=== PATIENT | male | born 1975 | race Caucasian/White ===

== ENCOUNTER 2020-12-09 23:36 | Inpatient (IN) | payer OTHER, SELFPAY ==
[2020-12-10 01:13] VITALS: BMI 40.6
[2020-12-10] MEDS: QUEtiapine Fumarate 400 MG TABLET PO ×2 (01:56→21:22)
[2020-12-10] MEDS: Gabapentin 400 MG CAPSULE PO ×2 (01:56→08:57)
[2020-12-10] MEDS: Divalproex Sodium ER 500 MG TAB.ER.24H 1000 MG PO ×3 (01:56→21:22)
[2020-12-10] MEDS: traZODone HCL 100 MG TABLET 200 MG PO ×2 (01:57→21:22)
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
--- NOTE | 2020-12-10 03:52 | PC.NURSE ---
PT's med rec included insulin. This PT stated that he has never taken insulin and he doesn't plan to start now . wedger machine provider informed.
[2020-12-10 08:24] LABS: Glucose, Whole Blood 92 mg/dL (60-115)
[2020-12-10] MEDS: Omeprazole 20 MG CAPSULE.DR PO ×2 (08:55→16:15)
[2020-12-10] MEDS: Atorvastatin Calcium 80 MG TABLET PO (08:55)
[2020-12-10] MEDS: Clopidogrel Bisulfate 75 MG TABLET PO (08:55)
[2020-12-10 08:56] VITALS: BP 119/68; PULSE 82
[2020-12-10] MEDS: Sertraline HCL 50 MG TABLET PO (08:56)
[2020-12-10] MEDS: Levothyroxine Sodium 125 MCG TABLET PO (08:56)
[2020-12-10] MEDS: dilTIAZem HCL SR 90 MG CAP.ER.12H 180 MG PO (08:56)
[2020-12-10] MEDS: Doxazosin Mesylate 2 MG TABLET PO (08:57)
[2020-12-10] MEDS: Rivaroxaban 15 MG TABLET PO (08:57)
[2020-12-10] MEDS: LORazepam 0.5 MG TABLET PO (08:57)
[2020-12-10] MEDS: Metoprolol Succinate ER 50 MG TAB.ER.24H PO (08:57)
[2020-12-10] MEDS: QUEtiapine Fumarate 100 MG TABLET PO (08:58)
[2020-12-10 09:43] VITALS: RESP 16; TEMP 36.2; O2SAT 97
--- NOTE | 2020-12-10 12:28 | HO.PM.IMCN ---
History of Present Illness Data of Consult Service Date: 12/10/20 Requesting physician: Asad Kincaid Primary Care Provider: Unknown Physician HPI Reason for consult: medical H and P 45 year male with CAD by his report has had multiple WA, he has coronary stent in place since 2006, h/o of diabetes on insulin, and Metformin, hypothyrodisim, hyperlipedemia and is obese. He is on Xarelto--indication is not clear to me. He is presently admitted to inpatient Psych unit due to increasing mood and I try to kill myself. He seems fairly stable from medical stand point, denies, angina, sob . Review of Systems Review of Systems: Gen: no fever Resp: no sob, no cough CV: no chest, no ROSE, no leg edema GI: No n/v, no abd pain Neuro: No confusion Yes all other systems are reviewed and are negative [facility] Medical History (Updated 12/10/20 @ 13:51 by Kurtis Erwin MD) BPH (benign prostatic hyperplasia) CAD (coronary artery disease) Diabetes History of pulmonary embolism HLD (hyperlipidemia) Hypothyroid Obesity Pertinent family history: CAD in father, grandfather Surgical History (Updated 12/10/20 @ 12:34 by Kurtis Erwin MD) History of coronary artery stent placement Social History Household Members: Unknown / Unable to assess Patient Tobacco Use Status: Never used Tobacco Use of substances other than those prescribed or required for medical reasons: No Currently Displaying Signs/Symptoms of Drug Intoxication Withdrawal: No Have you been hit, kicked, punched, or otherwise hurt by someone within the past year? If so, by whom?: No Do you feel safe in your current relationship?: No Is there a partner from a previous relationship who is making you feel unsafe now?: No Are you made to feel afraid or neglected: No Religion Healthcare Practices: Faith Advance Directives: No Advance Directives Information Provided: No (declined) Advance Directives on File: No Do you have thoughts of harming others: None Do you have a plan to hurt others: No Plan Recently lost weight without trying: No How much weight loss: Not applicable Eating poorly because of decreased appetite: No Nutrition screen score: 0 Nutrition Risks: No Nutritional Risk Poor oral hygiene: No Meds Allergies Allergy/AdvReac Type Severity Reaction Status Date / Time acetaminophen [From TYLENOL] Allergy Severe ANAPHYLAXIS Unverified 12/25/19 19:43 aspirin [ASA] Allergy Severe ANAPHYLAXIS Unverified 12/25/19 19:43 nitroglycerin [NITROGLYCERIN] Allergy Severe ANAPHYLAXIS Unverified 12/25/19 19:43 amoxicillin [AMOXICILLIN] Allergy Mild RASH Unverified 12/25/19 19:43 ibuprofen [IBUPROFEN] Allergy Mild ANAPHYLAXIS Unverified 12/25/19 19:43 Active Medications: Current Medications Generic Name Dose Route Start Last Admin Trade Name Manuelq PRN Reason Stop Dose Admin Al Hydroxide/Mg Hydroxide 30 ml 12/10/20 01:20 Magnesium Hydrox/Alum Hydrox 30 Ml Oral.Susp PO Q6H PRN Heartburn/Nausea Atorvastatin Calcium 80 mg 12/10/20 09:00 12/10/20 08:55 Atorvastatin Calcium 80 Mg Tablet PO 80 mg DAILY ALYCIA Administration Clopidogrel Bisulfate 75 mg 12/10/20 09:00 12/10/20 08:55 Clopidogrel Bisulfate 75 Mg Tablet PO 75 mg DAILY ALYCIA Administration Dextrose 25 gm 12/10/20 01:39 Dextrose 50 % 25 Gm/50 Ml Vial IVPUSH Q15M PRN per Hypoglycemia Standing Ord. Protocol Diltiazem HCl 180 mg 12/10/20 09:00 12/10/20 08:56 Diltiazem Hcl Sr 90 Mg Cap.Er.12h PO 180 mg DAILY ALYCIA Administration Protocol Divalproex Sodium 1,000 mg 12/10/20 01:40 12/10/20 08:56 Divalproex Sodium Er 500 Mg Tab.Er.24h PO 1,000 mg BID ALYCIA Administration Doxazosin Mesylate 2 mg 12/10/20 09:00 12/10/20 08:57 Doxazosin Mesylate 2 Mg Tablet PO 2 mg DAILY ALYCIA Administration Protocol Gabapentin 400 mg 12/10/20 01:40 12/10/20 08:57 Gabapentin 400 Mg Capsule PO 400 mg BID ALYCIA Administration Glucose 15 gm 12/10/20 01:39 Glucose Gel 15 Gm Gel..Gram. PO Q15M PRN per Hypoglycemia Standing Ord. Protocol Hydroxyzine HCl 25 mg 12/10/20 01:20 Hydroxyzine Hcl 25 Mg Tablet PO BEDTIME PRN Anxiety Insulin Glargine 10 unit 12/10/20 21:00 Insulin Glargine,Hum.Rec.Anlog 100 Unit/Ml 10 Ml Vial SUBCUT BEDTIME ALYCIA Levothyroxine Sodium 125 mcg 12/10/20 06:00 12/10/20 08:56 Levothyroxine Sodium 125 Mcg Tablet PO 125 mcg DAILY@0600 ALYCIA Administration Lorazepam 0.5 mg 12/10/20 09:00 12/10/20 08:57 Lorazepam 0.5 Mg Tablet PO 0.5 mg DAILY ALYCIA Administration Magnesium Hydroxide 30 ml 12/10/20 01:20 Milk Of Magnesia 30 Ml Oral.Susp PO DAILY PRN Constipation Metoprolol Succinate 50 mg 12/10/20 09:00 12/10/20 08:57 Metoprolol Succinate Er 50 Mg Tab.Er.24h PO 50 mg DAILY ALYCIA Administration Protocol Omeprazole 20 mg 12/10/20 06:30 12/10/20 08:55 Omeprazole 20 Mg Capsule.Dr PO 20 mg BID@0630,1630 ALYCIA Administration Quetiapine Fumarate 400 mg 12/10/20 21:00 Quetiapine Fumarate 400 Mg Tablet PO BEDTIME ALYCIA Quetiapine Fumarate 100 mg 12/10/20 09:00 12/10/20 08:58 Quetiapine Fumarate 100 Mg Tablet PO 100 mg DAILY ALYCIA Administration Rivaroxaban 15 mg 12/10/20 09:00 12/10/20 08:57 Rivaroxaban 15 Mg Tablet PO 15 mg DAILY ALYCIA Administration Sertraline HCl 50 mg 12/10/20 09:00 12/10/20 08:56 Sertraline Hcl 50 Mg Tablet PO 50 mg DAILY ALYCIA Administration Tramadol HCl 50 mg 12/10/20 01:30 Tramadol Hcl 50 Mg Tablet PO Q6H PRN Pain Mild, moderate or severe Trazodone HCl 50 mg 12/10/20 01:20 Trazodone Hcl 50 Mg Tablet PO BEDTIME PRN Insomnia Trazodone HCl 200 mg 12/10/20 21:00 Trazodone Hcl 100 Mg Tablet PO BEDTIME [facility] Physical Exam Vital Signs and Narrative: Vital Signs: Last Vital Signs Temp 97.1 F 12/10/20 09:43 Pulse 82 12/10/20 08:56 Resp 16 12/10/20 09:43 BP 119/68 12/10/20 08:56 Pulse Ox 97 12/10/20 09:43 Body Mass Index 40.6 Constitutional Awake and Alert, No apparent distress HEENT--anicteria Neck Supple, No lymphadenopathy Cardiovascular RRR, No M/R/G, S1 S2, No S3 S4, No pedal edema Respiratory Lungs clear, No respiratory distress Gastrointestinal Non tender, Non-distended Skin No rash Neurological Alert & oriented x3, CN 2 to 12 intact Psychological Appropriate affect Results Labs CBC and Chem 7: 12/10/20 13:34 12/10/20 13:34 Labs: Laboratory Results - last 24 hr 12/10/20 08:20 POC Glucose 92 Assessment and Plan (1) Obesity: Status: Acute (2) Hypothyroid: Status: Acute (3) HLD (hyperlipidemia): Status: Acute (4) History of pulmonary embolism: Status: Acute (5) Diabetes: Status: Acute (6) CAD (coronary artery disease): Status: Acute (7) BPH (benign prostatic hyperplasia): Status: Acute 45 year male with CAD with WA in past, s/p coronary stent in past, diabetes, HLD, hypothyroidism, GERD here with depression with suicidality. 1/Diabetes--He has been on Metformin but has been taken off by PCP. We should hold Lantus, check A1c and, likey diet controlled. SSI for now 2/CAD/WA--stable, no angina, continue metoprolol, statin, d/t Xarelto and Plavix. Has Aspirin allergy 3/HLD--continue Lipitor 4/Hypothyrodism--continue levothyroxine at home dose of 25 mcg daily, not 125mcg, pharmacy record also 25 mgc daily 5/RENEE--Omeprazone 6/Depression--management per Psych 7/ history of PEon Xarelto since decemberJuly 2019, not sure why he's still on it beyond 6 months, there maybe a reason such hypergoag state--need to be clarify by primary but for now continue. Xarelto prescription was renewed on November 15, 2020. 8/BPH--Flomax 9/Obesity--weight loss advised Additionally patient is Suboxone, Sinemet--presently not ordered and he is looking for them, these to be reviewed by Psych for approprateness, discussed with nurse
[2020-12-10 13:46] LABS: Hematocrit 41.2 % (42-52); Mean Corpuscular Hemoglobin 31.8 pg (27.0-33.0); Mean Corpuscular Volume 93.6 fL (80-98); Mean Platelet Volume 10.1 fL (9.4-12.4); Platelet Count 258 X10*3/uL (160-400); Red Cell Distribution Width 13.1 % (11.0-16.0); White Blood Count 4.9 X10*3/uL (4.8-10.8)
[2020-12-10 14:03] LABS: Anion Gap 10 (12-20); Blood Urea Nitrogen 15 mg/dL (9-16); Calcium 8.8 mg/dL (8.4-10.2); Carbon Dioxide 24 mmol/L (22-29); Chloride 106 mmol/L (96-108); Estimated Glomerular Filt Rate > 60; Glucose Random 179 mg/dL (60-115); Potassium 4.1 mmol/L (3.3-5.1); Sodium 136 mmol/L (135-145)
[2020-12-10 14:19] LABS: Estimated Average Glucose 111 mg/dL; Hemoglobin A1c % 5.5 %
[2020-12-10 14:30] LABS: TSH reflex Free T4 1.85 uIU/mL (0.32-4.0)
[2020-12-10 16:39] LABS: Glucose, Whole Blood 118 mg/dL (60-115)
[2020-12-10 18:00] VITALS: BP 120/64; PULSE 79; RESP 20; TEMP 36.2; O2SAT 95
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
[2020-12-10] MEDS: Ibuprofen 400 MG TABLET PO (19:29)
[2020-12-10] MEDS: Famotidine 20 MG TABLET PO (20:48)
[2020-12-10] MEDS: Gabapentin 300 MG CAPSULE PO (21:22)
[2020-12-10] MEDS: Carbidopa/Levodopa 25/100 TABLET 1 TAB PO (21:22)
[2020-12-10] MEDS: Tamsulosin HCL 0.4 MG CAPSULE PO (21:22)
[2020-12-10] MEDS: Buprenorphine/Naloxone 8/2 mg FILM 1 FILM SUBLINGUAL (21:23)
[2020-12-10] MEDS: Melatonin 3 MG TABLET PO (21:23)
[2020-12-11 06:00] VITALS: BP 122/58; PULSE 64; RESP 22; TEMP 36.3; O2SAT 95
[2020-12-11] MEDS: Omeprazole 20 MG CAPSULE.DR PO ×2 (06:47→16:53)
[2020-12-11 06:56] LABS: Glucose, Whole Blood 158 mg/dL (60-115)
[2020-12-11] MEDS: Levothyroxine Sodium 25 MCG TABLET PO (06:56)
[2020-12-11] MEDS: Ferrous Sulfate 324 MG TABLET.DR PO (08:30)
[2020-12-11] MEDS: Sertraline HCL 50 MG TABLET 150 MG PO (08:30)
[2020-12-11] MEDS: Multivitamin TABLET 1 TAB PO (08:30)
[2020-12-11] MEDS: Divalproex Sodium ER 500 MG TAB.ER.24H 1000 MG PO ×2 (08:30→20:54)
[2020-12-11] MEDS: Clopidogrel Bisulfate 75 MG TABLET PO (08:30)
[2020-12-11] MEDS: Carbidopa/Levodopa 25/100 TABLET 1 TAB PO ×2 (08:30→20:53)
[2020-12-11] MEDS: QUEtiapine Fumarate 100 MG TABLET PO (08:30)
[2020-12-11 08:31] VITALS: BP 135/75; PULSE 81
[2020-12-11] MEDS: lisinopriL 5 MG TABLET PO (08:31)
[2020-12-11] MEDS: Metoprolol Succinate ER 100 MG TAB.ER.24H PO (08:31)
[2020-12-11] MEDS: Buprenorphine/Naloxone 8/2 mg FILM 0.5 FILM SUBLINGUAL (08:32)
[2020-12-11] MEDS: Rivaroxaban 20 MG TABLET PO (08:32)
[2020-12-11] MEDS: Buprenorphine/Naloxone 8/2 mg FILM 1 FILM SUBLINGUAL ×2 (08:32→20:54)
[2020-12-11] MEDS: OLANZapine 5 MG TABLET PO (08:32)
[2020-12-11] MEDS: metFORMIN HCl 500 MG TABLET PO ×2 (08:32→16:53)
[2020-12-11] MEDS: Famotidine 20 MG TABLET PO ×2 (08:32→20:54)
[2020-12-11] MEDS: Gabapentin 300 MG CAPSULE PO ×2 (08:32→20:54)
[2020-12-11 08:33] LABS: MANUAL DIFF FLAG NO
[2020-12-11 08:35] LABS: Basophils Percent Auto 0.4 % (0-2); Eosinophils Absolute Auto 0.1 X10*3/uL (0.0-0.4); Eosinophils Percent Auto 2.2 % (0-4); Hematocrit 39.8 % (42-52); Hemoglobin 13.7 g/dl (14.0-18.0); Imm Gran Abs Auto 0.05 X10*3/uL (0.00-0.03); Imm Gran Pct Auto 1.1 % (0.0-0.4); Lymphocytes Absolute Auto 2.2 X10*3/uL (1.2-4.9); Lymphocytes Percent Auto 47.6 % (20-40); Mean Corpuscular HGB Conc 34.4 g/dl (31.0-36.0); Mean Platelet Volume 10.4 fL (9.4-12.4); Monocytes Absolute Auto 0.6 X10*3/uL (0.1-1.2); Monocytes Percent Auto 12.6 % (2-11); Neutrophils Absolute Auto 1.7 X10*3/uL (2.0-8.3); Neutrophils Percent Auto 36.1 % (45-73); Platelet Count 265 X10*3/uL (160-400); Red Blood Count 4.28 X10*6/uL (4.60-5.80); White Blood Count 4.6 X10*3/uL (4.8-10.8)
[2020-12-11 09:14] LABS: Vitamin D 25-OH Total 38.5 ng/mL (>30)
--- NOTE | 2020-12-11 12:45 | P.PNPSI_ITS ---
Subjective Subjective Date of Service: 12/11/20 Reason For Visit: Unspecified Depressive Disorder Interim History: Has been largely adherent with care. Chart reviewed. requesting diet change and there is uncertainty around diabetes status and if this is diet controlled. Client does not adhere to a diabetic diet outside hospital. When asked to discuss admission circumstances, he reported preferring not to talk about these things. As per staff no clear hallucinations. Mood carla ears okay. Medication Compliance: Yes Attending Groups: Yes Review of Systems Medical Review of Systems: unchanged Review of Systems Review of Systems noncontributory Mental Status Exam Mental Status Exam Narrative: pleasant. Limited engagement. casually dressed. Obese. In day area. He concrete. Restricted affect. Denied depression. No evidence of SI or HI. No overt psychosis noted, but hallucinations as per staff. Insight and judgment okay Diagnostics Vital Signs (24Hr): Vital Signs - 24 hr 12/10/20 18:00 12/11/20 06:00 12/11/20 08:31 Temperature 97.1 F 97.3 F Pulse Rate 79 64 81 Respiratory Rate 20 22 H Blood Pressure 120/64 122/58 L 135/75 Pulse Oximetry 95 95 Body Mass Index 40.6 Labs Results: 12/11/20 08:00 12/10/20 13:34 Labs: Laboratory Results - last 48 hr 12/10/20 12/10/20 12/10/20 08:20 12:53 13:34 WBC RBC Hgb Hct MCV MCH MCHC RDW Plt Count MPV Immature Gran % (Auto) Neut % (Auto) Lymph % (Auto) [place] % (Auto) Eos % (Auto) Baso % (Auto) Lymph # (Auto) [place] # (Auto) Eos # (Auto) Baso # (Auto) Abs Immat Gran (auto) Absolute Neuts (auto) Absolute Nucleated RBC Nucleated RBC % (auto) Sodium 136 Potassium 4.1 Chloride 106 Carbon Dioxide 24 Anion Gap 10 L BUN 15 Creatinine 0.70 Estim Creat Clear Calc 176.0 Estimated GFR > 60 POC Glucose 92 Random Glucose 179 H Estimat Average Glucose 111 Hemoglobin A1c % 5.5 Calcium 8.8 25-OH Vitamin D Total TSH 12/10/20 12/10/20 12/10/20 13:34 13:34 16:35 WBC 4.9 RBC 4.40 L Hgb 14.0 Hct 41.2 L MCV 93.6 MCH 31.8 MCHC 34.0 RDW 13.1 Plt Count 258 MPV 10.1 Immature Gran % (Auto) Neut % (Auto) Lymph % (Auto) [place] % (Auto) Eos % (Auto) Baso % (Auto) Lymph # (Auto) [place] # (Auto) Eos # (Auto) Baso # (Auto) Abs Immat Gran (auto) Absolute Neuts (auto) Absolute Nucleated RBC 0.000 Nucleated RBC % (auto) 0.0 Sodium Potassium Chloride Carbon Dioxide Anion Gap BUN Creatinine Estim Creat Clear Calc Estimated GFR POC Glucose 118 H Random Glucose Estimat Average Glucose Hemoglobin A1c % Calcium 25-OH Vitamin D Total TSH 1.85 12/11/20 12/11/20 12/11/20 06:53 08:00 08:00 WBC 4.6 L RBC 4.28 L Hgb 13.7 L Hct 39.8 L MCV 93.0 MCH 32.0 MCHC 34.4 RDW 13.0 Plt Count 265 MPV 10.4 Immature Gran % (Auto) 1.1 H Neut % (Auto) 36.1 L Lymph % (Auto) 47.6 H Robertson % (Auto) 12.6 H Eos % (Auto) 2.2 Baso % (Auto) 0.4 Lymph # (Auto) 2.2 Robertson # (Auto) 0.6 Eos # (Auto) 0.1 Baso # (Auto) 0.0 Abs Immat Gran (auto) 0.05 H Absolute Neuts (auto) 1.7 L Absolute Nucleated RBC 0.000 Nucleated RBC % (auto) 0.0 Sodium Potassium Chloride Carbon Dioxide Anion Gap BUN Creatinine Estim Creat Clear Calc Estimated GFR POC Glucose 158 H Random Glucose Estimat Average Glucose Hemoglobin A1c % Calcium 25-OH Vitamin D Total 38.5 TSH Medications Medications Current Medications Generic Name Dose Route Start Last Admin Trade Name Freq PRN Reason Stop Dose Admin Al Hydroxide/Mg Hydroxide 30 ml 12/10/20 01:20 Magnesium Hydrox/Alum Hydrox 30 Ml Oral.Susp PO Q6H PRN Heartburn/Nausea Albuterol Sulfate 2 puff 12/10/20 17:04 Albuterol Sulfate 90 Mcg 8 Gm Inhaler INHALE RQ4H PRN asthma Atorvastatin Calcium 40 mg 12/11/20 21:00 Atorvastatin Calcium 40 Mg Tablet PO BEDTIME ALYCIA Buprenorphine/Naloxone 1 film 12/10/20 21:00 12/11/20 08:32 Buprenorphine/Naloxone 8/2 Mg Film SUBLINGUAL 1 film BID ALYCIA Administration Buprenorphine/Naloxone 0.5 film 12/11/20 09:00 12/11/20 08:32 Buprenorphine/Naloxone 8/2 Mg Film SUBLINGUAL 0.5 film DAILY ALYCIA Administration Carbidopa/Levodopa 1 tab 12/10/20 21:00 12/11/20 08:30 Carbidopa/Levodopa 25/100 Tablet PO 1 tab BID ALYCIA Administration Clopidogrel Bisulfate 75 mg 12/10/20 09:00 12/11/20 08:30 Clopidogrel Bisulfate 75 Mg Tablet PO 75 mg DAILY ALYCIA Administration Divalproex Sodium 1,000 mg 12/10/20 01:40 12/11/20 08:30 Divalproex Sodium Er 500 Mg Tab.Er.24h PO 1,000 mg BID ALYCIA Administration Famotidine 20 mg 12/10/20 21:00 12/11/20 08:32 Famotidine 20 Mg Tablet PO 20 mg BID ALYCIA Administration Ferrous Sulfate 324 mg 12/11/20 09:00 12/11/20 08:30 Ferrous Sulfate 324 Mg Tablet.Dr PO 324 mg DAILY ALYCIA Administration Gabapentin 300 mg 12/10/20 21:00 12/11/20 08:32 Gabapentin 300 Mg Capsule PO 300 mg BID ALYCIA Administration Hydroxyzine HCl 50 mg 12/10/20 17:03 Hydroxyzine Hcl 25 Mg Tablet PO TID PRN Anxiety Ibuprofen 400 mg 12/10/20 18:08 12/10/20 19:29 Ibuprofen 400 Mg Tablet PO 400 mg Q6H PRN Administration mild- moderate pain Levothyroxine Sodium 25 mcg 12/11/20 06:45 12/11/20 06:56 Levothyroxine Sodium 25 Mcg Tablet PO 25 mcg DAILY@0600 ALYCIA Administration Lisinopril 5 mg 12/11/20 09:00 12/11/20 08:31 Lisinopril 5 Mg Tablet PO 5 mg DAILY ALYCIA Administration Protocol Magnesium Hydroxide 30 ml 12/10/20 01:20 Milk Of Magnesia 30 Ml Oral.Susp PO DAILY PRN Constipation Melatonin 3 mg 12/10/20 21:00 12/10/20 21:23 Melatonin 3 Mg Tablet PO 3 mg BEDTIME ALYCIA Administration Metformin HCl 500 mg 12/11/20 08:00 12/11/20 08:32 Metformin Hcl 500 Mg Tablet PO 500 mg BIDWM ALYCIA Administration Metoprolol Succinate 100 mg 12/11/20 09:00 12/11/20 08:31 Metoprolol Succinate Er 100 Mg Tab.Er.24h PO 100 mg DAILY ALYCIA Administration Protocol Multivitamins/Vitamin C 1 tab 12/11/20 09:00 12/11/20 08:30 Multivitamin Tablet PO 1 tab DAILY ALYCIA Administration Olanzapine 5 mg 12/11/20 09:00 12/11/20 08:32 Olanzapine 5 Mg Tablet PO 5 mg DAILY ALYCIA Administration Omeprazole 20 mg 12/10/20 06:30 12/11/20 06:47 Omeprazole 20 Mg Capsule. PO 20 mg BID@2080,8600 ALYCIA Administration Quetiapine Fumarate 400 mg 12/10/20 21:00 12/10/20 21:22 Quetiapine Fumarate 400 Mg Tablet PO 400 mg BEDTIME ALYCIA Administration Quetiapine Fumarate 100 mg 12/10/20 09:00 12/11/20 08:30 Quetiapine Fumarate 100 Mg Tablet PO 100 mg DAILY ALYCIA Administration Rivaroxaban 20 mg 12/11/20 09:00 12/11/20 08:32 Rivaroxaban 20 Mg Tablet PO 20 mg DAILY ALYCIA Administration Sertraline HCl 150 mg 12/11/20 09:00 12/11/20 08:30 Sertraline Hcl 50 Mg Tablet PO 150 mg DAILY ALYCIA Administration Tamsulosin HCl 0.4 mg 12/10/20 21:00 12/10/20 21:22 Tamsulosin Hcl 0.4 Mg Capsule PO 0.4 mg BEDTIME ALYCIA Administration Trazodone HCl 200 mg 12/10/20 21:00 12/10/20 21:22 Trazodone Hcl 100 Mg Tablet PO 200 mg BEDTIME ALYCIA Administration Allergies Allergies Allergy/AdvReac Type Severity Reaction Status Date / Time acetaminophen [From TYLENOL] Allergy Severe ANAPHYLAXIS Verified 12/10/20 20:07 aspirin [ASA] Allergy Severe ANAPHYLAXIS Verified 12/10/20 20:07 nitroglycerin [NITROGLYCERIN] Allergy Severe ANAPHYLAXIS Verified 12/10/20 20:07 amoxicillin [AMOXICILLIN] Allergy Mild RASH Verified 12/10/20 20:07 Assessment & Plan Assessment & Plan (1) Autism: Status: Acute Code(s): F84.0 - Autistic disorder (2) Major depressive disorder with psychotic features: Status: Acute Code(s): F32.3 - Major depressive disorder, single episode, severe with psychotic features Assessment and Plan: Charlie is a 45 y.o. Who has a diagnosis of Autism, he self presented to [facility] ED in [place] with chief complaint of chest pain, then reported experiencing SI with plan to climb to top of the [id number] and jump off and AH. He currently presents with depressed mood, denying SI or hallucinations. Says his OP medication regimen is helpful but he has been unable to consistently access meds, recently homeless, has transportation issues. He has current DDS services but says his family independence case manager is unaware of his current housing situation, last talked to her a week ago. I encouraged him to re-connect and ask for increased services, help with housing/ financial stress/ appointments (PT-1?). Plan: 1. Continue OP medication regimen, recently started in ED on 12/03/20. Reviewed risks and benefits. 2. Monitor response to medications. Monitor for safety in the milieu. Discharge on stabilization. Patient seen. Chart reviewed. Discussed with team. Obtain collateral contact info?as needed 12/11/2020: No changes to primary treatment team's plan recommendations. Will change diet back to regular diet, as client does not adhere to a diabetic diet outside of the hospital and if needed Follow blood sugars and treatment plan accordingly. Greater than 50% of the session was spent on counseling and/or coordination of care Reason for contiued inpatient stay Substantial Risk for: inability to function and rapid decompensation
[2020-12-11] MEDS: Atorvastatin Calcium 40 MG TABLET PO (20:53)
[2020-12-11] MEDS: traZODone HCL 100 MG TABLET 200 MG PO (20:53)
[2020-12-11] MEDS: QUEtiapine Fumarate 400 MG TABLET PO (20:54)
[2020-12-11] MEDS: Tamsulosin HCL 0.4 MG CAPSULE PO (20:54)
[2020-12-11] MEDS: Melatonin 3 MG TABLET PO (20:54)
[2020-12-11 20:55] VITALS: BP 128/67; PULSE 85; TEMP 36.1
[2020-12-11 23:50] LABS: Glucose, Whole Blood 103 mg/dL (60-115)
--- NOTE | 2020-12-12 | ECG_ITS ---
Test Reason : chest pain Blood Pressure : / mmHG Vent. Rate : 071 BPM Atrial Rate : 071 BPM P-R Int : 194 ms QRS Dur : 098 ms QT Int : 394 ms P-R-T Axes : 038 040 061 degrees QTc Int : 428 ms Normal sinus rhythm Normal ECG When compared with ECG of 06-NOV-2018 19:14, Heart rate has decreased Referred By: Bety Lind Electronically Signed By:JOHANNE PLATT
[2020-12-12] MEDS: Levothyroxine Sodium 25 MCG TABLET PO (05:51)
[2020-12-12] MEDS: Omeprazole 20 MG CAPSULE.DR PO ×4 (05:51→16:29)
[2020-12-12 05:58] VITALS: BP 110/57; PULSE 80; RESP 22; TEMP 36.1; O2SAT 96
[2020-12-12 06:45] LABS: Glucose, Whole Blood 97 mg/dL (60-115)
[2020-12-12] MEDS: Buprenorphine/Naloxone 8/2 mg FILM 1 FILM SUBLINGUAL (07:58)
[2020-12-12] MEDS: Buprenorphine/Naloxone 8/2 mg FILM 0.5 FILM SUBLINGUAL (07:59)
[2020-12-12 08:00] VITALS: BP 148/68; PULSE 80
[2020-12-12] MEDS: OLANZapine 5 MG TABLET PO (08:00)
[2020-12-12] MEDS: Ferrous Sulfate 324 MG TABLET.DR PO (08:00)
[2020-12-12] MEDS: Carbidopa/Levodopa 25/100 TABLET 1 TAB PO (08:00)
[2020-12-12] MEDS: Metoprolol Succinate ER 100 MG TAB.ER.24H PO (08:00)
[2020-12-12] MEDS: Sertraline HCL 50 MG TABLET 150 MG PO (08:00)
[2020-12-12] MEDS: metFORMIN HCl 500 MG TABLET PO ×2 (08:00→16:27)
[2020-12-12] MEDS: Clopidogrel Bisulfate 75 MG TABLET PO (08:00)
[2020-12-12] MEDS: Divalproex Sodium ER 500 MG TAB.ER.24H 1000 MG PO (08:00)
[2020-12-12] MEDS: QUEtiapine Fumarate 100 MG TABLET PO (08:00)
[2020-12-12] MEDS: lisinopriL 5 MG TABLET PO (08:00)
[2020-12-12] MEDS: Gabapentin 300 MG CAPSULE PO (08:00)
[2020-12-12] MEDS: Famotidine 20 MG TABLET PO (08:01)
[2020-12-12] MEDS: Multivitamin TABLET 1 TAB PO (08:01)
[2020-12-12] MEDS: Rivaroxaban 20 MG TABLET PO (08:01)
--- NOTE | 2020-12-12 11:41 | P.PNPSI_ITS ---
Subjective Subjective Date of Service: 12/12/20 Reason For Visit: Unspecified Depressive Disorder Subjective Notes: Alan Warning Interim History: Has been largely adherent with care. Chart reviewed. 3 day notice entered, alan warning given. Feels he is doing better an ready for sipo planning. As per staff no clear hallucinations. Mood appears okay. Medication Compliance: Yes Side effects from medications: No Review of Systems Acute medical concerns: No Review of Systems Review of Systems left knee pain Yes all other systems are reviewed and are negative Mental Status Exam Mental Status Exam Narrative: pleasant. Better engagement. casually dressed. Obese. He concrete. Restricted affect. Denied depression. No evidence of SI or HI. No overt psychosis. Insight and judgment okay Diagnostics Vital Signs (24Hr): Vital Signs - 24 hr 12/11/20 20:55 12/12/20 05:58 12/12/20 08:00 Temperature 97.0 F 96.9 F Pulse Rate 85 80 80 Respiratory Rate 22 H Blood Pressure 128/67 110/57 L 148/68 H Pulse Oximetry 96 Body Mass Index 40.6 Labs Results: 12/11/20 08:00 12/10/20 13:34 Labs: Laboratory Results - last 48 hr 12/10/20 12/10/20 12/10/20 12:53 13:34 13:34 WBC 4.9 RBC 4.40 L Hgb 14.0 Hct 41.2 L MCV 93.6 MCH 31.8 MCHC 34.0 RDW 13.1 Plt Count 258 MPV 10.1 Immature Gran % (Auto) Neut % (Auto) Lymph % (Auto) [place] % (Auto) Eos % (Auto) Baso % (Auto) Lymph # (Auto) [place] # (Auto) Eos # (Auto) Baso # (Auto) Abs Immat Gran (auto) Absolute Neuts (auto) Absolute Nucleated RBC 0.000 Nucleated RBC % (auto) 0.0 Sodium 136 Potassium 4.1 Chloride 106 Carbon Dioxide 24 Anion Gap 10 L BUN 15 Creatinine 0.70 Estim Creat Clear Calc 176.0 Estimated GFR > 60 POC Glucose Random Glucose 179 H Estimat Average Glucose 111 Hemoglobin A1c % 5.5 Calcium 8.8 25-OH Vitamin D Total TSH 12/10/20 12/10/20 12/11/20 13:34 16:35 06:53 WBC RBC Hgb Hct MCV MCH MCHC RDW Plt Count MPV Immature Gran % (Auto) Neut % (Auto) Lymph % (Auto) [place] % (Auto) Eos % (Auto) Baso % (Auto) Lymph # (Auto) [place] # (Auto) Eos # (Auto) Baso # (Auto) Abs Immat Gran (auto) Absolute Neuts (auto) Absolute Nucleated RBC Nucleated RBC % (auto) Sodium Potassium Chloride Carbon Dioxide Anion Gap BUN Creatinine Estim Creat Clear Calc Estimated GFR POC Glucose 118 H 158 H Random Glucose Estimat Average Glucose Hemoglobin A1c % Calcium 25-OH Vitamin D Total TSH 1.85 12/11/20 12/11/20 12/11/20 08:00 08:00 22:34 WBC 4.6 L RBC 4.28 L Hgb 13.7 L Hct 39.8 L MCV 93.0 MCH 32.0 MCHC 34.4 RDW 13.0 Plt Count 265 MPV 10.4 Immature Gran % (Auto) 1.1 H Neut % (Auto) 36.1 L Lymph % (Auto) 47.6 H [place] % (Auto) 12.6 H Eos % (Auto) 2.2 Baso % (Auto) 0.4 Lymph # (Auto) 2.2 [place] # (Auto) 0.6 Eos # (Auto) 0.1 Baso # (Auto) 0.0 Abs Immat Gran (auto) 0.05 H Absolute Neuts (auto) 1.7 L Absolute Nucleated RBC 0.000 Nucleated RBC % (auto) 0.0 Sodium Potassium Chloride Carbon Dioxide Anion Gap BUN Creatinine Estim Creat Clear Calc Estimated GFR POC Glucose 103 Random Glucose Estimat Average Glucose Hemoglobin A1c % Calcium 25-OH Vitamin D Total 38.5 TSH 12/12/20 06:20 WBC RBC Hgb Hct MCV MCH MCHC RDW Plt Count MPV Immature Gran % (Auto) Neut % (Auto) Lymph % (Auto) [place] % (Auto) Eos % (Auto) Baso % (Auto) Lymph # (Auto) [place] # (Auto) Eos # (Auto) Baso # (Auto) Abs Immat Gran (auto) Absolute Neuts (auto) Absolute Nucleated RBC Nucleated RBC % (auto) Sodium Potassium Chloride Carbon Dioxide Anion Gap BUN Creatinine Estim Creat Clear Calc Estimated GFR POC Glucose 97 Random Glucose Estimat Average Glucose Hemoglobin A1c % Calcium 25-OH Vitamin D Total TSH Medications Medications Current Medications Generic Name Dose Route Start Last Admin Trade Name Freq PRN Reason Stop Dose Admin Al Hydroxide/Mg Hydroxide 30 ml 12/10/20 01:20 Magnesium Hydrox/Alum Hydrox 30 Ml Oral.Susp PO Q6H PRN Heartburn/Nausea Albuterol Sulfate 2 puff 12/10/20 17:04 Albuterol Sulfate 90 Mcg 8 Gm Inhaler INHALE RQ4H PRN asthma Atorvastatin Calcium 40 mg 12/11/20 21:00 12/11/20 20:53 Atorvastatin Calcium 40 Mg Tablet PO 40 mg BEDTIME ALYCIA Administration Buprenorphine/Naloxone 1 film 12/10/20 21:00 12/12/20 07:58 Buprenorphine/Naloxone 8/2 Mg Film SUBLINGUAL 1 film BID ALYCIA Administration Buprenorphine/Naloxone 0.5 film 12/11/20 09:00 12/12/20 07:59 Buprenorphine/Naloxone 8/2 Mg Film SUBLINGUAL 0.5 film DAILY ALYCIA Administration Carbidopa/Levodopa 1 tab 12/10/20 21:00 12/12/20 08:00 Carbidopa/Levodopa 25/100 Tablet PO 1 tab BID ALYCIA Administration Clopidogrel Bisulfate 75 mg 12/10/20 09:00 12/12/20 08:00 Clopidogrel Bisulfate 75 Mg Tablet PO 75 mg DAILY ALYCIA Administration Divalproex Sodium 1,000 mg 12/10/20 01:40 12/12/20 08:00 Divalproex Sodium Er 500 Mg Tab.Er.24h PO 1,000 mg BID ALYCIA Administration Famotidine 20 mg 12/10/20 21:00 12/12/20 08:01 Famotidine 20 Mg Tablet PO 20 mg BID ALYCIA Administration Ferrous Sulfate 324 mg 12/11/20 09:00 12/12/20 08:00 Ferrous Sulfate 324 Mg Tablet. PO 324 mg DAILY ALYCIA Administration Gabapentin 300 mg 12/10/20 21:00 12/12/20 08:00 Gabapentin 300 Mg Capsule PO 300 mg BID ALYCIA Administration Hydroxyzine HCl 50 mg 12/10/20 17:03 Hydroxyzine Hcl 25 Mg Tablet PO TID PRN Anxiety Ibuprofen 400 mg 12/10/20 18:08 12/10/20 19:29 Ibuprofen 400 Mg Tablet PO 400 mg Q6H PRN Administration mild- moderate pain Levothyroxine Sodium 25 mcg 12/11/20 06:45 12/12/20 05:51 Levothyroxine Sodium 25 Mcg Tablet PO 25 mcg DAILY@0600 ALYCIA Administration Lisinopril 5 mg 12/11/20 09:00 12/12/20 08:00 Lisinopril 5 Mg Tablet PO 5 mg DAILY ALYCIA Administration Protocol Magnesium Hydroxide 30 ml 12/10/20 01:20 Milk Of Magnesia 30 Ml Oral.Susp PO DAILY PRN Constipation Melatonin 3 mg 12/10/20 21:00 12/11/20 20:54 Melatonin 3 Mg Tablet PO 3 mg BEDTIME ALYCIA Administration Metformin HCl 500 mg 12/11/20 08:00 12/12/20 08:00 Metformin Hcl 500 Mg Tablet PO 500 mg BIDWM ALYCIA Administration Metoprolol Succinate 100 mg 12/11/20 09:00 12/12/20 08:00 Metoprolol Succinate Er 100 Mg Tab.Er.24h PO 100 mg DAILY ALYCIA Administration Protocol Multivitamins/Vitamin C 1 tab 12/11/20 09:00 12/12/20 08:01 Multivitamin Tablet PO 1 tab DAILY ALYCIA Administration Olanzapine 5 mg 12/11/20 09:00 12/12/20 08:00 Olanzapine 5 Mg Tablet PO 5 mg DAILY ALYCIA Administration Omeprazole 20 mg 12/10/20 06:30 12/12/20 05:53 Omeprazole 20 Mg Capsule.Dr PO 20 mg BID@8663,1360 ALYCIA Administration Quetiapine Fumarate 400 mg 12/10/20 21:00 12/11/20 20:54 Quetiapine Fumarate 400 Mg Tablet PO 400 mg BEDTIME ALYCIA Administration Quetiapine Fumarate 100 mg 12/10/20 09:00 12/12/20 08:00 Quetiapine Fumarate 100 Mg Tablet PO 100 mg DAILY ALYCIA Administration Rivaroxaban 20 mg 12/11/20 09:00 12/12/20 08:01 Rivaroxaban 20 Mg Tablet PO 20 mg DAILY ALYCIA Administration Sertraline HCl 150 mg 12/11/20 09:00 12/12/20 08:00 Sertraline Hcl 50 Mg Tablet PO 150 mg DAILY ALYCIA Administration Tamsulosin HCl 0.4 mg 12/10/20 21:00 12/11/20 20:54 Tamsulosin Hcl 0.4 Mg Capsule PO 0.4 mg BEDTIME ALYCIA Administration Trazodone HCl 200 mg 12/10/20 21:00 12/11/20 20:53 Trazodone Hcl 100 Mg Tablet PO 200 mg BEDTIME ALYCIA Administration Allergies Allergies Allergy/AdvReac Type Severity Reaction Status Date / Time acetaminophen [From TYLENOL] Allergy Severe ANAPHYLAXIS Verified 12/10/20 20:07 aspirin [ASA] Allergy Severe ANAPHYLAXIS Verified 12/10/20 20:07 nitroglycerin [NITROGLYCERIN] Allergy Severe ANAPHYLAXIS Verified 12/10/20 20:07 amoxicillin [AMOXICILLIN] Allergy Mild RASH Verified 12/10/20 20:07 Assessment & Plan Assessment & Plan (1) Autism: Status: Acute Code(s): F84.0 - Autistic disorder (2) Major depressive disorder with psychotic features: Status: Acute Code(s): F32.3 - Major depressive disorder, single episode, severe with psychotic features Assessment and Plan: Charlie is a 45 y.o. Who has a diagnosis of Autism, he self presented to [facility] ED in [place] with chief complaint of chest pain, then reported experiencing SI with plan to climb to [facility] of the [facility] and jump off and AH. He currently presents with depressed mood, denying SI or hallucinations. Says his OP medication regimen is helpful but he has been unable to consistently access meds, recently homeless, has transportation issues. He has current DDS services but says his skilled nursing case manager is unaware of his current housing situation, last talked to her a week ago. I encouraged him to re-connect and ask for increased services, help with housing/ financial stress/ appointments (PT-1?). Plan: 1. Continue OP medication regimen, recently started in ED on 12/03/20. Reviewed risks and benefits. 2. Monitor response to medications. Monitor for safety in the milieu. Discharge on stabilization. Patient seen. Chart reviewed. Discussed with team. Obtain collateral contact info?as needed 12/12/2020: 3 day notice expires 12/16/20. No changes to primary treatment team's plan recommendations. lidocaine patch for knee pain Greater than 50% of the session was spent on counseling and/or coordination of care Reason for contiued inpatient stay Substantial Risk for: other (3 day notice safety observation)
[2020-12-12] MEDS: Lidocaine 4 % Patch ADH..PATCH 1 PATCH TRANSDERMA (12:06)
[2020-12-12] MEDS: Ibuprofen 400 MG TABLET PO (16:27)
--- NOTE | 2020-12-12 17:33 | PC.NURSE ---
Pt will not need to be one a 1:1, No SI/HI reported by pt. Pt is not an elopement risk. Pt came to nurse expressing that he is having chest pain. Reported that he was having numbness going down left side of arm and jaw. Vitals were 122/64 HR: 68 O2: 95% at 1702. Pt stated I have had 4 heart attacks before and it feels like this . Reported that he felt nauseous and that it started 3 hours ago but I did not want to bother anyone, but it is hurting now . A rapid response was called 1708. O2 2 Liters was put on. Patient was transferred off to [place] [id number] for further monitoring.
[2020-12-12 18:00] LABS: Troponin-I High Sensitivity < 3.5 ng/L (<3.5-35.0)
[2020-12-13 08:08] LABS: Vitamin B12 219 pg/mL (200-900)
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
== END 2020-12-12 17:39 | disposition short-term general hospital (02) | DRG 885 ==
PROVIDERS: Internal Medicine; Psychiatry & Neurology Psychiatry; Registered Nurse; Admitting Provider Psychiatry & Neurology Psychiatry; Visit Provider Psychiatry & Neurology Psychiatry
DX: F32.3 Major depressive disorder, single episode, severe with psychotic features (principal); R45.851 Suicidal ideations; Z68.41 Body mass index [BMI] 40.0-44.9, adult; F11.20 Opioid dependence, uncomplicated; F84.0 Autistic disorder; I25.10 Atherosclerotic heart disease of native coronary artery without angina pectoris; E03.9 Hypothyroidism, unspecified; E66.9 Obesity, unspecified; Z95.1 Presence of aortocoronary bypass graft; Z86.711 Personal history of pulmonary embolism; K21.9 Gastro-esophageal reflux disease without esophagitis; Z88.0 Allergy status to penicillin; Z88.6 Allergy status to analgesic agent; I25.2 Old myocardial infarction; Z79.01 Long term (current) use of anticoagulants; Z79.02 Long term (current) use of antithrombotics/antiplatelets; Z79.890 Hormone replacement therapy; Z79.899 Other long term (current) drug therapy
CPT/HCPCS: 36415; 80048; 82306; 82607; 82947; 83036; 84443; 84484; 85025; 85027; 93005

== ENCOUNTER → 2020-12-09 23:36 | Outpatient (BNV) | payer OTHER, SELFPAY | PROVIDERS: Admitting Provider Psychiatry & Neurology Psychiatry; Visit Provider Psychiatry & Neurology Psychiatry | DX: F32.2 Major depressive disorder, single episode, severe without psychotic features (principal) | CPT/HCPCS: 99499 ==

== ENCOUNTER 2020-12-12 17:40 | Observation (INO) | payer OTHER, SELFPAY ==
--- NOTE | ~2020-12-12 | XR_ITS ---
EXAMINATION: XR CHEST CLINICAL INFORMATION: Chest pain COMPARISON: Previous chest x-ray most recent October 2018 TECHNIQUE: Frontal view of the chest was obtained. FINDINGS: The lung volumes are low. The cardiac and mediastinal contours are normal. There is bilateral subsegmental atelectasis in the right upper lung and left lower lung. There lungs are otherwise clear. There is no pleural effusion or pneumothorax. Bony structures are unremarkable. XR/XR chest 1V IMPRESSION: Low lung volumes. No evidence for acute disease in the chest.
--- NOTE | 2020-12-12 17:52 | PM.IMHP ---
History of Present Illness Date of Service: 12/12/20 Chief Complaint: chest pain 45M from inpatient psychiatry after admisison after initially presenting with chest pain and then stating he was having suicial ideation. on review of [facility] records he has had multiple similar presentations. he does have history of CAD with stents in RCA. rapid response was called this evening for chest pain. patient states chest pain was constant midsternal radiating to left arm and jaw, no relieveing or aggravating factors, no shob or diaphoresis, reports that it was similar to preivous unstable angina pain. EKG showed no ST elevations, patient transferred to telemetry for observation. Review of Systems Review of Systems: Constitutional: Denies fever, denies Chills Eyes: denies blurry vision ENT: denies sore throat CVS: see hpi Respiratory: Denies dyspnea GI: no abdominal pain : denies dysuria MSK: denies neck pain Skin: denies rash Neuro: denies specific motor weakness Psych: see hpi Endocrine: denies heat/cold intolerance Hematologic: denies easy bleeding Allergy: denies hives [facility] Medical History BPH (benign prostatic hyperplasia) CAD (coronary artery disease) Diabetes History of pulmonary embolism HLD (hyperlipidemia) Hypothyroid Obesity Family history: reviewed and not pertinent Surgical History History of coronary artery stent placement Social History Household Members: Unknown / Unable to assess Patient Tobacco Use Status: Never used Tobacco Advance Directives: No Advance Directives Information Provided: No service: No Sexual orientation: Straight/Heterosexual Meds Allergies Allergy/AdvReac Type Severity Reaction Status Date / Time acetaminophen [From TYLENOL] Allergy Severe ANAPHYLAXIS Verified 12/10/20 20:07 aspirin [ASA] Allergy Severe ANAPHYLAXIS Verified 12/10/20 20:07 nitroglycerin [NITROGLYCERIN] Allergy Severe ANAPHYLAXIS Verified 12/10/20 20:07 amoxicillin [AMOXICILLIN] Allergy Mild RASH Verified 12/10/20 20:07 Active Medications: Current Medications Generic Name Dose Route Start Last Admin Trade Name Freq PRN Reason Stop Dose Admin Dextrose 25 gm 12/12/20 17:48 Dextrose 50 % 25 Gm/50 Ml Vial IVPUSH Q15M PRN per Hypoglycemia Standing Ord. Protocol Glucose 15 gm 12/12/20 17:48 Glucose Gel 15 Gm Gel..Gram. PO Q15M PRN per Hypoglycemia Standing Ord. Protocol Insulin Human Lispro 0 unit 12/12/20 21:00 Insulin Lispro 100 Unit/Ml 3 Ml Vial SUBCUT QIDACHS [facility] Protocol Omeprazole 40 mg 12/12/20 17:50 Omeprazole 40 Mg Capsule. PO DAILY@0630 [facility] Ondansetron HCl 4 mg 12/12/20 17:48 Ondansetron Hcl 4 Mg/2 Ml Vial IVPUSH Q8H PRN Nausea and Vomiting Physical Exam Vital Signs and Narrative: General: in discomfort HEENT: atraumatic Neck: normal to visual inspection CVS: S1, S2, RRR Resp: CTA bilateral Chest: non tender GI: soft, non tender, non distended : no CVA tenderness Skin: no rashes Extremities: no edema Neuro: Oriented X3, grossly intact Psych: cooperative Assessment and Plan (1) CAD (coronary artery disease): Status: Acute 45M presented as rapid respons in inpatient psychiatry for chest pain chest pain given history of multiple presentations with chest pain without organic cause, mostly likely not ACS, but does have history of CAD, so will observe on telemetry, check troponins, cxr continue plavix, statin possible GI symptoms as he just had large meal, will start prilosec DM a1c 5.5, sliding scale insulin depression/SI per psychiatry no need for 1:1 continue meds history of PE xarelto hypothyroid synthroid bph flomax obesity weight loss Quality Stroke Does the patient have a stroke diagnosis?: No VTE Prior VTE?: Yes VTE Risk Level:: Medical - moderate - high VTE Device Contraindication: Treatment Not Indicated VTE Drug Contraindication: N/A - Med Ordered
[2020-12-12 18:21] VITALS: BP 129/68; PULSE 72; RESP 18; TEMP 36.6; O2SAT 95
[2020-12-12 19:06] VITALS: BP 117/52; PULSE 65; RESP 18; TEMP 36.6; O2SAT 95
[2020-12-12] MEDS: Atorvastatin Calcium 40 MG TABLET PO (20:13)
[2020-12-12] MEDS: Divalproex Sodium ER 500 MG TAB.ER.24H 1000 MG PO (20:13)
[2020-12-12] MEDS: Carbidopa/Levodopa 25/100 TABLET 1 TAB PO (20:13)
[2020-12-12] MEDS: Gabapentin 300 MG CAPSULE PO (20:13)
[2020-12-12 20:14] VITALS: RESP 16
[2020-12-12] MEDS: Famotidine 20 MG TABLET PO (20:14)
[2020-12-12] MEDS: HYDROmorphone HCl 0.5 MG/0.5 ML SYRINGE IVPUSH (20:14)
[2020-12-12 20:19] LABS: Glucose, Whole Blood 130 mg/dL (60-115)
[2020-12-12 20:47] LABS: Troponin-I High Sensitivity < 3.5 ng/L (<3.5-35.0)
[2020-12-12] MEDS: traZODone HCL 100 MG TABLET 200 MG PO (22:03)
[2020-12-12] MEDS: QUEtiapine Fumarate 400 MG TABLET PO (22:03)
[2020-12-12 23:25] VITALS: BP 121/59; PULSE 66; RESP 18; TEMP 36.6; O2SAT 94
[2020-12-13 00:14] VITALS: RESP 16
[2020-12-13] MEDS: HYDROmorphone HCl 0.5 MG/0.5 ML SYRINGE IVPUSH ×2 (00:14→05:49)
[2020-12-13 03:37] VITALS: BP 133/65; PULSE 60; RESP 18; TEMP 36.6; O2SAT 94
[2020-12-13] MEDS: Omeprazole 40 MG CAPSULE.DR PO (05:49)
[2020-12-13] MEDS: Levothyroxine Sodium 25 MCG TABLET PO (05:49)
[2020-12-13 05:57] LABS: Hematocrit 35.7 % (42-52); Hemoglobin 12.2 g/dl (14.0-18.0); Mean Corpuscular HGB Conc 34.2 g/dl (31.0-36.0); Mean Corpuscular Volume 93.7 fL (80-98); Mean Platelet Volume 10.3 fL (9.4-12.4); Platelet Count 212 X10*3/uL (160-400); Red Blood Count 3.81 X10*6/uL (4.60-5.80)
[2020-12-13 06:12] LABS: Anion Gap 10 (12-20); Blood Urea Nitrogen 15 mg/dL (9-16); Calcium 8.6 mg/dL (8.4-10.2); Carbon Dioxide 26 mmol/L (22-29); Chloride 107 mmol/L (96-108); Estimated Glomerular Filt Rate > 60; Glucose Fasting 87 mg/dL (60-99); Potassium 4.4 mmol/L (3.3-5.1); Sodium 139 mmol/L (135-145)
[2020-12-13 07:31] LABS: Glucose, Whole Blood 80 mg/dL (60-115)
[2020-12-13 07:39] VITALS: BP 121/64; PULSE 67; RESP 20; TEMP 37.1; O2SAT 94
[2020-12-13] MEDS: Divalproex Sodium ER 500 MG TAB.ER.24H 1000 MG PO (08:33)
[2020-12-13] MEDS: OLANZapine 5 MG TABLET PO (08:34)
[2020-12-13 08:35] VITALS: BP 121/64; PULSE 67
[2020-12-13] MEDS: QUEtiapine Fumarate 100 MG TABLET PO (08:35)
[2020-12-13] MEDS: Metoprolol Succinate ER 100 MG TAB.ER.24H PO (08:35)
[2020-12-13] MEDS: Rivaroxaban 20 MG TABLET PO (08:35)
[2020-12-13] MEDS: Famotidine 20 MG TABLET PO (08:35)
[2020-12-13 08:36] VITALS: BP 121/64; PULSE 67
[2020-12-13] MEDS: Clopidogrel Bisulfate 75 MG TABLET PO (08:36)
[2020-12-13] MEDS: Carbidopa/Levodopa 25/100 TABLET 1 TAB PO (08:36)
[2020-12-13] MEDS: lisinopriL 5 MG TABLET PO (08:36)
[2020-12-13] MEDS: Buprenorphine/Naloxone 8/2 mg FILM 1 FILM SUBLINGUAL (08:37)
[2020-12-13] MEDS: Buprenorphine/Naloxone 4/1 mg FILM 1 FILM SUBLINGUAL (08:37)
[2020-12-13] MEDS: Tamsulosin HCL 0.4 MG CAPSULE PO (08:37)
[2020-12-13] MEDS: Gabapentin 300 MG CAPSULE PO (08:37)
--- NOTE | 2020-12-13 10:04 | MHC.CARE ---
CARE Team spoke with patient in room 452 on [facility] to gather updated clinical information for his return to now that he is medically stabilized. Patient stated firmly that he does not want to stay in the hospital, does not feel that he needs psychiatric treatment at this time and said he will not sign a CV. In a discussion about his plan, patient reported he has money and wants to take a bus back to [facility] (has money and looked at the bus schedule on his phone). Said he will stay with a friend who has already told him it would be OK--patient said this friend is at work and would not provide the name and number at this time. Patient identified his girlfriend, brother and good friend as his supports, said he has providers in place, does not want medication changes and does not need anything else. Denied suicidal ideation, is not experiencing hallucinations. Spoke to RN about this development and possible change of plans. call or contact centre manager psychiatrist consulted, will meet with patient. [facility] updated
--- NOTE | 2020-12-13 10:58 | P.CNPS_ITS ---
History of Present Illness Date of Service: 12/13/2020 Chief Complaint: Chest Pain Reason for Consult: Disposition planning Discussed with referring provider: Yes Sources of Information: patient interviewed and chart reviewed HPI Narrative: 45-year-old male who was on inpatient psychiatry from 12/10/2020 through yesterday 12/12/2020 and was transferred to the medical floor for evaluation of chest pain. Admission circumstances to inpatient psychiatry were chest pain clearance, SI and outside transfer. Had medical clearance for chest pain and outside facility and then voiced suicidal ideation and command auditory hallucinations. Also noted that was homelessness and unclear medication issues. Since his initial evaluation and time on the unit he has denied suicidal thoughts and has been no overt psychosis. Has been back on medications and had been doing well on the inpatient unit, attending groups, medication adherent and ordering outside food for delivery. Also noted that he does have briefcase sewer in the community and established outpatient care. Given that he was admitted on a holiday weekend, he did not engage with primary treatment team on the inpatient psychiatry unit. He was transferred to the medical floor on 12/12/2020 in the context of chest pain and for observation. Workup was unremarkable. He did not want to return to the Psychiatry floor, requesting discharge. Bezel Cutter met with patient he has his own medication supply, is able to arrange transportation to the local bus station and he will then get a bus ticket back to the [facility]. Reports that he has arranged a room to stay and has a roommate and will not be homeless upon discharge. Reports that he will engage with his briefcase sewer tomorrow i.e. on a business day and that he will check in about his follow-up appointments at [facility]. He is adamant he is not depressed suicidal or psychotic. Reports that he misuses hospital facilities at times in a negative way rather than saying I am depressed I also say I have chest pain and then when I am admitted or cleared I will usually say I have suicidal ideation for attention . I feel fine now and dont need to be in the hospital. Past Psychiatric History: See above for more recent history. As per initial evaluation history of suicide attempt in 2009. Establish briefcase sewer services in [place]. outpatient care at [facility]. [facility] Medical History BPH (benign prostatic hyperplasia) CAD (coronary artery disease) Diabetes History of pulmonary embolism HLD (hyperlipidemia) Hypothyroid Obesity Surgical History History of coronary artery stent placement Social History: See initial psych admission for more details, overall was homeless for the last month in context of issues with roommates. Reports he now has another roommate that he will be staying with. Has a vault person through [place] services. Substance History: None Trauma History: as per initial evaluations significant trauma history from father Diagnostics Vital Signs (24Hr): Vital Signs - 24 hr 12/12/20 18:21 12/12/20 19:06 12/12/20 20:14 Temperature 97.9 F 97.9 F Pulse Rate 72 65 Respiratory Rate 18 18 16 Blood Pressure 129/68 117/52 L Pulse Oximetry 95 95 12/12/20 23:25 12/13/20 00:14 12/13/20 03:37 Temperature 97.8 F 97.8 F Pulse Rate 66 60 Respiratory Rate 18 16 18 Blood Pressure 121/59 L 133/65 Pulse Oximetry 94 94 12/13/20 07:39 12/13/20 08:35 12/13/20 08:36 Temperature 98.7 F Pulse Rate 67 67 67 Respiratory Rate 20 Blood Pressure 121/64 121/64 121/64 Pulse Oximetry 94 Labs Results: 12/13/20 05:40 12/13/20 05:40 Labs: Laboratory Results - last 48 hr 12/12/20 12/12/20 12/13/20 20:15 20:16 05:40 WBC 4.0 L RBC 3.81 L Hgb 12.2 L Hct 35.7 L MCV 93.7 MCH 32.0 MCHC 34.2 RDW 13.0 Plt Count 212 MPV 10.3 Absolute Nucleated RBC 0.000 Nucleated RBC % (auto) 0.0 Sodium Potassium Chloride Carbon Dioxide Anion Gap BUN Creatinine Estim Creat Clear Calc Estimated GFR POC Glucose 130 H Fasting Glucose Calcium Troponin I High Sens < 3.5 12/13/20 12/13/20 05:40 07:22 WBC RBC Hgb Hct MCV MCH MCHC RDW Plt Count MPV Absolute Nucleated RBC Nucleated RBC % (auto) Sodium 139 Potassium 4.4 Chloride 107 Carbon Dioxide 26 Anion Gap 10 L BUN 15 Creatinine 0.66 Estim Creat Clear Calc TNP Estimated GFR > 60 POC Glucose 80 Fasting Glucose 87 Calcium 8.6 Troponin I High Sens Imaging Radiology Impressions: ITS Impressions Chest X-Ray 12/12/20 18:08 IMPRESSION: Low lung volumes. No evidence for acute disease in the chest. Mental Status Exam Mental Status Exam Narrative: alert. Oriented. Coherent. Has an organized plan for discharge, albeit what they seem to be impulsive. Largely euthymic. No SI. No HI. Future oriented. No psychosis. Insight and judgment appears fair Medications Medications Current Medications Generic Name Dose Route Start Last Admin Trade Name Freq PRN Reason Stop Dose Admin Albuterol Sulfate 2 puff 12/12/20 18:25 Albuterol Sulfate 90 Mcg 8 Gm Inhaler INHALE RQ4H PRN sob Atorvastatin Calcium 40 mg 12/12/20 21:00 12/12/20 20:13 Atorvastatin Calcium 40 Mg Tablet PO 40 mg BEDTIME ALYCIA Administration Buprenorphine/Naloxone 1 film 12/13/20 09:00 12/13/20 08:37 Buprenorphine/Naloxone 4/1 Mg Film SUBLINGUAL 1 film DAILY ALYCIA Administration Buprenorphine/Naloxone 1 film 12/12/20 21:00 12/13/20 08:37 Buprenorphine/Naloxone 8/2 Mg Film SUBLINGUAL 1 film BID ALYCIA Administration Carbidopa/Levodopa 1 tab 12/12/20 21:00 12/13/20 08:36 Carbidopa/Levodopa 25/100 Tablet PO 1 tab BID ALYCIA Administration Clopidogrel Bisulfate 75 mg 12/13/20 09:00 12/13/20 08:36 Clopidogrel Bisulfate 75 Mg Tablet PO 75 mg DAILY ALYCIA Administration Dextrose 25 gm 12/12/20 17:48 Dextrose 50 % 25 Gm/50 Ml Vial IVPUSH Q15M PRN per Hypoglycemia Standing Ord. Protocol Divalproex Sodium 1,000 mg 12/12/20 21:00 12/13/20 08:33 Divalproex Sodium Er 500 Mg Tab.Er.24h PO 1,000 mg BID ALYCIA Administration Famotidine 20 mg 12/12/20 21:00 12/13/20 08:35 Famotidine 20 Mg Tablet PO 20 mg BID ALYCIA Administration Gabapentin 300 mg 12/12/20 21:00 12/13/20 08:37 Gabapentin 300 Mg Capsule PO 300 mg TID ALYCIA Administration Glucose 15 gm 12/12/20 17:48 Glucose Gel 15 Gm Gel..Gram. PO Q15M PRN per Hypoglycemia Standing Ord. Protocol Hydromorphone HCl 0.5 mg 12/12/20 19:35 12/13/20 05:49 Hydromorphone Hcl 0.5 Mg/0.5 Ml Syringe IVPUSH 0.5 mg Q4H PRN Administration [facility] Protocol Hydroxyzine HCl 50 mg 12/12/20 18:25 Hydroxyzine Hcl 50 Mg Tablet PO Q6H PRN anxiety Insulin Human Lispro 0 unit 12/12/20 21:00 12/13/20 07:38 Insulin Lispro 100 Unit/Ml 3 Ml Vial SUBCUT Not Given QIDACHS [facility] Protocol Levothyroxine Sodium 25 mcg 12/13/20 06:00 12/13/20 05:49 Levothyroxine Sodium 25 Mcg Tablet PO 25 mcg DAILY@0600 ALYCIA Administration Lisinopril 5 mg 12/13/20 09:00 12/13/20 08:36 Lisinopril 5 Mg Tablet PO 5 mg DAILY ALYCIA Administration Protocol Metoprolol Succinate 100 mg 12/13/20 09:00 12/13/20 08:35 Metoprolol Succinate Er 100 Mg Tab.Er.24h PO 100 mg DAILY ALYCIA Administration Protocol Olanzapine 5 mg 12/13/20 09:00 12/13/20 08:34 Olanzapine 5 Mg Tablet PO 5 mg DAILY ALYCIA Administration Omeprazole 40 mg 12/12/20 17:50 12/13/20 05:49 Omeprazole 40 Mg Capsule.Dr PO 40 mg DAILY@0630 ALYCIA Administration Ondansetron HCl 4 mg 12/12/20 17:48 Ondansetron Hcl 4 Mg/2 Ml Vial IVPUSH Q8H PRN Nausea and Vomiting Quetiapine Fumarate 400 mg 12/12/20 21:00 12/12/20 22:03 Quetiapine Fumarate 400 Mg Tablet PO 400 mg BEDTIME ALYCIA Administration Quetiapine Fumarate 100 mg 12/13/20 09:00 12/13/20 08:35 Quetiapine Fumarate 100 Mg Tablet PO 100 mg DAILY ALYCIA Administration Rivaroxaban 20 mg 12/13/20 09:00 12/13/20 08:35 Rivaroxaban 20 Mg Tablet PO 20 mg DAILY ALYCIA Administration Tamsulosin HCl 0.4 mg 12/13/20 09:00 12/13/20 08:37 Tamsulosin Hcl 0.4 Mg Capsule PO 0.4 mg DAILY ALYCIA Administration Trazodone HCl 200 mg 12/12/20 21:00 12/12/20 22:03 Trazodone Hcl 100 Mg Tablet PO 200 mg BEDTIME ALYCIA Administration Allergies Allergies Allergy/AdvReac Type Severity Reaction Status Date / Time acetaminophen [From TYLENOL] Allergy Severe ANAPHYLAXIS Verified 12/10/20 20:07 aspirin [ASA] Allergy Severe ANAPHYLAXIS Verified 12/10/20 20:07 nitroglycerin [NITROGLYCERIN] Allergy Severe ANAPHYLAXIS Verified 12/10/20 20:07 amoxicillin [AMOXICILLIN] Allergy Mild RASH Verified 12/10/20 20:07 Assessment & Plan Assessment & Plan (1) Major depressive disorder with psychotic features: Status: Acute Code(s): F32.3 - Major depressive disorder, single episode, severe with psychotic features Assessment and Plan: from a psychiatric perspective presents stable and at likely baseline. Does not meet inpatient level of care and also does not want to be readmitted to the psychiatry unit and therefore no grounds for Section 12 for involuntary commitment. Disposition galan: - has a medication supply and therefore does not need prescriptions. No change the medication regimen - has a briefcase sewer that he will connect with tomorrow i.e. next business day and can do this himself - is able to work with briefcase sewer around transportation and same discussed - is connected with outpatient services at [facility] and he can follow up with him tomorrow around scheduled appointments and follow-up - team to work with inpatient Psychiatry unit around patient's property prior to discharge Greater than 50% of the session was spent on counseling and/or coordination of care Patient educated on: diagnosis and therapeutic strategies
[2020-12-13 10:59] VITALS: BP 126/64; PULSE 72; RESP 22; TEMP 36.1; O2SAT 94
--- NOTE | 2020-12-13 11:11 | P.DS_ITS ---
DS: Providers Provider Date of Service: 12/12/20 Date of admission: 12/12/20 17:40 Primary care physician: Unknown Physician DS: Diagnosis Discharge Diagnosis (1) Major depressive disorder with psychotic features: Status: Acute Data Data Completed and Pending Completed studies during hospitalization [Text1]: 12/12/20 12/12/20 12/13/20 20:15 20:16 05:40 WBC 4.0 L RBC 3.81 L Hgb 12.2 L Hct 35.7 L MCV 93.7 MCH 32.0 MCHC 34.2 RDW 13.0 Plt Count 212 MPV 10.3 Absolute Nucleated RBC 0.000 Nucleated RBC % (auto) 0.0 Sodium Potassium Chloride Carbon Dioxide Anion Gap BUN Creatinine Estim Creat Clear Calc Estimated GFR POC Glucose 130 H Fasting Glucose Calcium Troponin I High Sens < 3.5 12/13/20 12/13/20 05:40 07:22 WBC RBC Hgb Hct MCV MCH MCHC RDW Plt Count MPV Absolute Nucleated RBC Nucleated RBC % (auto) Sodium 139 Potassium 4.4 Chloride 107 Carbon Dioxide 26 Anion Gap 10 L BUN 15 Creatinine 0.66 Estim Creat Clear Calc TNP Estimated GFR > 60 POC Glucose 80 Fasting Glucose 87 Calcium 8.6 Troponin I High Sens Imaging Diagnostic Imaging Impressions Chest X-Ray 12/12/20 18:08 IMPRESSION: Low lung volumes. No evidence for acute disease in the chest. DS: Summary Hospital Course Hospital Course: Patient was admitted from inpatient psychiatry for chest pain. He had been in inpatient psychiatry for depression and SI. He was transferred to telemetry. Troponins were negative, EKG was unremarkable, chest pain did not resolve and was more GI in nature. Patient was then released seen by Psychiatry who felt that he no longer required inpatient psychiatric treatment. Patient will be discharged home he will continue on his regular medications and follow up with bilingual patient support caseworker. Time Spent with Patient Time attestation: Total time spent providing and/or coordinating discharge services: Discharge Plan Discharge Patient Disposition: Home, Self-Care Discharge Diagnosis: chest pain Referrals: Physician,Unknown J [Primary Care Provider] - 1 Week Discharge Medications: New clopidogrel 75 mg Tablet 75 mg PO DAILY Qty: 0 RF: 0 tamsulosin 0.4 mg Capsule 0.4 mg PO DAILY Qty: 0 RF: 0 albuterol sulfate [Ventolin HFA] 90 mcg/actuation Hfa Aerosol Inhaler 2 puff inhalation RQ4H PRN (Reason: sob) Qty: 0 RF: 0 Xarelto 20 mg Tablet 20 mg PO DAILY Qty: 0 RF: 0 atorvastatin 40 mg Tablet 40 mg PO BEDTIME Qty: 0 RF: 0 metoprolol succinate 100 mg Tablet Extended Release 24 Hr 100 mg PO DAILY Qty: 0 RF: 0 olanzapine 5 mg Tablet 5 mg PO DAILY Qty: 0 RF: 0 omeprazole 40 mg Capsule,Delayed Release(Dr/Ec) 40 mg PO DAILY@0630 Qty: 0 RF: 0 quetiapine 100 mg Tablet 100 mg PO DAILY Qty: 0 RF: 0 levothyroxine 25 mcg Tablet 25 mcg PO DAILY@0600 Qty: 0 RF: 0 trazodone 100 mg Tablet 200 mg PO BEDTIME Qty: 0 RF: 0 divalproex 500 mg Tablet Extended Release 24 Hr 1,000 mg PO BID Qty: 0 RF: 0 gabapentin 300 mg Capsule 300 mg PO TID Qty: 0 RF: 0 lisinopril 5 mg Tablet 5 mg PO DAILY Qty: 0 RF: 0 carbidopa-levodopa 25-100 mg Tablet 1 tab PO BID Qty: 0 RF: 0 quetiapine 400 mg Tablet 400 mg PO BEDTIME Qty: 0 RF: 0 Discharge Orders: Discharge Order (Routine); Ordered 12/12/20 Ordered By: Asad Kincaid Diet: advance to usual diet Activity on Discharge: As tolerated Stand Alone Forms: Patient Portal Discharge page Care Plan Goals: recovery Health Concerns: depression, chest pain Plan of Treatment: continue your current home meds Assessment: see above Discharge Date/Time: 12/13/20 12:14
--- NOTE | 2020-12-13 11:26 | MHC.CM.PN ---
CM MET WITH PT WHO REPORTS HE LIVES WITH A ROOM MATE AND IS FULLY INDEPENDENT. PT DENIES USE OF DME OR HOME/COMMUNITY SERVICES. PT DOES NOT HAVE A PCP OR HCP. HE IS NOT INTERESTED IN COMPLETING A HCP AND SAYS HE KNOWS HOW TO GET A PCP IF HE WANTS ONE. PT WAS TRANSFERRED FROM HOWEVER REPORTS HE WOULD LIKE TO [place] HOME. PT DENIED ANY SI OR OTHER CONCERNS BUT IS AWARE HE WILL SPEAK WITH SOMEONE FROM THE BEHAVIORAL HEALTH TEAM. PT REPORTS HE CAN GO TO THE [employer] AND GET A TAXI BACK TO [place] WHERE HE LIVES. DC PLAN IS HOME PT REPORTS HE WILL ARRANGE HIS OWN TRANSPORT
--- NOTE | 2020-12-13 11:55 | PC.NURSE ---
Pt is waiting for discharge. He refused to have POC and has refused lunch.
--- NOTE | 2020-12-13 11:59 | P.DS_ITS ---
DS: Providers Provider Date of Service: 12/13/20 Date of admission: 12/12/20 17:40 Primary care physician: Unknown Physician DS: Diagnosis Discharge Diagnosis (1) Major depressive disorder with psychotic features: Status: Acute (2) CAD (coronary artery disease): Status: Acute (3) Chest pain: Status: Acute DS: Summary Hospital Course Hospital Course: Patient was admitted from inpatient psychiatry for chest pain. He had been in inpatient psychiatry for depression and SI. He was transferred to telemetry. Troponins were negative, EKG was unremarkable, chest pain did not resolve and was more GI in nature. Patient was then released seen by Psychiatry who felt that he no longer required inpatient psychiatric treatment. Patient will be discharged home he will continue on his regular medications and follow up with manager of case management. Time Spent with Patient Time attestation: Total time spent providing and/or coordinating discharge services: Discharge coordination time: Greater than 30 minutes Quality: Stroke Does the patient have a stroke diagnosis?: No Physical Exam Vital Signs: Vital Signs: Last Vital Signs Temp 97.0 F 12/13/20 10:59 Pulse 72 12/13/20 10:59 Resp 22 H 12/13/20 10:59 BP 126/64 12/13/20 10:59 Pulse Ox 94 12/13/20 10:59 General: AO X 3, no acute distress Resp: CTA bilateral CVS: S1,S2,RRR GI: soft, non tender, non distended Neuro: motor grossly intact Psych: appropriate affect DS: Data Data Completed and Pending Labs on day of discharge: Laboratory Results - last 24 hr 12/12/20 12/12/20 12/13/20 20:15 20:16 05:40 WBC 4.0 L RBC 3.81 L Hgb 12.2 L Hct 35.7 L MCV 93.7 MCH 32.0 MCHC 34.2 RDW 13.0 Plt Count 212 MPV 10.3 Absolute Nucleated RBC 0.000 Nucleated RBC % (auto) 0.0 Sodium Potassium Chloride Carbon Dioxide Anion Gap BUN Creatinine Estim Creat Clear Calc Estimated GFR POC Glucose 130 H Fasting Glucose Calcium Troponin I High Sens < 3.5 12/13/20 12/13/20 05:40 07:22 WBC RBC Hgb Hct MCV MCH MCHC RDW Plt Count MPV Absolute Nucleated RBC Nucleated RBC % (auto) Sodium 139 Potassium 4.4 Chloride 107 Carbon Dioxide 26 Anion Gap 10 L BUN 15 Creatinine 0.66 Estim Creat Clear Calc TNP Estimated GFR > 60 POC Glucose 80 Fasting Glucose 87 Calcium 8.6 Troponin I High Sens Discharge Plan Discharge Patient Disposition: Home, Self-Care Discharge Diagnosis: chest pain Referrals: Physician,Unknown [Primary Care Provider] - 1 Week Discharge Medications: New clopidogrel 75 mg Tablet 75 mg PO DAILY Qty: 0 RF: 0 tamsulosin 0.4 mg Capsule 0.4 mg PO DAILY Qty: 0 RF: 0 albuterol sulfate [Ventolin HFA] 90 mcg/actuation Hfa Aerosol Inhaler 2 puff inhalation RQ4H PRN (Reason: sob) Qty: 0 RF: 0 Xarelto 20 mg Tablet 20 mg PO DAILY Qty: 0 RF: 0 atorvastatin 40 mg Tablet 40 mg PO BEDTIME Qty: 0 RF: 0 metoprolol succinate 100 mg Tablet Extended Release 24 Hr 100 mg PO DAILY Qty: 0 RF: 0 olanzapine 5 mg Tablet 5 mg PO DAILY Qty: 0 RF: 0 omeprazole 40 mg Capsule,Delayed Release(Dr/Ec) 40 mg PO DAILY@0630 Qty: 0 RF: 0 quetiapine 100 mg Tablet 100 mg PO DAILY Qty: 0 RF: 0 levothyroxine 25 mcg Tablet 25 mcg PO DAILY@0600 Qty: 0 RF: 0 trazodone 100 mg Tablet 200 mg PO BEDTIME Qty: 0 RF: 0 divalproex 500 mg Tablet Extended Release 24 Hr 1,000 mg PO BID Qty: 0 RF: 0 gabapentin 300 mg Capsule 300 mg PO TID Qty: 0 RF: 0 lisinopril 5 mg Tablet 5 mg PO DAILY Qty: 0 RF: 0 carbidopa-levodopa 25-100 mg Tablet 1 tab PO BID Qty: 0 RF: 0 quetiapine 400 mg Tablet 400 mg PO BEDTIME Qty: 0 RF: 0 Discharge Orders: Discharge Order (Routine); Ordered 12/12/20 Ordered By: Asad Kincaid Diet: advance to usual diet Activity on Discharge: As tolerated Stand Alone Forms: Patient Portal Discharge page Care Plan Goals: recovery Health Concerns: depression, chest pain Plan of Treatment: continue your current home meds Assessment: see above
== END 2020-12-13 12:14 | disposition home or self-care (01) ==
PROVIDERS: Admitting Provider Internal Medicine; Visit Provider Internal Medicine
DX: I25.10 Atherosclerotic heart disease of native coronary artery without angina pectoris (principal); F32.3 Major depressive disorder, single episode, severe with psychotic features; R07.9 Chest pain, unspecified; N40.0 Benign prostatic hyperplasia without lower urinary tract symptoms; E11.9 Type 2 diabetes mellitus without complications; E78.5 Hyperlipidemia, unspecified; E03.9 Hypothyroidism, unspecified; Z59.0 Homelessness; Z95.5 Presence of coronary angioplasty implant and graft; Z88.8 Allergy status to other drugs, medicaments and biological substances; Z79.4 Long term (current) use of insulin; Z79.899 Other long term (current) drug therapy
CPT/HCPCS: 36415; 71045; 80048; 82947; 84484; 85027; 99218; J1170

== ENCOUNTER 2023-04-03 19:10 | Emergency (ER) | payer OTHER, SELFPAY ==
--- NOTE | ~2023-04-03 | XR_ITS ---
EXAMINATION: XR CHEST CLINICAL INFORMATION: Chest pain COMPARISON: Previous chest x-ray most recent December 2020 TECHNIQUE: Frontal view of the chest was obtained. FINDINGS: The cardiac and mediastinal contours are stable. Lung volumes are low. There is question of atelectasis or small infiltrate in the left lung base. The lungs are otherwise clear. No pleural effusion or pneumothorax. Bony structures are unremarkable. XR/XR chest 1V IMPRESSION: Low lung volumes. Question atelectasis or small infiltrate in the left lung base.
[2023-04-03 19:18] VITALS: BP 130/70; PULSE 76; O2SAT 95
[2023-04-03 19:20] VITALS: BP 118/66; PULSE 84; RESP 20; TEMP 36.9; O2SAT 100; BMI 33.7
[2023-04-03 19:30] VITALS: PULSE 83
--- NOTE | 2023-04-03 19:32 | ECG_ITS ---
Test Reason : CHEST PAIN Blood Pressure : / mmHG Vent. Rate : 087 BPM Atrial Rate : 087 BPM P-R Int : 176 ms QRS Dur : 096 ms QT Int : 368 ms P-R-T Axes : 039 025 057 degrees QTc Int : 442 ms Normal sinus rhythm Normal ECG When compared with ECG of 12-DEC-2020 17:21, No significant change was found Referred By: Generic ED Physician Electronically Signed By:NORM BOWERS
--- NOTE | 2023-04-03 19:52 | ED.CHESTPAIN ---
HPI - Chest Pain General Chief Complaint: Chest Pain Stated Complaint: chest pain,radiating to L arm, hx heart attack Time Seen by Provider: 04/03/23 19:42 Source: patient Mode of arrival: ambulatory Limitations: no limitations History of Present Illness HPI narrative: Patient comes to the emergency room via ambulance from a CHD /psychiatric facility. Patient comes in complaining of chest pain that started approximately around 19:00. Patient states the pain is 10/10. Patient states that he cannot take aspirin nitroglycerin because he has anaphylaxis to. Patient states he has history of 5 mm. Reviewing patient's notes, patient has similar episode in 2020, patient had chest pain for days, unresolved, cardiology was involved, chest pain secondary to GI in nature. Related Data Previous Rx's Medication Instructions Recorded albuterol sulfate 90 mcg/actuation 2 puff inhalation RQ4H PRN sob #0 12/13/20 aerosol inhaler (Ventolin HFA) grams atorvastatin 40 mg tablet 40 mg PO BEDTIME #0 tabs 12/13/20 carbidopa 25 mg-levodopa 100 mg 1 tab PO BID #0 tabs 12/13/20 tablet clopidogrel 75 mg tablet 75 mg PO DAILY #0 tabs 12/13/20 divalproex 500 mg tablet,extended 1,000 mg (2 x 500 mg) PO BID #0 12/13/20 release 24 hr tabs gabapentin 300 mg capsule 300 mg PO TID #0 caps 12/13/20 levothyroxine 25 mcg tablet 25 mcg PO DAILY@0600 #0 tabs 12/13/20 lisinopril 5 mg tablet 5 mg PO DAILY #0 tabs 12/13/20 metoprolol succinate 100 mg 100 mg PO DAILY #0 tabs 12/13/20 tablet,extended release 24 hr olanzapine 5 mg tablet 5 mg PO DAILY #0 tabs 12/13/20 omeprazole 40 mg capsule,delayed 40 mg PO DAILY@0630 #0 caps 12/13/20 release quetiapine 100 mg tablet 100 mg PO DAILY #0 tabs 12/13/20 quetiapine 400 mg tablet 400 mg PO BEDTIME #0 tabs 12/13/20 rivaroxaban 20 mg tablet (Xarelto) 20 mg PO DAILY #0 tabs 12/13/20 tamsulosin 0.4 mg capsule 0.4 mg PO DAILY #0 caps 12/13/20 trazodone 100 mg tablet 200 mg (2 x 100 mg) PO BEDTIME #0 12/13/20 tabs azithromycin 250 mg tablet 250 mg PO DAILY 4 days #4 tabs 04/03/23 cefuroxime axetil 250 mg tablet 250 mg PO BID 5 days #10 tabs 04/03/23 Allergies Allergy/AdvReac Type Severity Reaction Status Date / Time acetaminophen [From TYLENOL] Allergy Severe ANAPHYLAXIS Verified 12/10/20 20:07 aspirin [ASA] Allergy Severe ANAPHYLAXIS Verified 12/10/20 20:07 nitroglycerin [NITROGLYCERIN] Allergy Severe ANAPHYLAXIS Verified 12/10/20 20:07 amoxicillin [AMOXICILLIN] Allergy Mild RASH Verified 12/10/20 20:07 Review of Systems Review of Systems: Constitutional : No Weight loss, No Fever, No Chills, No Night Sweats, No Fatigue, No Malaise ENT/Mouth : No Hearing loss, No Ear Pain, No Nasal Congestion, No Sinus Pain, No Hoarseness, No sore throat, No Rhinorrhea, No Swallowing Difficulty Eyes: No Eye Pain, No Swelling, No Redness, No Foreign Body, No Discharge, No Vision Changes Cardiovascular : Complaining of chest pain,, No SOB, No Dyspnea on Exertion, No Orthopnea, No Edema, No Palpitations Respiratory : No Cough, No Sputum, No Wheezing, No Smoke Exposure, No Dyspnea Gastrointestinal : No Nausea, No Vomiting, No Diarrhea, No Constipation, No abdominal Pain, No Hematochezia, No Melena Genitourinary : no irregular bleeding, No Dysuria, No Urinary Frequency, No Hematuria, No Urinary Incontinence, No Urgency, No Flank Pain, No Urinary Flow Changes, No Hesitancy Musculoskeletal : No joint pain, No Myalgias, No Joint Swelling Skin : No Skin Lesions, No rash Neuro : No Weakness, No Numbness, No Paresthesias, No Loss of Consciousness, No Dizziness, No Headache Psych : No Anxiety/Panic, No Depression, No SI/HI/AH/VH, No Social Issues, Heme/Lymph: No Bruising, No Bleeding,No Lymphadenopathy Endocrine : No Polyuria, No Polydipsia, No Temperature Intolerance [facility] Past Medical History Medical History History of pulmonary embolism BPH (benign prostatic hyperplasia) Diabetes Obesity Hypothyroid HLD (hyperlipidemia) CAD (coronary artery disease) Surgical History History of coronary artery stent placement Social History Social History Household Members: Unknown / Unable to assess Patient Tobacco Use Status: Never used Tobacco Use of substances other than those prescribed or required for medical reasons: No Advance Directives: No Advance Directives Information Provided: No service: No Current occupational status: unemployed Sexual orientation: Straight/Heterosexual Physical Exam Vital Signs: Vital Signs: BMI result Body Mass Index 33.7 Const: Other: Appearance: Alert. Oriented X3. No acute distress. Well-appearing Eyes: Pupils equal, round and reactive to light. ENT: Pharynx normal. Neck: Normal inspection. Neck supple. No lymph nodes noted. No crepitus CVS: Normal heart rate and rhythm. Pulses normal. Normal S1 and S2 Respiratory: No respiratory distress. Breath sounds normal. No Wheezing. No rales Abdomen: Soft and nontender. No rigidity. No distention. Skin: Skin warm and dry. Normal skin color. Normal skin turgor. Extremities: No lower extremity edema. No Lacerations. No Rash Neuro: Oriented X 3. No motor deficit. No sensory deficit. Moving all extremities. No slurred speech. CN 2 through 12 grossly intact Psych: calm, cooperative, normal affect Medications Administered Discontinued Medications Generic Name Dose Route Start Last Admin Trade Name Freq PRN Reason Stop Dose Admin Al Hydroxide/Mg Hydroxide 30 ml 04/03/23 21:25 04/03/23 21:37 Magnesium Hydrox/Alum Hydrox 30 Ml Oral.Susp PO 04/03/23 21:26 30 ml ONCE ONE Administration Lidocaine HCl 15 ml 04/03/23 21:25 04/03/23 21:38 Lidocaine Hcl Viscous 2 % 15 Ml Solution MUCOUS MEM 04/03/23 21:26 15 ml ONCE ONE Administration Medical Decision Making Medical Decision Making MDM Narrative: -my interpretation of EKG: Normal sinus rhythm, heart rate 87, no ST segment depression or elevation, no T-wave inversion, QTC 442 -my interpretation of labs: Normal white blood cell count, Hematology at baseline. Slightly anemic, chronic chemistry at baseline, troponin 1. Negative, BNP negative. -repeat troponin due at 2300 -patient states that he has chest pain. Patient seems to be resting comfortably in bed, playing with his phone. Patient states that he is allergic to aspirin, nitroglycerin, acetaminophen and Tylenol. -I reviewed patient's records from previous admission, patient had chest pain for 3 days, the chest pain never resolved, it was determined by cardiology that the pain is likely gastrointestinal. Patient was given a dose of p.o. viscous lidocaine and Maalox. -my interpretation of chest x-ray: No obvious abnormality. Radiology reports a possible left lower lobe infiltrate. Patient's white blood cell count within normal limits. Patient reports no coughing, no URIs at all. Given patient's symptoms, will go ahead and treat. Differential Diagnosis Differential Diagnoses: The differential diagnosis associated with the presentation includes (ACS, GERD, medication seeking) Admission/Observation Consideration of admission/observation: Escalation of care including admission/observation considered (Patient is waiting for a 2nd troponin, on physician observation in the ED) Lab Data MDM Lab Attestation statement: I reviewed the patient's lab results. 04/03/23 19:56 04/03/23 19:56 Labs: Lab Results 04/03/23 Range/Units 19:56 WBC 7.2 (4.8-10.8) X10*3/uL RBC 4.07 L (4.60-5.80) X10*6/uL Hgb 10.5 L (14.0-18.0) g/dl Hct 33.5 L (42.0-52.0) % MCV 82.3 (80.0-98.0) fL MCH 25.8 L (27.0-33.0) pg MCHC 31.3 (31.0-36.0) g/dl RDW 16.4 H (11.0-16.0) % Plt Count 311 (160-400) X10*3/uL MPV 10.2 (9.4-12.4) fL Immature Gran % (Auto) 0.8 H (0.0-0.4) % Neut % (Auto) 54.7 (45-73) % Lymph % (Auto) 32.0 (20-40) % Crane % (Auto) 10.0 (2-11) % Eos % (Auto) 2.1 (0-4) % Baso % (Auto) 0.4 (0-2) % Lymph # (Auto) 2.3 (1.2-4.9) X10*3/uL Crane # (Auto) 0.7 (0.1-1.2) X10*3/uL Eos # (Auto) 0.2 (0.0-0.4) X10*3/uL Baso # (Auto) 0.0 (0.0-0.2) X10*3/uL Abs Immat Gran (auto) 0.06 H (0.00-0.03) X10*3/uL Absolute Neuts (auto) 3.9 (2.0-8.3) x10*3/uL Absolute Nucleated RBC 0.000 (0.0-0.012) X10*3/uL Nucleated RBC % (auto) 0.0 (0.0-0.2) /100WBC Sodium 139 (135-145) mmol/L Potassium 4.0 (3.3-5.1) mmol/L Chloride 109 H (96-108) mmol/L Carbon Dioxide 23 (22-29) mmol/L Anion Gap 11 L (12-20) BUN 18 H (9-16) mg/dL Creatinine 0.73 (0.5-1.4) mg/dL Estim Creat Clear Calc 154.5 Estimated GFR > 60 Random Glucose 93 (60-115) mg/dL Calcium 8.5 (8.4-10.2) mg/dL Troponin I High Sens < 2.7 (<3.5-35.0) ng/L B-Natriuretic Peptide 17 (<100) pg/mL Independent Interpretation I performed an independent interpretation of an: EKG and Plain X-Ray (My interpretation of chest x-ray: No obvious abnormalities. Radiology report a questionable small infiltrate versus atelectasis.) Critical Care Time Critical Care Time Critical Care Time: Yes Total Critical Care Time: 60 Attestation: I have personally provided critical care time. Time includes review of lab data, radiology results, discussion with consultants, and monitoring for potential decompensation. Intervention performed as documented. Discharge Plan Discharge Clinical Impression: Atypical chest pain, GERD (gastroesophageal reflux disease), Pneumonia Patient Disposition: Still a Patient Instructions: Chest Pain (ED) Additional Instructions: Please follow-up with your primary care physician tomorrow. If you have any worsening or new symptoms, please return to the emergency room or call 911 Prescriptions: New cefuroxime axetil 250 mg tablet 250 mg PO BID 5 Days Qty: 10 0RF azithromycin 250 mg tablet 250 mg PO DAILY 4 Days Qty: 4 0RF Rx Instructions: start on day 2 of therapy No Action clopidogrel 75 mg Tablet 75 mg PO DAILY Qty: 0 0RF tamsulosin 0.4 mg Capsule 0.4 mg PO DAILY Qty: 0 0RF albuterol sulfate [Ventolin HFA] 90 mcg/actuation Hfa Aerosol Inhaler 2 puff inhalation RQ4H PRN (Reason: sob) Qty: 0 0RF Xarelto 20 mg Tablet 20 mg PO DAILY Qty: 0 0RF atorvastatin 40 mg Tablet 40 mg PO BEDTIME Qty: 0 0RF metoprolol succinate 100 mg Tablet Extended Release 24 Hr 100 mg PO DAILY Qty: 0 0RF Protocol: Hold for SBP/HR < HOLD for SBP < : 90 HOLD for HR < : 60 olanzapine 5 mg Tablet 5 mg PO DAILY Qty: 0 0RF omeprazole 40 mg Capsule,Delayed Release(Dr/Ec) 40 mg PO DAILY@0630 Qty: 0 0RF quetiapine 100 mg Tablet 100 mg PO DAILY Qty: 0 0RF levothyroxine 25 mcg Tablet 25 mcg PO DAILY@0600 Qty: 0 0RF trazodone 100 mg Tablet 200 mg PO BEDTIME Qty: 0 0RF divalproex 500 mg Tablet Extended Release 24 Hr 1,000 mg PO BID Qty: 0 0RF gabapentin 300 mg Capsule 300 mg PO TID Qty: 0 0RF lisinopril 5 mg Tablet 5 mg PO DAILY Qty: 0 0RF Protocol: Hold for SBP< HOLD for SBP < : 90 carbidopa-levodopa 25-100 mg Tablet 1 tab PO BID Qty: 0 0RF quetiapine 400 mg Tablet 400 mg PO BEDTIME Qty: 0 0RF
[2023-04-03 20:02] LABS: MANUAL DIFF FLAG NO
[2023-04-03 20:10] LABS: Basophils Percent Auto 0.4 % (0-2); Eosinophils Absolute Auto 0.2 X10*3/uL (0.0-0.4); Eosinophils Percent Auto 2.1 % (0-4); Hematocrit 33.5 % (42.0-52.0); Hemoglobin 10.5 g/dl (14.0-18.0); Imm Gran Abs Auto 0.06 X10*3/uL (0.00-0.03); Imm Gran Pct Auto 0.8 % (0.0-0.4); Lymphocytes Absolute Auto 2.3 X10*3/uL (1.2-4.9); Mean Corpuscular HGB Conc 31.3 g/dl (31.0-36.0); Mean Corpuscular Hemoglobin 25.8 pg (27.0-33.0); Mean Corpuscular Volume 82.3 fL (80.0-98.0); Mean Platelet Volume 10.2 fL (9.4-12.4); Monocytes Absolute Auto 0.7 X10*3/uL (0.1-1.2); Neutrophils Absolute Auto 3.9 x10*3/uL (2.0-8.3); Neutrophils Percent Auto 54.7 % (45-73); Platelet Count 311 X10*3/uL (160-400); Red Blood Count 4.07 X10*6/uL (4.60-5.80); Red Cell Distribution Width 16.4 % (11.0-16.0); White Blood Count 7.2 X10*3/uL (4.8-10.8)
[2023-04-03 20:18] LABS: Anion Gap 11 (12-20); Blood Urea Nitrogen 18 mg/dL (9-16); Calcium 8.5 mg/dL (8.4-10.2); Carbon Dioxide 23 mmol/L (22-29); Chloride 109 mmol/L (96-108); Creatinine Clr Calc Pharmacy 154.5; Estimated Glomerular Filt Rate > 60; Glucose Random 93 mg/dL (60-115); Sodium 139 mmol/L (135-145)
[2023-04-03 20:25] LABS: B Type Natriuretic Peptide 17 pg/mL (<100)
[2023-04-03 20:28] LABS: Troponin-I High Sensitivity < 2.7 ng/L (<3.5-35.0)
[2023-04-03] MEDS: Magnesium Hydrox/Alum Hydrox 30 ML ORAL.SUSP PO (21:37)
[2023-04-03] MEDS: Lidocaine HCl Viscous 2 % 15 ML SOLUTION MUCOUS MEM (21:38)
[2023-04-03] MEDS: cefuroxime axetiL 500 MG TABLET PO (23:16)
[2023-04-03] MEDS: Azithromycin 500 MG TABLET PO (23:16)
[2023-04-03 23:19] VITALS: BP 127/79; PULSE 79; RESP 19; TEMP 36.9; O2SAT 99
[2023-04-03 23:59] LABS: Troponin-I High Sensitivity < 2.7 ng/L (<3.5-35.0)
--- NOTE | 2023-04-04 00:52 | MHC.EDTECH ---
call out to paul at 0045 to book transpot for pt, estimated eta given was 0145
[2023-04-04 01:30] VITALS: BP 115/50; PULSE 88; RESP 16; TEMP 36.7; O2SAT 97
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
== END 2023-04-04 02:50 | disposition home or self-care (01) ==
PROVIDERS: Emergency Medicine; Emergency Provider Emergency Medicine
DX: J18.9 Pneumonia, unspecified organism (principal); R07.89 Other chest pain; M79.602 Pain in left arm; K21.9 Gastro-esophageal reflux disease without esophagitis; R06.02 Shortness of breath; Z79.899 Other long term (current) drug therapy
CPT/HCPCS: 36415; 71045; 80048; 83880; 84484; 85025; 93005; 99283; 99285

== ENCOUNTER → 2023-04-03 19:32 | Outpatient (BNV) | payer OTHER, SELFPAY | PROVIDERS: Emergency Provider Emergency Medicine; Visit Provider Internal Medicine | DX: R07.9 Chest pain, unspecified (principal) | CPT/HCPCS: 93010 ==

== ENCOUNTER → 2023-04-03 20:00 | Outpatient (BNV) | payer OTHER, SELFPAY | PROVIDERS: Emergency Provider Emergency Medicine; Visit Provider Psychiatry & Neurology Psychiatry | DX: R07.89 Other chest pain (principal) | CPT/HCPCS: 99499 ==

== ENCOUNTER 2024-04-21 15:59 | Inpatient (IN) | payer OTHER, SELFPAY ==
--- NOTE | ~2024-04-21 | XR_ITS ---
CLINICAL HISTORY: pain 2 view chest x-ray Comparison: CR/SR - XR CHEST 1V - 04/03/23 20:14 EST Findings: No consolidation, pleural effusion or pneumothorax. Heart size is normal. No acute fracture. IMPRESSION: No acute cardiopulmonary process. This document has been electronically signed by: Sabine Mobley DO on 04/21/2024 17:15:38
--- NOTE | ~2024-04-21 | XR_ITS ---
EXAMINATION: XR HAND 3 OR MORE VIEWS LEFT HISTORY: On 04/24 pt punched a wall COMPARISON: There are no prior studies available for comparison. FINDINGS: Three views of the left hand are submitted. Osseous mineralization is normal. There is no fracture or dislocation. The joint spaces are preserved. The soft tissues are unremarkable. XR/XR hand LT min 3V IMPRESSION: No evidence of fracture of the left hand. Electronically signed by: Daljit Wong MD 04/25/2024 12:34 PM EST
[2024-04-21 16:23] VITALS: BP 110/68; BP 126/76; PULSE 102; PULSE 99; RESP 16; TEMP 36.9; O2SAT 99; BMI 37.3
--- NOTE | 2024-04-21 16:25 | ECG_ITS ---
Test Reason : pain Blood Pressure : */* mmHG Vent. Rate : 95 BPM Atrial Rate : 95 BPM P-R Int : 170 ms QRS Dur : 96 ms QT Int : 342 ms P-R-T Axes : 40 35 45 degrees QTcB Int : 429 ms Normal sinus rhythm Normal ECG No previous ECGs available Referred By: Ria Ma Electronically Signed By: Xander Pavon
--- NOTE | 2024-04-21 16:27 | ED.CHESTPAIN ---
HPI - Chest Pain General Chief Complaint: Chest Pain Stated Complaint: CP RADIATING TO LT SHOULD PER EMS Time Seen by Provider: 04/21/24 16:24 Source: patient Limitations: no limitations History of Present Illness ED Provider: Ria Ma PA-C HPI narrative: 48-year-old male with a history of autism, obesity, hypothyroidism, hyperlipidemia, HTN, diabetes, ?6 heart attacks per patient with a 1 cardiac stent ?,prior PE on Xarelto, BPH presents with chest pain since this afternoon. Pain over left anterior chest which radiates to his mid back and left upper extremity. Pain described as pressure that is constant. Denies recent cough or cold symptoms, no fever. Denies abdominal pain nausea or vomiting. Denies diaphoresis or shortness of breath. Related Data Previous Rx's ?Medication ?Instructions ?Recorded albuterol sulfate 90 mcg/actuation 2 puff inhalation RQ4H PRN sob #0 12/13/20 aerosol inhaler (Ventolin HFA) grams atorvastatin 40 mg tablet 40 mg PO BEDTIME #0 tabs 12/13/20 carbidopa 25 mg-levodopa 100 mg 1 tab PO BID #0 tabs 12/13/20 tablet clopidogrel 75 mg tablet 75 mg PO DAILY #0 tabs 12/13/20 divalproex 500 mg tablet,extended 1,000 mg (2 x 500 mg) PO BID #0 12/13/20 release 24 hr tabs gabapentin 300 mg capsule 300 mg PO TID #0 caps 12/13/20 levothyroxine 25 mcg tablet 25 mcg PO DAILY@0600 #0 tabs 12/13/20 lisinopril 5 mg tablet 5 mg PO DAILY #0 tabs 12/13/20 metoprolol succinate 100 mg 100 mg PO DAILY #0 tabs 12/13/20 tablet,extended release 24 hr olanzapine 5 mg tablet 5 mg PO DAILY #0 tabs 12/13/20 omeprazole 40 mg capsule,delayed 40 mg PO DAILY@0630 #0 caps 12/13/20 release quetiapine 100 mg tablet 100 mg PO DAILY #0 tabs 12/13/20 quetiapine 400 mg tablet 400 mg PO BEDTIME #0 tabs 12/13/20 rivaroxaban 20 mg tablet (Xarelto) 20 mg PO DAILY #0 tabs 12/13/20 tamsulosin 0.4 mg capsule 0.4 mg PO DAILY #0 caps 12/13/20 trazodone 100 mg tablet 200 mg (2 x 100 mg) PO BEDTIME #0 12/13/20 tabs azithromycin 250 mg tablet 250 mg PO DAILY 4 days #4 tabs 04/03/23 cefuroxime axetil 250 mg tablet 250 mg PO BID 5 days #10 tabs 04/03/23 Allergies Allergy/AdvReac Type Severity Reaction Status Date / Time acetaminophen [From TYLENOL] Allergy Severe ANAPHYLAXIS Verified 12/10/20 20:07 aspirin [ASA] Allergy Severe ANAPHYLAXIS Verified 12/10/20 20:07 nitroglycerin [NITROGLYCERIN] Allergy Severe ANAPHYLAXIS Verified 12/10/20 20:07 amoxicillin [AMOXICILLIN] Allergy Mild RASH Verified 12/10/20 20:07 ibuprofen Allergy Anaphylaxis Verified 04/21/24 16:34 Review of Systems Review of Systems: Yes all other systems are reviewed and are negative Constitutional: Constitutional: Denies fatigue and Denies fever(s) Cardiovascular: Cardiovascular: Reports chest pain and Denies dyspnea Respiratory: Respiratory: Denies cough and Denies dyspnea Gastrointestinal: Gastrointestinal: Denies abdominal pain, Denies nausea and Denies vomiting Endocrine: Endocrine: Denies fatigue [facility] Past Medical History Attestation statement: The following information was validated with the patient. Medical History History of pulmonary embolism BPH (benign prostatic hyperplasia) Diabetes Obesity Hypothyroid HLD (hyperlipidemia) CAD (coronary artery disease) Surgical History History of coronary artery stent placement Social History Social History Household Members: Unknown / Unable to assess Patient Tobacco Use Status: Never used Tobacco Smoked in Last 30 Days: No Use of substances other than those prescribed or required for medical reasons: No Advance Directives: No Advance Directives Information Provided: Yes Do you have a plan to hurt others: No Plan service: No Current occupational status: unemployed Sexual orientation: Straight/Heterosexual Physical Exam Vital Signs: Vital Signs: Last Vital Signs Temp 98.3 F 04/21/24 18:18 Pulse 87 04/21/24 18:18 Resp 16 04/21/24 18:18 BP 139/69 04/21/24 18:18 Pulse Ox 95 04/21/24 18:18 O2 Del Method Room Air 04/21/24 18:18 BMI result Body Mass Index 37.3 Const: Other: Alert, well-appearing, sitting up in his bed working at his computer Orientation/consciousness: patient oriented x3 Resp: Effort & Inspection: normal respiratory effort Cardio: Other: Normal peripheral perfusion GI: Other: Abdomen is soft nontender nondistended, obese abdomen no guarding Skin: Other: Warm dry no rash Neuro: General: patient oriented x3, no focal motor deficits and CN's II-XI intact bilaterally Psych: Other: Initially cooperative Course Reevaluation(s) Reevaluation #1: I discussed with the patient that his workup is unremarkable thus far, that his cardiac enzyme is negative and that there are no concerning changes on his EKG, he is verbalizing that he is suicidal that he ?just wants to jump off a bridge and ?. I am now initiating a crisis evaluation. Patient states he has many psychosocial stressors, he is worried about his health, as well as other things. Patient did not verbalize this to either myself or his nurse when he arrived. Adding on the serum ethanol, drug screen. Time: 18:57 Medications Administered Discontinued Medications Generic Name Dose Route Start Last Admin Trade Name Freq PRN Reason Stop Dose Admin Morphine Sulfate 2 mg 04/21/24 17:18 04/21/24 17:40 Morphine Sulfate 2 Mg/Ml Cartridge IVPUSH 04/21/24 17:19 2 mg ONCE ONE Administration Protocol Medical Decision Making Medical Decision Making MDM Narrative: 48-year-old male with a history of autism, obesity, hypothyroidism, hyperlipidemia, hypertension, diabetes, CAD, ?6 heart attacks per patient with a 1 cardiac stent ?, prior PE on Xarelto, BPH presents with chest pain since this afternoon. Pain over left anterior chest which radiates to his mid back and left upper extremity. Pain described as pressure that is constant. Denies recent cough or cold symptoms, no fever. Denies abdominal pain nausea or vomiting. Denies diaphoresis or shortness of breath. Problem: Known coronary artery disease, PE, obesity, History: Per patient I have considered the following differential diagnoses: ACS, new PE, chest wall strain, costochondritis, pneumonia, upper abdominal pathology Plan: ACS considered, the patient has known coronary artery disease, screening labs including a cardiac enzymes EKG and chest x-ray we will be obtained. The patient develops anaphylaxis from aspirin and nitroglycerin, we will be giving him low-dose morphine for his discomfort. Thought about PE, the patient was mildly tachycardic on arrival, it was transient, however with the his history I will add a dimer. Thought about costochondritis, however he has not had recent cough or cold symptoms, in the pain is not reproducible with palpation, breathing or movement. Likewise, likely not pneumonia, he is afebrile and has not had a cough. Thought about upper abdominal pathology, gastric versus biliary versus pancreatic etiology as cause for symptoms, however he has no report of abdominal pain his exam was benign he has no active GI symptoms. I have independently reviewed the following tests: Labs: No leukocytosis, not anemic, no electrolyte abnormality, troponin negative at less than 2.7, dimer normal at less than 150, serum ethanol EKG: Sinus rhythm rate of 95, no ischemic changes no ectopy QTC 4-9 Chest x-ray:IMPRESSION: No acute cardiopulmonary process. This document has been electronically signed by: Sabine Mobley DO on 04/21/2024 17:15:38 Lab Data 04/21/24 17:12 04/21/24 17:12 Labs: Lab Results 04/21/24 Range/Units 17:12 WBC 6.1 (4.8-10.8) X10*3/uL RBC 4.34 L (4.60-5.80) X10*6/uL Hgb 11.2 L (14.0-18.0) g/dl Hct 34.7 L (42.0-52.0) % MCV 80.0 (80.0-98.0) fL MCH 25.8 L (27.0-33.0) pg MCHC 32.3 (31.0-36.0) g/dl RDW 15.5 (11.0-16.0) % Plt Count 383 (160-400) X10*3/uL MPV 9.6 (9.4-12.4) fL Immature Gran % (Auto) 0.3 (0.0-0.4) % Neut % (Auto) 60.2 (45-73) % Lymph % (Auto) 28.4 (20-40) % [place] % (Auto) 9.3 (2-11) % Eos % (Auto) 1.5 (0-4) % Baso % (Auto) 0.3 (0-2) % Lymph # (Auto) 1.7 (1.2-4.9) X10*3/uL [place] # (Auto) 0.6 (0.1-1.2) X10*3/uL Eos # (Auto) 0.1 (0.0-0.4) X10*3/uL Baso # (Auto) 0.0 (0.0-0.2) X10*3/uL Abs Immat Gran (auto) 0.02 (0.00-0.03) X10*3/uL Absolute Neuts (auto) 3.7 (2.0-8.3) x10*3/uL Absolute Nucleated RBC 0.000 (0.0-0.012) X10*3/uL Nucleated RBC % (auto) 0.0 (0.0-0.2) /100WBC D-Dimer High Sensitivty < 150 NG/ML Sodium 139 (135-145) mmol/L Potassium 4.1 (3.3-5.1) mmol/L Chloride 112 H (96-108) mmol/L Carbon Dioxide 20 L (22-29) mmol/L Anion Gap 11 L (12-20) BUN 18 H (9-16) mg/dL Creatinine 0.78 (0.5-1.4) mg/dL Estim Creat Clear Calc 150.6 Estimated GFR > 60 Random Glucose 123 H (60-115) mg/dL Calcium 8.8 (8.4-10.2) mg/dL Magnesium 1.9 (1.6-2.6) mg/dL Total Bilirubin 0.2 (0.0-1.0) mg/dL AST 16 (5-37) U/L ALT 18 (0-40) U/L Alkaline Phosphatase 88 (39-117) U/L Troponin I High Sens < 2.7 (<3.5-35.0) ng/L Total Protein 7.1 (6.5-8.0) g/dL Albumin 4.0 (3.5-5.0) g/dL Lipase 30 (8-78) U/L Discharge Plan Discharge Clinical Impression: Chest pain, Suicidal ideation Patient Disposition: Still a Patient Prescriptions: No Action clopidogrel 75 mg Tablet 75 mg PO DAILY Qty: 0 0RF tamsulosin 0.4 mg Capsule 0.4 mg PO DAILY Qty: 0 0RF albuterol sulfate [Ventolin HFA] 90 mcg/actuation Hfa Aerosol Inhaler 2 puff inhalation RQ4H PRN (Reason: sob) Qty: 0 0RF Xarelto 20 mg Tablet 20 mg PO DAILY Qty: 0 0RF atorvastatin 40 mg Tablet 40 mg PO BEDTIME Qty: 0 0RF metoprolol succinate 100 mg Tablet Extended Release 24 Hr 100 mg PO DAILY Qty: 0 0RF Protocol: Hold for SBP/HR < HOLD for SBP < : 90 HOLD for HR < : 60 olanzapine 5 mg Tablet 5 mg PO DAILY Qty: 0 0RF omeprazole 40 mg Capsule,Delayed Release(Dr/Ec) 40 mg PO DAILY@0630 Qty: 0 0RF quetiapine 100 mg Tablet 100 mg PO DAILY Qty: 0 0RF levothyroxine 25 mcg Tablet 25 mcg PO DAILY@0600 Qty: 0 0RF trazodone 100 mg Tablet 200 mg PO BEDTIME Qty: 0 0RF divalproex 500 mg Tablet Extended Release 24 Hr 1,000 mg PO BID Qty: 0 0RF gabapentin 300 mg Capsule 300 mg PO TID Qty: 0 0RF lisinopril 5 mg Tablet 5 mg PO DAILY Qty: 0 0RF Protocol: Hold for SBP< HOLD for SBP < : 90 carbidopa-levodopa 25-100 mg Tablet 1 tab PO BID Qty: 0 0RF quetiapine 400 mg Tablet 400 mg PO BEDTIME Qty: 0 0RF cefuroxime axetil 250 mg tablet 250 mg PO BID 5 Days Qty: 10 0RF azithromycin 250 mg tablet 250 mg PO DAILY 4 Days Qty: 4 0RF Rx Instructions: start on day 2 of therapy Print Language: French
[2024-04-21 17:06] VITALS: RESP 16
[2024-04-21 17:16] LABS: MANUAL DIFF FLAG NO
[2024-04-21 17:23] LABS: Basophils Percent Auto 0.3 % (0-2); Eosinophils Absolute Auto 0.1 X10*3/uL (0.0-0.4); Eosinophils Percent Auto 1.5 % (0-4); Hematocrit 34.7 % (42.0-52.0); Hemoglobin 11.2 g/dl (14.0-18.0); Imm Gran Abs Auto 0.02 X10*3/uL (0.00-0.03); Imm Gran Pct Auto 0.3 % (0.0-0.4); Lymphocytes Absolute Auto 1.7 X10*3/uL (1.2-4.9); Lymphocytes Percent Auto 28.4 % (20-40); Mean Corpuscular HGB Conc 32.3 g/dl (31.0-36.0); Mean Corpuscular Hemoglobin 25.8 pg (27.0-33.0); Mean Platelet Volume 9.6 fL (9.4-12.4); Monocytes Absolute Auto 0.6 X10*3/uL (0.1-1.2); Monocytes Percent Auto 9.3 % (2-11); Neutrophils Absolute Auto 3.7 x10*3/uL (2.0-8.3); Neutrophils Percent Auto 60.2 % (45-73); Platelet Count 383 X10*3/uL (160-400); Red Blood Count 4.34 X10*6/uL (4.60-5.80); Red Cell Distribution Width 15.5 % (11.0-16.0); White Blood Count 6.1 X10*3/uL (4.8-10.8)
[2024-04-21] MEDS: Morphine Sulfate 2 MG/ML CARTRIDGE IVPUSH (17:40)
[2024-04-21 17:42] LABS: D Dimer High Sensitivity < 150 NG/ML
[2024-04-21 17:54] LABS: Troponin-I High Sensitivity < 2.7 ng/L (<3.5-35.0)
[2024-04-21 18:02] LABS: Alanine Aminotransferase 18 U/L (0-40); Alkaline Phosphatase 88 U/L (39-117); Anion Gap 11 (12-20); Aspartate Amino Transferase 16 U/L (5-37); Bilirubin Total 0.2 mg/dL (0.0-1.0); Blood Urea Nitrogen 18 mg/dL (9-16); Calcium 8.8 mg/dL (8.4-10.2); Carbon Dioxide 20 mmol/L (22-29); Chloride 112 mmol/L (96-108); Creatinine Clr Calc Pharmacy 150.6; Estimated Glomerular Filt Rate > 60; Lipase 30 U/L (8-78); Magnesium 1.9 mg/dL (1.6-2.6); Potassium 4.1 mmol/L (3.3-5.1); Sodium 139 mmol/L (135-145); Total Protein 7.1 g/dL (6.5-8.0)
[2024-04-21 18:18] VITALS: BP 139/69; PULSE 87; RESP 16; TEMP 36.8; O2SAT 95
[2024-04-21 18:19] LABS: Glucose Random 123 mg/dL (60-115)
--- NOTE | 2024-04-21 19:24 | PC.NURSE ---
patient states that he wants to end his life, patient states has a plan to jump off a bridge. provider aware and new orders obtained. IV to right upper arm removed, patient changed over into POD safe clothing, security checking belongings. pt assisted to the POD.
--- NOTE | 2024-04-21 19:25 | PC.NURSE ---
patient transitioned to pod, asks for food, multiple bags of belongings in closet.
[2024-04-21 19:40] LABS: Ethanol < 10 mg/dL
--- OUTSIDE RECORDS SUMMARY | 2024-04-21 19:52 | XMS_ITS | Continuity of Care Document ---
Author Organization [facility] Address [address] [place] [address] Phone Care Team Providers Care Slag Mixer Name Role Phone Tommie Thakkar MD Unavailable [...] Providers Copied on Encounter INITIAL HOSPITAL CARE [facility], [address] [facility], [place], [id number] , [place] tel:[phone] [facility] In Patient No Information 3 Bijan Reilly. [address] [facility], [address], [place], [address], [place]. tel:[phone] Referring Provider: Sohail Bustillo, [address] [facility], [place], [address] . tel:[phone] SUBSEQUENT [facility], [address], [place], [place], [id number] , [place] tel: [phone] [facility] In Patient Unstable anginaOld myocardial infarctionChronic obstructive pulmonary disease, unspecifiedAcute on chronic systolic (congestive) heart failurePersonal history of other mental and behavioral disordersSuicidal ideationsCOVID-19 3 [address]ust[address]ail. [address], [place], [place], [id number] , [place]. tel: SUBSEQUENT HOSPITAL [facility], [address], [place], [place], [id number] , [place] tel: [phone] [facility] In Patient Unstable anginaOld myocardial infarctionChronic obstructive pulmonary disease, unspecifiedAcute on chronic systolic (congestive) heart failurePersonal history of other mental and behavioral disordersSuicidal ideationsCOVID- 3 Bust[address]ail. [address], [place], [place], [id number] , [place]. tel:[phone] INITIAL HOSPITAL CARE [facility], [address], [place], [place], [id number] , [place] tel: [phone] [facility] In Patient Unstable anginaOld myocardial infarctionChronic obstructive pulmonary disease, unspecifiedPresence of cardiac and vascular implant and graft, unspecified [address]. [address], [place], [place], [id number] , [place]. tel:[phone] SUBSEQUENT [facility], [address], [place], [place], [id number] , [place] tel: [phone] [facility] In Patient Unstable anginaOld myocardial infarctionChronic obstructive pulmonary disease, unspecifiedAcute on chronic systolic (congestive) heart failurePersonal history of other mental and behavioral disordersSuicidal ideationsCOVID-19 [address], [place], [place], [id number] , [place]. tel:[phone] HOSPITAL DISCHARGE DAY [facility], [address], [place], [id number] , [place] tel: [phone] [facility] In Patient Chronic obstructive pulmonary disease with (acute) exacerbationAcute on chronic combined systolic (congestive) and diastolic (congestive) heart failurePersonal history of other mental and behavioral disordersSuicidal ideations 3 Bustillo Sohail. [address] [place], [id number] , [place]. tel: [phone] SUBSEQUENT [facility], [address] [place], [id number] , [place] tel: [phone] [facility] In Patient Unstable anginaOld myocardial infarctionChronic obstructive pulmonary disease, unspecifiedCoronary angioplasty statusAcute on chronic combined systolic (congestive) and diastolic (congestive) heart failurePersonal history of other mental and behavioral disordersCOVID-19Sui cidal ideations 3 Bustillo Sohail. [address] [place], [id number] , [place]. tel: SUBSEQUENT [facility], [address], [place], [id number] , [place] tel: [phone] [facility] In Patient Unstable anginaOld myocardial infarctionChronic obstructive pulmonary disease, unspecifiedAcute on chronic systolic (congestive) heart failurePersonal history of other mental and behavioral disordersSuicidal ideationsCOVID-19 3 Bustillo Sohail. [address] [place], [id number] , [place]. tel:[phone] SUBSEQUENT [facility], [address], [place], [id number] , [place] tel: [phone] [facility] In Patient Unstable anginaOld myocardial infarctionChronic obstructive pulmonary disease with (acute) exacerbationAcute on chronic combined systolic (congestive) and diastolic (congestive) heart failurePersonal history of other mental and behavioral disordersSuicidal ideations [address], [place], [place], [id number] , [place]. tel: [phone] SUBSEQUENT [facility], [address], [place], [place], [id number] , [place] tel: [phone] [facility] In Patient Unstable anginaOld myocardial infarctionChronic obstructive pulmonary disease, unspecifiedCoronary angioplasty statusAcute on chronic combined systolic (congestive) and diastolic (congestive) heart failure [address], [place], [place], [id number] , [place]. tel: [phone] SUBSEQUENT [facility], [address], [place], [place], [id number] , [place] tel: [phone] [facility] In Patient Unstable anginaOld myocardial infarctionChronic obstructive pulmonary disease with (acute) exacerbationAcute on chronic combined systolic (congestive) and diastolic (congestive) heart failurePersonal history of other mental and behavioral disordersSuicidal ideations [address], [place], [place], [id number] , [place]. tel: SUBSEQUENT [facility], [address], [place], [place], [id number] , [place] tel: [phone] [facility] In Patient Unstable anginaOld myocardial infarctionChronic obstructive pulmonary disease, unspecifiedAcute on chronic systolic (congestive) heart failurePersonal history of other mental and behavioral disordersSuicidal ideationsCOVID- 3 Bustillo Sohail. [address], [place], [id number] , [place]. tel: [phone] SUBSEQUENT [facility], [address], [place], [id number] , [place] tel: [phone] [facility] In Patient Unstable anginaOld myocardial infarctionChronic obstructive pulmonary disease, unspecifiedAcute on chronic systolic (congestive) heart failurePersonal history of other mental and behavioral disordersSuicidal ideationsCOVID- [address], [place], [place], [id number] , [place]. tel: [phone] SUBSEQUENT [facility], [address], [place], [place], [id number] , [place] tel: [phone] [facility] In Patient Unstable anginaOld myocardial infarctionChronic obstructive pulmonary disease, unspecifiedCoronary angioplasty statusAcute on chronic combined systolic (congestive) and diastolic (congestive) heart failurePersonal history of other mental and behavioral disordersCOVID- 3 Bustillo Sohail. [address] [place], [id number] , [place]. tel: [phone] SUBSEQUENT HOSPITAL CARE [facility], [address] [place], [id number] , [place] tel: [phone] [facility] In Patient Chronic obstructive pulmonary disease with (acute) exacerbationAcute on chronic combined systolic (congestive) and diastolic (congestive) heart failurePersonal history of other mental and behavioral disordersSuicidal ideations 3 Bustillo Sohail. [address] [place], [id number] , [place]. tel: [phone] SUBSEQUENT HOSPITAL CARE [facility], [address] [place], [id number] , [place] tel: [phone] [facility] In Patient Unstable anginaOld myocardial infarctionChronic obstructive pulmonary disease, unspecifiedAcute on chronic systolic (congestive) heart failurePersonal history of other mental and behavioral disordersSuicidal ideationsCOVID- 3 Bustillo Sohail. [address], [place], [id number] , [place]. tel: [phone] SUBSEQUENT HOSPITAL CARE [facility], [address] [place], [id number] , [place] tel: [phone] [facility] In Patient Unstable anginaOld myocardial infarctionChronic obstructive pulmonary disease, unspecifiedAcute on chronic systolic (congestive) heart failurePersonal history of other mental and behavioral disordersSuicidal ideationsCOVID- 3 Bustillo Sohail. [address], [place], [id number] , [place]. tel: [phone] Family History Family Member Type Diagnosis Age At Onset No Information Payers Payer name Insurance type Covered constitution party ID Gayathri pruitt(s) [facility] [id number] Formerly [facility] Med[employer] IPA [id number] Social History Type Description Quantity Date [...]
[2024-04-21 20:26] LABS: Amphetamine Screen Urine Not Detected (Not Detect); Barbiturates, Urine Not Detected (Not Detect); Benzodiazepines Screen Urine Not Detected (Not Detect); Buprenorphine Scr Not Detected (Not Detect); Cannabinoid Screen Urine Not Detected (Not Detect); Cocaine Screen Urine Not Detected (Not Detect); Fentanyl, urine Not Detected (Not Detect); Methadone Screen, Urine Not Detected (Not Detect); Opiate Screen Urine POSITIVE (Not Detect); Oxycodone Screen Urine Not Detected (Not Detect); Phencyclidine Screen Urine Not Detected (Not Detect)
--- NOTE | 2024-04-21 23:15 | PC.NURSE ---
late entry: assumed care of pt at 2300. Belongings list not completed prior to pt being moved into pod. Inventoried by CLASEMOVIL Margareth and security.
[2024-04-21 23:47] VITALS: BP 144/94; PULSE 85; RESP 18; TEMP 37; O2SAT 96
--- NOTE | 2024-04-22 | ECG_ITS ---
Test Reason : chest pain Blood Pressure : */* mmHG Vent. Rate : 83 BPM Atrial Rate : 83 BPM P-R Int : 180 ms QRS Dur : 100 ms QT Int : 368 ms P-R-T Axes : 46 32 43 degrees QTcB Int : 432 ms Normal sinus rhythm Normal ECG When compared with ECG of 21-Apr-2024 16:35, No significant change was found Referred By: Pedro Guardado Electronically Signed By: Xander Pavon
[2024-04-22] MEDS: Atorvastatin Calcium 40 MG TABLET PO ×2 (01:04→22:19)
[2024-04-22] MEDS: traZODone HCL 100 MG TABLET PO ×2 (01:04→22:17)
[2024-04-22] MEDS: QUEtiapine Fumarate 400 MG TABLET PO ×2 (01:04→22:19)
[2024-04-22] MEDS: Carbidopa/Levodopa 25/100 TABLET 1 TAB PO ×4 (01:05→22:18)
[2024-04-22 01:06] VITALS: BP 130/79; PULSE 80
[2024-04-22] MEDS: Metoprolol Tartrate 25 MG TABLET PO ×3 (01:06→22:17)
[2024-04-22 01:07] VITALS: BP 130/79; PULSE 80; RESP 18; TEMP 36.8; O2SAT 96
[2024-04-22 08:27] VITALS: BP 132/82; PULSE 92; RESP 16; TEMP 37.2; O2SAT 94
[2024-04-22] MEDS: Sertraline HCL 100 MG TABLET PO (08:33)
[2024-04-22] MEDS: metFORMIN HCl 500 MG TABLET PO ×2 (08:33→18:43)
[2024-04-22] MEDS: QUEtiapine Fumarate 100 MG TABLET PO (08:33)
[2024-04-22] MEDS: Clopidogrel Bisulfate 75 MG TABLET PO (08:45)
[2024-04-22] MEDS: Lacosamide 100 MG TABLET PO ×2 (08:45→22:18)
--- NOTE | 2024-04-22 09:59 | MHC.CARE ---
Pt seen by CARE team and will be inpatient level of care, bed search in process.
[2024-04-22 15:15] VITALS: BMI 37.8
[2024-04-22 15:17] VITALS: BP 127/73; PULSE 83; RESP 18; TEMP 36.1; O2SAT 97
[2024-04-22] MEDS: Tiotropium Bromide 2.5 mcg 1 PUFF/2.5 MCG MIST.INHAL 2 PUFF INHALE (15:18)
--- NOTE | 2024-04-22 17:57 | PC.ADMIT ---
Charlie Vargas) is a 48 year old man who was admitted to at 1512 from the pod on a CV for chest pain and SI. He is polite and cooperative throughout the admission process. He originally presented to the ED for 10/10 chest pain radiating down his left arm. His EKG, troponins, D-Dimer and chest x-ray were normal in our ED. He had previously been seen at [facility] but was released after it was shown that there was no KS. Upon admission to he continues to complain of severe chest pain. Vitals are stable. EKG and trops repeated. After being cleared for KS in the ED he stated that he plans to jump off a tall building. His medical history includes 6 heart attacks, all N-STEMI, one cardiac catheterization and one stent. He also states a history of neurofibromatosis, seizures, diabetes, and asthma. Skin check was unremarkable. Enoc denies all substance use. His tox screen was positive for opiates only, but he had received morphine in the ED prior to being drug tested. He denies having a primary care doctor, psychiatrist, or therapist, but does have DDS services for autism. 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 He has already had a flu shot this year. He is a non-smoker.
[2024-04-22] MEDS: Rivaroxaban 20 MG TABLET PO (18:43)
[2024-04-22 19:25] LABS: Troponin-I High Sensitivity < 2.7 ng/L (<3.5-35.0)
[2024-04-22 20:00] VITALS: BP 141/72; PULSE 102; RESP 16; TEMP 36.6; O2SAT 98
--- NOTE | 2024-04-23 | ECG_ITS ---
Test Reason : chest pain Blood Pressure : */* mmHG Vent. Rate : 80 BPM Atrial Rate : 80 BPM P-R Int : 178 ms QRS Dur : 100 ms QT Int : 368 ms P-R-T Axes : 49 33 42 degrees QTcB Int : 424 ms Normal sinus rhythm Normal ECG When compared with ECG of 22-Apr-2024 17:40, No significant change was found Referred By: Coretta Moreira Electronically Signed By: Xander Pavon
[2024-04-23 08:00] VITALS: BP 148/74; PULSE 91; RESP 16; TEMP 36.4; O2SAT 98
[2024-04-23 08:50] LABS: Estimated Average Glucose 134 mg/dL; Hemoglobin A1C 129.2515 umol/L; Hemoglobin A1c % 6.3 % (<6.0); Total Hemoglobin (HGBA1C) 2860.3045 umol/L
[2024-04-23] MEDS: Carbidopa/Levodopa 25/100 TABLET 1 TAB PO ×3 (08:51→21:35)
[2024-04-23 08:52] VITALS: BP 148/74; PULSE 91
[2024-04-23] MEDS: Sertraline HCL 100 MG TABLET PO (08:52)
[2024-04-23] MEDS: Clopidogrel Bisulfate 75 MG TABLET PO (08:52)
[2024-04-23] MEDS: metFORMIN HCl 500 MG TABLET PO (08:52)
[2024-04-23] MEDS: QUEtiapine Fumarate 100 MG TABLET PO ×2 (08:52→14:23)
[2024-04-23] MEDS: Lacosamide 100 MG TABLET PO ×2 (08:52→21:36)
[2024-04-23] MEDS: Metoprolol Tartrate 25 MG TABLET PO ×2 (08:52→21:36)
[2024-04-23] MEDS: Tiotropium Bromide 2.5 mcg 1 PUFF/2.5 MCG MIST.INHAL 2 PUFF INHALE (08:55)
[2024-04-23 08:56] LABS: Cholesterol 101 mg/dL (<200); HDL Cholesterol 32 mg/dL (>40); LDL Cholesterol Calculated 50 mg/dL (<100); Triglycerides 95 mg/dL (<150)
[2024-04-23 09:13] LABS: Free T4 (Free Thyroxine) 0.83 ng/dL (0.71-1.85); Thyroid Stimulating Hormone 2.03 uIU/mL (0.32-4.0)
[2024-04-23 09:26] LABS: Folate 13.3 ng/mL (> or = 4.0); Vitamin B12 430 pg/mL (200-900)
[2024-04-23] MEDS: Cyclobenzaprine HCl 5 MG TABLET PO ×2 (12:08→17:05)
[2024-04-23 14:20] VITALS: BP 132/67; PULSE 76; RESP 16; O2SAT 98
--- NOTE | 2024-04-23 15:25 | PC.NURSE ---
Addendum entered by Scarlet Gleason RN 04/23/24 19:45: 1650 late entry-Enoc is complaining of worsening pain again, Its so bad I am having trouble breathing , he is not having any visible respiratory distress or color change, his vital signs were wnl-142/82, O2 sat 97%. He continues to engage with peers and drink his diet coke, meanwhile saying 'I'm telling you, you need to call an HOG SLAUGHTERER! . Dr Alejandre (chronometer assembler and adjuster hospitalist) came to see patient as ordered. Original Note: 1420 this nurse was called to group room as Enoc was complaining of 10/10 bilateral arm and chest pain. His color was wnl, skin warm and dry, vitals 132/67 HR 76 O2 sat 98. Chato Moreira TAX SPECIALIST aware. Orders placed for ekg and labs. Vitals at 1430 129/74, HR 86 O2 97%. EKG and labs done. Enoc has been in the kitchen, no visible physical distress observed. Drinking diet coke.
[2024-04-23 15:45] LABS: Troponin-I High Sensitivity < 2.7 ng/L (<3.5-35.0)
[2024-04-23] MEDS: LORazepam 1 MG TABLET PO ×2 (17:05→21:37)
[2024-04-23] MEDS: Rivaroxaban 20 MG TABLET PO (17:05)
[2024-04-23 17:13] LABS: Glucose, Whole Blood 211 mg/dL (60-115)
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
[2024-04-23 20:00] VITALS: BP 155/82; PULSE 108; RESP 18; TEMP 36.1; O2SAT 97
[2024-04-23 21:13] LABS: Glucose, Whole Blood 118 mg/dL (60-115)
[2024-04-23] MEDS: Atorvastatin Calcium 40 MG TABLET PO (21:35)
[2024-04-23] MEDS: Melatonin 3 MG TABLET PO (21:36)
[2024-04-23] MEDS: QUEtiapine Fumarate 100 MG TABLET 500 MG PO (21:36)
[2024-04-23] MEDS: Tamsulosin HCL 0.4 MG CAPSULE PO (21:37)
[2024-04-23] MEDS: hydrOXYzine HCL 25 MG TABLET PO (21:40)
--- NOTE | 2024-04-23 22:56 | P.EN_ITS ---
Event Note Date of Service: 04/23/24 Event Note: Pt is a 48-year-old male w/a PMH significant for autism, hypothyroidism, hyperlipidemia, HTN, [id number] type 2 diabetes, prior PE on Xarelto, and a self-reported 6 prior heart attacks w/cardiac stenting who was [facility] for increasing depression w/ SI. Hospitalist consult for chest pain. Pt reports he has 10/10 chest pain radiating to left arm, back, and left jaw. Reports this is worse chest pain than he has ever experienced prior. Also reports nausea and vomiting blood w/ clots 2 hours prior, as well as lightheadedness, dizziness, shortness a breath, difficulty breathing, and diaphoresis. Reports also fainted twice in his room on his bed w/ each episode lasting approximately 10 seconds or so. Pt has had 3 negative troponins drawn on consecutive days, 04/21-04/23. EKG is on 04/21, 04/22, and again today all showing normal sinus rhythm without any significant ischemic changes. Review of records indicates pt has a long hx of presenting to various different EDs and multiple hospitalizations w/ similar complaints. Of note, [place] [facility] [place]18[place] stating sudden onset of acute chest pain. Pt reports that he has been traveling on [place] for the past week coming [facility] and stated not been taking any of his home medications. [place] [facility] [place] serial troponins and EKG without ischemic changes. Suspicion at that time was that pt was exhibiting drug-seeking behavior, as clinician indicated pt immediately asked for morphine after he entered the room. Pt off reported he is allergic to nitroglycerin, aspirin, as well as other typical ACS medications. Patient's PMH claims 6 prior MIs and a hx of prior cardiac catheterizations w/ stenting has not been verified from previous medical records. Pt reports has never had either elevated troponins or EKG changes w/ any of his previous MIs, which would argue against a diagnosis of MD. pt states had cardiac catheterization at [facility] in 1999 w/ stenting and another PCI without stenting 6 months later. Pt would be 24 years of age at that time, which makes CAD unlikely, especially if pt did not have elevated troponins or EKG changes. Would suggest contacting [facility] to see if any medical records can be faxed over concerning patient's possible myocardial infarctions and/or cardiac catheterization w/ possible stenting. Despite complaining of 10/1o pain worse than ever before, pt is observed to be ambulating and interacting on the unit without apparent discomfort, including eating his meal and playing cards w/ others. Given negative workup and reassuring clinical picture, ACS or acute cardiac event unlikely at this time. Symptoms possibly psychogenic. Would suggest conservative treatment as well as treatment for mood disorder. Thank you for allowing us to participate in the care of this pt. Will sign off for now. Please re-consult if any acute issue or need arises. Time Spent With Patient Time: Total time managing care of this patient today ____ minutes.
[2024-04-24] MEDS: Levothyroxine Sodium 25 MCG TABLET PO (06:32)
[2024-04-24 07:00] VITALS: BMI 38.4
[2024-04-24 08:40] LABS: Glucose, Whole Blood 185 mg/dL (60-115)
[2024-04-24 08:53] VITALS: BP 120/81; PULSE 118; RESP 16; TEMP 36.1; O2SAT 95
[2024-04-24] MEDS: QUEtiapine Fumarate 100 MG TABLET PO ×2 (08:56→12:43)
[2024-04-24] MEDS: metFORMIN HCl 500 MG TABLET PO ×2 (08:56→16:05)
[2024-04-24] MEDS: Furosemide 20 MG TABLET PO (08:56)
[2024-04-24] MEDS: Lacosamide 100 MG TABLET PO ×2 (08:56→20:22)
[2024-04-24] MEDS: Metoprolol Tartrate 25 MG TABLET PO ×2 (08:56→20:27)
[2024-04-24] MEDS: Carbidopa/Levodopa 25/100 TABLET 1 TAB PO ×3 (08:56→20:28)
[2024-04-24] MEDS: Sertraline HCL 100 MG TABLET PO (08:56)
[2024-04-24] MEDS: Clopidogrel Bisulfate 75 MG TABLET PO (08:56)
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
[2024-04-24 12:41] LABS: D Dimer High Sensitivity < 150 NG/ML
[2024-04-24] MEDS: LORazepam 1 MG TABLET PO (12:43)
[2024-04-24 12:47] VITALS: BP 145/77; PULSE 90; RESP 18; O2SAT 94
[2024-04-24 14:02] VITALS: BP 162/83; PULSE 120; RESP 18; O2SAT 95
--- NOTE | 2024-04-24 14:06 | PC.NURSE ---
Addendum entered by [place] Kay RN 04/24/24 14:39: Pt refused ECHO. Ship'S Officer and NUMERICAL CONTROL LATHE OPERATOR aware. Original Note: Pt continues to report on-going chest pain. Vital signs stable. No other symptoms reported. Ship'S Officer on unit to assess patient. CP noncardiac in origin per Ship'S Officer Dr. Pavon. D dimer obtained which was negative. Pt transported off unit for ECHO; results pending. Pt given an Ativan for anxiety. Md notified. Last EKG was completed on 04/22. No new orders. Will continue to monitor.
[2024-04-24] MEDS: Rivaroxaban 20 MG TABLET PO (16:05)
[2024-04-24 16:53] LABS: Glucose, Whole Blood 143 mg/dL (60-115)
--- NOTE | 2024-04-24 18:25 | HO.PSYCHPN ---
Subjective Subjective Date of Service: 04/24/24 Reason For Visit: Suicidal ideation, CP Subjective Notes: Conditional Voluntary Healthcare Proxy: No Guardianship: No Medical Problems Affecting Mental Status: No Interim History: Reports depressive/anxious sx 08/16. 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 Chronic chest pain 01/16. Seen by cardiology, echocardiogram ordered. Pt refused. Discussed with pt that this would be a good exam to complete as he would have an improved idea of issues if they are found. Pt agreed, We will schedule for 04/25. Tolerating medication changes made on admission. Pt is seen as social, conflicted with some peers with resulting distress and with poor boundaries. Medication Compliance: Yes Side effects from medications: No Attending Groups: Intermittent Review of Systems per consultations not at this time. Review of Systems Review of Systems reports persistant chest pain, 01/16. diagnostics are negative currently Mental Status Exam Mental Status Exam Patient Appearance: Appropriate Patient Orientation: Person, Place, Time and Situation Level of Consciousness: Alert Patient Behavior: Talkative, Self Manipulative, Restless, Anxious, Fearful, Resistive to Care, Distractible and Good Eye Contact Mood Description: Constricted, Anxious, Nervous and Apprehensive Affect Description: Anxious, Nervous and Apprehensive Patient Cognition Impaired: No Ability to Follow Directions: Good Speech Pattern: Spontaneous Speech Memory Description: Remote Impaired and Episodic Impaired Hallucinations: None Delusions: Present Thought Process: Illogical, Distracted, Rumination and Evasive Thought Content: positive for Perseveration Depressive Symptoms: Increased Anxiety and Increased Irritability Abnormal Motor Activity Signs and Symptoms: Restlessness Judgement: Fair Diagnostics Vital Signs (24Hr): Vital Signs - 24 hr 04/23/24 20:00 04/24/24 08:53 04/24/24 12:47 Temperature 97 F 97.0 F Pulse Rate 108 H 118 H 90 Respiratory Rate 18 16 18 Blood Pressure 155/82 H 120/81 145/77 H Pulse Oximetry 97 95 94 Oxygen Delivery Method Room Air Room Air Room Air 04/24/24 14:02 Temperature Pulse Rate 120 H Respiratory Rate 18 Blood Pressure 162/83 H Pulse Oximetry 95 Oxygen Delivery Method Room Air BMI result Body Mass Index 38.4 Labs 04/21/24 17:12 04/21/24 17:12 Labs: Laboratory Results - last 48 hr 04/22/24 04/23/24 04/23/24 18:04 07:40 15:14 D-Dimer High Sensitivty POC Glucose Estimat Average Glucose 134 Hemoglobin A1c % 6.3 H Magnesium 2.0 Troponin I High Sens < 2.7 < 2.7 Triglycerides 95 Cholesterol 101 LDL Cholesterol, Calc 50 HDL Cholesterol 32 L Vitamin B12 430 Folate 13.3 TSH 2.03 Free T4 0.83 04/23/24 04/23/24 04/24/24 17:10 21:10 08:30 D-Dimer High Sensitivty POC Glucose 211 H 118 H 185 H Estimat Average Glucose Hemoglobin A1c % Magnesium Troponin I High Sens Triglycerides Cholesterol LDL Cholesterol, Calc HDL Cholesterol Vitamin B12 Folate TSH Free T4 04/24/24 04/24/24 12:24 16:50 D-Dimer High Sensitivty < 150 POC Glucose 143 H Estimat Average Glucose Hemoglobin A1c % Magnesium Troponin I High Sens Triglycerides Cholesterol LDL Cholesterol, Calc HDL Cholesterol Vitamin B12 Folate TSH Free T4 Medications Medications Current Medications Al Hydroxide/Mg Hydroxide (Magnesium Hydrox/Alum Hydrox 30 Ml Oral.Susp) 30 ml PO Q6H PRN PRN Reason: Heartburn/Nausea Albuterol Sulfate (Albuterol Sulfate 90 Mcg 8 Gm Inhaler) 2 puff INHALE RQ4H PRN PRN Reason: sob Atorvastatin Calcium (Atorvastatin Calcium 40 Mg Tablet) 40 mg PO BEDTIME [facility] Last Admin: 04/23/24 21:35 Dose: 40 mg Capsaicin (Capsaicin 0.025% Cream 60 Gm Tube) 1 appl TOPICAL QID PRN; Protocol PRN Reason: back pain Carbidopa/Levodopa (Carbidopa/Levodopa 25/100 Tablet) 1 tab PO TID [facility] Last Admin: 04/24/24 14:49 Dose: 1 tab Clopidogrel Bisulfate (Clopidogrel Bisulfate 75 Mg Tablet) 75 mg PO DAILY [facility] Last Admin: 04/24/24 08:56 Dose: 75 mg Cyclobenzaprine HCl (Cyclobenzaprine Hcl 5 Mg Tablet) 5 mg PO TID PRN PRN Reason: spasm Last Admin: 04/23/24 17:05 Dose: 5 mg Furosemide (Furosemide 20 Mg Tablet) 20 mg PO DAILY [facility]; Protocol Last Admin: 04/24/24 08:56 Dose: 20 mg Hydroxyzine HCl (Hydroxyzine Hcl 25 Mg Tablet) 25 mg PO Q6H PRN PRN Reason: Anxiety Last Admin: 04/23/24 21:40 Dose: 25 mg Lacosamide (Lacosamide 100 Mg Tablet) 100 mg PO BID [facility] Last Admin: 04/24/24 08:56 Dose: 100 mg Levothyroxine Sodium (Levothyroxine Sodium 25 Mcg Tablet) 25 mcg PO DAILY@0600 [facility] Last Admin: 04/24/24 06:32 Dose: 25 mcg Lidocaine (Lidocaine 4 % Patch Adh..Patch) 1 patch TRANSDERMA DAILY [facility]; Protocol Last Admin: 04/24/24 08:59 Dose: Not Given Lorazepam (Lorazepam 1 Mg Tablet) 1 mg PO Q4H PRN PRN Reason: Anxiety Last Admin: 04/24/24 12:43 Dose: 1 mg Magnesium Hydroxide (Milk Of Magnesia 30 Ml Oral.Susp) 30 ml PO DAILY PRN PRN Reason: Constipation Melatonin (Melatonin 3 Mg Tablet) 3 mg PO BEDTIME [facility] Last Admin: 04/23/24 21:36 Dose: 3 mg Metformin HCl (Metformin Hcl 500 Mg Tablet) 500 mg PO BID@0800,1700 [facility] Last Admin: 04/24/24 16:05 Dose: 500 mg Metoprolol Tartrate (Metoprolol Tartrate 25 Mg Tablet) 25 mg PO BID [facility]; Protocol Last Admin: 04/24/24 08:56 Dose: 25 mg Quetiapine Fumarate (Quetiapine Fumarate 100 Mg Tablet) 500 mg PO BEDTIME [facility] Last Admin: 04/23/24 21:36 Dose: 500 mg Quetiapine Fumarate (Quetiapine Fumarate 100 Mg Tablet) 100 mg PO 0900,1400 [facility] Last Admin: 04/24/24 12:43 Dose: 100 mg Rivaroxaban (Rivaroxaban 20 Mg Tablet) 20 mg PO DAILY@1700 [facility] Last Admin: 04/24/24 16:05 Dose: 20 mg Sertraline HCl (Sertraline Hcl 100 Mg Tablet) 100 mg PO DAILY [facility] Last Admin: 04/24/24 08:56 Dose: 100 mg Tamsulosin HCl (Tamsulosin Hcl 0.4 Mg Capsule) 0.4 mg PO BEDTIME [facility] Last Admin: 04/23/24 21:37 Dose: 0.4 mg Tiotropium [place] (Tiotropium [place] 2.5 Mcg 1 Puff/2.5 Mcg Mist.Inhal) 2 puff INHALE DAILY [facility] Last Admin: 04/24/24 09:00 Dose: Not Given Allergies Allergies Allergy/AdvReac Type Severity Reaction Status Date / Time acetaminophen [From TYLENOL] Allergy Severe ANAPHYLAXIS Verified 12/10/20 20:07 aspirin [ASA] Allergy Severe ANAPHYLAXIS Verified 12/10/20 20:07 nitroglycerin [NITROGLYCERIN] Allergy Severe ANAPHYLAXIS Verified 12/10/20 20:07 amoxicillin [AMOXICILLIN] Allergy Mild RASH Verified 12/10/20 20:07 fish derived [fish] Allergy Anaphylaxis Verified 04/22/24 11:04 ibuprofen Allergy Anaphylaxis Verified 04/21/24 16:34 Poultry Allergy Anaphylaxis Verified 04/22/24 11:04 Assessment & Plan Assessment & Plan (1) PTSD (post-traumatic stress disorder): Status: Acute Code(s): F43.10 - Post-traumatic stress disorder, unspecified (2) Depression: Status: Acute Code(s): F32.A - Depression, unspecified (3) Autism: Status: Acute Code(s): F84.0 - Autistic disorder (4) Suicidal ideation: Status: Acute Code(s): R45.851 - Suicidal ideations Plan 48-year-old gentleman with background history of PTSD, autism and suicidal ideation who presented with suicide ideation and is currently in inpatient psychiatry. He is reporting cardiovascular history with no reports or objective data available currently. He is on medicines including Xarelto for PE which was diagnosed 5 years ago in another hospital. He reports previous stents 25 year ago in the right coronary artery. He is on Plavix. His chest pain history is noncardiac in origin. I have reassured him that chest pain is not due to coronary disease. The pain is not pleuritic in nature. He is saying he missed his Xarelto for few weeks and I think it would be worth checking a D-dimer level. Recommend echocardiogram to assess LV/RV function. Overall clinical story is quite atypical and I have explained this to Mr. Rios in detail. Please try getting records from [facility]. Thank you for allowing me to participate in the care of your patient. Please feel free to contact me if you have any questions. 04/24/24: Continue current plan. Patient educated on: therapeutic strategies Reason for continued inpatient stay Substantial Risk for: rapid decompensation and med/psych decompensation Time Spent With Patient Time: Total time managing care of this patient today ____ minutes.
[2024-04-24 20:00] VITALS: BP 148/75; PULSE 113; TEMP 36.2; O2SAT 97
[2024-04-24] MEDS: Atorvastatin Calcium 40 MG TABLET PO (20:22)
[2024-04-24 20:27] VITALS: BP 148/75; PULSE 113
[2024-04-24] MEDS: Tamsulosin HCL 0.4 MG CAPSULE PO (20:28)
[2024-04-24] MEDS: Melatonin 3 MG TABLET PO (20:29)
[2024-04-24] MEDS: QUEtiapine Fumarate 100 MG TABLET 500 MG PO (20:29)
[2024-04-24 22:00] VITALS: PULSE 69; RESP 16; O2SAT 94
[2024-04-24 23:32] LABS: Glucose, Whole Blood 110 mg/dL (60-115)
--- NOTE | 2024-04-25 07:00 | CA_ITS ---
Transthoracic Echocardiogram Patient (Last, First, Middle): Charlie Rios, Gender: Male Date of : 1975 Age: 48 Procedure Date: 04/25/2024 Procedure Type: Transthoracic Echocardiogram Location: [facility] Height: 177.8 cm Weight: 121.11 kg BSA: 2.36 m2 Heart Rate: 92 bpm BP: 145 / 77 mmHg [employer] Intern: SB Referring MD: Xander Pavon MD Symptoms: chest pain Study Quality: Fair ECG Rhythm: Sinus Conclusions: - Normal left ventricular size, thickness, systolic function, and wall motion. The visually estimated ejection fraction is between 60-65%. Diastolic function is indeterminate on the basis of available data. - Normal right ventricular cavity size. There is low normal right ventricular systolic function. - In some views pseudodyskinesis is noted which is seen usually with large hiatal hernia. Hiatal hernia can be potential reason for pressure like feeling in the patient's chest. Findings Procedure Information The patient declines contrast. Left Ventricle Normal left ventricular size, thickness, systolic function, and wall motion. The visually estimated ejection fraction is between 60-65%. Diastolic function is indeterminate on the basis of available data. Right Ventricle Normal right ventricular cavity size. There is low normal right ventricular systolic function. Atria The left atrium is normal in size. Aortic Valve The aortic valve structure and function is likely normal. There is mild calcification of the aortic valve. There is no aortic valve stenosis. There is no aortic valve regurgitation. Mitral Valve Normal mitral valve structure and function. There is no mitral valve regurgitation. There is no mitral valve stenosis. Pulmonic Valve The pulmonic valve is likely normal. Tricuspid Valve Likely normal tricuspid valve structure and function. Tricuspid regurgitation envelope is inadequate for calculation of right ventricular systolic pressure. Normal right atrial pressure. Great Vessels All visible segments of the aorta are normal in size. The visualized portions of the pulmonary artery and branches are normal. Venous The inferior vena cava is normal in size and collapses greater than 50% with inspiration. Pericardium/Pleural There is no evidence of pericardial effusion. Prior Study Comparison No prior study available for comparison. Measurements 2D Linear Measurements IVSd: 1.14 0.6-0.9/0.6-1.0 cm LVIDd: 4.15 3.9-5.3/4.2-5.9 cm LVIDd Index: 1.76 2.4-3.2/2.2-3.1 cm/m2 LVIDs: 2.83 2.0-3.6 cm LVPWd: 0.89 0.7-1.1 cm LA Diam: 3.60 2.7-3.8/3.0-4.0 cm LAIDs Index: 1.53 1.5-2.3 cm/m2 LV Mass: 171.14 67-162/88-224 g LV Mass Index: 72.52 43-95/49-115 g/m2 LVOT Diam: 2.30 3.0+(-)1.3 cm 2D Systolic Function EF 4C: 55.80 >55% EF 2C: 57.30 >55% EF BiP: 57.40 >55% Mitral Valve MV Pk E: 0.96 MV PK A: 1.23 MV Decel Time: 95.00 E/A: 0.80 E'Lateral: 5.98 E'Medial: 7.40 E/E' Med: 13.00 E/E' Lat: 16.10 PHT: 28.00 MVA PHT: 7.86 Decel Sherman: 10.05 Aortic Valve AoV Pk Chay: 1.31 AoV Pk Grad: 7.00 BENNY: 4.07 LVOT LVOT Pk Chay: 1.31 LVOT Mn Chay: 0.97 LVOT VTI: 0.26 LVOT Pk Grad: 7.00 LVOT Mn Grad: 4.00 LVOT Diam: 2.30 LVOT Area: 4.15 Diastolic Function MV Pk E: 0.96 MV Pk A: 1.23 E/A: 0.80 E'Medial: 7.40 E/E' Med: 13.00 E' Laterial: 5.98 E/E' Lat: 16.10 Right Ventricle TAPSE (mm): 12.20 TVS' Chay: 7.51 Tricuspid Valve RA Press: 3.00 Great Vessels Aorta Sinus of Valsalva: 3.00 2.0-3.5 cm Ao Asc: 3.10 2.1-3.4 cm Pulmonary Veins Pulm Vein S/D 1.70 Pulmonary Valve PV Pk Chay: 1.20 Peak PV Grad: 6.00 Updated in Other Vendor System with Status of Final Xander Pavon MD electronically signed on 04/25/2024 3:34:03 PM with status of Final
[2024-04-25] MEDS: Levothyroxine Sodium 25 MCG TABLET PO (07:39)
[2024-04-25 08:00] VITALS: BP 144/68; PULSE 85; RESP 18; TEMP 36.1; O2SAT 97
[2024-04-25 08:03] LABS: Glucose, Whole Blood 100 mg/dL (60-115)
[2024-04-25] MEDS: Sertraline HCL 100 MG TABLET PO (08:50)
[2024-04-25] MEDS: Carbidopa/Levodopa 25/100 TABLET 1 TAB PO ×3 (08:50→20:34)
[2024-04-25] MEDS: Metoprolol Tartrate 25 MG TABLET PO ×2 (08:50→20:39)
[2024-04-25] MEDS: Furosemide 20 MG TABLET PO (08:50)
[2024-04-25] MEDS: Lacosamide 100 MG TABLET PO ×2 (08:50→20:34)
[2024-04-25] MEDS: metFORMIN HCl 500 MG TABLET PO ×2 (08:50→17:30)
[2024-04-25] MEDS: QUEtiapine Fumarate 100 MG TABLET PO ×2 (08:50→14:26)
[2024-04-25] MEDS: Clopidogrel Bisulfate 75 MG TABLET PO (08:50)
[2024-04-25] MEDS: Cyclobenzaprine HCl 5 MG TABLET PO (08:52)
--- NOTE | 2024-04-25 10:04 | HO.PSYCHPN ---
Subjective Subjective Date of Service: 04/25/24 Reason For Visit: Suicidal ideation, CP Subjective Notes: Conditional Voluntary Healthcare Proxy: No Guardianship: No Medical Problems Affecting Mental Status: No Interim History: Cardiac Echocardiogram completed. Pt seen x 3. Demanding to be seen due to chest pain 01/16. Demanding immediate attention, however, refusing EKG, diagnostics. Demanding echo results, told these were read at the end of the day. States he is not being cared for properly and should be admitted to medicine, his preference to a psychiatric admission. Reviewed how the decision was made to admit to psychiatry-review of medical clearance, pt's reporting of SI and decision to admit psychiatrically with medical consultation as needed. Discussed history that has been provided by his insurance and care teams. They don't know, I have not talked with them in 4 months. Pt agreed that in all of his past hospitalizations no solution was found for his chest pain. He estimates that evals in [place] and [place] where showing occlusion that was increasing but was unsure. Explored other possible reasons for chest pain-pt will not drink water, only carbonated beverages as he does not like water. Discussed possibly effects of carbonation contributing to pain-denies. Impossible. Call to [facility] to discuss data from [place] and [place] showing occlusion. They will research. Pt will need to sign RODNEY if found. They suggested to call [facility] for Mar 2024 eval. Call to [facility] [phone]. They are not available to help until 04/28/24. Call to [facility] per pt request, Jaqueline Markos [phone]. Message left. Pt states he feels she knows him and can offer suggestions to help him. Med changes made on admission are tolerated. No further psych med changes at this time. Pt reports Depakote was most helpful, however, he did get pancreatitis x 3 on Depakote so it was stopped. Pt reports good sleep last evening with CPAP. He will need CPAP when discharged. Also discussed earlier today punching a wall due to anger. X rays were ordered and are negative. Medication Compliance: Yes Side effects from medications: No Attending Groups: Intermittent Review of Systems Diagnostics are negative at this time. Medical Review of Systems: unchanged Review of Systems Review of Systems chest pain wanting a medical admit Mental Status Exam Mental Status Exam Patient Appearance: Appropriate Patient Orientation: Person, Place, Time and Situation Level of Consciousness: Alert Patient Behavior: Talkative, Restless, Anxious, Fearful, Resistive to Care, Distractible and Good Eye Contact Mood Description: Constricted, Anxious, Nervous and Apprehensive Affect Description: Anxious, Nervous and Apprehensive Patient Cognition Impaired: No Ability to Follow Directions: Good Speech Pattern: Spontaneous Speech Memory Description: Remote Impaired and Episodic Impaired Hallucinations: None Delusions: Present Thought Process: Illogical, Distracted, Rumination and Evasive Thought Content: positive for Perseveration Depressive Symptoms: Increased Anxiety and Increased Irritability Abnormal Motor Activity Signs and Symptoms: Restlessness Judgement: Fair Diagnostics Vital Signs (24Hr): Vital Signs - 24 hr 04/24/24 12:47 04/24/24 14:02 04/24/24 20:00 Temperature 97.2 F Pulse Rate 90 120 H 113 H Respiratory Rate 18 18 Blood Pressure 145/77 H 162/83 H 148/75 H Pulse Oximetry 94 95 97 Oxygen Delivery Method Room Air Room Air Room Air 04/24/24 20:27 04/24/24 22:00 Temperature Pulse Rate 113 H Respiratory Rate 16 Blood Pressure 148/75 H Pulse Oximetry Oxygen Delivery Method BMI result Body Mass Index 38.4 Labs 04/21/24 17:12 04/21/24 17:12 Labs: Laboratory Results - last 48 hr 04/23/24 04/23/24 04/23/24 15:14 17:10 21:10 D-Dimer High Sensitivty POC Glucose 211 H 118 H Troponin I High Sens < 2.7 04/24/24 04/24/24 04/24/24 08:30 12:24 16:50 D-Dimer High Sensitivty < 150 POC Glucose 185 H 143 H Troponin I High Sens 04/24/24 04/25/24 23:28 07:54 D-Dimer High Sensitivty POC Glucose 110 100 Troponin I High Sens Medications Medications Current Medications Al Hydroxide/Mg Hydroxide (Magnesium Hydrox/Alum Hydrox 30 Ml Oral.Susp) 30 ml PO Q6H PRN PRN Reason: Heartburn/Nausea Albuterol Sulfate (Albuterol Sulfate 90 Mcg 8 Gm Inhaler) 2 puff INHALE RQ4H PRN PRN Reason: sob Atorvastatin Calcium (Atorvastatin Calcium 40 Mg Tablet) 40 mg PO BEDTIME [facility] Last Admin: 04/24/24 20:22 Dose: 40 mg Capsaicin (Capsaicin 0.025% Cream 60 Gm Tube) 1 appl TOPICAL QID PRN; Protocol PRN Reason: back pain Carbidopa/Levodopa (Carbidopa/Levodopa 25/100 Tablet) 1 tab PO TID [facility] Last Admin: 04/25/24 08:50 Dose: 1 tab Clopidogrel Bisulfate (Clopidogrel Bisulfate 75 Mg Tablet) 75 mg PO DAILY [facility] Last Admin: 04/25/24 08:50 Dose: 75 mg Cyclobenzaprine HCl (Cyclobenzaprine Hcl 5 Mg Tablet) 5 mg PO TID PRN PRN Reason: spasm Last Admin: 04/25/24 08:52 Dose: 5 mg Furosemide (Furosemide 20 Mg Tablet) 20 mg PO DAILY [facility]; Protocol Last Admin: 04/25/24 08:50 Dose: 20 mg Hydroxyzine HCl (Hydroxyzine Hcl 25 Mg Tablet) 25 mg PO Q6H PRN PRN Reason: Anxiety Last Admin: 04/23/24 21:40 Dose: 25 mg Lacosamide (Lacosamide 100 Mg Tablet) 100 mg PO BID [facility] Last Admin: 04/25/24 08:50 Dose: 100 mg Levothyroxine Sodium (Levothyroxine Sodium 25 Mcg Tablet) 25 mcg PO DAILY@0600 [facility] Last Admin: 04/25/24 07:39 Dose: 25 mcg Lidocaine (Lidocaine 4 % Patch Adh..Patch) 1 patch TRANSDERMA DAILY [facility]; Protocol Last Admin: 04/25/24 10:02 Dose: Not Given Lorazepam (Lorazepam 1 Mg Tablet) 1 mg PO Q4H PRN PRN Reason: Anxiety Last Admin: 04/24/24 12:43 Dose: 1 mg Magnesium Hydroxide (Milk Of Magnesia 30 Ml Oral.Susp) 30 ml PO DAILY PRN PRN Reason: Constipation Melatonin (Melatonin 3 Mg Tablet) 3 mg PO BEDTIME [facility] Last Admin: 04/24/24 20:29 Dose: 3 mg Metformin HCl (Metformin Hcl 500 Mg Tablet) 500 mg PO BID@0800,1700 [facility] Last Admin: 04/25/24 08:50 Dose: 500 mg Metoprolol Tartrate (Metoprolol Tartrate 25 Mg Tablet) 25 mg PO BID [facility]; Protocol Last Admin: 04/25/24 08:50 Dose: 25 mg Quetiapine Fumarate (Quetiapine Fumarate 100 Mg Tablet) 500 mg PO BEDTIME [facility] Last Admin: 04/24/24 20:29 Dose: 500 mg Quetiapine Fumarate (Quetiapine Fumarate 100 Mg Tablet) 100 mg PO 0900,1400 [facility] Last Admin: 04/25/24 08:50 Dose: 100 mg Rivaroxaban (Rivaroxaban 20 Mg Tablet) 20 mg PO DAILY@1700 [facility] Last Admin: 04/24/24 16:05 Dose: 20 mg Sertraline HCl (Sertraline Hcl 100 Mg Tablet) 100 mg PO DAILY [facility] Last Admin: 04/25/24 08:50 Dose: 100 mg Tamsulosin HCl (Tamsulosin Hcl 0.4 Mg Capsule) 0.4 mg PO BEDTIME [facility] Last Admin: 04/24/24 20:28 Dose: 0.4 mg Tiotropium [place] (Tiotropium [place] 2.5 Mcg 1 Puff/2.5 Mcg Mist.Inhal) 2 puff INHALE DAILY [facility] Last Admin: 04/24/24 09:00 Dose: Not Given Allergies Allergies Allergy/AdvReac Type Severity Reaction Status Date / Time acetaminophen [From TYLENOL] Allergy Severe ANAPHYLAXIS Verified 12/10/20 20:07 aspirin [ASA] Allergy Severe ANAPHYLAXIS Verified 12/10/20 20:07 nitroglycerin [NITROGLYCERIN] Allergy Severe ANAPHYLAXIS Verified 12/10/20 20:07 amoxicillin [AMOXICILLIN] Allergy Mild RASH Verified 12/10/20 20:07 fish derived [fish] Allergy Anaphylaxis Verified 04/22/24 11:04 ibuprofen Allergy Anaphylaxis Verified 04/21/24 16:34 Poultry Allergy Anaphylaxis Verified 04/22/24 11:04 Assessment & Plan Assessment & Plan (1) Chest pain: Status: Acute Code(s): R07.9 - Chest pain, unspecified (2) PTSD (post-traumatic stress disorder): Status: Acute Code(s): F43.10 - Post-traumatic stress disorder, unspecified (3) Depression: Status: Acute Code(s): F32.A - Depression, unspecified (4) Autism: Status: Acute Code(s): F84.0 - Autistic disorder (5) Suicidal ideation: Status: Acute Code(s): R45.851 - Suicidal ideations Plan 48-year-old gentleman with background history of PTSD, autism and suicidal ideation who presented with suicide ideation and is currently in inpatient psychiatry. He is reporting cardiovascular history with no reports or objective data available currently. He is on medicines including Xarelto for PE which was diagnosed 5 years ago in another hospital. He reports previous stents 25 year ago in the right coronary artery. He is on Plavix. His chest pain history is noncardiac in origin. I have reassured him that chest pain is not due to coronary disease. The pain is not pleuritic in nature. He is saying he missed his Xarelto for few weeks and I think it would be worth checking a D-dimer level. Recommend echocardiogram to assess LV/RV function. Overall clinical story is quite atypical and I have explained this to Mr. Rios in detail. Please try getting records from [facility]. Thank you for allowing me to participate in the care of your patient. Please feel free to contact me if you have any questions. 04/25: Continue current regime and plan. Reason for continued inpatient stay Substantial Risk for: rapid decompensation and med/psych decompensation Time Spent With Patient Time: Total time managing care of this patient today ____ minutes.
[2024-04-25] MEDS: Tiotropium Bromide 2.5 mcg 1 PUFF/2.5 MCG MIST.INHAL 2 PUFF INHALE (13:54)
[2024-04-25] MEDS: Capsaicin 0.025% Cream 60 GM TUBE 1 APPL TOPICAL (13:54)
[2024-04-25 14:00] VITALS: BP 141/76; PULSE 91; RESP 18; TEMP 36.1; O2SAT 96
[2024-04-25 15:13] VITALS: BP 145/88; PULSE 97; RESP 18; TEMP 36.2; O2SAT 95
[2024-04-25] MEDS: Rivaroxaban 20 MG TABLET PO (17:30)
[2024-04-25 20:00] VITALS: BP 156/77; PULSE 97; TEMP 37.1; O2SAT 97
[2024-04-25 20:31] LABS: Glucose, Whole Blood 102 mg/dL (60-115)
[2024-04-25] MEDS: QUEtiapine Fumarate 100 MG TABLET 500 MG PO (20:34)
[2024-04-25] MEDS: Tamsulosin HCL 0.4 MG CAPSULE PO (20:34)
[2024-04-25] MEDS: Melatonin 3 MG TABLET PO (20:34)
[2024-04-25] MEDS: Atorvastatin Calcium 40 MG TABLET PO (20:34)
[2024-04-25 20:39] VITALS: BP 156/77; PULSE 97
[2024-04-25 23:19] VITALS: PULSE 71; RESP 18; O2SAT 95
[2024-04-26] MEDS: Levothyroxine Sodium 25 MCG TABLET PO (06:11)
[2024-04-26 08:17] LABS: Glucose, Whole Blood 134 mg/dL (60-115)
[2024-04-26 08:40] VITALS: BP 142/74; PULSE 86; RESP 16; TEMP 36.8; O2SAT 97
[2024-04-26] MEDS: Clopidogrel Bisulfate 75 MG TABLET PO (09:03)
[2024-04-26] MEDS: QUEtiapine Fumarate 100 MG TABLET PO ×2 (09:03→15:26)
[2024-04-26] MEDS: Furosemide 20 MG TABLET PO (09:03)
[2024-04-26] MEDS: Carbidopa/Levodopa 25/100 TABLET 1 TAB PO ×3 (09:03→20:15)
[2024-04-26] MEDS: Metoprolol Tartrate 25 MG TABLET PO ×2 (09:03→20:15)
[2024-04-26] MEDS: Lacosamide 100 MG TABLET PO ×2 (09:03→20:15)
[2024-04-26] MEDS: Sertraline HCL 100 MG TABLET PO (09:03)
[2024-04-26] MEDS: metFORMIN HCl 500 MG TABLET PO ×2 (09:03→16:15)
[2024-04-26 10:07] LABS: Appearance Urine Clear; Color Urine Yellow; Glucose Urine UA 100 mg/dL (Negative); Leukocyte Esterase Urine Negative (Negative); Nitrite Urine Negative (Negative); PH 5.5 (5.0-9.0); Urine Blood Negative (Negative); Urine Ketones Negative (Negative); Urine Protein Negative (Neg-Trace)
[2024-04-26 10:11] LABS: Bacteria Urine None Seen (None Seen); Hyaline Casts Urine 0-2 /LPF (0-2); RBC Urine 0-2 /HPF (0-2); Squamous Epithelial Cell Urine 0-2 /HPF (0-2); WBC Urine 0-5 /HPF (0-5)
--- NOTE | 2024-04-26 11:29 | HO.PSYCHPN ---
Subjective Subjective Date of Service: 04/26/24 Reason For Visit: Suicidal ideation, CP Subjective Notes: Conditional Voluntary Interim History: Patient was seen and discussed in rounds today. Records and plans were reviewed. He has been stable and has been having a lot of chest and cardiac complaints but all the workup including a recent echocardiogram did not reveal any pathology. No complaints today. He is medication compliant. No side effects. No SI. He is in no discomfort Review of Systems Review of Systems No chest complaints today Yes all other systems are reviewed and are negative Mental Status Exam Mental Status Exam Narrative: In today's visit he is alert, oriented and pleasant. Normal speech. Good eye contact. Affect is appropriate and varied. No signs of psychosis. Cognitively is grossly intact but has had some memory deficits. No SI. Judgment is intact Diagnostics Vital Signs (24Hr): Vital Signs - 24 hr 04/25/24 14:00 04/25/24 15:13 04/25/24 20:00 Temperature 97.0 F 97.1 F 98.7 F Pulse Rate 91 97 97 Respiratory Rate 18 18 Blood Pressure 141/76 H 145/88 H 156/77 H Pulse Oximetry 96 95 97 Oxygen Delivery Method Room Air Room Air Room Air 04/25/24 20:39 04/25/24 23:19 04/26/24 08:40 Temperature 98.2 F Pulse Rate 97 86 Respiratory Rate 18 16 Blood Pressure 156/77 H 142/74 H Pulse Oximetry 97 Oxygen Delivery Method Room Air BMI result Body Mass Index 38.4 Labs 04/21/24 17:12 04/21/24 17:12 Labs: Laboratory Results - last 48 hr 04/24/24 04/24/24 04/24/24 12:24 16:50 23:28 D-Dimer High Sensitivty < 150 POC Glucose 143 H 110 Urine Color Urine Appearance Urine pH Ur Specific [place] Urine Protein Urine Glucose (UA) Urine Ketones Urine Blood Urine Nitrite Ur Leukocyte Esterase Urine RBC Urine WBC Ur Squamous Epith Cells Urine Bacteria Hyaline Casts 04/25/24 04/25/24 04/26/24 07:54 20:25 08:09 D-Dimer High Sensitivty POC Glucose 100 102 134 H Urine Color Urine Appearance Urine pH Ur Specific [place] Urine Protein Urine Glucose (UA) Urine Ketones Urine Blood Urine Nitrite Ur Leukocyte Esterase Urine RBC Urine WBC Ur Squamous Epith Cells Urine Bacteria Hyaline Casts 04/26/24 09:46 D-Dimer High Sensitivty POC Glucose Urine Color Yellow Urine Appearance Clear Urine pH 5.5 Ur Specific [place] 1.020 Urine Protein Negative Urine Glucose (UA) 100 H Urine Ketones Negative Urine Blood Negative Urine Nitrite Negative Ur Leukocyte Esterase Negative Urine RBC 0-2 Urine WBC 0-5 Ur Squamous Epith Cells 0-2 Urine Bacteria None Seen Hyaline Casts 0-2 Imaging Radiology Impressions: ITS Impressions Hand X-Ray 04/25/24 12:10 IMPRESSION: No evidence of fracture of the left hand. Electronically signed by: Daljit Wong MD 04/25/2024 12:34 PM EST Medications Medications Current Medications Al Hydroxide/Mg Hydroxide (Magnesium Hydrox/Alum Hydrox 30 Ml Oral.Susp) 30 ml PO Q6H PRN PRN Reason: Heartburn/Nausea Albuterol Sulfate (Albuterol Sulfate 90 Mcg 8 Gm Inhaler) 2 puff INHALE RQ4H PRN PRN Reason: sob Atorvastatin Calcium (Atorvastatin Calcium 40 Mg Tablet) 40 mg PO BEDTIME [facility] Last Admin: 04/25/24 20:34 Dose: 40 mg Capsaicin (Capsaicin 0.025% Cream 60 Gm Tube) 1 appl TOPICAL QID PRN; Protocol PRN Reason: back pain Last Admin: 04/25/24 13:54 Dose: 1 appl Carbidopa/Levodopa (Carbidopa/Levodopa 25/100 Tablet) 1 tab PO TID [facility] Last Admin: 04/26/24 09:03 Dose: 1 tab Clopidogrel Bisulfate (Clopidogrel Bisulfate 75 Mg Tablet) 75 mg PO DAILY [facility] Last Admin: 04/26/24 09:03 Dose: 75 mg Cyclobenzaprine HCl (Cyclobenzaprine Hcl 5 Mg Tablet) 5 mg PO TID PRN PRN Reason: spasm Last Admin: 04/25/24 08:52 Dose: 5 mg Furosemide (Furosemide 20 Mg Tablet) 20 mg PO DAILY [facility]; Protocol Last Admin: 04/26/24 09:03 Dose: 20 mg Haloperidol (Haloperidol 1 Mg Tablet) 2 mg PO Q6H PRN PRN Reason: agitation Hydroxyzine HCl (Hydroxyzine Hcl 25 Mg Tablet) 25 mg PO Q6H PRN PRN Reason: Anxiety Last Admin: 04/23/24 21:40 Dose: 25 mg Lacosamide (Lacosamide 100 Mg Tablet) 100 mg PO BID [facility] Last Admin: 04/26/24 09:03 Dose: 100 mg Levothyroxine Sodium (Levothyroxine Sodium 25 Mcg Tablet) 25 mcg PO DAILY@0600 [facility] Last Admin: 04/26/24 06:11 Dose: 25 mcg Lidocaine (Lidocaine 4 % Patch Adh..Patch) 1 patch TRANSDERMA DAILY [facility]; Protocol Last Admin: 04/26/24 10:39 Dose: Not Given Lorazepam (Lorazepam 1 Mg Tablet) 1 mg PO Q4H PRN PRN Reason: Anxiety Last Admin: 04/24/24 12:43 Dose: 1 mg Magnesium Hydroxide (Milk Of Magnesia 30 Ml Oral.Susp) 30 ml PO DAILY PRN PRN Reason: Constipation Melatonin (Melatonin 3 Mg Tablet) 3 mg PO BEDTIME [facility] Last Admin: 04/25/24 20:34 Dose: 3 mg Metformin HCl (Metformin Hcl 500 Mg Tablet) 500 mg PO BID@0800,1700 [facility] Last Admin: 04/26/24 09:03 Dose: 500 mg Metoprolol Tartrate (Metoprolol Tartrate 25 Mg Tablet) 25 mg PO BID [facility]; Protocol Last Admin: 04/26/24 09:03 Dose: 25 mg Quetiapine Fumarate (Quetiapine Fumarate 100 Mg Tablet) 500 mg PO BEDTIME [facility] Last Admin: 04/25/24 20:34 Dose: 500 mg Quetiapine Fumarate (Quetiapine Fumarate 100 Mg Tablet) 100 mg PO 0900,1400 [facility] Last Admin: 04/26/24 09:03 Dose: 100 mg Rivaroxaban (Rivaroxaban 20 Mg Tablet) 20 mg PO DAILY@1700 [facility] Last Admin: 04/25/24 17:30 Dose: 20 mg Sertraline HCl (Sertraline Hcl 100 Mg Tablet) 100 mg PO DAILY [facility] Last Admin: 04/26/24 09:03 Dose: 100 mg Tamsulosin HCl (Tamsulosin Hcl 0.4 Mg Capsule) 0.4 mg PO BEDTIME [facility] Last Admin: 04/25/24 20:34 Dose: 0.4 mg Tiotropium [place] (Tiotropium [place] 2.5 Mcg 1 Puff/2.5 Mcg Mist.Inhal) 2 puff INHALE DAILY [facility] Last Admin: 04/26/24 10:39 Dose: Not Given Allergies Allergies Allergy/AdvReac Type Severity Reaction Status Date / Time acetaminophen [From TYLENOL] Allergy Severe ANAPHYLAXIS Verified 12/10/20 20:07 aspirin [ASA] Allergy Severe ANAPHYLAXIS Verified 12/10/20 20:07 nitroglycerin [NITROGLYCERIN] Allergy Severe ANAPHYLAXIS Verified 12/10/20 20:07 amoxicillin [AMOXICILLIN] Allergy Mild RASH Verified 12/10/20 20:07 fish derived [fish] Allergy Anaphylaxis Verified 04/22/24 11:04 ibuprofen Allergy Anaphylaxis Verified 04/21/24 16:34 Poultry Allergy Anaphylaxis Verified 04/22/24 11:04 Assessment & Plan Assessment & Plan (1) Chest pain: Status: Acute Code(s): R07.9 - Chest pain, unspecified (2) PTSD (post-traumatic stress disorder): Status: Acute Code(s): F43.10 - Post-traumatic stress disorder, unspecified (3) Depression: Status: Acute Code(s): F32.A - Depression, unspecified (4) Autism: Status: Acute Code(s): F84.0 - Autistic disorder (5) Suicidal ideation: Status: Acute Code(s): R45.851 - Suicidal ideations Plan 48-year-old gentleman with background history of PTSD, autism and suicidal ideation who presented with suicide ideation and is currently in inpatient psychiatry. He is reporting cardiovascular history with no reports or objective data available currently. He is on medicines including Xarelto for PE which was diagnosed 5 years ago in another hospital. He reports previous stents 25 year ago in the right coronary artery. He is on Plavix. His chest pain history is noncardiac in origin. I have reassured him that chest pain is not due to coronary disease. The pain is not pleuritic in nature. He is saying he missed his Xarelto for few weeks and I think it would be worth checking a D-dimer level. Recommend echocardiogram to assess LV/RV function. Overall clinical story is quite atypical and I have explained this to Mr. Rios in detail. Please try getting records from [facility]. Thank you for allowing me to participate in the care of your patient. Please feel free to contact me if you have any questions. 04/25: Continue current regime and plan. 04/26/2024: Continue current regimen and plans Reason for continued inpatient stay Substantial Risk for: med/psych decompensation Time Spent With Patient Time: Total time managing care of this patient today ____ minutes.
[2024-04-26] MEDS: Capsaicin 0.025% Cream 60 GM TUBE 1 APPL TOPICAL (13:22)
[2024-04-26 13:37] VITALS: BP 144/78; PULSE 82; RESP 16; TEMP 36.9; O2SAT 95
--- NOTE | 2024-04-26 13:37 | PC.NURSE ---
Addendum entered by Josiane Garcia RN 04/26/24 14:02: no new orders given Original Note: pt reports 7/10 chest pain, vitals stable and wnl (documented on worklist). After vitals assessment, pt asked about results of echo obtained the day prior. Echo report was reviewed with pt which showed no abnormal findings. Pt then shrugged his shoulders and requested cream for my back pain rated 8/10. Affect is incongruent w/ pain scale as patient is laughing, ambulating and socializing pleasantly w/ staff and peers in presents as relaxed and calm. Pt has had numerous cardiac tests/labs with no findings. ECHO reports pain may be in response to a hiatal hernia. Provider AM notified of chest pain report via [facility]. Awaiting orders.
[2024-04-26] MEDS: Rivaroxaban 20 MG TABLET PO (16:15)
[2024-04-26 19:59] VITALS: BP 125/72; PULSE 109; TEMP 36.3; O2SAT 96
[2024-04-26 20:15] VITALS: BP 125/72; PULSE 109
[2024-04-26] MEDS: Melatonin 3 MG TABLET PO (20:15)
[2024-04-26] MEDS: Atorvastatin Calcium 40 MG TABLET PO (20:15)
[2024-04-26] MEDS: QUEtiapine Fumarate 100 MG TABLET 500 MG PO (20:15)
[2024-04-26] MEDS: Tamsulosin HCL 0.4 MG CAPSULE PO (20:15)
[2024-04-26 21:11] LABS: Glucose, Whole Blood 99 mg/dL (60-115)
--- NOTE | 2024-04-26 21:44 | PC.NURSE ---
Patient refused his CPAP this evening.
[2024-04-27] MEDS: Levothyroxine Sodium 25 MCG TABLET PO (06:03)
[2024-04-27 08:14] LABS: Glucose, Whole Blood 104 mg/dL (60-115)
[2024-04-27 08:26] VITALS: BP 127/77; PULSE 77; RESP 16; TEMP 36.2; O2SAT 96
[2024-04-27] MEDS: Carbidopa/Levodopa 25/100 TABLET 1 TAB PO ×3 (08:41→20:25)
[2024-04-27] MEDS: Metoprolol Tartrate 25 MG TABLET PO ×2 (08:41→20:25)
[2024-04-27 08:42] VITALS: BP 127/77
[2024-04-27] MEDS: Furosemide 20 MG TABLET PO (08:42)
[2024-04-27] MEDS: Sertraline HCL 100 MG TABLET PO (08:42)
[2024-04-27] MEDS: Lacosamide 100 MG TABLET PO ×2 (08:42→20:25)
[2024-04-27] MEDS: metFORMIN HCl 500 MG TABLET PO ×2 (08:42→18:16)
[2024-04-27] MEDS: QUEtiapine Fumarate 100 MG TABLET PO ×2 (08:42→15:39)
[2024-04-27] MEDS: Clopidogrel Bisulfate 75 MG TABLET PO (08:42)
[2024-04-27] MEDS: HaloperidoL 1 MG TABLET 2 MG PO (10:28)
[2024-04-27] MEDS: hydrOXYzine HCL 25 MG TABLET PO (10:28)
--- NOTE | 2024-04-27 10:56 | P.PNPSI_ITS ---
Subjective Subjective Date of Service: 04/27/24 Reason For Visit: Suicidal ideation, CP Subjective Notes: Conditional Voluntary Interim History: Patient was seen and discussed in rounds today. Records and plans were reviewed. He had 2 episodes of chest pain yesterday and was reassured and he is aware that we have done a lot of workup with no findings. 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 Passive SI with no plans or intent. Eating and sleeping adequately. No changes were made today Review of Systems Review of Systems Chest pain Yes all other systems are reviewed and are negative Mental Status Exam Mental Status Exam Narrative: In today's visit he is alert, oriented and pleasant. Normal speech. Good eye contact. Affect is appropriate and varied. No signs of psychosis. Cognitively is grossly intact but has had some memory deficits. No SI. Judgment is intact Diagnostics Vital Signs (24Hr): Vital Signs - 24 hr 04/26/24 13:37 04/26/24 19:59 04/26/24 20:15 Temperature 98.4 F 97.3 F Pulse Rate 82 109 H 109 H Respiratory Rate 16 Blood Pressure 144/78 H 125/72 125/72 Pulse Oximetry 95 96 Oxygen Delivery Method Room Air Room Air 04/27/24 08:26 04/27/24 08:42 Temperature 97.1 F Pulse Rate 77 Respiratory Rate 16 Blood Pressure 127/77 127/77 Pulse Oximetry 96 Oxygen Delivery Method Room Air BMI result Body Mass Index 38.4 Labs 04/21/24 17:12 04/21/24 17:12 Labs: Laboratory Results - last 48 hr 04/25/24 04/26/24 04/26/24 20:25 08:09 09:46 POC Glucose 102 134 H Urine Color Yellow Urine Appearance Clear Urine pH 5.5 Ur Specific [place] 1.020 Urine Protein Negative Urine Glucose (UA) 100 H Urine Ketones Negative Urine Blood Negative Urine Nitrite Negative Ur Leukocyte Esterase Negative Urine RBC 0-2 Urine WBC 0-5 Ur Squamous Epith Cells 0-2 Urine Bacteria None Seen Hyaline Casts 0-2 04/26/24 04/27/24 21:07 08:00 POC Glucose 99 104 Urine Color Urine Appearance Urine pH Ur Specific [place] Urine Protein Urine Glucose (UA) Urine Ketones Urine Blood Urine Nitrite Ur Leukocyte Esterase Urine RBC Urine WBC Ur Squamous Epith Cells Urine Bacteria Hyaline Casts Imaging Radiology Impressions: ITS Impressions Hand X-Ray 04/25/24 12:10 IMPRESSION: No evidence of fracture of the left hand. Electronically signed by: Daljit Wong MD 04/25/2024 12:34 PM [facility] Medications Medications Current Medications Al Hydroxide/Mg Hydroxide (Magnesium Hydrox/Alum Hydrox 30 Ml Oral.Susp) 30 ml PO Q6H PRN PRN Reason: Heartburn/Nausea Albuterol Sulfate (Albuterol Sulfate 90 Mcg 8 Gm Inhaler) 2 puff INHALE RQ4H PRN PRN Reason: sob Atorvastatin Calcium (Atorvastatin Calcium 40 Mg Tablet) 40 mg PO BEDTIME [facility] Last Admin: 04/26/24 20:15 Dose: 40 mg Capsaicin (Capsaicin 0.025% Cream 60 Gm Tube) 1 appl TOPICAL QID PRN; Protocol PRN Reason: back pain Last Admin: 04/26/24 13:22 Dose: 1 appl Carbidopa/Levodopa (Carbidopa/Levodopa 25/100 Tablet) 1 tab PO TID [facility] Last Admin: 04/27/24 08:41 Dose: 1 tab Clopidogrel Bisulfate (Clopidogrel Bisulfate 75 Mg Tablet) 75 mg PO DAILY [facility] Last Admin: 04/27/24 08:42 Dose: 75 mg Cyclobenzaprine HCl (Cyclobenzaprine Hcl 5 Mg Tablet) 5 mg PO TID PRN PRN Reason: spasm Last Admin: 04/25/24 08:52 Dose: 5 mg Furosemide (Furosemide 20 Mg Tablet) 20 mg PO DAILY [facility]; Protocol Last Admin: 04/27/24 08:42 Dose: 20 mg Haloperidol (Haloperidol 1 Mg Tablet) 2 mg PO Q6H PRN PRN Reason: agitation Last Admin: 04/27/24 10:28 Dose: 2 mg Hydroxyzine HCl (Hydroxyzine Hcl 25 Mg Tablet) 25 mg PO Q6H PRN PRN Reason: Anxiety Last Admin: 04/27/24 10:28 Dose: 25 mg Lacosamide (Lacosamide 100 Mg Tablet) 100 mg PO BID [facility] Last Admin: 04/27/24 08:42 Dose: 100 mg Levothyroxine Sodium (Levothyroxine Sodium 25 Mcg Tablet) 25 mcg PO DAILY@0600 [facility] Last Admin: 04/27/24 06:03 Dose: 25 mcg Lidocaine (Lidocaine 4 % Patch Adh..Patch) 1 patch TRANSDERMA DAILY [facility]; Protocol Last Admin: 04/27/24 08:42 Dose: Not Given Lorazepam (Lorazepam 1 Mg Tablet) 1 mg PO Q4H PRN PRN Reason: Anxiety Last Admin: 04/24/24 12:43 Dose: 1 mg Magnesium Hydroxide (Milk Of Magnesia 30 Ml Oral.Susp) 30 ml PO DAILY PRN PRN Reason: Constipation Melatonin (Melatonin 3 Mg Tablet) 3 mg PO BEDTIME [facility] Last Admin: 04/26/24 20:15 Dose: 3 mg Metformin HCl (Metformin Hcl 500 Mg Tablet) 500 mg PO BID@0800,1700 [facility] Last Admin: 04/27/24 08:42 Dose: 500 mg Metoprolol Tartrate (Metoprolol Tartrate 25 Mg Tablet) 25 mg PO BID [facility]; Protocol Last Admin: 04/27/24 08:41 Dose: 25 mg Quetiapine Fumarate (Quetiapine Fumarate 100 Mg Tablet) 500 mg PO BEDTIME [facility] Last Admin: 04/26/24 20:15 Dose: 500 mg Quetiapine Fumarate (Quetiapine Fumarate 100 Mg Tablet) 100 mg PO 0900,1400 [facility] Last Admin: 04/27/24 08:42 Dose: 100 mg Rivaroxaban (Rivaroxaban 20 Mg Tablet) 20 mg PO DAILY@1700 [facility] Last Admin: 04/26/24 16:15 Dose: 20 mg Sertraline HCl (Sertraline Hcl 100 Mg Tablet) 100 mg PO DAILY [facility] Last Admin: 04/27/24 08:42 Dose: 100 mg Tamsulosin HCl (Tamsulosin Hcl 0.4 Mg Capsule) 0.4 mg PO BEDTIME [facility] Last Admin: 04/26/24 20:15 Dose: 0.4 mg Tiotropium [place] (Tiotropium [place] 2.5 Mcg 1 Puff/2.5 Mcg Mist.Inhal) 2 puff INHALE DAILY [facility] Last Admin: 04/27/24 08:43 Dose: Not Given Allergies Allergies Allergy/AdvReac Type Severity Reaction Status Date / Time acetaminophen [From TYLENOL] Allergy Severe ANAPHYLAXIS Verified 12/10/20 20:07 aspirin [ASA] Allergy Severe ANAPHYLAXIS Verified 12/10/20 20:07 nitroglycerin [NITROGLYCERIN] Allergy Severe ANAPHYLAXIS Verified 12/10/20 20:07 amoxicillin [AMOXICILLIN] Allergy Mild RASH Verified 12/10/20 20:07 fish derived [fish] Allergy Anaphylaxis Verified 04/22/24 11:04 ibuprofen Allergy Anaphylaxis Verified 04/21/24 16:34 Poultry Allergy Anaphylaxis Verified 04/22/24 11:04 Assessment & Plan Assessment & Plan (1) Chest pain: Status: Acute Code(s): R07.9 - Chest pain, unspecified (2) PTSD (post-traumatic stress disorder): Status: Acute Code(s): F43.10 - Post-traumatic stress disorder, unspecified (3) Depression: Status: Acute Code(s): F32.A - Depression, unspecified (4) Autism: Status: Acute Code(s): F84.0 - Autistic disorder (5) Suicidal ideation: Status: Acute Code(s): R45.851 - Suicidal ideations Plan 48-year-old gentleman with background history of PTSD, autism and suicidal ideation who presented with suicide ideation and is currently in inpatient psychiatry. He is reporting cardiovascular history with no reports or objective data available currently. He is on medicines including Xarelto for PE which was diagnosed 5 years ago in another hospital. He reports previous stents 25 year ago in the right coronary artery. He is on Plavix. His chest pain history is noncardiac in origin. I have reassured him that chest pain is not due to coronary disease. The pain is not pleuritic in nature. He is saying he missed his Xarelto for few weeks and I think it would be worth checking a D-dimer level. Recommend echocardiogram to assess LV/RV function. Overall clinical story is quite atypical and I have explained this to Mr. Rios in detail. Please try getting records from [facility]. Thank you for allowing me to participate in the care of your patient. Please feel free to contact me if you have any questions. 04/25: Continue current regime and plan. 04/26/2024: Continue current regimen and plans 04/27/2024: Continue current regimen and plans Reason for continued inpatient stay Substantial Risk for: med/psych decompensation Time Spent With Patient Time: Total time managing care of this patient today ____ minutes.
[2024-04-27] MEDS: Rivaroxaban 20 MG TABLET PO (18:16)
[2024-04-27 20:00] VITALS: BP 146/76; PULSE 94; RESP 16; TEMP 36.4; O2SAT 95
[2024-04-27 20:25] VITALS: BP 146/78; PULSE 94
[2024-04-27] MEDS: Melatonin 3 MG TABLET PO (20:25)
[2024-04-27] MEDS: QUEtiapine Fumarate 100 MG TABLET 500 MG PO (20:25)
[2024-04-27] MEDS: Tamsulosin HCL 0.4 MG CAPSULE PO (20:25)
[2024-04-27] MEDS: Atorvastatin Calcium 40 MG TABLET PO (20:25)
[2024-04-27] MEDS: Cyclobenzaprine HCl 5 MG TABLET PO (20:26)
--- NOTE | 2024-04-27 22:16 | PC.RT ---
py has refused cpap .this is the second night in a row. If there is another night then the order will be dc'd per policy
[2024-04-28] MEDS: Levothyroxine Sodium 25 MCG TABLET PO (06:37)
[2024-04-28 08:20] VITALS: BP 131/75; PULSE 82; RESP 16; TEMP 37.1; O2SAT 96
[2024-04-28 08:21] LABS: Creatinine Clr Calc Pharmacy 177.9; Estimated Glomerular Filt Rate > 60
[2024-04-28 08:26] LABS: Glucose, Whole Blood 105 mg/dL (60-115)
[2024-04-28] MEDS: Carbidopa/Levodopa 25/100 TABLET 1 TAB PO ×3 (08:29→20:21)
[2024-04-28] MEDS: QUEtiapine Fumarate 100 MG TABLET PO (08:29)
[2024-04-28] MEDS: Sertraline HCL 100 MG TABLET PO (08:29)
[2024-04-28] MEDS: Lacosamide 100 MG TABLET PO ×2 (08:29→20:18)
[2024-04-28] MEDS: Clopidogrel Bisulfate 75 MG TABLET PO (08:29)
[2024-04-28] MEDS: Metoprolol Tartrate 25 MG TABLET PO ×2 (08:29→20:17)
[2024-04-28] MEDS: metFORMIN HCl 500 MG TABLET PO ×2 (08:30→18:46)
[2024-04-28] MEDS: Furosemide 20 MG TABLET PO (08:30)
[2024-04-28] MEDS: traMADoL HCL 50 MG TABLET PO (11:56)
[2024-04-28] MEDS: Cyclobenzaprine HCl 5 MG TABLET PO (11:56)
--- NOTE | 2024-04-28 13:17 | HO.PSYCHPN ---
Subjective Subjective Date of Service: 04/28/24 Reason For Visit: Suicidal ideation, CP Subjective Notes: Conditional Voluntary Healthcare Proxy: No Guardianship: No Medical Problems Affecting Mental Status: No Interim History: That Haldol you gave me is good, it helps. I would like to have some to take to respite. Team report a decrease in chest pain over the weekend. Pt does report back pain. He did trial Capsaicin and found that it irritated his skin so this has been stopped. We will trial low dose Tramadol for back pain today. Reports he may discharge to respite on 04/29. States symptoms have diminished, however were higher over the weekend (depressive sx, perceptual alterations). Discussed a small increase of daytime Seroquel which he agrees with. Asks that when he discharges he not be given hydroxyzine but give a small amt of Lorazepam, as it is more helpful Medication Compliance: Yes Side effects from medications: No (denies) Attending Groups: Intermittent Review of Systems Acute medical concerns: No Review of Systems Review of Systems back pain denies chest pain today Mental Status Exam Mental Status Exam Patient Appearance: Appropriate Patient Orientation: Person, Place, Time and Situation Level of Consciousness: Alert Patient Behavior: Appropriate, Talkative, Cooperative and Good Eye Contact Mood Description: Calm and Appropriate Affect Description: Calm and Appropriate Patient Cognition Impaired: No Ability to Follow Directions: Good Speech Pattern: Spontaneous Speech Memory Description: Intact Hallucinations: None (denies today) Delusions: Not Present Thought Process: Intact and Goal Oriented Thought Content: positive for Intact and positive for Goal Oriented Depressive Symptoms: Increased Anxiety and Thoughts of /Suicide (denies) Judgement: Good Diagnostics Vital Signs (24Hr): Vital Signs - 24 hr 04/27/24 20:00 04/27/24 20:25 04/28/24 08:20 Temperature 97.6 F 98.7 F Pulse Rate 94 94 82 Respiratory Rate 16 16 Blood Pressure 146/76 H 146/78 H 131/75 Pulse Oximetry 95 96 Oxygen Delivery Method Room Air Room Air BMI result Body Mass Index 38.4 Labs 04/21/24 17:12 04/28/24 07:50 Labs: Laboratory Results - last 48 hr 04/26/24 04/27/24 04/28/24 21:07 08:00 07:50 Creatinine 0.67 Estim Creat Clear Calc 177.9 Estimated GFR > 60 POC Glucose 99 104 04/28/24 08:11 Creatinine Estim Creat Clear Calc Estimated GFR POC Glucose 105 Imaging Radiology Impressions: ITS Impressions Hand X-Ray 04/25/24 12:10 IMPRESSION: No evidence of fracture of the left hand. Electronically signed by: Daljit Wong MD 04/25/2024 12:34 PM EST Medications Medications Current Medications Al Hydroxide/Mg Hydroxide (Magnesium Hydrox/Alum Hydrox 30 Ml Oral.Susp) 30 ml PO Q6H PRN PRN Reason: Heartburn/Nausea Albuterol Sulfate (Albuterol Sulfate 90 Mcg 8 Gm Inhaler) 2 puff INHALE RQ4H PRN PRN Reason: sob Atorvastatin Calcium (Atorvastatin Calcium 40 Mg Tablet) 40 mg PO BEDTIME [facility] Last Admin: 04/27/24 20:25 Dose: 40 mg Carbidopa/Levodopa (Carbidopa/Levodopa 25/100 Tablet) 1 tab PO TID [facility] Last Admin: 04/28/24 08:29 Dose: 1 tab Clopidogrel Bisulfate (Clopidogrel Bisulfate 75 Mg Tablet) 75 mg PO DAILY [facility] Last Admin: 04/28/24 08:29 Dose: 75 mg Cyclobenzaprine HCl (Cyclobenzaprine Hcl 5 Mg Tablet) 5 mg PO TID PRN PRN Reason: spasm Last Admin: 04/28/24 11:56 Dose: 5 mg Furosemide (Furosemide 20 Mg Tablet) 20 mg PO DAILY [facility]; Protocol Last Admin: 04/28/24 08:30 Dose: 20 mg Haloperidol (Haloperidol 1 Mg Tablet) 2 mg PO Q6H PRN PRN Reason: agitation Last Admin: 04/27/24 10:28 Dose: 2 mg Hydroxyzine HCl (Hydroxyzine Hcl 25 Mg Tablet) 25 mg PO Q6H PRN PRN Reason: Anxiety Last Admin: 04/27/24 10:28 Dose: 25 mg Lacosamide (Lacosamide 100 Mg Tablet) 100 mg PO BID [facility] Last Admin: 04/28/24 08:29 Dose: 100 mg Levothyroxine Sodium (Levothyroxine Sodium 25 Mcg Tablet) 25 mcg PO DAILY@0600 [facility] Last Admin: 04/28/24 06:37 Dose: 25 mcg Lidocaine (Lidocaine 4 % Patch Adh..Patch) 1 patch TRANSDERMA DAILY [facility]; Protocol Last Admin: 04/28/24 09:52 Dose: Not Given Lorazepam (Lorazepam 1 Mg Tablet) 1 mg PO Q4H PRN PRN Reason: Anxiety Last Admin: 04/24/24 12:43 Dose: 1 mg Magnesium Hydroxide (Milk Of Magnesia 30 Ml Oral.Susp) 30 ml PO DAILY PRN PRN Reason: Constipation Melatonin (Melatonin 3 Mg Tablet) 3 mg PO BEDTIME [facility] Last Admin: 04/27/24 20:25 Dose: 3 mg Metformin HCl (Metformin Hcl 500 Mg Tablet) 500 mg PO BID@0800,1700 [facility] Last Admin: 04/28/24 08:30 Dose: 500 mg Metoprolol Tartrate (Metoprolol Tartrate 25 Mg Tablet) 25 mg PO BID [facility]; Protocol Last Admin: 04/28/24 08:29 Dose: 25 mg Quetiapine Fumarate (Quetiapine Fumarate 100 Mg Tablet) 500 mg PO BEDTIME [facility] Last Admin: 04/27/24 20:25 Dose: 500 mg Quetiapine Fumarate (Quetiapine Fumarate 25 Mg Tablet) 125 mg PO 0900,1400 [facility] Rivaroxaban (Rivaroxaban 20 Mg Tablet) 20 mg PO DAILY@1700 [facility] Last Admin: 04/27/24 18:16 Dose: 20 mg Sertraline HCl (Sertraline Hcl 100 Mg Tablet) 100 mg PO DAILY [facility] Last Admin: 04/28/24 08:29 Dose: 100 mg Tamsulosin HCl (Tamsulosin Hcl 0.4 Mg Capsule) 0.4 mg PO BEDTIME [facility] Last Admin: 04/27/24 20:25 Dose: 0.4 mg Tiotropium [place] (Tiotropium [place] 2.5 Mcg 1 Puff/2.5 Mcg Mist.Inhal) 2 puff INHALE DAILY [facility] Last Admin: 04/28/24 08:30 Dose: Not Given Tramadol HCl (Tramadol Hcl 50 Mg Tablet) 50 mg PO Q6H PRN PRN Reason: back pain/spasm Last Admin: 04/28/24 11:56 Dose: 50 mg Allergies Allergies Allergy/AdvReac Type Severity Reaction Status Date / Time acetaminophen [From TYLENOL] Allergy Severe ANAPHYLAXIS Verified 12/10/20 20:07 aspirin [ASA] Allergy Severe ANAPHYLAXIS Verified 12/10/20 20:07 nitroglycerin [NITROGLYCERIN] Allergy Severe ANAPHYLAXIS Verified 12/10/20 20:07 amoxicillin [AMOXICILLIN] Allergy Mild RASH Verified 12/10/20 20:07 fish derived [fish] Allergy Anaphylaxis Verified 04/22/24 11:04 ibuprofen Allergy Anaphylaxis Verified 04/21/24 16:34 Poultry Allergy Anaphylaxis Verified 04/22/24 11:04 Assessment & Plan Assessment & Plan (1) Chest pain: Status: Acute Code(s): R07.9 - Chest pain, unspecified (2) PTSD (post-traumatic stress disorder): Status: Acute Code(s): F43.10 - Post-traumatic stress disorder, unspecified (3) Depression: Status: Acute Code(s): F32.A - Depression, unspecified (4) Autism: Status: Acute Code(s): F84.0 - Autistic disorder (5) Suicidal ideation: Status: Acute Code(s): R45.851 - Suicidal ideations Plan 48-year-old gentleman with background history of PTSD, autism and suicidal ideation who presented with suicide ideation and is currently in inpatient psychiatry. He is reporting cardiovascular history with no reports or objective data available currently. He is on medicines including Xarelto for PE which was diagnosed 5 years ago in another hospital. He reports previous stents 25 year ago in the right coronary artery. He is on Plavix. His chest pain history is noncardiac in origin. I have reassured him that chest pain is not due to coronary disease. The pain is not pleuritic in nature. He is saying he missed his Xarelto for few weeks and I think it would be worth checking a D-dimer level. Recommend echocardiogram to assess LV/RV function. Overall clinical story is quite atypical and I have explained this to Mr. Rios in detail. Please try getting records from [facility]. Thank you for allowing me to participate in the care of your patient. Please feel free to contact me if you have any questions. 04/25: Continue current regime and plan. 04/26/2024: Continue current regimen and plans 04/27/2024: Continue current regimen and plans 04/28/24: Pt believes he will discharge to respite on 04/29/24 which he is in agreement with Increase daytime Seroquel to 125 mg bid Reason for continued inpatient stay Substantial Risk for: rapid decompensation Time Spent With Patient Time: Total time managing care of this patient today ____ minutes.
[2024-04-28] MEDS: QUEtiapine Fumarate 25 MG TABLET 125 MG PO (14:12)
[2024-04-28] MEDS: HaloperidoL 1 MG TABLET 2 MG PO (14:29)
[2024-04-28] MEDS: hydrOXYzine HCL 25 MG TABLET PO (14:29)
[2024-04-28] MEDS: Rivaroxaban 20 MG TABLET PO (18:45)
[2024-04-28 19:48] VITALS: BP 158/80; PULSE 105; TEMP 35.9; O2SAT 98
[2024-04-28] MEDS: QUEtiapine Fumarate 100 MG TABLET 500 MG PO (20:16)
[2024-04-28] MEDS: Tamsulosin HCL 0.4 MG CAPSULE PO (20:17)
[2024-04-28] MEDS: Melatonin 3 MG TABLET PO (20:17)
[2024-04-28] MEDS: Atorvastatin Calcium 40 MG TABLET PO (20:17)
[2024-04-28 20:56] LABS: Glucose, Whole Blood 116 mg/dL (60-115)
--- NOTE | 2024-04-29 | ECG_ITS ---
Test Reason : chest pain Blood Pressure : */* mmHG Vent. Rate : 83 BPM Atrial Rate : 83 BPM P-R Int : 188 ms QRS Dur : 100 ms QT Int : 356 ms P-R-T Axes : 50 39 52 degrees QTcB Int : 418 ms Normal sinus rhythm Normal ECG When compared with ECG of 23-Apr-2024 14:57, No significant change was found Referred By: Pedro Guardado Electronically Signed By: NAMAN CASTELLANOS MD
--- NOTE | 2024-04-29 | ECG_ITS ---
Test Reason : tachycardia/palpitations Blood Pressure : */* mmHG Vent. Rate : 118 BPM Atrial Rate : 118 BPM P-R Int : 170 ms QRS Dur : 96 ms QT Int : 312 ms P-R-T Axes : 59 31 51 degrees QTcB Int : 437 ms Poor data quality, interpretation may be adversely affected Sinus tachycardia Otherwise normal ECG When compared with ECG of 29-Apr-2024 11:12, No significant change was found Referred By: Cami Avery Electronically Signed By:
--- NOTE | 2024-04-29 | ECG_ITS ---
Test Reason : Chest Pain (Repeated Exam) Blood Pressure : */* mmHG Vent. Rate : 86 BPM Atrial Rate : 86 BPM P-R Int : 192 ms QRS Dur : 98 ms QT Int : 356 ms P-R-T Axes : 50 43 56 degrees QTcB Int : 426 ms Normal sinus rhythm Normal ECG When compared with ECG of 29-Apr-2024 11:11, No significant change was found Referred By: Pedro Guardado Electronically Signed By: NAMAN CASTELLANOS MD
[2024-04-29] MEDS: Levothyroxine Sodium 25 MCG TABLET PO (06:20)
[2024-04-29 07:55] VITALS: BP 126/74; PULSE 87; RESP 18; TEMP 36; O2SAT 96
[2024-04-29 07:56] LABS: Glucose, Whole Blood 143 mg/dL (60-115)
[2024-04-29] MEDS: Carbidopa/Levodopa 25/100 TABLET 1 TAB PO ×3 (08:36→20:39)
[2024-04-29] MEDS: Lacosamide 100 MG TABLET PO ×2 (08:37→20:39)
[2024-04-29] MEDS: metFORMIN HCl 500 MG TABLET PO ×2 (08:37→16:09)
[2024-04-29] MEDS: Clopidogrel Bisulfate 75 MG TABLET PO (08:37)
[2024-04-29] MEDS: Furosemide 20 MG TABLET PO (08:37)
[2024-04-29] MEDS: Sertraline HCL 100 MG TABLET PO (08:39)
[2024-04-29] MEDS: QUEtiapine Fumarate 25 MG TABLET 125 MG PO ×2 (08:39→13:32)
[2024-04-29] MEDS: Metoprolol Tartrate 25 MG TABLET PO ×2 (08:39→20:38)
--- NOTE | 2024-04-29 10:49 | HO.PSYCHPN ---
Subjective Subjective Date of Service: 04/29/24 Reason For Visit: Suicidal ideation, CP Subjective Notes: Conditional Voluntary Interim History: Pt reports 01/16 chest pain, EKG, troponin unremarkable. Seen by hospitalist. continue to report severe chest pain, which has been chronic. He was seen by cardiology on 04/24- did not think chest pain is cardiac in nature. Given pepcid as in the past medical records report some GI component to chest pain, although he denies this is the cause. Insisting to see hospitalist and fundraising director and this specification writer again. Pt has multiple ED and medical admission- we have records from [facility] also determine not cardiac in nature. If needed in the future [facility] records can be obtain. [facility] wants to bring him to their [facility] as he has had more than 100 hospital[place] past [place]. He is not psychotic- although somatically preoccupied. Review of Systems Review of Systems back pain denies chest pain today Yes all other systems are reviewed and are negative Constitutional: Denies fatigue and Denies fever(s) Cardiovascular: Reports chest pain and Denies dyspnea Respiratory: Denies cough and Denies dyspnea Gastrointestinal: Denies abdominal pain, Denies nausea and Denies vomiting Endocrine: Denies fatigue Mental Status Exam Mental Status Exam Narrative: In today's visit he is alert, oriented and pleasant. Normal speech. Good eye contact. Affect is appropriate and varied. No signs of psychosis. Cognitively is grossly intact but has had some memory deficits. No SI. Judgment is intact Patient Appearance: Appropriate Patient Orientation: Person, Place, Time and Situation Level of Consciousness: Alert Patient Behavior: Appropriate, Talkative, Cooperative and Good Eye Contact Mood Description: Calm and Appropriate Affect Description: Calm and Appropriate Patient Cognition Impaired: No Ability to Follow Directions: Good Speech Pattern: Spontaneous Speech Memory Description: Intact Diagnostics Vital Signs (24Hr): Vital Signs - 24 hr 04/28/24 19:48 04/29/24 07:55 Temperature 96.7 F L 96.8 F Pulse Rate 105 H 87 Respiratory Rate 18 Blood Pressure 158/80 H 126/74 Pulse Oximetry 98 96 Oxygen Delivery Method Room Air Room Air BMI result Body Mass Index 38.4 Labs 04/29/24 14:40 04/29/24 14:40 Labs: Laboratory Results - last 48 hr 04/28/24 04/28/24 04/28/24 07:50 08:11 20:52 Creatinine 0.67 Estim Creat Clear Calc 177.9 Estimated GFR > 60 POC Glucose 105 116 H 04/29/24 07:45 Creatinine Estim Creat Clear Calc Estimated GFR POC Glucose 143 H Imaging Radiology Impressions: ITS Impressions Hand X-Ray 04/25/24 12:10 IMPRESSION: No evidence of fracture of the left hand. Electronically signed by: Daljit Wong MD 04/25/2024 12:34 PM [facility] Medications Medications Current Medications Al Hydroxide/Mg Hydroxide (Magnesium Hydrox/Alum Hydrox 30 Ml Oral.Susp) 30 ml PO Q6H PRN PRN Reason: Heartburn/Nausea Albuterol Sulfate (Albuterol Sulfate 90 Mcg 8 Gm Inhaler) 2 puff INHALE RQ4H PRN PRN Reason: sob Atorvastatin Calcium (Atorvastatin Calcium 40 Mg Tablet) 40 mg PO BEDTIME [facility] Last Admin: 04/28/24 20:17 Dose: 40 mg Carbidopa/Levodopa (Carbidopa/Levodopa 25/100 Tablet) 1 tab PO TID [facility] Last Admin: 04/29/24 08:36 Dose: 1 tab Clopidogrel Bisulfate (Clopidogrel Bisulfate 75 Mg Tablet) 75 mg PO DAILY [facility] Last Admin: 04/29/24 08:37 Dose: 75 mg Cyclobenzaprine HCl (Cyclobenzaprine Hcl 5 Mg Tablet) 5 mg PO TID PRN PRN Reason: spasm Last Admin: 04/28/24 11:56 Dose: 5 mg Furosemide (Furosemide 20 Mg Tablet) 20 mg PO DAILY [facility], [facility]; Protocol Last Admin: 04/29/24 08:37 Dose: 20 mg Haloperidol (Haloperidol 1 Mg Tablet) 2 mg PO Q6H PRN PRN Reason: agitation Last Admin: 04/28/24 14:29 Dose: 2 mg Lacosamide (Lacosamide 100 Mg Tablet) 100 mg PO BID [facility] Last Admin: 04/29/24 08:37 Dose: 100 mg Levothyroxine Sodium (Levothyroxine Sodium 25 Mcg Tablet) 25 mcg PO DAILY@0600 [facility] Last Admin: 04/29/24 06:20 Dose: 25 mcg Lidocaine (Lidocaine 4 % Patch Adh..Patch) 1 patch TRANSDERMA DAILY [facility]; Protocol Last Admin: 04/29/24 08:40 Dose: Not Given Lorazepam (Lorazepam 1 Mg Tablet) 1 mg PO Q4H PRN PRN Reason: Anxiety Last Admin: 04/24/24 12:43 Dose: 1 mg Magnesium Hydroxide (Milk Of Magnesia 30 Ml Oral.Susp) 30 ml PO DAILY PRN PRN Reason: Constipation Melatonin (Melatonin 3 Mg Tablet) 3 mg PO BEDTIME [facility] Last Admin: 04/28/24 20:17 Dose: 3 mg Metformin HCl (Metformin Hcl 500 Mg Tablet) 500 mg PO BID@0800,1700 [facility] Last Admin: 04/29/24 08:37 Dose: 500 mg Metoprolol Tartrate (Metoprolol Tartrate 25 Mg Tablet) 25 mg PO BID [facility]; Protocol Last Admin: 04/29/24 08:39 Dose: 25 mg Quetiapine Fumarate (Quetiapine Fumarate 100 Mg Tablet) 500 mg PO BEDTIME [facility] Last Admin: 04/28/24 20:16 Dose: 500 mg Quetiapine Fumarate (Quetiapine Fumarate 25 Mg Tablet) 125 mg PO 0900,1400 [facility] Last Admin: 04/29/24 08:39 Dose: 125 mg Rivaroxaban (Rivaroxaban 20 Mg Tablet) 20 mg PO DAILY@1700 [facility] Last Admin: 04/28/24 18:45 Dose: 20 mg Sertraline HCl (Sertraline Hcl 100 Mg Tablet) 100 mg PO DAILY [facility] Last Admin: 04/29/24 08:39 Dose: 100 mg Tamsulosin HCl (Tamsulosin Hcl 0.4 Mg Capsule) 0.4 mg PO BEDTIME [facility] Last Admin: 04/28/24 20:17 Dose: 0.4 mg Tiotropium [place] (Tiotropium [place] 2.5 Mcg 1 Puff/2.5 Mcg Mist.Inhal) 2 puff INHALE DAILY [facility] Last Admin: 04/29/24 10:42 Dose: Not Given Tramadol HCl (Tramadol Hcl 50 Mg Tablet) 50 mg PO Q6H PRN PRN Reason: back pain/spasm Last Admin: 04/28/24 11:56 Dose: 50 mg Allergies Allergies Allergy/AdvReac Type Severity Reaction Status Date / Time acetaminophen [From TYLENOL] Allergy Severe ANAPHYLAXIS Verified 12/10/20 20:07 aspirin [ASA] Allergy Severe ANAPHYLAXIS Verified 12/10/20 20:07 nitroglycerin [NITROGLYCERIN] Allergy Severe ANAPHYLAXIS Verified 12/10/20 20:07 amoxicillin [AMOXICILLIN] Allergy Mild RASH Verified 12/10/20 20:07 fish derived [fish] Allergy Anaphylaxis Verified 04/22/24 11:04 ibuprofen Allergy Anaphylaxis Verified 04/21/24 16:34 Poultry Allergy Anaphylaxis Verified 04/22/24 11:04 Assessment & Plan Assessment & Plan (1) PTSD (post-traumatic stress disorder): Status: Acute Code(s): F43.10 - Post-traumatic stress disorder, unspecified (2) Chest pain: Status: Acute Code(s): R07.9 - Chest pain, unspecified (3) Depression: Status: Acute Code(s): F32.A - Depression, unspecified (4) Autism: Status: Acute Code(s): F84.0 - Autistic disorder (5) Suicidal ideation: Status: Acute Code(s): R45.851 - Suicidal ideations Plan 48-year-old gentleman with background history of PTSD, autism and suicidal ideation who presented with suicide ideation and is currently in inpatient psychiatry. He is reporting cardiovascular history with no reports or objective data available currently. He is on medicines including Xarelto for PE which was diagnosed 5 years ago in another hospital. He reports previous stents 25 year ago in the right coronary artery. He is on Plavix. His chest pain history is noncardiac in origin. I have reassured him that chest pain is not due to coronary disease. The pain is not pleuritic in nature. He is saying he missed his Xarelto for few weeks and I think it would be worth checking a D-dimer level. Recommend echocardiogram to assess LV/RV function. Overall clinical story is quite atypical and I have explained this to Mr. Rios in detail. Please try getting records from [facility]. Thank you for allowing me to participate in the care of your patient. Please feel free to contact me if you have any questions. 04/25: Continue current regime and plan. 04/26/2024: Continue current regimen and plans 04/27/2024: Continue current regimen and plans 04/28/24: Pt believes he will discharge to respite on 04/29/24 which he is in agreement with Increase daytime Seroquel to 125 mg bid 04/29 continue tx. chest pain reported again, negative troponins, EKG, repeat troponins also neg. Reason for continued inpatient stay Substantial Risk for: inability to function Time Spent With Patient Time: Total time managing care of this patient today ____ minutes.
[2024-04-29 11:00] VITALS: BP 130/72; PULSE 87; RESP 20; O2SAT 98
[2024-04-29] MEDS: LORazepam 1 MG TABLET PO ×2 (11:00→20:39)
[2024-04-29 11:56] LABS: Troponin-I High Sensitivity < 2.7 ng/L (<3.5-35.0)
--- NOTE | 2024-04-29 12:24 | PC.NURSE ---
Addendum entered by Paula Chung RN 04/29/24 15:20: Pt seen by hospitalist for evaluation of CP and additional reported symptoms. Repeat troponin redrawn at 2 pm normal <2.7. CBC and CMP also drawn and repeat EKG done as well for indication of tachycardia. Provider Gena informed of results. Enoc was given pepcid 20 mg po and will start on it daily. He has reported that the pain is unbearable. He's currently laying down in bed and looks slightly pale, latest bp 136/77, HR 120, sat 95% on RA. Discussed with Gena and will continue to monitor. Pt declined all available pain meds reporting they do not help. Offered emotional support and active listening and pt appreciative of this and feels heard with TW. Original Note: At approximately 11 am, Pt complained of CP 1/10 worse than ever , pain radiating down left arm, left sided jaw pain, nausea, and pain between shoulders. Dr Esparza informed and VS taken and WNL. Stat troponins and ECG ordered. Cami Avery covering provider informed of above. Pt states I feel like crap.... ?Despite complaining of 10/10 pain worse than ever before, pt is observed to be ambulating and interacting on the unit without apparent discomfort, making phone calls, then proceeding to sit in the kitchen while watching TV. He was given Ativan 1 mg po in case symptoms are related to anxiety around questionable DC today. Pt asked to see a scowman and this was told to ALEC Avery. Troponin back and <2.7 and provider informed.?
--- NOTE | 2024-04-29 13:52 | PM.EVENT ---
Event Note Date of Service: 04/29/24 Event Note: Consult The patient was complaining of chest pain for 2 hours at time of interview. reported central pain, heaviness, radiated to both shoulder with associated shortness of breath. He is in the [facility] for suicidal ideation and depression. beding treated and ready to discharge home. He was seen earlier during this admission for chest pain of similar description by cardiology team who did not feel his pain is cardiac in origin. EKG done showing normal sinus rhythm with no ST\T wave changes First Trop Negative, to repeat Echo was done normal LV and wall motion with EF of 65%. Noted to have hiatus hernia which might be contributin to his complaint. Follow 2nd Trop Give PPI for now. Time Spent With Patient Time: Total time managing care of this patient today ____ minutes.
[2024-04-29] MEDS: Famotidine 20 MG TABLET PO (13:55)
[2024-04-29 14:15] VITALS: BP 138/64; PULSE 136; RESP 21; O2SAT 95
[2024-04-29 14:44] LABS: MANUAL DIFF FLAG NO
[2024-04-29 14:46] LABS: Basophils Percent Auto 0.4 % (0-2); Eosinophils Absolute Auto 0.1 X10*3/uL (0.0-0.4); Eosinophils Percent Auto 2.3 % (0-4); Hematocrit 31.9 % (42.0-52.0); Hemoglobin 10.3 g/dl (14.0-18.0); Imm Gran Abs Auto 0.02 X10*3/uL (0.00-0.03); Imm Gran Pct Auto 0.4 % (0.0-0.4); Lymphocytes Absolute Auto 1.2 X10*3/uL (1.2-4.9); Lymphocytes Percent Auto 25.2 % (20-40); Mean Corpuscular HGB Conc 32.3 g/dl (31.0-36.0); Mean Corpuscular Hemoglobin 25.8 pg (27.0-33.0); Mean Corpuscular Volume 79.8 fL (80.0-98.0); Mean Platelet Volume 9.5 fL (9.4-12.4); Monocytes Absolute Auto 0.5 X10*3/uL (0.1-1.2); Monocytes Percent Auto 10.5 % (2-11); Neutrophils Percent Auto 61.2 % (45-73); Platelet Count 346 X10*3/uL (160-400); Red Cell Distribution Width 15.4 % (11.0-16.0); White Blood Count 4.8 X10*3/uL (4.8-10.8)
[2024-04-29 15:06] LABS: Alanine Aminotransferase 16 U/L (0-40); Albumin Level 3.7 g/dL (3.5-5.0); Alkaline Phosphatase 83 U/L (39-117); Anion Gap 10 (12-20); Aspartate Amino Transferase 17 U/L (5-37); Bilirubin Total 0.2 mg/dL (0.0-1.0); Blood Urea Nitrogen 18 mg/dL (9-16); Calcium 7.9 mg/dL (8.4-10.2); Carbon Dioxide 20 mmol/L (22-29); Chloride 110 mmol/L (96-108); Creatinine Clr Calc Pharmacy 167.9; Estimated Glomerular Filt Rate > 60; Glucose Random 203 mg/dL (60-115); Potassium 3.7 mmol/L (3.3-5.1); Sodium 136 mmol/L (135-145); Total Protein 6.9 g/dL (6.5-8.0)
[2024-04-29 15:13] LABS: Troponin-I High Sensitivity < 2.7 ng/L (<3.5-35.0)
[2024-04-29 15:46] LABS: Magnesium 1.8 mg/dL (1.6-2.6)
[2024-04-29] MEDS: Rivaroxaban 20 MG TABLET PO (16:09)
[2024-04-29 16:58] LABS: D Dimer High Sensitivity < 150 NG/ML
[2024-04-29 20:00] VITALS: BP 133/78; PULSE 116; RESP 16; TEMP 35.9; O2SAT 97
[2024-04-29] MEDS: HaloperidoL 1 MG TABLET 2 MG PO (20:37)
[2024-04-29] MEDS: Cyclobenzaprine HCl 5 MG TABLET PO (20:37)
[2024-04-29 20:38] VITALS: BP 143/78; PULSE 103
[2024-04-29] MEDS: Tamsulosin HCL 0.4 MG CAPSULE PO (20:38)
[2024-04-29] MEDS: Atorvastatin Calcium 40 MG TABLET PO (20:39)
[2024-04-29] MEDS: QUEtiapine Fumarate 100 MG TABLET 500 MG PO (20:39)
[2024-04-29] MEDS: traMADoL HCL 50 MG TABLET PO (20:39)
[2024-04-29] MEDS: Melatonin 3 MG TABLET PO (20:39)
[2024-04-29 21:30] LABS: Glucose, Whole Blood 252 mg/dL (60-115)
--- NOTE | 2024-04-30 02:55 | PC.NURSE ---
When this junior copywriter asked patient why he does not want to use a cpap he said I toss around in bed a lot and the mask gets moved all over my face .
[2024-04-30] MEDS: Levothyroxine Sodium 25 MCG TABLET PO (06:46)
[2024-04-30 08:14] LABS: Glucose, Whole Blood 122 mg/dL (60-115)
[2024-04-30] MEDS: Clopidogrel Bisulfate 75 MG TABLET PO (08:55)
[2024-04-30] MEDS: Famotidine 20 MG TABLET PO (08:57)
[2024-04-30] MEDS: Lacosamide 100 MG TABLET PO (08:57)
[2024-04-30] MEDS: Carbidopa/Levodopa 25/100 TABLET 1 TAB PO ×2 (08:57→15:11)
[2024-04-30] MEDS: metFORMIN HCl 500 MG TABLET PO (08:57)
[2024-04-30] MEDS: Sertraline HCL 100 MG TABLET PO (08:57)
[2024-04-30] MEDS: QUEtiapine Fumarate 25 MG TABLET 125 MG PO ×2 (08:57→15:09)
[2024-04-30] MEDS: Furosemide 20 MG TABLET PO (08:57)
[2024-04-30] MEDS: Tiotropium Bromide 2.5 mcg 1 PUFF/2.5 MCG MIST.INHAL 2 PUFF INHALE (08:58)
[2024-04-30] MEDS: Metoprolol Tartrate 25 MG TABLET PO (08:58)
--- NOTE | 2024-04-30 15:16 | PM.PSYDC ---
DS: Providers Provider Date of admission: 04/22/24 13:40 Primary care physician: None Physician Consults: 04/23/24 14:52 Consult to Cardiology Routine Consulting Provider: [facility] Reason for consultation: persistent chest pain, reports LA ~6 months ago Has provider been notified: No 04/23/24 16:23 Consult to Hospitalist Routine Comment: EKG wnl. Hx of LA's Consulting Provider: [facility] Reason For Exam: Severe chest pain, reports vomiting 04/29/24 12:53 Consult to Hospitalist Stat Comment: Consulting Provider: [facility] Reason For Exam: severe chest pain/first EKG and trop neg. DS: Diagnosis Discharge Diagnosis (1) PTSD (post-traumatic stress disorder): Status: Acute (2) Chest pain: Status: Acute (3) Depression: Status: Acute (4) Autism: Status: Acute (5) Suicidal ideation: Status: Acute DS: Medications Discharge Medications Home Medications: Previous Rx's ?Medication ?Instructions ?Recorded albuterol sulfate 90 mcg/actuation 2 puff inhalation RQ4H PRN sob #1 04/30/24 aerosol inhaler (Ventolin HFA) inhaler atorvastatin 40 mg tablet 40 mg PO BEDTIME #14 tabs 04/30/24 carbidopa 25 mg-levodopa 100 mg 1 tab PO TID #42 tabs 04/30/24 tablet clopidogrel 75 mg tablet 75 mg PO DAILY #14 tabs 04/30/24 cyclobenzaprine 5 mg tablet 5 mg PO TID PRN spasm #21 tabs 04/30/24 famotidine 20 mg tablet 20 mg PO DAILY #14 tabs 04/30/24 furosemide 20 mg tablet 20 mg PO DAILY #14 tabs 04/30/24 haloperidol 2 mg tablet 2 mg PO BEDTIME #28 tabs 04/30/24 lacosamide 100 mg tablet (Vimpat) 100 mg PO BID #14 tabs 04/30/24 levothyroxine 25 mcg tablet 25 mcg PO DAILY@0600 #14 tabs 04/30/24 lidocaine 4 % topical patch 1 patch transdermal DAILY #14 ea 04/30/24 (Lidocaine Pain Relief) lorazepam 1 mg tablet 1 mg PO Q4H PRN Anxiety #7 tabs 04/30/24 melatonin 3 mg tablet 3 mg PO BEDTIME #14 tabs 01/22/25 metformin 500 mg tablet 500 mg PO BID@0800,1700 #28 tabs 04/30/24 metoprolol tartrate 25 mg tablet 25 mg PO BID #28 tabs 04/30/24 quetiapine 100 mg tablet (Seroquel) 100 mg PO BID #14 tabs 04/30/24 quetiapine 400 mg tablet (Seroquel) 400 mg PO BEDTIME #7 tabs 04/30/24 rivaroxaban 20 mg tablet (Xarelto) 20 mg PO DAILY@1700 #14 tabs 04/30/24 sertraline 100 mg tablet 100 mg PO DAILY #14 tabs 04/30/24 tamsulosin 0.4 mg capsule 0.4 mg PO BEDTIME #14 caps 04/30/24 tiotropium bromide 2.5 2 puff inhalation DAILY #1 inhaler 04/30/24 mcg/actuation mist for inhalation (Spiriva Respimat) Data Data Completed and Pending Completed studies during hospitalization [Text1]: 04/23/24 04/23/24 04/23/24 15:14 17:10 21:10 WBC RBC Hgb Hct MCV MCH MCHC RDW Plt Count MPV Immature Gran % (Auto) Neut % (Auto) Lymph % (Auto) George % (Auto) Eos % (Auto) Baso % (Auto) Lymph # (Auto) George # (Auto) Eos # (Auto) Baso # (Auto) Abs Immat Gran (auto) Absolute Neuts (auto) Absolute Nucleated RBC Nucleated RBC % (auto) D-Dimer High Sensitivty Sodium Potassium Chloride Carbon Dioxide Anion Gap BUN Creatinine Estim Creat Clear Calc Estimated GFR POC Glucose 211 H 118 H Random Glucose Calcium Magnesium Total Bilirubin AST ALT Alkaline Phosphatase Troponin I High Sens < 2.7 Total Protein Albumin Urine Color Urine Appearance Urine pH Ur Specific [place] Urine Protein Urine Glucose (UA) Urine Ketones Urine Blood Urine Nitrite Ur Leukocyte Esterase Urine RBC Urine WBC Ur Squamous Epith Cells Urine Bacteria Hyaline Casts 04/24/24 04/24/24 04/24/24 08:30 12:24 16:50 WBC RBC Hgb Hct MCV MCH MCHC RDW Plt Count MPV Immature Gran % (Auto) Neut % (Auto) Lymph % (Auto) George % (Auto) Eos % (Auto) Baso % (Auto) Lymph # (Auto) George # (Auto) Eos # (Auto) Baso # (Auto) Abs Immat Gran (auto) Absolute Neuts (auto) Absolute Nucleated RBC Nucleated RBC % (auto) D-Dimer High Sensitivty < 150 Sodium Potassium Chloride Carbon Dioxide Anion Gap BUN Creatinine Estim Creat Clear Calc Estimated GFR POC Glucose 185 H 143 H Random Glucose Calcium Magnesium Total Bilirubin AST ALT Alkaline Phosphatase Troponin I High Sens Total Protein Albumin Urine Color Urine Appearance Urine pH Ur Specific [place] Urine Protein Urine Glucose (UA) Urine Ketones Urine Blood Urine Nitrite Ur Leukocyte Esterase Urine RBC Urine WBC Ur Squamous Epith Cells Urine Bacteria Hyaline Casts 04/24/24 04/25/24 04/25/24 23:28 07:54 20:25 WBC RBC Hgb Hct MCV MCH MCHC RDW Plt Count MPV Immature Gran % (Auto) Neut % (Auto) Lymph % (Auto) George % (Auto) Eos % (Auto) Baso % (Auto) Lymph # (Auto) George # (Auto) Eos # (Auto) Baso # (Auto) Abs Immat Gran (auto) Absolute Neuts (auto) Absolute Nucleated RBC Nucleated RBC % (auto) D-Dimer High Sensitivty Sodium Potassium Chloride Carbon Dioxide Anion Gap BUN Creatinine Estim Creat Clear Calc Estimated GFR POC Glucose 110 100 102 Random Glucose Calcium Magnesium Total Bilirubin AST ALT Alkaline Phosphatase Troponin I High Sens Total Protein Albumin Urine Color Urine Appearance Urine pH Ur Specific [place] Urine Protein Urine Glucose (UA) Urine Ketones Urine Blood Urine Nitrite Ur Leukocyte Esterase Urine RBC Urine WBC Ur Squamous Epith Cells Urine Bacteria Hyaline Casts 04/26/24 04/26/24 04/26/24 08:09 09:46 21:07 WBC RBC Hgb Hct MCV MCH MCHC RDW Plt Count MPV Immature Gran % (Auto) Neut % (Auto) Lymph % (Auto) George % (Auto) Eos % (Auto) Baso % (Auto) Lymph # (Auto) George # (Auto) Eos # (Auto) Baso # (Auto) Abs Immat Gran (auto) Absolute Neuts (auto) Absolute Nucleated RBC Nucleated RBC % (auto) D-Dimer High Sensitivty Sodium Potassium Chloride Carbon Dioxide Anion Gap BUN Creatinine Estim Creat Clear Calc Estimated GFR POC Glucose 134 H 99 Random Glucose Calcium Magnesium Total Bilirubin AST ALT Alkaline Phosphatase Troponin I High Sens Total Protein Albumin Urine Color Yellow Urine Appearance Clear Urine pH 5.5 Ur Specific [place] 1.020 Urine Protein Negative Urine Glucose (UA) 100 H Urine Ketones Negative Urine Blood Negative Urine Nitrite Negative Ur Leukocyte Esterase Negative Urine RBC 0-2 Urine WBC 0-5 Ur Squamous Epith Cells 0-2 Urine Bacteria None Seen Hyaline Casts 0-2 04/27/24 04/28/24 04/28/24 08:00 07:50 08:11 WBC RBC Hgb Hct MCV MCH MCHC RDW Plt Count MPV Immature Gran % (Auto) Neut % (Auto) Lymph % (Auto) George % (Auto) Eos % (Auto) Baso % (Auto) Lymph # (Auto) George # (Auto) Eos # (Auto) Baso # (Auto) Abs Immat Gran (auto) Absolute Neuts (auto) Absolute Nucleated RBC Nucleated RBC % (auto) D-Dimer High Sensitivty Sodium Potassium Chloride Carbon Dioxide Anion Gap BUN Creatinine 0.67 Estim Creat Clear Calc 177.9 Estimated GFR > 60 POC Glucose 104 105 Random Glucose Calcium Magnesium Total Bilirubin AST ALT Alkaline Phosphatase Troponin I High Sens Total Protein Albumin Urine Color Urine Appearance Urine pH Ur Specific [place] Urine Protein Urine Glucose (UA) Urine Ketones Urine Blood Urine Nitrite Ur Leukocyte Esterase Urine RBC Urine WBC Ur Squamous Epith Cells Urine Bacteria Hyaline Casts 04/28/24 04/29/24 04/29/24 20:52 07:45 11:08 WBC RBC Hgb Hct MCV MCH MCHC RDW Plt Count MPV Immature Gran % (Auto) Neut % (Auto) Lymph % (Auto) George % (Auto) Eos % (Auto) Baso % (Auto) Lymph # (Auto) George # (Auto) Eos # (Auto) Baso # (Auto) Abs Immat Gran (auto) Absolute Neuts (auto) Absolute Nucleated RBC Nucleated RBC % (auto) D-Dimer High Sensitivty Sodium Potassium Chloride Carbon Dioxide Anion Gap BUN Creatinine Estim Creat Clear Calc Estimated GFR POC Glucose 116 H 143 H Random Glucose Calcium Magnesium Total Bilirubin AST ALT Alkaline Phosphatase Troponin I High Sens < 2.7 Total Protein Albumin Urine Color Urine Appearance Urine pH Ur Specific [place] Urine Protein Urine Glucose (UA) Urine Ketones Urine Blood Urine Nitrite Ur Leukocyte Esterase Urine RBC Urine WBC Ur Squamous Epith Cells Urine Bacteria Hyaline Casts 04/29/24 04/29/24 04/29/24 14:40 16:19 21:13 WBC 4.8 RBC 4.00 L Hgb 10.3 L Hct 31.9 L MCV 79.8 L MCH 25.8 L MCHC 32.3 RDW 15.4 Plt Count 346 MPV 9.5 Immature Gran % (Auto) 0.4 Neut % (Auto) 61.2 Lymph % (Auto) 25.2 George % (Auto) 10.5 Eos % (Auto) 2.3 Baso % (Auto) 0.4 Lymph # (Auto) 1.2 George # (Auto) 0.5 Eos # (Auto) 0.1 Baso # (Auto) 0.0 Abs Immat Gran (auto) 0.02 Absolute Neuts (auto) 3.0 Absolute Nucleated RBC 0.000 Nucleated RBC % (auto) 0.0 D-Dimer High Sensitivty < 150 Sodium 136 Potassium 3.7 Chloride 110 H Carbon Dioxide 20 L Anion Gap 10 L BUN 18 H Creatinine 0.71 Estim Creat Clear Calc 167.9 Estimated GFR > 60 POC Glucose 252 H Random Glucose 203 H Calcium 7.9 L D Magnesium 1.8 Total Bilirubin 0.2 AST 17 ALT 16 Alkaline Phosphatase 83 Troponin I High Sens < 2.7 Total Protein 6.9 Albumin 3.7 Urine Color Urine Appearance Urine pH Ur Specific [place] Urine Protein Urine Glucose (UA) Urine Ketones Urine Blood Urine Nitrite Ur Leukocyte Esterase Urine RBC Urine WBC Ur Squamous Epith Cells Urine Bacteria Hyaline Casts 04/30/24 08:08 WBC RBC Hgb Hct MCV MCH MCHC RDW Plt Count MPV Immature Gran % (Auto) Neut % (Auto) Lymph % (Auto) George % (Auto) Eos % (Auto) Baso % (Auto) Lymph # (Auto) George # (Auto) Eos # (Auto) Baso # (Auto) Abs Immat Gran (auto) Absolute Neuts (auto) Absolute Nucleated RBC Nucleated RBC % (auto) D-Dimer High Sensitivty Sodium Potassium Chloride Carbon Dioxide Anion Gap BUN Creatinine Estim Creat Clear Calc Estimated GFR POC Glucose 122 H Random Glucose Calcium Magnesium Total Bilirubin AST ALT Alkaline Phosphatase Troponin I High Sens Total Protein Albumin Urine Color Urine Appearance Urine pH Ur Specific [place] Urine Protein Urine Glucose (UA) Urine Ketones Urine Blood Urine Nitrite Ur Leukocyte Esterase Urine RBC Urine WBC Ur Squamous Epith Cells Urine Bacteria Hyaline Casts Imaging Diagnostic Imaging Impressions Hand X-Ray 04/25/24 12:10 IMPRESSION: No evidence of fracture of the left hand. Electronically signed by: Daljit Wong MD 04/25/2024 12:34 PM [facility] DS: Summary Time Spent with Patient Time attestation: Total time managing care of this patient today ____ minutes. Discharge Plan Discharge Anticipated Discharge Date/Time: 04/29/24 12:00 Patient Disposition: Group Home Discharge Diagnosis: PTSD Recurrent Major Depression Autism Hypothyroidism Hyperlipidemia Diabetes History of Pulmonary Embolism BPH Referrals: [facility] [Other] - 1 Week (If you need urgent therapy appointments or require crisis please call the provided number ) [facility] [Other] - 1 Week Physician,None [Primary Care Provider] - 1 Week Discharge Medications: New tamsulosin 0.4 mg Capsule 0.4 mg PO BEDTIME Qty: 14 0RF cyclobenzaprine 5 mg Tablet 5 mg PO TID PRN (Reason: spasm) Qty: 21 0RF Spiriva Respimat 2.5 mcg/actuation Mist 2 puff inhalation DAILY Qty: 1 0RF Xarelto 20 mg Tablet 20 mg PO DAILY@1700 Qty: 14 0RF atorvastatin 40 mg Tablet 40 mg PO BEDTIME Qty: 14 0RF lorazepam 1 mg Tablet 1 mg PO Q4H PRN (Reason: Anxiety) Qty: 7 1RF carbidopa-levodopa 25-100 mg Tablet 1 tab PO TID Qty: 42 0RF metoprolol tartrate 25 mg Tablet 25 mg PO BID Qty: 28 0RF Protocol: Hold for SBP/HR < HOLD for SBP < : 90 HOLD for HR < : 60 metformin 500 mg Tablet 500 mg PO BID@0800,1700 Qty: 28 0RF lidocaine [Lidocaine Pain Relief] 4 % Adhesive Patch,Medicated 1 patch transdermal DAILY Qty: 14 0RF Protocol: Apply to: Apply to: back melatonin 3 mg Tablet 3 mg PO BEDTIME Qty: 14 0RF levothyroxine 25 mcg Tablet 25 mcg PO DAILY@0600 Qty: 14 0RF famotidine 20 mg Tablet 20 mg PO DAILY Qty: 14 0RF furosemide 20 mg Tablet 20 mg PO DAILY Qty: 14 0RF Protocol: Hold for SBP< HOLD for SBP < : 90 haloperidol 2 mg tablet 2 mg PO BEDTIME Qty: 28 0RF Rx Instructions: Take one tablet at bedtime and one tablet daily as needed for agitation quetiapine [Seroquel] 100 mg tablet 100 mg PO BID Qty: 14 1RF quetiapine [Seroquel] 400 mg tablet 400 mg PO BEDTIME Qty: 7 1RF lacosamide [Vimpat] 100 mg tablet 100 mg PO BID Qty: 14 1RF Continued sertraline 100 mg tablet 100 mg PO DAILY Qty: 14 0RF clopidogrel 75 mg Tablet 75 mg PO DAILY Qty: 14 0RF albuterol sulfate [Ventolin HFA] 90 mcg/actuation Hfa Aerosol Inhaler 2 puff inhalation RQ4H PRN (Reason: sob) Qty: 1 0RF Discontinued Xarelto 20 mg Tablet 20 mg PO DAILY Qty: 0 0RF atorvastatin 40 mg Tablet 40 mg PO BEDTIME Qty: 0 0RF quetiapine 100 mg Tablet 100 mg PO DAILY Qty: 0 0RF quetiapine 400 mg Tablet 400 mg PO BEDTIME Qty: 0 0RF trazodone 100 mg tablet 100 mg PO BEDTIME carbidopa-levodopa 25-100 mg tablet 1 tab PO TID lacosamide 50 mg tablet 100 mg PO BID metoprolol tartrate 25 mg tablet 25 mg PO BID Spiriva Respimat 1.25 mcg/actuation mist 2 puff inhalation DAILY metformin 500 mg tablet 500 mg PO BID Discharge Orders: Discharge Order (Routine); Ordered 04/30/24 Ordered By: Coretta Moreira Diet: Advance to usual diet Activity on Discharge: As tolerated Stand Alone Forms: Patient Portal Discharge page, Community Support Print Language: Venezuelan Care Plan Goals: Mood and Behavioral Stabilization Health Concerns: Mood and Behavioral Stabilization Plan of Treatment: Take medications as directed Pt declines referrals upon discharge Assessment: Denies SI,HI,AH, VH No symptoms of acute psychosis or ayan
== END 2024-04-30 15:45 | disposition home or self-care (01) | DRG 881 ==
LOC: HO.ED 22:26 → HO.PM5 04-22 13:50
PROVIDERS: Emergency Medicine; Physician Assistant Medical; Psychiatry & Neurology Psychiatry; Social Worker; Admitting Provider Clinical Nurse Specialist Psychiatric/Mental Health, Adult; Emergency Provider Emergency Medicine; Visit Provider Clinical Nurse Specialist Psychiatric/Mental Health, Adult
DX: F32.9 Major depressive disorder, single episode, unspecified (principal); R45.851 Suicidal ideations; I25.10 Atherosclerotic heart disease of native coronary artery without angina pectoris; F84.0 Autistic disorder; E03.9 Hypothyroidism, unspecified; Z95.5 Presence of coronary angioplasty implant and graft; E11.9 Type 2 diabetes mellitus without complications; R07.9 Chest pain, unspecified; E78.5 Hyperlipidemia, unspecified; F43.10 Post-traumatic stress disorder, unspecified; Z86.711 Personal history of pulmonary embolism; Z79.02 Long term (current) use of antithrombotics/antiplatelets; Z79.84 Long term (current) use of oral hypoglycemic drugs; Z79.890 Hormone replacement therapy; Z79.899 Other long term (current) drug therapy
CPT/HCPCS: 36415; 71046; 73130; 80053; 80061; 80307; 81001; 82565; 82607; 82746; 82947; 83036; 83690; 83735; 84439; 84443; 84484; 85025; 85379; 93005; 93306; 94660; 99285; J2270; S9485

== ENCOUNTER → 2024-04-21 16:25 | Outpatient (BNV) | payer OTHER, SELFPAY | PROVIDERS: Admitting Provider Clinical Nurse Specialist Psychiatric/Mental Health, Adult; Emergency Provider Emergency Medicine; Visit Provider Internal Medicine Cardiovascular Disease | DX: R07.9 Chest pain, unspecified (principal) | CPT/HCPCS: 93010 ==

== ENCOUNTER → 2024-04-21 16:25 | Outpatient (BNV) | payer OTHER, SELFPAY | PROVIDERS: Emergency Provider Emergency Medicine; Visit Provider Radiology Diagnostic Radiology | DX: R07.9 Chest pain, unspecified (principal) | CPT/HCPCS: 71046 ==

== ENCOUNTER 2024-04-22 13:40 | Outpatient (BNV) | payer OTHER, SELFPAY | END 2024-04-25 12:10 | PROVIDERS: Admitting Provider Clinical Nurse Specialist Psychiatric/Mental Health, Adult; Emergency Provider Emergency Medicine; Visit Provider Radiology Diagnostic Radiology | DX: M79.642 Pain in left hand (principal); W22.8XXA Striking against or struck by other objects, initial encounter | CPT/HCPCS: 73130 ==

== ENCOUNTER 2024-04-22 13:40 | Outpatient (BNV) | payer OTHER, SELFPAY | END 2024-04-25 07:00 | PROVIDERS: Admitting Provider Clinical Nurse Specialist Psychiatric/Mental Health, Adult; Emergency Provider Emergency Medicine; Visit Provider Internal Medicine Cardiovascular Disease | DX: R07.9 Chest pain, unspecified (principal); K44.9 Diaphragmatic hernia without obstruction or gangrene | CPT/HCPCS: 93306 ==

== ENCOUNTER 2024-04-22 13:40 | Outpatient (BNV) | payer OTHER, SELFPAY | END 2024-04-23 14:57 | PROVIDERS: Admitting Provider Clinical Nurse Specialist Psychiatric/Mental Health, Adult; Emergency Provider Emergency Medicine; Visit Provider Internal Medicine Cardiovascular Disease | DX: R07.9 Chest pain, unspecified (principal) | CPT/HCPCS: 93010 ==

== ENCOUNTER 2024-04-22 13:40 | Outpatient (BNV) | payer OTHER, SELFPAY | END 2024-04-29 11:11 | PROVIDERS: Admitting Provider Clinical Nurse Specialist Psychiatric/Mental Health, Adult; Emergency Provider Emergency Medicine; Visit Provider Internal Medicine Cardiovascular Disease | DX: R07.9 Chest pain, unspecified (principal) | CPT/HCPCS: 93010 ==

== ENCOUNTER → 2024-04-22 13:40 | Outpatient (BNV) | payer OTHER, SELFPAY | PROVIDERS: Admitting Provider Clinical Nurse Specialist Psychiatric/Mental Health, Adult; Emergency Provider Emergency Medicine; Visit Provider Clinical Nurse Specialist Psychiatric/Mental Health, Adult | DX: F32.2 Major depressive disorder, single episode, severe without psychotic features (principal); F43.11 Post-traumatic stress disorder, acute; F84.0 Autistic disorder; R07.9 Chest pain, unspecified; R45.851 Suicidal ideations | CPT/HCPCS: 90792; 99231; 99232 ==

== ENCOUNTER → 2024-04-22 13:40 | Outpatient (BNV) | payer OTHER, SELFPAY | PROVIDERS: Admitting Provider Clinical Nurse Specialist Psychiatric/Mental Health, Adult; Emergency Provider Emergency Medicine; Visit Provider Internal Medicine Cardiovascular Disease | DX: R07.9 Chest pain, unspecified (principal) | CPT/HCPCS: 99222 ==

== ENCOUNTER 2024-05-28 13:26 | Inpatient (IN) | payer OTHER, SELFPAY ==
--- OUTSIDE RECORDS SUMMARY | 2024-05-28 13:51 | XMS_ITS | Encounter Summary ---
Author Organization [facility] Address [address] [place] [address] Care Team Providers Care Organ Fixer Name Role Phone South Khanna MD Primary Care Provider [phone] Encounter Details Date Type Department Care Team (Late st Contact Info) Description 04/21/2019 Abstract [facility] [place] [address] South Khanna MD [facility] [address] [place] [id number] Social History Tobacco Use Types Packs/Day Years Used Date Smoking Tobacco: Every Day Cigarettes Smokeless Tobacco: Never Sex and Gender Information Value Date Recorded Sex Assigned at Not on file Legal Sex Male 1:01 AM EDT Gender Identity Not on file Sexual Orientation Not on file documented as of this encounter Plan of Treatment Not on file documented as of this encounter Goals Goal Patient Goal Type Associated Problems Recent Progress Patient-Stated? Author Blood Pressure < 140/90 Blood Pressure 126/64(04/14 8:50 AM EST) No Rossi Alcantara Note: Above is your goal for blood pressure control. You may be able to prevent, reduce or eliminate the medication required for your blood pressure by regular measurement of your blood pressure at home, since home readings are often more reliable than measurements at the doctor? s office. You can also improve your blood pressure by getting regular exercise, keeping a normal weight, reducing your sodium/salt intake to 2000 mg/day, reducing caffeine and by limiting your alcohol intake. Men should limit consumption to no more than 2 drinks per day (beer, wine, or mixed drinks) and women should limit to one drink per day. Follow the DASH diet, a diet low in fat, cholesterol, red meat, and sweets. It emphasizes fruits, vegetables, and low-fat dairy foods. The DASH diet also includes whole-grain products, fish, poultry, and nuts. Quit smoking / using tobacco Lifestyle No Mirtha Kapoor Note: Smoking can cause cancer, heart attacks, hardening of the arteries, bronchitis, emphysema, cough, shortness of breath, wrinkles, and premature aging and premature births. Some benefits of quitting smoking begin right away. Your risk of heart disease begins to decrease as soon as you quit. Your general health may also start to improve immediately because you are not irritating your lungs and more oxygen gets to your body organs. Your blood circulation is likely to get better. Other benefits may include fewer colds and lung infections as well as reduced risk of high blood pressure, stroke, and cancer. Interested in quitting smoking? Discuss medication options with your provider or contact the Quit To Win program at . Any insurance accepted. Quit smoking resources-http://WebAction.org HEMOGLOBIN A1C % < 7 Result Component 5.8(02/05/20 20 9:30 AM EDT) No Rossi Alcantara Note: Above is your goal for sugar control. Your risk for future diabetic complications such as blindness and amputation can be reduced by following your diabetic diet plan, and paying careful attention to self-monitoring your blood sugar and blood pressure at home. Please plan to check your blood sugar and blood pressure at the frequency suggested, and bring these numbers with you to your next scheduled visit. If you have difficulty reaching the goals which you have set for your diabetes your PCP can refer to one of our diabetes self-management support programs. A fasting blood sugar below 120 is ideal. documented as of this encounter Procedures * Due to [place] state law, this organization might not be sharing negative HIV tests. Procedure Name Priority Date/Time Associated Diagnosis Comments HEMOGLOBIN A1C Routine 03/26/2019 LIPID PANEL WITH REFLEX TO DIRECT LDL Routine 03/26/2019 documented in this encounter Results * Due to [place] state law, this organization might not be sharing negative HIV tests. * HEMOGLOBIN A1C (03/26/2019) Hemoglobin A1C 6.1 GLUCOSE MEAN VALUE 03/26/2019 us Unknown Provider LABORATORY Edited Result - Final * LIPID PANEL WITH REFLEX TO DIRECT LDL (03/26/2019) Cholesterol 137 HDL Cholesterol 30 Triglyceride 298 LDL Cholesterol 47 CHOL/HDL Ratio 03/26/2019 us Unknown Provider LABORATORY Final Result documented in this encounter Visit Diagnoses Not on filedocumented in this encounter Additional Health Concerns Infection Onset Date Last Indicated Resolved Time COVID-19 Rule-Out 02/05/2020 02/05/2020 02/06/2020 1:15 PM EDT documented as of this encounter Care Teams Organ Fixer Relationship Specialty Start Date End Date South Khanna MD PCP - General Internal Medicine 12/18/18 10/02/19 documented as of this encounter
--- OUTSIDE RECORDS SUMMARY | 2024-05-28 13:51 | XMS_ITS | Clinical Summary ---
Author Organization [facility] Address [address] [place] [address] Care Team Providers Care Parking Officer Name Role Phone None, Pcp [place] MD Primary Care Provider [phone] Allergies Active Allergy Reactions Criticality Noted Date Comments Amoxicillin Hives,Shortness of Breath High 03/16/2016 Aspirin Anaphylaxis,Hives,Sh o rtness of Breath High 01/09/2015 Aspirin, Buffered Anaphylaxis High 04/05/2016 Bee Venom Protein (Honey Bee) Swelling Medium 04/24/2014 Fish Containing Products Anaphylaxis High 09/03/2014 Per patient Per patient Latex Rash,Unknown Medium 11/07/2014 Ibuprofen Hives,Shortness of Breath High 03/16/2016 Nitroglycerin Anaphylaxis,Hives,Sh o rtness of Breath High 01/09/2015 Nsaids (Non-Steroidal Anti-Inflammatory Drug) Anaphylaxis,Hives High 04/14/2016 Other reaction(s): Hives; Resp Distress Other reaction(s): Hives; Resp Distress Poultry Anaphylaxis,Hives High 04/05/2016 Medications * This document contains information received from the source organization and may not represent a complete record from that organization. clopidogrel (PLAVIX) 75 mg tablet Take 75 mg by mouth every morning. Active traZODone (DESYREL) 100 MG tablet Take 100 mg by mouth at bedtime. Active atorvaSTATin (LIPITOR) 80 MG tablet Take 0.5 tablets (40 mg total) by mouth at bedtime. 30 tablet 5 6 Active QUEtiapine (SEROquel) 300 MG tablet Take 400 mg by mouth at bedtime. Active pantoprazole (PROTONIX) 40 MG EC tablet Take 40 mg by mouth every morning. (on an empty stomach) 0 6 Active tamsulosin (FLOMAX) 0.4 mg Cp24 24 hr capsule Take 0.4 mg by mouth at bedtime. 0 6 Active FREESTYLE LITE STRIPS Strp Use as directed 0 6 Active FREESTYLE 28 gauge lancets Use as directed 0 6 Active divalproex ER (DEPAKOTE ER) 500 MG 24 hr tablet Take 3 tablets (1,500 mg total) by mouth at bedtime. 15 tablet 0 6 Active metoprolol ER (TOPROL-XL) 100 MG 24 hr tablet Take 100 mg by mouth daily. Active carbidopa-levod opa SR (SINEMET CR) 25-100 mg 12 hr tablet Take 1 tablet by mouth every morning & every evening. 1/2 tab Active metFORMIN (GLUCOPHAGE) 1000 MG tablet Take 1,000 mg by mouth 2 times a day with breakfast & dinner. Active QUEtiapine (SEROquel) 50 MG tablet Take 50 mg by mouth daily. Active sertraline (ZOLOFT) 25 MG tablet Take 75 mg by mouth daily. Active albuterol 2.5 mg /3 mL (0.083 %) nebulizer solution Take 2.5 mg by nebulization 3 times a day. Active levothyroxine (SYNTHROID, LEVOXYL) 25 MCG tablet Take 25 mcg by mouth every morning. 0 Active insulin glargine (LANTUS) 100 unit/mL injection Inject 10 Units under the skin at bedtime. 5 Active insulin detemir (LEVEMIR) 100 unit/mL injection Inject 5 Units under the skin at bedtime. Active fluticasone propionate (FLONASE) 50 mcg/actuation nasal spray 1 spray into each nostril daily. 7 Active multivitamin with minerals tablet Take 1 tablet by mouth daily. 0 Active rivaroxaban (XARELTO) 20 mg Tab tablet Take 20 mg by mouth daily. Active carbamide peroxide (DEBROX) 6.5 % otic solution Administer 5 drops into the left ear every morning & every evening. 30 mL 1 Active Active Problems Problem Noted Date Diagnosed Date Hypoxia 10/15/2023 Chest pain 10/15/2020 Suicidal ideation 10/15/2020 History of venous thromboembolism 10/15/2020 Chest pain 03/17/2016 Diabetic neuropathy associat ed with type 2 diabetes mellitus 03/17/2016 Pulmonary nodule 03/17/2016 Smoker 03/17/2016 History of gastric ulcer 03/17/2016 Bradycardia 03/17/2016 Chest pain 03/14/2016 Iron (Fe) deficiency anemia 01/12/2015 Chest pain radiating to arm 01/09/2015 Presence of stent in coronar y artery in patient with coronary artery disease 01/09/2015 Type 2 diabetes mellitus 01/09/2015 Morbid obesity due to excess calories 01/09/2015 Malingering 01/09/2015 Bipolar 1 disorder 01/09/2015 Hypertension 01/09/2015 Chest pain of uncertain etiology 01/09/2015 Family History Medical History Relation Comments Coronary artery disease Father Heart attack Father Coronary artery disease Maternal Grandfather Coronary artery disease Maternal Grandmother Coronary artery disease Mother Coronary artery disease Paternal Grandfather Coronary artery disease Paternal Grandmother Relation Status Comments Father Maternal Grandfather Maternal Grandmother Mother Paternal Grandfather Paternal Grandmother Social History Tobacco Use Types Packs/Day Years Used Date Smoking Tobacco: Former Cigarettes 2 4 Smokeless Tobacco: Never Alcohol Use Standard Drinks/Week Comments No 0 (1 standard drink = 0.6 oz pur e alcohol) Sex and Gender Information Value Date Recorded Sex Assigned at Male 01/14/2019 2:03 PM EDT Legal Sex Male 3:08 PM EDT Gender Identity Male 01/14/2019 2:03 PM EDT Sexual Orientation Not on file Occupation Industry Job Start Date Job End Date disabled secondary MR Not on file Not on file Not on file Last Filed Vital Signs Vital Sign Reading Time Taken Comments Blood Pressure 129/72 02/24/2024 2:12 PM EST Pulse 90 02/24/2024 2:12 PM EST Temperature 36.6 ??C (97.8 ??F) 02/24/2024 5:50 AM ES T Respiratory Rate 18 02/24/2024 2:12 PM EST Oxygen Saturation 94% 02/24/2024 2:12 PM EST Inhaled Oxygen Concentration - - Weight 119 kg (262 lb 5.6 oz) 10/28/2023 10:51 P M EDT Height 177.8 cm (5' 10 ) 10/28/2023 10:51 PM EDT Body Mass Index 37.64 10/28/2023 10:51 PM EDT Plan of Treatment Health Maintenance Due Date Last Done Comments Urine Microalbumin 1976 Depression Screening 1980 Diabetic Eye Exam 1994 DTaP,Tdap,and Td Vaccines (1 - Tdap) 08/01/1995 CT Colonography 2021 Colonoscopy 2021 Colorectal Cancer Screening 2021 FIT 2021 FOBT 2021 Multitarget Stool DNA (Cologuard) 2021 Sigmoidoscopy 2021 Hemoglobin A1c 04/18/2022 10/16/2021, 06/0 10/2021, 03/12/2021, Additional history exists COVID-19 Vaccine ( - season) 2023 Influenza Vaccine (#1) 2023 , 01/02/2020, 12/12/2018, Additional history exists Lipid Panel 01/30/2025 01/31/2024, 06/0 10/2021, 03/12/2021, Additional history exists Blood Pressure 02/23/2025 02/24/2024 Pneumococcal Vaccine: Pediatrics (0 to 5 Years) and At-Risk Patients (6 to 64 Years) Aged Out 02/19/2016, 09/01/2013, 02/15/2011 No longer eligible based on patient's age to complete this topic Hepatitis C Screening Completed 01/17/2017 PSA Discontinued 06/27/2017 Prostate Cancer Screening Discontinued Meningococcal Vaccines Aged Out No lo nger eligible based on patient's age to complete this topic SDM Discontinued Procedures Procedure Name Priority Date/Time Associated Diagnosis Comments LIPID PANEL Routine 10/15/2020 6:17 AM EDT HEMOGLOBIN A1C Routine 02/20/2020 6:30 AM EST from Last 3 Months or Most Recently Relevant to Health Maintenance Results * (ABNORMAL) Lipid Panel (10/15/2020 6:17 AM EDT) Cholesterol 120(L) 125 - 200 mg/dL 10/15/2020 8:10 AM EDT [facility] Triglycerides 170(H) 55 - 150 mg/dL 10/15/2020 8:10 AM EDT [facility] Comment:Use non-HDL choleste rol or Apolipoprotein B to monitor cardiovascular risk and cholesterol-lowering therapy. HDL Cholesterol 29(L) 40 - 65 mg/dL 10/15/2020 8:10 AM EDT [facility] LDL Cholesterol 57 <130 mg/dL 10/15/2020 8:10 AM EDT [facility] Non-HDL Cholesterol 91 <190 mg/dL 10/15/2020 8:10 AM EDT [facility] Comment: Normal primary prevention ?<190 mg/dL High risk primary prevention ?? <160 mg/dL Secondary prevention ? <130 mg/dL High risk secondary prevention <100 mg/dL VLDL Cholesterol 34 8 - 71 mg/dL 10/15/2020 8:10 AM EDT [facility] Ratio Chol/HDL 4.1 2.0 - 5.0 10/15/2020 8:10 AM EDT [facility] Patient Fasting 8:10 AM EDT [facility] Blood Venipuncture / Unknown 10/15/2020 6:17 AM EDT 10/15/2020 7:04 AM EDT us Khurram Nunez MD LAB BLOOD ORDERABLES Final Res ult Performing Organization Address City/[facility]/ZIP Co de Phone Number [facility] [address] [place] [address] * Hemoglobin A1C (02/20/2020 6:30 AM EST) Hemoglobin A1C 5.8 4.0 - 6.0 % CONVERSION FROM [facility] Estimated Average Glucose 120 mg/dL CONVERSION F ROM [facility] 02/20/2020 6:30 AM EST 02/20/2020 7:06 AM EST us Larry Houston MD LAB BLOOD ORDERABLES Erica l Result CONVERSION FROM [employer] from Last 3 Months or Most Recently Relevant to Health Maintenance Insurance [facility] [address] [address] SENIOR Advance Directives * Full Code (Latest Code Status on File) Date Activated Date Inactivated Comments 10/15/2020 1:18 AM 02/23/2024 11:00 PM * Full Code Date Activated Date Inactivated Comments 02/16/2020 11:02 PM 10/15/2020 1:18 AM * Full Code Date Activated Date Inactivated Comments 02/16/2020 9:12 PM 02/16/2020 11:02 PM * Full Code Date Activated Date Inactivated Comments 03/17/2016 3:01 AM 03/18/2016 3:40 PM * Full Code Date Activated Date Inactivated Comments 03/15/2016 11:41 PM 03/16/2016 6:25 PM Care Teams Parking Officer Relationship Specialty Start Date End Date South Khanna MD [address] [place] [address] PCP - General 01/14/19 None, MD Baldemar 07/28/14
--- OUTSIDE RECORDS SUMMARY | 2024-05-28 13:51 | XMS_ITS | Patient Health Record ---
Author Organization [facility] Address [address] [place] [address] Care Team Providers Care Flatlock Sewing Machine Operator Name Role Phone Jus Avery Unavailable [phone] Reason For Referral No Information Encounters Encounter Location Date Provider Diagnosis [facility] [id number] [place] [address] 07/18/2023 Jus Avery [facility] [address] [place] [address] 10/04/2023 Jus Avery Plan Of Treatment No Information Insurance Providers Payer Name Payer Address Payer Phone Subscriber Number Group Number Insured Name Patient Relationship to Insured Coverage Start Date Coverage End Date [facility] [address] [place] [address] [id number] Charlie Rios Self - patient is the insured
--- OUTSIDE RECORDS SUMMARY | 2024-05-28 13:52 | XMS_ITS | Encounter Summary ---
Author Organization [facility] Address [address] [place] [address] Care Team Providers Care Entry Rep Name Role Phone None, Pcp Primary Care Provider Unavailabl e None, Pcp Unavailable Unavailable South Khanna MD Primary Care Provider [phone] Encounter Details Date Type Department Care Team (Late st Contact Info) Description 07/26/2014 Clinical Conversion Encounter Department of Cardiology [address] [place] [id number] Dylan Coe MD [address] [place] [id number] Social History Tobacco Use Types Packs/Day Years Used Date Smoking Tobacco: Never Assessed Sex and Gender Information Value Date Recorded Sex Assigned at Male 01/14/2019 2:03 PM EDT Legal Sex Male 3:08 PM EDT Gender Identity Male 01/14/2019 2:03 PM EDT Sexual Orientation Not on file documented as of this encounter Discharge Summaries * Dylan Coe MD - 10/26/2014 6:33 AM EDT [facility] Name: [facility] R # [id number] [facility] : [birth year] Age: 38 Sex: M DIS Shahla DISCHARGE SUMMARY Location: Room: [facility] Admit Date: 07/25/14 Disch Date: 07/26/14 cc: Dylan Coe MD NO _ DATE OF DISCHARGE: 07/26/2014 DISCHARGE DIAGNOSES: 1. Chest pain, ruled out for acute coronary syndrome. 2. The patient complained of having bright red blood per rectum. H&H stable. 3. Also complained of having sustained a fall and hitting his head. CAT scan negative for any acute intracranial pathology, seems to have magna cisterna or arachnoid cyst. 4. Also complained of having suicidal thoughts, seen by psychiatry and cleared for discharge. 5. History of coronary artery disease. 6. History of diabetes mellitus. 7. History of borderline personality disorder. 8. History of obstructive sleep apnea. 9. History of coronary artery disease. The patient says that he had an LA in 2008 and had a stent placed at that point. MEDICATIONS ON DISCHARGE: All the medications will stay the same, which include Lopressor 50 mg po bid, lisinopril 20 mg daily, Lipitor 40 mg daily, Flomax 0.4 mg po at bedtime, trazodone 300 mg po at bedtime, venlafaxine 150 mg daily, Neurontin 900 mg po tid, Ativan 0.5 mg tid prn anxiety or agitation, Plavix 75 mg po daily, Advair 250/50 one puff inhaled bid, melatonin 10 mg po at bedtime prn sleep, Abilify 20 mg daily, Seroquel 300 mg po at bedtime, Depakote 2 g po bid. Apparently, the patient is also on insulin, I am not sure about the doses and hence I would request the patient to continue with the same medications for his diabetes as he was taking prior to admission. CONSULTANTS INVOLVED: Psychiatrist. DIET: Heart healthy. FOLLOWUP APPOINTMENTS: PCP in 5 days. HOSPITAL COURSE: The patient is a 38-year-old male with above said medical history who came to the hospital after he called for EMS after he came out of the train going to [place] at a station and complained of severe left-sided pain with left arm numbness and radiation of the pain from the chest to the left arm. Apparently, the patient has had similar episode in the past as well when he called from the train station for his chest pain. His EKG was normal and his cardiac enzymes are negative. He was admitted and ruled out for acute coronary syndrome on a tele monitor bed. There, he also complained of having suicidal ideation and psychiatry was consulted. It was felt that the patient has a history of malingering and does not warrant inpatient psychiatric evaluation or treatment. Then, the patient complained of having bright red blood per rectum. He refused a rectal exam and hence H&H was done every 6 hours. The patient says that he had a colonoscopy 6 years ago which was [facility] Name: [facility] MR # [id number] [facility] D/C Date: 07/26/14 DISCHARGE SUMMARY continued clean. Then later in the day, he called the nursing staff saying that he had sustained a fall and hit his head. A CAT scan was done to rule out acute intracranial pathology with mentioned diagnosis or possibility of arachnoid cyst. After all this, at this point, the patient feels himself and has been told that all the tests have been negative and hence he will be discharged. He was requesting for another day, but negative to be discharged. PHYSICAL EXAMINATION: The patient's blood pressure was 108/68 with a pulse rate of 55-60, temperature 97.8, saturating 94% on room air. Central nervous system: Alert, responds to all questions appropriately, ambulating in the corridor without discomfort. Cardiovascular: S1, S2 appeared normal to me. No murmurs. Chest: Clear to auscultation bilaterally. Abdomen was soft, nontender, no palpable organomegaly. Extremities: Nonedematous joints. Skin: No erythema. Active. The patient says likely and seeking more hospital days in the past as well. The last time Dr. Tejeda had got in touch with his panel machine operator and apparently he has had cardiac catheterization on 9 occasions, last one being as late as November of last year and at that time, it was nonobstructive coronary artery disease. Dictated by: Dylan Coe MD ELECTRONICALLY SIGNED 07/30/14 1507 T: [id number] [id number] //ivnm// //add1// //add3// //add2// [id number] documented in this encounter Progress Notes * Dylan Coe MD - 11/24/2014 7:51 AM EDT [facility] Name: [facility] MR # [id number] : [birth year] Age: 38 Sex: M PROGRESS NOTE ADM IN Location: Room: [facility] cc: Dylan Coe MD -- Subjective Date/Time Note Initiated NOTE DATE: 07/25/14 TIME: 1505 Review of Systems Events since last encounter patient says he is having bright blood per rectum; denies any abdominal pain and says this has happened first time in life General Denies: Chills, Night sweats. Pulmonary Denies: Dyspnea, Cough. Cardiovascular Denies: Chest Pain, Palpitations, Orthnopnea. Gastrointestinal Denies: Nausea, Vomiting, Abdominal Pain. Objective Exam Vital Signs and I& O Vital Signs Result Date Time Temp 97.3 07/25 1223 Pulse Ox 98 07/25 0911 B/P 117/76 04/18 0911 O2 Flow Rate 2 07/25 09 Pulse 77 07/25 0911 Resp 18 07/25 0911 07/25 0700 Intake Total Output Total Balance General Appearance Alert, Oriented X3, Cooperative, No Acute Distress Lungs Clear to Auscultation Neck No JVD Cardiovascular Regular Rate, Normal S1, Normal S2 Abdomen Normal Bowel Sounds, Soft, No Tenderness, No Hepatospenomegaly, refused rectal exam Extremities No Edema Neurological Normal Speech Results LAB/[facility] & RAD Laboratory Tests 07/24 07/25 175 1312 Hematology WBC (3.8 - 10.5 K/ul) 6.1 Hgb (12.7 - 16.7 g/dl) 10.9 10.7 Hct (38.1 - 50.1 %) 33.8 34.4 Plt Count (150 - 450 K/ul) 297 Laboratory Tests 07/24 1753 Coagulation PT (12.2 - 14.2 SECONDS) 13.9 PTT (22.5 - 35.5 SECONDS) 27.6 Laboratory Tests 07/24 07/24 07/25 07/25 07/25 175 1754 0237 0708 1000 Chemistry Sodium (134 - 145 mmol/L) 136 Potassium (3.5 - 5.1 mmol/L) 4.3 Chloride (96 - 108 mmol/L) 100 Carbon Dioxide (22 - 32 mmol/L) 23 Anion Gap (6 - 16) 13 BUN (6 - 23 mg/dL) 15 Creatinine (0.5 - 1.2 mg/dL) 0.7 Kidney Disease Stage (>60 ml/min) > 60 BUN/Creatinine Ratio (6 - 25 RATIO) 21 Glucose Sample Type RANDOM Glucose (74 - 118 mg/dL) 78 POC Glucose (74 - 118) 83 Est Mean Plasma Glucose (mg/dl) 126 Hemoglobin A1c (4.4 - 6.3 %) 6.0 Calcium (8.5 - 10.5 mg/dL) 8.5 Troponin T (<0.03 ng/ml) < 0.01 < 0.01 < 0.01 Specimen Hemolysis Normal Coagulation PT (12.2 - 14.2 SECONDS) 13.9 INR (0.90 - 1.10) 1.09 PTT (22.5 - 35.5 SECONDS) 27.6 Hematology WBC (3.8 - 10.5 K/ul) 6.1 RBC (4.1 - 5.6 M/ul) 4.38 Hgb (12.7 - 16.7 g/dl) 10.9 Hct (38.1 - 50.1 %) 33.8 MCV (82 - 98 fl) 77.2 MCH (25 - 35 pg) 24.9 MCHC (33 - 36 g/dl) 32.2 RDW (11.5 - 14.5 %) 18.0 Plt Count (150 - 450 K/ul) 297 MPV (6 - 14 fl) 9.9 Neut Rel Value (50 - 70 %) 49 Lymph Rel Value (25 - 40 %) 38 Walworth Rel Value (4 - 12 %) 10 Eos Rel Value (0 - 3 %) 2 Baso Rel Value (0 - 2 %) 1 Absolute Lymphs (auto) (1.5 - 4.0 K/ul) 2.3 Absolute Neutrophils (2.2 - 8.6 K/ul) 3.0 Absolute Monocytes (0.16 - 1.26 K/ul) 0.6 Absolute Eosinophils (0.15 - 0.30 K/ul) 0.1 Absolute Basophils (0.0 - 0.21 K/ul) 0.0 07/25 07/25 1048 1312 Chemistry POC Glucose (74 - 118) 139 Hematology Hgb (12.7 - 16.7 g/dl) 10.7 Hct (38.1 - 50.1 %) 34.4 Assessment/Plan Problem List Medical Problems Chest pain A&P: A 38-year-old male with a past medical history of coronary artery disease, borderline personality disorder and diabetes now with chest pain c/o being suicidal and now BRBPR 1. Chest pain-ruled out for ACS; dc tele 2. BRBPR: pt refused rectal exam; had a colonoscopy 6 years ago which was clear. will do serial h/h; pt flushed the stool away before anybody could see it. 2. 3. For his bipolar disorder. he had voiced suicidal thoughts. seen by psych- cleared-dc 1:1 4. He is a full code. 5. DVT prophylaxis-ambulate Report Electronically Signed By: Dylan Coe MD Electronic Signature Date/Time: 07/25/14 1513 * Dylan Coe MD - 11/16/2014 9:49 AM EDT [facility] Name: [facility] MR # [id number] [facility] : [birth year] Age: 38 Sex: M ADM Shahla PATIENT CARE REFERRAL PAGE 1 Location: Room: [facility] Admit Date: 07/25/14 - cc: Dylan Coe MD _ PAGE 1 PATIENT CARE REFERRAL DISCHARGE INFORMATION Disposition Date: 07/26/14 Discharge Diagnosis: Medical Problems Chest pain *VTE Diagnosis? Pt Diagnosed with VTE? No *Stroke Diagnosis? Pt Diagnosed with Stroke? No DIET & ACTIVITY Diet Cardiac, Diabetic Diet Activity As Tolerated FOLLOW UP/ORDERS Follow Up With: Primary Care in 5 Days OXYGEN/DME/SUPPLIES *Home O2: Does patient need Home O2? No CERTIFICATION When Applicable - OR documented in this encounter Plan of Treatment Not on file documented as of this encounter Visit Diagnoses Not on filedocumented in this encounter Care Teams Entry Rep Relationship Specialty Start Date End Date None, MD Baldemar PCP - General 07/28/14 01/13/19 South Khanna MD [address] [place] [id number] PCP - General 01/14/19 Baldemar Scott MD 07/28/14 documented as of this encounter
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
--- OUTSIDE RECORDS SUMMARY | 2024-05-28 13:52 | XMS_ITS | Encounter Summary ---
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 Phone None, Pcp Primary Care Provider Unavailabl e None, Pcp Unavailable Unavailable South Khanna MD Primary Care Provider Encounter Details Date Type Department Care Team (Late st Contact Info) Description 07/26/2014 Clinical Conversion Encounter [facility], [address] [address] Lilia Reynolds MD [address] [place] [address] Social History Tobacco Use Types Packs/Day Years Used Date Smoking Tobacco: Never Assessed Sex and Gender Information Value Date Recorded Sex Assigned at Male 01/14/2019 2:03 PM EDT Legal Sex Male 3:08 PM EDT Gender Identity Male 01/14/2019 2:03 PM EDT Sexual Orientation Not on file documented as of this encounter Consult Notes * Lilia Reynolds MD - 10/26/2014 6:33 AM EDT [facility] Name: HAYWOOD,LILIA [facility] R # [id number] [facility] : [birth year] Age: 38 Sex: M DIS Shahla CONSULTATION REPORT Location: [facility] Room: [facility] Admit Date: 07/26/14 - 07/29/14 cc: Skye Daley MD _ DATE OF CONSULTATION: 07/26/2014 CARDIOLOGY CONSULTATION HISTORY OF PRESENT ILLNESS: A 38-year-old man admitted on 07/26/2014. He is admitted because of chest pain. He was discharged from [facility] earlier on July 26. He had been there for chest pain. He did not have evidence for myocardial infarction. He was evidently at the train station to go home and re-developed chest discomfort. He describes pain in his anterior chest going to his left arm associated with shortness of breath. The discomfort became severe and was a 10 on a scale of 1-10. It also radiated up into his jaw. He was transported to the Emergency Room where he was seen at 11:55 a.m., at which time, he was afebrile, heart rate 70, blood pressure 150/67, respiratory rate 18, oxygen saturation 96%. The discomfort, I gather, lasted for several hours. He is a little bit vague about that. When I saw him, he had discomfort, but said it had dissipated and recommenced. He says if he climbed a flight of stairs, he gets discomfort in his chest but that is completely different from what he has now. He had been hospitalized on July 25, and apparently had unremarkable electrocardiograms. He had 4 troponins all less than 0.01. He has a history of ischemic heart disease. He tells me he has had 4 MIs. He says he had stenting of the right coronary artery in 2004. He does not think he has had a cardiac catheterization since then. He has type 2 diabetes. He is overweight. He had morbid obesity, but went through a gastric bypass and has lost a fair amount of weight. He does have hypertension and hyperlipidemia. He quit smoking a year ago. He has a strong family history of vascular disease. He does not have a history of heart failure or valvular heart disease. He has not had DVT or pulmonary emboli. He does not have claudication or peripheral arterial disease. He has had sleep apnea and does use a CPAP mask. He does not have COPD. He has not had renal insufficiency. MEDICATIONS: Prior to hospitalization, he is on the following medications (according to the list): Metoprolol 50 mg twice a day, tamsulosin 0.4 mg once a day, gabapentin 900 mg 3 times a day, Advair one inhalation twice a day, Depakote 500 mg twice a day, Plavix 75 mg a day, Seroquel 300 mg a day, melatonin, Ativan, lisinopril 20 mg a day, atorvastatin 40 mg a day, Abilify 20 mg a day, isosorbide mononitrate 20 mg once a day. As usual, there is some uncertainty. ALLERGIES: ASPIRIN AND NITROGLYCERIN. FAMILY HISTORY: Significant for the fact that both the parents had ischemic [facility] Name: LILIA HAYWOOD [facility] MR # [id number] CONSULTATION continued Admit Date: 07/26/14 heart disease as has his brother who is 2 years older than him. SOCIAL HISTORY: Lives alone. He is disabled. Quit smoking recently. No alcohol. REVIEW OF SYSTEMS: No fever. Appetite okay. Energy level is depressed. Not able to do as much as he could a year ago. No headache. Mild joint symptoms. Does get up at night to urinate. Coughs frequently. No wheezing. No adenopathy. PHYSICAL EXAMINATION: He is a young man in no immediate distress, afebrile, heart rate 66, blood pressure 125/74, respiratory rate 20, weight is 128.8 kg. The skin is unremarkable. HEENT exam is unremarkable. The neck veins are not distended. The carotid pulses are normal, no bruits. No thyromegaly. The lungs are resonant to percussion, clear on auscultation. Chest nontender. Nondisplaced PMI. Auscultation of the heart shows a regular rhythm with normal first and second heart sound, no murmur. Abdomen nontender without masses or organomegaly. Extremities show no cyanosis or edema. The pedal pulses are palpable. Electrocardiogram shows sinus rhythm and is within normal limits. An AP chest x-ray is unremarkable. LABORATORY DATA: Significant for another troponin less than 0.01, sodium 138, potassium 4.5, bicarbonate 22, anion gap 13, calcium 8.6, glucose 81, BUN 15, creatinine 0.6. Cholesterol 150, HDL 29, triglycerides 351, LDL not calculated. Protime 13, INR 1, PTT 26.2. White count 6.8 with an H&H of 10.7 and 33.7, and a platelet count of 306,000. The red cell indices are microcytic. IMPRESSIONS: 1. Chest pain of unclear etiology. 2. Apparent history of coronary artery disease. a. Reported 4 previous myocardial infarctions. b. Percutaneous coronary intervention of the right coronary artery in 2004 (? 2008). 3. Morbid obesity; status post gastric bypass. 4. Diabetes. 5. Hyperlipidemia. 6. Hypertension. 7. Very recent ex-smoker. 8. Sleep apnea. 9. Microcytic anemia. 10. History of depression. This is a 38-year-old man with chest symptoms. He does not appear to have an acute coronary syndrome, but he does have ischemic heart disease. Initial cardiac tests are negative as they were at [facility]. Given the fact that he is immediately back in the hospital, we can do a stress test. If his troponin rises, would recommend he go for a cardiac catheterization. He is on reasonable medication. He has anemia which is not enough to give him the [facility] Name: LILIA HAYWOOD [facility] MR # [id number] CONSULTATION continued Admit Date: 07/26/14 symptoms, but might warrant looking into. I would not change his prehospital medications at this time. I will follow. Dictated by: Lilia Reynolds M.D. ELECTRONICALLY SIGNED 08/20/14 1447 T: [id number] //ivnm// //add1// //add3// //add2// [id number] documented in this encounter Plan of Treatment Not on file documented as of this encounter Procedures Procedure Name Priority Date/Time Associated Diagnosis Comments POCI GLUCOSE Routine 07/26/2014 8:47 PM EDT TROPONIN T Routine 07/26/2014 7:46 PM EDT POCI GLUCOSE Routine 07/26/2014 4:35 PM EDT DRUG SCREEN/COMPREHENSIVE, URINE ([facility]) Routine 07/26/2014 4:30 PM EDT ECG 12-LEAD Routine 07/26/2014 4:21 PM EDT ECG 12-LEAD Routine 07/26/2014 1:00 PM EDT XR PORTABLE CHEST 1 VW Routine 07/26/2014 12:49 PM EDT ECG 12-LEAD Routine 07/26/2014 12:02 PM EDT LIPID PANEL Routine 07/26/2014 11:55 AM EDT APTT Routine 07/26/2014 11:55 AM EDT PROTIME-INR Routine 07/26/2014 11:55 AM EDT CBC AND DIFFERENTIAL Routine 07/26/2014 11:55 AM EDT TROPONIN T Routine 07/26/2014 11:55 AM EDT LDL CHOLESTEROL, DIRECT Routine 07/26/2014 11:55 AM EDT BASIC METABOLIC PANEL Routine 07/26/2014 11:55 AM EDT HEMOGLOBIN A1C Routine 07/26/2014 11:00 AM EDT POCI GLUCOSE Routine 07/26/2014 7:49 AM EDT CBC AND DIFFERENTIAL Routine 07/26/2014 6:00 AM EDT BASIC METABOLIC PANEL Routine 07/26/2014 6:00 AM EDT documented in this encounter Results * (ABNORMAL) POCT Glucose (07/26/2014 8:47 PM EDT) Glucose, POC 145(H) 74 - 118 CONVERS ION FROM [employer] Comment:Resulted using [employer] POC Software 07/26/2014 8:47 PM EDT 07/26/2014 8:56 PM EDT Ayaan Torres MD POCT ORDERABLES - DEVICE Final Result Performing Organization Address [facility] de Phone Number CONVERSION FROM [employer] * Troponin T (07/26/2014 7:46 PM EDT) Troponin T < 0.01 <0.03 ng/ml CONVERSION FROM [employer] Comment: Troponin-T: <0.03 ng/ml - Negative 0.03 to 0.09 ng/ml - Indeterminate >0.09 ng/ml - Positive for acute myocardial damage Blood specimen (specimen) 07/26/2014 7:46 PM EDT 07/26/2014 7:46 PM EDT Ayaan Torres MD LAB BLOOD ORDERABLES Fin al Result CONVERSION FROM [employer] * (ABNORMAL) POCT Glucose (07/26/2014 4:35 PM EDT) Glucose, POC 175(H) 74 - 118 CONVERS ION FROM [employer] Comment:Resulted using [employer] POC Software 07/26/2014 4:35 PM EDT 07/26/2014 4:43 PM EDT Ayaan Torres MD POCT ORDERABLES - DEVICE Final Result Performing Organization Address [facility]/State/ZIP Co de Phone Number CONVERSION FROM [employer] * (ABNORMAL) Drug Screen/Comprehensive, Urine (07/26/2014 4:30 PM EDT) Pathologist [facility] Ethanol, Urine NEGATIVE NEGATIVE CONVE RSION FROM [employer] Amphetamines, Urine NEGATIVE NEGATIVE CONVERSION FROM [employer] Barbiturates Screen, Urine POSITIVE(H) NEGATIVE CONVERSION FROM [employer] Benzodiazepine Screen, Urine NEGATIVE NEGATIVE CONVERSION FROM [employer] Cocaine Metabolism, Urine NEGATIVE NEGATIVE CONVERSION FROM [employer] Methadone Qual, Urine NEGATIVE NEGATIVE CONVERSION FROM [employer] Opiates Screen,Urine Random POSITIVE(H) NEGATIVE CONVERSION FROM [employer] Oxycontin Screen, Urine NEGATIVE NEGATIVE CONVERSION FROM [employer] PROPOXYPHENE-UR (Conversion) NEGATIVE NEGATIVE CONVERSION FROM [employer] Cannabinoids Screen, Urine NEGATIVE NEGATIVE CONVERSION FROM [employer] Buprenorphine,Uri ne NEGATIVE NEGATIVE CONVERSION FROM [employer] Creatinine, Random Urine 197.2 mg/dL CONVERSION FROM [employer] Urine specimen (specimen) 07/26/2014 4:30 PM EDT 07/26/2014 4:30 PM EDT Ayaan Torres MD URINE ORDERABLES Final R esult Performing Organization Address [facility] Co de Phone Number CONVERSION FROM [employer] * ECG 12 lead (07/26/2014 4:21 PM EDT) 07/26/2014 4:21 PM EDT Narrative CONVERSION FROM [employer] - 07/28/2014 9:45 AM EDT [facility]. ?Name: ??LILIA HAYWOOD ?MR # ?? [id number] EKG REPORT ? PCP: ??NO MD ?Ord MD: ??Jc Inman M.D. ?: ??[birth year] ??Age: 38 ?? Sex: M ? ADM Shahla ?Location: ??*ST1 ?S148-A ?Exam Date: ??07/26/14 cc: ??Lilia Reynolds M.D. ? Jc Inman M.D. ? Jc Inman M.D. Test Reason : CHEST PAIN Blood Pressure : / mmHG Vent. Rate : 058 BPM ? Atrial Rate : 058 BPM ?? P-R Int : 158 ms ?QRS Dur : 096 ms ?QT Int : 392 ms ? P-R-T Axes : 020 021 045 degrees ?? QTc Int : 384 ms Sinus bradycardia Otherwise normal ECG When compared with ECG of 26-JUL-2014 13:00, (Unconfirmed) No significant change was found Confirmed by Skye Reynolds Michael ([id number]) on 07/28/2014 9:45:35 AM Referred By: ? Confirmed By:Lilia Reynolds M.D. Procedure Note Lilia Reynolds MD - 11/08/2014 [facility]. Name: LILIA HAYWOOD MR # [id number] EKG REPORT PCP: SWAPNA Baldwin MD: Jc Inman M.D. : [birth year] Age: 38 Sex:M ADMINo Location: [address] Exam Date: 07/26/14 cc: Skye Daley William, M.D. William Wilson, M.D. Test Reason : CHEST PAIN Blood Pressure : / mmHG Vent. Rate : 058 BPM Atrial Rate : 058 BPM P-R Int : 158 ms QRS Dur : 096 ms QT Int : 392 ms P-R-T Axes : 020 021 045 degrees QTc Int : 384 ms Sinus bradycardia Otherwise normal ECG When compared with ECG of 26-JUL-2014 13:00, (Unconfirmed) No significant change was found Confirmed by Skye Reynolds Michael ([id number]) on 07/28/2014 9:45:35 AM Referred By: Confirmed By:Lilia Reynolds M.D. us Jc Inman MD ECG ORDERABLES Final Result CONVERSION FROM [employer] * ECG 12 lead (07/26/2014 1:00 PM EDT) 07/26/2014 1:00 PM EDT Narrative CONVERSION FROM [employer] - 07/28/2014 9:42 AM EDT [facility] ?Name: ??LILIA HAYWOOD ?MR # ?? [id number] EKG REPORT ? PCP: ??NO MD ?Ord : ??Rian Sinclair M.D. ?: ??[birth year] ??Age: 38 ?? Sex: M ? ADM Shahla ?Location: ??*ST1 ?S148-A ?Exam Date: ??07/26/14 cc: ??Lilia Reynolds M.D. ? Rian Sinclair M.D. ? Rian Sinclair M.D. Test Reason : CHEST PAIN Blood Pressure : / mmHG Vent. Rate : 058 BPM ? Atrial Rate : 058 BPM ?? P-R Int : 158 ms ?QRS Dur : 092 ms ?QT Int : 386 ms ? P-R-T Axes : 018 017 044 degrees ?? QTc Int : 378 ms Sinus bradycardia Otherwise normal ECG When compared with ECG of 26-JUL-2014 12:02, (Unconfirmed) No significant change was found Confirmed by Skye Reynolds Michael ([id number]) on 07/28/2014 9:42:46 AM Referred By: ? Confirmed By:Lilia Reynolds M.D. Procedure Note Lilia Reynolds MD - 11/08/2014 [facility] Name: LILIA HAYWOOD MR # [id number] EKG REPORT PCP: NO MD Baldwin MD: Rian Sinclair M.D. : [birth year] Age: 38 Sex:M ADMINo Location: [place] [id number]-[id number] Exam Date: 07/26/14 cc: Skye Daley Jeffrey, M.D. Jeffrey Soderman, M.D. Test Reason : CHEST PAIN Blood Pressure : / mmHG Vent. Rate : 058 BPM Atrial Rate : 058 BPM P-R Int : 158 ms QRS Dur : 092 ms QT Int : 386 ms P-R-T Axes : 018 017 044 degrees QTc Int : 378 ms Sinus bradycardia Otherwise normal ECG When compared with ECG of 26-JUL-2014 12:02, (Unconfirmed) No significant change was found Confirmed by Skye Reynolds, Lilia ([id number]) on 07/28/2014 9:42:46 AM Referred By: Confirmed By:Lilia Reynolds M.D. us Rian Sinclair MD ECG ORDERABLES Final Resu lt CONVERSION FROM [employer] * XR Portable Chest 1 Vw (07/26/2014 12:49 PM EDT) Anatomical Region Laterality Modality Chest Radiographic Janna ging 07/26/2014 12:4 9 PM EDT Narrative 07/26/2014 12:49 PM EDT ?EXAM DESCRIPTION: ??CHEST PORTABLE FRONTAL VIEW ? CLINICAL HISTORY: ??Chest pain ?COMPARISON: ??07/24/2014 and 02/26/2014 ?TECHNIQUE: ??AP upright portable image at 12:15 p.m. ?FINDINGS: ??Mediastinal, don and cardiac contours are normal in size ? for portable technique. ?Lung volumes are moderate. ??There is an indistinct left heart border ?raising the question of infiltrate or atelectasis involving the ?lingular segment of left upper lobe. ??Otherwise, lungs are clear. ?Both costophrenic angles are sharp. ?IMPRESSION: ??Moderate degree of inspiration. ?Indistinct left heart border likely related to atelectasis or acute ?infiltrate within lingular segment of left upper lobe. Procedure Note Anug Merida MD - 11/17/2014 EXAM DESCRIPTION: CHEST PORTABLE FRONTAL VIEW CLINICAL HISTORY: Chest pain COMPARISON: 07/24/2014 and 02/26/2014 TECHNIQUE: AP upright portable image at 12:15 p.m. FINDINGS: Mediastinal, don and cardiac contours are normal in size for portable technique. Lung volumes are moderate. There is an indistinct left heart border raising the question of infiltrate or atelectasis involving the lingular segment of left upper lobe. Otherwise, lungs are clear. Both costophrenic angles are sharp. IMPRESSION: Moderate degree of inspiration. Indistinct left heart border likely related to atelectasis or acute infiltrate within lingular segment of left upper lobe. us Rian Sinclair MD IMG DIAGNOSTIC IMAGING ORD ERABLES Final Result * ECG 12 lead (07/26/2014 12:02 PM EDT) 07/26/2014 12:0 2 PM EDT Narrative CONVERSION FROM [employer] - 07/28/2014 9:42 AM EDT [facility]. ?Name: ??LILIA HAYWOOD ?MR # ?? [id number] EKG REPORT ? PCP: ??NO MD ?Ord MD: ??Rian Sinclair M.D. ?: ??[birth year] ??Age: 38 ?? Sex: M ? ADM Shahla ?Location: ??*ST1 ?S148-A ?Exam Date: ??07/26/14 cc: ??Lilia Reynolds M.D. ? Rian Sinclair M.D. ? Rian Sinclair M.D. Test Reason : CHEST PAIN Blood Pressure : / mmHG Vent. Rate : 060 BPM ? Atrial Rate : 060 BPM ?? P-R Int : 156 ms ?QRS Dur : 094 ms ?QT Int : 386 ms ? P-R-T Axes : -04 014 044 degrees ?? QTc Int : 386 ms Normal sinus rhythm Normal ECG When compared with ECG of 25-JUL-2014 20:39, No significant change was found Confirmed by Skye Reynolds Michael ([id number]) on 07/28/2014 9:42:39 AM Referred By: ??RONNIE ? Confirmed By:Lilia Reynolds M.D. Procedure Note Lilia Reynolds MD - 11/08/2014 [facility]. Name: LILIA HAYWOOD MR # [id number] EKG REPORT PCP: NO MD Ord MD: Rian Sinclair M.D. : [birth year] Age: 38 Sex:M ADMINo Location: *[place] [address]-A Exam Date: 07/26/14 cc: Skye Daley Jeffrey, M.D. Jeffrey Soderman, M.D. Test Reason : CHEST PAIN Blood Pressure : / mmHG Vent. Rate : 060 BPM Atrial Rate : 060 BPM P-R Int : 156 ms QRS Dur : 094 ms QT Int : 386 ms P-R-T Axes : -04 014 044 degrees QTc Int : 386 ms Normal sinus rhythm Normal ECG When compared with ECG of 25-JUL-2014 20:39, No significant change was found Confirmed by Skye Reynolds, Lilia ([id number]) on 07/28/2014 9:42:39 AM Referred By: RONNIE Confirmed By:Lilia Reynolds M.D. Rian Sinclair MD ECG ORDERABLES Final Resu lt CONVERSION FROM [facility] * (ABNORMAL) CBC and Differential (07/26/2014 11:55 AM EDT) WBC 6.8 3.8 - 10.5 K/ul CONVERSION FROM [facility] RBC 4.25 4.1 - 5.6 M/ul CONVERSION FROM [facility] Hemoglobin 10.7(L) 12.7 - 16.7 g/dl CONVERSION FROM [facility] Hematocrit 33.7(L) 38.1 - 50.1 % CONVERSION FROM [facility] MCV 79.3(L) 82 - 98 fl CONVERSIO N FROM [facility] [facility] MCH 25.2 25 - 35 pg CONVERSIO N FROM [facility] MCHC 31.8(L) 33 - 36 g/dl CONVERSION FROM [facility] [facility] RDW 18.7(H) 11.5 - 14.5 % CONVERSION FROM [facility] Platelet Count 306 150 - 450 K/ul CONVERSION FROM [facility] MPV 10.5 6 - 14 fl CONVERSION FROM [facility] Neutrophil 45(L) 50 - 70 % CONVERSIO N FROM [employer] [facility] Absolute Gran Ct 3.0 2.2 - 8.6 K/ul CONVERSION FROM [employer] [facility] Lymphocyte 38 25 - 40 % CONVERSIO N FROM [facility] Absolute Lymph Ct 2.6 1.5 - 4.0 K/ul CONVERSION FROM [facility] Monocyte 15(H) 4 - 12 % CONVERSION FROM [facility] Absolute Baker Ct 1.0 0.16 - 1.26 K/ul CONVERSION FROM [facility] Eosinophil 2 0 - 3 % CONVERSIO N FROM [facility] Absolute Eos Ct (Conversion) 0.1(L) 0.15 - 0.30 K/ul CONVERSION FROM [facility] Basophil 0 0 - 2 % CONVERSION FROM [facility] Absolute Baso Ct (Conversion) 0.0 0.0 - 0.21 K/ul CONVERSION FROM [employer] Blood specimen (specimen) 07/26/2014 11:55 AM EDT 07/26/2014 12:09 PM EDT Ayaan Torres MD LAB BLOOD ORDERABLES Fin al Result Performing Organization Address City/[facility] Co de Phone Number CONVERSION FROM [employer] * APTT (07/26/2014 11:55 AM EDT) PTT 26.2 22.5 - 35.5 SECONDS CONVERSION FROM [employer] [facility] Blood specimen (specimen) 07/26/2014 11:55 AM EDT 07/26/2014 12:09 PM EDT Ayaan Torres MD LAB BLOOD ORDERABLES Fin al Result Performing Organization Address City/[facility] de Phone Number CONVERSION FROM [employer] * ProTime-INR (07/26/2014 11:55 AM EDT) Prothrombin Time 13.0 12.2 - 14.2 SECONDS CONVERSION FROM [facility] INR 1.00 0.90 - 1.10 CONVERSI ON FROM [facility] [facility] Blood specimen (specimen) 07/26/2014 11:55 AM EDT 07/26/2014 12:09 PM EDT Ayaan Torres MD LAB BLOOD ORDERABLES Fin al Result CONVERSION FROM [employer] * LDL Cholesterol, Direct (07/26/2014 11:55 AM EDT) Direct LDL Cholesterol 85 <130 mg/dL CONVERSION FROM [employer] [facility] Blood specimen (specimen) 07/26/2014 11:55 AM EDT 07/26/2014 12:09 PM EDT Ayaan Torres MD LAB BLOOD ORDERABLES Fin al Result CONVERSION FROM [facility] [facility] * (ABNORMAL) Lipid Panel (07/26/2014 11:55 AM EDT) Cholesterol 150 130 - 200 mg/dL CONVERSION FROM [facility] Triglycerides 351(H) <200 mg/dL CONVERSION FROM [facility] [facility] Comment: Use non-HDL cholesterol or Apolipoprotein B to monitor cardiovascular risk and cholesterol lowering therapy. HDL Cholesterol 29(L) 40 - 65 mg/dL CONVERSION FROM [facility] LDL Cholesterol TNP <130 mg/dl CONVERSION FROM [facility] [facility] Comment: NO CALCULATED LDL CAN BE PERFORMED WHEN TRIG >250. A DIRECT LDL HAS BEEN ORDERED. Non-HDL Cholesterol 121 <190 mg/dL CONVERSION FROM [facility] Comment: Normal primary Prevention ?<190 mg/dl High risk primary prevention ? <160 mg/dl Secondary prevention ? <130 mg/dl High risk secondary prevention ?? <100 mg/dl VLDL Cholesterol TNP mg/dl CON VERSION FROM [employer] Comment:NO CALCULATED VLDL C AN BE PERFORMED WHEN TRIG >250. Coronary Risk Interpretation 5.2(H) 2.0 - 5.0 CONVERSION FROM [employer] Blood specimen (specimen) 07/26/2014 11:55 AM EDT 07/26/2014 12:09 PM EDT Ayaan Torres MD LAB BLOOD ORDERABLES Fin al Result CONVERSION FROM [employer] * Troponin T (07/26/2014 11:55 AM EDT) Troponin T < 0.01 <0.03 ng/ml CONVERSION FROM [facility] Comment: Troponin-T: <0.03 ng/ml - Negative 0.03 to 0.09 ng/ml - Indeterminate >0.09 ng/ml - Positive for acute myocardial damage Blood specimen (specimen) 07/26/2014 11:55 AM EDT 07/26/2014 12:09 PM EDT Ayaan Torres MD LAB BLOOD ORDERABLES Fin al Result Performing Organization Address [facility] de Phone Number CONVERSION FROM [employer] * Basic Metabolic Panel (07/26/2014 11:55 AM EDT) Sodium 138 134 - 145 mmol/L CONVERSION FROM [facility] [facility] Potassium, Plasma 4.5 3.5 - 5.1 mmol/L CONVERSION FROM [facility] Chloride 103 96 - 108 mmol/L CONVERSION FROM [facility] [facility] Total CO2 22 22 - 32 mmol/L CONVERSION FROM [facility] [facility] Anion Gap 13 6 - 16 CONVERSION FROM [facility] Calcium 8.6 8.5 - 10.5 mg/dL CONVERSION FROM [facility] Glucose, Blood RANDOM CONVE RSION FROM [facility] [facility] Glucose, Blood 81 74 - 118 mg/dL CONVERSION FROM [facility] BUN 15 6 - 23 mg/dL CONVERSION FROM [facility] Creatinine 0.6 0.5 - 1.2 mg/dL CONVERSION FROM [facility] Glomerular Filtration Rate > 60 >60 ml/min CONVERSION FROM [facility] Result 25 6 - 25 RATIO CONVERSION FROM [facility] Hemolysis Normal CONVERSION FROM [facility] Blood specimen (specimen) 07/26/2014 11:55 AM EDT 07/26/2014 12:09 PM EDT Ayaan Torres MD LAB BLOOD ORDERABLES Fin al Result Performing Organization Address [facility] de Phone Number CONVERSION FROM [employer] * Hemoglobin A1C (07/26/2014 11:00 AM EDT) Hemoglobin A1C 6.2 4.4 - 6.3 % CONVERSION FROM [facility] Estimated Average Glucose 131 mg/dl CONVERSION FROM [facility] Comment: The estimated average Glucose (eAG) is calculated as follows based on the recommendations of the [place] [employer]: eAG = (A1C x 28.7) - 46.7 Blood specimen (specimen) 07/26/2014 11:00 AM EDT 07/26/2014 2:57 PM EDT us Ayaan Torres MD LAB BLOOD ORDERABLES Fin al Result CONVERSION FROM [employer] * POCT Glucose (07/26/2014 7:49 AM EDT) Pathologist [facility] Glucose, POC 81 74 - 118 CONVERS ION FROM [employer] Comment:Resulted using [employer] P[employer] Software 07/26/2014 7:49 AM EDT 07/26/2014 8:01 AM EDT Dylan Coe MD POCT ORDERABLES - DEVICE Final Result CONVERSION FROM [employer] * (ABNORMAL) CBC and Differential (07/26/2014 6:00 AM EDT) [facility] WBC 5.5 3.8 - 10.5 K/ul CONVERSION FROM [employer] RBC 4.09(L) 4.1 - 5.6 M/ul CONVERSION FROM [employer] Hemoglobin 10.1(L) 12.7 - 16.7 g/dl CONVERSION FROM [facility] [facility] Hematocrit 31.9(L) 38.1 - 50.1 % CONVERSION FROM [employer] [facility] MCV 78.0(L) 82 - 98 fl CONVERSIO N FROM [employer] MCH 24.7(L) 25 - 35 pg CONVERSIO N FROM [employer] MCHC 31.7(L) 33 - 36 g/dl CONVERSION FROM [employer] RDW 18.0(H) 11.5 - 14.5 % CONVERSION FROM [employer] [facility] Platelet Count 293 150 - 450 K/ul CONVERSION FROM [employer] MPV 10.5 6 - 14 fl CONVERSION FROM [facility] Neutrophil 42(L) 50 - 70 % CONVERSIO N FROM [facility] Absolute Gran Ct 2.3 2.2 - 8.6 K/ul CONVERSION FROM [employer] Lymphocyte 42(H) 25 - 40 % CONVERSIO N FROM [employer] Absolute Lymph Ct 2.3 1.5 - 4.0 K/ul CONVERSION FROM [employer] Monocyte 12 4 - 12 % CONVERSION FROM [employer] Absolute [address] 0.7 0.16 - 1.26 K/ul CONVERSION FROM [employer] Eosinophil 3 0 - 3 % CONVERSIO N FROM [employer] Absolute Eos Ct (Conversion) 0.2 0.15 - 0.30 K/ul CONVERSION FROM [employer] Basophil 0 0 - 2 % CONVERSION FROM [employer] Absolute Baso Ct (Conversion) 0.0 0.0 - 0.21 K/ul CONVERSION FROM [employer] RELATIVE GRANULOYTES (CONVERSION) 0 % CONVERSION FROM [employer] Granulocytes(Aph eresis) 0 K/ul CONVERSION FROM [employer] Blood specimen (specimen) 07/26/2014 6:00 AM EDT 07/26/2014 7:15 AM EDT Dylan Coe MD LAB BLOOD ORDERABLES Final Resu lt CONVERSION FROM [employer] * Basic Metabolic Panel (07/26/2014 6:00 AM EDT) Pathologist [facility] Sodium 139 134 - 145 mmol/L CONVERSION FROM [employer] Potassium, Plasma 4.3 3.5 - 5.1 mmol/L CONVERSION FROM [employer] [facility] Chloride 104 96 - 108 mmol/L CONVERSION FROM [employer] Total CO2 24 22 - 32 mmol/L CONVERSION FROM [employer] Anion Gap 11 6 - 16 CONVERSION FROM [employer] Calcium 8.7 8.5 - 10.5 mg/dL CONVERSION FROM [employer] Glucose, Blood 86 74 - 118 mg/dL CONVERSION FROM [facility] BUN 14 6 - 23 mg/dL CONVERSION FROM [employer] Creatinine 0.7 0.5 - 1.2 mg/dL CONVERSION FROM [facility] Glomerular Filtration Rate > 60 >60 ml/min CONVERSION FROM [employer] Result 20 6 - 25 RATIO CONVERSION FROM [facility] Hemolysis Normal CONVERSION FROM [employer] Blood specimen (specimen) 07/26/2014 6:00 AM EDT 07/26/2014 7:15 AM EDT Dylan Coe MD LAB BLOOD ORDERABLES Final Resu lt CONVERSION FROM [employer] documented in this encounter Visit Diagnoses Not on filedocumented in this encounter 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
--- OUTSIDE RECORDS SUMMARY | 2024-05-28 13:52 | XMS_ITS | Encounter Summary ---
Author Organization [facility] Address [address] [place] [id number] Care Team Providers Care Merchandiser Retail Representative Name Role Phone None, Pcp Primary Care Provider Unavailabl e None, Pcp Unavailable Unavailable South Khanna MD Primary Care Provider [phone] Encounter Details Date Type Department Care Team (Late st Contact Info) Description 02/26/2014 Clinical Conversion Encounter GENERAL CONVERSION George Pritchett MD [address] [place] [id number] Social History Tobacco Use Types Packs/Day Years Used Date Smoking Tobacco: Never Assessed Sex and Gender Information Value Date Recorded Sex Assigned at Male 01/14/2019 2:03 PM EDT Legal Sex Male 3:08 PM EDT Gender Identity Male 01/14/2019 2:03 PM EDT Sexual Orientation Not on file documented as of this encounter H&P Notes * George Pritchett MD - 10/10/2014 3:59 PM EDT [facility] Name: CHARLIE HAYWOOD [facility] MR # [id number] [facility] : [birth year] Age: 38 Sex: M ADM Shahla HISTORY & PHYSICAL EXAM Location: Room: [facility] Admit Date: 02/26/14 - cc: MD SWAPNA Patten MD _ DATE OF ADMISSION: 02/26/2014 CHIEF COMPLAINT: Chest pain. HISTORY OF PRESENT ILLNESS: The patient is a 38-year-old male with an extensive psych history that includes ____ borderline personality disorder, depression, anxiety, multiple suicide attempts in the past, also history of type 2 diabetes, reports history of myocardial infarction x4 with stents to the RCA in 2008, although I do not have any records at this time regarding all the information. The patient comes in today saying that he was on a train and he developed chest pain, midsternal with radiation to the left arm and jaw associated with dyspnea, nausea, vomiting, diaphoresis. He came to the Emergency Department. Vital signs were stable and within normal limits. Pain is still present, 4 hours later, he was given nitroglycerin sublingual, apparently did not relieve much, then he obtained some relief after Dilaudid and morphine. Because of this extensive history, he was also given a dose of Lovenox 130 mg. EKG is normal. He does not even show evidence of old WI. Blood work is essentially unremarkable except for microcytic anemia, but cardiac enzymes negative. The patient being admitted for chest pain rule out an acute coronary syndrome. PAST MEDICAL HISTORY: As reported by the patient coronary artery disease, status post WI x4 and stent to the RCA in 2008 done at [facility], history of type 2 diabetes on insulin, hypertension, asthma, depression, anxiety, obstructive sleep apnea on CPAP with a pressure of 12 mmHg, gastric bypass surgery. According to psych notes, which is the only note that we have available in our records on the previous admission 3 years ago, the patient had multiple suicide attempts in the past by cutting his wrist, although there is no scar. ____ the patient was admitted in 2010 to [facility], had extensive workup with stress test Myoview, cardiac enzymes and it evidently was negative for coronary artery disease at that time. These I obtained from a psych notes in 2010. FAMILY HISTORY: His mother of a stroke. SOCIAL HISTORY: He denies drugs or alcohol, but he smokes half a pack of cigarettes a day. ALLERGIES: AMOXICILLIN, TYLENOL, IBUPROFEN. MEDICATIONS: Metoprolol 50 mg bid, lisinopril 20 mg daily, atorvastatin 40 mg daily, aspirin 81 mg daily, Plavix 75 mg daily, isosorbide mononitrate 10 mg bid, Advair 250/50 bid, Flomax 0.4 mg at bedtime, trazodone 300 mg at bedtime, Effexor 150 mg at bedtime, Seroquel 100 mg at bedtime, Abilify 10 mg in the morning, Depakote 500 mg bid, Neurontin 900 mg tid, Ativan 1 mg qid prn. These were obtained from a list that he had with him. I also asked about [facility] Name: CHARLIE HAYWOOD [facility] MR # [id number] HISTORY & PHYSICAL continued Admit Date: 02/26/14 diabetes medications and he told me he takes metformin 1000 mg bid, Lantus 100 units bid, and Humalog 100 units tid with meals, all the diabetes medications were not in his list. He also told me he did not take insulin today. PHYSICAL EXAMINATION: Blood pressure 121/58, heart rate 60, respiratory rate 18, temperature 98.9, O2 saturation 99% on 2 L of oxygen per nasal cannula. The patient is a morbidly obese male who is resting comfortably, does not seem to be in any type of distress at this time. HEENT, normocephalic, atraumatic. Mucous membranes are moist, no pharyngeal exudates. Neck, supple, no lymphadenopathy or jugular venous distention. Lungs, clear to auscultation bilaterally. Cardiac, regular rate and rhythm, no murmurs or gallops. Chest, no reproducible tenderness on palpation. Abdomen, soft, nontender, nondistended. Bowel sounds normal. Extremities without cyanosis, edema, or calf tenderness. LABORATORY DATA: CBC with normal white blood cell count of 6.4, hematocrit 32.3, MCV 76.7, platelets 416. Acute care profile with normal troponin and it is entirely within normal limits. Chest x-ray normal. ASSESSMENT AND PLAN: A 38-year-old male with reported history of diabetes on fairly large doses of insulin, also history of myocardial infarction x4, status post stent, hypertension, asthma, obstructive sleep apnea, depression with suicide attempts in the past who comes in with complaints of chest pain. The patient has a previous admission for malingering, apparently has been in the past going to several different hospitals with complaints of chest pain, also admissions to the psych unit and at this time, I do not have any documentation to prove all this conditions he claims to have. He told me he did not take any insulin today and his blood glucose is only 107 and he is telling me that he takes a total of 500 units of insulin a day. His EKG is normal. Troponin is negative. He was given a dose of Lovenox for full anticoagulation in the Emergency Department. He will be covered at least until tomorrow morning. I will continue all the medications that were in his list except for the insulin and metformin. We need to verify all this information with his primary care physician tomorrow morning. For diabetes, I will keep him on sliding scale insulin. He will be monitored on telemetry. We will cycle troponin. For deep venous thrombosis prophylaxis, he is already anticoagulated at least for the next 24 hours. CODE STATUS: FULL CODE. Dictated by: George Pritchett MD ELECTRONICALLY SIGNED 02/27/14 0014 T: [id number] //ivnm// //add1// //add3// //add2// [id number] documented in this encounter Plan of Treatment Not on file documented as of this encounter Procedures Procedure Name Priority Date/Time Associated Diagnosis Comments POCI GLUCOSE Routine 02/26/2014 10:01 PM EST ECG 12-LEAD Routine 02/26/2014 8:21 PM EST XR PORTABLE CHEST 1 VW Routine 02/26/2014 6:23 PM EST ECG 12-LEAD Routine 02/26/2014 5:48 PM EST APTT Routine 02/26/2014 5:14 PM EST PROTIME-INR Routine 02/26/2014 5:14 PM EST CBC AND DIFFERENTIAL Routine 02/26/2014 5:14 PM EST TROPONIN T Routine 02/26/2014 5:14 PM EST BASIC METABOLIC PANEL Routine 02/26/2014 5:14 PM EST ECG 12-LEAD Routine 02/26/2014 4:50 PM EST documented in this encounter Results * (ABNORMAL) POCT Glucose (02/26/2014 10:01 PM EST) [facility] Glucose, POC 175(H) 74 - 118 CONVERS ION FROM [employer] Comment:Resulted using [employer] POC Software 02/26/2014 10:0 1 PM EST 02/26/2014 10:15 PM EST us Jai Tejeda MD POCT ORDERABLES - DEVICE Erica arroyo Result CONVERSION FROM [facility] * ECG 12 lead (02/26/2014 8:21 PM EST) 02/26/2014 8:21 PM EST Narrative CONVERSION FROM [facility] - 02/27/2014 12:51 PM EST [facility] [employer]. ?Name: ??CHARLIE HAYWOOD ?MR # ?? [id number] EKG REPORT ? PCP: ??NO MD ?Ord : ??George Pritchett MD ?: ??[birth year] ??Age: 38 ?? Sex: M ? ADM Shahla ?Location: ??J4 ?425-1 ?Exam Date: ??02/26/14 cc: ??Daljit Guerra M.D. ? Geogre Pritchett MD ? George Pritchett MD Test Reason : DONE Blood Pressure : / mmHG Vent. Rate : 064 BPM ? Atrial Rate : 064 BPM ?? P-R Int : 152 ms ?QRS Dur : 096 ms ?QT Int : 386 ms ? P-R-T Axes : 009 031 047 degrees ?? QTc Int : 398 ms Normal sinus rhythm Normal ECG No previous ECGs available Confirmed by Saravanan Guerra Robert ([id number]) on 02/27/2014 12:50:54 PM Referred By: ? Confirmed By:Daljit Guerra M.D Procedure Note Daljit Guerra J - 11/16/2014 [employer]. Name: CHARLIE AHYWOOD MR # [id number] EKG REPORT PCP: NO MD Baldwin MD: George Pritchett MD : [birth year] Age: 38 Sex:M ADMINo Location: [facility]1 Exam Date: 02/26/14 cc: Skye Friend Rafael, MD Rafael Meller, MD Test Reason : DONE Blood Pressure : / mmHG Vent. Rate : 064 BPM Atrial Rate : 064 BPM P-R Int : 152 ms QRS Dur : 096 ms QT Int : 386 ms P-R-T Axes : 009 031 047 degrees QTc Int : 398 ms Normal sinus rhythm Normal ECG No previous ECGs available Confirmed by Saravanan Guerra Robert ([id number]) on 02/27/2014 12:50:54 PM Referred By: Confirmed By:Daljit Guerra M.D us Clinic Info ECG ORDERABLES Final Result Performing Organization Address City/State/[facility] Co de Phone Number CONVERSION FROM [facility] * XR Portable Chest 1 Vw (02/26/2014 6:23 PM EST) Anatomical Region Laterality Modality Chest Radiographic Janna ging 02/26/2014 6:23 PM EST Narrative 02/26/2014 6:23 PM EST ?EXAM DESCRIPTION: ??CHEST PORTABLE FRONTAL VIEW ? 02/26/2014 7:18 PM ?CLINICAL HISTORY: ??Shortness of breath and chest pain ?COMPARISON: ??No prior studies for comparison. ?TECHNIQUE: ??Single AP portable view of the chest. ?FINDINGS: ??No lines and tubes are identified. ?The heart size and mediastinal contours are within normal limits. ? No pleural effusions. ? No pneumothorax is identified. ? The lungs are clear. ?The bones and soft tissues appear normal for age. ?IMPRESSION: ??Normal single view of the chest. Procedure Note Charline Hernández MD - 11/17/2014 EXAM DESCRIPTION: CHEST PORTABLE FRONTAL VIEW 02/26/2014 7:18 PM CLINICAL HISTORY: Shortness of breath and chest pain COMPARISON: No prior studies for comparison. TECHNIQUE: Single AP portable view of the chest. FINDINGS: No lines and tubes are identified. The heart size and mediastinal contours are within normal limits. No pleural effusions. No pneumothorax is identified. The lungs are clear. The bones and soft tissues appear normal for age. IMPRESSION: Normal single view of the chest. us Lio Cueto MD IM DIAGNOSTIC IMAGING ORDERA BLES Final Result * ECG 12 lead (02/26/2014 5:48 PM EST) 02/26/2014 5:48 PM EST Narrative CONVERSION FROM [facility] - 02/27/2014 12:52 PM EST [employer]. ?Name: ??CHARLIE HAYWOOD ?MR # ?? [id number] EKG REPORT ? PCP: ??NO MD ?Ord MD: ??George Pritchett MD ?: ??[birth year] ??Age: 38 ?? Sex: M ? ADM Shahla ?Location: ?425-1 ?Exam Date: ??02/26/14 cc: ??Daljit Guerra M.D. ? George Pritchett MD ? George Pritchett MD Test Reason : CHEST PAIN Blood Pressure : / mmHG Vent. Rate : 061 BPM ? Atrial Rate : 061 BPM ?? P-R Int : 148 ms ?QRS Dur : 094 ms ?QT Int : 396 ms ? P-R-T Axes : -04 035 042 degrees ?? QTc Int : 398 ms Normal sinus rhythm Normal ECG Confirmed by Saravanan Guerra Robert ([id number]) on 02/27/2014 12:51:51 PM Referred By: ? Confirmed By:Daljit Guerra M.D Procedure Note Daljit Guerra J - 11/16/2014 [employer]. Name: CHARLIE HAYWOOD MR # [id number] EKG REPORT PCP: NO MD Ord MD: George Pritchett MD : [birth year] Age: 38 Sex:M ADMINo Location: 425-1 Exam Date: 02/26/14 cc: Skye Friend Rafael, MD Rafael Meller, MD Test Reason : CHEST PAIN Blood Pressure : / mmHG Vent. Rate : 061 BPM Atrial Rate : 061 BPM P-R Int : 148 ms QRS Dur : 094 ms QT Int : 396 ms P-R-T Axes : -04 035 042 degrees QTc Int : 398 ms Normal sinus rhythm Normal ECG Confirmed by Saravanan Guerra Robert ([id number]) on 02/27/2014 12:51:51 PM Referred By: Confirmed By:Daljit Guerra M.D Clinic Info ECG ORDERABLES Final Result CONVERSION FROM [facility] * (ABNORMAL) CBC and Differential (02/26/2014 5:14 PM EST) WBC 6.4 3.8 - 10.5 K/ul CONVERSION FROM [facility] RBC 4.21 4.1 - 5.6 M/ul CONVERSION FROM [facility] Hemoglobin 9.8(L) 12.7 - 16.7 g/dl CONVERSION FROM [facility] Hematocrit 32.3(L) 38.1 - 50.1 % CONVERSION FROM [facility] MCV 76.7(L) 82 - 98 fl CONVERSIO N FROM [facility] MCH 23.3(L) 25 - 35 pg CONVERSIO N FROM [facility] MCHC 30.3(L) 33 - 36 g/dl CONVERSION FROM [facility] RDW 17.1(H) 11.5 - 14.5 % CONVERSION FROM [facility] Platelet Count 416 150 - 450 K/ul CONVERSION FROM [facility] MPV 9.4 6 - 14 fl CONVERSION FROM [facility] Neutrophil 49(L) 50 - 70 % CONVERSIO N FROM [facility] Absolute Gran Ct 3.1 2.2 - 8.6 K/ul CONVERSION FROM [facility] Lymphocyte 37 25 - 40 % CONVERSIO N FROM [facility] Absolute Lymph Ct 2.4 1.5 - 4.0 K/ul CONVERSION FROM [facility] Monocyte 12 4 - 12 % CONVERSION FROM [facility] Absolute [address] 0.8 0.16 - 1.26 K/ul CONVERSION FROM [facility] Eosinophil 2 0 - 3 % CONVERSIO N FROM [facility] Absolute Eos Ct (Conversion) 0.1(L) 0.15 - 0.30 K/ul CONVERSION FROM [facility] Basophil 0 0 - 2 % CONVERSION FROM [facility] Absolute Baso Ct (Conversion) 0.0 0.0 - 0.21 K/ul CONVERSION FROM [facility] RELATIVE GRANULOYTES (CONVERSION) 0 % CONVERSION FROM [facility] Granulocytes(Aph eresis) 0 K/ul CONVERSION FROM [facility] Blood specimen (specimen) 02/26/2014 5:14 PM EST 02/26/2014 5:22 PM EST Jai Tejeda MD LAB BLOOD ORDERABLES Final Re sult CONVERSION FROM [facility] * APTT (02/26/2014 5:14 PM EST) PTT 29.5 22.5 - 35.5 SECONDS CONVERSION FROM [facility] Blood specimen (specimen) 02/26/2014 5:14 PM EST 02/26/2014 5:22 PM EST Jai Tejeda MD LAB BLOOD ORDERABLES Final Re sult CONVERSION FROM [facility] * ProTime-INR (02/26/2014 5:14 PM EST) Prothrombin Time 13.4 12.2 - 14.2 SECONDS CONVERSION FROM [facility] INR 1.04 0.90 - 1.10 CONVERSI ON FROM [facility] Blood specimen (specimen) 02/26/2014 5:14 PM EST 02/26/2014 5:22 PM EST Jai Tejeda MD LAB BLOOD ORDERABLES Final Re sult Performing Organization Address [facility] Co de Phone Number CONVERSION FROM [facility] * Troponin T (02/26/2014 5:14 PM EST) Troponin T < 0.01 <0.03 ng/ml CONVERSION FROM [facility] Comment: Troponin-T: <0.03 ng/ml - Negative 0.03 to 0.09 ng/ml - Indeterminate >0.09 ng/ml - Positive for acute myocardial damage Blood specimen (specimen) 02/26/2014 5:14 PM EST 02/26/2014 5:22 PM EST Jai Tejeda MD LAB BLOOD ORDERABLES Final Re sult CONVERSION FROM [facility] * Basic Metabolic Panel (02/26/2014 5:14 PM EST) Sodium 134 134 - 145 mmol/L CONVERSION FROM [facility] Potassium, Plasma 4.3 3.5 - 5.1 mmol/L CONVERSION FROM [facility] Chloride 100 96 - 108 mmol/L CONVERSION FROM [facility] Total CO2 24 22 - 32 mmol/L CONVERSION FROM [facility] Anion Gap 10 6 - 16 CONVERSION FROM [facility] Calcium 9.1 8.5 - 10.5 mg/dL CONVERSION FROM [facility] Glucose, Blood RANDOM CONVE RSION FROM [facility] Glucose, Blood 107 74 - 118 mg/dL CONVERSION FROM [facility] BUN 14 6 - 23 mg/dL CONVERSION FROM [facility] Creatinine 0.7 0.5 - 1.2 mg/dL CONVERSION FROM [facility] Glomerular Filtration Rate > 60 >60 ml/min CONVERSION FROM [facility] Result 20 6 - 25 RATIO CONVERSION FROM [facility] Hemolysis Normal CONVERSION FROM [facility] Blood specimen (specimen) 02/26/2014 5:14 PM EST 02/26/2014 5:22 PM EST us Jai Tejeda MD LAB BLOOD ORDERABLES Final Re sult CONVERSION FROM [facility] * ECG 12 lead (02/26/2014 4:50 PM EST) 02/26/2014 4:50 PM EST Narrative CONVERSION FROM [facility] - 02/27/2014 12:51 PM EST [facility]. ?Name: ??CHARLIE HAYWOOD ?MR # ?? [id number] EKG REPORT ? PCP: ??NO MD ?Ord MD: ??Lio Cueto M.D. ?: ??[birth year] ??Age: 38 ?? Sex: M ? ADM Shahla ?Location: ??J4 ?425-1 ?Exam Date: ??02/26/14 cc: ??Daljit Guerra M.D. ? Lio Cueto M.D. ? Lio Cueto M.D. Test Reason : CP Blood Pressure : / mmHG Vent. Rate : 065 BPM ? Atrial Rate : 065 BPM ?? P-R Int : 150 ms ?QRS Dur : 094 ms ?QT Int : 376 ms ? P-R-T Axes : 001 025 038 degrees ?? QTc Int : 391 ms Normal sinus rhythm Normal ECG Confirmed by Saravanan Guerra Robert ([id number]) on 02/27/2014 12:50:56 PM Referred By: ??MD ? Confirmed By:Daljit Guerra M.D Procedure Note Daljit Guerra J - 11/16/2014 [employer]. Name: CHARLIE HAYWOOD MR # [id number] EKG REPORT PCP: NO MD Ord MD: Lio Cueto M.D. : [birth year] Age: 38 Sex:M ADMINo Location: [facility]1 Exam Date: 02/26/14 cc: Skye Friend Joshua, M.D. Joshua Lerner, M.D. Test Reason : CP Blood Pressure : / mmHG Vent. Rate : 065 BPM Atrial Rate : 065 BPM P-R Int : 150 ms QRS Dur : 094 ms QT Int : 376 ms P-R-T Axes : 001 025 038 degrees QTc Int : 391 ms Normal sinus rhythm Normal ECG Confirmed by Saravanan Guerra Robert ([id number]) on 02/27/2014 12:50:56 PM Referred By: Confirmed By:Daljit Guerra M.D us Clinic Info ECG ORDERABLES Final Result CONVERSION FROM [facility] documented in this encounter Visit Diagnoses Not on filedocumented in this encounter Care Teams Merchandiser Retail Representative Relationship Specialty Start Date End Date None, MD Baldemar PCP - General 07/28/14 01/13/19 South Khanna MD [address] [place] [address] PCP - General 01/14/19 Baldemar Scott MD 07/28/14 documented as of this encounter
--- OUTSIDE RECORDS SUMMARY | 2024-05-28 13:52 | XMS_ITS | Encounter Summary ---
Author Organization Lizzeth Maier [facility] Address [address] [place] [id number] Care Team Providers Care Hand Meat Salter Name Role Phone None, Pcp Primary Care Provider Unavailabl e None, Pcp Unavailable Unavailable South Khanna MD Primary Care Provider [phone] Encounter Details Date Type Department Care Team (Late st Contact Info) Description 07/25/2014 Clinical Conversion Encounter GENERAL CONVERSION Mahendra Sánchez MD [address] [place] [id number] Social History Tobacco Use Types Packs/Day Years Used Date Smoking Tobacco: Never Assessed Sex and Gender Information Value Date Recorded Sex Assigned at Male 01/14/2019 2:03 PM EDT Legal Sex Male 3:08 PM EDT Gender Identity Male 01/14/2019 2:03 PM EDT Sexual Orientation Not on file documented as of this encounter H&P Notes * Mahendra Sánchez MD - 10/26/2014 6:33 AM EDT [facility] Name: CHARLIE HAYWOOD [facility] MR # [id number] [facility] : [birth year] Age: 38 Sex: M ADM Shahla HISTORY & PHYSICAL EXAM Location: Room: [facility] Admit Date: 07/25/14 - cc: Skye Marte MD _ DATE OF ADMISSION: 07/25/2014 PRIMARY CARE PHYSICIAN: Michelle Cheung CHIEF COMPLAINT: Chest pain. HISTORY OF PRESENT ILLNESS: The patient is a 38-year-old male. He claims that he has a past medical history of coronary artery disease. He apparently had an SC back in 2008, for which he had 1 stent. He also has had a history of diabetes mellitus, history of borderline personality disorder, depression, and anxiety. He was on his way to his friend here in [place], he was in a train when he started to have chest pain. He got off at [id number] as the chest pain got worse. He locates the chest pain on the left side and he described it as sharp, it radiates to his left jaw and arm. He was also very short of breath. The pain is nonpleuritic, somewhat related to exertion. He called the ambulance from the train station. He was sent to the Emergency Room for evaluation. The patient was recently admitted at [facility] in [place] for a similar pain. At that time, they only did an echocardiogram, which was essentially unremarkable, and he was sent home. He told me that apparently he stayed 10 days there. Last February, the patient was also admitted here at [facility], also similar story, he was in the train and developed chest pain. At that time, he was just evaluated with enzymes. They were able to get in touch with patient's transfer iron operator at that time from [facility] and according to documentation, the patient has had a cardiac catheterization multiple times last year. The last one reported in December was done at [facility], and it showed apparently nonobstructive coronary artery disease. The patient denies this. He said that this is not true, and the last time that he really had cardiac cath was back in 2008. He then told me that he has problems with his memory sometimes, and he could not remember. There was also a concern from the notes from last time that he might be malingering. He did not get any medications in the Emergency Room. He reports that he is ALLERGIC TO ASPIRIN AND NITROGLYCERIN; however, from his discharge notes from [facility], they actually put him on aspirin as well as Imdur, but he reports that that has been stopped because he developed an allergic reaction to it. His initial troponins were negative. EKG did not show any evidence of an ischemia, but the ED admitted for further evaluation and management. PAST MEDICAL HISTORY: 1. He reports that he has a history of coronary artery disease and had SC back in 2008, for which he had 1 stent. 2. Depression. 3. Borderline personality disorder. 4. Diabetes type 2, on insulin. 5. History of obstructive sleep apnea. PAST SURGICAL HISTORY: He had gastric bypass surgery and he had 1 cardiac [facility] Name: CHARLIE HAYWOOD [facility] MR # [id number] HISTORY & PHYSICAL continued Admit Date: 07/25/14 stent. SOCIAL HISTORY: He is a . He does not drink. He smokes a pack of cigarettes a day. FAMILY HISTORY: He reports that he has a strong family history of coronary artery disease. ALLERGIES: HE IS ALLERGIC TO AMOXICILLIN, TYLENOL, AND IBUPROFEN. HE ALSO REPORTS HE IS ALLERGIC TO ASPIRIN AND WELL NITRATES. CURRENT MEDICATIONS: He just could not tell me the medications that he takes, but from the medication reconciliation sheet from [facility], he was prescribed with aspirin 81 mg daily, divalproex, sodium 2000 mg twice a day, insulin Levemir 10 units at bedtime, Imdur 30 mg daily, metoprolol tartrate 12.5 mg bid, Seroquel 300 mg at bedtime, and trazodone 200 mg. REVIEW OF SYSTEMS: As per history of present illness. A total of 14 systems were reviewed and were negative. PHYSICAL EXAMINATION: Blood pressure is 120/59, pulse of 62, respiratory rate of 18, temperature afebrile, satting 95% on room air. Alert, oriented x3, in no acute distress. HEENT: Frederic palpebral conjunctivae, anicteric sclerae, moist buccal mucosa. No cervical lymphadenopathy was appreciated. Neck was supple. Lungs are clear to auscultation bilaterally. No crackles, no wheezes. Cardiovascular, S1, S2, normal rate, regular rhythm, no murmurs. Chest wall examination did not have any chest wall tenderness to palpation. Abdominal examination, he has bowel sounds, it was soft, it was nontender. Extremities, no cyanosis, no edema. LABORATORY DATA: Chemistry, sodium is 136, potassium 4.3, BUN 15, creatinine 0.7. Troponins were negative. CBC, WBC 6.1, hemoglobin 10.9, hematocrit 33.8 and a platelet count of 297. Chest x-ray was read as negative. EKG showed normal sinus rhythm with a rate of 67 beats per minute, normal axis. GA, QRS, and QTC are all normal. No ST elevations or ST depressions were noted. No evidence of Q-waves. IMPRESSION: This is a 38-year-old male. He apparently has a past medical history of coronary artery disease. He has a history of borderline personality disorder and diabetes. He presented with chest pain. He is being admitted to rule out acute coronary syndrome. PROBLEM LIST AND PLAN: 1. Chest pain. He will be admitted to telemetry under observation. The patient already was admitted from [facility] with similar symptoms about 2 weeks ago with an echocardiogram, which was negative. From old notes, it seems that patient has a history of malingering, and he already had cardiac catheterization that was done last year; however, the patient denies this, although it is in the notes that he had multiple cardiac catheterizations. Most likely patient's chest pain is not cardiac in nature. He also has a history of records of narcotic-seeking behavior. I would stay away from any narcotics at this point. He was asking for pain medications. He is allergic apparently to TYLENOL AND EVEN TO NSAIDS, AND EVEN NITRATES. Probably, we can give to him is tramadol at this point. If his next enzymes are negative, most likely he can be discharged. I do not think we need to do any further workup. [facility] Name: CHARLIE HAYWOOD [facility] MR # [id number] HISTORY & PHYSICAL continued Admit Date: 07/25/14 2. For the Diabetes Mellitus Type 2 on Insulin. We will put him on Novolog sliding scale. 3. For his bipolar disorder. He mentioned that he has suicidal thoughts. Ayesha jaquez mentioned this [facility]. He is asking psychiatry to see him which i will order. 4. He is a full code. 5. DVT prophylaxis with heparin subcutaneously. Dictated by: Mahendra Sánchez M.D. ELECTRONICALLY SIGNED 07/25/14 1904 T: SVETLANA 0125 3 //ivnm// //add1// //add3// //add2// [id number] documented in this encounter Plan of Treatment Not on file documented as of this encounter Procedures Procedure Name Priority Date/Time Associated Diagnosis Comments POCI GLUCOSE Routine 07/25/2014 10:28 PM EDT ECG 12-LEAD Routine 07/25/2014 8:[address] HEAD WO CONTRAST Routine 07/25/2014 7 :47 PM EDT HEMOGLOBIN AND HEMATOCRIT, BLOOD Routine 07/25/2014 6:50 PM EDT TROPONIN T Routine 07/25/2014 6:50 PM EDT POCI GLUCOSE Routine 07/25/2014 4:08 PM EDT HEMOGLOBIN AND HEMATOCRIT, BLOOD Routine 07/25/2014 1:12 PM EDT POCI GLUCOSE Routine 07/25/2014 10:48 AM EDT TROPONIN T Routine 07/25/2014 10:00 AM EDT POCI GLUCOSE Routine 07/25/2014 7:08 AM EDT TROPONIN T Routine 07/25/2014 2:37 AM EDT ECG 12-LEAD Routine 07/25/2014 2:25 AM EDT documented in this encounter Results * POCT Glucose (07/25/2014 10:28 PM EDT) [facility] Glucose, POC 77 74 - 118 CONVERS ION FROM [employer] Comment:Resulted using [email or web address] POC Software 07/25/2014 10:2 8 PM EDT 07/25/2014 10:37 PM EDT us Dylan Coe MD POCT ORDERABLES - DEVICE Final Result CONVERSION FROM [employer] * ECG 12 lead (07/25/2014 8:39 PM EDT) 07/25/2014 8:39 PM EDT Narrative CONVERSION FROM [employer] - 07/26/2014 10:30 AM EDT [facility]. ?Name: ??CHARLIE HAYWOOD ?MR # ?? [id number] EKG REPORT ? PCP: ??NO MD ?Ord MD: ??Dylan Coe MD ?: ??76 ??Age: 38 ?? Sex: M ? ADM Shahla ?Location: ?618-2 ?Exam Date: ??07/25/14 cc: ??Serafin Alvarez M.D. ? Dylan Coe MD ? Dylan Coe MD Test Reason : CHEST PAIN Blood Pressure : / mmHG Vent. Rate : 064 BPM ? Atrial Rate : 064 BPM ?? P-R Int : 190 ms ?QRS Dur : 098 ms ?QT Int : 378 ms ? P-R-T Axes : -04 007 032 degrees ?? QTc Int : 389 ms Normal sinus rhythm Normal ECG When compared with ECG of 25-JUL-2014 02:25, No significant change was found Confirmed by Skye Alvarez Mobeen ([id number]) on 07/26/2014 10:29:57 AM Referred By: ? Confirmed By:Serafin Alvarez M.D. Procedure Note Serafin Alvarez MD - 11/08/2014 [facility]. Name: CHARLIE HAYWOOD MR # [id number] EKG REPORT PCP: NO MD Baldwin MD: Dylan Coe MD : 76 Age: 38 Sex:M ADMINo Location: 61-2 Exam Date: 07/25/14 cc: Skye Paul Ajay, MD Ajay Sharma, MD Test Reason : CHEST PAIN Blood Pressure : / mmHG Vent. Rate : 064 BPM Atrial Rate : 064 BPM P-R Int : 190 ms QRS Dur : 098 ms QT Int : 378 ms P-R-T Axes : -04 007 032 degrees QTc Int : 389 ms Normal sinus rhythm Normal ECG When compared with ECG of 25-JUL-2014 02:25, No significant change was found Confirmed by Skye Alvarez Mobeen ([id number]) on 07/26/2014 10:29:57 AM Referred By: Confirmed By:Serafin Alvarez M.D. us Dylan Coe MD ECG ORDERABLES Final Result CONVERSION FROM [employer] * CT Head WO Contrast (07/25/2014 7:47 PM EDT) Anatomical Region Laterality Modality Head Computed Tomogra phy 07/25/2014 7:47 PM EDT Narrative 07/25/2014 7:47 PM EDT ? EXAM DESCRIPTION: ??CT HEAD W/C ?CLINICAL HISTORY: ??Unwitnessed fall. Struck back of head. Head pain. ?COMPARISON: ??There are no similar prior studies available for ? comparison. ?CONTRAST: ??IV contrast was not utilized. ?TECHNIQUE: ??Thin section axial images through the head were ?performed. ??Coronal reconstructions were also obtained. ?FINDINGS: ??The ventricles, sulci and cisterns are slightly prominent ?for the patient's age. There is a prominent CSF space along the ?posterior cerebellum which probably represents a elba cisterna magna ?variant or arachnoid cyst. There is no mass, mass effect or ?hemorrhage. No evidence of an acute territorial infarct. No ? extra-axial fluid collection. ?The visualized paranasal sinuses and mastoid air cells are ?well-aerated. No air-fluid levels to suggest acute sinusitis. The ?visualized globes appear intact. ?No evidence of an acute displaced skull fracture. ?IMPRESSION: ??No intracranial mass, hemorrhage or evidence of an acute ? territorial infarct. ?Prominent CSF space along the posterior cerebellum which could ?represent a elba cisterna magna variant or arachnoid cyst. ?Prominent ventricles, sulci and cisterns for the patient's age, ?suggesting mild generalized tissue loss. Procedure Note Corin Lindsay MD - 11/17/2014 EXAM DESCRIPTION: CT HEAD W/C CLINICAL HISTORY: Unwitnessed fall. Struck back of head. Head pain. COMPARISON: There are no similar prior studies available for comparison. CONTRAST: IV contrast was not utilized. TECHNIQUE: Thin section axial images through the head were performed. Coronal reconstructions were also obtained. FINDINGS: The ventricles, sulci and cisterns are slightly prominent for the patient's age. There is a prominent CSF space along the posterior cerebellum which probably represents a elba cisterna magna variant or arachnoid cyst. There is no mass, mass effect or hemorrhage. No evidence of an acute territorial infarct. No extra-axial fluid collection. The visualized paranasal sinuses and mastoid air cells are well-aerated. No air-fluid levels to suggest acute sinusitis. The visualized globes appear intact. No evidence of an acute displaced skull fracture. IMPRESSION: No intracranial mass, hemorrhage or evidence of anacute territorial infarct. Prominent CSF space along the posterior cerebellum which could represent a elba cisterna magna variant or arachnoid cyst. Prominent ventricles, sulci and cisterns for the patient's age, suggesting mild generalized tissue loss. Dylan Coe MD [facility] CT ORDERABLES Final Result * (ABNORMAL) Hemoglobin and Hematocrit, Blood (07/25/2014 6:50 PM EDT) Hemoglobin 10.8(L) 12.7 - 16.7 g/dl CONVERSION FROM [employer] Hematocrit 34.0(L) 38.1 - 50.1 % CONVERSION FROM [employer] Blood specimen (specimen) 07/25/2014 6:50 PM EDT 07/25/2014 6:53 PM EDT us Dylan Coe MD LAB BLOOD ORDERABLES Final Resu lt Performing Organization Address [facility] de Phone Number CONVERSION FROM [employer] * Troponin T (07/25/2014 6:50 PM EDT) Troponin T < 0.01 <0.03 ng/ml CONVERSION FROM [employer] Comment: Troponin-T: <0.03 ng/ml - Negative 0.03 to 0.09 ng/ml - Indeterminate >0.09 ng/ml - Positive for acute myocardial damage Blood specimen (specimen) 07/25/2014 6:50 PM EDT 07/25/2014 6:53 PM EDT us Dylan Coe MD LAB BLOOD ORDERABLES Final Resu lt Performing Organization Address [facility] de Phone Number CONVERSION FROM [employer] * POCT Glucose (07/25/2014 4:08 PM EDT) Glucose, POC 84 74 - 118 CONVERS ION FROM [employer] Comment:Resulted using [email or web address] POC Software 07/25/2014 4:08 PM EDT 07/25/2014 4:26 PM EDT us Dylan Coe MD POCT ORDERABLES - DEVICE Final Result Performing Organization Address [facility] de Phone Number CONVERSION FROM [employer] * (ABNORMAL) Hemoglobin and Hematocrit, Blood (07/25/2014 1:12 PM EDT) Hemoglobin 10.7(L) 12.7 - 16.7 g/dl CONVERSION FROM [email or web address] Hematocrit 34.4(L) 38.1 - 50.1 % CONVERSION FROM [employer] Blood specimen (specimen) 07/25/2014 1:12 PM EDT 07/25/2014 1:59 PM EDT us Dylan Coe MD LAB BLOOD ORDERABLES Final Resu lt Performing Organization Address [facility] Co de Phone Number CONVERSION FROM [employer] * (ABNORMAL) POCT Glucose (07/25/2014 10:48 AM EDT) Glucose, POC 139(H) 74 - 118 CONVERS ION FROM [email or web address] Comment:Resulted using [employer]ALS POC Software 07/25/2014 10:4 8 AM EDT 07/25/2014 10:57 AM EDT us Dylan Coe MD POCT ORDERABLES - DEVICE Final Result Performing Organization Address [facility] de Phone Number CONVERSION FROM [employer] * Troponin T (07/25/2014 10:00 AM EDT) Troponin T < 0.01 <0.03 ng/ml CONVERSION FROM [employer] Comment: Troponin-T: <0.03 ng/ml - Negative 0.03 to 0.09 ng/ml - Indeterminate >0.09 ng/ml - Positive for acute myocardial damage Blood specimen (specimen) 07/25/2014 10:00 AM EDT 07/25/2014 10:53 AM EDT us Dylan Coe MD LAB BLOOD ORDERABLES Final Resu lt Performing Organization Address [facility] de Phone Number CONVERSION FROM [employer] * POCT Glucose (07/25/2014 7:08 AM EDT) Glucose, POC 83 74 - 118 CONVERS ION FROM [employer] Comment:Resulted using [employer] POC Software 07/25/2014 7:08 AM EDT 07/25/2014 7:15 AM EDT us Dylan Coe MD POCT ORDERABLES - DEVICE Final Result Performing Organization Address City/[facility] de Phone Number CONVERSION FROM [employer] * Troponin T (07/25/2014 2:37 AM EDT) Troponin T < 0.01 <0.03 ng/ml CONVERSION FROM [employer] Comment: Troponin-T: <0.03 ng/ml - Negative 0.03 to 0.09 ng/ml - Indeterminate >0.09 ng/ml - Positive for acute myocardial damage Blood specimen (specimen) 07/25/2014 2:37 AM EDT 07/25/2014 2:37 AM EDT us Dylan Coe MD LAB BLOOD ORDERABLES Final Resu lt CONVERSION FROM [employer] * ECG 12 lead (07/25/2014 2:25 AM EDT) 07/25/2014 2:25 AM EDT Narrative CONVERSION FROM [employer] - 07/25/2014 1:15 PM EDT [facility]. ?Name: ??CHARLIE HAYWOOD ?MR # ?? [id number] EKG REPORT ? PCP: ??NO MD ?Ord MD: ??Mahendra Sánchez M.D. ?: ??[birth year] ??Age: 38 ?? Sex: M ? ADM Shahla ?Location: ??J ?416-2 ?Exam Date: ??07/25/14 cc: ??Serafin Alvarez M.D. ? Mahendra Sánchez M.D. ? Mahendra Sánchez M.D. Test Reason : CHEST PAIN Blood Pressure : / mmHG Vent. Rate : 062 BPM ? Atrial Rate : 062 BPM ?? P-R Int : 166 ms ?QRS Dur : 096 ms ?QT Int : 400 ms ? P-R-T Axes : 011 015 037 degrees ?? QTc Int : 406 ms Normal sinus rhythm Normal ECG When compared with ECG of 26-FEB-2014 20:21, No significant change was found Confirmed by Skye Alvarez Mobeen ([id number]) on 07/25/2014 1:15:30 PM Referred By: ? Confirmed By:Serafin Alvarez M.D. Procedure Note Serafin Alvarez MD - 11/08/2014 [facility] [employer] [facility]. Name: CHARLIE HAYWOOD MR # [id number] EKG REPORT PCP: NO Ord MD:Mahendra Sánchez M.D. : [birth year] Age: 38 Sex:M ADMINo Location: 416-2 Exam Date: 07/25/14 cc: Skye Paul Kristofferson, M.D. Kristofferson Lee, M.D. Test Reason : CHEST PAIN Blood Pressure : / mmHG Vent. Rate : 062 BPM Atrial Rate : 062 BPM P-R Int : 166 ms QRS Dur : 096 ms QT Int : 400 ms P-R-T Axes : 011 015 037 degrees QTc Int : 406 ms Normal sinus rhythm Normal ECG When compared with ECG of 26-FEB-2014 20:21, No significant change was found Confirmed by Skye Alvarez Mobeen ([id number]) on 07/25/2014 1:15:30 PM Referred By: Confirmed By:Serafin Alvarez M.D. us Mahendra Sánchez MD ECG ORDERABLES Final Resul t CONVERSION FROM [employer] documented in this encounter Visit Diagnoses Not on filedocumented in this encounter Care Teams Hand Meat Salter Relationship Specialty Start Date End Date None, MD Baldemar PCP - General 07/28/14 01/13/19 South Khanna MD [address] [place] [id number] PCP - General 01/14/19 None, MD Baldemar 07/28/14 documented as of this encounter
--- OUTSIDE RECORDS SUMMARY | 2024-05-28 13:52 | XMS_ITS | Encounter Summary ---
Author Organization [facility] Address [address] [place] [address] Care Team Providers Care Shell Fisherman Name Role Phone South Khanna MD Primary Care Provider [phone] Reason for Visit * Reason Comments Hospital F/U Encounter Details Date Type Department Care Team ([facility] st Contact Info) Description 12/26/2018 Telephone [facility] Primary Care Internal Medicine [address] [place] [phone] South Khanna MD [facility] Care [address] [place] [id number] Hospital F/U Social History Tobacco Use Types Packs/Day Years Used Date Smoking Tobacco: Never Assessed Sex and Gender Information Value Date Recorded Sex Assigned at Not on file Legal Sex Male 1:01 AM EDT Gender Identity Not on file Sexual Orientation Not on file documented as of this encounter Miscellaneous Notes * Telephone Encounter - Kailey Alonso - 12/26/2018 11:55 AM EDT FYI to PCP Informed Marva Toscano of previous message. They stated patient is aware and he has been told to go to [facility]. It is the patient that does not follow instructions and chooses to go to [facility]. Future Appointments Date Time Provider Department Phone 01/03/19 11:00 AM JUNIOR Germain [facility] Primary Care Internal Medicine [address] 06/26/19 1:00 PM South Khanna MD [facility] Primary Care Internal Medicine [address] * Telephone Encounter - Kailey Alonso - 12/26/2018 10:53 AM EDT Left Voicemail He may see Mirtha next week. Please advise them that in the future the patient should be referred to the emergency room at [facility] as this is the hospital that I utilize and he is on [employer] care which mandates that they use this facility * Telephone Encounter - South Khanna MD - 12/26/2018 10:14 AM EDT Patient with known coronary disease had recent cardiac catheterization which showed patent stent and no other obstructive coronary disease. He presented with 1 week of persistent chest discomfort. Laboratory studies chest x-ray exam unremarkable. Patient discharged home. He evidently has had numerous ER visits for this. Please call the nurse at [facility]. He may see Mirtha next week. Please advise them that in the future the patient should be referred to the emergency room at [facility] as this is the hospital that I utilize and he is on [facility] one care which mandates that they use this facility. This has been an ongoing problem with their referral pattern. * Telephone Encounter - Kailey Alonso - 12/26/2018 9:52 AM EDT Marva Toscano [facility] home looking for a hospital f/u. Patient was seen yesterday at the ER. PCP please advise. documented in this encounter Plan of Treatment Not on file documented as of this encounter Visit Diagnoses Not on filedocumented in this encounter Additional Health Concerns Infection Onset Date Last Indicated Resolved Time COVID-19 Rule-Out 02/05/2020 02/05/2020 02/06/2020 1:15 PM EDT documented as of this encounter Care Teams Shell Fisherman Relationship Specialty Start Date End Date South Khanna MD PCP - General Internal Medicine 12/18/18 10/02/19 documented as of this encounter
--- OUTSIDE RECORDS SUMMARY | 2024-05-28 13:52 | XMS_ITS | Encounter Summary ---
Author Organization Lizzeth Maier [facility] Address [address] [place] [address] Care Team Providers Care Disbursing Officer Name Role Phone None, Pcp Primary Care Provider Unavailabl e None, Pcp Unavailable Unavailable South Khanna MD Primary Care Provider [phone] Encounter Details Date Type Department Care Team (Late st Contact Info) Description 08/05/2014 Clinical Conversion Encounter GENERAL CONVERSION Roc Mcintosh MD [address] [place] [address] Social History Tobacco Use Types Packs/Day Years Used Date Smoking Tobacco: Never Assessed Sex and Gender Information Value Date Recorded Sex Assigned at Male 01/14/2019 2:03 PM EDT Legal Sex Male 3:08 PM EDT Gender Identity Male 01/14/2019 2:03 PM EDT Sexual Orientation Not on file documented as of this encounter Consult Notes * Roc Mcintosh MD - 10/26/2014 6:33 AM EDT [facility] Name: [facility] M R # [id number] [facility] : [birth year] Age: 38 Sex: M DIS Shahla CONSULTATION REPORT Location: [facility] Room: [facility] Admit Date: 07/26/14 - 07/29/14 cc: Skye Palomino MD _ DATE OF CONSULTATION: 07/26/2014 PSYCHIATRIC CONSULTATION PROBLEM FOR CONSULTATION: Suicidal ideation. HISTORY OF THE PROBLEM: The patient is an unfortunate 39-year-old gentleman with a reported history of mood disorder, but truly a history of repeated episodes of malingering, who for the last several years has presented to most of the major hospitals in the [facility] area reporting variously chest pain, falls, bleeding, and a number of other elements in an attempt to cope and be taking care of. At times, he has outright acknowledged that this is what he does, other times he ____. PAST PSYCHIATRIC HISTORY: The patient has a [facility] casework manager, named Toney Astudillo, who we have spoken to in the past, cell phone number ____. He also has a brother named Ronaldo, , who gave me permission to speak with Ronaldo, but not with Toney. His last psychiatric hospitalization was in 2010, at [facility]. At that time, he was diagnosed with malingering with antisocial personality disorder. He relates that he is currently homeless. Furthermore, he has consistently related to this hospitalization that his father a month ago and that he does not have many relationships ____ family. He reports he is suicidal as a result of the of his father, cannot really explain much more in the way of details. He does not tell me this, but according to his brother, he presented to [facility] the day prior to his presentation here, he had been discharged from the Emergency Department and then seems to immediately proceeded to our Emergency Department. According to his brother, this is absolutely consistent pattern and that he has been repeatedly found to have no illness consistent with his reported symptoms. On my conversation with the patient, he initially reports that he is suicidal when it becomes clear that I am going to give him something of a hard time around this and I am questioning whether he is in fact suicidal. He asks me to state my intention whether I intend to admit him and when I say that I do not believe he needs psychiatric admissions, he says fine then just let me go, just let me go. He said he will be able to leave when he is medically cleared. With regard to suicidal plan, the patient denies that he has any suicidal plan. With regard to suicidality, once it has become clear that he will not obtain admission on this hospitalization, his complaints of suicidality seemed to have dissipated. When I reiterated that it is difficult to allow him to leave now that he said he is suicidal, he says now I just like to leave this hospital. When asked his plans for the future, he is certainly able to express that he will proceed to other hospitals in the future. FORMULATION AND RECOMMENDATIONS: This 39-year-old gentleman with a long history of clearly malingering at this present time given his responses to my questions and to my somewhat provocative stance with regard to his reports of [facility] Name: [facility] MR # [id number] CONSULTATION continued Admit Date: 07/26/14 symptoms. At the present time, there is certainly no need for one-to-one observation, there is no need for any change in psychiatric care, and there are no psychiatric contraindications to discharge. Dictated by: Roc Mcintosh M.D. ELECTRONICALLY SIGNED 09/05/14 1152 T: SVETLANA [id number] //ivnm// //add1// //add3// //add2// [id number] documented in this encounter Plan of Treatment Not on file documented as of this encounter Visit Diagnoses Not on filedocumented in this encounter Care Teams Disbursing Officer Relationship Specialty Start Date End Date None, MD Baldemar PCP - General 07/28/14 01/13/19 South Khanna MD [address] [place] [id number] PCP - General 01/14/19 None, Pcp, 07/28/14 documented as of this encounter
--- OUTSIDE RECORDS SUMMARY | 2024-05-28 13:52 | XMS_ITS | Clinical Summary ---
Author Organization [facility] Address [address] [place] [address] [address] Care Team Providers Care Business Integration Manager Name Role Phone Poc, Non Atrius Pcp Or Primary Care Provider Sharon vailable Social History Tobacco Use Types Packs/Day Years Used Date Smoking Tobacco: Never Assessed Sex and Gender Information Value Date Recorded Sex Assigned at Not on file Legal Sex Male 1:09 AM EDT Gender Identity Not on file Sexual Orientation Not on file Plan of Treatment Health Maintenance Due Date Last Done Comments HEP B INITIAL SCREENING 1994 HIV SCREENING 1994 HEPATITIS B VACCINE (1 of 3 - 19+ 3-dose series) 08/01/1995 LIPID SCREENING 1996 DTAP/TDAP/TD VACCINE (1 - Tdap) 1997 HEP C SCREENING 2012 PERIODIC HEALTH REVIEW 2016 COLORECTAL SCREENING: UPDATE W EDIT MODIFIERS 2021 COVID-19 Vaccine (2023- season) 2023 FLU SEASONAL (#1) 12/09/2023 12/08/2016 * GLUCOSE OR A1C SCREENING - Q3YR 09/16/2024 09/16/2021, 09/15/2021, 09/15/2021, Additional history exists HAEMOPHILUS INFLUENZA VACCINE Aged Out No longer eligible based on patient's age to complete this topic HEPATITIS A VACCINE Aged Out No longe r eligible based on patient's age to complete this topic PNEUMOCOCCAL VACCINE(S) Aged Out No l onger eligible based on patient's age to complete this topic POLIO VACCINE Aged Out No longer elig ible based on patient's age to complete this topic RSV Vaccine //toddler Aged Out No longer eligible based on patient's age to complete this topic Insurance [employer] Care Teams Business Integration Manager Relationship Specialty Start Date End Date Poc, Non Atrius Pcp Or PCP - General 09/03/14
--- OUTSIDE RECORDS SUMMARY | 2024-05-28 13:52 | XMS_ITS | Encounter Summary ---
Author Organization Lizzeth Maier [facility] Address [address] [place] [id number] Care Team Providers Care Barrel Raiser Helper Name Role Phone None, Pcp Primary Care Provider Unavailabl e None, Pcp Unavailable Unavailable Souht Khanna MD Primary Care Provider [phone] Encounter Details Date Type Department Care Team (Late st Contact Info) Description 07/26/2014 Clinical Conversion Encounter GENERAL CONVERSION Jc Inman MD [address] [place], [place] [address] [address] Social History Tobacco Use Types Packs/Day Years Used Date Smoking Tobacco: Never Assessed Sex and Gender Information Value Date Recorded Sex Assigned at Male 01/14/2019 2:03 PM EDT Legal Sex Male 3:08 PM EDT Gender Identity Male 01/14/2019 2:03 PM EDT Sexual Orientation Not on file documented as of this encounter H&P Notes * Jc Inman MD - 10/26/2014 6:33 AM EDT [facility] Name: [facility] MR # [id number] [facility] : [birth year] Age: 38 Sex: M DIS Shahla HISTORY & PHYSICAL EXAM Location: [facility] Room: [facility] Admit Date: 07/26/14 - 07/29/14 cc: Skye Guillen MD _ DATE OF ADMISSION: 07/26/2014 PRIMARY CARE PHYSICIAN: [place] locally. CHIEF COMPLAINT: Chest pain. HISTORY OF PRESENT ILLNESS: This 38-year-old male with somewhat murky cardiac history was just discharged from [facility] early this morning after being worked up for chest pain. He ruled out for an acute coronary syndrome and was discharged to home. His workup consisted of cycle cardiac markers and EKGs. He did not have a stress test and did not see pharmacovigilance safety expert. He has had multiple workups in the past for chest pain. Apparently, he did have angioplasty with a stent in 2004, but there is not documentation of this in his medical records. He states that he has had multiple previous MIs, but again this has not been well documented. He states that since discharge he continues to have intermittent substernal chest pain that seems to be more in the left side. It seems fairly sharp, sometimes radiates to his left jaw, left arm. It is associated with some degree of dyspnea. He states that he has had multiple cardiac catheterizations, but again we do not have the records for this. He does have multiple cardiovascular risk factors. When he arrived in the Emergency Room, his blood pressure was 150/67, his pulse was 70, his respirations were 18, his temperature was 99 and his oxygen saturation was 96% on room air. His initial laboratory studies revealed mild anemia. His acute care profile was unremarkable. His troponin T was less than 0.01. His portable chest x-ray revealed no obvious infiltrates. His EKG revealed normal sinus rhythm with no obvious ischemia. He was treated with IV morphine and admitted to the hospitalist service for further evaluation and treatment. PAST MEDICAL HISTORY: 1. Type 2 diabetes mellitus. He takes insulin, but he is uncertain of the dose. 2. Obstructive sleep apnea. 3. Coronary artery disease as discussed above. 4. Hypertension. 5. Benign prostatic hypertrophy. 6. Borderline personality. 7. Depression. 8. Morbid obesity. PAST SURGICAL HISTORY: 1. Angioplasty with stent. 2. Gastric bypass surgery. ALLERGIES: AMOXICILLIN, ASPIRIN, MOTRIN, NITRATES, TYLENOL. MEDICATIONS: Lopressor 50 mg bid, lisinopril 20 mg daily, Lipitor 40 mg daily, Flomax 0.4 mg daily, Depakote 2000 mg bid, Plavix 75 mg daily, [facility] Name: [facility] MR # [id number] HISTORY & PHYSICAL continued Admit Date: 07/26/14 trazodone 300 mg at bedtime, Effexor XR 150 mg daily, Neurontin 900 mg tid, Ativan 0.5 mg tid prn anxiety, Advair Diskus 250/50 mcg 1 puff bid, Seroquel 300 mg daily, Abilify 20 mg daily. FAMILY HISTORY: Apparently, there is a lot of coronary artery disease in his family. SOCIAL HISTORY: He lives alone and is disabled. He quit smoking cigarettes 2 weeks ago. He does not drink alcohol. CODE STATUS: Full code. REVIEW OF SYSTEMS: General: No fevers, chills or recent weight change. HEENT: No headache or sore throat. Endocrine: No heat or cold intolerance. Respiratory: No cough, sputum production or wheezing. Cardiovascular: See the history of present illness. He continues to have intermittent left-sided chest pain that seems somewhat pleuritic in nature and sometimes radiates to his left jaw and left arm. No palpitations, orthopnea, PND, or claudication. Gastrointestinal: Regular bowel movements. He apparently had some bright red bleeding during his recent hospitalization, but this has not been well documented. Genitourinary: No dysuria, frequency, or urgency. Musculoskeletal: Negative. Skin: No rashes. Neurologic: No focal weakness, paresthesias or seizures. PHYSICAL EXAMINATION: Vital signs: Blood pressure 110/48, pulse 56, respirations 18, temperature 99, oxygen saturation 96% on room air. General: The patient is an alert, obese, adult male, in no acute distress. HEENT: Normocephalic, equal and reactive pupils, normal TMs, normal oropharynx. Neck: No adenopathy. Chest: Clear lungs. Cardiac: Regular rhythm, no murmurs or gallops. Abdomen: There is massive obesity with a healed midline scar. No tenderness, organomegaly or masses. Pelvic: Not examined. Rectal: Not examined. Extremities: No peripheral edema. Pulses are palpable in the feet. Skin: Normal turgor. Neurologic: No obvious motor or sensory deficits. Mental status: His affect is quite flat. ADMISSION LABORATORY DATA: Hemoglobin 10.7, hematocrit 33.7, white blood count 6.8, platelets 306. Sodium 138, potassium 4.5, chloride 103, CO2 22, calcium 8.6, glucose 81, BUN 15, creatinine 0.6, GFR greater than 60. Troponin T less than 0.01. ProTime 13, INR 1, PTT 26.2. Portable chest x-ray, there are no obvious infiltrates. EKG is normal sinus rhythm with no obvious ischemia. ASSESSMENT AND PLAN: 1. Intermittent chest pain with somewhat murky history of coronary artery disease that has not been very well documented. He will be admitted to the hospitalist service on telemetry for cycle cardiac markers and EKGs. It may be worthwhile to do some type of stress test to clarify the issues of his chest pain. Cardiology consult will be obtained. He will be treated with Plavix. 2. Obstructive sleep apnea. 3. Hypertension. He will continue his usual antihypertensive medications. 4. Benign prostatic hypertrophy. Treatment will continue with Flomax. 5. Borderline personality disorder. [facility] Name: [facility] MR # [id number] HISTORY & PHYSICAL continued Admit Date: 07/26/14 6. Depression. He will continue his usual psychotropic medications. 7. Morbid obesity. Weight loss will be encouraged. Dictated by: Jc Inman M.D. ELECTRONICALLY SIGNED 08/21/14 1511 T: SVETLANA [id number] //ivnm// //add1// //add3// //add2// [id number] documented in this encounter Plan of Treatment Not on file documented as of this encounter Visit Diagnoses Not on filedocumented in this encounter Care Teams Barrel Raiser Helper Relationship Specialty Start Date End Date None, MD Baldemar PCP - General 07/28/14 01/13/19 South Khanna MD [address] [place] [address] PCP - General 01/14/19 None, MD Baldemar 07/28/14 documented as of this encounter
--- OUTSIDE RECORDS SUMMARY | 2024-05-28 13:52 | XMS_ITS | Encounter Summary ---
Author Organization Lizzeth Maier [facility] Address [address] [place] [address] Care Team Providers Care Reinforcing Steel Worker Name Role Phone None, Pcp Primary Care Provider Unavailabl e None, Pcp Unavailable Unavailable South Khanna MD Primary Care Provider Encounter Details Date Type Department Care Team (Late st Contact Info) Description 07/28/2014 Clinical Conversion Encounter GENERAL CONVERSION Ayaan Torres MD Social History Tobacco Use Types Packs/Day Years Used Date Smoking Tobacco: Never Assessed Sex and Gender Information Value Date Recorded Sex Assigned at Male 01/14/2019 2:03 PM EDT Legal Sex Male 3:08 PM EDT Gender Identity Male 01/14/2019 2:03 PM EDT Sexual Orientation Not on file documented as of this encounter Progress Notes * Ayaan Torres MD - 11/24/2014 7:51 AM EDT [facility] [employer] Name: CHARLIE HAYWOOD MR # [id number] : [birth year] Age: 38 Sex: M PROGRESS NOTE ADM IN Location: *[facility] Room: [facility] cc: Ayaan Torres M.D. Subjective Date/Time Note Initiated NOTE DATE: 07/28/14 TIME: 1240 Review of Systems Events since last encounter CONTINUES TO C/O OF 01/16 CHEST PAIN NEG NUCLEAR STRESS TEST ACCORDING TO CARDIOLOGY CARDIAC CATH ARRANGED @ [facility]AN/RIGOBERTO FOR TOMORROW General Appetite. Denies: Chills, Night sweats, Fatigue, Malaise. HEENT Denies: Head Aches, Dysphasia, Sinus Congestion, Post Nasal Drip, Sore Throat. Pulmonary Dyspnea. Cardiovascular Chest Pain. Denies: Palpitations, Orthnopnea, Paroxysmal Noc. Dyspnea, Edema, Lt Headedness. Gastrointestinal Denies: Nausea, Vomiting, Abdominal Pain, Diarrhea, Constipation, Melena, Hematochezia. Genitourinary Other (DOESN'T URINATE VERY FREQUENTL). Denies: Dysuria, Frequency, Incontinence, Hematuria, Retention. Objective Exam Vital Signs and I& O Vital Signs Result Date Time Pulse Ox 96 07/28 1203 B/P 132/71 07/28 1203 O2 Flow Rate 2 07/28 1203 Temp 99.1 07/28 1203 Pulse 75 07/28 1203 Resp 20 07/28 1203 07/28 0700 Intake Total 100 Output Total 600 Balance -500 General Appearance Alert, Oriented X3, Cooperative, No Acute Distress HEENT Atraumatic, PERRLA, EOMI Lungs Clear to Auscultation Neck Supple, No JVD, No LAD Cardiovascular Regular Rate, No Murmurs Abdomen Normal Bowel Sounds, Soft, No Tenderness, No Hepatospenomegaly, No Masses Extremities No Clubbing, No Cyanosis, No Edema Skin No Rashes Neurological Normal Speech Psych/Mental Status Mood NL Results LAB/KEVIN & RAD Laboratory Tests 07/28 0841 Hematology Plt Count (150 - 450 K/ul) 311 Laboratory Tests 07/27 07/27 07/27 07/28 07/28 1432 1622 [id number] 0717 0841 Chemistry POC Glucose (74 - 118) 84 115 80 Troponin T (<0.03 ng/ml) < 0.01 Hematology Plt Count (150 - 450 K/ul) 311 07/28 1205 Chemistry POC Glucose (74 - 118) 95 Assessment/Plan Problem List Medical Problems Chest pain Depression DM II (diabetes mellitus, type II), controlled Hypertension Morbid obesity A&P: TROPONINS NEGATIVE EKG HAS BEEN NORMAL WITH SB BECAUSE OF ON-GOING CHEST PAIN CARDIOLOGY HAS ELECTED TO DO A CARDIAC CATH AND THIS IS TO BE ARRANGED FOR TOMORROW Report Electronically Signed By: Ayaan Torres M.D. Electronic Signature Date/Time: 07/28/14 1245 documented in this encounter Plan of Treatment Not on file documented as of this encounter Visit Diagnoses Not on filedocumented in this encounter Care Teams Reinforcing Steel Worker Relationship Specialty Start Date End Date None, MD Baldemar PCP - General 07/28/14 01/13/19 South Khanna MD [address] [place] [id number] PCP - General 01/14/19 NoneBaldemar MD 07/28/14 documented as of this encounter
--- OUTSIDE RECORDS SUMMARY | 2024-05-28 13:52 | XMS_ITS | Clinical Summary ---
Author Organization [facility] Address [address] [place] [address] Care Team Providers Care Tooling Manager Name Role Phone Unavailable Primary Care Provider Unavailabl e Allergies Active Allergy Reactions Criticality Noted Date Comments Acetaminophen 03/17/2019 PER OUTSIDE RECORD Amoxicillin Medium 01/21/2019 Hives and SOB Aspirin High 01/21/2019 Anaphylaxis, Hive, SOB Ibuprofen Medium 01/21/2019 Hives, SOB Nitroglycerin Medium 01/21/2019 SOB Penicillins 03/17/2019 PER OUTSIDE RECORD Medications Albuterol Sulfate (2.5 MG/3ML) 0.083% Nebu Soln 3 ML 4 TIMES DAILY Active Atorvastatin Calcium 80 MG Tab 1 TABLET DAILY Activ e Clopidogrel Bisulfate 75 MG Tab 1 TABLET DAILY Activ e Glucose Blood (FREESTYLE LITE) Strip None Entered Active Metoprolol Succinate (TOPROL XL) 100 MG TABLET SR 24 HR 1 TABLET DAILY Activ e Pantoprazole Sodium 40 MG Tablet Delayed Response 1 TABLET DAILY Activ e Ranolazine 500 MG TABLET SR 12 HR 2 TABLETS TWICE DAILY Active Tamsulosin HCl 0.4 MG Cap 1 CAPSULE DAILY Act isreal traZODone HCl 100 MG Tab 1 TABLET 3 TIMES DAILY Active Carbidopa-Levodo pa CR 50-200 MG Tab CR 1/2 TABLET TWICE DAILY 60 Tab 9 Active DIVALPROEX SODIUM, MIGRAINE, (DEPAKOTE ER) 500 MG TABLET SR 24 HR 2 TABLETS TWICE DAILY 180 Tab 3 9 Active QUEtiapine Fumarate 200 MG Tab 1 TABLET AT BEDTIME 90 Tab 3 9 Active Additional Information Patient taking differently: 400 mgOralNightly, Reported on 04/14/2019 Ferrous Sulfate 325 (65 Fe) MG Tab 1 TABLET DAILY TWICE DAILY 180 Tab 3 9 Active Levothyroxine Sodium (SYNTHROID, LEVOTHROID) 25 MCG tablet Take 25 mcg by mouth 1 (one) time each day Active Lisinopril (PRINIVIL,ZESTRI L) 2.5 MG tablet Take 2.5 mg by mouth 1 (one) time each day Active QUEtiapine Fumarate (SEROQUEL) 50 MG tablet Take 50 mg by mouth 1 (one) time each day Active Tiotropium [place] Monohydrate (SPIRIVA HANDIHALER) 18 MCG per inhalation capsule Place 1 capsule into inhaler and inhale 1 (one) time each day Active metFORMIN HCl (GLUCOPHAGE) 1000 MG tablet Take 1,000 mg by mouth 2 (two) times a day with meals Active Gabapentin (NEURONTIN) 100 MG capsule Take 100 mg by mouth 3 (three) times a day Active OLANZapine (ZYPREXA) 5 MG tablet Take 5 mg by mouth every night Active Active Problems Problem Noted Date Diagnosed Date Coronary artery disease invo lving [place] coronary artery of [place] heart with angina pectoris 05/15/2019 Overview (05/15/2019): Coronary artery disease with prior MD, PCI/stenting of RCA in 2008, in-stent restenosis and PCI/stenting in 2017. Heart [facility] at [facility] 11/30/2018: LM: No stenosis LAD: Large vessel with diminuitive diagonal. Ramus intermedius: Bifurcating vessel. LCX: Moderate OM2 with moderate lPLB RCA: Dominant vessel . ??Eccentric 40% stenosis at the distal edge of prior RCA stents in the mid vessel. ??No thrombus. ??VAISHNAVI 3 flow. Moderate PDA. ?? LVEDP: 19mmHG without AV gradient ?? Impression: No flow limiting CAD with patent RCA stents and 40% ISR. Recurrent chest pain syndrom e with 6 ED visits in April,. 05/15/2019 Chronic bilateral low back pain without sciatica -PT 04/17/2019 Vitamin D insufficiency 02/14/2019 Overview (02/14/2019): - Glucose intolerance 02/14/2019 Overview (02/14/2019): Hemoglobin A1c 5.8 01/29/2018 Obstructive sleep apnea 02/14/2019 Overview (02/14/2019): Sleep study 02/10/2018- mild obstructive sleep apnea with AHI of 6 RDI of 6 REM AHI of 30.3 shamika O2 desaturation 88%. Normal sleep efficiency. Reduced REM sleep. Reduced slow-wave sleep. Positive PLM with increased arousals. Patient had unsuccessful CPAP titration due to significant mask leak. He has had Type 2 diabetes mellitus wit hout complication, without long-term current use of insulin 01/21/2019 Parkinson disease 01/21/2019 Bipolar 1 disorder 01/21/2019 Hyperlipidemia 01/21/2019 History of MD (myocardial infarction) 01/21/2019 Overview (02/14/2019): Prior stents x2 in the RCA, one bare-metal, 1 SAMANTA; denies nasal congestion or sore throat heart catheterization June 2018 Schizoaffective disorder, bipolar type 9 Tobacco dependence 01/21/2019 Resolved Problems Problem Noted Date Diagnosed Date Resolved Date Hypertension 01/21/2019 05/15/2019 Immunizations Name Administration Dates Next Due COVID-19, mRNA (Moderna Pre Fall 2022) Monovalent, 100 mcg/0.5 ml or 50 mcg/0.25 ml dose 06/07/2020 Influenza (SEASONAL) - 01/11/2018,12/08/2016 Influenza,injectable,quad,Prsrv Fr 03/05/2021,,12/12/2018 Influenza,injectable,quad,preservative 0 Influenza,seasonal,trivalent ,preservative (FLUZONE MDV) 01/07/2014,01/11/2012 PPV23 (Pneumovax) 09/01/2013 influenza,seasonal,trivalent ,PF (Fluzone, Fluarix, Flulaval) 02/18/2015 Family History Medical History Relation Name Comments Hypertension Father Lipid/Cholesterol Abnormality Father HYPERLIPIDEMIA Hypertension Mother Lipid/Cholesterol Abnormality Mother HYPERLIPIDEMIA Relation Name Status Comments Father Mother Social History Tobacco Use Types Packs/Day Years Used Date Smoking Tobacco: Every Day Cigarettes Smokeless Tobacco: Never Tobacco Cessation:Ready to Q uit: No; Counseling Given: No Intimate Partner Violence Answer Date R ecorded Fear of Current or Ex-Partner Not on file Emotionally Abused Not on file 11/28/2022 Physically Abused Not on file 11/28/2022 Sexually Abused Not on file 11/28/2022 Feel Safe at Home Not on file 11/28/2022 Sex and Gender Information Value Date Recorded Sex Assigned at Not on file Legal Sex Male 1:01 AM EDT Gender Identity Not on file Sexual Orientation Not on file Last Filed Vital Signs Vital Sign Reading Time Taken Comments Blood Pressure 126/64 04/14/2019 8:50 AM EST Pulse 96 04/14/2019 8:50 AM EST right Temperature 36.6 ??C (97.8 ??F) 03/03/2019 2:34 PM ES T Respiratory Rate - - Oxygen Saturation 95% 04/14/2019 8:50 AM EST right Inhaled Oxygen Concentration - - Weight 135 kg (298 lb) 03/03/2019 2:34 PM EST Height - - Body Mass Index - - Plan of Treatment Health Maintenance Due Date Last Done Comments DTaP/Tdap/Td (1 - Tdap) 1994 Eye/Retina Exam 1994 Microalbumin 1994 Hep B (1 of 3 - 19+ 3-dose series) 08/01/1995 Pneumococcal (2 of 2 - PCV) 09/01/2014 09/01/2013 HA1C 02/12/2021 08/12/2020, 01/08, 03/26/2019, Additional history exists Colon Cancer Screening 2021 LDL Cholesterol 08/12/2021 08/12/2020, 05/0 09/2020, 02/05/2020, Additional history exists GFR 05/29/2022 05/29/2021, 05/10, 05/25/2021, Additional history exists Bariatric Labs (gastric bypass) 05/26/2023 COVID-19 Vaccine ( season) 2023 08/11/2020, 06/07/2020 Influenza (#1) 2023 03/05/2021, 12/09, 12/12/2018, Additional history exists Zoster (Shingrix) (1 of 2) 2026 Hepatitis C Screening Completed 01/20/2021, 020 Chest Imaging Discontinued 05/28/2021, 0204/2021, 05/09/2021, Additional history exists EKG Discontinued 02/16/2024, 10/07, 05/28/2021, Additional history exists HPV Vaccine Aged Out No longer eligi ble based on patient's age to complete this topic Hep A Aged Out No longer eligi ble based on patient's age to complete this topic Hib Aged Out No longer eligi ble based on patient's age to complete this topic Meningococcal ACWY Aged Out No longer eligible based on patient's age to complete this topic Goals Goal Patient Goal Type Associated Problems Recent Progress Patient-Stated? Author Blood Pressure < 140/90 Blood Pressure 126/64(04/14 8:50 AM EST) Rossi Barrera Note: Above is your goal for blood [...] at . Any insurance accepted. Quit smoking resources-http://[employer].org HEMOGLOBIN A1C % < 7 Result Component 5.8(02/05/20 9:30 AM EDT) No Rossi Alcantara Note: [...] fasting blood sugar below 120 is ideal. Procedures * Due to [place] [employer] law, this organization might not be sharing negative HIV tests. Procedure Name Priority Date/Time Associated Diagnosis Comments ELECTROCARDIOGRAM, TRACING Routine 02/16/2024 8:18 PM EST BASIC METABOLIC PANEL Routine 05/25/2021 4:37 PM EST CXR 2 VIEW AP/PA AND LAT Routine 05/10/2021 5:54 AM EST HEMOGLOBIN A1C Routine 02/05/2020 9:30 AM EDT CARDIAC RISK/LIPID PROFILE I Routine 02/05/2020 9:30 AM EDT from Last 3 Months or Most Recently Relevant to Health Maintenance Results * Due to [place] law, this organization might not be sharing negative HIV tests. * ELECTROCARDIOGRAM, TRACING (02/16/2024 8:18 PM EST) I-40 HORIZONTAL AXIS [address] [facility] QT INTERVAL [address] [facility] P DURATION [address] [facility] T [facility] T WAVE AXIS [address] [facility] QRS AXIS -41 degree [facility] QRSD INTERVAL 115 msec [facility] RAD OK INTERVAL 176 msec [facility] RAD T HORIZONTAL AXIS 57 degree [facility] QRS HORIZONTAL AXIS 19 degree [facility] Q ONSET 499 msec [facility] ATRIAL RATE 74 msec [facility] T-40 FRONT AXIS 202 degree [facility] ELECTROCARDIOGRAM 12 LEAD - ABNORMAL ECG - Sinus rhythm Nonspecific IVCD with LAD Abnormal R-wave progression, early transition [facility] Comment:Missing Attachment B [id number] Can be viewed in source system P FRONT AXIS 31 degree [facility] RR INTERVAL 811 msec [facility] QTCF 420 msec [facility] T-40 HORIZONTAL AXIS -89 degree [facility] S-T FRONT AXIS 241 degree [facility] P HORIZONTAL AXIS 31 degree [facility] HEART RATE 74 bpm [facility] RAD I-40 FRONT AXIS -44 degree [facility] QTCB 435 msec [facility] S-T HORIZONTAL AXIS 72 degree [facility] 02/16/2024 8:18 PM EST us Amy Abreu NP CARDIOVASCULAR-NO INERVIN Villanueva TG Final Result [facility] [address] [place] [address] * (ABNORMAL) BASIC METABOLIC PANEL (05/25/2021 4:37 PM EST) Glucose 187(H) 65 - 99 mg/dL [facility] BUN 12 5 - 26 mg/dL [facility] CREATININE 0.66 0.5 - 1.5 mg/dL [facility] BUN/Creatinine Ratio 18 8 - 27 [facility] GLOM FILT RATE, EST 117.6 >59 mL/min [facility] IF -RADHA N 136.3 >59 mL/min [facility] SODIUM 139 134 - 144 mEq/L [facility] POTASSIUM 4.2 3.6 - 5.6 mEq/L [facility] CHLORIDE 105 96 - 109 mEq/L [facility] CARBON DIOXIDE 21 20 - 32 mEq/L [facility] ANION GAP 13.0 8 - 15 [facility] CALCIUM 8.9 8.3 - 10.0 mg/dL [facility] COMMENT [facility] Comment: Specimen is slightly hemolyzed. The following tests may be affected: K+, AST, LDH, DBili, and UIBC. 05/25/2021 4:37 PM EST 05/25/2021 4:37 PM EST us Emergency Rm Provider [facility] LABORATORY Final Result [facility] [address] [place] [id number] * CXR 2 VIEW AP/PA AND LAT (05/10/2021 5:54 AM EST) RADIOLOGY REPORT [facility] Department of Radiology [address] [place] [address], [address] Name: CHARLIE HAYWOOD : 77 Date of Service: 05/10/21627 Acct Number: [id number] Order Number: ??[id number] ?Location: [facility] Report Number: [id number] ?Service: DEP ER/ Requesting Physician: Emergency,Room MD Category: RADIOLOGY ??[facility] Exam: CHEST 2 VIEWS (DEPARTMENT) ?? Signs/Symptoms: Chest Pain Report Status: Signed CHEST RADIOGRAPH, 2 VIEWS INDICATION: Chest pain. COMPARISON STUDY: 06/12/2020 chest radiograph. FINDINGS: TUBES, LINES AND DEVICES: None. LUNGS: Bilateral lung parenchyma is clear. PLEURA: No pleural effusion is seen. No pneumothorax is seen. HEART AND MEDIASTINUM: The heart is normal in size. ??The cardiomediastinal silhouette is unremarkable. OSSEOUS STRUCTURES AND SOFT TISSUE: There are mild degenerative changes involving the visualized thoracic spine. No displaced rib fractures are seen. ADDITIONAL FINDINGS:Right upper quadrant surgical clips are noted.. IMPRESSION: No acute cardiopulmonary process. ??Attending review by Dr. Velasquez, 05/10/2021 8:56 AM. THIS FINAL REPORT DIFFERS FROM THE PRELIMINARY RESIDENT REPORT ABOVE IN REGARD TO THE FOLLOWING: Incidental note is made of tenting adjacent to the left heart border suggestive of lingular scar. Findings are stable. I have reviewed the case and otherwise agree with the reported findings. #R1# Date/Time of Dictation: 05/10/21 0656 Psychological Science Professor (if applicable): Lokesh Frausto MD Approved By Attending Radiologist: Trish Velasquez MD 05/10/21 0859 [facility] Department of Radiology [address] [place] [address], [address] ? [phone] ? [facility] Anatomical Region Laterality Modality Other 05/10/2021 5:54 AM EST Narrative 05/10/2021 8:59 AM EST Reason for Study/History: Department of Radiology TEST(S) PROCESSED BY [facility] XRAY us Unknown Provider [facility] IMAGING-[facility] Final Resul t * HEMOGLOBIN A1C (02/05/2020 9:30 AM EDT) Hemoglobin A1C 5.8 % [facility] Comment: Diabetic Adult: ?? <7.0% Healthy ??Adult: ??4.8-5.9% GLUCOSE MEAN VALUE 120 mg/dL [facility] 02/05/2020 9:30 AM EDT 02/05/2020 9:30 AM EDT us Sushil Mcdaniel LABORATORY Final Result [facility] [address] [place] [address] * (ABNORMAL) CARDIAC RISK/LIPID PROFILE I (02/05/2020 9:30 AM EDT) CHOLESTEROL, TOTAL 112 100 - 199 mg/dL [facility] TRIGLYCERIDES 167(H) 0 - 149 mg/dL [facility] HDL-CHOLESTEROL 34(L) 40 - 59 mg/dL [facility] LDL-CHOLESTEROL 45 0 - 99 mg/dL [facility] CHOL/HDL RATIO 3.29 0.0 - 5.0 [facility] CHD RELATIVE RISK RATIO 0.5 Avg Risk = 1.0 x Avg [facility] LDL/HDL RATIO 1.3 0.0 - 3.6 [facility] Comment: RISK ?MEN RATIO ??WOMEN RATIO ==== ?==== ? ==== 1/2 AVERAGE ??1.00 ?1.50 ?AVERAGE ??3.60 ?3.20 2X ??AVERAGE ??6.30 ?5.00 3X ??AVERAGE ??8.00 ?6.10 CHD RELATIVE RISK RATIO 0.6 Avg Risk = 1.0 x Avg [facility] 02/05/2020 9:30 AM EDT 02/05/2020 9:30 AM EDT Sushil Mcdaniel LABORATORY Final Result Performing Organization Address City/State/[facility] Co de Phone Number [facility] [address] [place] [address] from Last 3 Months or Most Recently Relevant to Health Maintenance Insurance [facility] [employer]
--- OUTSIDE RECORDS SUMMARY | 2024-05-28 13:52 | XMS_ITS ---
Author Organization [facility] Address [address] [place], [place] [id number] Care Team Providers Care Judo Instructor Name Role Phone ARNOLD KUMAR Primary Care Provider [phone] Encounters Encounter Location Date Provider Diagnosis [facility] [address] [place], [place] [id number] 09/20/2023 ARNOLD KUMAR Plan Of Treatment No Information Progress Notes * Charlie HAYWOODDOB: [birth year] (48 yo M)Acc No.[id number]:09/20/2023 Progress Notes Patient:?Charlie HAYWOOD Provider:?ARNOLD KUMAR MD :1975???Age:48 Y???Sex:Male David e:09/20/2023 Address:[address] [place], [place] [id number] Subjective: * Chief Complaints: * ??? * Medical History:? Objective: * Vitals:? Assessment: Plan: * Treatment: * Images: * Electronic signature of DANNY KUMAR M.D. on 05/28/2024 at 01:52 PM EST Sign off status: Pending * Provider:?ARNOLD KUMAR MD Date: ?09/20/2023 Generated for Lopez mixon/Shaun/eTpriscillasmitting on:?05/28/2024 01:52 PM EST
--- OUTSIDE RECORDS SUMMARY | 2024-05-28 13:52 | XMS_ITS | Encounter Summary ---
Author Organization [facility] Address [address] [place] [address] Care Team Providers Care Well Logging Mud Analysis Captain Name Role Phone South Khanna MD Primary Care Provider [phone] Reason for Visit * Reason Comments Hospital F/U Encounter Details Date Type Department Care Team ([facility] st Contact Info) Description 01/31/2019 Telephone [facility] Primary Care Internal Medicine [address] [place] [address] [address] [place] [address] South Khanna MD [facility] [address] [place] [address] Hospital F/U Social History Tobacco Use Types Packs/Day Years Used Date Smoking Tobacco: Every Day Cigarettes Smokeless Tobacco: Never Sex and Gender Information Value Date Recorded Sex Assigned at Not on file Legal Sex Male 1:01 AM EDT Gender Identity Not on file Sexual Orientation Not on file documented as of this encounter Miscellaneous Notes * Telephone Encounter - Kailey Alonso - 01/31/2019 2:07 PM EDT Request Faxed. To [place] please look out for notes and ask PCP to advise on Hospital F/U Thank you * Telephone Encounter - Kailey Alonso - 01/31/2019 11:04 AM EDT Please get ER Notes from [facility] for PCP to advise on hospital f/u documented in this encounter Plan of Treatment [...] at . Any insurance accepted. Quit smoking resources-http://[employer].org HEMOGLOBIN A1C % < 7 Result Component [...] is ideal. documented as of this encounter Visit Diagnoses Not on filedocumented in this encounter Additional Health Concerns Infection Onset Date Last Indicated Resolved Time COVID-19 Rule-Out 02/05/2020 02/05/2020 02/06/2020 1:15 PM EDT documented as of this encounter Care Teams Well Logging Mud Analysis Captain Relationship Specialty Start Date End Date South Khanna MD PCP - General Internal Medicine 12/18/18 10/02/19 documented as of this encounter
--- OUTSIDE RECORDS SUMMARY | 2024-05-28 13:52 | XMS_ITS | Encounter Summary ---
Author Organization Lizzeth Esdras [facility] Address [address] [place] [address] Care Team Providers Care Italian Lecturer Name Role Phone None, Pcp Primary Care Provider Unavailabl e None, Pcp Unavailable Unavailable South Khanna MD Primary Care Provider Encounter Details Date Type Department Care Team (Late st Contact Info) Description 02/27/2014 Clinical Conversion Encounter GENERAL CONVERSION Jai Tejeda MD [address] [place] [address] Social History Tobacco Use Types Packs/Day Years Used Date Smoking Tobacco: Never Assessed Sex and Gender Information Value Date Recorded Sex Assigned at Male 01/14/2019 2:03 PM EDT Legal Sex Male 3:08 PM EDT Gender Identity Male 01/14/2019 2:03 PM EDT Sexual Orientation Not on file documented as of this encounter Discharge Summaries * Jai Tejeda MD - 10/10/2014 3:59 PM EDT [facility] Name: CHARLIE HAYWOOD [facility] R # [id number] [facility] : [birth year] Age: 38 Sex: M DIS Shahla DISCHARGE SUMMARY Location: Room: [facility] Admit Date: 02/26/14 Disch Date: 02/27/14 cc: Skye Brian MD _ DATE OF DISCHARGE: 02/27/2014 DISCHARGE DESTINATION: Home. DISCHARGE DIAGNOSES: 1. Repeated history of malingering. 2. Reported chest pain, ruled out for the same. 3. Narcotic drug seeking behavior. 4. History of right coronary artery stenting done in 2007 at an outside facility. The patient visiting multiple hospitals unfortunately, trying to seek care. 5. History of last known catheterization as per patient's rock drill operator, Dr. Reilly at phone number [phone]. Nonobstructive coronary artery disease as per [facility]; last catheterization this year: 6. History of a total of 9 lifetime cardiac catheterization reported as per the rock drill operator so far. 7. History of type 2 diabetes on oral medications only. No insulin as per the PCP reports. Contrary to what the patient says, he takes insulin. SECONDARY DIAGNOSES: Hypertension; asthma; depression; anxiety; obstructive sleep apnea, on CPAP with a pressure of 12 mmHg. History of bypass surgery. Reported history of suicidal attempts, treated at [facility] in 2010. DISCHARGE MEDICATIONS: Same as prior home medication list. No changes made while inpatient. As per the discharge medicine reconciliation. CHIEF COMPLAINT: Reported chest pain. HISTORY OF PRESENT ILLNESS: Please refer to the full history and physical from Dr. Pritchett from 02/26/2014 for full details. In brief, the patient is an unfortunate 38-year-old gentleman with extensive psychiatric history including borderline personality disorder, depression, anxiety, reported? multiple suicidal attempts in the past, tries to gain psychiatric admissions reportedly to the hospitals. The patient presented to the hospital saying he was on a train and developed chest pain. HOSPITAL COURSE: He was admitted to be ruled out for chest pain. His initial cardiac workup including troponins was negative. He was empirically given Lovenox anticoagulation till he is ruled out. I spoke in detail about the patient's case with both the patient's PCP, Dr. Jaja De La Rosa, at phone number [phone], and also spoke with the patient's rock drill operator, Dr. Reilly from [facility] Policy Officer at office number [phone] and cell phone number [phone]. The patient was seen by the staff, complaining of chest pain, but he was completely at ease. He was reporting 10/10 pain contrary to his behavior. The patient when seen by me was chest pain-free. [facility] Name: CHARLIE HAYWOOD [facility] MR # [id number] [facility] D/C Date: 02/27/14 DISCHARGE SUMMARY continued Reportedly, this patient has had 3 catheterization in the last 2 months, the last one being at [facility] in December, reportedly as per the rock drill operator's information. It showed nonobstructive coronary artery disease. The patient was recently seen by Dr. Reilly just 2 days ago at his office. There was no new procedural intervention recommended. He has been on maximal medical therapy as per the rock drill operator. Unfortunately, the patient has had a history of malingering. The patient was hemodynamically stable for discharge home. The patient's records were requested also from the PCP office to the [facility] [facility] fax number. PHYSICAL EXAMINATION: Temp 98.0, pulse 83, respirations 20, BP 112/63 mmHg, pulse ox 93% on room air. General: The patient is not in acute distress. Resting comfortably. HEENT: Normocephalic, nontraumatic. Pulmonary: Clear bilaterally. Cardiovascular: S1, S2 present, regular rhythm. Musculoskeletal: Bilateral lower extremities are warm and well perfused. Abdomen is soft, nontender, nondistended, no guarding or rigidity. Neurologically, he is alert and oriented x3. He is stable for discharge home. The patient's discharge plan was also discussed with case management for the help for train ticket he needs going home. LABS AND IMAGING: A1c 6.4. Troponin T less than 0.01. CBC: WBC 6.4, hemoglobin 9.8, hematocrit 32.3, platelets 416. INR 1.04. Acute chemistry profile is within normal limits. EKG shows normal sinus rhythm. Discharge process and care coordination took greater than 30 minutes. FOLLOWUP APPOINTMENTS: With PCP in 2 days. I also called and discussed the patient's care plan with PCP over the phone as above. Dictated by: Jai Tejeda M.D. ELECTRONICALLY SIGNED 03/01/14 1728 T: [id number] //ivnm// //add1// //add3// //add2// [id number] documented in this encounter Plan of Treatment Not on file documented as of this encounter Procedures Procedure Name Priority Date/Time Associated Diagnosis Comments POCI GLUCOSE Routine 02/27/2014 10:58 AM EST POCI GLUCOSE Routine 02/27/2014 7:57 AM EST HEMOGLOBIN A1C Routine 02/27/2014 6:00 AM EST TROPONIN T Routine 02/27/2014 1:04 AM EST documented in this encounter Results * (ABNORMAL) POCT Glucose (02/27/2014 10:58 AM EST) Glucose, POC 128(H) 74 - 118 CONVERS ION FROM [employer] Comment:Resulted using [employer] POC Software 02/27/2014 10:5 8 AM EST 02/27/2014 11:08 AM EST us Jai Tejeda MD POCT ORDERABLES - DEVICE Erica l Result CONVERSION FROM [employer] * POCT Glucose (02/27/2014 7:57 AM EST) Glucose, POC 110 74 - 118 CONVERS ION FROM [employer] Comment:Resulted using [employer] POC Software 02/27/2014 7:57 AM EST 02/27/2014 8:05 AM EST Jai Tejeda MD POCT ORDERABLES - DEVICE Erica l Result Performing Organization Address [facility] Co de Phone Number CONVERSION FROM [employer] * (ABNORMAL) Hemoglobin A1C (02/27/2014 6:00 AM EST) Hemoglobin A1C 6.4(H) 4.4 - 6.3 % CONVERSION FROM [employer] Estimated Average Glucose 137 mg/dl CONVERSION FROM [employer] Comment: The estimated average Glucose (eAG) is calculated as follows based on the recommendations of the [place] [employer]: eAG = (A1C x 28.7) - 46.7 Blood specimen (specimen) 02/27/2014 6:00 AM EST 02/27/2014 6:45 AM EST us Jai Tejeda MD LAB BLOOD ORDERABLES Final Re sult Performing Organization Address [facility] de Phone Number CONVERSION FROM [employer] * Troponin T (02/27/2014 1:04 AM EST) Troponin T < 0.01 <0.03 ng/ml CONVERSION FROM [employer] Comment: Troponin-T: <0.03 ng/ml - Negative 0.03 to 0.09 ng/ml - Indeterminate >0.09 ng/ml - Positive for acute myocardial damage Blood specimen (specimen) 02/27/2014 1:04 AM EST 02/27/2014 1:04 AM EST Jai Tejeda MD LAB BLOOD ORDERABLES Final Re sult Performing Organization Address [facility] Co de Phone Number CONVERSION FROM [employer] documented in this encounter Visit Diagnoses Not on filedocumented in this encounter Care Teams Italian Lecturer Relationship Specialty Start Date End Date None, MD Baldemar PCP - General 07/28/14 01/13/19 South Khanna MD [address] [place] [address] PCP - General 01/14/19 None, MD Baldemar 07/28/14 documented as of this encounter
--- OUTSIDE RECORDS SUMMARY | 2024-05-28 13:52 | XMS_ITS | Referral Summary ---
Author Organization [facility] Address [address] [place] [address] Care Team Providers Care Waxing Machine Operator Helper Name Role Phone Provider, Generic External Data Primary Care Pro vider Unavailable Allergies Active Allergy Reactions Criticality Noted Date Comments Acetaminophen Anaphylaxis,Hives,Other High 2 UNKNOWN Amoxicillin Hives,Swelling 11/02/2011 Aspirin Hives,Other 09/03/2014 Fish Allergy Anaphylaxis High 09/03/2014 Per patient Ibuprofen Hives,Other 11/02/2011 UNKNOWN Nitroglycerin Anaphylaxis,Hives,Other High 4 just the nitro pills Hives Poultry Meal Anaphylaxis High 09/03/2014 Per patient Social History Tobacco Use Types Packs/Day Years Used Date Smoking Tobacco: Never Smokeless Tobacco: Never Alcohol Use Standard Drinks/Week Comments Never 0 (1 standard drink = 0.6 oz pur e alcohol) AUDIT-C Answer Date Recorded Q1: How often do you have a drink containing alc ohol? Never 03/22/2020 Average Number of Drinks Not on file 020 Frequency of Binge Drinking Not on file 03/09 Sex and Gender Information Value Date Recorded Sex Assigned at Not on file Legal Sex Male 9:46 PM EDT Gender Identity Not on file Sexual Orientation Not on file Last Filed Vital Signs Vital Sign Reading Time Taken Comments Blood Pressure 167/92 03/23/2020 12:00 AM EST Pulse 83 03/23/2020 12:00 AM EST Temperature 36.5 ??C (97.7 ??F) 03/22/2020 9:24 PM ES T Respiratory Rate 19 03/23/2020 12:00 AM EST Oxygen Saturation 95% 03/23/2020 12:00 AM EST Inhaled Oxygen Concentration - - Weight 137 kg (303 lb) 03/22/2020 9:24 PM EST Height 177.8 cm (5' 10 ) 03/22/2020 9:24 PM EST Body Mass Index 43.48 03/22/2020 9:24 PM EST Plan of Treatment Not on file Insurance [facility] STAND[facility] Care Teams Waxing Machine Operator Helper Relationship Specialty Start Date End Date Provider, Generic External Data 0 PCP - General 03/22/20
--- OUTSIDE RECORDS SUMMARY | 2024-05-28 13:52 | XMS_ITS | Encounter Summary ---
Author Organization Lizzeth Maier [facility] Address [address] [place] [address] Care Team Providers Care Car Pre Cooler Name Role Phone None, Pcp Primary Care Provider Unavailabl e None, Pcp Unavailable Unavailable South Khanna MD Primary Care Provider [phone] Encounter Details Date Type Department Care Team (Late st Contact Info) Description 07/29/2014 Clinical Conversion Encounter GENERAL CONVERSION Ayaan Torres MD Social History Tobacco Use Types Packs/Day Years Used Date Smoking Tobacco: Never Assessed Sex and Gender Information Value Date Recorded Sex Assigned at Male 01/14/2019 2:03 PM EDT Legal Sex Male 3:08 PM EDT Gender Identity Male 01/14/2019 2:03 PM EDT Sexual Orientation Not on file documented as of this encounter Discharge Summaries * Ayaan Torres MD - 10/26/2014 6:33 AM EDT [facility] Name: CHARLIE HAYWOOD [facility] MR # [id number] [facility] : [birth year] Age: 38 Sex: M ADM Shahla TRANSFER SUMMARY Location: *[facility] Room: [facility] Admit Date: 07/26/14 Disch Date: cc: Skye Medina MD DATE OF TRANSFER: 07/29/2014 To be transferred to [facility] for cardiac catheterization on 07/29/14. PRIMARY CARE PHYSICIAN: Unknown. CONSULTS: Dr. Charlie Reynolds, cardiology and Dr. Jem Ramirez, psychiatry. The patient's own bdr is a Dr. Reilly at phone number [phone]. FINAL DISCHARGE DIAGNOSES: Chest pain of unclear etiology apparent history of nonobstructive coronary artery disease, history of 4 previous MIs according to the patient, history of right coronary artery stenting in 2004 or 2008 according to the patient, history of morbid obesity, status post gastric bypass, history of diabetes type 2, history of hyperlipidemia, history of hypertension, history of tobacco abuse, history of obstructive sleep apnea, history of depression and history of microcytic anemia. MEDICATIONS AT DISCHARGE: Include metoprolol tartrate 50 mg po bid, lisinopril 20 mg daily, atorvastatin 40 mg po daily, Flomax 0.4 mg nightly, trazodone 300 mg po at bedtime, Effexor XR 150 mg daily, gabapentin 900 mg po tid, lorazepam 0.5 mg po tid prn, Plavix 75 mg daily, Advair Diskus 250/50 one puff twice daily, melatonin 10 mg po at bedtime, Abilify 20 mg po daily, Seroquel XR 300 mg po nightly, Depakote delayed release 2000 mg po bid, Isordil 10 mg po tid, Colace 100 mg po bid, omeprazole 20 mg po bid, Zoloft 50 mg daily, vitamin D 1000 International Units daily, vitamin B12 1000 mcg po daily, ferrous sulfate 325 mg po daily. The patient is discharged on a cardiac diabetic diet. He should follow up with his PCP in 1-2 weeks. He is being transferred to [place] for cardiac catheterization arranged by Dr. Reynolds. PERTINENT FINDINGS AT DISCHARGE: Temperature is 98, pulse 52 and regular, respiratory rate 18, blood pressure 103/63, pulse ox 94%. The patient is awake, alert, oriented, intermittently complains of 10/10 chest pain, although looks comfortable and appears to be in no distress. He complains of shortness of breath as well. Again, not appearing to be in any distress. His lungs are clear. Examination of his heart reveals regular rhythm with no murmur. Abdomen is soft and nontender, no masses, no organomegaly. He has normal bowel sounds. Extremities with no cyanosis or clubbing. The patient's EKG has been unremarkable other than showing sinus bradycardia. He did undergo myocardium imaging stress test 2-day protocol that showed a small size, mild severity fixed apical defect, no significant fixed or reversible defect is seen otherwise, EF was 61%. There was no focal wall motion abnormalities. There is a small fixed apical defect which could reflect infarct or attenuation artifact. The patient's troponins were less than 0.01. Hemoglobin 10.3, hematocrit 33.1, WBC count 5900, platelet count 307,000. [facility] Name: CHARLIE HAYWOOD [facility] MR # [id number] [facility] Admit Date: 07/26/14 TRANSFER SUMMARY continued Sodium 141, potassium 4.6, chloride 106, CO2 24, glucose 75, BUN 15, creatinine 0.7. HISTORY OF PRESENT ILLNESS: The patient is a 38-year-old male who had been admitted to [facility] on the with chest pain and then subsequently discharged. He had gone to the train station to go home, but redeveloped chest discomfort and shortness of breath and was brought to the [facility] Emergency Room. The patient has had multiple hospitalizations for chest pain and gives a history of previous MIs and previous cardiac catheterizations. He apparently had been admitted to the hospital back in February and at that time, the hospitalist checked with his primary bdr and the patient apparently has had a relatively recent cardiac catheterization which showed nonobstructive cardiac disease. In any event, the patient has ongoing chest pain and did undergo nuclear stress testing noted above. The patient continues to complain of intermittent chest discomfort. There is an indication that the patient may be a narcotic seeking and has not been given any additional medications other than in the usual medications that the patient takes on a regular basis. HE STATES HE IS ALLERGIC TO ASPIRIN AND NITROGLYCERIN, NSAID'S and says that tramadol has been ineffective for him. He has stated that he has had suicide thoughts on several occasions and has been evaluated twice at [facility] and once at [place] by psychiatry and has been cleared for home discharge with follow up with his usual mental health services back in his home area. Because of his ongoing chest pain, it was felt that he should have cardiac catheterization and Dr. Reynolds arranged this to be performed at [facility]. Dictated by: Ayaan Torres M.D. ELECTRONICALLY SIGNED 07/29/14914 T: SVETLANA 4 7 //ivnm// //add1// //add3// //add2// [id number] documented in this encounter Progress Notes * Ayaan Torres MD - 11/16/2014 9:49 AM EDT [facility] Name: CHARLIE HAYWOOD [facility] MR # [id number] [facility] : [birth year] Age: 38 Sex: M ADM Shahla PATIENT CARE REFERRAL PAGE 1 Location: [facility] Room: [facility] Admit Date: 07/26/14 - cc: Ayaan Torres M.D. _ PAGE 1 PATIENT CARE REFERRAL DISCHARGE INFORMATION Disposition Date: 07/29/14 Discharge Diagnosis: Medical Problems Chest pain Coronary artery disease Depression DM II (diabetes mellitus, type II), controlled Hypertension Morbid obesity *VTE Diagnosis? Pt Diagnosed with VTE? No *Stroke Diagnosis? Pt Diagnosed with Stroke? No DIET & ACTIVITY Diet Cardiac Activity As Tolerated FOLLOW UP/ORDERS Follow Up With: Primary Care in 1 Week OXYGEN/DME/SUPPLIES *Home O2: Does patient need Home O2? No PT/OT/ST Weight Bearing Full weight bearing Rehab Potential Fair CERTIFICATION When Applicable Service(s) needed: No - I certify that CHARLIE HAYWOOD is under my care (or has been referred to another physician having professional knowledge of the patient's condition) and is home bound except when recieving outpatient services and requires: - OR documented in this encounter Plan of Treatment Not on file documented as of this encounter Procedures Procedure Name Priority Date/Time Associated Diagnosis Comments POCI GLUCOSE Routine 07/29/2014 11:00 AM EDT POCI GLUCOSE Routine 07/29/2014 7:17 AM EDT ECG 12-LEAD Routine 07/29/2014 6:24 AM EDT documented in this encounter Results * (ABNORMAL) POCT Glucose (07/29/2014 11:00 AM EDT) Glucose, POC 139(H) 74 - 118 CONVERS ION FROM [employer] Comment:Resulted using [employer] POC Software 07/29/2014 11:0 0 AM EDT 07/29/2014 11:31 AM EDT us Toney Cat MD POCT ORDERABLES - DEVICE Final Result Performing Organization Address [facility] de Phone Number CONVERSION FROM [employer] * POCT Glucose (07/29/2014 7:17 AM EDT) Glucose, POC 97 74 - 118 CONVERS ION FROM [employer] Comment:Resulted using [employer] POC Software 07/29/2014 7:17 AM EDT 07/29/2014 7:26 AM EDT us Ayaan Torres MD POCT ORDERABLES - DEVICE Final Result Performing Organization Address [facility] Co de Phone Number CONVERSION FROM [employer] * ECG 12 lead (07/29/2014 6:24 AM EDT) 07/29/2014 6:24 AM EDT Narrative CONVERSION FROM [facility] - 07/29/2014 6:59 PM EDT [facility] ?Name: ??CHARLIE HAYWOOD ?MR # ?? [id number] EKG REPORT ? PCP: ??NO MD ?Ord MD: ??Jc Inman M.D. ?: ??[birth year] ??Age: 38 ?? Sex: M ? DIS Shahla ?Location: ??*ST1 ?S148-A ?Exam Date: ??07/29/14 cc: ??Charlie Reynolds M.D. ? Jc Inman M.D. ? Jc Inman M.D. Test Reason : Chest pain Blood Pressure : / mmHG Vent. Rate : 061 BPM ? Atrial Rate : 061 BPM ?? P-R Int : 164 ms ?QRS Dur : 098 ms ?QT Int : 408 ms ? P-R-T Axes : 000 011 041 degrees ?? QTc Int : 410 ms Normal sinus rhythm Normal ECG When compared with ECG of 28-JUL-2014 12:28, (Unconfirmed) No significant change was found Confirmed by Skye Reynolds Michael ([id number]) on 07/29/2014 6:59:30 PM Referred By: ? Confirmed By:Charlie Reynolds M.D. Procedure Note Charlie Reynolds MD - 11/08/2014 [employer] Name: CHARLIE HAYWOOD MR # [id number] EKG REPORT PCP: SWAPNA CHATMAN Ord MD: Jc Inman M.D. : [birth year] Age: 38 Sex:M DISINo Location: *[address] Exam Date: 07/29/14 cc: Skye Daley William, M.D. William Wilson, M.D. Test Reason : Chest pain Blood Pressure : / mmHG Vent. Rate : 061 BPM Atrial Rate : 061 BPM P-R Int : 164 ms QRS Dur : 098 ms QT Int : 408 ms P-R-T Axes : 000 011 041 degrees QTc Int : 410 ms Normal sinus rhythm Normal ECG When compared with ECG of 28-JUL-2014 12:28, (Unconfirmed) No significant change was found Confirmed by Skye Reynolds Michael ([id number]) on 07/29/2014 6:59:30 PM Referred By: Confirmed By:Charlie Reynolds M.D. us Jc Inman MD ECG ORDERABLES Final Result CONVERSION FROM [employer] documented in this encounter Visit Diagnoses Not on filedocumented in this encounter Care Teams Car Pre Cooler Relationship Specialty Start Date End Date None, Pcp, PCP - General 07/28/14 01/13/19 South Khanna MD [address] [place] [address] PCP - General 01/14/19 None, MD Baldemar 07/28/14 documented as of this encounter
--- OUTSIDE RECORDS SUMMARY | 2024-05-28 13:52 | XMS_ITS | Clinical Summary ---
Author Organization [facility] Address [address] [place] [address] Care Team Providers Care Welding Machine Operator Name Role Phone Pcp, No Primary Care Provider Unavailabl e Allergies Active Allergy Reactions Criticality Noted Date Comments Amoxicillin Unknown 08/12/2020 Aspirin Difficulty breathing High 08/12/2020 stop breathing Ibuprofen Unknown 08/12/2020 Nitroglycerin Anaphylaxis High 08/12/2020 Acetaminophen Unknown 08/12/2020 Medications Xarelto 20 mg tablet Take 20 mg by mouth 1 (one) time each day. 06/28/2020 Active Immunizations Immunization Administration Dates Next Due Moderna SARS-CoV-2 Vaccination 08/11/2020 Social History Tobacco Use Types Packs/Day Years Used Date Smoking Tobacco: Never Assessed Sex and Gender Information Value Date Recorded Sex Assigned at Not on file Legal Sex Male 12:32 AM EDT Gender Identity Not on file Sexual Orientation Not on file Last Filed Vital Signs Vital Sign Reading Time Taken Comments Blood Pressure 130/70 08/12/2020 4:30 AM EDT Pulse 78 08/12/2020 4:30 AM EDT Temperature 36.9 ??C (98.4 ??F) 08/12/2020 12:50 AM E DT Respiratory Rate 16 08/12/2020 4:30 AM EDT Oxygen Saturation 96% 08/12/2020 4:30 AM EDT Inhaled Oxygen Concentration - - Weight 140.2 kg (309 lb) 08/12/2020 12:50 AM EDT Height 177.8 cm (5' 10 ) 08/12/2020 12:50 AM EDT Body Mass Index 44.34 08/12/2020 12:50 AM EDT Plan of Treatment Health Maintenance Due Date Last Done Comments CT Colonography 1975 Colonoscopy 1975 Colorectal Cancer Screening 1975 FIT-DNA 1975 FIT 1976 FOBT 1975 Sigmoidoscopy 1975 Medicare Annual Wellness Visit 1994 Tdap and Td Vaccines Adult 08/01/1995 COVID-19 Vaccine (2 - 2023-2 5 season) 2023 08/11/2020 Influenza Vaccine (#1) 2023 HIB Vaccines Aged Out No longer eligi ble based on patient's age to complete this topic HPV Vaccines Aged Out No longer eligi ble based on patient's age to complete this topic Hepatitis A Vaccines Aged Out No long er eligible based on patient's age to complete this topic IPV Vaccines Aged Out No longer eligi ble based on patient's age to complete this topic Meningococcal Vaccine Aged Out No jossy radu eligible based on patient's age to complete this topic Pneumococcal Vaccine: Peds ( 0 to 5 Yrs) and At-Risk Pts (6 to 49 Yrs) Aged Out No lo nger eligible based on patient's age to complete this topic RSV <20 Months Aged Out No longer carolin gible based on patient's age to complete this topic Insurance MANAGED MEDICARE GENERIC Care Teams Welding Machine Operator Relationship Specialty Start Date End Date Pcp, [place] [address] PCP - General 08/12/20
--- OUTSIDE RECORDS SUMMARY | 2024-05-28 13:52 | XMS_ITS | Clinical Summary ---
Author Organization [facility] Address [address] [place] [phone] Phone Care Team Providers Care Patternmaker Apprentice Metal Name Role Phone Pcp, None MD Primary Care Provider Unavailabl e Allergies Active Allergy Reactions Criticality Noted Date Comments Acetaminophen Anaphylaxis,Hives High 04/03/2016 Amoxicillin 04/14/2016 Other reaction(s): Hives; Resp Distress Aspirin Hives 02/14/2016 Pt sts he gets hives and stops breathing. Fish-Derived Products Anaphylaxis High 06/26/2017 Latex Rash Low 06/26/2017 Ibuprofen Anaphylaxis,Hives High 02/14/2016 Nitroglycerin Hives,Anaphylaxis High 02/14/2016 Poultry Meal Anaphylaxis High 04/05/2016 Shellfish-Derived Products Anaphylaxis High 06/26/2017 Medications Medication Sig Dispensed Refills Start Date End Date Status ferrous sulfate 325 (65 FE) MG tablet Take 325 mg by mouth daily with breakfast. Active QUEtiapine (SEROquel) 400 MG tablet Take 400 mg by mouth nightly. Active traZODone (DESYREL) 150 MG tablet Take 200 mg by mouth nightly Active famotidine (PEPCID) 20 MG tablet Take 20 mg by mouth 2 (two) times a day Active levothyroxine (SYNTHROID, LEVOTHROID) 25 MCG tablet Take 25 mcg by mouth every morning before breakfast Active TraZODone & Diet Manage Prod (TRAZAMINE PO) Take by mouth Active carbidopa-levodopa (SINEMET) 25-100 MG per tablet Take 1 tablet by mouth 3 (three) times a day Active Multiple Vitamins-Minerals (multivitamins with minerals) Take by mouth daily Activ e rivaroxaban (XARELTO) 20 MG tablet Take 20 mg by mouth daily with dinner Active buPROPion XL (WELLBUTRIN XL) 150 MG 24 hr tablet Take 150 mg by mouth Every morning Active ipratropium-albuterol (DUO-NEB) 0.5-2.5 mg/mL nebulizer Inhale 3 mL 4 (four) times a day Active tiotropium (SPIRIVA) [address] 1 capsule into inhaler and inhale 2 (two) times a day as needed 04/04/2017 Active vitamin B-12 (CYANOCOBALAMIN) 1000 MCG tablet Take 1,000 mcg by mouth daily 10/06/2021 Active Active Problems Problem Noted Date Diagnosed Date MDD (major depressive disorder) 10/15/2021 Psychiatric problem 10/15/2021 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 06/27/2017 Elevated liver enzymes 06/27/2017 Coronary artery disease of n ative artery of [place] heart with stable angina pectoris 06/27/2017 H/O right coronary artery stent placement 2017 Tobacco abuse 06/27/2017 Episode of recurrent major depressive disorder 0 06/27/2017 History of suicidal ideation 06/27/2017 Noncompliance with diet and medication regimen 0 06/27/2017 Vitamin D deficiency 06/27/2017 Hypothyroidism due to acquired atrophy of thyroi d 06/27/2017 COPD (chronic obstructive pulmonary disease) Diabetes mellitus 06/26/2017 VA, old 06/26/2017 PTSD (post-traumatic stress disorder) 06/26/2017 Chest pain with high risk of acute coronary synd nova 09/07/2016 Mixed personality disorder 02/18/2016 Bipolar 1 disorder, mixed, partial remission 12/2015 Resolved Problems Problem Noted Date Diagnosed Date Resolved Date ACS (acute coronary syndrome) 02/15/2016 02/16/2016 Immunizations Name Administration Dates Next Due Influenza (IM) Preservative Free 02/19/2016 Pneumococcal Polysaccharide-23(Pneumovax) 2015 Family History Medical History Relation Name Comments Asthma Brother Depression Brother Early Brother dies of bone de sease Heart disease Brother Hyperlipidemia Brother Hypertension Brother Learning disabilities Brother Mental illness Brother defects Daughter Asthma Father COPD Father Cancer Father Depression Father Heart disease Father Hyperlipidemia Father Hypertension Father Asthma Mother COPD Mother Cancer Mother Depression Mother Diabetes Mother Heart disease Mother Hyperlipidemia Mother Hypertension Mother Stroke Mother Vision loss Mother Relation Name Status Comments Brother Daughter Father Mother Social History Tobacco Use Types Packs/Day Years Used Date Smoking Tobacco: Former Cigarettes 2 1 1 04/15/2012 - 02/13/2014 Smokeless Tobacco: Never Tobacco Cessation:Counseling Given: Yes Alcohol Use Standard Drinks/Week Comments No 0 (1 standard drink = 0.6 oz pur e alcohol) Humiliation, Afraid, Rape, and Kick questionnair e Answer Date Recorded Within the last year, have y ou been afraid of your partner or ex-partner? No 10/15/2021 Within the last year, have y ou been humiliated or emotionally abused in other ways by your partner or ex-partner? No Within the last year, have y ou been kicked, hit, slapped, or otherwise physically hurt by your partner or ex-partner? No 10/15/2021 Within the last year, have y ou been raped or forced to have any kind of sexual activity by your partner or ex-partner? No 10/15/2021 Social Connection and Isolation Panel [NHANES] A nswer Date Recorded In a typical week, how many times do you talk on the phone with family, friends, or neighbors? Twice a week 10/15/2021 How often do you get together with friends or re latives? Twice a week 10/15/2021 How often do you attend yazidi or jainism serv ices? Never 10/15/2021 Do you belong to any clubs o r organizations such as yazidi groups, unions, fraternal or athletic groups, or school groups? No 10/15/2021 How often do you attend meet ings of the clubs or organizations you belong to? Never 10/15/2021 Are you , , di vorced, , never , or living with a partner? Never 10/15/2021 AUDIT-C Answer Date Recorded Q1: How often do you have a drink containing alc ohol? Never 10/15/2021 Average Number of Drinks Not on file 022 Q3: How often do you have si x or more drinks on one occasion? Never 10/15/2021 Overall Financial Resource Strain (CARDIA) Answe r Date Recorded How hard is it for you to pa y for the very basics like food, housing, medical care, and heating? Not very hard 10/15/2021 [facility] - Occupational Stress Questionnaire Answer Date Recorded Do you feel stress - tense, restless, nervous, or anxious, or unable to sleep at night because your mind is troubled all the time - these days? To some extent 10/15/2021 Exercise Vital Sign Answer Date Recorde d On average, how many days pe r week do you engage in moderate to strenuous exercise (like a brisk walk)? 0 days 10/15/2021 On average, how many minutes do you engage in exercise at this level? 0 min 10/15/2021 Hunger Vital Sign Answer Date Recorded Within the past 12 months, y ou worried that your food would run out before you got the money to buy more. Never true 10/16/19 22 Within the past 12 months, t he food you bought just didn't last and you didn't have money to get more. Never true 10/15/2021 PRAPARE - Transportation Answer Date Re corded In the past 12 months, has l ack of transportation kept you from medical appointments or from getting medications? No 12/2021 In the past 12 months, has l ack of transportation kept you from meetings, work, or from getting things needed for daily living? No 10/15/2021 Housing Stability Vital Sign Answer David e Recorded In the last 12 months, was t here a time when you were not able to pay the mortgage or rent on time? No 10/15/2021 In the last 12 months, how many places have you lived? 1 10/15/2021 In the last 12 months, was t here a time when you did not have a steady place to sleep or slept in a chcf (including now)? No 10/15/2021 Sex and Gender Information Value Date Recorded Sex Assigned at Not on file Gender Identity Not on file Sexual Orientation Not on file Last Filed Vital Signs Vital Sign Reading Time Taken Comments Blood Pressure 123/79 10/21/2022 6:24 AM EDT Pulse 79 10/21/2022 6:24 AM EDT Temperature 36.3 ??C (97.4 ??F) 04/21/2022 6:31 AM PS T Respiratory Rate 16 10/21/2022 6:24 AM EDT Oxygen Saturation 93% 10/21/2022 6:24 AM EDT Inhaled Oxygen Concentration - - Weight 118 kg (260 lb) 10/21/2022 4:17 AM EDT Height 177.8 cm (5' 10 ) 04/21/2022 6:31 AM PST Body Mass Index 37.31 04/21/2022 6:31 AM PST Plan of Treatment Health Maintenance Due Date Last Done Comments Diabetes: Dental Exam 1986 Diabetes: Foot Exam 1986 Diabetes: Retinopathy Screening 1986 Diabetes: Urine Protein Screening 08/01/1995 Hepatitis B Vaccines (1 of 3 - 19+ 3-dose series) 08/01/1995 Pneumococcal Vaccine: Pediatrics (0 to 5 Years) and At-Risk Patients (6 to 64 Years) (2 of 2 - PCV) 02/18/2017 02/19/2016, 09/01/2013, 02/15/[address] Colonography 2021 Cologuard [FIT-DNA] 2021 Colorectal Cancer Screening 2021 FIT 2021 FOBT 2021 SIGMOIDOSCOPY 2021 Diabetes: Hemoglobin A1C 01/16/2022 10/16/2021, 06/08 COVID 19 VACCINE ( season) 2023 08/11/2020, 06/07/2020 Influenza Vaccine (#1) 2023 , 01/02/2020, 12/12/2018, Additional history exists HIB VACCINES Aged Out No longer eligi ble based on patient's age to complete this topic HPV VACCINES Aged Out No longer eligi ble based on patient's age to complete this topic Hepatitis A Vaccines Aged Out No long er eligible based on patient's age to complete this topic MENINGOCOCCAL B VACCINE Aged Out No l onger eligible based on patient's age to complete this topic Procedures Procedure Name Priority Date/Time Associated Diagnosis Comments HEMOGLOBIN A1C Routine 10/16/2021 9:48 AM EDT from Last 3 Months or Most Recently Relevant to Health Maintenance Results * (ABNORMAL) Hemoglobin A1c (10/16/2021 9:48 AM EDT) Hgb A1c 5.7(H) 4.0 - 5.6 % 10/16/2021 11:05 AM EDT [facility] EST AVG GLUCOSE 116.89 mg/dL 10/16/2021 11:05 AM EDT [facility] Blood Venipuncture / Unknown 10/16/2021 9:48 AM EDT 10/16/2021 9:54 AM EDT Maggie Brenner MD LAB BLOOD ORDERABLES [facility] [address] [place] [address] from Last 3 Months or Most Recently Relevant to Health Maintenance Advance Directives * Full Code (Latest Code Status on File) Date Activated Date Inactivated Comments 10/15/2021 3:46 PM 04/21/2022 6:30 AM * Full Code Date Activated Date Inactivated Comments 10/15/2021 10:41 AM 10/15/2021 3:46 PM * Full Code Date Activated Date Inactivated Comments 06/25/2017 10:18 PM 09/06/2018 3:08 PM * Full Code Date Activated Date Inactivated Comments 03/03/2017 1:59 PM 06/25/2017 6:07 PM * Full Code Date Activated Date Inactivated Comments 09/07/2016 9:34 PM 09/11/2016 2:26 PM Care Teams Patternmaker Apprentice Metal Relationship Specialty Start Date End Date Pcp, Tyler, PCP - General 03/03/17
--- OUTSIDE RECORDS SUMMARY | 2024-05-28 13:52 | XMS_ITS | Continuity of Care Document ---
Author Organization [facility] Address [address] [place] [address] Phone Care Team Providers Care Doctor Naturopathic Name Role Phone Tommie Thakkar MD Unavailable Unavailable Procedures Procedure Date INITIAL HOSPITAL CARE L HRT ARTERY/VENTRICLE ANGIO SUBSEQUENT HOSPITAL CARE TTE W/DOPPLER COMPLETE SUBSEQUENT HOSPITAL CARE SUBSEQUENT HOSPITAL CARE SUBSEQUENT HOSPITAL CARE SUBSEQUENT HOSPITAL CARE SUBSEQUENT HOSPITAL CARE SUBSEQUENT HOSPITAL CARE SUBSEQUENT HOSPITAL CARE SUBSEQUENT HOSPITAL CARE SUBSEQUENT HOSPITAL CARE SUBSEQUENT HOSPITAL CARE HOSPITAL DISCHARGE DAY SUBSEQUENT HOSPITAL CARE INITIAL HOSPITAL CARE Jul- SUBSEQUENT HOSPITAL CARE SUBSEQUENT HOSPITAL CARE SUBSEQUENT HOSPITAL CARE SUBSEQUENT HOSPITAL CARE Advance Directives Directive Yes / No Effective Date File Name No Information Encounters Encounter Description Practice Location Reason(s) For Visit Diagnoses Date Provider Providers Copied on Encounter INITIAL HOSPITAL CARE [facility], [address], [place], [id number] , [place] tel:[phone] [facility] In Patient No Information 3 Bijan Reilly. [address], [address], [place], [address], [place]. tel:[phone] Referring Provider: Sohail Bustillo, [address], [place], [address] . tel:[phone] SUBSEQUENT [facility], [address], [place], [place], [id number] , [place] tel: [phone] [facility] In Patient Unstable anginaOld myocardial infarctionChronic obstructive pulmonary disease, unspecifiedAcute on chronic systolic (congestive) heart failurePersonal history of other mental and behavioral disordersSuicidal ideationsCOVID-19 [address]ust[address]ail. [address], [place], [place], [id number] , [place]. tel: SUBSEQUENT HOSPITAL [facility], [address], [place], [place], [id number] , [place] tel: [phone] [facility] In Patient Unstable anginaOld myocardial infarctionChronic obstructive pulmonary disease, unspecifiedAcute on chronic systolic (congestive) heart failurePersonal history of other mental and behavioral disordersSuicidal ideationsCOVID- 3 Bustillo Sohail. [address], [place], [place], [id number] , [place]. tel:[phone] INITIAL HOSPITAL CARE [facility], [address], [place], [id number] , [place] tel: [phone] [facility] In Patient Unstable anginaOld myocardial infarctionChronic obstructive pulmonary disease, unspecifiedPresence of cardiac and vascular implant and graft, unspecified [address] Ignacio Baez. [address], [place], [place], [id number] , [place]. tel:[phone] SUBSEQUENT [facility], [address], [place], [place], [id number] , [place] tel: [phone] [facility] In Patient Unstable anginaOld myocardial infarctionChronic obstructive pulmonary disease, unspecifiedAcute on chronic systolic (congestive) heart failurePersonal history of other mental and behavioral disordersSuicidal ideationsCOVID-19 [address], [place], [place], [id number] , [place]. tel:[phone] HOSPITAL DISCHARGE DAY [facility], [address], [place], [place], [id number] , [place] tel: [phone] [facility] In Patient Chronic obstructive pulmonary disease with (acute) exacerbationAcute on chronic combined systolic (congestive) and diastolic (congestive) heart failurePersonal history of other mental and behavioral disordersSuicidal ideations 3 Bustillo Sohail. [address] [place], [id number] , [place]. tel: [phone] SUBSEQUENT [facility], [address] [place], [id number] , [place] tel: [phone] [facility] In Patient Unstable anginaOld myocardial infarctionChronic obstructive pulmonary disease, unspecifiedCoronary angioplasty statusAcute on chronic combined systolic (congestive) and diastolic (congestive) heart failurePersonal history of other mental and behavioral disordersCOVID-19Sui cidal ideations 3 Bustillo Sohail. [address] [place], [id number] , [place]. tel: SUBSEQUENT [facility], [address], [id number] , [place] tel: [phone] [facility] In Patient Unstable anginaOld myocardial infarctionChronic obstructive pulmonary disease, unspecifiedAcute on chronic systolic (congestive) heart failurePersonal history of other mental and behavioral disordersSuicidal ideationsCOVID-19 3 Bustillo Sohail. [address] [place], [id number] , [place]. tel:[phone] SUBSEQUENT [facility], [address], [place], [id number] , [place] tel: [phone] [facility] In Patient Unstable anginaOld myocardial infarctionChronic obstructive pulmonary disease with (acute) exacerbationAcute on chronic combined systolic (congestive) and diastolic (congestive) heart failurePersonal history of other mental and behavioral disordersSuicidal ideations [address]ust[address]ail[address], [place], [place], [id number] , [place]. tel: [phone] SUBSEQUENT [facility], [address], [place], [place], [id number] , [place] tel: [phone] [facility] In Patient Unstable anginaOld myocardial infarctionChronic obstructive pulmonary disease, unspecifiedCoronary angioplasty statusAcute on chronic combined systolic (congestive) and diastolic (congestive) heart failure [address], [place], [place], [id number] , [place]. tel: [phone] SUBSEQUENT [facility], [address], [place], [place], [id number] , [place] tel: [phone] [facility] In Patient Unstable anginaOld myocardial infarctionChronic obstructive pulmonary disease with (acute) exacerbationAcute on chronic combined systolic (congestive) and diastolic (congestive) heart failurePersonal history of other mental and behavioral disordersSuicidal ideations [address], [place], [place], [id number] , [place]. tel: SUBSEQUENT [facility], [address], [place], [place], [id number] , [place] tel: [phone] [facility] In Patient Unstable anginaOld myocardial infarctionChronic obstructive pulmonary disease, unspecifiedAcute on chronic systolic (congestive) heart failurePersonal history of other mental and behavioral disordersSuicidal ideationsCOVID- 3 Bustillo Sohail. [address], [id number] , [place]. tel: [phone] SUBSEQUENT [facility], [address], [place], [place], [id number] , [place] tel: [phone] [facility] In Patient Unstable anginaOld myocardial infarctionChronic obstructive pulmonary disease, unspecifiedAcute on chronic systolic (congestive) heart failurePersonal history of other mental and behavioral disordersSuicidal ideationsCOVID- [address], [place], [place], [id number] , [place]. tel: [phone] SUBSEQUENT [facility], [address], [place], [place], [id number] , [place] tel: [phone] [facility] In Patient Unstable anginaOld myocardial infarctionChronic obstructive pulmonary disease, unspecifiedCoronary angioplasty statusAcute on chronic combined systolic (congestive) and diastolic (congestive) heart failurePersonal history of other mental and behavioral disordersCOVID- 3 Bustillo Sohail. [address] [place], [id number] , [place]. tel: [phone] SUBSEQUENT HOSPITAL CARE [facility], [address] [place], [id number] , [place] tel: [phone] [facility] In Patient Chronic obstructive pulmonary disease with (acute) exacerbationAcute on chronic combined systolic (congestive) and diastolic (congestive) heart failurePersonal history of other mental and behavioral disordersSuicidal ideations 3 Bustillo Sohail. [address] [place], [id number] , [place]. tel: [phone] SUBSEQUENT HOSPITAL CARE [facility], [address] [place], [id number] , [place] tel: [phone] [facility] In Patient Unstable anginaOld myocardial infarctionChronic obstructive pulmonary disease, unspecifiedAcute on chronic systolic (congestive) heart failurePersonal history of other mental and behavioral disordersSuicidal ideationsCOVID- 3 Bustillo Sohail. [address] [place], [id number] , [place]. tel: [phone] SUBSEQUENT HOSPITAL CARE [facility], [address] [place], [id number] , [place] tel: [phone] [facility] In Patient Unstable anginaOld myocardial infarctionChronic obstructive pulmonary disease, unspecifiedAcute on chronic systolic (congestive) heart failurePersonal history of other mental and behavioral disordersSuicidal ideationsCOVID- 3 Bustillo Sohail. [address], [id number] , [place]. tel: [phone] Family History Family Member Type Diagnosis Age At Onset No Information Payers Payer name Insurance type Covered libertarian ID Gayathri pruitt(s) [facility] [id number] [facility] [employer] IPA [id number] Social History Type Description Quantity Date [...]
--- OUTSIDE RECORDS SUMMARY | 2024-05-28 13:52 | XMS_ITS | Encounter Summary ---
Author Organization Lizzeth Maier [facility] Address [address] [place] [address] Care Team Providers Care Electrotyper Apprentice Name Role Phone None, Pcp Primary Care Provider Unavailabl e None, Pcp Unavailable Unavailable South Khanna MD Primary Care Provider Encounter Details Date Type Department Care Team (Late st Contact Info) Description 07/27/2014 Clinical Conversion Encounter GENERAL CONVERSION Ayaan Torres [...] Torres MD - 11/24/2014 7:51 AM EDT [facility] Name: CHARLIE HAYWOOD [facility] MR # [id number] : [birth year] Age: 38 Sex: M PROGRESS NOTE ADM IN Location: *[facility] Room: [facility] cc: Ayaan Torres M.D. -- Subjective Date/Time Note Initiated NOTE DATE: 07/27/14 TIME: 1212 Review of Systems Events since last encounter C/O INTERMITTENT C/P COMES AND GOES General Appetite. Denies: Chills, Night sweats, Fatigue, Malaise, Other. HEENT Denies: Head Aches, Dysphasia, Sinus Congestion, Post Nasal Drip, Sore Throat. Pulmonary Denies: Dyspnea, Cough, Pleuritic Chest Pain. Cardiovascular Chest Pain. Denies: Palpitations, Orthnopnea, Paroxysmal Noc. Dyspnea, Edema, Lt Headedness. Gastrointestinal Denies: Nausea, Vomiting, Abdominal Pain, Diarrhea, Constipation, Melena, Hematochezia. Genitourinary Denies: Dysuria. Musculoskeletal Arm Pain (LT ASSOC WITH HIS C/P). Neurological Denies: Weakness, Confusion, Seizures. Objective Exam Vital Signs and I& O Vital Signs Result Date Time Pulse Ox 99 07/27 1052 B/P 105/65 07/27 1052 Temp 98.2 07/27 1052 Pulse 88 07/27 1052 Resp 16 07/27 1052 O2 Flow Rate 2.5 07/27 0306 07/27 0700 Intake Total Output Total 300 Balance -300 General Appearance Alert, Oriented X3, Cooperative, No Acute Distress HEENT Atraumatic, PERRLA, EOMI Lungs Clear to Auscultation Neck Supple, No JVD, No LAD Cardiovascular Regular Rate, No Murmurs Abdomen Normal Bowel Sounds, Soft, No Tenderness, No Hepatospenomegaly, No Masses Extremities No Clubbing, No Edema Skin No Rashes Neurological Normal Speech Psych/Mental Status Mood NL Results LAB/KEVIN & RAD Laboratory Tests 07/27 0700 Hematology WBC (3.8 - 10.5 K/ul) 5.9 Hgb (12.7 - 16.7 g/dl) 10.3 Hct (38.1 - 50.1 %) 33.1 Plt Count (150 - 450 K/ul) 307 Laboratory Tests 07/27 0700 Coagulation PT (12.2 - 14.2 SECONDS) 28.2 PTT (22.5 - 35.5 SECONDS) 30.9 Laboratory Tests 07/26 07/26 07/26 07/26 07/27 1630 1635 1946 2047 0700 Chemistry Sodium (134 - 145 mmol/L) 141 Potassium (3.5 - 5.1 mmol/L) 4.6 Chloride (96 - 108 mmol/L) 106 Carbon Dioxide (22 - 32 mmol/L) 24 Anion Gap (6 - 16) 11 BUN (6 - 23 mg/dL) 15 Creatinine (0.5 - 1.2 mg/dL) 0.7 Kidney Disease Stage (>60 ml/min) > 60 BUN/Creatinine Ratio (6 - 25 RATIO) 21 Glucose Sample Type RANDOM Glucose (74 - 118 mg/dL) 75 POC Glucose (74 - 118) 175 145 Calcium (8.5 - 10.5 mg/dL) 8.4 Troponin T (<0.03 ng/ml) < 0.01 < 0.01 Specimen Hemolysis Normal Coagulation PT (12.2 - 14.2 SECONDS) 28.2 INR (0.90 - 1.10) 2.67 PTT (22.5 - 35.5 SECONDS) 30.9 Hematology WBC (3.8 - 10.5 K/ul) 5.9 RBC (4.1 - 5.6 M/ul) 4.17 Hgb (12.7 - 16.7 g/dl) 10.3 Hct (38.1 - 50.1 %) 33.1 MCV (82 - 98 fl) 79.4 MCH (25 - 35 pg) 24.7 MCHC (33 - 36 g/dl) 31.1 RDW (11.5 - 14.5 %) 18.6 Plt Count (150 - 450 K/ul) 307 MPV (6 - 14 fl) 10.8 Neut Rel Value (50 - 70 %) 42 Lymph Rel Value (25 - 40 %) 45 [place] Rel Value (4 - 12 %) 11 Eos Rel Value (0 - 3 %) 3 Baso Rel Value (0 - 2 %) 1 Absolute Lymphs (auto) (1.5 - 4.0 2.6 K/ul) Absolute Neutrophils (2.2 - 8.6 K/ul) 2.5 Absolute Monocytes (0.16 - 1.26 K/ul) 0.6 Absolute Eosinophils (0.15 - 0.30 0.2 K/ul) Absolute Basophils (0.0 - 0.21 K/ul) 0.0 Toxicology Urine Opiates Screen (NEGATIVE) POSITIVE Ur Buprenorphine (NEGATIVE) NEGATIVE Ur Oxycodone Screen (NEGATIVE) NEGATIVE Urine Methadone Screen (NEGATIVE) NEGATIVE Ur Propoxyphene Screen (NEGATIVE) NEGATIVE Ur Barbiturates Screen (NEGATIVE) POSITIVE Ur Amphetamines Screen (NEGATIVE) NEGATIVE U Benzodiazepines Scrn (NEGATIVE) NEGATIVE Urine Cocaine Screen (NEGATIVE) NEGATIVE U Cannabinoids Screen (NEGATIVE) NEGATIVE Urine Alcohol (NEGATIVE) NEGATIVE Urines Ur Creatinine mg/dL (mg/dL) 197.2 07/27 07/27 0705 1126 Chemistry POC Glucose (74 - 118) 88 90 Assessment/Plan Problem List Medical Problems Chest pain Depression DM II (diabetes mellitus, type II), controlled Hypertension Morbid obesity A&P: TROPONINS NEGATIVE SEEN BY CARDIOLOGY AND 2-DAY STRESS TEST PROTOCOL ORDERED SEEN BY PSYCHIATRY AND 1:1 DC'D AND CLEARED FOR DC FROM [facility]AL [facility]ERSPECTIVE Report Electronically Signed By: Ayaan Torres M.D. Electronic Signature Date/Time: 07/27/14 1224 documented in this encounter Plan of Treatment Not on file documented as of this encounter Visit Diagnoses Not on filedocumented in this encounter Care Teams Electrotyper Apprentice Relationship Specialty Start Date End Date None, MD Baldemar PCP - General 07/28/14 01/13/19 South Khanna MD [address] [place] [id number] PCP - General 01/14/19 None, MD Baldemar 07/28/14 documented as of this encounter
--- OUTSIDE RECORDS SUMMARY | 2024-05-28 13:52 | XMS_ITS | Encounter Summary ---
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 Subjective Date/Time Note Initiated NOTE DATE: 07/29/14 TIME: 1208 Review of Systems Events since last encounter PT OK FOR DC FROM HOSPITAL SEE CARDIOLOGY NOTE OF 07/29/14 Pulmonary Dyspnea. Denies: Cough, Pleuritic Chest Pain. Cardiovascular Denies: Chest Pain, Palpitations, Orthnopnea, Paroxysmal Noc. Dyspnea, Edema, Lt Headedness. Gastrointestinal Denies: Nausea, Vomiting, Abdominal Pain, Diarrhea, Constipation, Melena, Hematochezia. Objective Exam Vital Signs and I& O Vital Signs Result Date Time Pulse Ox 95 07/29 1047 B/P 100/64 07/29 1047 Temp 98.3 07/29 1047 Pulse 73 07/29 1047 Resp 18 07/29 1047 O2 Flow Rate 2 07/28 1203 07/29 0700 Intake Total Output Total 750 Balance -750 General Appearance Alert, Oriented X3, Cooperative, No Acute Distress HEENT Atraumatic, PERRLA, EOMI Lungs Clear to Auscultation Neck Supple, No JVD, No LAD Cardiovascular Regular Rate, No Murmurs Abdomen Normal Bowel Sounds, Soft, No Tenderness, No Hepatospenomegaly, No Masses Extremities No Clubbing, No Cyanosis, No Edema Results LAB/KEVIN & RAD Laboratory Tests 07/28 07/28 07/29 1555 2119 0717 Chemistry POC Glucose (74 - 118) 82 149 97 Assessment/Plan Problem List Medical Problems Chest pain Coronary artery disease Depression DM II (diabetes mellitus, type II), controlled Hypertension Morbid obesity A&P: TROPONINS NEGATIVE EKG HAS BEEN NORMAL WITH SB SEE INTERVENTIONAL CARDIOLOGY CONSULTATION OK FOR DC SOCIAL SERVICE NEEDED TO FACILITATE Report Electronically Signed By: Ayaan Torres M.D. Electronic Signature Date/Time: 07/29/14 1211 documented in this encounter Plan of Treatment Not on file documented as of this encounter Visit Diagnoses Not on filedocumented in this encounter Care Teams Solid Glass Rod Dowel Machine Operator Relationship Specialty Start Date End Date None, MD Baldemar PCP - General 07/28/14 01/13/19 South Khanna MD [address] [place] [id number] PCP - General 01/14/19 None, Pcp, 07/28/14 documented as of this encounter
[2024-05-28 13:53] VITALS: BP 135/73; PULSE 77; RESP 18; TEMP 37.2; O2SAT 97; BMI 38.1
--- OUTSIDE RECORDS SUMMARY | 2024-05-28 13:53 | XMS_ITS ---
Author Organization [facility] Address [address] [place] [address] Care Team Providers Care Lime Boiler Name Role Phone Jus Avery Unavailable [phone] REASON FOR VISIT NEED UPDATED ADDRESS Encounters Encounter Location Date Provider Diagnosis [facility] [address] [place] [address] 07/18/2023 Jus Avery Plan Of Treatment No Information Progress Notes * Charlie HAYWOODDOB: [birth year] (47 yo M)Acc No.[id number]:07/18/2023 Patient:?HAYWOODCharlie Jameson :1975???Age:47 Y???Sex:Male Address:[address] [place] [id number] * true * Date:? Generated for Lopez mixon/Shaun/eTransmitting on:?05/28/2024 11:53 AM MST
--- OUTSIDE RECORDS SUMMARY | 2024-05-28 13:53 | XMS_ITS | Clinical Summary ---
Author Organization [facility] Address [address] [place] [address] Phone Care Team Providers Care Guest Services Representative Name Role Phone Physician, No Pcp Primary Care Provider Unavaila ble Allergies Active Allergy Reactions Criticality Noted Date Comments Amoxicillin High 01/01/2022 Aspirin Anaphylaxis High 12/31/2021 Ibuprofen High 01/01/2022 Nitroglycerin Anaphylaxis High 12/31/2021 Acetaminophen High 01/01/2022 Medications lisinopriL (PRINIVIL,ZESTRIL) 5 mg tablet Take 1 tablet (5 mg total) by mouth 1 (one) time each day. Active pantoprazole (PROTONIX) 40 mg EC tablet Take 40 mg by mouth 1 (one) time each day before breakfast. Do not crush, chew, or split. Active traZODone (DESYREL) 100 mg tablet Take 200 mg by mouth at bedtime. Last filled per [facility] 09/29 Active buPROPion XL (WELLBUTRIN XL) 300 mg 24 hr tablet Take 300 mg by mouth 1 (one) time each day. Do not crush, chew, or split. Active metoprolol succinate (TOPROL-XL) 25 mg 24 hr tablet Take 0.5 tablets (12.5 mg total) by mouth 1 (one) time each day. Do not crush or chew. 15 each 01/02/2022 1:58 PM EDT 01/04/20 22 Active levothyroxine sodium (TIROSINT) 25 mcg capsule Take 25 mcg by mouth 1 (one) time each day. Active metFORMIN (GLUCOPHAGE) 500 mg tablet Take 500 mg by mouth 2 (two) times a day with meals. Active atorvastatin (LIPITOR) 80 mg tablet Take 80 mg by mouth at bedtime. Active albuterol HFA (PROAIR HFA ; PROVENTIL HFA ; VENTOLIN HFA) 90 mcg/actuation inhaler Inhale 2 puffs by mouth Every 4 hours as needed for shortness of breath. 11/19/19 Active amLODIPine (NORVASC) 5 mg tablet Take 1 tablet (5 mg total) by mouth 1 (one) time each day. 01/22/20 Active ARIPiprazole (ABILIFY) 5 mg tablet Take 1 tablet (5 mg total) by mouth 1 (one) time each day. 06/20/19 Active benztropine (COGENTIN) 1 mg tablet Take 1 tablet (1 mg total) by mouth 1 (one) time each day. Active carbidopa-levodopa (SINEMET) 25-250 mg per tablet Take 1 tablet by mouth 3 times daily. 05/20/19 Active cyanocobalamin (VITAMIN B-12) 1,000 mcg tablet Take 1 tablet (1,000 mcg total) by mouth daily. 02/15/20 Active divalproex (DEPAKOTE ER) 500 mg 24 hr tablet Take 1 tablet (500 mg total) by mouth 1 (one) time each day. Active famotidine (PEPCID) 20 mg tablet Take 1 tablet (20 mg total) by mouth 1 (one) time each day. 03/05/20 025 Active ferrous gluconate (FERGON) 324 mg (37.5 mg iron) tablet Take 1 tablet (324 mg total) by mouth 1 (one) time each day. 03/11/20 Active furosemide (LASIX) 40 mg tablet Take 0.5 tablets (20 mg total) by mouth daily. 01/22/20 025 Active metoprolol tartrate (LOPRESSOR) 25 mg tablet Take 1 tablet (25 mg total) by mouth 2 times daily. 06/19/19 Active potassium chloride (KLOR-CON M20) 20 mEq CR tablet Take 1 tablet (20 mEq total) by mouth 1 (one) time each day. 01/22/20 Active primidone (MYSOLINE) 50 mg tablet Take 1 tablet (50 mg total) by mouth daily. 01/17/20 025 Active QUEtiapine (SEROquel) 300 mg tablet Take 1 tablet (300 mg total) by mouth at bedtime. 05/20/19 Active QUEtiapine (SEROquel) 25 mg tablet Take 1 tablet (25 mg total) by mouth 2 times daily. 01/21/20 Active sertraline (ZOLOFT) 100 mg tablet Take 1 tablet (100 mg total) by mouth daily. 01/10/20 Active sucralfate (CARAFATE) 1 gram tablet Take 1 tablet (1 g total) by mouth 2 times daily. 05/20/19 Active tamsulosin (FLOMAX) 0.4 mg 24 hr capsule Take 1 capsule (0.4 mg total) by mouth daily. 01/22/20 Active tiotropium (Spiriva Respimat) 1.25 mcg/actuation inhalation spray Inhale 2 puffs by mouth daily. 02/25/20 Active atorvastatin (LIPITOR) 40 mg tablet Take 1 tablet (40 mg total) by mouth daily. 01/10/20 Active buPROPion (WELLBUTRIN) 75 mg tablet Take 4 tablets (300 mg total) by mouth 2 times daily. Active clopidogreL (PLAVIX) 75 mg tablet Take 1 tablet (75 mg total) by mouth daily. 05/20/19 Active levothyroxine (SYNTHROID, LEVOTHROID) 25 mcg tablet Take 1 tablet (25 mcg total) by mouth daily. 04/26/19 Active lisinopriL (PRINIVIL,ZESTRIL) 5 mg tablet Take 1 tablet (5 mg total) by mouth daily. 02/04/20 Active metFORMIN XR (GLUCOPHAGE-XR) 500 mg 24 hr tablet Take 1 tablet (500 mg total) by mouth daily. 01/22/20 Active metoprolol succinate (TOPROL-XL) 25 mg 24 hr tablet Take 1 tablet (25 mg total) by mouth 2 times daily. 05/20/19 Active rivaroxaban (Xarelto) 20 mg tablet Take 1 tablet (20 mg total) by mouth 1 (one) time each day with dinner. 03/07/20 Active melatonin 3 mg disintegrating tablet Take 1 tablet (3 mg total) by mouth at bedtime. Active LORazepam (ATIVAN) 1 mg tablet Take 1 tablet (1 mg total) by mouth 1 (one) time each day if needed for anxiety. 05/20/19 Active lidocaine 4 % patch Apply 1 patch topically daily. 01/23/20 Active lacosamide (VIMPAT) 100 mg tablet Take 1 tablet (100 mg total) by mouth 2 times daily. Max Daily Amount: 200 mg 05/20/19 Active insulin detemir (LEVEMIR) 100 unit/mL injection 5 Units at bedtime. Active gabapentin (NEURONTIN) 100 mg capsule Take 1 capsule (100 mg total) by mouth 3 times daily. Active QUEtiapine (SEROquel) 400 mg tablet Take 1 tablet (400 mg total) by mouth at bedtime. 04/26/19 Active QUEtiapine (SEROquel) 100 mg tablet Take 1 tablet (100 mg total) by mouth 2 times daily. 03/12/20 Active haloperidoL (HALDOL) 0.5 mg tablet Take 2 tablets (1 mg total) by mouth 2 (two) times a day. 05/20/19 Active ferrous sulfate 325 mg (65 mg elemental iron) tablet Take 1 tablet (325 mg total) by mouth 1 (one) time each day. Active Breo Ellipta 100-25 mcg/dose inhaler Inhale 1 puff by mouth 1 (one) time each day. 02/25/20 Active cyclobenzaprine (FLEXERIL) 10 mg tablet Take 1 tablet (10 mg total) by mouth 3 times daily as needed. 03/19/20 Active ranolazine (RANEXA) 500 mg 12 hr tablet Take 1 tablet (500 mg total) by mouth 2 (two) times a day. Active clopidogreL (PLAVIX) 75 mg tablet Take 1 tablet (75 mg total) by mouth 1 (one) time each day. Discontin ued(Enter ed in Error) gabapentin (NEURONTIN) 300 mg capsule Take 300 mg by mouth 2 (two) times a day. Last filled per [facility] 09/29 025 Discontin ued(Alter vito therapy) rivaroxaban (XARELTO) 20 mg tablet Take 1 tablet (20 mg total) by mouth 1 (one) time each day with dinner. Take with food. Last filled per [facility] 09/29 025 Discontin ued(Enter ed in Error) haloperidoL (HALDOL) 2 mg tablet Take 1 tablet (2 mg total) by mouth daily. 05/20/19 025 Discontin ued(Alter vito therapy) haloperidoL (HALDOL) 5 mg tablet Take 1 tablet (5 mg total) by mouth 2 times daily. 025 Discontin ued(Alter vito therapy) gabapentin (NEURONTIN) 300 mg capsule Take 1 capsule (300 mg total) by mouth 3 times daily. 025 Discontin ued(Alter vito therapy) Active Problems Problem Noted Date Diagnosed Date Chest pain, unspecified type 01/02/2022 Chest pain 01/01/2022 Schizophrenia 01/01/2022 Bipolar 1 disorder 01/01/2022 CAD (coronary artery disease) 01/01/2022 Encounters Date Type Department Care Team Description 05/26/2024 6:06 PM EST - 05/28/2024 1:[address] [facility] [address] [place] [address] Jus Klein, Jus Newby MD Durkin, Louis J, MD Cheng, Ting Ho Danny, DO Millay, Scot A, MD Precordial pain (Primary Dx); Depression with suicidal ideation; Severe recurrent major depression with psychotic features ([facility]) Discharge Disposition: Another Health Care Institution Not Defined 05/09/2024 7:29 PM EST - 05/09/2024 9:[address] [facility] [address] [place] [id number] Ray Hernandez DO Other chest pain (Primary Dx) Discharge Disposition: Home or Self Care 04/30/2024 8:18 PM EST - 05/01/2024 3:[address] [facility] [address] [place] [id number] Chest pain, unspecified type (Primary Dx) Discharge Disposition: Home or Self Care from Last 3 Months Surgical History Surgery Date Site/Laterality Comments CORONARY ANGIOPLASTY WITH ST ENT PLACEMENT 04/09/1999 - 04/08/2000 GASTRIC BYPASS Medical History Medical History Date Comments Hypertension Diabetes mellitus ([facility]) HLD (hyperlipidemia) DIMITRIS (obstructive sleep apnea) Myocardial infarction ([facility]) x4 Bipolar disorder ([facility]) Schizophrenia ([facility]) PTSD (post-traumatic stress disorder) Morbid obesity (CMS/HCC) A-fib ([facility]) Pulmonary embolism ([facility]) 2020 Family History Medical History Relation Name Comments Coronary artery disease Mother Relation Name Status Comments Mother Social History Tobacco Use Types Packs/Day Years Used Date Smoking Tobacco: Never Smokeless Tobacco: Never Sex and Gender Information Value Date Recorded Sex Assigned at Male 04/30/2024 8:52 PM EST Legal Sex Male 7:41 PM EDT Gender Identity Male 04/30/2024 8:52 PM EST Sexual Orientation Choose not to disclose 2024 3:54 PM EST Sexual Orientation Straight 05/05/2024 3: 54 PM EST Obstetrics History Last Filed Vital Signs Vital Sign Reading Time Taken Comments Blood Pressure 138/75 05/28/2024 12:56 PM EST Pulse 96 05/28/2024 12:56 PM EST Temperature 36.7 ??C (98.1 ??F) 05/28/2024 12:[address] Respiratory Rate 18 05/28/2024 12:56 PM EST Oxygen Saturation 97% 05/28/2024 12:56 PM EST Inhaled Oxygen Concentration - - Weight 136 kg (300 lb) 05/26/2024 5:59 PM EST Height 177.8 cm (5' 10 ) 05/26/2024 5:59 PM EST Body Mass Index 43.05 05/26/2024 5:59 PM EST Plan of Treatment Health Maintenance Due Date Last Done Comments Diabetes: Annual Foot Exam 1986 Diabetes: Annual Retina Eye Exam 1986 DTaP,Tdap,and Td Vaccines (1 - Tdap) 08/01/1995 Hepatitis A Vaccines (1 of 2 - Risk 2-dose series) 08/01/1995 Hepatitis B Vaccines (1 of 3 - 19+ 3-dose series) 08/01/1995 Pneumococcal Vaccine: Pediatrics (0 to 5 Years) and At-Risk Patients (6 to 64 Years) (2 of 2 - PCV) 01/12/2018 01/12/2017, 02/19/2016, 09/01/2013, Additional history exists Colorectal Cancer Screening: Colonoscopy 12/31/2021 Depression Screening 12/31/2021 Medicare Annual Wellness Visit 12/31/2021 Social Influencers of Health Screening 12/31/2021 Diabetes: Annual Urine Albumin-Creatinine Ratio (uACR) 03/29/2022 COVID-19 Vaccine ( season) 2023 03/30/2021, 08/20/2020, 06/07/2020 Influenza Vaccine (#1) 2023 , 01/02/2020, 12/12/2018, Additional history exists Diabetes: Blood Sugar Control Test (HGBA1C) 10/02/2024 04/03/2024, 03/23/2024, 03/23/2024, Additional history exists Diabetes: Annual GFR (Glomerular Filtration Rate) 05/26/2025 05/26/2024, 05/18/2024, 05/17/2024, Additional history exists Hypertension/CHF/CAD Annual BMP Blood Test 05/26/2025 05/26/2024, 05/18/2024, 05/17/2024, Additional history exists Cholesterol Screening (Lipid Panel) 03/23/2029 03/23/2024, 03/23/2024, 03/09/2024, Additional history exists HIV Screening Completed 03/16/2023 Hepatitis C Screening Completed 04/01/2024 , 01/12/2023, 01/10/2023, Additional history exists HIB Vaccines Aged Out No longer eligi ble based on patient's age to complete this topic HPV Vaccines Aged Out No longer eligi ble based on patient's age to complete this topic IPV Vaccines Aged Out No longer eligi ble based on patient's age to complete this topic MMR Vaccines Aged Out No longer eligi ble based on patient's age to complete this topic Meningococcal ACWY Vaccine Aged Out N o longer eligible based on patient's age to complete this topic Meningococcal B Vacine Aged Out No lo nger eligible based on patient's age to complete this topic RSV Immunization Patients Under 20 months Aged Out No longer eligible based on patient's age to complete this topic Varicella Vaccines Aged Out No longer eligible based on patient's age to complete this topic Procedures Procedure Name Priority Date/Time Associated Diagnosis Comments CT ANGIO CHEST WO AND/OR W CONTRAST STAT 05/26/2024 11:06 PM EST Precordial pain XR CHEST 2 VIEWS STAT 05/26/2024 8:59 PM EST CBC WITH AUTO DIFFERENTIAL STAT 05/26/2024 8:51 PM EST PROTHROMBIN TIME WITH INR STAT 05/26/2024 8:51 PM EST ACTIVATED PARTIAL THROMBOPLASTIN TIME STAT 05/26/2024 8:51 PM EST CBC AND DIFFERENTIAL STAT 05/26/2024 8:51 PM EST COMPREHENSIVE METABOLIC PANEL STAT 05/26/2024 8:51 PM EST ECG 12-LEAD STAT 05/26/2024 7:48 PM EST TROPONIN I HIGH SENSITIVITY STAT 05/26/2024 7:34 PM EST SALICYLATE LEVEL STAT 05/26/2024 6:24 PM EST ACETAMINOPHEN LEVEL STAT 05/26/2024 6 :24 PM EST ETHANOL STAT 05/26/2024 6:24 PM EST B-TYPE NATRIURETIC PEPTIDE STAT 05/26/2024 6:24 PM EST MAGNESIUM STAT 05/26/2024 6:24 PM EST LIPASE STAT 05/26/2024 6:24 PM EST TROPONIN I HIGH SENSITIVITY STAT 05/26/2024 6:24 PM EST METHADONE SCREEN, URINE STAT 05/26/19 25 6:23 PM EST PHENCYCLIDINE, URINE STAT 05/26/2024 6:23 PM EST BUPRENORPHINE SCREEN, URINE STAT 05/26/2024 6:23 PM EST DRUG ABUSE SCREEN 8A PANEL, URINE STAT 05/26/2024 6:23 PM EST ECG 12-LEAD STAT 05/26/2024 5:52 PM EST TROPONIN I HIGH SENSITIVITY STAT 05/09/2024 8:44 PM EST ECG 12-LEAD STAT 05/09/2024 7:56 PM EST CBC WITH AUTO DIFFERENTIAL STAT 05/09/2024 7:47 PM EST B-TYPE NATRIURETIC PEPTIDE STAT 05/09/2024 7:47 PM EST MAGNESIUM STAT 05/09/2024 7:47 PM EST LIPASE STAT 05/09/2024 7:47 PM EST COMPREHENSIVE METABOLIC PANEL STAT 05/09/2024 7:47 PM EST CBC AND DIFFERENTIAL STAT 05/09/2024 7:47 PM EST TROPONIN I HIGH SENSITIVITY STAT 05/09/2024 7:47 PM EST ECG OUTSIDE 05/09/2024 TROPONIN I HIGH SENSITIVITY STAT 05/01/2024 12:48 AM EST XR CHEST 2 VIEWS STAT 04/30/2024 11:4 2 PM EST CBC WITH AUTO DIFFERENTIAL STAT 04/30/2024 8:50 PM EST TROPONIN I HIGH SENSITIVITY STAT 04/30/2024 8:50 PM EST B-TYPE NATRIURETIC PEPTIDE STAT 04/30/2024 8:50 PM EST LIPASE STAT 04/30/2024 8:50 PM EST PROTHROMBIN TIME WITH INR STAT 04/30/2024 8:50 PM EST MAGNESIUM STAT 04/30/2024 8:50 PM EST COMPREHENSIVE METABOLIC PANEL STAT 04/30/2024 8:50 PM EST CBC AND DIFFERENTIAL STAT 04/30/2024 8:50 PM EST ECG 12-LEAD STAT 04/30/2024 8:44 PM EST ECG OUTSIDE 04/30/2024 ECG ANNOTATED 04/30/2024 from Last 3 Months Results * CT Angio Chest wo and/or w Contrast (05/26/2024 11:06 PM EST) Anatomical Region Laterality Modality Body Computed Tomogra phy 05/26/2024 11:4 4 PM EST Impressions 05/26/2024 11:44 PM EST Impression: No evidence of pulmonary embolus This document has been electronically signed by: Daniel John MD on 05/26/2024 23:44:34 Narrative 05/26/2024 11:44 PM EST INDICATION: PE suspected, high prob CT angiogram chest/pulmonary arteries with contrast Multiplanar reconstructions and MIPS Comparison: None Findings: No filling defects are noted to suggest pulmonary embolus. Main pulmonary artery normal in caliber. Thoracic aorta normal caliber without dissection. Heart size normal. Great vessel origins patent. No coronary calcifications. No significant focal parenchymal abnormalities. Right hemidiaphragm elevation, possibly chronic. No prior studies available for comparison. Question prior trauma versus paralysis. No significant mediastinal or hilar adenopathy. No acute bony abnormality noted. Gastric sleeve and/or bypass surgery. Procedure Note Daniel John MD - 05/26/2024 INDICATION: PE suspected, high prob CT angiogram chest/pulmonary arteries with contrast Multiplanar reconstructions and MIPS Comparison: None Findings: No filling defects are noted to suggest pulmonary embolus. Main pulmonary artery normal in caliber. Thoracic aorta normal caliber without dissection. Heart size normal. Great vessel origins patent. No coronary calcifications. No significant focal parenchymal abnormalities. Right hemidiaphragm elevation, possibly chronic. No prior studies available for comparison. Question prior trauma versus paralysis. No significant mediastinal or hilar adenopathy. No acute bony abnormality noted. Gastric sleeve and/or bypass surgery. IMPRESSION: Impression: No evidence of pulmonary embolus This document has been electronically signed by: Daniel John MD on 05/26/2024 23:44:34 Jus Klein DO IMG CT PROCEDURES Final Result * XR Chest 2 Views (05/26/2024 8:59 PM EST) Only the most recent of2 resultswithin the time period is included. Anatomical Region Laterality Modality Body Radiographic Janna ging 05/27/2024 8:42 AM EST Impressions 05/27/2024 8:44 AM EST Limited depth of inspiration as also seen on 04/30/2024. Left base discoid atelectasis versus linear scarring is unchanged. The lungs are otherwise clear. Code 71627 -------- FINAL REPORT -------- Dictated By: Toney Leger Dictated Date: 05/27/2024 08:42 ET Assigned Physician: Toney Leger Reviewed and Electronically Signed By: Toney Leger Signed Date: 05/27/2024 08:44 ET Workstation ID: [id number] Transcribed By: Self Edit Transcribed Date: 05/27/2024 08:42 ET Narrative 05/27/2024 8:44 AM EST HISTORY: The patient is a 48-year-old male with chest pain. FINDINGS: PA and lateral radiographs of the chest demonstrate limited depth of inspiration as also seen on the prior study performed 04/30/2014. Again seen are degenerative changes of the thoracic spine. The cardiac and mediastinal contours are within normal limits. Discoid atelectasis versus linear scarring is again seen at the left lung base. The lungs are otherwise clear and the costophrenic angles are sharp. Procedure Note Toney Leger MD - 02/18/2025 HISTORY: The patient is a 48-year-old male with chest pain. FINDINGS: PA and lateral radiographs of the chest demonstrate limiteddepth of inspiration as also seen on the prior study performed 04/30/2014.Again seen are degenerative changes of the thoracic spine. The cardiac andmediastinal contours are within normal limits. Discoid atelectasis versuslinear scarring is again seen at the left lung base. The lungs areotherwise clear and the costophrenic angles are sharp. IMPRESSION: Limited depth of inspiration as also seen on 04/30/2024. Left base discoidatelectasis versus linear scarring is unchanged. The lungs are otherwiseclear. Code 79504 -------- FINAL REPORT -------- Dictated By: Toney Leger Dictated Date: 05/27/2024 08:42 ET Assigned Physician: Toney Leger Reviewed and Electronically Signed By: Toney Leger Signed Date: 05/27/2024 08:44 ET Workstation ID: [id number] Transcribed By: Self Edit Transcribed Date: 05/27/2024 08:42 ET us Jus Klein DO IMG XR PROCEDURES Final Result * (ABNORMAL) CBC auto differential (05/26/2024 8:51 PM EST) Only the most recent of3 resultswithin the time period is included. WBC 5.2 4.8 - 10.8 K/mcL LAB HEMETOLOGY METHOD 05/26/2024 9:08 PM [facility] RBC 4.60 4.50 - 5.50 M/mcL LAB HEMETOLOGY METHOD 05/26/2024 9:08 PM [facility] Hemoglobin 10.9(L) 13.5 - 17.5 g/dL LAB HEMETOLOGY METHOD 05/26/2024 9:08 PM [facility] Hematocrit 35.5(L) 42.0 - 54.0 % LAB HEMETOLOGY METHOD 05/26/2024 9:08 PM [facility] MCV 77.3(L) 79.0 - 98.0 FL LAB HEMETOLOGY METHOD 05/26/2024 9:08 PM [facility] MCH 23.7(L) 27.0 - 32.0 pcg LAB HEMETOLOGY METHOD 05/26/2024 9:08 PM [facility] MCHC 30.7(L) 32.0 - 37.0 g/dL LAB HEMETOLOGY METHOD 05/26/2024 9:08 PM [facility] RDW 15.9(H) 11.0 - 15.0 % LAB HEMETOLOGY METHOD 05/26/2024 9:08 PM [facility] Platelets 377 130 - 400 K/mcL LAB HEMETOLOGY METHOD 05/26/2024 9:08 PM [facility] MPV 10.1 7.0 - 11.0 FL LAB HEMETOLOGY METHOD 05/26/2024 9:08 PM [facility] NRBC 0.0 <1.0 % LAB HEMETOLOGY METHOD 05/26/2024 9:08 PM [facility] NRBC Absolute 0.00 <0.10 K/mcL LAB HEMETOLOGY METHOD 05/26/2024 9:08 PM [facility] Neutrophils Relative 59.1 % LAB HEMETOLOGY METHOD 05/26/2024 9:08 PM [facility] Lymphocytes Relative 26.5 % LAB HEMETOLOGY METHOD 05/26/2024 9:08 PM [facility] Monocytes Relative 11.3 % LAB HEMETOLOGY METHOD 05/26/2024 9:08 PM [facility] Eosinophils Relative 1.9 % LAB HEMETOLOGY METHOD 05/26/2024 9:08 PM [facility] Basophils Relative 0.4 % LAB HEMETOLOGY METHOD 05/26/2024 9:08 PM [facility] Immature Granulocytes Relative 0.8 % LAB HEMETOLOGY METHOD 05/26/2024 9:08 PM EST [facility] Neutrophils Absolute 3.07 1.50 - 7.00 K/[facility] LAB HEMETOLOGY METHOD 05/26/2024 9:08 PM EST [facility] Lymphocytes Absolute 1.38 1.00 - 5.00 K/[facility] LAB HEMETOLOGY METHOD 05/26/2024 9:08 PM EST [facility] Monocytes Absolute 0.59 0.20 - 1.00 K/[facility] LAB HEMETOLOGY METHOD 05/26/2024 9:08 PM EST [facility] Eosinophils Absolute 0.10 0.00 - 0.50 K/[facility] LAB HEMETOLOGY METHOD 05/26/2024 9:08 PM EST [facility] Basophils Absolute 0.02 0.00 - 0.20 K/mcL LAB HEMETOLOGY METHOD 05/26/2024 9:08 PM EST [facility] Immature Granulocytes Absolute 0.04(H) 0.00 - 0.03 K/[facility] LAB HEMETOLOGY METHOD 05/26/2024 9:08 PM EST [facility] Blood Venous blood specimen / Unknown Venipuncture / Unknown 05/26/2024 8:51 PM EST 05/26/2024 8:58 PM EST us Jus Klein DO LAB BLOOD ORDERABLES Final Res ult [facility] [address] [place] [address], * Activated partial thromboplastin time (05/26/2024 8:51 PM EST) aPTT 35.5 24.1 - 39.3 sec LAB COAGULATION METHOD 05/26/2024 9:16 PM EST [facility] Blood Venous blood specimen / Unknown Venipuncture / Unknown 05/26/2024 8:51 PM EST 05/26/2024 8:58 PM EST us Jus Klein DO LAB BLOOD ORDERABLES Final Res ult Performing Organization Address [facility]/ZIP Co de Phone Number [facility] [address] [place] [address], [place] [phone] * Prothrombin time with INR (05/26/2024 8:51 PM EST) Only the most recent of2 resultswithin the time period is included. [facility] Protime 13.7 10.6 - 13.9 sec LAB COAGULATION METHOD 05/26/2024 9:16 PM EST [facility] INR 1.1 LAB COAGULATION METHOD 05/26/2024 9:16 PM EST [facility] Blood Venous blood specimen / Unknown Venipuncture / Unknown 05/26/2024 8:51 PM EST 05/26/2024 8:58 PM EST us Jus Klein DO LAB BLOOD ORDERABLES Final Res ult Performing Organization Address [facility]/ZIP Co de Phone Number [facility] [address] [place] [address], [place] [phone] * Comprehensive metabolic panel (05/26/2024 8:51 PM EST) Only the most recent of3 resultswithin the time period is included. [facility] Sodium 136 133 - 145 mmol/L LAB CHEMISTRY METHOD 05/26/2024 9:35 PM EST [facility] Potassium 4.0 3.5 - 5.5 mmol/L LAB CHEMISTRY METHOD 05/26/2024 9:35 PM [facility] Chloride 105 96 - 110 mmol/L LAB CHEMISTRY METHOD 05/26/2024 9:35 PM [facility] CO2 23 21 - 32 mmol/L LAB CHEMISTRY METHOD 05/26/2024 9:35 PM EST [facility] Anion Gap 8 3 - 11 LAB CHEMISTRY METHOD 05/26/2024 9:35 PM [facility] Glucose 86 70 - 100 mg/dL LAB CHEMISTRY METHOD 05/26/2024 9:35 PM [facility] BUN 14 5 - 25 mg/dL LAB CHEMISTRY METHOD 05/26/2024 9:35 PM [facility] Creatinine 0.73 0.70 - 1.30 mg/dL LAB CHEMISTRY METHOD 05/26/2024 9:35 PM [facility] eGFR 113 >=60 mL/min/1. 73m2 LAB CHEMISTRY METHOD 05/26/2024 9:35 PM [facility] Comment:Calculation based on the??Chronic Kidney Disease Epidemiology Collaboration (CKD-EPI) equation refit??without adjustment for race. BUN/Creatinine Ratio 19.2 LAB CHEMISTRY METHOD 05/26/2024 9:35 PM [facility] Calcium 8.9 8.5 - 10.5 mg/dL LAB CHEMISTRY METHOD 05/26/2024 9:35 PM [facility] AST (SGOT) 17 10 - 42 unit/L LAB CHEMISTRY METHOD 05/26/2024 9:35 PM [facility] ALT (SGPT) 21 10 - 60 unit/L LAB CHEMISTRY METHOD 05/26/2024 9:35 PM [facility] Alkaline Phosphatase 106 42 - 121 unit/L LAB CHEMISTRY METHOD 05/26/2024 9:35 PM [facility] Total Protein 6.7 6.0 - 8.0 g/dL LAB CHEMISTRY METHOD 05/26/2024 9:35 PM [facility] [facility] Albumin 3.5 3.2 - 5.0 g/dL LAB CHEMISTRY METHOD 05/26/2024 9:35 PM [facility] Total Bilirubin 0.2 0.0 - 1.4 mg/dL LAB CHEMISTRY METHOD 05/26/2024 9:35 PM [facility] Blood Venous blood specimen / Unknown Venipuncture / Unknown 05/26/2024 8:51 PM EST 05/26/2024 8:58 PM EST Jus Klein DO LAB BLOOD ORDERABLES Final Res ult Performing Organization Address City/[facility]/ZIP Co de Phone Number [facility]) [facility] [address] [place] [address], [place] [phone] * ECG 12 lead (05/26/2024 7:48 PM EST) Only the most recent of4 resultswithin the time period is included. Ventricular Rate ECG 70 BPM GEMUSE Atrial Rate 70 BPM GEMUSE P-R Interval 192 ms GEMUSE QRS Duration 100 ms GEMUSE Q-T Interval 390 ms GEMUSE QTc 421 ms GEMUSE P Wave [place] 12 degrees GEMUSE R [place] 29 degrees GEMUSE T [place] 53 degrees GEMUSE ECG Interpretation Sinus rhythm with occasional Premature ventricular complexes Otherwise normal ECG When compared with ECG of 26-MAY-2024 17:52, (unconfirmed) No significant change was found Confirmed by Skye LALA JOHN ([id number]) on 05/27/2024 7:49:26 AM GEMUSE 05/26/2024 7:48 PM EST 05/27/2024 7:49 AM EST us Jus Klein DO ECG ORDERABLES Final Result Performing Organization Address [facility] Co de Phone Number GEMUSE * Troponin I high sensitivity (05/26/2024 7:34 PM EST) Only the most recent of6 resultswithin the time period is included. High Sensitivity Troponin I <3 <=79 ng/L LAB CHEMISTRY METHOD 05/26/2024 8:15 PM EST [facility] Blood Venous blood specimen / Unknown Venipuncture / Unknown 05/26/2024 7:34 PM EST 05/26/2024 7:41 PM EST Narrative [facility] - 05/26/2024 8:15 PM EST High levels of biotin in samples may falsely decrease hsTroponin values. ??Use caution when interpreting hsTroponin results in patients taking biotin who exhibit renal impairment (eGFR <60) or in patients taking more than 20 mg/day of biotin. us Jus Klein DO LAB BLOOD ORDERABLES Final Res ult Performing Organization Address [facility] de Phone Number [facility] [address] [place] [address], [place] [phone] * B-type natriuretic peptide (05/26/2024 6:24 PM EST) Only the most recent of3 resultswithin the time period is included. BNP 18 <=100 pcg/mL LAB CHEMISTRY METHOD 05/26/2024 7:47 PM EST [facility] Blood Venous blood specimen / Unknown Venipuncture / Unknown 05/26/2024 6:24 PM EST 05/26/2024 7:06 PM EST us Jus Klein DO LAB BLOOD ORDERABLES Final Res ult Performing Organization Address [facility] de Phone Number [facility] [address] [place] [address], [place] [phone] * Magnesium (05/26/2024 6:24 PM EST) Only the most recent of3 resultswithin the time period is included. Magnesium 2.0 1.9 - 2.6 mg/dL LAB CHEMISTRY METHOD 05/26/2024 7:53 PM EST [facility] Blood Venous blood specimen / Unknown Venipuncture / Unknown 05/26/2024 6:24 PM EST 05/26/2024 7:06 PM EST us Jus Klein DO LAB BLOOD ORDERABLES Final Res ult Performing Organization Address [facility]/State/ZIP Co de Phone Number [facility] [address] [place] [address], [place] [phone] * Lipase (05/26/2024 6:24 PM EST) Only the most recent of3 resultswithin the time period is included. Lipase 26 13 - 75 unit/L LAB CHEMISTRY METHOD 05/26/2024 7:53 PM EST [facility] Blood Venous blood specimen / Unknown Venipuncture / Unknown 05/26/2024 6:24 PM EST 05/26/2024 7:06 PM EST us Jus Klein DO LAB BLOOD ORDERABLES Final Res ult Performing Organization Address [facility] Co de Phone Number [facility] [address] [place] [address], * Ethanol (05/26/2024 6:24 PM EST) Ethanol Level <3 0 - 10 mg/dL LAB CHEMISTRY METHOD 05/26/2024 7:53 PM EST [facility] Blood Venous blood specimen / Unknown Venipuncture / Unknown 05/26/2024 6:24 PM EST 05/26/2024 7:06 PM EST us Jus Klein DO LAB BLOOD ORDERABLES Final Res ult Performing Organization Address City/[facility]/ZIP Co de Phone Number [facility] [address] [place] [address], [place] [phone] * (ABNORMAL) Acetaminophen level (05/26/2024 6:24 PM EST) Acetaminophen Level <2.0(L) 10.0 - 30.0 mcg/mL LAB CHEMISTRY METHOD 05/26/2024 7:53 PM EST [facility] Blood Venous blood specimen / Unknown Venipuncture / Unknown 05/26/2024 6:24 PM EST 05/26/2024 7:06 PM EST us Jus Klein DO LAB BLOOD ORDERABLES Final Res ult Performing Organization Address [facility]/ZIP Co de Phone Number [facility] [address] [place] [address], [place] [phone] * (ABNORMAL) Salicylate level (05/26/2024 6:24 PM EST) Salicylate Level <1.7(L) 2.0 - 29.0 mg/dL LAB CHEMISTRY METHOD 05/26/2024 7:53 PM [facility] Blood Venous blood specimen / Unknown Venipuncture / Unknown 05/26/2024 6:24 PM EST 05/26/2024 7:06 PM EST us Jus Klein DO LAB BLOOD ORDERABLES Final Res ult Performing Organization Address [facility] de Phone Number [facility] [address] [place] [address], [place] [phone] * (ABNORMAL) Drug abuse screen 8a panel, urine (05/26/2024 6:23 PM EST) Amphetamine Screen, Ur Negative Negative LAB CHEMISTRY METHOD 5 7:52 PM [facility] Comment:Certain OTC medicati ons containing ephedrine, phenylephrine, pseudoephedrine and phenylpropanolamine can cause false positive results. Barbiturate Screen, Ur Negative Negative LAB CHEMISTRY METHOD 5 7:52 PM EST [facility] Benzodiazepine Screen, Ur Negative Negative LAB CHEMISTRY METHOD 5 7:52 PM [facility] Cocaine Screen, Ur Negative Negative LAB CHEMISTRY METHOD 5 7:52 PM [facility] Opiate Screen, Ur Positive(A ) Negative LAB CHEMISTRY METHOD 5 7:52 PM EST [facility] Cannabinoid (THC) Screen, Ur Negative Negative LAB CHEMISTRY METHOD 7:52 PM EST [facility] Comment:Specimens from patie nts taking pantoprazole sodium (Protonix) have been shown to produce false positive results. Oxycodone Screen, Ur Positive(A ) Negative LAB CHEMISTRY METHOD 5 7:52 PM EST [facility] Fentanyl, Ur Negative Negative LAB CHEMISTRY METHOD 5 7:52 PM EST [facility] Urine Urine specimen obtained by clean catch procedure / Unknown Non-blood Collection / Unknown 05/26/2024 6:23 PM EST 05/26/2024 7:09 PM EST [facility] - 05/26/2024 7:52 PM EST Assay cutoffs: Amphetamines ? 1000 ng/mL Barbiturates ?200 ng/mL Benzodiazepines ?? 200 ng/mL Cocaine ? 300 ng/mL Fentanyl ?1 ng/mL Opiates ? 300 ng/mL Oxycodone ? 100 ng/mL THC ?50 ng/mL Semi-quantitative assay for screening purposes only. Unconfirmed screening result should not be used for non-medical purposes. *ALTERNATE METHOD CONFIRMATION DONE UPON REQUEST ONLY* us Jus Klein DO LAB URINE ORDERABLES Final Res ult [facility] [address] [place] [address], * Buprenorphine screen, urine (05/26/2024 6:23 PM EST) Buprenorphine Screen Urine Negative Negative LAB CHEMISTRY METHOD 05/26/2024 7:48 PM EST [facility] Urine Urine specimen obtained by clean catch procedure / Unknown Non-blood Collection / Unknown 05/26/2024 6:23 PM EST 05/26/2024 7:09 PM EST Narrative [facility] - 05/26/2024 7:48 PM EST Assay cutoff 5 ng/mL Semi-quantitative assay for screening purposes only. Unconfirmed screening result should not be used for non-medical purposes. *ALTERNATE METHOD CONFIRMATION DONE UPON REQUEST ONLY* Jus Klein DO LAB URINE ORDERABLES Final Res ult Performing Organization Address [facility] Co de Phone Number [facility] [address] [place] [address], [place] [phone] * Methadone, urine (05/26/2024 6:23 PM EST) Methadone Screen, Urine Negative Negative LAB CHEMISTRY METHOD 05/26/2024 7:51 PM EST [facility] Comment: Assay cutoff 300 ng/mL Semi-quantitative assay for screening purposes only. Unconfirmed screening result should not be used for non-medical purposes. *ALTERNATE METHOD CONFIRMATION DONE UPON REQUEST ONLY* Urine Urine specimen obtained by clean catch procedure / Unknown Non-blood Collection / Unknown 05/26/2024 6:23 PM EST 05/26/2024 7:09 PM EST Jus Klein DO LAB URINE ORDERABLES Final Res ult Performing Organization Address [facility]/ZIP Co de Phone Number [facility] [address] [place] [address], [place] [phone] * Phencyclidine, urine (05/26/2024 6:23 PM EST) PCP Scrn, Ur Negative Negative LAB CHEMISTRY METHOD 05/26/2024 7:51 PM EST [facility] Comment: Assay cutoff 25 ng/mL Semi-quantitative assay for screening purposes only. Unconfirmed screening result should not be used for non-medical purposes. *ALTERNATE METHOD CONFIRMATION DONE UPON REQUEST ONLY* Urine Urine specimen obtained by clean catch procedure / Unknown Non-blood Collection / Unknown 05/26/2024 6:23 PM EST 05/26/2024 7:09 PM EST Jus Kleni DO LAB URINE ORDERABLES Final Res ult [facility] [address] [place] [address], * ECG-Outside (05/09/2024) Only the most recent of2 resultswithin the time period is included. us Provider Onbase MD ECG ORDERABLES Final Result * ECG-Annotated (04/30/2024) us Provider Onbase MD ECG ORDERABLES Final Result from Last 3 Months Insurance [facility] MEDIC[facility] Member Subscriber Plan / Payer (Ef fective 2014-Present) Name:Charlie Rios Relation to Subscriber:Self Name:RiosCharlie Payer ID:[id number] Group ID:[id number] Type:Not on file Address: [address] [facility] [place] [phone] Advance Directives * Full Code - Default (Latest Code Status on File) Date Activated Date Inactivated Comments 01/01/2022 12:42 AM 01/02/2022 4:55 PM This is ord er is used when code status has not been discussed with the patient, or code status is otherwise unknown/unconfirmed To update the patient's code status, place a code status order. Do not modify or discontinue any currently active code status orders. Care Teams Guest Services Representative Relationship Specialty Start Date End Date Physician, No Pcp PCP - General 01/25/24
--- OUTSIDE RECORDS SUMMARY | 2024-05-28 13:54 | XMS_ITS | Encounter Summary ---
Author Organization [facility] Address [address] [place] [address] Care Team Providers Care Screw Machine Tool Setter Name Role Phone Trish Beckett Primary Care Provider Encounter Details Date Type Department Care Team (Late st Contact Info) Description 03/07/2020 Procedure [facility] [address] [place] [phone] Social History Tobacco Use Types Packs/Day Years Used Date Smoking Tobacco: Never Smokeless Tobacco: Never Alcohol Use Standard Drinks/Week Comments No 0 (1 standard drink = 0.6 oz pur e alcohol) Sex and Gender Information Value Date Recorded Sex Assigned at Not on file Legal Sex Male 2:33 PM EST Gender Identity Not on file Sexual Orientation Not on file COVID-19 Exposure Response Date Recorded In the last month, have you been in contact with someone who was confirmed or suspected to have Coronavirus / COVID-19? No / Unsure 03/10/2020 9:22 AM EST documented as of this encounter Plan of Treatment Not on file documented as of this encounter Visit Diagnoses Not on filedocumented in this encounter Care Teams Screw Machine Tool Setter Relationship Specialty Start Date End Date Trish Beckett [id number] [address] PCP - General 03/06/20 documented as of this encounter
--- OUTSIDE RECORDS SUMMARY | 2024-05-28 13:54 | XMS_ITS | Clinical Summary ---
Author Organization [facility] Address [address] [place] [address] Care Team Providers Care Breakdown Person Name Role Phone Beckett Trish Primary Care Provider [phone] Allergies Active Allergy Reactions Criticality Noted Date Comments Acetaminophen Other reaction(s): Unknown Amoxicillin Anaphylaxis High Aspirin Anaphylaxis High Fish Containing Products Anaphylaxis High 09/03/2014 Per patient Per patient Ibuprofen Anaphylaxis High Latex Rash Medium 11/07/2014 Nitroglycerin Other reaction(s): Unknown Nsaids (Non-Steroidal Anti-Inflammatory Drug) Anaphylaxis,Hives High 04/14/2016 Other reaction(s): Hives; Resp Distress Tolerated Ketorolac 10/16/18 Other reaction(s): Hives; Resp Distress Other reaction(s): Hives; Resp Distress Poultry Anaphylaxis,Hives High 04/05/2016 Venom-Honey Bee Swelling Medium 04/24/2014 Medications fluticasone-salme terol (ADVAIR DISKUS) 500-50 mcg/dose diskus inhaler ADVAIR 500-50 DISKUS(FLUTICA SONE FUROATE) 1 EACH Dose: 1 PUFF Active divalproex (DEPAKOTE ER) 500 mg 24 hr tablet Take 1,000 mg by mouth 2 (two) times a day. Active tamsulosin (FLOMAX) 0.4 mg capsule,extended release 24hr Take 0.4 mg by mouth daily. Active atorvastatin (LIPITOR) 80 mg tablet Take 80 mg by mouth nightly. Active MULTIVIT WITH MINERALS/LUTEIN (MULTIVITAMIN 50 PLUS ORAL) MULTIVITAMIN(M ULTIVIT, IRON, MIN #5, FA) 1 EACH TABLET Dose: 1 TAB Active gabapentin (NEURONTIN) 300 mg capsule 400 mg 2 (two) times a day. Active albuterol HFA (PROAIR HFA) 90 mcg/actuation inhaler PROAIR HFA INHALER(ALBUTE ROL SULFATE) 8.5 GM HFA.AER.AD Dose: 1-2 PUFF Active pantoprazole (PROTONIX) 40 mg EC tablet 40 mg. Active tiotropium (SPIRIVA WITH HANDIHALER) 18 mcg per inhalation capsule SPIRIVA(TIOTRO PIUM BR/OLODATEROL HCL) 18 MCG CAP.W.DEV Dose: 0 MG Active traZODone (DESYREL) 100 mg tablet 200 mg. Active ascorbate Hi-jnzsxkeb-gzh (VITAMIN C) 1,000 mg powder effervescent in packet 500 mg. Active Ca b no.2-[id number]-B1 2-aloe (VITAMIN D-3 WITH ALOE) 120-1,000-10 mg-unit-mg tablet VITAMIN D3(CHOLECALCIF CLARA (VITAMIN D3)) 1000 UNIT TABLET Active lisinopril (ZESTRIL) 5 mg tablet 2.5 mg. Active bisacodyl (FLEET LAXATIVE) 5 mg EC tablet BISACODYL(BISA CODYL/MAGNESIU M CITRATE) 5 MG TABLET.DR Active ferrous gluconate 324 mg (36 mg iron) tablet Take 324 mg by mouth. Active clopidogrel (PLAVIX) 75 mg tablet Take 75 mg by mouth. Active clonazePAM (KlonoPIN) 1 mg tablet Take 1 mg by mouth 2 (two) times a day as needed. Active QUEtiapine (SEROquel) 300 mg tablet Take 400 mg by mouth nightly. Active QUEtiapine (SEROquel) 25 mg tablet Take 25 mg by mouth daily. Active melatonin tablet Take 3 mg by mouth nightly. Active rivaroxaban (XARELTO) tablet Take 20 mg by mouth daily. Active OLANZapine (ZYPREXA) 5 mg tablet Take 5 mg by mouth daily. Active multivitamin with minerals tablet Take 1 tablet by mouth daily. 0 Active metoprolol succinate XL (TOPROL-XL) 100 mg 24 hr tablet Take 100 mg by mouth daily. 0 Active metFORMIN (GLUCOPHAGE) 500 mg tablet Take 500 mg by mouth 2 (two) times a day. Active levothyroxine (SYNTHROID, LEVOTHROID) 25 mcg tablet Take 25 mcg by mouth. 0 Active hydrOXYzine (ATARAX) 25 mg tablet Take 25 mg by mouth 4 times daily as needed. Active fluticasone propionate (FLONASE) 50 mcg/actuation nasal spray Administer 1 spray into affected nostril(s) daily. Active carbidopa-levodop a (SINEMET CR) 25-100 mg per CR tablet Take 1 tablet by mouth 2 (two) times a day. Active amLODIPine (NORVASC) 5 mg tablet Take 7.5 mg by mouth daily. 0 Active sertraline (Zoloft) 100 mg tablet Take 100 mg by mouth daily. Active Active Problems Problem Noted Date Diagnosed Date Pulmonary embolism 03/06/2020 Arachnoid cyst 03/06/2020 Cigarette nicotine dependenc e with nicotine-induced disorder 10/21/2018 Seizure disorder 08/11/2017 Overview (03/06/2020): Last Assessment & Plan: Patient with a history of seizure disorder, on home depakote 1000mg BID. -c/w home depakote 1000mg BID Parkinson's disease 08/11/2017 Overview (03/06/2020): Last Assessment & Plan: Pt with Parkinson's, on home sinemet 25-100mg 1 tab BID. -c/w home sinemet 1 tab BID Hypothyroidism due to acquired atrophy of thyroi d 06/27/2017 H/O right coronary artery stent placement 2017 PTSD (post-traumatic stress disorder) 06/26/2017 BPH (benign prostatic hyperplasia) 11/04/2016 Smoker 03/17/2016 Pulmonary nodule 03/17/2016 History of gastric ulcer 03/17/2016 Diabetic neuropathy associat ed with type 2 diabetes mellitus 03/17/2016 Iron (Fe) deficiency anemia 01/12/2015 Bipolar 1 disorder 01/09/2015 Hyperlipidemia 11/12/2014 Chronic obstructive pulmonary disease 11/12/2014 Overview (03/06/2020): Last Assessment & Plan: Pt w COPD on home spiriva, current smoker with 1ppd every other day or so. Currently no SOB or increased WOB on exam. Satting well on RA. -c/w home spiriva CAD (coronary artery disease) 11/12/2014 Overview (03/06/2020): Last Assessment & Plan: Patient with CAD with a history of 4 MIs s/p BMS to distal RCA in 2008 c/b stent occlusion, on plavix, lipitor 20 QHS, and lopressor 50mg BID at home, also current smoker. -see chest pain above -c/w home plavix -c/w home lopressor 50mg BID -increase lipitor from 20mg QHS to 80mg QHS -encourage tobacco cessation GERD (gastroesophageal reflux disease) 5 Drug-seeking behavior 07/12/2014 Overview (03/06/2020): Patient with reported nitroglycerin allergy. Requests narcotics for chest pain. Patient with reported nitroglycerin allergy. Requests narcotics for chest pain. Schizoaffective disorder 11/04/2013 Overview (03/06/2020): Last Assessment & Plan: - Pt with significant psych hx including schophrenia, Bipolar disorder, Anxiety, PTSD, and sucidal ideation w/ plan. - Pt w/ recent ED Obs course with similar presentation of cp and had SI w/ plan. [facility] was consulted at that point and was cleared for discharge. - Although pt endorses SI w/ plan to jumping in front of traffic, during interview pt is smiling and pleasant. It is unclear if pt is truly SI or is this attention seeking. In the past, he states, he has been SI and attempted to jump into the traffic but stopped himself by thinking of his daughter. He states he has been SI for the past 2-3 months and was at [facility] from where he was transferred to [facility]. He signed out AMA this morning to come to the ED for his chest pain. At this point, it seems unlikely pt will do harm to himself or others while in the hospital. - Will consult Psych for input Last Assessment & Plan: Pt with schizoaffective disorder on home abilify 10mg qAM and 5mg qPM, seroquel 300mg QHS, and zoloft 25mg daily. Mood currently stable. -continue home abilify 10mg qAM and 5mg qPM, seroquel 300mg QHS, and zoloft 25mg daily Morbid obesity with BMI of 40.0-44.9, adult 10/08 Chest pain 02/22/2012 Overview (03/06/2020): Pt with clean cardiac cath at [facility] on 06/26/2014 He reports 4 past MIs, reports RCA stent, however no EKG features suggestive of past SC Last Assessment & Plan: Pt with hx of SC s/p stent in RCA, p/w left sided chest pain radiating to the Left arm. Associated with N/V in the AM. In the ED, no episodes of N/V. Received ASA 325mg, Morphine 2mg x1, and Zofran. Appeared comfortable with benign exam but complained of active chest pain. Trop neg. ECG without evidence of ischemic changes. - pt w/ hx of bipolar, schophrenia, and factitious disorder. Had a recent ED obs course in 11/2013, where he had similar presentation. Pharm Stress Test done during that admission, and was neg. Unlikely this is cardiac in origin, will continue to monitor. - Trop at 4PM - monitor on tele Last Assessment & Plan: Patient describes a hx of angina at rest in the setting of multiple CAD risk factors including hx stent, HLD, HTN. Additionally, his MIBI from [place] several weeks ago showed areas of ischemia inconsistent with area of stenosis seen on prior cath in 2013. However serial EKGs are unchanged from baseline and trops <0.01 x2 so less likely acute ACS. VAISHNAVI score 4 (one point each for: >3 CAD risk factors; prior stenosis > 50% in any vessel?, >2 reported anginal events in past 24 hours? and use of ASA in prior 7 days?). Ddx includes unstable angina vs stable angina with continued chest pain vs malingering. Chest pain improving with morphine. Of note, patient has been documented to have high frequency visits to local EDs with similar presentations, often leaving AMA. Patient specifically requesting morphine and reports anaphylaxis to ASA and nitro however has been taking ASA 81 and Imdur at home as seen by pill cards/blister packs. Dx: - trend troponins - telemetry; serial EKGs Tx: - optimize medical therapy: - Continue home ASA 81, lisinopril 20mg QD, plavix 75mg QD and Imdur 30mg QD - Factionate metoprolol and titrate up as appropriate for bp - Increase home atorvastatin 40mg to 80mg - Morphine 2-4mg IV as needed for pain - supplemental O2 via nasal cannula as needed - will hold off on nitro at this time as patient received long acting home Imdur this morning; consider starting and titrating as bp tolerates - will hold of on heparin at this time as no EKG changes and serial trops negative - will not repeat stress at this time as patient had recent MIBI several weeks ago - Consider cardiac cath - A1c, fasting lipid panel for risk stratification - risk factor modification counseling prior to d/c: HTN, HLD, tobacco use, DM, exercise, diet - connect patient with outpatient operation research analyst and PCP ? Pt with clean cardiac cath at [facility] on 06/26/2014 He reports 4 past MIs, reports RCA stent, however no EKG features suggestive of past SC Type 2 diabetes mellitus 11/17/2011 Overview (03/06/2020): Last Assessment & Plan: Pt with T2DM on insulin, last A1c 5/8 in 12/2016, on home lantus 10 units QHS and humalog 5 units TIDAC. -continue home lantus 10 units QHS and humalog 5 units TIDAC -low-dose SOSA -FSBS ACHS Diabetes mellitus Last Assessment & Plan: -- The patient has a history of diabetes and takes insulin. -- will continue his home Lantus and with meals Humalog. -- sliding scale insuline added Essential hypertension 10/21/2010 Overview (03/06/2020): Last Assessment & Plan: Pt with a h/o HTN on home lopressor 50mg BID, doxazosin 2mg QHS, and lasix 20mg daily. BP currently normotensive. -c/w home lopressor 50mg BID, and lasix 20mg daily -hold home doxazosin 2mg QHS while inpatient as pt also on tamsulosin 0.4mg QHS - will monitor BP Last Assessment & Plan: Per [facility] in [place], pt taking Lisinopril 20mg daily, Metoprolol 75mg BID, Isosorbide Dinitrite 10mg TID, Amlodipine 5mg daily, and HCTZ 12.5mg daily. - Pt normotensive on the floor, and has not taken his morning meds - given stable bp, will hold all of his meds at this time, will start with BB or Acei if becomes hypertensive Hypertension Last Assessment & Plan: Currently controlled; BPs today 110s-120s - continue antihypertensives as detailed above Sleep apnea 11/27/2007 Overview (03/06/2020): sleep apnea Asthma 11/27/2007 Overview (03/06/2020): asthma Last Assessment & Plan: Currently controlled - continue albuterol inhaler and advair Immunizations Name Administration Dates Next Due Influenza Vaccine - STANDARD - MDV (FLUZONE/AFLURIA) 01/07/2014,01/11/2012,01/09/2010 Influenza Vaccine - STANDARD - PF (FLUZONE/FLUARIX/FLULAVAL/AFLURIA) 02/18/2015 Influenza Vaccine - STANDARD - SDV (FLUZONE/FLUARIX/FLULAVAL/AFLURIA) 01/02/2020,12/12/2018,01/11/2018,02/18,01/05/2016 influenza, unspecified formulation 12/08/2016 pneumococcal polysaccharide vaccine, 23 valent (PPV23) (Pneumovax-23) 02/19/2016,09/01/2013,02/15/2011 Social History Tobacco Use Types Packs/Day Years Used Date Smoking Tobacco: Never Smokeless Tobacco: Never Tobacco Cessation:Counseling Given: No Alcohol Use Standard Drinks/Week Comments No 0 (1 standard drink = 0.6 oz pur e alcohol) Sex and Gender Information Value Date Recorded Sex Assigned at Not on file Legal Sex Male 2:33 PM EST Gender Identity Not on file Sexual Orientation Not on file Last Filed Vital Signs Vital Sign Reading Time Taken Comments Blood Pressure 119/82 09/16/2021 4:01 PM EDT Pulse 93 09/16/2021 4:01 PM EDT Temperature 35.4 ??C (95.8 ??F) 09/16/2021 4:01 PM ED T Respiratory Rate 16 09/16/2021 4:01 PM EDT Oxygen Saturation 97% 09/16/2021 4:01 PM EDT Inhaled Oxygen Concentration - - Weight 140 kg (308 lb 10.3 oz) 03/10/2020 7:49 A M EST Height 177.8 cm (5' 10 ) 03/10/2020 7:49 AM EST Body Mass Index 44.29 03/10/2020 7:49 AM EST Plan of Treatment Health Maintenance Due Date Last Done Comments Pneumococcal Vaccine: Pediatrics (0 to 5 Years) and At-Risk Patients (6 to 64 Years) (1 of 2 - PCV) 1982 Urine Microalbumin 1986 Ophthalmology Exam 1994 Periodic Health Exam 1994 Tetanus Diphtheria and Pertussis Vaccines (TD and TDaP) (1 - Tdap) 08/01/1995 Colon Cancer Screening 2021 Hemoglobin A1C 03/15/2022 09/13/2021, 1207/2020, 11/13/2020, Additional history exists Influenza (Seasonal) 11/08/2023 01/02/2020, 12/12/2018, 01/11/2018, Additional history exists CoVid-19 Vaccine ( season) 2023 08/11/2020, 06/07/2020 Hepatitis C Screening Completed 03/17/2021, 021 HIB Vaccines Aged Out No longer eligi ble based on patient's age to complete this topic HPV Vaccines Aged Out No longer eligi ble based on patient's age to complete this topic Meningococcal Vaccine Aged Out No jossy radu eligible based on patient's age to complete this topic Procedures Procedure Name Priority Date/Time Associated Diagnosis Comments HEMOGLOBIN A1C Add-On 03/06/2020 8:35 PM EST from Last 3 Months or Most Recently Relevant to Health Maintenance Results * (ABNORMAL) Hemoglobin A1c (03/06/2020 8:35 PM EST) HBA1C 6.6(H) 4.1 - 5.7 % 03/08/2020 5:30 PM EST [facility] Comment: Hemoglobin variant present. Recommend hemoglobin electrophoresis. Prediabetic range: 5.7 - 6.4% Diabetic range: > or = 6.5% Blood Venous blood / Unknown Venipuncture / Unknown 03/06/2020 8:35 PM EST 03/06/2020 8:51 PM EST Roc Edwards MD LAB BLOOD ORDERABLES Final Result [facility] [address] [place] [address], [place] [phone] from Last 3 Months or Most Recently Relevant to Health Maintenance [facility] [address] STANDARD Advance Directives * Full Code (Latest Code Status on File) Date Activated Date Inactivated Comments 03/07/2020 12:03 AM 03/10/2020 6:49 PM Care Teams Breakdown Person Relationship Specialty Start Date End Date Trish Beckett [id number],[place] [address] PCP - General 03/06/20
--- OUTSIDE RECORDS SUMMARY | 2024-05-28 13:54 | XMS_ITS | Clinical Summary ---
Author Organization [facility] Address [address] [place] [address] Care Team Providers Care Drop Shipment Clerk Name Role Phone Unknown, Pcp MD Primary Care Provider Unavailabl e Unknown, Pcp MD Unavailable Unavailable Unknown, Pcp MD Unavailable Unavailable Allergies Active Allergy Reactions Criticality Noted Date Comments Amoxicillin Anaphylaxis,Hives High 04/03/2016 Aspirin Anaphylaxis,Hives High 04/03/2016 Bee Anaphylaxis,Hives High 09/19/2021 Fish Derived Anaphylaxis,Hives High 09/19/2021 Latex Anaphylaxis,Hives High 09/19/2021 Ibuprofen Anaphylaxis,Hives High 07/06/2014 Nitroglycerin Anaphylaxis High 07/06/2014 just the nitro pills Hives Nsaids (Non-Steroidal Anti-Inflammatory Drug) Anaphylaxis,Hives High 09/19/2021 Penicillin Anaphylaxis,Hives High 09/19/2021 Poultry 10/30/2023 Ranolazine Anaphylaxis,Hives High 09/19/2021 Acetaminophen Anaphylaxis,Hives High 04/03/2016 Yellow Dye 09/19/2021 Unknown reaction Medications tiotropium (SPIRIVA) 18 mcg inhalation capsule 1 capsule by Continuous Nebulization route. 7 Active ferrous sulfate 324 mg (65 mg iron) enteric coated tablet Take 324 mg by mouth daily with breakfast. Active fluticasone-ume clidinium-vilan terol (TRELEGY ELLIPTA) 100-62.5-25 mcg inhaler Inhale 1 puff by mouth once daily. Active multivitamin with iron tablet Take 1 tablet by mouth once daily. Active Active Problems Problem Noted Date Diagnosed Date Adjustment disorder with anxious mood 10/31/2023 Depression 10/30/2023 PTSD (post-traumatic stress disorder) 10/30/2023 Obesity 03/28/2017 Chest pain 03/20/2017 Bipolar 1 disorder 03/20/2017 CAD (coronary artery disease) 03/20/2017 MDD (major depressive disord er), recurrent episode, moderate Suicidal ideation Immunizations Name Administration Dates Next Due Influenza Unspecified 12/08/2016 Family History Medical History Relation Name Comments Heart attack Father Heart attack Mother Relation Name Status Comments Father Mother Social History Tobacco Use Types Packs/Day Years Used Date Smoking Tobacco: Former Cigarettes Q uit: 2011 Smokeless Tobacco: Never Alcohol Use Standard Drinks/Week Comments No 0 (1 standard drink = 0.6 oz pur e alcohol) Sex and Gender Information Value Date Recorded Sex Assigned at Not on file Legal Sex Male 4:29 AM EST Gender Identity Not on file Sexual Orientation Not on file Last Filed Vital Signs Vital Sign Reading Time Taken Comments Blood Pressure 143/70 10/31/2023 6:02 AM EDT Pulse 70 10/31/2023 6:02 AM EDT Temperature 36.4 ??C (97.5 ??F) 10/31/2023 6:02 AM ED T Respiratory Rate 18 10/31/2023 6:02 AM EDT Oxygen Saturation 96% 10/31/2023 6:02 AM EDT Inhaled Oxygen Concentration - - Weight 116.4 kg (256 lb 9.6 oz) 09/22/2021 4:27 PM EDT Height 175.3 cm (5' 9 ) 09/22/2021 4:27 PM EDT Body Mass Index 37.89 09/22/2021 4:27 PM EDT Plan of Treatment Health Maintenance Due Date Last Done Comments HEPATITIS C SCREENING 1993 DTAP/TDAP/TD VACCINES (1 - Tdap) 2005 COLONOSCOPY (CRC) 2021 COLORECTAL CANCER SCREENING (CRC) 2021 CT COLONOGRAPHY (CRC) 2021 FIT-DNA (CRC) 2021 FIT/iFOBT (CRC) 2021 SIGMOIDOSCOPY (CRC) 2021 INFLUENZA VACCINE (#1) 2023 , 01/02/2020, 12/12/2018, Additional history exists COVID-19 IMMUNIZATION ( season) 2023 03/30/2021, 08/20/2020, 06/07/2020 ZOSTER VACCINE (1 of 2) 2026 RSV IMMUNIZATION (1 - 1-dose 75+ series) 08/01/2051 IPV VACCINES Aged Out No longer eligi ble based on patient's age to complete this topic MENINGOCOCCAL B VACCINE Aged Out No l onger eligible based on patient's age to complete this topic Insurance [employer] [facility] DUAL (HMO DSNP) [employer] DUAL (HMO DSNP) [place] [id number] Advance Directives For more information, please contact: [phone] * Full Code (Latest Code Status on File) Date Activated Date Inactivated Comments 09/22/2021 4:34 PM 10/29/2023 2:33 PM * Full Code Date Activated Date Inactivated Comments 09/07/2018 11:49 PM 02/12/2020 6:50 PM * Full Code Date Activated Date Inactivated Comments 06/14/2017 11:01 PM 09/07/2018 9:13 AM * Full Code Date Activated Date Inactivated Comments 03/28/2017 9:10 AM 06/14/2017 6:49 PM * Full Code Date Activated Date Inactivated Comments 03/28/2017 2:30 AM 03/28/2017 9:10 AM Care Teams Drop Shipment Clerk Relationship Specialty Start Date End Date Unknown, MD Baldemar Unknown Address Unknown City, PCP - General Internal Medicine 02/08/24 Unknown, PcpMD Unknown Address Unknown City, 02/08/24 Unknown, PcpMD Unknown Address Unknown City, 10/17/23
--- OUTSIDE RECORDS SUMMARY | 2024-05-28 13:54 | XMS_ITS | Clinical Summary ---
Author Organization [facility] Address [address] [place] [id number] Care Team Providers Care Package Sealer Machine Name Role Phone Provider, Generic External Data [...] Plan of Treatment Not on file Insurance [facility] Address[address] [place] [phone] [facility] [address] STANDARD Care Teams Package Sealer Machine Relationship Specialty Start Date End Date Provider, Generic External Data 0 PCP - General 03/22/20
--- OUTSIDE RECORDS SUMMARY | 2024-05-28 13:54 | XMS_ITS | Encounter Summary ---
Author Organization [facility] Address [id number] [place] [id number] Care Team Providers Care Hospitality Ambassador Name Role Phone Physician, No Pcp Primary Care Provider Unavaila ble Reason for Visit * Reason Comments Chest Pain Suicidal Encounter Details Date Type Department Care Team (Late st Contact Info) Description 05/26/2024 6:06 PM EST - 05/28/2024 1:13 PM EST Emergency [facility] Emergency [address] [place] [id number] Jus Klein, DO [address] [place] [address] Jus Jackson MD [address] [place] [id number] Harshad Clifford MD [address] [place] [id number] Aysha Summers, DO [address] [place] [address] Juan Manuel Raman MD [address] [place] [address] Precordial pain (Primary Dx); Depression with suicidal ideation; Severe recurrent major depression with psychotic features (CMS/HCC) Discharge Disposition: Another Health Care Institution Not Defined Social History Tobacco Use Types Packs/Day Years Used Date Smoking Tobacco: Never Smokeless Tobacco: Never Sex and Gender Information Value Date Recorded Sex Assigned at Male 04/30/2024 8:52 PM EST Legal Sex Male 7:41 PM EDT Gender Identity Male 04/30/2024 8:52 PM EST Sexual Orientation Choose not to disclose 2024 3:54 PM EST Sexual Orientation Straight 05/05/2024 3: 54 PM EST documented as of this encounter Last Filed Vital Signs Vital Sign Reading [...] Mass Index 43.05 05/26/2024 5:59 PM EST documented in this encounter Functional Status * Are you deaf or do you have serious difficulty hearing? Answer Date of Assessment Author No 05/26/2024 7:50 PM Navjot Brewer RN * Are you blind or do you have serious difficulty seeing, even when wearing glasses? Answer Date of Assessment Author No 05/26/2024 7:50 PM Navjot Brewer RN * Do you have serious difficulty walking or climbing stairs? Answer Date of Assessment Author No 05/26/2024 7:50 PM Navjot Brewer RN * Do you have serious difficulty dressing or bathing? Answer Date of Assessment Author No 05/26/2024 7:50 PM Navjot Brewer RN * Because of a physical, mental, or emotional condition, do you have serious difficulty doing errandsalone such as visiting the doctor? Answer Date of Assessment Author No 05/26/2024 7:50 PM Navjot Brewer RN documented as of this encounter Mental Status * Because of a physical, mental, or emotional condition, do you have serious difficulty concentrating, remembering, or making decisions? (5 years old or older) Answer Entry Date Author No 05/26/2024 7:50 PM Navjot Brewer RN documented in this encounter Medications at Time of Discharge ARIPiprazole (ABILIFY) 5 mg tablet Take 1 tablet (5 mg total) by mouth 1 (one) time each day. 06/19/2017 atorvastatin (LIPITOR) 40 mg tablet Take 1 tablet (40 mg total) by mouth daily. 01/09/2023 Breo Ellipta 100-25 mcg/dose inhaler Inhale 1 puff by mouth 1 (one) time each day. 02/25/2024 haloperidoL (HALDOL) 0.5 mg tablet Take 2 tablets (1 mg total) by mouth 2 (two) times a day. 05/20/2024 lacosamide (VIMPAT) 100 mg tablet Take 1 tablet (100 mg total) by mouth 2 times daily. Max Daily Amount: 200 mg 05/20/2024 levothyroxine (SYNTHROID, LEVOTHROID) 25 mcg tablet Take 1 tablet (25 mcg total) by mouth daily. 04/26/2022 lidocaine 4 % patch Apply 1 patch topically daily. 01/23/2024 LORazepam (ATIVAN) 1 mg tablet Take 1 tablet (1 mg total) by mouth 1 (one) time each day if needed for anxiety. 05/20/2024 metoprolol succinate (TOPROL-XL) 25 mg 24 hr tablet Take 1 tablet (25 mg total) by mouth 2 times daily. 05/20/2024 primidone (MYSOLINE) 50 mg tablet Take 1 tablet (50 mg total) by mouth daily. 01/16/2023 QUEtiapine (SEROquel) 100 mg tablet Take 1 tablet (100 mg total) by mouth 2 times daily. 03/12/2023 QUEtiapine (SEROquel) 300 mg tablet Take 1 tablet (300 mg total) by mouth at bedtime. 05/20/2024 QUEtiapine (SEROquel) 400 mg tablet Take 1 tablet (400 mg total) by mouth at bedtime. 04/26/2022 tamsulosin (FLOMAX) 0.4 mg 24 hr capsule Take 1 capsule (0.4 mg total) by mouth daily. 01/21/2021 5 albuterol HFA (PROAIR HFA ; PROVENTIL HFA ; VENTOLIN HFA) 90 mcg/actuation inhaler Inhale 2 puffs by mouth Every 4 hours as needed for shortness of breath. 11/18/2014 5 amLODIPine (NORVASC) 5 mg tablet Take 1 tablet (5 mg total) by mouth 1 (one) time each day. 01/21/2021 5 atorvastatin (LIPITOR) 80 mg tablet Take 80 mg by mouth at bedtime. benztropine (COGENTIN) 1 mg tablet Take 1 tablet (1 mg total) by mouth 1 (one) time each day. buPROPion (WELLBUTRIN) 75 mg tablet Take 4 tablets (300 mg total) by mouth 2 times daily. buPROPion XL (WELLBUTRIN XL) 300 mg 24 hr tablet Take 300 mg by mouth 1 (one) time each day. Do not crush, chew, or split. carbidopa-levodopa (SINEMET) 25-250 mg per tablet Take 1 tablet by mouth 3 times daily. 05/20/2024 5 clopidogreL (PLAVIX) 75 mg tablet Take 1 tablet (75 mg total) by mouth daily. 05/20/2024 5 cyanocobalamin (VITAMIN B-12) 1,000 mcg tablet Take 1 tablet (1,000 mcg total) by mouth daily. 02/14/2022 5 cyclobenzaprine (FLEXERIL) 10 mg tablet Take 1 tablet (10 mg total) by mouth 3 times daily as needed. 03/19/2024 divalproex (DEPAKOTE ER) 500 mg 24 hr tablet Take 1 tablet (500 mg total) by mouth 1 (one) time each day. famotidine (PEPCID) 20 mg tablet Take 1 tablet (20 mg total) by mouth 1 (one) time each day. 03/05/2024 5 ferrous gluconate (FERGON) 324 mg (37.5 mg iron) tablet Take 1 tablet (324 mg total) by mouth 1 (one) time each day. 03/11/2024 ferrous sulfate 325 mg (65 mg elemental iron) tablet Take 1 tablet (325 mg total) by mouth 1 (one) time each day. furosemide (LASIX) 40 mg tablet Take 0.5 tablets (20 mg total) by mouth daily. 01/22/2024 gabapentin (NEURONTIN) 100 mg capsule Take 1 capsule (100 mg total) by mouth 3 times daily. insulin detemir (LEVEMIR) 100 unit/mL injection 5 Units at bedtime. levothyroxine sodium (TIROSINT) 25 mcg capsule Take 25 mcg by mouth 1 (one) time each day. lisinopriL (PRINIVIL,ZESTRIL) 5 mg tablet Take 1 tablet (5 mg total) by mouth 1 (one) time each day. lisinopriL (PRINIVIL,ZESTRIL) 5 mg tablet Take 1 tablet (5 mg total) by mouth daily. 02/04/2024 5 melatonin 3 mg disintegrating tablet Take 1 tablet (3 mg total) by mouth at bedtime. metFORMIN (GLUCOPHAGE) 500 mg tablet Take 500 mg by mouth 2 (two) times a day with meals. metFORMIN XR (GLUCOPHAGE-XR) 500 mg 24 hr tablet Take 1 tablet (500 mg total) by mouth daily. 01/22/2024 metoprolol succinate (TOPROL-XL) 25 mg 24 hr tablet Take 0.5 tablets (12.5 mg total) by mouth 1 (one) time each day. Do not crush or chew. 15 each 01/02/2022 1:58 PM EDT 01/03/2022 metoprolol tartrate (LOPRESSOR) 25 mg tablet Take 1 tablet (25 mg total) by mouth 2 times daily. 06/18/2017 pantoprazole (PROTONIX) 40 mg EC tablet Take 40 mg by mouth 1 (one) time each day before breakfast. Do not crush, chew, or split. potassium chloride (KLOR-CON M20) 20 mEq CR tablet Take 1 tablet (20 mEq total) by mouth 1 (one) time each day. 01/22/2024 QUEtiapine (SEROquel) 25 mg tablet Take 1 tablet (25 mg total) by mouth 2 times daily. 01/20/2021 5 ranolazine (RANEXA) 500 mg 12 hr tablet Take 1 tablet (500 mg total) by mouth 2 (two) times a day. rivaroxaban (Xarelto) 20 mg tablet Take 1 tablet (20 mg total) by mouth 1 (one) time each day with dinner. 03/07/2023 sertraline (ZOLOFT) 100 mg tablet Take 1 tablet (100 mg total) by mouth daily. 01/09/2023 sucralfate (CARAFATE) 1 gram tablet Take 1 tablet (1 g total) by mouth 2 times daily. 05/20/2024 tiotropium (Spiriva Respimat) 1.25 mcg/actuation inhalation spray Inhale 2 puffs by mouth daily. 02/25/2024 traZODone (DESYREL) 100 mg tablet Take 200 mg by mouth at bedtime. Last filled per [facility] 09/29 documented as of this encounter Discharge Disposition Disposition Code Departure Means Destination Comment s Another Health Care Institution Not Defined documented in this encounter Progress Notes * Jaida Tellez RN - 05/28/2024 1:02 PM EST Pt's home medication lorazepam and belongings locked in safe given to EMS ([facility]). Report was given to Justine MARTINO at [facility]. * Jaida Tellez RN - 05/28/2024 12:36 PM EST Pt's medications obtained from pharmacy by this RN. * Jaida Tellez RN - 05/28/2024 12:24 PM EST Assumed care of this patient. Plan to tx to [facility] at 1300, pt does have meds in pharmacy and belongings in safe - will give to EMS. Pt requesting something for his anxiety, provider notified Ativan given. Pt c/o chest pain 10/16 that has been ongoing since he arrived to ED, providernotified. * Lupis Marroquin - 05/28/2024 9:57 AM EST Patient accepted to [facility], unit M5, by Dr Santana for today 05/28/24. ETA will bedetermined during nurse to nurse. * Lew Owusu RN - 05/28/2024 4:39 AM EST Pt has belongings that went to the safe and pts belongings sealed with pt label. Belonging list notcompleted so this RN went through and opened sealed bags in order to complete belongings list. Pt backpack front pouch zippers is masterlocked shut together unable to look through front pouch of backpack at this time * Lew Owusu RN - 05/27/2024 11:30 PM EST Assumed care of pt. Pt in no acute distress sleeping in position of comfort with even and non labored respirations. Security and PO at watch. * Presley Morris RN - 05/27/2024 9:45 PM EST Pt refuses temperature vital sign at this time, pt was educated that temp will need to be taken in a bit, this RN will try after pt has had snack. Presley Morris RN 05/27/[id number] * Mirella Reddy RN - 05/27/2024 12:59 PM EST [facility], report given to Presley MARTINO. * Reena Lu RN - 05/27/2024 1:03 AM EST When reviewing pt's MAR, this RN noted a one time dose of lasix due tonight. This RN discussed withDr Manuel who states meant to order as daily AM med. This RN discontinued one time dose and ordereddaily dose per v/o. 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 PT NOW C/O OF SI. PT YELLING STATING STAFF IS GIVING HIMATTITUDE. PT YELLED AT OPERATIONS DEVELOPER DURING RAPID RESPONSE IN THE POC. URINE SAMPLE COLLECTED AT THIS TIME. * La Contreras RN - 05/26/2024 5:56 PM EST Pt to Ed for 10/10 chest pain [place] [employer] [place]. Pt was at rest when the pain started and describes the pain as an elephant sitting on my chest. Pain radiates down the L arm and to the R chest as well. States that he has had 6 MA's and 1 stent placed but this feels worse. At the end of triage pt states he does not want to live anymore and has a plan to end his life by ju mping off a building. Reports he has been feeling suicidal for 7 hours now. * Jus Klein, - 05/26/2024 5:34 PM EST Emergency Medicine Note Patient Name: Charlie Rios Initial Evaluation: 05/26/2024 : 1975 Patient's PCP: No Pcp Physician Emergency Physician: Jus Klein DO History of Present Illness Chief Complaint: Chief Complaint Patient presents with Chest Pain Suicidal HPI: This 48-year-old male with significant past medical history, including CAD with cardiac stenting, CHF, A-fib diabetes, hypertension, reported MIs, bipolar disorder, to the emergency department complaining of sternal area chest pressure that occasionally radiates to his left arm that reportedlybegan around 3 PM today. He reportedly was [place] [employer] [place] today when symptoms began. No shortness of breath. No back pain. No fever, chills or sweats. No abdominal plain or vomiting or diarrhea. Patient, patient reports that he also feels suicidal stating he has a plan to jump off a bridge but has made no attempt to hurt himself including no history of toxic ingestions. No trauma or injury. He denies any alcohol or illicit drug use. No other acute complaints. ROS: I have performed a ROS with the pertinent positives and negatives documented in the history ofpresent illness. Previous History Past Medical History: Diagnosis Date A-fib ([facility]) Bipolar disorder ([facility]) Diabetes mellitus ([facility]) HLD (hyperlipidemia) Hypertension Morbid obesity ([facility]) Myocardial infarction ([facility]) x4 DIMITRIS (obstructive sleep apnea) PTSD (post-traumatic stress disorder) Pulmonary embolism ([facility]) 2020 Schizophrenia ([facility]) Past Surgical History: Procedure Laterality Date CORONARY ANGIOPLASTY WITH STENT PLACEMENT 1999 [facility] [address] Social History Tobacco Use Smoking status: Never Smokeless tobacco: Never Family History Problem Relation Name Age of Onset Coronary artery disease Mother is allergic to amoxicillin, aspirin, ibuprofen, nitroglycerin, and tylenol [acetaminophen]. No current facility-administered medications on file prior to encounter. Current Outpatient Medications on File Prior to Encounter Medication Sig Dispense Refill ARIPiprazole (ABILIFY) 5 mg tablet Take 1 tablet (5 mg total) by mouth 1 (one) time each day. atorvastatin (LIPITOR) 40 mg tablet Take 1 tablet (40 mg total) by mouth daily. Breo Ellipta 100-25 mcg/dose inhaler Inhale 1 puff by mouth 1 (one) time each day. haloperidoL (HALDOL) 0.5 mg tablet Take 2 tablets (1 mg total) by mouth 2 (two) times a day. lacosamide (VIMPAT) 100 mg tablet Take 1 tablet (100 mg total) by mouth 2 times daily. Max Daily Amount: 200 mg levothyroxine (SYNTHROID, LEVOTHROID) 25 mcg tablet Take 1 tablet (25 mcg total) by mouth daily. lidocaine 4 % patch Apply 1 patch topically daily. LORazepam (ATIVAN) 1 mg tablet Take 1 tablet (1 mg total) by mouth 1 (one) time each day if needed for anxiety. metoprolol succinate (TOPROL-XL) 25 mg 24 hr tablet Take 1 tablet (25 mg total) by mouth 2 times daily. primidone (MYSOLINE) 50 mg tablet Take 1 tablet (50 mg total) by mouth daily. QUEtiapine (SEROquel) 100 mg tablet Take 1 tablet (100 mg total) by mouth 2 times daily. QUEtiapine (SEROquel) 300 mg tablet Take 1 tablet (300 mg total) by mouth at bedtime. QUEtiapine (SEROquel) 400 mg tablet Take 1 tablet (400 mg total) by mouth at bedtime. tamsulosin (FLOMAX) 0.4 mg 24 hr capsule Take 1 capsule (0.4 mg total) by mouth daily. albuterol HFA (PROAIR HFA ; PROVENTIL HFA ; VENTOLIN HFA) 90 mcg/actuation inhaler Inhale 2 puffs by mouth Every 4 hours as needed for shortness of breath. amLODIPine (NORVASC) 5 mg tablet Take 1 tablet (5 mg total) by mouth 1 (one) time each day. atorvastatin (LIPITOR) 80 mg tablet Take 80 mg by mouth at bedtime. (Patient not taking: Reported on 05/27/2024) benztropine (COGENTIN) 1 mg tablet Take 1 tablet (1 mg total) by mouth 1 (one) time each day. (Patient not taking: Reported on 05/27/2024) buPROPion (WELLBUTRIN) 75 mg tablet Take 4 tablets (300 mg total) by mouth 2 times daily. (Patient not taking: Reported on 05/27/2024) buPROPion XL (WELLBUTRIN XL) 300 mg 24 hr tablet Take 300 mg by mouth 1 (one) time each day. Do notcrush, chew, or split. carbidopa-levodopa (SINEMET) 25-250 mg per tablet Take 1 tablet by mouth 3 times daily. clopidogreL (PLAVIX) 75 mg tablet Take 1 tablet (75 mg total) by mouth daily. cyanocobalamin (VITAMIN B-12) 1,000 mcg tablet Take 1 tablet (1,000 mcg total) by mouth daily. cyclobenzaprine (FLEXERIL) 10 mg tablet Take 1 tablet (10 mg total) by mouth 3 times daily as needed. divalproex (DEPAKOTE ER) 500 mg 24 hr tablet Take 1 tablet (500 mg total) by mouth 1 (one) time each day. (Patient not taking: Reported on 05/27/2024) famotidine (PEPCID) 20 mg tablet Take 1 tablet (20 mg total) by mouth 1 (one) time each day. ferrous gluconate (FERGON) 324 mg (37.5 mg iron) tablet Take 1 tablet (324 mg total) by mouth 1 (one) time each day. (Patient not taking: Reported on 05/27/2024) ferrous sulfate 325 mg (65 mg elemental iron) tablet Take 1 tablet (325 mg total) by mouth 1 (one) time each day. furosemide (LASIX) 40 mg tablet Take 0.5 tablets (20 mg total) by mouth daily. gabapentin (NEURONTIN) 100 mg capsule Take 1 capsule (100 mg total) by mouth 3 times daily. insulin detemir (LEVEMIR) 100 unit/mL injection 5 Units at bedtime. levothyroxine sodium (TIROSINT) 25 mcg capsule Take 25 mcg by mouth 1 (one) time each day. (Patientnot taking: Reported on 05/27/2024) lisinopriL (PRINIVIL,ZESTRIL) 5 mg tablet Take 1 tablet (5 mg total) by mouth 1 (one) time each day. lisinopriL (PRINIVIL,ZESTRIL) 5 mg tablet Take 1 tablet (5 mg total) by mouth daily. melatonin 3 mg disintegrating tablet Take 1 tablet (3 mg total) by mouth at bedtime. metFORMIN (GLUCOPHAGE) 500 mg tablet Take 500 mg by mouth 2 (two) times a day with meals. metFORMIN XR (GLUCOPHAGE-XR) 500 mg 24 hr tablet Take 1 tablet (500 mg total) by mouth daily. (Patient not taking: Reported on 05/27/2024) metoprolol succinate (TOPROL-XL) 25 mg 24 hr tablet Take 0.5 tablets (12.5 mg total) by mouth 1 (one) time each day. Do not crush or chew. 15 each 0 metoprolol tartrate (LOPRESSOR) 25 mg tablet Take 1 tablet (25 mg total) by mouth 2 times daily. (Patient not taking: Reported on 05/27/2024) pantoprazole (PROTONIX) 40 mg EC tablet Take 40 mg by mouth 1 (one) time each day before breakfast.Do not crush, chew, or split. (Patient not taking: Reported on 05/27/2024) potassium chloride (KLOR-CON M20) 20 mEq CR tablet Take 1 tablet (20 mEq total) by mouth 1 (one) time each day. (Patient not taking: Reported on 05/27/2024) QUEtiapine (SEROquel) 25 mg tablet Take 1 tablet (25 mg total) by mouth 2 times daily. ranolazine (RANEXA) 500 mg 12 hr tablet Take 1 tablet (500 mg total) by mouth 2 (two) times a day. rivaroxaban (Xarelto) 20 mg tablet Take 1 tablet (20 mg total) by mouth 1 (one) time each day with dinner. sertraline (ZOLOFT) 100 mg tablet Take 1 tablet (100 mg total) by mouth daily. sucralfate (CARAFATE) 1 gram tablet Take 1 tablet (1 g total) by mouth 2 times daily. tiotropium (Spiriva Respimat) 1.25 mcg/actuation inhalation spray Inhale 2 puffs by mouth daily. traZODone (DESYREL) 100 mg tablet Take 200 mg by mouth at bedtime. Last filled per [facility] 09/29 (Patient not taking: Reported on 05/27/2024) [DISCONTINUED] clopidogreL (PLAVIX) 75 mg tablet Take 1 tablet (75 mg total) by mouth 1 (one) time each day. [DISCONTINUED] gabapentin (NEURONTIN) 300 mg capsule Take 300 mg by mouth 2 (two) times a day. [facility] per [facility] 09/29 (Patient not taking: Reported on 05/27/2024) [DISCONTINUED] gabapentin (NEURONTIN) 300 mg capsule Take 1 capsule (300 mg total) by mouth 3 timesdaily. (Patient not taking: Reported on 05/27/2024) [DISCONTINUED] haloperidoL (HALDOL) 2 mg tablet Take 1 tablet (2 mg total) by mouth daily. (Patientnot taking: Reported on 05/27/2024) [DISCONTINUED] haloperidoL (HALDOL) 5 mg tablet Take 1 tablet (5 mg total) by mouth 2 times daily. (Patient not taking: Reported on 05/27/2024) [DISCONTINUED] rivaroxaban (XARELTO) 20 mg tablet Take 1 tablet (20 mg total) by mouth 1 (one) timeeach day with dinner. Take with food. Last filled per [facility] 09/29 Physical Exam ED Triage Vitals [05/26/24 5929] Temp Heart Rate Resp BP 36.7 ??C (98.1 ??F) 76 18 102/62 SpO2 Temp Source Heart Rate Source Patient Position 100 % Oral Radial Sitting BP Location FiO2 (%) Left arm -- General: Alert and oriented x 3, nontoxic, in no acute distress. Conversing and following commands appropriately with clear sensorium. HEENT: [place] and moist neck: Soft and supple Chest: Good air entry bilaterally, no evidence of respiratory distress Circulatory: RRR, extremities well perfused Abdomen: Soft, non-distended, Non-Tender, good bowel sounds x 4 quadrants, no rebound or guarding Extremities: Warm and well-perfused skin: Warm and dry Neuro: Alert and oriented x 3, no obvious gross acute focal deficits Psychiatric: Reports SI no HI or visual auditory hallucinations reported Results Labs Reviewed ACETAMINOPHEN LEVEL - Abnormal Result Value Acetaminophen Level <2.0 (*) SALICYLATE LEVEL - Abnormal Salicylate Level <1.7 (*) DRUG ABUSE SCREEN 8A PANEL, URINE - Abnormal Amphetamine Screen, Ur Negative Barbiturate Screen, Ur Negative Benzodiazepine Screen, Ur Negative Cocaine Screen, Ur Negative Opiate Screen, Ur Positive (*) Cannabinoid (THC) Screen, Ur Negative Oxycodone Screen, Ur Positive (*) Fentanyl, Ur Negative Narrative: Assay cutoffs: Amphetamines 1000 ng/mL Barbiturates 200 ng/mL Benzodiazepines 200 ng/mL Cocaine 300 ng/mL Fentanyl 1 ng/mL Opiates 300 ng/mL Oxycodone 100 ng/mL THC 50 ng/mL Semi-quantitative assay for screening purposes only. Unconfirmed screening result should not be used for non-medical purposes. *ALTERNATE METHOD CONFIRMATION DONE UPON REQUEST ONLY* CBC WITH AUTO DIFFERENTIAL - Abnormal WBC 5.2 RBC 4.60 Hemoglobin 10.9 (*) Hematocrit 35.5 (*) MCV 77.3 (*) MCH 23.7 (*) MCHC 30.7 (*) RDW 15.9 (*) Platelets 377 MPV 10.1 NRBC 0.0 NRBC Absolute 0.00 Neutrophils Relative 59.1 Lymphocytes Relative 26.5 Monocytes Relative 11.3 Eosinophils Relative 1.9 Basophils Relative 0.4 Immature Granulocytes Relative 0.8 Neutrophils Absolute 3.07 Lymphocytes Absolute 1.38 Monocytes Absolute 0.59 Eosinophils Absolute 0.10 Basophils Absolute 0.02 Immature Granulocytes Absolute 0.04 (*) TROPONIN I HIGH SENSITIVITY - Normal High Sensitivity Troponin I <3 Narrative: High levels of biotin in samples may falsely decrease hsTroponin values. Use caution when interpreting hsTroponin results in patients taking biotin who exhibit renal impairment (eGFR <60) or in patients taking more than 20 mg/day of biotin. TROPONIN I HIGH SENSITIVITY - Normal High Sensitivity Troponin I <3 Narrative: High levels of biotin in samples may falsely decrease hsTroponin values. Use caution when interpreting hsTroponin results in patients taking biotin who exhibit renal impairment (eGFR <60) or in patients taking more than 20 mg/day of biotin. LIPASE - Normal Lipase 26 MAGNESIUM - Normal Magnesium 2.0 B-TYPE NATRIURETIC PEPTIDE - Normal BNP 18 ETHANOL - Normal Ethanol Level <3 BUPRENORPHINE SCREEN, URINE - Normal Buprenorphine Screen Urine Negative Narrative: Assay cutoff 5 ng/mL Semi-quantitative assay for screening purposes only. Unconfirmed screening result should not be used for non-medical purposes. *ALTERNATE METHOD CONFIRMATION DONE UPON REQUEST ONLY* PHENCYCLIDINE, URINE - Normal PCP Scrn, Ur Negative METHADONE SCREEN, URINE - Normal Methadone Screen, Urine Negative COMPREHENSIVE METABOLIC PANEL - Normal Sodium 136 Potassium 4.0 Chloride 105 CO2 23 Anion Gap 8 Glucose 86 BUN 14 Creatinine 0.73 eGFR 113 BUN/Creatinine Ratio 19.2 Calcium 8.9 AST (SGOT) 17 ALT (SGPT) 21 Alkaline Phosphatase 106 Total Protein 6.7 Albumin 3.5 Total Bilirubin 0.2 ACTIVATED PARTIAL THROMBOPLASTIN TIME - Normal aPTT 35.5 PROTHROMBIN TIME WITH INR - Normal Protime 13.7 INR 1.1 CBC AND DIFFERENTIAL Narrative: The following orders were created for panel order CBC and differential. Procedure Abnormality Status --------- ------ CBC auto differential[[id number]] Abnormal Final result Please view results for these tests on the individual orders. Abnormal Labs Reviewed ACETAMINOPHEN LEVEL - Abnormal; Notable for the following components: Result Value Acetaminophen Level <2.0 (*) All other components within normal limits SALICYLATE LEVEL - Abnormal; Notable for the following components: Salicylate Level <1.7 (*) All other components within normal limits DRUG ABUSE SCREEN 8A PANEL, URINE - Abnormal; Notable for the following components: Opiate Screen, Ur Positive (*) Oxycodone Screen, Ur Positive (*) All other components within normal limits Narrative: Assay cutoffs: Amphetamines 1000 ng/mL Barbiturates 200 ng/mL Benzodiazepines 200 ng/mL Cocaine 300 ng/mL Fentanyl 1 ng/mL Opiates 300 ng/mL Oxycodone 100 ng/mL THC 50 ng/mL Semi-quantitative assay for screening purposes only. Unconfirmed screening result should not be used for non-medical purposes. *ALTERNATE METHOD CONFIRMATION DONE UPON REQUEST ONLY* CBC WITH AUTO DIFFERENTIAL - Abnormal; Notable for the following components: Hemoglobin 10.9 (*) Hematocrit 35.5 (*) MCV 77.3 (*) MCH 23.7 (*) MCHC 30.7 (*) RDW 15.9 (*) Immature Granulocytes Absolute 0.04 (*) All other components within normal limits CT Angio Chest wo and/or w Contrast Final Result Impression: No evidence of pulmonary embolus This document has been electronically signed by: Daniel John MD on 05/26/2024 23:44:34 XR Chest 2 Views Final Result Limited depth of inspiration as also seen on 04/30/2024. Left base discoid atelectasis versus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 ORDERABLES Final Res ult Performing Organization Address [facility]/ZIP Co de Phone Number [facility] [address] [place] [address], [place] [phone] * B-type natriuretic peptide (05/26/2024 6:24 PM EST) BNP 18 <=100 pcg/mL LAB CHEMISTRY METHOD 05/26/2024 7:47 PM EST [facility] Blood Venous blood specimen / Unknown Venipuncture / Unknown 05/26/2024 6:24 PM EST 05/26/2024 7:06 PM EST us Jus Klein DO LAB BLOOD ORDERABLES Final Res ult Performing Organization Address [facility]/ZIP Co de Phone Number [facility] [address] [place] [address], [place] [phone] * Magnesium (05/26/2024 6:24 PM EST) Pathologist [facility] Magnesium 2.0 1.9 - 2.6 mg/dL LAB CHEMISTRY METHOD 05/26/2024 7:53 PM EST [facility] Blood Venous blood specimen / Unknown Venipuncture / Unknown 05/26/2024 6:24 PM EST 05/26/2024 7:06 PM EST us Jus Klein DO LAB BLOOD ORDERABLES Final Res ult Performing Organization Address [facility]/ZIP Co de Phone Number [facility] [address] [place] [address], [place] [phone] * Lipase (05/26/2024 6:24 PM EST) Lipase 26 13 - 75 unit/L LAB CHEMISTRY METHOD 05/26/2024 7:53 PM EST [facility] Blood Venous blood specimen / Unknown Venipuncture / Unknown 05/26/2024 6:24 PM EST 05/26/2024 7:06 PM EST Jus Klein DO LAB BLOOD ORDERABLES Final Res ult Performing Organization Address [facility] de Phone Number [facility] [address] [place] [address], [place] [phone] * Troponin I high sensitivity (05/26/2024 6:24 PM EST) [facility] [address] High Sensitivity Troponin I <3 <=79 ng/L LAB CHEMISTRY METHOD 05/26/2024 7:41 PM EST [facility] Blood Venous blood specimen / Unknown Venipuncture / Unknown 05/26/2024 6:24 PM EST 05/26/2024 7:07 PM EST Narrative [facility] - 05/26/2024 7:41 PM EST High levels of biotin in samples may falsely decrease hsTroponin values. ??Use caution when interpreting hsTroponin results in patients taking biotin who exhibit renal impairment (eGFR <60) or in patients taking more than 20 mg/day of biotin. us Jus Klein DO LAB BLOOD ORDERABLES Final Res ult Performing Organization Address [facility] de Phone Number [facility] [address] [place] [address], [place] [phone] * Methadone, urine (05/26/2024 6:23 PM EST) [facility] [address] Methadone Screen, Urine Negative Negative LAB CHEMISTRY [...] ORDERABLES Final Res ult Performing Organization Address City/[facility]/ZIP Co de Phone Number [facility] [address] [place] [address], [place] [phone] * Phencyclidine, urine (05/26/2024 6:23 PM EST) [...] ORDERABLES Final Res ult Performing Organization Address [facility]/ZIP Co de Phone Number [facility] [address] [place] [address], [place] [phone] * Buprenorphine screen, urine (05/26/2024 6:23 PM [...] DO LAB URINE ORDERABLES Final Res ult [facility] [address] [place] [address], [place] [phone] * (ABNORMAL) Drug abuse screen 8a panel, urine (05/26/2024 6:23 PM EST) [facility] [address] Amphetamine Screen, Ur Negative Negative LAB CHEMISTRY METHOD 5 7:52 PM EST [facility] Comment:Certain OTC medicati ons containing ephedrine, phenylephrine, pseudoephedrine and phenylpropanolamine can cause false positive results. Barbiturate Screen, Ur Negative Negative LAB CHEMISTRY METHOD 5 7:52 PM EST [facility] Benzodiazepine Screen, Ur Negative Negative LAB CHEMISTRY METHOD 5 7:52 PM EST [facility] Cocaine Screen, Ur Negative Negative LAB CHEMISTRY METHOD 5 7:52 PM EST [facility] Opiate Screen, Ur Positive(A ) Negative LAB CHEMISTRY METHOD 5 7:52 PM [facility] Cannabinoid (THC) Screen, Ur Negative Negative LAB CHEMISTRY METHOD 5 7:52 PM EST [facility] Comment:Specimens from patie nts taking pantoprazole sodium (Protonix) have been shown to produce false positive results. Oxycodone Screen, Ur Positive(A ) Negative LAB CHEMISTRY METHOD 5 7:52 PM EST [facility] Fentanyl, Ur Negative Negative LAB CHEMISTRY METHOD 5 7:52 PM [facility] Urine Urine specimen obtained by clean catch procedure / Unknown Non-blood Collection / Unknown 05/26/2024 6:23 PM EST 05/26/2024 7:09 PM EST [facility] - 05/26/2024 7:52 PM EST Assay [...] ORDERABLES Final Res ult Performing Organization Address City/[facility] Co de Phone Number [facility] ([facility]) [facility] [address] [place] [address], [place] [phone] * ECG 12 lead (05/26/2024 5:52 PM EST) Ventricular Rate ECG 76 BPM GEMUSE Atrial Rate 76 BPM GEMUSE P-R Interval 190 ms GEMUSE QRS Duration 102 ms GEMUSE Q-T Interval 368 ms GEMUSE QTc 414 ms GEMUSE P Wave [place] 12 degrees GEMUSE R [place] 22 degrees GEMUSE T [place] 45 degrees GEMUSE ECG Interpretation Sinus rhythm with occasional Premature ventricular complexes Otherwise normal ECG When compared with ECG of 09-MAY-2024 19:56, Premature ventricular complexes are now Present Confirmed by Skye LALA JOHN ([id number]) on 05/27/2024 7:46:26 AM GEMUSE 05/26/2024 5:52 PM EST 05/27/2024 7:46 AM EST Jus Klein DO ECG ORDERABLES Final Result Performing Organization Address [facility] Co de Phone Number GEMUSE documented in this encounter Visit Diagnoses Diagnosis Precordial pain- Primary Depression with suicidal ideation 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 Given 05/28/2024 8:33 AM EST 300 mg Given 05/27/2024 7:31 PM EST 300 mg carbidopa-levodopa (SINEMET) 25-250 mg per tablet 1 tablet 1 tablet, oral, 3 times daily, First dose on Sun05/27/24 at 2100, Tube feeds or high calorie meals may interact with carbidopa/levodopa. Monitor patient for Parkinson's disease symptom control and notify provider to make adjustments to medication dosage and/or nutritional intake (consider bolus tube feeds, holding tube feeds two hours before and after administration, decreasing protein intake) if loss of symptom control is noted. Given 05/28/2024 10:23 AM EST 1 tabl et Given 05/27/2024 9:26 PM EST 1 tablet gabapentin (NEURONTIN) capsule 300 mg 300 mg, oral, Every 12 hours scheduled, First dose on Sun05/27/24 at 2100 Given 05/28/2024 8:34 AM EST 300 mg Given 05/27/2024 9:26 PM EST 300 mg melatonin tablet 3 mg 3 mg, oral, Nightly, First dose on Sun05/27/24 at 2100 Given 05/27/2024 9:26 PM EST 3 mg metFORMIN (GLUCOPHAGE) tablet 500 mg 500 mg, oral, 2 times daily with meals, First dose on Sun05/27/24 at 1829 Given 05/28/2024 8:40 AM EST 500 mg Given 05/27/2024 7:31 PM EST 500 mg QUEtiapine (SEROquel) tablet 400 mg 400 mg, oral, Nightly, First dose on Sun05/27/24 at 2238 Given 05/27/2024 10:51 PM EST 400 mg rivaroxaban (XARELTO) tablet 20 mg 20 mg, oral, Daily with dinner, First dose on Sun05/27/24 at 1851, Best administered with food or immediately before tube feedings. If ordered via NG or G-tube route, crush and mix with 50 mL water; give within 4 hours of mixing., Indication: Atrial Fibrillation Given 05/27/2024 7:31 PM EST 20 mg sertraline (ZOLOFT) tablet 100 mg 100 mg, oral, Daily, First dose on Sun05/27/24 at 1829 Given 05/28/2024 8:33 AM EST 100 mg Given 05/27/2024 7:32 PM EST 100 mg Inactive Administered Medications - up to 3 most recent administrations Medication Order MAR Action Action Date Dose Rate Site iopamidoL (ISOVUE-370) 370 mg iodine /mL (76 %) injection 100 mL 100 mL, intravenous, Once in imaging, Starting on Sun05/26/24 at 2302, For 1 dose Given 05/26/2024 11:03 PM EST 90 mL LORazepam (ATIVAN) tablet 1 mg 1 mg, oral, Once, On Sun05/27/24 at 1132, For 1 dose Given 05/27/2024 11:36 AM EST 1 mg LORazepam (ATIVAN) tablet 1 mg 1 mg, oral, Once, On Sun05/28/24 at 1158, For 1 dose Given 05/28/2024 12:07 PM EST 1 mg melatonin tablet 3 mg 3 mg, oral, Nightly, First dose on Sun05/27/24 at 0114 Given 05/27/2024 1:32 AM EST 3 mg QUEtiapine (SEROquel) tablet 400 mg 400 mg, oral, Once, On Sun05/27/24 at 0114, For 1 dose Given 05/27/2024 1:32 AM EST 400 mg sodium chloride 0.9 % flush 10 mL 10 mL, intravenous, Once, On Sun05/26/24 at 2304, For 1 dose Given 05/26/2024 11:03 PM EST 10 mL documented in this encounter Discontinued Medications Medication Sig Discontinue Reason Start Date End Da te clopidogreL (PLAVIX) 75 mg tablet Take 1 tablet (75 mg total) by mouth 1 (one) time each day. Entered in Error 05/27/2024 rivaroxaban (XARELTO) 20 mg tablet Take 1 tablet (20 mg total) by mouth 1 (one) time each day with dinner. Take with food. Last filled per [facility] 09/29 Entered in Error 05/27/2024 gabapentin (NEURONTIN) 300 mg capsule Take 300 mg by mouth 2 (two) times a day. Last filled per [facility] 09/29 Alternate therapy 05/27/2024 gabapentin (NEURONTIN) 300 mg capsule Take 1 capsule (300 mg total) by mouth 3 times daily. Alternate therapy 05/27/2024 haloperidoL (HALDOL) 2 mg tablet Take 1 tablet (2 mg total) by mouth daily. Alternate therapy 05/20/2024 05/27/2024 haloperidoL (HALDOL) 5 mg tablet Take 1 tablet (5 mg total) by mouth 2 times daily. Alternate therapy 05/27/2024 documented as of this encounter Historical Medications * This list may reflect changes made after this encounter. ranolazine (RANEXA) 500 mg 12 hr tablet Take 1 tablet (500 mg total) by mouth 2 (two) times a day. cyclobenzaprine (FLEXERIL) 10 mg tablet Take 1 tablet (10 mg total) by mouth 3 times daily as needed. 03/19/2024 Breo Ellipta 100-25 mcg/dose inhaler Inhale 1 puff by mouth 1 (one) time each day. 02/25/2024 ferrous sulfate 325 mg (65 mg elemental iron) tablet Take 1 tablet (325 mg total) by mouth 1 (one) time each day. haloperidoL (HALDOL) 0.5 mg tablet Take 2 tablets (1 mg total) by mouth 2 (two) times a day. 05/20/2024 QUEtiapine (SEROquel) 100 mg tablet Take 1 tablet (100 mg total) by mouth 2 times daily. 03/12/2023 QUEtiapine (SEROquel) 400 mg tablet Take 1 tablet (400 mg total) by mouth at bedtime. 04/26/2022 gabapentin (NEURONTIN) 100 mg capsule Take 1 capsule (100 mg total) by mouth 3 times daily. insulin detemir (LEVEMIR) 100 unit/mL injection 5 Units at bedtime. lacosamide (VIMPAT) 100 mg tablet Take 1 tablet (100 mg total) by mouth 2 times daily. Max Daily Amount: 200 mg 05/20/2024 lidocaine 4 % patch Apply 1 patch topically daily. 01/23/2024 LORazepam (ATIVAN) 1 mg tablet Take 1 tablet (1 mg total) by mouth 1 (one) time each day if needed for anxiety. 05/20/2024 melatonin 3 mg disintegrating tablet Take 1 tablet (3 mg total) by mouth at bedtime. rivaroxaban (Xarelto) 20 mg tablet Take 1 tablet (20 mg total) by mouth 1 (one) time each day with dinner. 03/07/2023 metoprolol succinate (TOPROL-XL) 25 mg 24 hr tablet Take 1 tablet (25 mg total) by mouth 2 times daily. 05/20/2024 metFORMIN XR (GLUCOPHAGE-XR) 500 mg 24 hr tablet Take 1 tablet (500 mg total) by mouth daily. 01/22/2024 lisinopriL (PRINIVIL,ZESTRIL) 5 mg tablet Take 1 tablet (5 mg total) by mouth daily. 02/04/2024 levothyroxine (SYNTHROID, LEVOTHROID) 25 mcg tablet Take 1 tablet (25 mcg total) by mouth daily. 04/26/2022 clopidogreL (PLAVIX) 75 mg tablet Take 1 tablet (75 mg total) by mouth daily. 05/20/2024 buPROPion (WELLBUTRIN) 75 mg tablet Take 4 tablets (300 mg total) by mouth 2 times daily. atorvastatin (LIPITOR) 40 mg tablet Take 1 tablet (40 mg total) by mouth daily. 01/09/2023 tiotropium (Spiriva Respimat) 1.25 mcg/actuation inhalation spray Inhale 2 puffs by mouth daily. 02/25/2024 tamsulosin (FLOMAX) 0.4 mg 24 hr capsule Take 1 capsule (0.4 mg total) by mouth daily. 01/21/2021 sucralfate (CARAFATE) 1 gram tablet Take 1 tablet (1 g total) by mouth 2 times daily. 05/20/2024 5 sertraline (ZOLOFT) 100 mg tablet Take 1 tablet (100 mg total) by mouth daily. 01/09/2023 QUEtiapine (SEROquel) 25 mg tablet Take 1 tablet (25 mg total) by mouth 2 times daily. 01/20/2021 QUEtiapine (SEROquel) 300 mg tablet Take 1 tablet (300 mg total) by mouth at bedtime. 05/20/2024 primidone (MYSOLINE) 50 mg tablet Take 1 tablet (50 mg total) by mouth daily. 01/16/2023 potassium chloride (KLOR-CON M20) 20 mEq CR tablet Take 1 tablet (20 mEq total) by mouth 1 (one) time each day. 01/22/2024 metoprolol tartrate (LOPRESSOR) 25 mg tablet Take 1 tablet (25 mg total) by mouth 2 times daily. 06/18/2017 furosemide (LASIX) 40 mg tablet Take 0.5 tablets (20 mg total) by mouth daily. 01/22/2024 ferrous gluconate (FERGON) 324 mg (37.5 mg iron) tablet Take 1 tablet (324 mg total) by mouth 1 (one) time each day. 03/11/2024 famotidine (PEPCID) 20 mg tablet Take 1 tablet (20 mg total) by mouth 1 (one) time each day. 03/05/2024 5 divalproex (DEPAKOTE ER) 500 mg 24 hr tablet Take 1 tablet (500 mg total) by mouth 1 (one) time each day. cyanocobalamin (VITAMIN B-12) 1,000 mcg tablet Take 1 tablet (1,000 mcg total) by mouth daily. 02/14/2022 5 carbidopa-levodopa (SINEMET) 25-250 mg per tablet Take 1 tablet by mouth 3 times daily. 05/20/2024 benztropine (COGENTIN) 1 mg tablet Take 1 tablet (1 mg total) by mouth 1 (one) time each day. ARIPiprazole (ABILIFY) 5 mg tablet Take 1 tablet (5 mg total) by mouth 1 (one) time each day. 06/19/2017 amLODIPine (NORVASC) 5 mg tablet Take 1 tablet (5 mg total) by mouth 1 (one) time each day. 01/21/2021 5 albuterol HFA (PROAIR HFA ; PROVENTIL HFA ; VENTOLIN HFA) 90 mcg/actuation inhaler Inhale 2 puffs by mouth Every 4 hours as needed for shortness of breath. 11/18/2014 5 gabapentin (NEURONTIN) 300 mg capsule Take 1 capsule (300 mg total) by mouth 3 times daily. 5 haloperidoL (HALDOL) 5 mg tablet Take 1 tablet (5 mg total) by mouth 2 times daily. 5 haloperidoL (HALDOL) 2 mg tablet Take 1 tablet (2 mg total) by mouth daily. 05/20/2024 5 added in this encounter Active and Recently Administered Medications Times are shown in EST. Scheduled Medication Order 05/26/2024 05/27/2024 05/28/2024 atorvastatin (LIPITOR) tablet 40 mg 40 mg, oral, Nightly, First dose on Sun05/27/24 at 2100 212 (Given - Provider: Presley Morris RN) 2100 (Due) buPROPion XL (WELLBUTRIN XL) 24 hr tablet 300 mg 300 mg, oral, Daily, First dose on Sun05/27/24 at 1829, Do not crush, chew, or split. 1931 (Given - Provider: Presley Morris RN) 0833 (Given - Provider: Luisana Cohen RN) carbidopa-levodopa (SINEMET) 25-250 mg per tablet 1 tablet 1 tablet, oral, 3 times daily, First dose on Sun05/27/24 at 2100, Tube feeds or high calorie meals may interact with carbidopa/levodopa. Monitor patient for Parkinson's disease symptom control and notify provider to make adjustments to medication dosage and/or nutritional intake (consider bolus tube feeds, holding tube feeds two hours before and after administration, decreasing protein intake) if loss of symptom control is noted. 2125 (Given - Provider: Presley Morris RN) 1023 (Given - Provider: Luisana Cohen RN)1400 (Due)2100 (Due) gabapentin (NEURONTIN) capsule 300 mg 300 mg, oral, Every 12 hours scheduled, First dose on Sun05/27/24 at 2099 2125 (Given - Provider: Presley Morris RN) 0834 (Given - Provider: Luisana Cohen RN)2099 (Due) iopamidoL (ISOVUE-370) 370 mg iodine /mL (76 %) injection 100 mL (COMPLETED) 100 mL, intravenous, Once in imaging, Starting on Sun05/26/24 at 2302, For 1 dose 2303 (Given - Provider: Ginger Murcia) LORazepam (ATIVAN) tablet 1 mg (COMPLETED) 1 mg, oral, Once, On Sun05/27/24 at 1132, For 1 dose 1136 (Given - Provider: Mirella Reddy RN) LORazepam (ATIVAN) tablet 1 mg (COMPLETED) 1 mg, oral, Once, On Sun05/28/24 at 1158, For 1 dose 1207 (Given - Provider: Jaida Tellez RN) melatonin tablet 3 mg (CANCELED) 3 mg, oral, Nightly, First dose on Sun05/27/24 at 0114 0132 (Given - Provider: Reena Lu RN) melatonin tablet 3 mg 3 mg, oral, Nightly, First dose on Sun05/27/24 at 2099 2125 (Given - Provider: Presley Morris RN) 2099 (Due) metFORMIN (GLUCOPHAGE) tablet 500 mg 500 mg, oral, 2 times daily with meals, First dose on Sun05/27/24 at 1829 1931 (Given - Provider: Presley Morris RN) 0840 (Given - Provider: Luisana Cohen, [place])1700 (Due) QUEtiapine (SEROquel) tablet 400 mg (COMPLETED) 400 mg, oral, Once, On Sun05/27/24 at 0114, For 1 dose 0132 (Given - Provider: Reena Lu RN) QUEtiapine (SEROquel) tablet 400 mg 400 mg, oral, Nightly, First dose on Sun05/27/24 at 2238 2251 (Given - Provider: Presley Morris RN) 2099 (Due) rivaroxaban (XARELTO) tablet 20 mg 20 mg, oral, Daily with dinner, First dose on Sun05/27/24 at 1851, Best administered with food or immediately before tube feedings. If ordered via NG or G-tube route, crush and mix with 50 mL water; give within 4 hours of mixing., Indication: Atrial Fibrillation 1930 (Given - Provider: Presley Morris RN) 1700 (Due) sertraline (ZOLOFT) tablet 100 mg 100 mg, oral, Daily, First dose on Sun05/27/24 at 1829 1932 (Given - Provider: Presley Morris RN) 0833 (Given - Provider: Luisana Cohen RN) sodium chloride 0.9 % flush 10 mL (COMPLETED) 10 mL, intravenous, Once, On Sun05/26/24 at 2304, For 1 dose 2303 (Given - Provider: Ginger Murcia) documented in this encounter Orders Medications Ordered That Yuan ht Not Have Been Administered Count Last Ordered Date First Ordered Date amLODIPine (NORVASC) tablet 5 mg 05/27/19 25 ARIPiprazole (ABILIFY) tablet 5 mg 2024 atorvastatin (LIPITOR) tablet 80 mg 05/27 benztropine (COGENTIN) tablet 1 mg 2024 buPROPion (WELLBUTRIN) tablet 150 mg 05/10 carbidopa-levodopa (SINEMET) 25-250 mg per tablet 1 tablet 05/27/2024 clopidogreL (PLAVIX) tablet 75 mg 025 divalproex (DEPAKOTE ER) 24 hr tablet 500 mg 05/27/2024 famotidine (PEPCID) tablet 20 mg 05/27/19 25 furosemide (LASIX) tablet 20 mg gabapentin (NEURONTIN) capsule 300 mg levothyroxine (SYNTHROID, LE VOTHROID) tablet 25 mcg 05/27/2024 lisinopriL (PRINIVIL,ZESTRIL) tablet 5 mg 05/27/2024 melatonin tablet 3 mg 05/27/2024 metFORMIN (GLUCOPHAGE) tablet 500 mg 05/10 metoprolol succinate (TOPROL -XL) 24 Hour tablet 12.5 mg 05/27/2024 QUEtiapine (SEROquel) tablet 700 mg 1 05/27 rivaroxaban (XARELTO) tablet 20 mg 1 2024 sertraline (ZOLOFT) tablet 100 mg 1 traZODone (DESYREL) tablet 200 mg 1 025 EKG Orders Without Results Count Last Ordered D ate First Ordered Date ECG 12-LEAD 1 05/26/2024 Diet Count Last Ordered Date First Orde red Date ADULT DIET 1 05/28/2024 Consult Count Last Ordered Date First Orde red Date IP CONSULT TO FUR DRESSER 1 05/27/2024 Precaution Count Last Ordered Date First Orde red Date SUICIDE PRECAUTIONS 1 05/26/2024 documented in this encounter Care Teams Hospitality Ambassador Relationship Specialty Start Date End Date Physician, No Pcp PCP - General 01/25/24 documented as of this encounter
--- OUTSIDE RECORDS SUMMARY | 2024-05-28 13:54 | XMS_ITS ---
Author Organization [facility] Address [id number] [place], [place] [id number] Care Team Providers Care Studio Couch Frame Builder Name Role Phone ARNOLD KUMAR Primary Care Provider Allergies Allergen (clinical drug ingredient) Drug/Non Drug Allergy documented on EMR Reaction Allergy Type Onset Date Status Latex latex (uncoded) Unknown Allergy Acti ve acetaminophen acetaminophen Unknown Drug Allergy Active aspirin aspirin Unknown Drug Allergy Active bee pollen bee pollen Unknown Drug Allergy Activ e ibuprofen ibuprofen Unknown Drug Allergy Active penicillin Unknown Drug Allergy Active REASON FOR VISIT Chronic medical conditions. Medications Medication SIG (Take, Route, Frequency, Duration) Notes Start Date End Date Status Benztropine Mesylate 1 MG 1 tablet Orall y Once a day for 30 days Active Clopidogrel Bisulfate 75 MG 1 tablet Ora lly Once a day for 30 days Active [place] Carbonate 600 MG 1 capsule Orall y twice a day for 30 days Active Atorvastatin Calcium 80 MG 1 tablet Oral ly Once a day for 30 days Active Carbidopa-Levodopa 25-100 MG 1 tablet Or ally three times a day for 30 days Active Metoprolol Succinate ER 50 MG 1 tablet Orally Once a day for 30 days Active Sertraline HCl 100 MG 2 tablet Orally On ce a day for 30 days Active Primidone 50 MG 1 tablet Orally Once a day for 30 days Active Levothyroxine Sodium 25 MCG 1 tablet in the morning on an empty stomach Orally Once a day for 30 days Active Divalproex Sodium ER 500 MG 3 tablet Ora lly Once a day for 30 days Active Lisinopril 5 MG 1 tablet Orally Once a day Active Albuterol Sulfate HFA 108 (90 Base) MCG/ACT 1 puff as needed Inhalation every 4 hrs Active QUEtiapine Fumarate 400 MG 1 tablet at b edtime Orally Once a day Active Tamsulosin HCl 0.4 MG 1 capsule Orally O nce a day Active Rivaroxaban 20 MG 1 tablet with food Orally Once a day Active Ferrous Sulfate 325 (65 Fe) MG 1 tablet Orally daily Active metFORMIN HCl 500 MG 1 tablet with a bari l Orally twice a day 06/22/2023 Active Cyanocobalamin 1000 MCG 1 tablet Orally Once a day Active SEROquel 50 MG 1 tablet at bedtime Orally twice a day 06/22/2023 Active traZODone HCl 100 MG 2 tablet at bedtime Orally Once a day 06/22/2023 Active Lidocaine 5 % 1 patch remove after 12 hours Externally Once a day Active Isosorbide Mononitrate ER 30 MG 1 tablet in the morning Orally Once a day Active Pantoprazole Sodium 40 MG 1 tablet Orall y Once a day Active Sucralfate 1 GM 1 tablet on an empty stomach Orally Twice a day Active Famotidine 20 MG 1 tablet at bedtime Orally Once a day 06/22/2023 Active Problems Problem Type SNOMED Code ICD Code Onset Dates Problem Status W/U Status Risk Notes Problem Solitary nodule of lung (419414998) Lung nodule (R91.1) Active confirmed Vital Signs Blood pressure systolic 124 mm Hg 10/03/19 24 Blood pressure diastolic 80 mm Hg 024 Heart Rate 72 /min 10/03/2023 Respiratory Rate 18 /min 10/03/2023 Encounters Encounter Location Date Provider Diagnosis [facility] [address] [place] [address] 10/03/2023 ARNOLD KUMAR Controlled type 2 diabetes mellitus without complication, unspecified whether shelter insulin use E11.9 ; Hypothyroidism (acquired) E03.9 ; Hyperlipidemia, unspecified E78.5 and Lung nodule R91.1 Assessments Encounter Date Diagnosis (ICD Code) Assessment Notes Treatment Notes Treatment Clinical Notes Section Notes 10/03/2023 Controlled type 2 diabetes mellitus without complication, unspecified whether terminal manager insulin use (ICD-10 - E11.9) Continue on current medications. 10/03/2023 Hypothyroidism (acquired) (ICD-10 - E03.9) Continue on Levothyroxine , monitor TSH. 10/03/2023 Hyperlipidemia, unspecified (ICD-10 - E78.5) Continue on statin. 10/03/2023 Lung nodule (ICD-10 - R91.1) Pulmonary consult. Plan Of Treatment Treatment Notes Assessment Notes Hypothyroidism (acquired) Continue on Le vothyroxine, monitor TSH. Lung nodule Pulmonary consult. Next Appt Details Follow Up: 4 Weeks, Reason: Progress Notes * Charlie HAYWOODDOB: [birth year] (48 yo M)Acc No.[id number]:10/03/2023 Progress Notes Patient:?Charlie HAYWOOD Provider:?ARNOLD KUMAR MD :1975???Age:48 Y???Sex:Male David e:10/03/2023 Address:[address] [place], [place] [id number] Pcp:JOSÉ SILVA Subjective: * Chief Complaints: * ???Chronic medical condition s. * HPI: ???Constitutional:?The patient 48-year-old male was seen for chronic medical conditions. The patient resides at rest home. The patient was found to have apulmonary nodule on chest CT, he has an appointment with pulmonlogy. * ROS:?General/Constitutional:?Change in appetite?denies.?Chills?denies.?Fever?denies.?Admits?Headache.?ENT:?Decreased hearing?denies.?Sore throat?denies.?Swollen glands?denies.?Ophthalmologic:?Blurred vision?denies.?Discharge?denies.?Eye Pain?denies.?Cardiovascular:?Chest pain at rest?denies.?Chest pain with exertion?denies.?Irregular heartbeat?denies.?Shortness of breath?denies.?Respiratory:?Cough?denies.?Admits?Shortness of breath.?Admits?Shortness of breath with exertion.?Wheezing?denies.?Gastrointestinal:?Abdominal pain?denies.?Diarrhea?denies.?Nausea?denies.?Vomiting?denies.?Skin:?Denies?Itching.?Denies?Rash.?Genitourinary:?Denies?Abdominal pain/swelling.?Denies?Blood in urine.?Denies?Difficulty urinating.?Denies?Frequent urination.?Denies?Painful urination.?Neurologic:?Dizziness?denies.?Fainting?denies.?Admits?Headache.?Endocrine:?Cold intolerance?denies.?Excessive thirst?denies.?Heat intolerance?denies.?Weight loss?denies.? * Medical History:? * Surgical History:?cardiac ca theterization 06/19/23 * Hospitalization/Major Diagno stic Procedure:?[facility] for chest pain, CAD, the patient undergone cardiac catheterization. 06/17/23 * Medications:?TakingIsosorbid e Mononitrate ER 30 MG Tablet Extended Release 24 Hour 1 tablet in the morning Orally Once a day Lidocaine 5 % Patch 1 patch remove after 12 hours Externally Once a day Famotidine 20 MG Tablet 1 tablet at bedtime Orally Once a day Sucralfate 1 GM Tablet 1 tablet on an empty stomach Orally Twice a day Pantoprazole Sodium 40 MG Tablet Delayed Release 1 tablet Orally Once a day SEROquel 50 MG Tablet 1 tablet at bedtime Orally twice a day traZODone HCl 100 MG Tablet 2 tablet at bedtime Orally Once a day metFORMIN HCl 500 MG Tablet 1 tablet with a meal Orally twice a day Ferrous Sulfate 325 (65 Fe) MG Tablet 1 tablet Orally daily Cyanocobalamin 1000 MCG Tablet 1 tablet Orally Once a day QUEtiapine Fumarate 400 MG Tablet 1 tablet at bedtime Orally Once a day Albuterol Sulfate HFA 108 (90 Base) MCG/ACT Aerosol Solution 1 puff as needed Inhalation every 4 hrs Lisinopril 5 MG Tablet 1 tablet Orally Once a day Rivaroxaban 20 MG Tablet 1 tablet with food Orally Once a day Tamsulosin HCl 0.4 MG Capsule 1 capsule Orally Once a day Divalproex Sodium ER 500 MG Tablet Extended Release 24 Hour 3 tablet Orally Once a day Levothyroxine Sodium 25 MCG Tablet 1 tablet in the morning on an empty stomach Orally Once a day Primidone 50 MG Tablet 1 tablet Orally Once a day Sertraline HCl 100 MG Tablet 2 tablet Orally Once a day Metoprolol Succinate ER 50 MG Tablet Extended Release 24 Hour 1 tablet Orally Once a day Atorvastatin Calcium 80 MG Tablet 1 tablet Orally Once a day [place] Carbonate 600 MG Capsule 1 capsule Orally twice a day Clopidogrel Bisulfate 75 MG Tablet 1 tablet Orally Once a day Benztropine Mesylate 1 MG Tablet 1 tablet Orally Once a day Carbidopa-Levodopa 25-100 MG Tablet 1 tablet Orally three times a day Taking Isosorbide Mononitrate ER 30 MG Tablet Extended Release 24 Hour 1 tablet in the morning Orally Once a day Taking Lidocaine 5 % Patch 1 patch remove after 12 hours Externally Once a day Taking Famotidine 20 MG Tablet 1 tablet at bedtime Orally Once a day Taking Sucralfate 1 GM Tablet 1 tablet on an empty stomach Orally Twice a day Taking Pantoprazole Sodium 40 MG Tablet Delayed Release 1 tablet Orally Once a day Taking SEROquel 50 MG Tablet 1 tablet at bedtime Orally twice a day Taking traZODone HCl 100 MG Tablet 2 tablet at bedtime Orally Once a day Taking metFORMIN HCl 500 MG Tablet 1 tablet with a meal Orally twice a day Taking Ferrous Sulfate 325 (65 Fe) MG Tablet 1 tablet Orally daily Taking Cyanocobalamin 1000 MCG Tablet 1 tablet Orally Once a day Taking QUEtiapine Fumarate 400 MG Tablet 1 tablet at bedtime Orally Once a day Taking Albuterol Sulfate HFA 108 (90 Base) MCG/ACT Aerosol Solution 1 puff as needed Inhalation every 4 hrs Taking Lisinopril 5 MG Tablet 1 tablet Orally Once a day Taking Rivaroxaban 20 MG Tablet 1 tablet with food Orally Once a day Taking Tamsulosin HCl 0.4 MG Capsule 1 capsule Orally Once a day Taking Divalproex Sodium ER 500 MG Tablet Extended Release 24 Hour 3 tablet Orally Once a day Taking Levothyroxine Sodium 25 MCG Tablet 1 tablet in the morning on an empty stomach Orally Once a day Taking Primidone 50 MG Tablet 1 tablet Orally Once a day Taking Sertraline HCl 100 MG Tablet 2 tablet Orally Once a day Taking Metoprolol Succinate ER 50 MG Tablet Extended Release 24 Hour 1 tablet Orally Once a day Taking Atorvastatin Calcium 80 MG Tablet 1 tablet Orally Once a day Taking [place] Carbonate 600 MG Capsule 1 capsule Orally twice a day Taking Clopidogrel Bisulfate 75 MG Tablet 1 tablet Orally Once a day Taking Benztropine Mesylate 1 MG Tablet 1 tablet Orally Once a day Taking Carbidopa-Levodopa 25-100 MG Tablet 1 tablet Orally three times a day * Allergies:?penicillinacetami nophenaspirinibuprofenbee pollenlatexno[Allergies Verified] Objective: * Vitals:?BP:124/80mm Hg, HR:7 2/min, RR:18/min. * Examination: ???General Examination: ?GENERAL APPEARANCE:?in no acute distress, alert and awake.?HEAD:?normocephalic, atraumatic.?EYES:?pupils equal, round, , sclera non-icteric.?EARS:?normal.?ORAL CAVITY:?mucosa moist.?SKIN:?no suspicious lesions, warm and dry.?HEART:?no murmurs, regular rate and rhythm, S1, S2 normal.?LUNGS:?clear to auscultation bilaterally.?ABDOMEN:?normal, bowel sounds present, soft, nontender, nondistended.?MUSCULOSKELETAL:?cervical spine normal, no swelling or deformity.?EXTREMITIES:?no clubbing, cyanosis, bilateral lower extremity trace edema.?NEUROLOGIC:?nonfocal, motor strength normal upper and lower extremities, sensory exam intact.? Assessment: * Assessment: 1.?Controlled type 2 diabete s mellitus without complication, unspecified whether terminal manager insulin use - E11.9 (Primary)???2.?Hypothyroidism (acquired) - E03.9???3.?Hyperlipidemia, unspecified - E78.5???4.?Lung nodule - R91.1??? Plan: * Treatment: 2.?Hypothyroidism (acquired) ? Notes: Continue on Levothyroxine, monitor TSH. ?? 3.?Hyperlipidemia, unspecifi ed? Clinical Notes: Continue on statin. ?? 4.?Lung nodule? Notes: Pulmonary consult. ?? * Procedure Codes:? * Follow Up:?4 Weeks * Images: * Sign off status: Completed true * Provider:?ARNOLD KUMAR MD Date: ?10/03/2023 Generated for Lopez mixon/Shaun/Soniaitting on:?05/28/2024 01:54 PM EST History and Physical Notes * HPI (History of Present Illness) Category Sub-Category Detail Notes Category Not es Constitutional The patient [age]-year-old male was seen for chronic medical conditions. The patient resides at rest home. The patient was found to have apulmonary nodule on chest CT, he has an appointment with pulmonlogy. Examination Category Sub-Category Detail Notes Category Not es General Examination GENERAL APPEARANCE: in no ac ey[place] distress, alert and awake HEAD: normocephalic, atrau matic EYES: pupils equal, round, , sclera non-icteric EARS: normal HEART: no murmurs, regular rate and rhythm, S1, S2 normal LUNGS: clear to auscultatio n bilaterally ABDOMEN: normal, bowel sounds present, soft, nontender, nondistended NEUROLOGIC: nonfocal, motor stre ngth normal upper and lower extremities, sensory exam intact SKIN: no suspicious lesion s, warm and dry EXTREMITIES: no clubbing, cyanosi s, bilateral lower extremity trace edema MUSCULOSKELETAL: cervical spine constantine l, no swelling or deformity ORAL CAVITY: mucosa moist
--- OUTSIDE RECORDS SUMMARY | 2024-05-28 13:54 | XMS_ITS ---
Author Organization [facility] Address [address] [place], [place] [id number] Care Team Providers Care Panel Lay Up Worker Name Role Phone ARNOLD KUMAR Primary Care Provider [phone] Allergies Allergen (clinical drug ingredient) Drug/Non Drug [...] Duration) Notes Start Date End Date Status Cyanocobalamin 1000 MCG 1 tablet Orally Once a day Active QUEtiapine Fumarate 400 MG 1 tablet at bedtime Orally Once a day 450 mg total dose Active Albuterol Sulfate HFA 108 (90 Base) MCG/ACT 1 puff as needed Inhalation every 4 hrs Active Lisinopril 5 MG 1 tablet Orally Once a day Active Rivaroxaban 20 MG 1 tablet with food Orally Once a day Active Ferrous Sulfate 325 (65 Fe) MG 1 tablet Orally daily Active Pantoprazole Sodium 40 MG 1 tablet Orall y twice a day Active SEROquel 50 MG 1 tablet in am and at bedtime Orally twice a day 06/22/2023 Active traZODone HCl 50 MG 1 tablet at bedtime as needed Orally Once a day 06/22/2023 Active metFORMIN HCl 500 MG 1 tablet with a meal Orally twice a day 06/22/2023 Active Vistaril 25 MG 1 capsule at bedtime as needed Orally Once a day q 6 hrs prn Active diphenhydrAMINE HCl 25 MG 1 capsule at bedtime as needed Orally Once a day Active Lidocaine 5 % 1 patch remove after 12 hours Externally Once a day Active Famotidine 20 MG 1 tablet at bedtime Orally Once a day 06/22/2023 Active Sucralfate 1 GM 1 tablet on an empty stomach Orally Twice a day Active Lacosamide 100 MG 1 tablet Orally Twice a day Active [place] Carbonate 600 MG 1 capsule Orall y twice a day for 30 days Active Clopidogrel Bisulfate 75 MG 1 tablet Orally Once a day for 30 days Active Benztropine Mesylate 1 MG 1 tablet Orall y Once a day for 30 days Active Carbidopa-Levodopa 25-100 MG 1 tablet Orally three times a day for 30 days Active Atorvastatin Calcium 80 MG 1 tablet Orally Once a day for 30 days Active Levothyroxine Sodium 25 MCG 1 tablet in the morning on an empty stomach Orally Once a day for 30 days Active Primidone 50 MG 1 tablet Orally Once a day for 30 days Active Sertraline HCl 100 MG 2 tablet Orally Once a day for 30 days Active Metoprolol Succinate ER 50 MG 1 tablet Orally Once a day for 30 days Active Tamsulosin HCl 0.4 MG 1 capsule Orally Once a day Active Vital Signs Blood pressure systolic 120 mm Hg 11/08/19 24 Blood pressure diastolic 70 mm Hg 024 Heart Rate 80 /min 11/08/2023 Respiratory Rate 18 /min 11/08/2023 Encounters Encounter Location Date Provider Diagnosis [facility] [id number] [facility] [place] [id number] 11/08/2023 ARNOLD KUMAR Controlled type 2 diabetes mellitus without complication, unspecified whether senior living insulin use E11.9 ; Hypothyroidism (acquired) E03.9 ; Hyperlipidemia, unspecified E78.5 and Lung nodule R91.1 Assessments Encounter Date Diagnosis (ICD Code) Assessment Notes Treatment Notes Treatment Clinical Notes Section Notes 11/08/2023 Controlled type 2 diabetes mellitus without complication, unspecified whether termite exterminator insulin use (ICD-10 - E11.9) Continue on Metformin, diabetic diet. 11/08/2023 Hypothyroidism (acquired) (ICD-10 - E03.9) Continue on Levothyroxine, monitor TSH. 11/08/2023 Hyperlipidemia, unspecified (ICD-10 - E78.5) Continue on Atorvastatin, low cholesterol diet. 11/08/2023 Lung nodule (ICD-10 - R91.1) Pulmonary consult. 11/08/2023 Other Ordered labs, cardiology consult. Plan Of Treatment Treatment Notes Assessment Notes Controlled type 2 diabetes m ellitus without complication, unspecified whether senior living insulin use Continue on Metformin, diabetic diet. Hypothyroidism (acquired) Continue on Le vothyroxine, monitor TSH. Hyperlipidemia, unspecified Continue on Atorvastatin, low cholesterol diet. Lung nodule Pulmonary consult. Other Ordered labs, cardio logy consult. Next Appt Details Follow Up: 3 Months, Reason: Progress Notes * Charlie HAYWOODDOB: [birth year] (48 yo M)Acc No.[id number]:11/08/2023 Progress Notes Patient:?Charlie HAYWOOD Provider:?ARNOLD KUMAR MD :1975???Age:48 Y???Sex:Male David e:11/08/2023 Address:[address] [place], [place] [id number] Pcp:JOSÉ SILVA Subjective: * Chief Complaints: * ???Chronic medical condition s. * HPI: ???Constitutional:?The patient 48-year-old male was seen for chronic medical conditions. The patient resides independently. The patient was discharged from [facility] on 11/01/23 for chest pain, he was at the community program after hospitalization and will be discharged home this week. The patient is being followed by psychiatrist, manual lathe machinist, neurologist. * ROS:?General/Constitutional:?Change in appetite?denies.?Chills?denies.?Fever?denies.?Admits?Headache.?ENT:?Decreased hearing?denies.?Sore throat?denies.?Swollen glands?denies.?Ophthalmologic:?Blurred vision?denies.?Discharge?denies.?Eye Pain?denies.?Cardiovascular:?Chest pain at rest?denies.?Chest pain with exertion?denies.?Irregular heartbeat?denies.?Shortness of breath?denies.?Respiratory:?Cough?denies.?Admits?Shortness of breath.?Admits?Shortness of breath with exertion.?Wheezing?denies.?Gastrointestinal:?Abdominal pain?denies.?Diarrhea?denies.?Nausea?denies.?Vomiting?denies.?Skin:?Denies?Itching.?Denies?Rash.?Genitourinary:?Denies?Abdominal pain/swelling.?Denies?Blood in urine.?Denies?Difficulty urinating.?Denies?Frequent urination.?Denies?Painful urination.?Neurologic:?Dizziness?denies.?Fainting?denies.?Admits?Headache.?Endocrine:?Cold intolerance?denies.?Excessive thirst?denies.?Heat intolerance?denies.?Weight loss?denies.? * Medical History:? * Surgical History:?cardiac ca theterization 06/19/23Cholecystectomy in 2008, blood pressure has been gastric bypass 06/15/20082008 * Hospitalization/Major Diagno stic Procedure:?[facility] for chest pain, CAD, the patient undergone cardiac catheterization. 06/17/23 * Medications:?TakingLacosamid e 100 MG Tablet 1 tablet Orally Twice a day Vistaril 25 MG Capsule 1 capsule at bedtime as needed Orally Once a day , Notes to Pharmacist: q 6 hrs prndiphenhydrAMINE HCl 25 MG Capsule 1 capsule at bedtime as needed Orally Once a day Lidocaine 5 % Patch 1 patch remove after 12 hours Externally Once a day Famotidine 20 MG Tablet 1 tablet at bedtime Orally Once a day Sucralfate 1 GM Tablet 1 tablet on an empty stomach Orally Twice a day Pantoprazole Sodium 40 MG Tablet Delayed Release 1 tablet Orally twice a day SEROquel 50 MG Tablet 1 tablet in am and at bedtime Orally twice a day traZODone HCl 50 MG Tablet 1 tablet at bedtime as needed Orally Once a day metFORMIN HCl 500 MG Tablet 1 tablet with a meal Orally twice a day Ferrous Sulfate 325 (65 Fe) MG Tablet 1 tablet Orally daily Cyanocobalamin 1000 MCG Tablet 1 tablet Orally Once a day QUEtiapine Fumarate 400 MG Tablet 1 tablet at bedtime Orally Once a day , Notes to Pharmacist: 450 mg total doseAlbuterol Sulfate HFA 108 (90 Base) MCG/ACT Aerosol Solution 1 puff as needed Inhalation every 4 hrs Lisinopril 5 MG Tablet 1 tablet Orally Once a day Rivaroxaban 20 MG Tablet 1 tablet with food Orally Once a day Tamsulosin HCl 0.4 MG Capsule 1 capsule Orally Once a day Levothyroxine Sodium 25 [...] Tablet 1 tablet Orally Once a day [place] [place] Carbonate 600 MG Capsule 1 capsule Orally twice a day Clopidogrel Bisulfate 75 MG Tablet 1 tablet Orally Once a day Benztropine Mesylate 1 MG Tablet 1 tablet Orally Once a day Carbidopa-Levodopa 25-100 MG Tablet 1 tablet Orally three times a day Taking Lacosamide 100 MG Tablet 1 tablet Orally Twice a day Taking Vistaril 25 MG Capsule 1 capsule at bedtime as needed Orally Once a day , Notes to Pharmacist: q 6 hrs prnTaking diphenhydrAMINE HCl 25 MG Capsule 1 capsule at bedtime as needed Orally Once a day Taking Lidocaine 5 % Patch 1 patch remove after 12 hours Externally Once a day Taking Famotidine 20 MG Tablet 1 tablet at bedtime Orally Once a day Taking Sucralfate 1 GM Tablet 1 tablet on an empty stomach Orally Twice a day Taking Pantoprazole Sodium 40 MG Tablet Delayed Release 1 tablet Orally twice a day Taking SEROquel 50 MG Tablet 1 tablet in am and at bedtime Orally twice a day Taking traZODone HCl 50 MG Tablet 1 tablet at bedtime as needed Orally Once a day Taking metFORMIN HCl 500 MG Tablet 1 tablet with a meal Orally twice a day Taking Ferrous Sulfate 325 (65 Fe) MG Tablet 1 tablet Orally daily Taking Cyanocobalamin 1000 MCG Tablet 1 tablet Orally Once a day Taking QUEtiapine Fumarate 400 MG Tablet 1 tablet at bedtime Orally Once a day , Notes to Pharmacist: 450 mg total doseTaking Albuterol Sulfate HFA 108 (90 Base) MCG/ACT Aerosol Solution 1 puff as needed Inhalation every 4 hrs Taking Lisinopril 5 MG Tablet 1 tablet Orally Once a day Taking Rivaroxaban 20 MG Tablet 1 tablet with food Orally Once a day Taking Tamsulosin HCl 0.4 MG Capsule 1 capsule Orally Once a day Taking Levothyroxine Sodium [...] 1 tablet Orally Once a day Taking [employer] Carbonate 600 MG Capsule 1 capsule Orally twice a day Taking Clopidogrel Bisulfate 75 MG Tablet 1 tablet Orally Once a day Taking Benztropine Mesylate 1 MG Tablet 1 tablet Orally Once a day Taking Carbidopa-Levodopa 25-100 MG Tablet 1 tablet Orally three times a day * Allergies:?penicillinacetami nophenaspirinibuprofenbee pollenlatexno[Allergies Verified] Objective: * Vitals:?BP:120/70mm Hg, HR:8 0/min, RR:18/min. * Examination: ???General Examination: ?GENERAL APPEARANCE:?in no acute distress, alert and awake.?HEAD:?normocephalic, atraumatic.?EYES:?pupils equal, round, , sclera non-icteric.?EARS:?normal hearing to voice tone.?ORAL CAVITY:?mucosa moist.?SKIN:?no suspicious lesions, warm and dry.?HEART:?no murmurs, regular rate and rhythm, S1, S2 normal.?LUNGS:?clear to auscultation bilaterally.?ABDOMEN:?normal, bowel sounds present, soft, nontender, nondistended.?EXTREMITIES:?no clubbing, cyanosis, bilateral lower extremity trace edema.?NEUROLOGIC:?nonfocal, motor strength normal upper and lower extremities, sensory exam intact.?PSYCH:?alert, oriented, cooperative with exam, good eye contact, speech clear.? Assessment: * Assessment: 1.?Controlled type 2 diabete s mellitus without complication, unspecified whether termite exterminator insulin use - E11.9 (Primary)???2.?Hypothyroidism (acquired) - E03.9???3.?Hyperlipidemia, unspecified - E78.5???4.?Lung nodule - R91.1??? Plan: * Treatment: 2.?Hypothyroidism (acquired) ? Notes: Continue on Levothyroxine, monitor TSH. ?? 3.?Hyperlipidemia, unspecifi ed? Notes: Continue on Atorvastatin, low cholesterol diet. ?? 4.?Lung nodule? Notes: Pulmonary consult. ?? 5.?Others? Notes: Ordered labs, cardiology consult. ?? * Procedure Codes:? * Follow Up:?3 Months * Images: * Sign off status: Completed true * Provider:?ARNOLD KUMAR MD Date: ?11/08/2023 Generated for Lopez mixon/Shaun/eTransmitting on:?05/28/2024 01:53 PM EST History and Physical Notes * HPI (History of Present Illness) Category Sub-Category Detail Notes Category Not es Constitutional The patient [age]-year-old male was seen for chronic medical conditions. The patient resides independently. The patient was discharged from [facility] on 11/01/23 for chest pain, he was at the community program after hospitalization and will be discharged home this week. The patient is being followed by psychiatrist, manual lathe machinist, neurologist. Examination Category Sub-Category Detail Notes Category Not es General Examination GENERAL APPEARANCE: in no ac [place] distress, alert and awake HEAD: normocephalic, atrau matic EYES: pupils equal, round, , sclera non-icteric EARS: normal hearing to vo ice tone HEART: no murmurs, regular rate and rhythm, S1, S2 normal LUNGS: clear to auscultatio n bilaterally ABDOMEN: normal, bowel sounds present, soft, nontender, nondistended NEUROLOGIC: nonfocal, motor stre ngth normal upper and lower extremities, sensory exam intact SKIN: no suspicious lesion s, warm and dry EXTREMITIES: no clubbing, cyanosi s, bilateral lower extremity trace edema PSYCH: alert, oriented, contract coordinator perative with exam, good eye contact, speech clear ORAL CAVITY: mucosa moist
--- OUTSIDE RECORDS SUMMARY | 2024-05-28 13:54 | XMS_ITS ---
Author Organization [facility] Address [address] [place] [address] Care Team Providers Care Cloth Carrier Name Role Phone Jus Avery Unavailable [phone] REASON FOR VISIT bad address on file Encounters Encounter Location Date Provider Diagnosis [facility] [address] [place] [address] 10/04/2023 Jus Avery Plan Of Treatment No Information Progress Notes * YOBANYCharlieDOB: [birth year] (48 yo M)Acc No.[id number]:10/04/2023 Patient:?HAYWOODCharlie BAKER :1975???Age:48 Y???Sex:Male Address:[address] [place] [id number] * true * Date:? Generated for Lopez mixon/Shaun/eTransmitting on:?05/28/2024 11:53 AM MST
--- OUTSIDE RECORDS SUMMARY | 2024-05-28 13:54 | XMS_ITS | Patient Health Record ---
Author Organization [facility] Address [address] [facility] [place] [id number] Care Team Providers Care Jewelry Mechanic Name Role Phone [facility] Primary Care Provider [phone] Allergies Allergen (clinical drug ingredient) Drug/Non Drug Allergy documented on EMR Reaction Allergy Type Onset Date Status Latex latex (uncoded) Unknown Allergy Acti ve acetaminophen acetaminophen Unknown Drug Allergy Active aspirin aspirin Unknown Drug Allergy Active bee pollen bee pollen Unknown Drug Allergy Activ e ibuprofen ibuprofen Unknown Drug Allergy Active penicillin Unknown Drug Allergy Active Reason For Referral No Information Medications Medication SIG (Take, Route, Frequency, Duration) Notes Start Date End Date Status Ferrous Sulfate 325 (65 Fe) MG 1 tablet Orally daily Active Cyanocobalamin 1000 MCG 1 tablet Orally Once a day Active QUEtiapine Fumarate 400 MG 1 tablet at bedtime Orally Once a day 450 mg total dose Active Albuterol Sulfate HFA 108 (90 Base) MCG/ACT 1 puff as needed Inhalation every 4 hrs Active Pantoprazole Sodium 40 MG 1 tablet Orall y twice a day Active SEROquel 50 MG 1 tablet in am and at bedtime Orally twice a day 06/22/2023 Active traZODone HCl 50 MG 1 tablet at bedtime as needed Orally Once a day 06/22/2023 Active metFORMIN HCl 500 MG 1 tablet with a meal Orally twice a day 06/22/2023 Active Lisinopril 5 MG 1 tablet Orally Once a day Active Rivaroxaban 20 MG 1 tablet with food Orally Once a day Active Tamsulosin HCl 0.4 MG 1 capsule Orally Once a day Active Atorvastatin Calcium 80 MG 1 tablet Orally Once a day for 30 days Active Lacosamide 100 MG 1 tablet Orally Twice a day Active Yelm Carbonate 600 MG 1 capsule Orall y twice a day for 30 days Active Vistaril 25 MG 1 capsule at bedtime as needed Orally Once a day q 6 hrs prn Active Clopidogrel Bisulfate 75 MG 1 tablet Orally Once a day for 30 days Active diphenhydrAMINE HCl 25 MG 1 capsule at bedtime as needed Orally Once a day Active Benztropine Mesylate 1 MG 1 tablet [...] Once a day for 30 days Active Lidocaine 5 % 1 patch remove after 12 hours Externally Once a day Active Carbidopa-Levodopa 25-100 MG 1 tablet Orally three times a day for 30 days Active Famotidine 20 MG 1 tablet at bedtime Orally Once a day 06/22/2023 Active Sucralfate 1 GM 1 tablet on an empty stomach Orally Twice a day Active Problems Problem Type SNOMED Code ICD Code Onset Dates Problem Status W/U Status Risk Notes Problem Hypothyroidism (98554858) Hypothyroidism, unspecified (E03.9) Active confirmed Problem Hyperlipidemia (45143952) Hyperlipidemia, unspecified (E78.5) Active confirmed Problem Hypothyroidism (02849517) Hypothyroidism (acquired) (E03.9) Active confirmed Problem Atherosclerotic heart disease of [place] coronary artery without angina pectoris (873145761383216) CVD (cardiovascular disease) (I25.10) Active confirmed Problem Solitary nodule of lung (732323755) Lung nodule (R91.1) Active confirmed Problem Type II diabetes mellitus without complication (745502611) Controlled type 2 diabetes mellitus without complication, unspecified whether snf insulin use (E11.9) Active confirmed Vital Signs Heart Rate 80 /min 11/08/2023 Temperature 98.2 degrees Fahrenheit 06/21/2023 Respiratory Rate 18 /min 11/08/2023 Oximetry 96 % 06/21/2023 Blood pressure diastolic 70 mm Hg 11/08/2023 Blood pressure systolic 120 mm Hg 11/08/2023 Encounters Encounter Location Date Provider Diagnosis [facility] [place] [address] [place] [address] 06/21/2023 ARNOLD KUMAR CVD (cardiovascular disease) I25.10 ; Controlled type 2 diabetes mellitus without complication, unspecified whether snf insulin use E11.9 ; Hypothyroidism (acquired) E03.9 ; Hyperlipidemia, unspecified E78.5 ; Depression, unspecified F32.A and Parkinson's disease without dyskinesia, without mention of fluctuations G20.A1 [address] [address] 07/12/2023 ARNOLD KUMAR Controlled type 2 diabetes mellitus without complication, unspecified whether snf insulin use E11.9 ; Headache, unspecified R51.9 ; Hypothyroidism (acquired) E03.9 and Hyperlipidemia, unspecified E78.[address] [address] 08/29/2023 ARNOLD KUMAR Controlled type 2 diabetes mellitus without complication, unspecified whether snf insulin use E11.9 ; Hypothyroidism (acquired) E03.9 and Hyperlipidemia, unspecified E78.[address] [address] 10/03/2023 ARNOLD KUMAR Controlled type 2 diabetes mellitus without complication, unspecified whether buttermaker continuous churn insulin use E11.9 ; Hypothyroidism (acquired) E03.9 ; Hyperlipidemia, unspecified E78.5 and Lung nodule R91.1 [facility] [address] [place], [place] [id number] 11/08/2023 ARNOLD KUMAR Controlled type 2 diabetes mellitus without complication, unspecified whether snf insulin use E11.9 ; Hypothyroidism (acquired) E03.9 ; Hyperlipidemia, unspecified E78.5 and Lung nodule R91.1 Assessments Encounter Date Diagnosis (ICD Code) Assessment Notes Treatment Notes Treatment Clinical Notes Section Notes 06/21/2023 CVD (cardiovascular disease) (ICD-10 - I25.10) Continue on current medications, follow up with cardiology as scheduled. 06/21/2023 Controlled type 2 diabetes mellitus without complication, unspecified whether buttermaker continuous churn insulin use (ICD-10 - E11.9) Continue on Metformin, diabetic diet, will order glucometer. 07/12/2023 Headache, unspecified (ICD-10 - R51.9) Ordered Naproxen as needed. 07/12/2023 Controlled type 2 diabetes mellitus without complication, unspecified whether buttermaker continuous churn insulin use (ICD-10 - E11.9) BP 118/77 per patient report. Continue on current medications. 08/29/2023 Hypothyroidism (acquired) (ICD-10 - E03.9) Continue on Levothyroxine, monitor TSH. 08/29/2023 Controlled type 2 diabetes mellitus without complication, unspecified whether snf insulin use (ICD-10 - E11.9) Continue on Metformin, diabetic diet. 10/03/2023 Hypothyroidism (acquired) (ICD-10 - E03.9) Continue on Levothyroxine, monitor TSH. 10/03/2023 Controlled type 2 diabetes mellitus without complication, unspecified whether snf insulin use (ICD-10 - E11.9) Continue on current medications. 11/08/2023 Controlled type 2 diabetes mellitus without complication, unspecified whether buttermaker continuous churn insulin use (ICD-10 - E11.9) Continue on Metformin, diabetic diet. 07/12/2023 Hypothyroidism (acquired) (ICD-10 - E03.9) Continue on Levothyroxine, monitor TSH. 11/08/2023 Hypothyroidism (acquired) (ICD-10 - E03.9) Continue on Levothyroxine, monitor TSH. 10/03/2023 Hyperlipidemia, unspecified (ICD-10 - E78.5) Continue on statin. 08/29/2023 Hyperlipidemia, unspecified (ICD-10 - E78.5) Continue on statin, low cholesterol diet, monitor lipids. 06/21/2023 Hypothyroidism (acquired) (ICD-10 - E03.9) Continue on Levothyroxine, monitor TSH. 06/21/2023 Hyperlipidemia, unspecified (ICD-10 - E78.5) Continue on Atorvastatin, monitor lipids. 07/12/2023 Hyperlipidemia, unspecified (ICD-10 - E78.5) Continue on statin. 10/03/2023 Lung nodule (ICD-10 - R91.1) Pulmonary consult. 11/08/2023 Hyperlipidemia, unspecified (ICD-10 - E78.5) Continue on Atorvastatin, low cholesterol diet. 11/08/2023 Lung nodule (ICD-10 - R91.1) Pulmonary consult. 06/21/2023 Depression, unspecified (ICD-10 - F32.A) Continue on current medications, f/u with psychiatrist. 06/21/2023 Parkinson's disease without dyskinesia, without mention of fluctuations (ICD-10 - G20.A1) Continue on Carbidopa-Levod opa. 11/08/2023 Other Ordered labs, cardiology consult. Plan Of Treatment No Information Insurance Providers Payer Name Payer Address Payer Phone Subscriber Number Group Number Insured Name Patient Relationship to Insured Coverage Start Date Coverage End Date [facility] [address] [place] [address] [id number] Charlie Rios Self - patient is the insured [employer] [address] [place] [address] [phone] [id number] Charlie Rios Self - patient is the insured Medical (General) History Medical History History ICD Code Hypothyroidism, depression, hyperlipidem ia, Parkinson's Unstable angina, stented cor onary artery, CAD, tremors of nervous system, neuroleptic induced parkinsonism, diabetes type 2, chest pain, type 2 diabetes with neurologic complication, hypertension, hyperlipidemia Surgical History Surgery Date(Month/Year) cardiac catheterization 06/19/23 Cholecystectomy in 2008, blo od pressure has been gastric bypass 06/15/20082008 Hospitalization History Reason Date(Month/Year) [facility] for chest pain, CAD, the patient undergone cardiac catheterization. 06/17/23
--- OUTSIDE RECORDS SUMMARY | 2024-05-28 13:56 | XMS_ITS | Encounter Summary ---
Author Organization [facility] Address [address] [place] [address] Care Team Providers Care Fireproof Door Assembler Name Role Phone Physician, No Pcp Primary Care Provider Unavaila ble Reason for Visit * Reason Comments Chest Pain Shortness of Breath Encounter Details Date Type Department Care Team (Late st Contact Info) Description 05/09/2024 7:29 PM EST - 05/09/2024 9:24 PM EST Emergency [facility] Emergency [address] [place] [id number] Ray Hernandez, DO [address] [place] [address] Other chest pain (Primary Dx) Discharge Disposition: Home or Self Care Social History Tobacco Use Types Packs/Day Years [...] Sign Reading Time Taken Comments Blood Pressure 121/78 05/09/2024 7:38 PM EST Pulse 105 05/09/2024 7:38 PM EST Temperature 37 ??C (98.6 ??F) 05/09/2024 7:38 PM EST Respiratory Rate 18 05/09/2024 7:38 PM EST Oxygen Saturation 98% 05/09/2024 7:38 PM EST Inhaled Oxygen Concentration - - Weight 118 kg (260 lb) 05/09/2024 7:38 PM EST Height 177.8 cm (5' 10 ) 05/09/2024 7:38 PM EST Body Mass Index 37.31 05/09/2024 7:38 PM EST documented in this encounter Functional Status * Are you deaf or do you have serious difficulty hearing? Answer Date of Assessment Author No 05/09/2024 7:49 PM EST Ewa Lu RN * Are you blind or do you have serious difficulty seeing, even when wearing glasses? Answer Date of Assessment Author No 05/09/2024 7:49 PM EST Ewa Lu RN * Do you have serious difficulty walking or climbing stairs? Answer Date of Assessment Author No 05/09/2024 7:49 PM Ewa Alvarez RN * Do you have serious difficulty dressing or bathing? Answer Date of Assessment Author No 05/09/2024 7:49 PM Ewa Alvarez RN * Because of a physical, mental, or emotional condition, do you have serious difficulty doing errandsalone such as visiting the doctor? Answer Date of Assessment Author No 05/09/2024 7:49 PM Ewa Alvarez RN documented as of this encounter Mental Status * Because of a physical, mental, or emotional condition, do you have serious difficulty concentrating, remembering, or making decisions? (5 years old or older) Answer Entry Date Author No 05/09/2024 7:49 PM Ewa Alvarez RN documented in this encounter Discharge Instructions * Discharge Instructions* Ray Hernandez DO - 05/09/2024 8:45 PM EST You were seen and evaluated for chest pain today. Your electrocardiogram and blood work are normal and reassuring. You have had multiple visits to multiple hospitals across the country for this chestpain with no cardiac findings. Please follow-up with your PCP or paper core machine operator as needed. * Attachments The following attachments cannot be sent through Care Everywhere. * Chest Pain (Pashto) documented in this encounter Medications at Time of Discharge albuterol HFA (PROAIR HFA ; PROVENTIL HFA ; VENTOLIN HFA) 90 mcg/actuation inhaler Inhale 2 puffs by mouth Every 4 hours as needed for shortness of breath. 11/18/2014 5 amLODIPine (NORVASC) 5 mg tablet Take 1 tablet (5 mg total) by mouth 1 (one) time each day. 01/21/2021 5 ARIPiprazole (ABILIFY) 5 mg tablet Take 1 tablet (5 mg total) by mouth 1 (one) time each day. 06/19/2017 atorvastatin (LIPITOR) 40 mg tablet Take 1 tablet (40 mg total) by mouth daily. 01/09/2023 atorvastatin (LIPITOR) 80 mg tablet Take 80 mg by mouth at bedtime. Breo Ellipta 100-25 mcg/dose inhaler Inhale 1 puff by mouth 1 (one) time each day. 02/25/2024 buPROPion XL (WELLBUTRIN XL) 300 mg 24 hr tablet Take 300 mg by mouth 1 (one) time each day. Do not crush, chew, or split. cyanocobalamin (VITAMIN B-12) 1,000 mcg tablet Take 1 tablet (1,000 mcg total) by mouth daily. 02/14/2022 cyclobenzaprine (FLEXERIL) 10 mg tablet Take 1 tablet (10 mg total) by mouth 3 times daily as needed. 03/19/2024 famotidine (PEPCID) 20 mg tablet Take 1 tablet (20 mg total) by mouth 1 (one) time each day. 03/05/2024 5 ferrous gluconate (FERGON) 324 mg (37.5 mg iron) tablet Take 1 tablet (324 mg total) by mouth 1 (one) time each day. 03/11/2024 furosemide (LASIX) 40 mg tablet Take 0.5 tablets (20 mg total) by mouth daily. 01/22/2024 levothyroxine (SYNTHROID, LEVOTHROID) 25 mcg tablet Take 1 tablet (25 mcg total) by mouth daily. 04/26/2022 levothyroxine sodium (TIROSINT) 25 mcg capsule Take 25 mcg by mouth 1 (one) time each day. lidocaine 4 % patch Apply 1 patch topically daily. 01/23/2024 lisinopriL (PRINIVIL,ZESTRI L) 5 mg tablet Take 1 tablet (5 mg total) by mouth 1 (one) time each day. lisinopriL (PRINIVIL,ZESTRI L) 5 mg tablet Take 1 tablet (5 mg total) by mouth daily. 02/04/2024 metFORMIN (GLUCOPHAGE) 500 mg tablet Take 500 mg by mouth 2 (two) times a day with meals. metFORMIN XR (GLUCOPHAGE-XR) 500 mg 24 hr tablet Take 1 tablet (500 mg total) by mouth daily. 01/22/2024 metoprolol tartrate (LOPRESSOR) 25 mg tablet [...] mouth 1 (one) time each day. 01/22/2024 primidone (MYSOLINE) 50 mg tablet Take 1 tablet (50 mg total) by mouth daily. 01/16/2023 QUEtiapine (SEROquel) 100 mg tablet Take 1 tablet (100 mg total) by mouth 2 times daily. 03/12/2023 QUEtiapine (SEROquel) 25 mg tablet Take 1 tablet (25 mg total) by mouth 2 times daily. 01/20/2021 QUEtiapine (SEROquel) 400 mg tablet Take 1 tablet (400 mg total) by mouth at bedtime. 04/26/2022 rivaroxaban (Xarelto) 20 mg tablet Take 1 tablet (20 mg total) by mouth 1 (one) time each day with dinner. 03/07/2023 sertraline (ZOLOFT) 100 mg tablet Take 1 tablet (100 mg total) by mouth daily. 01/09/2023 tamsulosin (FLOMAX) 0.4 mg 24 hr capsule Take 1 capsule (0.4 mg total) by mouth daily. 01/21/2021 tiotropium (Spiriva Respimat) 1.25 mcg/actuation inhalation spray Inhale 2 puffs by mouth daily. 02/25/2024 traZODone (DESYREL) 100 mg tablet Take 200 mg by mouth at bedtime. Last filled per [facility] 09/29 clopidogreL (PLAVIX) 75 mg tablet Take 1 tablet (75 mg total) by mouth 1 (one) time each day. gabapentin (NEURONTIN) 300 mg capsule Take 300 mg by mouth 2 (two) times a day. Last filled per [facility] 09/29 5 rivaroxaban (XARELTO) 20 mg tablet Take 1 tablet (20 mg total) by mouth 1 (one) time each day with dinner. Take with food. Last filled per [facility] 09/29 5 documented as of this encounter Discharge Disposition Disposition Code Departure Means Destination Comment s Home or Self Care Pt aaox4, respirations are even and unlabored on room air, VSS. Pt speaking in complete, clear full sentences. Pt skin warm dry and normal in appearance for age and ethnicity. Pt provided DC instructions and reasons to return to ED. Pt verbalized understanding, offers no questions/concerns. Pt ambulates with steady, independent gait. Report given to [facility] and [facility]. Md willis documented in this encounter Progress Notes * Shoshana Martinez RN - 05/09/2024 9:24 PM EST Attempted to call report to [facility]. Phone rang x2mins. * Ewa Lu RN - 05/09/2024 7:29 PM EST BIBA FROM [facility]. PT HAS BEEN C/O CHEST PAIN/SOB X 4 HOURS. PER EMS LEFT SIDED CHEST PAIN RADIATING DOWN THIS LEFT ARM. PT IS ON A SECTION 21 TO RETURN TO [facility] AFTER D/C. PT REPORTS TO THIS RN 10/10 CHEST PAIN RADIATING DOWN HIS LEFT AND RIGHT ARMS, JAW PAIN AND NECK PAIN. PT REPORTS A HX OF STENTS. DENIES SI/HI TO THIS RN. * Ray Hernandez, DO - 05/09/2024 7:25 PM EST Emergency Medicine Note Patient Name: Charlie Rios Initial Evaluation: 05/09/2024 : 1975 Patient's PCP: No Pcp Physician Emergency Physician: Ray Hernandez DO History of Present Illness Chief Complaint: Chief Complaint Patient presents with ??? Chest Pain ??? Shortness of Breath HPI: This patient brought from local psychiatric facility for complaints of chest pain. Patient has extensive history of multiple visits across multiple states in the past several years for chest pain without significant findings. Had left heart catheterization mid March with mild stenosis with recommendation by cardiology for medical treatment. Patient recently seen at other hospital about 2 days ago with no significant findings. Also notable throughout multiple presentations toemergency department that the patient states he has an extensive allergy list and the only thing that treats his chest pain is morphine. ROS: I have performed a ROS with the pertinent positives and negatives documented in the history ofpresent illness. Previous History Past Medical History: Diagnosis Date ??? A-fib (CMS/HCC) ??? Bipolar disorder (CMS/HCC) ??? Diabetes mellitus (CMS/HCC) ??? HLD (hyperlipidemia) ??? Hypertension ??? Morbid obesity (CMS/HCC) ??? Myocardial infarction (CMS/HCC) x4 ??? DIMITRIS (obstructive sleep apnea) ??? PTSD (post-traumatic stress disorder) ??? Pulmonary embolism (CMS/HCC) 2019 ??? Schizophrenia (CMS/HCC) Past Surgical History: Procedure Laterality Date ??? CORONARY ANGIOPLASTY WITH STENT PLACEMENT 1999 ??? GASTRIC BYPASS Social History Tobacco Use ??? Smoking status: Never ??? Smokeless tobacco: Never Family History Problem Relation Name Age of Onset ??? Coronary artery disease Mother is allergic to amoxicillin, aspirin, ibuprofen, nitroglycerin, and tylenol [acetaminophen]. No current facility-administered medications on file prior to encounter. Current Outpatient Medications on File Prior to Encounter Medication Sig Dispense Refill ??? atorvastatin (LIPITOR) 80 mg tablet Take 80 mg by mouth at bedtime. ??? buPROPion XL (WELLBUTRIN XL) 300 mg 24 hr tablet Take 300 mg by mouth 1 (one) time each day. Donot crush, chew, or split. ??? clopidogreL (PLAVIX) 75 mg tablet Take 75 mg by mouth 1 (one) time each day. ??? gabapentin (NEURONTIN) 300 mg capsule Take 300 mg by mouth 2 (two) times a day. [facility] ??? levothyroxine sodium (TIROSINT) 25 mcg capsule Take 25 mcg by mouth 1 (one) time each day. ??? lisinopriL (PRINIVIL,ZESTRIL) 5 mg tablet Take 5 mg by mouth 1 (one) time each day. ??? metFORMIN (GLUCOPHAGE) 500 mg tablet Take 500 mg by mouth 2 (two) times a day with meals. ??? metoprolol succinate (TOPROL-XL) 25 mg 24 hr tablet Take 0.5 tablets (12.5 mg total) by mouth 1(one) time each day. Do not crush or chew. 15 each 0 ??? pantoprazole (PROTONIX) 40 mg EC tablet Take 40 mg by mouth 1 (one) time each day before breakfast. Do not crush, chew, or split. ??? rivaroxaban (XARELTO) 20 mg tablet Take 20 mg by mouth 1 (one) time each day with dinner. Take with food. [facility] ??? traZODone (DESYREL) 100 mg tablet Take 200 mg by mouth at bedtime. [facility] 09[facility] Physical Exam ED Triage Vitals [05/09/24 1938] Temp Heart Rate Resp BP 37 ??C (98.6 ??F) 105 18 121/78 SpO2 Temp Source Heart Rate Source Patient Position 98 % Oral Monitor Sitting BP Location FiO2 (%) Left arm -- Focused physical exam shows the patient send, position in [facility] in no apparent distress. Lung sounds are clear, twelve-lead EKG which ordered personally reviewed shows sinus rhythm without ST segment elevation or depression, the rest of exam is unremarkable. Results Labs Reviewed CBC WITH AUTO DIFFERENTIAL - Abnormal Result Value WBC 8.0 RBC 4.30 (*) Hemoglobin 10.3 (*) Hematocrit 33.6 (*) MCV 78.7 (*) MCH 24.1 (*) MCHC 30.7 (*) RDW 15.9 (*) Platelets 365 MPV 9.6 NRBC 0.0 NRBC Absolute 0.00 Neutrophils Relative 64.1 Lymphocytes Relative 21.2 Monocytes Relative 12.2 Eosinophils Relative 1.3 Basophils Relative 0.4 Immature Granulocytes Relative 0.8 Neutrophils Absolute 5.12 Lymphocytes Absolute 1.69 Monocytes Absolute 0.97 Eosinophils Absolute 0.10 Basophils Absolute 0.03 Immature Granulocytes Absolute 0.06 (*) CBC AND DIFFERENTIAL Narrative: The following orders were created for panel order CBC and differential. Procedure Abnormality Status --------- ------ CBC auto differential[[id number]] Abnormal Final result Please view results for these tests on the individual orders. TROPONIN I HIGH SENSITIVITY TROPONIN I HIGH SENSITIVITY COMPREHENSIVE METABOLIC PANEL LIPASE MAGNESIUM B-TYPE NATRIURETIC PEPTIDE Abnormal Labs Reviewed CBC WITH AUTO DIFFERENTIAL - Abnormal; Notable for the following components: Result Value RBC 4.30 (*) Hemoglobin 10.3 (*) Hematocrit 33.6 (*) MCV 78.7 (*) MCH 24.1 (*) MCHC 30.7 (*) RDW 15.9 (*) Immature Granulocytes Absolute 0.06 (*) All other components within normal limits XR Chest 2 Views (Results Pending) I have discussed the incidental/abnormal imaging and/or lab abnormalities with the patient and haveinstructed them the need for further evaluation and workup with their primary care doctor. I have provided the patient with a paper copy of the abnormality. The laboratory results, imaging results and other diagnostic exam results were reviewed in the EMR. EKG Interpretation Critical Care Time None Medical Decision Making Medications - No data to display ED Course as of 05/09/242134May 09, 20242041 Informed by nursing that the patient is agitated, is not cooperative with second blood draw orrepeat EKG, demanding morphine for his pain. Start the patient back to facility as soon as first troponin is normal, EKG is unchanged, given the patient's multiple visits in the last several days with unremarkable workup okay the patient will be discharged back to his facility. [TK] ED Course User Index [TK] Ray Hernandez, DO Clinical Impressions as of 05/09/242134 Other chest pain Differential includes anxiety, psychosis, noncardiac chest pain, ACS, NSTEMI, malingering, drug-seeking behavior, secondary gain This patient has had multiple visits for chest pain multiple hospitals across multiple states in the past 3 years. Reassuring left heart catheterization mid March, will draw screening labs including troponins, if they are negative, I feel reassured that the patient is not having a cardiac event and will discharge back to psychiatric facility. Procedures Procedures Diagnosis No diagnosis found. Disposition Data Unavailable ED Prescriptions None Physician Attestation Ray Hernandez DO 05/09/242023 Ray Hernandez DO 05/09/242134 documented in this encounter Plan of Treatment Not on file documented as of this encounter Procedures Procedure Name Priority Date/Time Associated Diagnosis Comments TROPONIN I HIGH SENSITIVITY STAT 05/09/2024 8:44 PM EST ECG 12-LEAD STAT 05/09/2024 7:56 PM EST TROPONIN I HIGH SENSITIVITY STAT 05/09/2024 7:47 PM EST CBC WITH AUTO DIFFERENTIAL STAT 05/09/2024 7:47 PM EST CBC AND DIFFERENTIAL STAT 05/09/2024 7:47 PM EST B-TYPE NATRIURETIC PEPTIDE STAT 05/09/2024 7:47 PM EST MAGNESIUM STAT 05/09/2024 7:47 PM EST LIPASE STAT 05/09/2024 7:47 PM EST COMPREHENSIVE METABOLIC PANEL STAT 05/09/2024 7:47 PM EST ECG OUTSIDE 05/09/2024 documented in this encounter Results * Troponin I high sensitivity (05/09/2024 8:44 PM EST) [facility] High Sensitivity Troponin I 3 <=79 ng/L LAB CHEMISTRY METHOD 05/09/2024 9:[address] [facility] Blood Venous blood specimen / Unknown Venipuncture / Unknown 05/09/2024 8:44 PM EST 05/09/2024 8:[address] [facility] - 05/09/2024 9:20 PM EST High levels of biotin in samples may falsely decrease hsTroponin values. ??Use caution when interpreting hsTroponin results in patients taking biotin who exhibit renal impairment (eGFR <60) or in patients taking more than 20 mg/day of biotin. Eduardodiya Diatawnya Hernandez DO LAB BLOOD ORDERABLES Final Resu lt Performing Organization Address City/[facility]/ZIP Co de Phone Number [facility] [address] [place] [address], [place] [phone] * ECG 12 lead (05/09/2024 7:56 PM EST) Ventricular Rate ECG 108 BPM GEMUSE Atrial Rate 108 BPM GEMUSE P-R Interval 168 ms GEMUSE QRS Duration 92 ms GEMUSE Q-T Interval 336 ms GEMUSE QTc 450 ms GEMUSE P Wave Alpine 37 degrees GEMUSE R Alpine 19 degrees GEMUSE T Alpine 36 degrees GEMUSE ECG Interpretation Sinus tachycardia Nonspecific ST abnormality Abnormal ECG When compared with ECG of 30-APR-2024 20:44, No significant change was found Confirmed by JENAE RIOS ([id number]) on 05/11/2024 2:21:37 PM GEMUSE 05/09/2024 7:56 PM EST 05/11/2024 2:21 PM EST Ray Carnivaltawnya Mary DO ECG ORDERABLES Final Result Performing Organization Address City/[facility]/ZIP Co de Phone Number GEMUSE * (ABNORMAL) CBC auto differential (05/09/2024 7:47 PM EST) WBC 8.0 4.8 - 10.8 K/[facility] LAB HEMETOLOGY METHOD 05/09/2024 7:[address] [facility] RBC 4.30(L) 4.50 - 5.50 M/mcL LAB HEMETOLOGY METHOD 05/09/2024 7:57 PM [facility] Hemoglobin 10.3(L) 13.5 - 17.5 g/dL LAB HEMETOLOGY METHOD 05/09/2024 7:57 PM [facility] Hematocrit 33.6(L) 42.0 - 54.0 % LAB HEMETOLOGY METHOD 05/09/2024 7:57 PM [facility] MCV 78.7(L) 79.0 - 98.0 FL LAB HEMETOLOGY METHOD 05/09/2024 7:57 PM [facility] MCH 24.1(L) 27.0 - 32.0 pcg LAB HEMETOLOGY METHOD 05/09/2024 7:57 PM [facility] MCHC 30.7(L) 32.0 - 37.0 g/dL LAB HEMETOLOGY METHOD 05/09/2024 7:57 PM [facility] RDW 15.9(H) 11.0 - 15.0 % LAB HEMETOLOGY METHOD 05/09/2024 7:57 PM [facility] Platelets 365 130 - 400 K/mcL LAB HEMETOLOGY METHOD 05/09/2024 7:57 PM [facility] MPV 9.6 7.0 - 11.0 FL LAB HEMETOLOGY METHOD 05/09/2024 7:57 PM [facility] NRBC 0.0 <1.0 % LAB HEMETOLOGY METHOD 05/09/2024 7:57 PM [facility] NRBC Absolute 0.00 <0.10 K/mcL LAB HEMETOLOGY METHOD 05/09/2024 7:57 PM [facility] Neutrophils Relative 64.1 % LAB HEMETOLOGY METHOD 05/09/2024 7:57 PM [facility] Lymphocytes Relative 21.2 % LAB HEMETOLOGY METHOD 05/09/2024 7:57 PM [facility] Monocytes Relative 12.2 % LAB HEMETOLOGY METHOD 05/09/2024 7:57 PM [facility] Eosinophils Relative 1.3 % LAB HEMETOLOGY METHOD 05/09/2024 7:57 PM [facility] Basophils Relative 0.4 % LAB HEMETOLOGY METHOD 05/09/2024 7:57 PM [facility] Immature Granulocytes Relative 0.8 % LAB HEMETOLOGY METHOD 05/09/2024 7:57 PM [facility] Neutrophils Absolute 5.12 1.50 - 7.00 K/mcL LAB HEMETOLOGY METHOD 05/09/2024 7:57 PM [facility] Lymphocytes Absolute 1.69 1.00 - 5.00 K/mcL LAB HEMETOLOGY METHOD 05/09/2024 7:57 PM [facility] Monocytes Absolute 0.97 0.20 - 1.00 K/mcL LAB HEMETOLOGY METHOD 05/09/2024 7:57 PM [facility] Eosinophils Absolute 0.10 0.00 - 0.50 K/mcL LAB HEMETOLOGY METHOD 05/09/2024 7:57 PM [facility] Basophils Absolute 0.03 0.00 - 0.20 K/mcL LAB HEMETOLOGY METHOD 05/09/2024 7:57 PM [facility] Immature Granulocytes Absolute 0.06(H) 0.00 - 0.03 K/mcL LAB HEMETOLOGY METHOD 05/09/2024 7:57 PM [facility] Blood Venous blood specimen / Unknown Venipuncture / Unknown 05/09/2024 7:47 PM EST 05/09/2024 7:51 PM EST us Ray Hernandez DO LAB BLOOD ORDERABLES Final Resu lt Performing Organization Address [facility]/ZIP Co de Phone Number [facility] [address] [place] [address], * B-type natriuretic peptide (05/09/2024 7:47 PM EST) BNP 21 <=100 pcg/mL LAB CHEMISTRY METHOD 05/09/2024 8:[address] [facility] Blood Venous blood specimen / Unknown Venipuncture / Unknown 05/09/2024 7:47 PM EST 05/09/2024 7:51 PM EST Ray Hernandez DO LAB BLOOD ORDERABLES Final Resu lt Performing Organization Address [facility] Co de Phone Number [facility] [address] [place] [address], * Magnesium (05/09/2024 7:47 PM EST) Pathologist [facility] Magnesium 1.9 1.9 - 2.6 mg/dL LAB CHEMISTRY METHOD 05/09/2024 8:[address] [facility] Blood Venous blood specimen / Unknown Venipuncture / Unknown 05/09/2024 7:47 PM EST 05/09/2024 7:51 PM EST Eduardodiya [place] PACK LAB BLOOD ORDERABLES Final Resu lt Performing Organization Address City/[facility]/ZIP Co de Phone Number [facility] [address] [place] [address], [place] [phone] * Lipase (05/09/2024 7:47 PM EST) Lipase 35 13 - 75 unit/L LAB CHEMISTRY METHOD 05/09/2024 8:[address] [facility] Blood Venous blood specimen / Unknown Venipuncture / Unknown 05/09/2024 7:47 PM EST 05/09/2024 7:51 PM EST us Ray Hernandez DO LAB BLOOD ORDERABLES Final Resu lt [facility] [address] [place] [address], [place] [phone] * (ABNORMAL) Comprehensive metabolic panel (05/09/2024 7:47 PM EST) Sodium 138 133 - 145 mmol/L LAB CHEMISTRY METHOD 05/09/2024 8:30 PM [facility] Potassium 4.1 3.5 - 5.5 mmol/L LAB CHEMISTRY METHOD 05/09/2024 8:30 PM [facility] Chloride 111(H) 96 - 110 mmol/L LAB CHEMISTRY METHOD 05/09/2024 8:30 PM [facility] CO2 21 21 - 32 mmol/L LAB CHEMISTRY METHOD 05/09/2024 8:30 PM [facility] Anion Gap 6 3 - 11 LAB CHEMISTRY METHOD 05/09/2024 8:30 PM [facility] Glucose 95 70 - 100 mg/dL LAB CHEMISTRY METHOD 05/09/2024 8:30 PM [facility] BUN 22 5 - 25 mg/dL LAB CHEMISTRY METHOD 05/09/2024 8:30 PM [facility] Creatinine 0.76 0.70 - 1.30 mg/dL LAB CHEMISTRY METHOD 05/09/2024 8:30 PM [facility] eGFR 112 >=60 mL/min/1. 73m2 LAB CHEMISTRY METHOD 05/09/2024 8:30 PM [facility] Comment:Calculation based on the??Chronic Kidney Disease Epidemiology Collaboration (CKD-EPI) equation refit??without adjustment for race. BUN/Creatinine Ratio 28.9 LAB CHEMISTRY METHOD 05/09/2024 8:30 PM [facility] Calcium 8.9 8.5 - 10.5 mg/dL LAB CHEMISTRY METHOD 05/09/2024 8:30 PM [facility] AST (SGOT) 9(L) 10 - 42 unit/L LAB CHEMISTRY METHOD 05/09/2024 8:30 PM [facility] ALT (SGPT) 9(L) 10 - 60 unit/L LAB CHEMISTRY METHOD 05/09/2024 8:30 PM [facility] Alkaline Phosphatase 92 42 - 121 unit/L LAB CHEMISTRY METHOD 05/09/2024 8:30 PM [facility] Total Protein 7.0 6.0 - 8.0 g/dL LAB CHEMISTRY METHOD 05/09/2024 8:30 PM [facility] Albumin 3.6 3.2 - 5.0 g/dL LAB CHEMISTRY METHOD 05/09/2024 8:30 PM [facility] Total Bilirubin 0.2 0.0 - 1.4 mg/dL LAB CHEMISTRY METHOD 05/09/2024 8:[address] [facility] Blood Venous blood specimen / Unknown Venipuncture / Unknown 05/09/2024 7:47 PM EST 05/09/2024 7:51 PM EST us Ray Hernandez DO LAB BLOOD ORDERABLES Final Resu lt [facility] [address] [place] [address], * Troponin I high sensitivity (05/09/2024 7:47 PM EST) High Sensitivity Troponin I 3 <=79 ng/L LAB CHEMISTRY METHOD 05/09/2024 8:[address] [facility] Blood Venous blood specimen / Unknown Venipuncture / Unknown 05/09/2024 7:47 PM EST 05/09/2024 7:[address] [facility] - 05/09/2024 8:23 PM EST High levels of biotin in samples may falsely decrease hsTroponin values. ??Use caution when interpreting hsTroponin results in patients taking biotin who exhibit renal impairment (eGFR <60) or in patients taking more than 20 mg/day of biotin. us Ray Hernandez DO LAB BLOOD ORDERABLES Final Resu lt [facility] [address] [place] [address], * ECG-Outside (05/09/2024) us Provider Onbase MD ECG ORDERABLES Final Result documented in this encounter Visit Diagnoses Diagnosis Other chest pain- Primary documented in this encounter Orders EKG Orders Without Results Count Last Ordered D ate First Ordered Date ECG 12-LEAD 1 05/09/2024 Discharge Count Last Ordered Date First Orde red Date DISCHARGE PATIENT 1 05/09/2024 documented in this encounter Care Teams Fireproof Door Assembler Relationship Specialty Start Date End Date Physician, No Pcp PCP - General 01/25/24 documented as of this encounter
--- OUTSIDE RECORDS SUMMARY | 2024-05-28 13:56 | XMS_ITS | Encounter Summary ---
Author Organization [facility] Address [address] [place] [address] Care Team Providers Care Lusterer Name Role Phone Physician, No Pcp Primary Care Provider Unavaila ble Reason for Visit * Reason Comments Chest Pain Pt at bus terminal o [facility] coming via EMS. Pt was seated on the bus when he had sudden onset of chest pain pt described it as heavy and as if someone was sitting on his chest. Pt has hx of [place] and states this feels similar. Encounter Details Date Type Department Care Team (Late st Contact Info) Description 04/30/2024 8:18 PM EST - 05/01/2024 3:15 AM EST Emergency [facility] [address] [place] [phone] Chest pain, unspecified type (Primary Dx) Discharge [...] Sign Reading Time Taken Comments Blood Pressure 148/91 05/01/2024 12:57 AM EST Pulse 98 05/01/2024 12:57 AM EST Temperature 36.8 ??C (98.2 ??F) 05/01/2024 12:[address] Respiratory Rate 18 05/01/2024 12:57 AM EST Oxygen Saturation 100% 05/01/2024 12:57 AM EST Inhaled Oxygen Concentration - - Weight 118 kg (260 lb) 04/30/2024 9:23 PM EST Height 177.8 cm (5' 10 ) 04/30/2024 9:23 PM EST Body Mass Index 37.31 04/30/2024 9:23 PM EST documented in this encounter Discharge Instructions * Discharge Instructions* JUNIOR Ro - 05/01/2024 2:43 AM EST Your lab work, including heart enzymes, EKG and chest x-ray today did not show any concerning findings Follow up with your print buyer as discussed Follow up with your primary provider. Call tomorrow for appointment. Return to Emergency Department if symptoms worsen, don't improve, or any other concern. Get well soon! Thank you for coming to the [facility] Emergency Department today. Our entire team works together to provide you with the best care possible. Examination and treatment you received in the emergency department has been rendered on an EMERGENCY basis only. It is not intended to be a substitute for or an effort to provide complete medical care. You should follow-up with your primary care provider. Please report to your physician any new or remaining problems, because it is impossible to recognize and treat all elements of injury or illness in a single emergency department visit. In the event that you're unable to obtain a followup appointment in a timely fashion, OR you are not getting any better, OR you are getting worse, OR you develop any symptoms of concern, please return here immediately for further evaluation. The emergency department is open 24 hours a day, 7 days aweek. Your discharge report is based on information that was available when you were in the emergency department. * Attachments The following attachments cannot be sent through Care Everywhere. * Chest Pain (Citizen Of [place]) documented in this encounter Medications at Time [...] (20 mg total) by mouth daily. 01/22/2024 5 levothyroxine (SYNTHROID, LEVOTHROID) 25 mcg tablet Take 1 tablet (25 mcg total) by mouth daily. 04/26/2022 5 levothyroxine sodium (TIROSINT) 25 mcg capsule Take 25 mcg by mouth 1 (one) time each day. lidocaine 4 % patch Apply 1 patch topically daily. 01/23/2024 lisinopriL (PRINIVIL,ZESTRI L) 5 mg tablet Take 1 tablet (5 mg total) by mouth 1 (one) time each day. lisinopriL (PRINIVIL,ZESTRI L) 5 mg tablet Take 1 tablet (5 mg total) by mouth daily. 02/04/2024 5 metFORMIN (GLUCOPHAGE) 500 mg tablet Take 500 [...] at bedtime. Last filled per [facility] 09/29 clopidogreL (PLAVIX) 75 mg tablet Take 1 tablet (75 mg total) by mouth 1 (one) time each day. 5 gabapentin (NEURONTIN) 300 mg capsule Take 300 mg by mouth 2 (two) times a day. Last filled per [facility] 09/29 5 rivaroxaban (XARELTO) 20 mg tablet Take 1 tablet (20 mg total) by mouth 1 (one) time each day with dinner. Take with food. Last filled per [facility] 09/29 5 documented as of this encounter Discharge Disposition Disposition Code Departure Means Destination Comment s Home or Self Care documented in this encounter Progress Notes * JUNIOR Ro - 04/30/2024 8:11 PM EST Emergency Medicine Note Patient Name: Charlie Rios Initial Evaluation: 04/30/2024 : 1975 Patient's PCP: No Pcp Physician Emergency Physician: JUNIOR Ro History of Present Illness Chief Complaint: Chief Complaint Patient presents with Chest Pain Pt at bus [facility] via EMS. Pt was seated on the bus when he had sudden onset of chest pain pt described it as heavy and as if someone was sitting on his chest. Pt has hx of [place] and states this feels similar. HPI: This is a 48-year-old male with a past medical history of CAD, previous [place] with stent placement x 2, multiple NSTEMI, HTN, HLD, DM, previous history of PE, A-fib on Xarelto and Plavix, bipolar disorder, schizophrenia presenting for evaluation of approximately 1 hour midsternal chest pressure which she describes as an elephant sitting on his chest. He states it radiates to his left shoulder, down his left arm, left side of his neck and his jaw. States it feels worse than all of the mild infarctions he has had in the past. He denies any associated palpitations or shortness of breath. Patient reports he has anaphylactic allergies to both aspirin and nitroglycerin, states he is also unable to take Tylenol for similar reasons. States that morphine is the only thing that works for his pain. ROS: I have performed a ROS with the pertinent positives and negatives documented in the history ofpresent illness. Previous History Past Medical History: Diagnosis Date A-fib ([facility]) Bipolar disorder ([facility]) Diabetes mellitus ([facility]) HLD (hyperlipidemia) Hypertension Morbid obesity ([facility]) Myocardial infarction ([facility]) x4 DIMITRIS (obstructive sleep apnea) PTSD (post-traumatic stress disorder) Pulmonary embolism ([facility]) 2020 Schizophrenia ([facility]) Past Surgical History: Procedure Laterality Date CORONARY [...] Prior to Encounter Medication Sig Dispense Refill atorvastatin (LIPITOR) 80 mg tablet Take 80 mg by mouth at bedtime. buPROPion XL (WELLBUTRIN XL) 300 mg 24 hr tablet Take 300 mg by mouth 1 (one) time each day. Do notcrush, chew, or split. clopidogreL (PLAVIX) 75 mg tablet Take 75 mg by mouth 1 (one) time each day. gabapentin (NEURONTIN) 300 mg capsule Take 300 mg by mouth 2 (two) times a day. Last filled per [facility]/29 levothyroxine sodium (TIROSINT) 25 mcg capsule Take 25 mcg by mouth 1 (one) time each day. lisinopriL (PRINIVIL,ZESTRIL) 5 mg tablet Take 5 mg by mouth 1 (one) time each day. metFORMIN (GLUCOPHAGE) 500 mg tablet Take 500 mg by mouth 2 (two) times a day with meals. metoprolol succinate (TOPROL-XL) 25 mg 24 hr tablet Take 0.5 tablets (12.5 mg total) by mouth 1 (one) time each day. Do not crush or chew. 15 each 0 pantoprazole (PROTONIX) 40 mg EC tablet Take 40 mg by mouth 1 (one) time each day before breakfast.Do not crush, chew, or split. rivaroxaban (XARELTO) 20 mg tablet Take 20 mg by mouth 1 (one) time each day with dinner. Take withfood. Last filled per [facility] 09/29 traZODone (DESYREL) 100 mg tablet Take 200 mg by mouth at bedtime. Last filled per [facility] 09/29 Physical Exam ED Triage Vitals [04/30/242042] Temp Heart Rate Resp BP -- 90 18 (!) 153/80 SpO2 Temp src Heart Rate Source Patient Position 98 % -- Monitor Lying BP Location FiO2 (%) Right arm -- General: Well-appearing, well nourished, in no acute distress HEENT: PERRL, EOMI, external ears and nose appear unremarkable, airway is patent Neck: Supple, full range of motion Chest: Clear to auscultation; no evidence of respiratory distress Circulatory: RRR, extremities well perfused Abdomen: Non-distended, Non-Tender Extremities: Normal ROM, No edema Skin: Warm and dry Neuro: Alert and oriented, no focal deficits Results Labs Reviewed COMPREHENSIVE METABOLIC PANEL - Abnormal Result Value Sodium 136 Potassium 3.9 Chloride 108 CO2 23 Anion Gap 5 Glucose 150 (*) BUN 16 Creatinine 0.68 (*) eGFR 115 BUN/Creatinine Ratio 23.5 Calcium 8.2 (*) AST (SGOT) 11 ALT (SGPT) 10 Alkaline Phosphatase 82 Total Protein 7.0 Albumin 3.5 Total Bilirubin 0.2 LIPASE - Abnormal Lipase 95 (*) CBC WITH AUTO DIFFERENTIAL - Abnormal WBC 5.8 RBC 4.20 (*) Hemoglobin 10.2 (*) Hematocrit 33.1 (*) MCV 79.6 MCH 24.5 (*) MCHC 30.8 (*) RDW 15.4 (*) Platelets 391 MPV 9.8 NRBC 0.0 NRBC Absolute 0.00 Neutrophils Relative 55.7 Lymphocytes Relative 32.4 Monocytes Relative 9.1 Eosinophils Relative 1.6 Basophils Relative 0.5 Immature Granulocytes Relative 0.7 Neutrophils Absolute 3.23 Lymphocytes Absolute 1.88 Monocytes Absolute 0.53 Eosinophils Absolute 0.09 Basophils Absolute 0.03 Immature Granulocytes Absolute 0.04 (*) MAGNESIUM - Normal Magnesium 2.0 PROTHROMBIN TIME WITH INR - Normal Protime 12.0 INR 1.0 B-TYPE NATRIURETIC PEPTIDE - Normal BNP 15 TROPONIN I HIGH SENSITIVITY - Normal High Sensitivity Troponin I 3 Narrative: High levels of biotin in samples may falsely decrease hsTroponin values. Use caution when interpreting hsTroponin results in patients taking biotin who exhibit renal impairment (eGFR <60) or in patients taking more than 20 mg/day of biotin. TROPONIN I HIGH SENSITIVITY - Normal High Sensitivity Troponin I 4 Narrative: High levels of biotin in samples may falsely decrease hsTroponin values. Use caution when interpreting hsTroponin results in patients taking biotin who exhibit renal impairment (eGFR <60) or in patients taking more than 20 mg/day of biotin. CBC AND DIFFERENTIAL Narrative: The following orders were created for panel order CBC and differential. Procedure Abnormality Status --------- ------ CBC auto differential[[id number]] Abnormal Final result Please view results for these tests on the individual orders. Abnormal Labs Reviewed COMPREHENSIVE METABOLIC PANEL - Abnormal; Notable for the following components: Result Value Glucose 150 (*) Creatinine 0.68 (*) Calcium 8.2 (*) All other components within normal limits LIPASE - Abnormal; Notable for the following components: Lipase 95 (*) All other components within normal limits CBC WITH AUTO DIFFERENTIAL - Abnormal; Notable for the following components: RBC 4.20 (*) Hemoglobin 10.2 (*) Hematocrit 33.1 (*) MCH 24.5 (*) MCHC 30.8 (*) RDW 15.4 (*) Immature Granulocytes Absolute 0.04 (*) All other components within normal limits XR Chest 2 Views ED Interpretation No infiltrate or effusion I have discussed the incidental/abnormal imaging and/or lab abnormalities with the patient and haveinstructed them the need for further evaluation and workup with their primary care doctor. I have provided the patient with a paper copy of the abnormality. The laboratory results, imaging results and other diagnostic exam results were reviewed in the EMR. EKG Interpretation Critical Care Time None ? Medical Decision Making Medications sodium chloride 0.9 % flush 10 mL (has no administration in time range) morphine injection 4 mg (4 mg intravenous Given 04/30/242126) morphine injection 4 mg (4 mg intravenous Given 05/01/24 0049) ondansetron (PF) (ZOFRAN) injection 4 mg (4 mg intravenous Given 05/01/24 0051) ED Course as of 05/01/24 0244 Wed Apr 30, 2024 2153 Initial labs reviewed and reassuring, no leukocytosis, H&H 10.2/33.1. Initial high-sensitivity troponin is 3. BNP of 15. Lipase minimally elevated to 95. CMP is unremarkable. [LQ] [facility] May 01, 2024 0236 Second troponin of 4, there is no delta. Patient continues to report chest pain despite 2 doses of morphine. He has a documented history of malingering and has been frequently visiting hospitalsaround the entire [place]. After extensive review of patients chart with ED attending, Dr. Bennett, in conjunction with his workup in the emergency department today, it is felt that an acute coronary cause of his chest pain has been ruled out and that he can be discharged to follow-up with his outpatient print buyer. [LQ] ED Course User Index [LQ] JUNIOR Ro Clinical Impressions as of 05/01/24243 Chest pain, unspecified type Differential to include ACS, unstable angina, low clinical suspicion for PE, atypical chest pain, malingering 04/30/2024 8:57 PM patient seen and evaluated, vitals reviewed, he is afebrile, not tachycardic, blood pressure 153/80, EKG on arrival to emergency department shows normal sinus rhythm at 91 bpm without any significant ST or T wave changes suggestive of ischemia. Per review of epic chart he has frequent emergency department visits with a similar presentation at multiple different locations. He didhave an nuclear medicine myocardial perfusion scan on 02/24/2024 at [facility] with an impression normal myocardial perfusion. Left ventricular ejection fraction of 59%. He then subsequently had a cardiac catheterization performed on 03/25/2024 -which in summary reveals mild to mode rate CAD with mid RCA in-stent 30% and more distal 50% stenosis His primary print buyer is at [facility] in [place]. Last saw her 2 months ago. Procedures Procedures Diagnosis 1. Chest pain, unspecified type Disposition Discharge ED Prescriptions None Physician Attestation JUNIOR Ro 04/30/242102 JUNIOR Ro 05/01/24243 Cosigned by Ray Hernandez DO at 05/05/2024 4:40 PM EST documented in this encounter Plan of Treatment Not on file documented as of this encounter Procedures Procedure Name Priority Date/Time Associated Diagnosis Comments TROPONIN I HIGH SENSITIVITY STAT 05/01/2024 12:48 AM EST XR CHEST 2 VIEWS STAT 04/30/2024 11:4 2 PM EST TROPONIN I HIGH SENSITIVITY STAT 04/30/2024 8:50 PM EST CBC WITH AUTO DIFFERENTIAL STAT 04/30/2024 8:50 PM EST PROTHROMBIN TIME WITH INR STAT 04/30/2024 8:50 PM EST CBC AND DIFFERENTIAL STAT 04/30/2024 8:50 PM EST B-TYPE NATRIURETIC PEPTIDE STAT 04/30/2024 8:50 PM EST MAGNESIUM STAT 04/30/2024 8:50 PM EST LIPASE STAT 04/30/2024 8:50 PM EST COMPREHENSIVE METABOLIC PANEL STAT 04/30/2024 8:50 PM EST ECG 12-LEAD STAT 04/30/2024 8:44 PM EST ECG OUTSIDE 04/30/2024 ECG ANNOTATED 04/30/2024 documented in this encounter Results * Troponin I high sensitivity (05/01/2024 12:48 AM EST) High Sensitivity Troponin I 4 <=79 ng/L LAB CHEMISTRY METHOD 05/01/2024 2:16 AM EST [facility] Blood Venous blood specimen / Unknown Venipuncture / Unknown 05/01/2024 12:48 AM EST 05/01/2024 1:50 AM EST Narrative [facility] - 05/01/2024 2:16 AM EST High levels of biotin in samples may falsely decrease hsTroponin values. ??Use caution when interpreting hsTroponin results in patients taking biotin who exhibit renal impairment (eGFR <60) or in patients taking more than 20 mg/day of biotin. us H[facility] LAB BLOOD ORDERABLES Final Resu lt [facility] [address] [place] [address], * XR Chest 2 Views (04/30/2024 11:42 PM EST) Anatomical Region Laterality Modality Body Radiographic Janna ging 05/01/2024 8:05 AM EST Impressions 05/01/2024 8:06 AM EST Hypoventilatory exam with no acute findings. -------- FINAL REPORT -------- Dictated By: Khurram Garcia Dictated Date: 05/01/2024 08:05 ET Assigned Physician: Khurram Garcia Reviewed and Electronically Signed By: Khurram Garcia Signed Date: 05/01/2024 08:06 ET Workstation ID: [id number] Transcribed By: Self Edit Transcribed Date: 05/01/2024 08:05 ET Narrative 05/01/2024 8:06 AM EST PROCEDURE: PA and lateral radiographs of the chest. HISTORY: CHEST PAIN. COMPARISON: 04/30/2024. FINDINGS: Hypoventilatory inspiratory effort with mild atelectasis at the bases. ??Pleural spaces are clear. ??Cardiomediastinal contours are within normal limits. ??No significant bony findings. Procedure Note Khurram Garcia MD - 05/01/2024 PROCEDURE: PA and lateral radiographs of the chest. HISTORY: CHEST PAIN. COMPARISON: 04/30/2024. FINDINGS: Hypoventilatory inspiratory effort with mild atelectasis at thebases. Pleural spaces are clear. Cardiomediastinal contours are withinnormal limits. No significant bony findings. IMPRESSION: Hypoventilatory exam with no acute findings. -------- FINAL REPORT -------- Dictated By: Khurram Garcia Dictated Date: 05/01/2024 08:05 ET Assigned Physician: Khurram Garcia Reviewed and Electronically Signed By: Khurram Garcia Signed Date: 05/01/2024 08:06 ET Workstation ID: [id number] Transcribed By: Self Edit Transcribed Date: 05/01/2024 08:05 ET us [facility] IMG XR PROCEDURES Final Result * (ABNORMAL) CBC auto differential (04/30/2024 8:50 PM EST) WBC 5.8 4.8 - 10.8 K/mcL LAB HEMETOLOGY METHOD 04/30/2024 9:16 PM [facility] RBC 4.20(L) 4.50 - 5.50 M/mcL LAB HEMETOLOGY METHOD 04/30/2024 9:16 PM [facility] Hemoglobin 10.2(L) 13.5 - 17.5 g/dL LAB HEMETOLOGY METHOD 04/30/2024 9:16 PM [facility] Hematocrit 33.1(L) 42.0 - 54.0 % LAB HEMETOLOGY METHOD 04/30/2024 9:16 PM [facility] MCV 79.6 79.0 - 98.0 FL LAB HEMETOLOGY METHOD 04/30/2024 9:16 PM [facility] MCH 24.5(L) 27.0 - 32.0 pcg LAB HEMETOLOGY METHOD 04/30/2024 9:16 PM [facility] MCHC 30.8(L) 32.0 - 37.0 g/dL LAB HEMETOLOGY METHOD 04/30/2024 9:16 PM [facility] RDW 15.4(H) 11.0 - 15.0 % LAB HEMETOLOGY METHOD 04/30/2024 9:16 PM [facility] Platelets 391 130 - 400 K/mcL LAB HEMETOLOGY METHOD 04/30/2024 9:16 PM [facility] MPV 9.8 7.0 - 11.0 FL LAB HEMETOLOGY METHOD 04/30/2024 9:16 PM [facility] NRBC 0.0 <1.0 % LAB HEMETOLOGY METHOD 04/30/2024 9:16 PM [facility] NRBC Absolute 0.00 <0.10 K/mcL LAB HEMETOLOGY METHOD 04/30/2024 9:16 PM [facility] Neutrophils Relative 55.7 % LAB HEMETOLOGY METHOD 04/30/2024 9:16 PM [facility] Lymphocytes Relative 32.4 % LAB HEMETOLOGY METHOD 04/30/2024 9:16 PM [facility] Monocytes Relative 9.1 % LAB HEMETOLOGY METHOD 04/30/2024 9:16 PM [facility] Eosinophils Relative 1.6 % LAB HEMETOLOGY METHOD 04/30/2024 9:16 PM [facility] Basophils Relative 0.5 % LAB HEMETOLOGY METHOD 04/30/2024 9:16 PM [facility] Immature Granulocytes Relative 0.7 % LAB HEMETOLOGY METHOD 04/30/2024 9:16 PM [facility] Neutrophils Absolute 3.23 1.50 - 7.00 K/mcL LAB HEMETOLOGY METHOD 04/30/2024 9:16 PM [facility] Lymphocytes Absolute 1.88 1.00 - 5.00 K/mcL LAB HEMETOLOGY METHOD 04/30/2024 9:16 PM [facility] Monocytes Absolute 0.53 0.20 - 1.00 K/mcL LAB HEMETOLOGY METHOD 04/30/2024 9:16 PM [facility] Eosinophils Absolute 0.09 0.00 - 0.50 K/mcL LAB HEMETOLOGY METHOD 04/30/2024 9:16 PM [facility] Basophils Absolute 0.03 0.00 - 0.20 K/mcL LAB HEMETOLOGY METHOD 04/30/2024 9:16 PM [facility] Immature Granulocytes Absolute 0.04(H) 0.00 - 0.03 K/mcL LAB HEMETOLOGY METHOD 04/30/2024 9:16 PM EST [facility] Blood Venous blood specimen / Unknown Venipuncture / Unknown 04/30/2024 8:50 PM EST 04/30/2024 9:08 PM EST [facility] LAB BLOOD ORDERABLES Final Resu lt Performing Organization Address [facility] Co de Phone Number [facility] [address] [place] [address], [place] [phone] * Troponin I high sensitivity (04/30/2024 8:50 PM EST) [facility] High Sensitivity Troponin I 3 <=79 ng/L LAB CHEMISTRY METHOD 04/30/2024 9:40 PM EST [facility] Blood Venous blood specimen / Unknown Venipuncture / Unknown 04/30/2024 8:50 PM EST 04/30/2024 9:08 PM EST Narrative [facility] - 04/30/2024 9:40 PM EST High levels of biotin in samples may falsely decrease hsTroponin values. ??Use caution when interpreting hsTroponin results in patients taking biotin who exhibit renal impairment (eGFR <60) or in patients taking more than 20 mg/day of biotin. us H[facility] LAB BLOOD ORDERABLES Final Resu lt Performing Organization Address City/[facility] de Phone Number [facility] [address] [place] [address], [place] [phone] * B-type natriuretic peptide (04/30/2024 8:50 PM EST) [facility] BNP 15 <=100 pcg/mL LAB CHEMISTRY METHOD 04/30/2024 9:48 PM EST [facility] Blood Venous blood specimen / Unknown Venipuncture / Unknown 04/30/2024 8:50 PM EST 04/30/2024 9:09 PM EST us [facility] LAB BLOOD ORDERABLES Final Resu lt Performing Organization Address City/[facility]/ZIP Co de Phone Number [facility] [address] [place] [address], [place] [phone] * (ABNORMAL) Lipase (04/30/2024 8:50 PM EST) [facility] Lipase 95(H) 13 - 75 unit/L LAB CHEMISTRY METHOD 04/30/2024 9:40 PM EST [facility] Blood Venous blood specimen / Unknown Venipuncture / Unknown 04/30/2024 8:50 PM EST 04/30/2024 9:08 PM EST us [facility] LAB BLOOD ORDERABLES Final Resu lt Performing Organization Address [facility]/ZIP Co de Phone Number [facility] [address] [place] [address], [place] [phone] * Prothrombin time with INR (04/30/2024 8:50 PM EST) [facility] Protime 12.0 10.6 - 13.9 sec LAB COAGULATION METHOD 04/30/2024 9:21 PM EST [facility] INR 1.0 LAB COAGULATION METHOD 04/30/2024 9:21 PM EST [facility] Blood Venous blood specimen / Unknown 04/30/2024 8:50 PM EST 04/30/2024 9:08 PM EST us [facility] LAB BLOOD ORDERABLES Final Resu lt Performing Organization Address City/[facility]/ZIP Co de Phone Number [facility] [address] [place] [address], [place] [phone] * Magnesium (04/30/2024 8:50 PM EST) [facility] Magnesium 2.0 1.9 - 2.6 mg/dL LAB CHEMISTRY METHOD 04/30/2024 9:40 PM [facility] Blood Venous blood specimen / Unknown Venipuncture / Unknown 04/30/2024 8:50 PM EST 04/30/2024 9:08 PM EST us H[facility] LAB BLOOD ORDERABLES Final Resu lt [facility] [address] [place] [address], [place] [phone] * (ABNORMAL) Comprehensive metabolic panel (04/30/2024 8:50 PM EST) [facility] Sodium 136 133 - 145 mmol/L LAB CHEMISTRY METHOD 04/30/2024 9:40 PM [facility] Potassium 3.9 3.5 - 5.5 mmol/L LAB CHEMISTRY METHOD 04/30/2024 9:40 PM [facility] Chloride 108 96 - 110 mmol/L LAB CHEMISTRY METHOD 04/30/2024 9:40 PM [facility] CO2 23 21 - 32 mmol/L LAB CHEMISTRY METHOD 04/30/2024 9:40 PM [facility] Anion Gap 5 3 - 11 LAB CHEMISTRY METHOD 04/30/2024 9:40 PM [facility] Glucose 150(H) 70 - 100 mg/dL LAB CHEMISTRY METHOD 04/30/2024 9:40 PM [facility] BUN 16 5 - 25 mg/dL LAB CHEMISTRY METHOD 04/30/2024 9:40 PM [facility] Creatinine 0.68(L) 0.70 - 1.30 mg/dL LAB CHEMISTRY METHOD 04/30/2024 9:40 PM [facility] eGFR 115 >=60 mL/min/1. 73m2 LAB CHEMISTRY METHOD 04/30/2024 9:40 PM EST [facility] Comment:Calculation based on the??Chronic Kidney Disease Epidemiology Collaboration (CKD-EPI) equation refit??without adjustment for race. BUN/Creatinine Ratio 23.5 LAB CHEMISTRY METHOD 04/30/2024 9:40 PM [facility] Calcium 8.2(L) 8.5 - 10.5 mg/dL LAB CHEMISTRY METHOD 04/30/2024 9:40 PM [facility] AST (SGOT) 11 10 - 42 unit/L LAB CHEMISTRY METHOD 04/30/2024 9:40 PM [facility] ALT (SGPT) 10 10 - 60 unit/L LAB CHEMISTRY METHOD 04/30/2024 9:40 PM [facility] Alkaline Phosphatase 82 42 - 121 unit/L LAB CHEMISTRY METHOD 04/30/2024 9:40 PM [facility] Total Protein 7.0 6.0 - 8.0 g/dL LAB CHEMISTRY METHOD 04/30/2024 9:40 PM [facility] Albumin 3.5 3.2 - 5.0 g/dL LAB CHEMISTRY METHOD 04/30/2024 9:40 PM [facility] Total Bilirubin 0.2 0.0 - 1.4 mg/dL LAB CHEMISTRY METHOD 04/30/2024 9:40 PM [facility] Blood Venous blood specimen / Unknown Venipuncture / Unknown 04/30/2024 8:50 PM EST 04/30/2024 9:08 PM EST us Hina PACHECO LAB BLOOD ORDERABLES Final Resu lt [facility] [address] [place] [address], * ECG 12 lead (04/30/2024 8:44 PM EST) Ventricular Rate ECG 91 BPM GEMUSE Atrial Rate 91 BPM GEMUSE P-R Interval 184 ms GEMUSE QRS Duration 96 ms GEMUSE Q-T Interval 362 ms GEMUSE QTc 445 ms GEMUSE P Wave [place] 43 degrees GEMUSE R [place] 16 degrees GEMUSE T [place] 35 degrees GEMUSE ECG Interpretation Normal sinus rhythm Normal ECG When compared with ECG of 10-JAN-2022 21:49, No significant change was found Confirmed by Skye LALA JOHN ([id number]) on 05/01/2024 10:56:26 AM GEMUSE 04/30/2024 8:44 PM EST 05/01/2024 10:56 AM EST us Hina PACHECO ECG ORDERABLES Final Result GEMUSE * ECG-Outside (04/30/2024) Provider Onbase MD ECG ORDERABLES Final Result * ECG-Annotated (04/30/2024) Provider Onbase MD ECG ORDERABLES Final Result documented in this encounter Visit Diagnoses Diagnosis Chest pain, unspecified type- Primary documented in this encounter Administered Medications Inactive Administered Medications - up to 3 most recent administrations Medication Order MAR Action Action Date Dose Rate Site morphine injection 4 mg 4 mg, intravenous, Once, On Sun04/30/24 at 2057, For 1 dose Given 04/30/2024 9:27 PM EST 4 mg morphine injection 4 mg 4 mg, intravenous, Once, On Liliana 05/01/24 at 0025, For 1 dose Given 05/01/2024 12:49 AM EST 4 mg ondansetron (PF) (ZOFRAN) injection 4 mg 4 mg, intravenous, Once, On Liliana 05/01/24 at 0025, For 1 dose Given 05/01/2024 12:51 AM EST 4 mg sodium chloride 0.9 % flush 10 mL 10 mL, intravenous, As needed, line care, Starting on Sun04/30/24 at 2020 documented in this encounter Active and Recently Administered Medications Times are shown in EST. Scheduled Medication Order 04/29/2024 04/30/2024 05/01/2024 morphine injection 4 mg (COMPLETED) 4 mg, intravenous, Once, On Sun04/30/24 at 2057, For 1 dose 2126 (Given - Provider: Sherry Boateng, [place]) morphine injection 4 mg (COMPLETED) 4 mg, intravenous, Once, On Liliana 05/01/24 at 0025, For 1 dose 0049 (Given - Provid er: Jaida Syed RN) ondansetron (PF) (ZOFRAN) injection 4 mg (COMPLETED) 4 mg, intravenous, Once, On Liliana 05/01/24 at 0025, For 1 dose 0051 (Given - Provid er: Jaida Syed RN) PRN Medication Order 04/29/2024 04/30/2024 05/01/2024 sodium chloride 0.9 % flush 10 mL(Linked Group 1) 10 mL, intravenous, As needed, line care, Starting on Sun04/30/24 at 2019 Linked Groups Order Group 1: Insert peripheral IV (COMPLETED) STAT, Once, On Sun04/30/24 at 2020, For 1 occurrence And Saline lock IV (COMPLETED) Routine, Once, On Sun04/30/24 at 2020, For 1 occurrence And sodium chloride 0.9 % flush 10 mLJump to med 10 mL, intravenous, As needed, line care, Starting on Sun04/30/24 at 2019 documented in this encounter Orders Medications Ordered That Yuan ht Not Have Been Administered Count Last Ordered Date First Ordered Date sodium chloride 0.9 % flush 10 mL 1 025 IV Count Last Ordered Date First Orde red Date INSERT PERIPHERAL IV 04/30/2024 SALINE LOCK IV 04/30/2024 documented in this encounter Care Teams Lusterer Relationship Specialty Start Date End Date Physician, No Pcp PCP - General 01/25/24 documented as of this encounter
[2024-05-28] MEDS: Rivaroxaban 20 MG TABLET PO (17:15)
[2024-05-28] MEDS: metFORMIN HCl 500 MG TABLET PO (17:16)
--- NOTE | 2024-05-28 18:07 | PC.ADMIT ---
Enoc is a 48 year old man who was admitted to at 1340 from [facility] on a CV for chest pain and SI. He provides an address for [facility] in [place] but when staff at [facility] contacted them, they reported that he has not lived there for a long time. It appears that he may be unhoused and moving between hospitals. He states that he was on vacation in [place] (which is supported by many prescriptions in external RX history from a physician in [place]) and experienced chest pain when returning. He was seen and discharged from [facility] and then was seen at [facility], where he disclosed SI with thoughts to jump from a bridge. He has a significant cardiac history and was medically cleared. He has DM II and DIMITRIS with orders for BID POC and CPAP. He does not smoke cigarettes or use any drugs and the tox screen was positive only for opiates. He denies SI/HI/AVH stating that he never experiences HI/AVH and feels safe here. When asked if he is in pain he states that he declines to respond due to the consequences of disclosing his pain. He agrees to alert staff if he begins to feel suicidal or has concerns of a cardiac event. He appears anxious and is able to advocate for his needs. Skin check unremarkable. He is placed on 15 minute safety checks.
[2024-05-28 20:00] VITALS: BP 130/74; PULSE 91; TEMP 36.4; O2SAT 97
[2024-05-28] MEDS: Gabapentin 300 MG CAPSULE PO (21:30)
[2024-05-28] MEDS: Melatonin 3 MG TABLET PO (21:30)
[2024-05-28] MEDS: QUEtiapine Fumarate 400 MG TABLET PO (21:31)
[2024-05-28] MEDS: Atorvastatin Calcium 80 MG TABLET PO (21:31)
[2024-05-28 21:49] LABS: Glucose, Whole Blood 172 mg/dL (60-115)
[2024-05-29] MEDS: Levothyroxine Sodium 25 MCG TABLET PO (06:53)
[2024-05-29] MEDS: Pantoprazole Sodium 20 MG TABLET.DR 40 MG PO (06:53)
[2024-05-29 08:00] VITALS: BP 121/59; PULSE 76; TEMP 36.8; O2SAT 97
[2024-05-29 08:07] LABS: Glucose, Whole Blood 116 mg/dL (60-115)
[2024-05-29] MEDS: buPROPion HCl XL 300 MG TAB.ER.24H PO (09:42)
[2024-05-29] MEDS: Sertraline HCL 100 MG TABLET PO (09:42)
[2024-05-29] MEDS: metFORMIN HCl 500 MG TABLET PO ×2 (09:42→17:03)
[2024-05-29 09:43] VITALS: BP 121/59
[2024-05-29] MEDS: lisinopriL 5 MG TABLET PO (09:43)
[2024-05-29] MEDS: Metoprolol Tartrate 12.5 MG HALFTAB PO (09:43)
[2024-05-29] MEDS: Clopidogrel Bisulfate 75 MG TABLET PO (09:43)
[2024-05-29] MEDS: ARIPiprazole 5 MG TABLET PO (09:44)
[2024-05-29] MEDS: Gabapentin 300 MG CAPSULE PO ×2 (09:44→21:06)
[2024-05-29] MEDS: Lidocaine 4 % Patch ADH..PATCH 1 PATCH TRANSDERMA (09:44)
[2024-05-29 11:04] LABS: Estimated Average Glucose 140 mg/dL; Hemoglobin A1C 136.2892 umol/L; Hemoglobin A1c % 6.5 % (<6.0); Total Hemoglobin (HGBA1C) 2837.7047 umol/L
[2024-05-29 11:09] LABS: Creatinine Clr Calc Pharmacy 177.2; Estimated Glomerular Filt Rate > 60
[2024-05-29 11:16] LABS: Cholesterol 114 mg/dL (<200); HDL Cholesterol 31 mg/dL (>40); LDL Cholesterol Calculated 38 mg/dL (<100); Magnesium 1.9 mg/dL (1.6-2.6); Triglycerides 225 mg/dL (<150)
--- NOTE | 2024-05-29 11:24 | MHC.CLN ---
NUTRITION PROVIDER REQUESTING CRYSTAL LIGHT FOR PATIENT AT MEALS AND IN BETWEEN MEALS. DISCUSSED WITH PATIENT OVEN TENDER. KITCHEN WILL MIX CRYSTAL LIGHT WITH WATER AND PROVIDE ON EACH MEAL TRAY IN APPROPRIATE CUP/MUG. ONLY PRE MIXED PRODUCT WILL BE PROVIDED TO PATIENT.
[2024-05-29 11:33] LABS: Free T4 (Free Thyroxine) 0.87 ng/dL (0.71-1.85); Thyroid Stimulating Hormone 0.99 uIU/mL (0.32-4.0)
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
[2024-05-29 11:47] LABS: Folate 11.8 ng/mL (> or = 4.0); Vitamin B12 738 pg/mL (200-900)
[2024-05-29 12:26] LABS: Glucose, Whole Blood 88 mg/dL (60-115)
[2024-05-29] MEDS: Rivaroxaban 20 MG TABLET PO (17:03)
[2024-05-29 20:00] VITALS: BP 138/78; PULSE 81; TEMP 36.1; O2SAT 98
[2024-05-29] MEDS: Atorvastatin Calcium 80 MG TABLET PO (21:05)
[2024-05-29] MEDS: lamoTRIgine 25 MG TABLET PO (21:06)
[2024-05-29] MEDS: QUEtiapine Fumarate 100 MG TABLET 500 MG PO (21:06)
[2024-05-29] MEDS: Melatonin 3 MG TABLET PO (21:06)
[2024-05-29 21:25] LABS: Glucose, Whole Blood 74 mg/dL (60-115)
[2024-05-29 23:16] VITALS: PULSE 82; RESP 16; O2SAT 95
--- NOTE | 2024-05-30 | ECG_ITS ---
Test Reason : 01/16 CHEST PAIN Blood Pressure : */* mmHG Vent. Rate : 81 BPM Atrial Rate : 81 BPM P-R Int : 184 ms QRS Dur : 100 ms QT Int : 366 ms P-R-T Axes : 46 37 50 degrees QTcB Int : 425 ms Normal sinus rhythm Normal ECG When compared with ECG of 29-Apr-2024 14:38, No significant change was found Referred By: Coretta Moreira Electronically Signed By: NORM BOWERS
[2024-05-30] MEDS: Levothyroxine Sodium 25 MCG TABLET PO (06:34)
[2024-05-30] MEDS: Pantoprazole Sodium 20 MG TABLET.DR 40 MG PO (06:34)
--- NOTE | 2024-05-30 07:25 | P.CONIM_ITS ---
History of Present Illness Data of Consult Service Date: 05/30/24 Primary Care Provider: Unknown Physician HPI Reason for consult: Medical consult A 45 years old male with PMH of CAD, HLD, Hx PE, DMII, PTSD, Depression, Bipolar among others. On Xarelto for hx of PEs? He is presently admitted to inpatient Psych unit due to depression and suicidal thoughts. He denies No chest pain, palpitations, SOB, nausea, vomiting, diarrhea or urinary symptoms. Takes his medications regularly. He reports chest pain earlier today on the left side radiating to his arm with sob and sweating lasted less than 10 minutes and resolved while sitting. Hospitalist team asked to evaluate for medical problems. Review of Systems 2 Review of Systems: No fever, chills or weakness No chest pain, palpitation No shortness of breath or coughing No abdominal pain, nausea or vomiting No urinary symptoms No any rash or wounds PMFSH Medical History Bipolar disorder Mood disorder PTSD (post-traumatic stress disorder) Depression History of pulmonary embolism BPH (benign prostatic hyperplasia) Diabetes Obesity Hypothyroid HLD (hyperlipidemia) CAD (coronary artery disease) Surgical History History of coronary artery stent placement Social History Household Members: None Housing: Homeless Do you presently have visiting nurse or other home services: No Patient Tobacco Use Status: Never used Tobacco Smoked in Last 30 Days: No e-Cigarette/Vaping Use: Never Used Patient Interested in Nicotine Replacement: No Second Hand Smoke Exposure: No Use of substances other than those prescribed or required for medical reasons: No Currently Displaying Signs/Symptoms of Drug Intoxication Withdrawal: No Any prior treatment program specific to substance use: No Have you been hit, kicked, punched, or otherwise hurt by someone within the past year? If so, by whom?: No Do you feel safe in your current relationship?: Yes Is there a partner from a previous relationship who is making you feel unsafe now?: No Are you made to feel afraid or neglected: No Advance Directives: No Advance Directives Information Provided: No Do you have thoughts of harming others: Constant Do you have a plan to hurt others: No Plan Recently lost weight without trying: No How much weight loss: Not applicable Eating poorly because of decreased appetite: No Nutrition screen score: 0 Nutrition Risks: No Nutritional Risk Poor oral hygiene: No service: No Current occupational status: unemployed Sexual orientation: Straight/Heterosexual Meds Allergies Allergy/AdvReac Type Severity Reaction Status Date / Time acetaminophen [From TYLENOL] Allergy Severe ANAPHYLAXIS Verified 12/10/20 20:07 aspirin [ASA] Allergy Severe ANAPHYLAXIS Verified 12/10/20 20:07 nitroglycerin [NITROGLYCERIN] Allergy Severe ANAPHYLAXIS Verified 12/10/20 20:07 amoxicillin [AMOXICILLIN] Allergy Mild RASH Verified 12/10/20 20:07 fish derived [fish] Allergy Anaphylaxis Verified 04/22/24 11:04 ibuprofen Allergy Anaphylaxis Verified 04/21/24 16:34 Poultry Allergy Anaphylaxis Verified 04/22/24 11:04 Active Medications: Current Medications Al Hydroxide/Mg Hydroxide (Magnesium Hydrox/Alum Hydrox 30 Ml Oral.Susp) 30 ml PO Q6H PRN PRN Reason: Heartburn/Nausea Aripiprazole (Aripiprazole 10 Mg Tablet) 10 mg PO DAILY [facility] Atorvastatin Calcium (Atorvastatin Calcium 80 Mg Tablet) 80 mg PO BEDTIME [facility] Last Admin: 05/29/24 21:05 Dose: 80 mg Bupropion HCl (Bupropion Hcl Xl 300 Mg Tab.Er.24h) 300 mg PO DAILY [facility] Last Admin: 05/29/24 09:42 Dose: 300 mg Clopidogrel Bisulfate (Clopidogrel Bisulfate 75 Mg Tablet) 75 mg PO DAILY [facility] Last Admin: 05/29/24 09:43 Dose: 75 mg Gabapentin (Gabapentin 300 Mg Capsule) 300 mg PO BID [facility] Last Admin: 05/29/24 21:06 Dose: 300 mg Hydroxyzine HCl (Hydroxyzine Hcl 25 Mg Tablet) 25 mg PO Q6H PRN PRN Reason: mild anxiety Lamotrigine (Lamotrigine 25 Mg Tablet) 25 mg PO BEDTIME [facility] Last Admin: 05/29/24 21:06 Dose: 25 mg Levothyroxine Sodium (Levothyroxine Sodium 25 Mcg Tablet) 25 mcg PO DAILY@0600 [facility] Last Admin: 05/30/24 06:34 Dose: 25 mcg Lidocaine (Lidocaine 4 % Patch Adh..Patch) 1 patch TRANSDERMA DAILY [facility]; Protocol Last Admin: 05/29/24 09:44 Dose: 1 patch Lisinopril (Lisinopril 5 Mg Tablet) 5 mg PO DAILY [facility]; Protocol Last Admin: 05/29/24 09:43 Dose: 5 mg Magnesium Hydroxide (Milk Of Magnesia 30 Ml Oral.Susp) 30 ml PO DAILY PRN PRN Reason: Constipation Melatonin (Melatonin 3 Mg Tablet) 3 mg PO BEDTIME [facility] Last Admin: 05/29/24 21:06 Dose: 3 mg Metformin HCl (Metformin Hcl 500 Mg Tablet) 500 mg PO 0800,1700 [facility] Last Admin: 05/29/24 17:03 Dose: 500 mg Metoprolol Tartrate (Metoprolol Tartrate 12.5 Mg Halftab) 12.5 mg PO DAILY [facility]; Protocol Last Admin: 05/29/24 09:43 Dose: 12.5 mg Nicotine (Nicotine 21 Mg Patch.Td24) 21 mg TRANSDERMA DAILY PRN PRN Reason: nicotine cravings Nicotine Polacrilex (Nicotine Polacrilex 2 Mg Gum) 4 mg BUCCAL Q2H PRN PRN Reason: Nicotine Cravings Pantoprazole Sodium (Pantoprazole Sodium 20 Mg Tablet.Dr) 40 mg PO DAILY@0630 [facility] Last Admin: 05/30/24 06:34 Dose: 40 mg Quetiapine Fumarate (Quetiapine Fumarate 100 Mg Tablet) 500 mg PO BEDTIME [facility] Last Admin: 05/29/24 21:06 Dose: 500 mg Rivaroxaban (Rivaroxaban 20 Mg Tablet) 20 mg PO DAILY@1700 [facility] Last Admin: 05/29/24 17:03 Dose: 20 mg Sertraline HCl (Sertraline Hcl 100 Mg Tablet) 100 mg PO DAILY [facility] Last Admin: 05/29/24 09:42 Dose: 100 mg Trazodone HCl (Trazodone Hcl 100 Mg Tablet) 200 mg PO BEDTIME [facility] Last Admin: 05/29/24 21:07 Dose: Not Given Home Medications ?Medication ?Instructions ?Recorded ?Confirmed ?Last Taken ?Type atorvastatin 40 mg tablet 80 mg PO BEDTIME 05/28/24 05/28/24 Unknown History bupropion HCl 300 mg 24 hr tablet, 300 mg PO DAILY 05/28/24 05/28/24 Unknown History extended release gabapentin 300 mg capsule 300 mg PO BID 05/28/24 05/28/24 Unknown History lisinopril 5 mg tablet 5 mg PO DAILY 05/28/24 05/28/24 Unknown History metoprolol tartrate 25 mg tablet 12.5 mg PO DAILY 05/28/24 05/28/24 Unknown History pantoprazole 40 mg tablet,delayed 40 mg PO DAILY 05/28/24 05/28/24 Unknown History release trazodone 100 mg tablet 200 mg BEDTIME 05/28/24 05/28/24 Unknown History Physical Exam 2 Vital Signs and Narrative: Vital Signs: Last Vital Signs Temp 97 F 05/29/24 20:00 Pulse 81 05/29/24 20:00 Resp 16 05/29/24 23:16 BP 138/78 05/29/24 20:00 Pulse Ox 98 05/29/24 20:00 O2 Del Method Room Air 05/29/24 20:00 BMI result Body Mass Index 38.1 Const: Other: Constitutional : interactive, not in distress Cardiovascular : no JVP, no lower extremity edema Respiratory : bilateral chest movement, not in resp distress Gastrointestinal: soft, lax, Non tender Skin : Warm, Dry Neurological : Alert & oriented , No focal deficit Results Labs 05/29/24 10:37 Labs: Laboratory Results - last 24 hr 05/29/24 05/29/24 05/29/24 08:01 10:37 12:16 Estim Creat Clear Calc 177.2 Estimated GFR > 60 POC Glucose 116 H 88 Estimat Average Glucose 140 Hemoglobin A1c % 6.5 H Magnesium 1.9 Triglycerides 225 H Cholesterol 114 LDL Cholesterol, Calc 38 HDL Cholesterol 31 L Vitamin B12 738 Folate 11.8 TSH 0.99 Free T4 0.87 05/29/24 21:20 Estim Creat Clear Calc Estimated GFR POC Glucose 74 Estimat Average Glucose Hemoglobin A1c % Magnesium Triglycerides Cholesterol LDL Cholesterol, Calc HDL Cholesterol Vitamin B12 Folate TSH Free T4 Assessment and Plan (1) History of pulmonary embolism: Status: Acute (2) Diabetes: Status: Acute Plan A 45 years old male with PMH of CAD, HLD, Hx PE, DMII, PTSD, Depression, Bipolar among others. On Xarelto for hx of PEs? He is presently admitted to inpatient Psych unit due to depression and suicidal thoughts. Chest pain check EKG, trend Trop I continue Plavix and MEtoprolol Hx PEs on Xarelto, to continue GERD Pantoprazole HTN Lisinopril DMII Metformin Thank you for the consult will continue to monitor with you
[2024-05-30 08:00] VITALS: BP 129/70; PULSE 77; TEMP 36.5; O2SAT 97
[2024-05-30 08:28] LABS: Glucose, Whole Blood 113 mg/dL (60-115)
[2024-05-30 09:38] VITALS: BP 129/70
[2024-05-30] MEDS: buPROPion HCl XL 300 MG TAB.ER.24H PO (09:38)
[2024-05-30] MEDS: lisinopriL 5 MG TABLET PO (09:38)
[2024-05-30] MEDS: Metoprolol Tartrate 12.5 MG HALFTAB PO (09:38)
[2024-05-30] MEDS: Gabapentin 300 MG CAPSULE PO ×2 (09:39→21:35)
[2024-05-30] MEDS: ARIPiprazole 10 MG TABLET PO (09:39)
[2024-05-30] MEDS: Clopidogrel Bisulfate 75 MG TABLET PO (09:39)
[2024-05-30] MEDS: Sertraline HCL 100 MG TABLET PO (09:39)
[2024-05-30] MEDS: Lidocaine 4 % Patch ADH..PATCH 1 PATCH TRANSDERMA (09:39)
[2024-05-30] MEDS: metFORMIN HCl 500 MG TABLET PO ×2 (09:39→17:24)
[2024-05-30 12:08] LABS: Glucose, Whole Blood 87 mg/dL (60-115)
--- NOTE | 2024-05-30 14:01 | HO.PSYCHPN ---
Subjective Subjective Date of Service: 05/30/24 Reason For Visit: Major depression, recurrent, sever w/ psychosis Subjective Notes: Conditional Voluntary Healthcare Proxy: No Guardianship: No Medical Problems Affecting Mental Status: No Interim History: Episode of 10/10 chest pain this afternoon with EKG wnl. Review of meds with pt Review of vitamins which are ordered. Discussion of tx plan. Plan to dc next week- pt agrees, he is hoping for Discussed sleep issues. Reports he slept 9pm - 4 am. Discussed trying to retire later in the evening to prevent RADHA Medication Compliance: Yes Side effects from medications: No Attending Groups: Intermittent Review of Systems Acute medical concerns: No Medical Review of Systems: unchanged Review of Systems Review of Systems chest pain resolved Mental Status Exam Mental Status Exam Patient Appearance: Fatigued Patient Orientation: Person, Place, Time and Situation Level of Consciousness: Alert Patient Behavior: Talkative and Good Eye Contact Mood Description: Depressed Affect Description: Anxious and Flat Patient Cognition Impaired: No Speech Pattern: Spontaneous Speech Memory Description: Episodic Impaired Hallucinations: Auditory Delusions: Present Thought Process: Rumination Thought Content: positive for Perseveration and positive for Suicidal Ideation Depressive Symptoms: Increased Anxiety and Increased Irritability Judgement: Fair Diagnostics Vital Signs (24Hr): Vital Signs - 24 hr 05/29/24 20:00 05/29/24 23:16 05/30/24 08:00 Temperature 97 F 97.7 F Pulse Rate 81 77 Respiratory Rate 16 Blood Pressure 138/78 129/70 Pulse Oximetry 98 97 Oxygen Delivery Method Room Air Room Air 05/30/24 09:38 Temperature Pulse Rate Respiratory Rate Blood Pressure 129/70 Pulse Oximetry Oxygen Delivery Method BMI result Body Mass Index 38.1 Labs 05/29/24 10:37 Labs: Laboratory Results - last 48 hr 05/28/24 05/29/24 05/29/24 21:45 08:01 10:37 Creatinine 0.67 Estim Creat Clear Calc 177.2 Estimated GFR > 60 POC Glucose 172 H 116 H Estimat Average Glucose 140 Hemoglobin A1c % 6.5 H Magnesium 1.9 Triglycerides 225 H Cholesterol 114 LDL Cholesterol, Calc 38 HDL Cholesterol 31 L Vitamin B12 738 Folate 11.8 TSH 0.99 Free T4 0.87 05/29/24 05/29/24 05/30/24 12:16 21:20 08:13 Creatinine Estim Creat Clear Calc Estimated GFR POC Glucose 88 74 113 Estimat Average Glucose Hemoglobin A1c % Magnesium Triglycerides Cholesterol LDL Cholesterol, Calc HDL Cholesterol Vitamin B12 Folate TSH Free T4 05/30/24 12:02 Creatinine Estim Creat Clear Calc Estimated GFR POC Glucose 87 Estimat Average Glucose Hemoglobin A1c % Magnesium Triglycerides Cholesterol LDL Cholesterol, Calc HDL Cholesterol Vitamin B12 Folate TSH Free T4 Medications Medications Current Medications Al Hydroxide/Mg Hydroxide (Magnesium Hydrox/Alum Hydrox 30 Ml Oral.Susp) 30 ml PO Q6H PRN PRN Reason: Heartburn/Nausea Aripiprazole (Aripiprazole 10 Mg Tablet) 10 mg PO DAILY [facility] Last Admin: 05/30/24 09:39 Dose: 10 mg Atorvastatin Calcium (Atorvastatin Calcium 80 Mg Tablet) 80 mg PO BEDTIME [facility] Last Admin: 05/29/24 21:05 Dose: 80 mg Bupropion HCl (Bupropion Hcl Xl 300 Mg Tab.Er.24h) 300 mg PO DAILY [facility] Last Admin: 05/30/24 09:38 Dose: 300 mg Clopidogrel Bisulfate (Clopidogrel Bisulfate 75 Mg Tablet) 75 mg PO DAILY [facility] Last Admin: 05/30/24 09:39 Dose: 75 mg Gabapentin (Gabapentin 300 Mg Capsule) 300 mg PO BID [facility] Last Admin: 05/30/24 09:39 Dose: 300 mg Hydroxyzine HCl (Hydroxyzine Hcl 25 Mg Tablet) 25 mg PO Q6H PRN PRN Reason: mild anxiety Lamotrigine (Lamotrigine 25 Mg Tablet) 25 mg PO BEDTIME [facility] Last Admin: 05/29/24 21:06 Dose: 25 mg Levothyroxine Sodium (Levothyroxine Sodium 25 Mcg Tablet) 25 mcg PO DAILY@0600 [facility] Last Admin: 05/30/24 06:34 Dose: 25 mcg Lidocaine (Lidocaine 4 % Patch Adh..Patch) 1 patch TRANSDERMA DAILY [facility]; Protocol Last Admin: 05/30/24 09:39 Dose: 1 patch Lisinopril (Lisinopril 5 Mg Tablet) 5 mg PO DAILY [facility]; Protocol Last Admin: 05/30/24 09:38 Dose: 5 mg Magnesium Hydroxide (Milk Of Magnesia 30 Ml Oral.Susp) 30 ml PO DAILY PRN PRN Reason: Constipation Melatonin (Melatonin 3 Mg Tablet) 3 mg PO BEDTIME [facility] Last Admin: 05/29/24 21:06 Dose: 3 mg Metformin HCl (Metformin Hcl 500 Mg Tablet) 500 mg PO 0800,1700 [facility] Last Admin: 05/30/24 09:39 Dose: 500 mg Metoprolol Tartrate (Metoprolol Tartrate 12.5 Mg Halftab) 12.5 mg PO DAILY [facility]; Protocol Last Admin: 05/30/24 09:38 Dose: 12.5 mg Nicotine (Nicotine 21 Mg Patch.Td24) 21 mg TRANSDERMA DAILY PRN PRN Reason: nicotine cravings Nicotine Polacrilex (Nicotine Polacrilex 2 Mg Gum) 4 mg BUCCAL Q2H PRN PRN Reason: Nicotine Cravings Pantoprazole Sodium (Pantoprazole Sodium 20 Mg Tablet.Dr) 40 mg PO DAILY@0630 [facility] Last Admin: 05/30/24 06:34 Dose: 40 mg Quetiapine Fumarate (Quetiapine Fumarate 100 Mg Tablet) 500 mg PO BEDTIME [facility] Last Admin: 05/29/24 21:06 Dose: 500 mg Rivaroxaban (Rivaroxaban 20 Mg Tablet) 20 mg PO DAILY@1700 [facility] Last Admin: 05/29/24 17:03 Dose: 20 mg Sertraline HCl (Sertraline Hcl 100 Mg Tablet) 100 mg PO DAILY [facility] Last Admin: 05/30/24 09:39 Dose: 100 mg Trazodone HCl (Trazodone Hcl 100 Mg Tablet) 200 mg PO BEDTIME [facility] Last Admin: 05/29/24 21:07 Dose: Not Given Allergies Allergies Allergy/AdvReac Type Severity Reaction Status Date / Time acetaminophen [From TYLENOL] Allergy Severe ANAPHYLAXIS Verified 12/10/20 20:07 aspirin [ASA] Allergy Severe ANAPHYLAXIS Verified 12/10/20 20:07 nitroglycerin [NITROGLYCERIN] Allergy Severe ANAPHYLAXIS Verified 12/10/20 20:07 amoxicillin [AMOXICILLIN] Allergy Mild RASH Verified 12/10/20 20:07 fish derived [fish] Allergy Anaphylaxis Verified 04/22/24 11:04 ibuprofen Allergy Anaphylaxis Verified 04/21/24 16:34 Poultry Allergy Anaphylaxis Verified 04/22/24 11:04 Assessment & Plan Assessment & Plan (1) PTSD (post-traumatic stress disorder): Status: Acute Code(s): F43.10 - Post-traumatic stress disorder, unspecified (2) Autism: Status: Acute Code(s): F84.0 - Autistic disorder (3) Bipolar disorder: Status: Acute Code(s): F31.9 - Bipolar disorder, unspecified Plan Admit, CV, 15 minute checks Diaganostics as needed Encourage milieu Collateral Contact Re-start regime Increase Abilify to 10 mg daily Increase Seroquel to 500 mg HS (hx of 600 mg last admit) Lamictal 25 mg daily (hx pancreatitis x 3 with Depakote, intolerant to [place]) Discharge planning 05/30: Continue tx Tolerating Lamictal Reason for continued inpatient stay Substantial Risk for: rapid decompensation Time Spent With Patient Time: Total time managing care of this patient today ____ minutes.
--- NOTE | 2024-05-30 14:29 | PC.NURSE ---
Patient reported 10/10 left sided chest pain radiating into his back, proceeded to sit in the kitchen and socialize with peers. Provider notified-EKG ordered
[2024-05-30 16:36] LABS: Troponin-I High Sensitivity 4.5 ng/L (<3.5-35.0)
[2024-05-30 17:21] LABS: Glucose, Whole Blood 98 mg/dL (60-115)
[2024-05-30] MEDS: Rivaroxaban 20 MG TABLET PO (17:24)
[2024-05-30 19:49] VITALS: BP 129/60; PULSE 69; RESP 18; TEMP 37.4; O2SAT 99
[2024-05-30 20:07] LABS: Troponin-I High Sensitivity < 2.7 ng/L (<3.5-35.0)
--- NOTE | 2024-05-30 20:39 | PM.EVENT ---
Event Note Date of Service: 05/30/24 Event Note: Follow up for a 48-year-old male admitted to [facility] complaining of left-sided chest pain radiating to arm associated with SOB and sweating that lasted for 10 minutes that resolved with rest. Initial troponin WNL at 4.5 with repeat troponin negative; EKG showing normal sinus rhythm without evidence of significant ischemic changes. Workup at this time indicates chest pain and diaphoresis likely not cardiogenic in nature; more likely secondary to anxiety. Will sign off at this time. Please re-consult any acute issue or need arises. Time Spent With Patient Time: Total time managing care of this patient today ____ minutes.
[2024-05-30] MEDS: QUEtiapine Fumarate 100 MG TABLET 500 MG PO (21:35)
[2024-05-30] MEDS: lamoTRIgine 25 MG TABLET PO (21:35)
[2024-05-30] MEDS: hydrOXYzine HCL 25 MG TABLET PO (21:35)
[2024-05-30] MEDS: Melatonin 3 MG TABLET PO (21:35)
[2024-05-30] MEDS: Atorvastatin Calcium 80 MG TABLET PO (21:35)
[2024-05-30 21:53] LABS: Glucose, Whole Blood 163 mg/dL (60-115)
--- NOTE | 2024-05-31 | ECG_ITS ---
Test Reason : chest pain Blood Pressure : */* mmHG Vent. Rate : 86 BPM Atrial Rate : 86 BPM P-R Int : 176 ms QRS Dur : 96 ms QT Int : 348 ms P-R-T Axes : 37 33 40 degrees QTcB Int : 416 ms Normal sinus rhythm Normal ECG When compared with ECG of 30-May-2024 14:33, No significant change was found Referred By: Pedro Guardado Electronically Signed By: NORM BOWERS
[2024-05-31] MEDS: Pantoprazole Sodium 20 MG TABLET.DR 40 MG PO (07:30)
[2024-05-31] MEDS: Levothyroxine Sodium 25 MCG TABLET PO (07:33)
[2024-05-31 08:29] VITALS: BP 129/75; PULSE 70; RESP 16; TEMP 36.6; O2SAT 97
[2024-05-31] MEDS: Clopidogrel Bisulfate 75 MG TABLET PO (08:36)
[2024-05-31] MEDS: metFORMIN HCl 500 MG TABLET PO ×2 (08:36→17:24)
[2024-05-31] MEDS: buPROPion HCl XL 300 MG TAB.ER.24H PO (08:36)
[2024-05-31] MEDS: ARIPiprazole 10 MG TABLET PO (08:36)
[2024-05-31] MEDS: lisinopriL 5 MG TABLET PO (08:36)
[2024-05-31] MEDS: Metoprolol Tartrate 12.5 MG HALFTAB PO (08:36)
[2024-05-31] MEDS: Sertraline HCL 100 MG TABLET PO (08:36)
[2024-05-31] MEDS: Gabapentin 300 MG CAPSULE PO ×2 (08:36→21:42)
[2024-05-31] MEDS: Ferrous Sulfate 324 MG TABLET.DR PO (08:36)
[2024-05-31] MEDS: Thiamine HCL 100 MG TABLET PO (08:36)
[2024-05-31] MEDS: Multivitamin TABLET 1 TAB PO (08:36)
[2024-05-31] MEDS: Cholecalciferol (Vitamin D3) 10 MCG TABLET PO (08:36)
[2024-05-31 08:49] LABS: Glucose, Whole Blood 123 mg/dL (60-115)
[2024-05-31 12:07] LABS: Glucose, Whole Blood 103 mg/dL (60-115)
[2024-05-31 14:10] VITALS: BP 136/74; PULSE 103; RESP 14; O2SAT 95
[2024-05-31 15:28] LABS: Troponin-I High Sensitivity < 2.7 ng/L (<3.5-35.0)
[2024-05-31 15:57] VITALS: BP 130/73; PULSE 73; RESP 16; O2SAT 96
--- NOTE | 2024-05-31 16:24 | P.PNPSI_ITS ---
Subjective Subjective Date of Service: 05/31/24 Reason For Visit: Major depression, recurrent, sever w/ psychosis Interim History: Met patient; discussed with team Patient reports that he is doing good and of note is with bright affect. Patient walking the halls, casually talking and socializing with peers. He denies any psychiatric symptoms including SI, AVH. Mental Status Exam Mental Status Exam Narrative: Pt is alert and oriented; behavior is cooperative, friendly and calm; patient is not in distress; dressed in casual attire with adequate hygiene; mood is described as good and affect congruent; eye contact appropriate; Speech is normal rate, volume and prosody and not pressured; no psychomotor agitation/retardation present; thought process is organized and goal directed; Thought content is on tx; otherwise pertinent to relevant topics and without any delusional content, paranoid ideations or grandiosity; denies any SI/HI. There is no evidence of perceptual disturbance. Patients insight and judgment appear intact. Diagnostics Vital Signs (24Hr): Vital Signs - 24 hr 05/30/24 19:49 05/31/24 08:29 05/31/24 14:10 Temperature 99.3 F 97.9 F Pulse Rate 69 70 103 H Respiratory Rate 18 16 14 Blood Pressure 129/60 129/75 136/74 Pulse Oximetry 99 97 95 Oxygen Delivery Method Room Air Room Air Room Air 05/31/24 15:57 Temperature Pulse Rate 73 Respiratory Rate 16 Blood Pressure 130/73 Pulse Oximetry 96 Oxygen Delivery Method Room Air BMI result Body Mass Index 38.1 Labs 05/29/24 10:37 Labs: Laboratory Results - last 48 hr 05/29/24 05/30/24 05/30/24 21:20 08:13 12:02 POC Glucose 74 113 87 Troponin I High Sens 05/30/24 05/30/24 05/30/24 16:00 17:17 19:40 POC Glucose 98 Troponin I High Sens 4.5 D < 2.7 05/30/24 05/31/24 05/31/24 20:47 08:41 12:03 POC Glucose 163 H 123 H 103 Troponin I High Sens 05/31/24 14:45 POC Glucose Troponin I High Sens < 2.7 Medications Medications Current Medications Al Hydroxide/Mg Hydroxide (Magnesium Hydrox/Alum Hydrox 30 Ml Oral.Susp) 30 ml PO Q6H PRN PRN Reason: Heartburn/Nausea Aripiprazole (Aripiprazole 10 Mg Tablet) 10 mg PO DAILY [facility] Last Admin: 05/31/24 08:36 Dose: 10 mg Atorvastatin Calcium (Atorvastatin Calcium 80 Mg Tablet) 80 mg PO BEDTIME [facility] Last Admin: 05/30/24 21:35 Dose: 80 mg Bupropion HCl (Bupropion Hcl Xl 300 Mg Tab.Er.24h) 300 mg PO DAILY [facility] Last Admin: 05/31/24 08:36 Dose: 300 mg Clopidogrel Bisulfate (Clopidogrel Bisulfate 75 Mg Tablet) 75 mg PO DAILY [facility] Last Admin: 05/31/24 08:36 Dose: 75 mg Ferrous Sulfate (Ferrous Sulfate 324 Mg Tablet.Dr) 324 mg PO DAILY [facility] Last Admin: 05/31/24 08:36 Dose: 324 mg Gabapentin (Gabapentin 300 Mg Capsule) 300 mg PO BID [facility] Last Admin: 05/31/24 08:36 Dose: 300 mg Hydroxyzine HCl (Hydroxyzine Hcl 25 Mg Tablet) 25 mg PO Q6H PRN PRN Reason: mild anxiety Last Admin: 05/30/24 21:35 Dose: 25 mg Lamotrigine (Lamotrigine 25 Mg Tablet) 25 mg PO BEDTIME [facility] Last Admin: 05/30/24 21:35 Dose: 25 mg Levothyroxine Sodium (Levothyroxine Sodium 25 Mcg Tablet) 25 mcg PO DAILY@0600 [facility] Last Admin: 05/31/24 07:33 Dose: 25 mcg Lidocaine (Lidocaine 4 % Patch Adh..Patch) 1 patch TRANSDERMA DAILY [facility]; Protocol Last Admin: 05/31/24 08:37 Dose: Not Given Lisinopril (Lisinopril 5 Mg Tablet) 5 mg PO DAILY [facility]; Protocol Last Admin: 05/31/24 08:36 Dose: 5 mg Magnesium Hydroxide (Milk Of Magnesia 30 Ml Oral.Susp) 30 ml PO DAILY PRN PRN Reason: Constipation Melatonin (Melatonin 3 Mg Tablet) 3 mg PO BEDTIME [facility] Last Admin: 05/30/24 21:35 Dose: 3 mg Metformin HCl (Metformin Hcl 500 Mg Tablet) 500 mg PO 0800,1700 [facility] Last Admin: 05/31/24 08:36 Dose: 500 mg Metoprolol Tartrate (Metoprolol Tartrate 12.5 Mg Halftab) 12.5 mg PO DAILY [facility]; Protocol Last Admin: 05/31/24 08:36 Dose: 12.5 mg Multivitamins/Vitamin C (Multivitamin Tablet) 1 tab PO DAILY [facility] Last Admin: 05/31/24 08:36 Dose: 1 tab Nicotine (Nicotine 21 Mg Patch.Td24) 21 mg TRANSDERMA DAILY PRN PRN Reason: nicotine cravings Nicotine Polacrilex (Nicotine Polacrilex 2 Mg Gum) 4 mg BUCCAL Q2H PRN PRN Reason: Nicotine Cravings Pantoprazole Sodium (Pantoprazole Sodium 20 Mg Tablet.Dr) 40 mg PO DAILY@0630 [facility] Last Admin: 05/31/24 07:30 Dose: 40 mg Quetiapine Fumarate (Quetiapine Fumarate 100 Mg Tablet) 500 mg PO BEDTIME [facility] Last Admin: 05/30/24 21:35 Dose: 500 mg Rivaroxaban (Rivaroxaban 20 Mg Tablet) 20 mg PO DAILY@1700 [facility] Last Admin: 05/30/24 17:24 Dose: 20 mg Sertraline HCl (Sertraline Hcl 100 Mg Tablet) 100 mg PO DAILY [facility] Last Admin: 05/31/24 08:36 Dose: 100 mg Thiamine HCl (Thiamine Hcl 100 Mg Tablet) 100 mg PO DAILY [facility] Last Admin: 05/31/24 08:36 Dose: 100 mg Vitamin D (Cholecalciferol (Vitamin D3) 10 Mcg Tablet) 10 mcg PO DAILY [facility] Last Admin: 05/31/24 08:36 Dose: 10 mcg Allergies Allergies Allergy/AdvReac Type Severity Reaction Status Date / Time acetaminophen [From TYLENOL] Allergy Severe ANAPHYLAXIS Verified 12/10/20 20:07 aspirin [ASA] Allergy Severe ANAPHYLAXIS Verified 12/10/20 20:07 nitroglycerin [NITROGLYCERIN] Allergy Severe ANAPHYLAXIS Verified 12/10/20 20:07 amoxicillin [AMOXICILLIN] Allergy Mild RASH Verified 12/10/20 20:07 fish derived [fish] Allergy Anaphylaxis Verified 04/22/24 11:04 ibuprofen Allergy Anaphylaxis Verified 04/21/24 16:34 Poultry Allergy Anaphylaxis Verified 04/22/24 11:04 Assessment & Plan Assessment & Plan (1) PTSD (post-traumatic stress disorder): Status: Acute Code(s): F43.10 - Post-traumatic stress disorder, unspecified (2) Autism: Status: Acute Code(s): F84.0 - Autistic disorder (3) Bipolar disorder: Status: Acute Code(s): F31.9 - Bipolar disorder, unspecified Plan Admit, CV, 15 minute checks Diaganostics as needed Encourage milieu Collateral Contact Re-start regime Increase Abilify to 10 mg daily Increase Seroquel to 500 mg HS (hx of 600 mg last admit) Lamictal 25 mg daily (hx pancreatitis x 3 with Depakote, intolerant to [place]) Discharge planning 05/30: Continue tx Tolerating Lamictal 05/31 Patient reports that he is doing good and of note is with bright affect. Patient walking the halls, casually talking and socializing with peers. He denies any psychiatric symptoms including SI, AVH. Patient educated on: diagnosis and medication risk/benefits Informed Consent: understands Reason for continued inpatient stay Substantial Risk for: stable for discharge Time Spent With Patient Time: Total time managing care of this patient today ____ minutes.
[2024-05-31] MEDS: hydrOXYzine HCL 25 MG TABLET PO (17:24)
[2024-05-31] MEDS: Rivaroxaban 20 MG TABLET PO (17:24)
[2024-05-31 19:12] LABS: Troponin-I High Sensitivity < 2.7 ng/L (<3.5-35.0)
[2024-05-31 19:37] VITALS: BP 152/70; PULSE 88; RESP 16; TEMP 36.1; O2SAT 97
--- NOTE | 2024-05-31 20:46 | P.CONHOSP_ITS ---
History of Present Illness Data of Consult Service Date: 05/31/24 Requesting physician: Pedro Guardado Primary Care Provider: Unknown Physician HPI Reason for consult: chest pain Patient is a 48-year-old male with a past medical history significant for mood disorder, PTSD, depression, autism, obesity, hypothyroid, HLD, history PE diabetes, BPH, CAD ?hx multiple MIs (per pt last in 2008 [facility]), consulted multiple times for chest pain. He reports the pain occurs intermittently throughout the day, worse with exertion such as walking. The pain radiates to his jaw and down his left arm. Episodes can last for hours. He rates his pain currently a 9.5/10. He also reports that he has been diaphoretic. He has anaphylactic reactions to aspirin and nitroglycerin therefore has not been able to try anything during these episodes. He had a cardiac consult back in April had a lengthy discussion was had sitting this was not cardiac, likely secondary to anxiety. 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 Review of Systems 2 Constitutional: Constitutional: Denies body ache(s), Denies chills, Denies fever(s) and Denies headache(s) Eyes: Eyes: Denies change in vision and Denies photophobia ENT: Denies headache(s), Denies nasal congestion, Denies nasal discharge and Denies sore throat Cardiovascular: Cardiovascular: Reports chest pain, Reports chest pain at rest, Denies rapid heart rate, Denies leg edema, Denies lightheadedness and Denies dyspnea Respiratory: Respiratory: Denies cough, Denies dyspnea and Denies wheezing Gastrointestinal: Gastrointestinal: Denies diarrhea, Denies nausea and Denies vomiting Genitourinary: Genitourinary: Denies dysuria and Denies urinary frequency Musculoskeletal: Musculoskeletal: Denies myalgias Neurologic: Denies headache(s) Allergic/Immunologic: Allergic/Immunologic: Denies wheezing [facility] Medical History Bipolar disorder Mood disorder PTSD (post-traumatic stress disorder) Depression History of pulmonary embolism BPH (benign prostatic hyperplasia) Diabetes Obesity Hypothyroid HLD (hyperlipidemia) CAD (coronary artery disease) Functional capacity: independent ambulation Surgical History History of coronary artery stent placement Social History Household Members: None Housing: Homeless Do you presently have visiting nurse or other home services: No Patient Tobacco Use Status: Never used Tobacco Smoked in Last 30 Days: No e-Cigarette/Vaping Use: Never Used Patient Interested in Nicotine Replacement: No Second Hand Smoke Exposure: No Use of substances other than those prescribed or required for medical reasons: No Currently Displaying Signs/Symptoms of Drug Intoxication Withdrawal: No Any prior treatment program specific to substance use: No Have you been hit, kicked, punched, or otherwise hurt by someone within the past year? If so, by whom?: No Do you feel safe in your current relationship?: Yes Is there a partner from a previous relationship who is making you feel unsafe now?: No Are you made to feel afraid or neglected: No Advance Directives: No Advance Directives Information Provided: No Do you have thoughts of harming others: None Do you have a plan to hurt others: No Plan Recently lost weight without trying: No How much weight loss: Not applicable Eating poorly because of decreased appetite: No Nutrition screen score: 0 Nutrition Risks: No Nutritional Risk Poor oral hygiene: No service: No Current occupational status: unemployed Sexual orientation: Straight/Heterosexual Meds Allergies Allergy/AdvReac Type Severity Reaction Status Date / Time acetaminophen [From TYLENOL] Allergy Severe ANAPHYLAXIS Verified 12/10/20 20:07 aspirin [ASA] Allergy Severe ANAPHYLAXIS Verified 12/10/20 20:07 nitroglycerin [NITROGLYCERIN] Allergy Severe ANAPHYLAXIS Verified 12/10/20 20:07 amoxicillin [AMOXICILLIN] Allergy Mild RASH Verified 12/10/20 20:07 fish derived [fish] Allergy Anaphylaxis Verified 04/22/24 11:04 ibuprofen Allergy Anaphylaxis Verified 04/21/24 16:34 Poultry Allergy Anaphylaxis Verified 04/22/24 11:04 Active Medications: Current Medications Al Hydroxide/Mg Hydroxide (Magnesium Hydrox/Alum Hydrox 30 Ml Oral.Susp) 30 ml PO Q6H PRN PRN Reason: Heartburn/Nausea Aripiprazole (Aripiprazole 10 Mg Tablet) 10 mg PO DAILY [facility] Last Admin: 05/31/24 08:36 Dose: 10 mg Atorvastatin Calcium (Atorvastatin Calcium 80 Mg Tablet) 80 mg PO BEDTIME [facility] Last Admin: 05/30/24 21:35 Dose: 80 mg Bupropion HCl (Bupropion Hcl Xl 300 Mg Tab.Er.24h) 300 mg PO DAILY [facility] Last Admin: 05/31/24 08:36 Dose: 300 mg Clopidogrel Bisulfate (Clopidogrel Bisulfate 75 Mg Tablet) 75 mg PO DAILY [facility] Last Admin: 05/31/24 08:36 Dose: 75 mg Ferrous Sulfate (Ferrous Sulfate 324 Mg Tablet.Dr) 324 mg PO DAILY [facility] Last Admin: 05/31/24 08:36 Dose: 324 mg Gabapentin (Gabapentin 300 Mg Capsule) 300 mg PO BID [facility] Last Admin: 05/31/24 08:36 Dose: 300 mg Hydroxyzine HCl (Hydroxyzine Hcl 25 Mg Tablet) 25 mg PO Q6H PRN PRN Reason: mild anxiety Last Admin: 05/31/24 17:24 Dose: 25 mg Lamotrigine (Lamotrigine 25 Mg Tablet) 25 mg PO BEDTIME [facility] Last Admin: 05/30/24 21:35 Dose: 25 mg Levothyroxine Sodium (Levothyroxine Sodium 25 Mcg Tablet) 25 mcg PO DAILY@0600 [facility] Last Admin: 05/31/24 07:33 Dose: 25 mcg Lidocaine (Lidocaine 4 % Patch Adh..Patch) 1 patch TRANSDERMA DAILY [facility]; Protocol Last Admin: 05/31/24 08:37 Dose: Not Given Lisinopril (Lisinopril 5 Mg Tablet) 5 mg PO DAILY [facility]; Protocol Last Admin: 05/31/24 08:36 Dose: 5 mg Magnesium Hydroxide (Milk Of Magnesia 30 Ml Oral.Susp) 30 ml PO DAILY PRN PRN Reason: Constipation Melatonin (Melatonin 3 Mg Tablet) 3 mg PO BEDTIME [facility] Last Admin: 05/30/24 21:35 Dose: 3 mg Metformin HCl (Metformin Hcl 500 Mg Tablet) 500 mg PO 0800,1700 [facility] Last Admin: 05/31/24 17:24 Dose: 500 mg Metoprolol Tartrate (Metoprolol Tartrate 12.5 Mg Halftab) 12.5 mg PO DAILY [facility]; Protocol Last Admin: 05/31/24 08:36 Dose: 12.5 mg Multivitamins/Vitamin C (Multivitamin Tablet) 1 tab PO DAILY [facility] Last Admin: 05/31/24 08:36 Dose: 1 tab Nicotine (Nicotine 21 Mg Patch.Td24) 21 mg TRANSDERMA DAILY PRN PRN Reason: nicotine cravings Nicotine Polacrilex (Nicotine Polacrilex 2 Mg Gum) 4 mg BUCCAL Q2H PRN PRN Reason: Nicotine Cravings Pantoprazole Sodium (Pantoprazole Sodium 20 Mg Tablet.Dr) 40 mg PO DAILY@0630 [facility] Last Admin: 05/31/24 07:30 Dose: 40 mg Quetiapine Fumarate (Quetiapine Fumarate 100 Mg Tablet) 500 mg PO BEDTIME [facility] Last Admin: 05/30/24 21:35 Dose: 500 mg Rivaroxaban (Rivaroxaban 20 Mg Tablet) 20 mg PO DAILY@1700 [facility] Last Admin: 05/31/24 17:24 Dose: 20 mg Sertraline HCl (Sertraline Hcl 100 Mg Tablet) 100 mg PO DAILY [facility] Last Admin: 05/31/24 08:36 Dose: 100 mg Thiamine HCl (Thiamine Hcl 100 Mg Tablet) 100 mg PO DAILY [facility] Last Admin: 05/31/24 08:36 Dose: 100 mg Vitamin D (Cholecalciferol (Vitamin D3) 10 Mcg Tablet) 10 mcg PO DAILY [facility] Last Admin: 05/31/24 08:36 Dose: 10 mcg Home Medications ?Medication ?Instructions ?Recorded ?Confirmed ?Last Taken ?Type atorvastatin 40 mg tablet 80 mg PO BEDTIME 05/28/24 05/28/24 Unknown History bupropion HCl 300 mg 24 hr tablet, 300 mg PO DAILY 05/28/24 05/28/24 Unknown History extended release gabapentin 300 mg capsule 300 mg PO BID 05/28/24 05/28/24 Unknown History lisinopril 5 mg tablet 5 mg PO DAILY 05/28/24 05/28/24 Unknown History metoprolol tartrate 25 mg tablet 12.5 mg PO DAILY 05/28/24 05/28/24 Unknown History pantoprazole 40 mg tablet,delayed 40 mg PO DAILY 05/28/24 05/28/24 Unknown History release trazodone 100 mg tablet 200 mg BEDTIME 05/28/24 05/28/24 Unknown History Physical Exam 2 Vital Signs and Narrative: Vital Signs: Last Vital Signs Temp 96.9 F 05/31/24 19:37 Pulse 88 05/31/24 19:37 Resp 16 05/31/24 19:37 BP 152/70 H 05/31/24 19:37 Pulse Ox 97 05/31/24 19:37 O2 Del Method Room Air 05/31/24 19:37 BMI result Body Mass Index 38.1 General: AOx3, no acute distress. pt was sitting in the kitchen watching TV comfortably. able to ambutlate without difficulty Resp: CTA bilaterally CVS: S1, S2, RRR GI: +BS, NT, no distention Skin: Warm, dry Neuro: Cranial nerves II-XII grossly intact bilaterally. Motor grossly intact bilaterally Extremities: No LE edema Psych: Appropriate affect Eyes: Direct Ophthalmoscopy: No photophobia Results Labs 05/29/24 10:37 Labs: Laboratory Results - last 24 hr 05/30/24 05/31/24 05/31/24 20:47 08:41 12:03 POC Glucose 163 H 123 H 103 Assessment and Plan (1) Atypical chest pain: Status: Chronic (2) Obesity: Status: Acute Plan Patient is a 48-year-old male with a past medical history significant for mood disorder, PTSD, depression, autism, obesity, hypothyroid, HLD, history PE diabetes, BPH, CAD ?hx multiple MIs (per pt last in 2008 [facility]), consulted multiple times for chest pain. Atypical chest pain - pt reporting 9.5/10 chest pain, however appears comfortable unless approached - trop <2.7 x2 today, 4.5 and 2.7 on repeat yesterday - EKG without ST elevations yesterday. NSR. - previous cardiology consult suggested non-cardiac chest pain - echo 04/25/2024 normal - re-consult Cardiology - continue PPI incase of GERD Thank you for allowing me to participate in the pt's care. Signing off for now. Please contact the medical team if any questions or concerns.
[2024-05-31 21:30] VITALS: BP 135/74; PULSE 84; RESP 16; TEMP 36.4; O2SAT 97
[2024-05-31] MEDS: lamoTRIgine 25 MG TABLET PO (21:42)
[2024-05-31] MEDS: Atorvastatin Calcium 80 MG TABLET PO (21:42)
[2024-05-31] MEDS: Melatonin 3 MG TABLET PO (21:42)
[2024-05-31] MEDS: QUEtiapine Fumarate 100 MG TABLET 500 MG PO (21:43)
[2024-05-31 22:30] VITALS: BP 144/72; PULSE 91; RESP 16; TEMP 36.3; O2SAT 97
[2024-06-01] MEDS: Levothyroxine Sodium 25 MCG TABLET PO (06:32)
[2024-06-01 07:48] VITALS: BP 126/65; PULSE 75; RESP 16; TEMP 36.6; O2SAT 96
[2024-06-01 07:58] LABS: Glucose, Whole Blood 106 mg/dL (60-115)
[2024-06-01] MEDS: Pantoprazole Sodium 20 MG TABLET.DR 40 MG PO (08:20)
[2024-06-01] MEDS: Gabapentin 300 MG CAPSULE PO ×2 (08:20→21:03)
[2024-06-01] MEDS: Metoprolol Tartrate 12.5 MG HALFTAB PO (08:21)
[2024-06-01] MEDS: Cholecalciferol (Vitamin D3) 10 MCG TABLET PO (08:21)
[2024-06-01] MEDS: Sertraline HCL 100 MG TABLET PO (08:21)
[2024-06-01] MEDS: Ferrous Sulfate 324 MG TABLET.DR PO (08:21)
[2024-06-01] MEDS: Thiamine HCL 100 MG TABLET PO (08:21)
[2024-06-01] MEDS: Multivitamin TABLET 1 TAB PO (08:21)
[2024-06-01] MEDS: buPROPion HCl XL 300 MG TAB.ER.24H PO (08:21)
[2024-06-01] MEDS: Clopidogrel Bisulfate 75 MG TABLET PO (08:21)
[2024-06-01] MEDS: ARIPiprazole 10 MG TABLET PO (08:21)
[2024-06-01] MEDS: lisinopriL 5 MG TABLET PO (08:21)
[2024-06-01] MEDS: metFORMIN HCl 500 MG TABLET PO ×2 (08:30→16:57)
--- NOTE | 2024-06-01 09:51 | P.PNPSI_ITS ---
Subjective Subjective Date of Service: 06/01/24 Reason For Visit: Major depression, recurrent, sever w/ psychosis Interim History: Met with patient; discussed with team Patient reports that his mood good and he denies any psychiatric complaints,; no SI. Patient asked for Lasix and Flomax to be restarted to which freelance writer agreed Yesterday patient complained of chest pain which he said was worsening; EKG unremarkable, tropes x2 unremarkable; freelance writer discussed case with hospitalist and placed a consult came in met with patient and agreed not cardiac related -last night patient came out a room until nurse that he had a seizure; on-call provider notified Mental Status Exam Mental Status Exam Narrative: Pt is alert and oriented; behavior is cooperative, friendly and calm; patient is not in distress; dressed in casual attire with adequate hygiene; mood is described as good and affect congruent; eye contact appropriate; Speech is normal rate, volume and prosody and not pressured; no psychomotor agitation/retardation present; thought process is organized and goal directed; Thought content is on tx; otherwise pertinent to relevant topics and without any delusional content, paranoid ideations or grandiosity; denies any SI/HI. There is no evidence of perceptual disturbance. Patients insight and judgment appear intact. Diagnostics Vital Signs (24Hr): Vital Signs - 24 hr 05/31/24 14:10 05/31/24 15:57 05/31/24 19:37 Temperature 96.9 F Pulse Rate 103 H 73 88 Respiratory Rate 14 16 16 Blood Pressure 136/74 130/73 152/70 H Pulse Oximetry 95 96 97 Oxygen Delivery Method Room Air Room Air Room Air 05/31/24 21:30 05/31/24 22:30 06/01/24 07:48 Temperature 97.5 F 97.4 F 98 F Pulse Rate 84 91 75 Respiratory Rate 16 16 16 Blood Pressure 135/74 144/72 H 126/65 Pulse Oximetry 97 97 96 Oxygen Delivery Method Room Air Room Air Room Air BMI result Body Mass Index 38.1 Labs 05/29/24 10:37 Labs: Laboratory Results - last 48 hr 05/30/24 05/30/24 05/30/24 12:02 16:00 17:17 POC Glucose 87 98 Troponin I High Sens 4.5 D 05/30/24 05/30/24 05/31/24 19:40 20:47 08:41 POC Glucose 163 H 123 H Troponin I High Sens < 2.7 05/31/24 05/31/24 05/31/24 12:03 14:45 18:32 POC Glucose 103 Troponin I High Sens < 2.7 < 2.7 06/01/24 07:41 POC Glucose 106 Troponin I High Sens Medications Medications Current Medications Al Hydroxide/Mg Hydroxide (Magnesium Hydrox/Alum Hydrox 30 Ml Oral.Susp) 30 ml PO Q6H PRN PRN Reason: Heartburn/Nausea Aripiprazole (Aripiprazole 10 Mg Tablet) 10 mg PO DAILY [facility] Last Admin: 06/01/24 08:21 Dose: 10 mg Atorvastatin Calcium (Atorvastatin Calcium 80 Mg Tablet) 80 mg PO BEDTIME [facility] Last Admin: 05/31/24 21:42 Dose: 80 mg Bupropion HCl (Bupropion Hcl Xl 300 Mg Tab.Er.24h) 300 mg PO DAILY [facility] Last Admin: 06/01/24 08:21 Dose: 300 mg Clopidogrel Bisulfate (Clopidogrel Bisulfate 75 Mg Tablet) 75 mg PO DAILY [facility] Last Admin: 06/01/24 08:21 Dose: 75 mg Ferrous Sulfate (Ferrous Sulfate 324 Mg Tablet.Dr) 324 mg PO DAILY [facility] Last Admin: 06/01/24 08:21 Dose: 324 mg Gabapentin (Gabapentin 300 Mg Capsule) 300 mg PO BID [facility] Last Admin: 06/01/24 08:20 Dose: 300 mg Hydroxyzine HCl (Hydroxyzine Hcl 25 Mg Tablet) 25 mg PO Q6H PRN PRN Reason: mild anxiety Last Admin: 05/31/24 17:24 Dose: 25 mg Lamotrigine (Lamotrigine 25 Mg Tablet) 25 mg PO BEDTIME [facility] Last Admin: 05/31/24 21:42 Dose: 25 mg Levothyroxine Sodium (Levothyroxine Sodium 25 Mcg Tablet) 25 mcg PO DAILY@0600 [facility] Last Admin: 06/01/24 06:32 Dose: 25 mcg Lidocaine (Lidocaine 4 % Patch Adh..Patch) 1 patch TRANSDERMA DAILY [facility]; Protocol Last Admin: 05/31/24 08:37 Dose: Not Given Lisinopril (Lisinopril 5 Mg Tablet) 5 mg PO DAILY [facility]; Protocol Last Admin: 06/01/24 08:21 Dose: 5 mg Magnesium Hydroxide (Milk Of Magnesia 30 Ml Oral.Susp) 30 ml PO DAILY PRN PRN Reason: Constipation Melatonin (Melatonin 3 Mg Tablet) 3 mg PO BEDTIME [facility] Last Admin: 05/31/24 21:42 Dose: 3 mg Metformin HCl (Metformin Hcl 500 Mg Tablet) 500 mg PO 0800,1700 [facility] Last Admin: 06/01/24 08:30 Dose: 500 mg Metoprolol Tartrate (Metoprolol Tartrate 12.5 Mg Halftab) 12.5 mg PO DAILY [facility]; Protocol Last Admin: 06/01/24 08:21 Dose: 12.5 mg Multivitamins/Vitamin C (Multivitamin Tablet) 1 tab PO DAILY [facility] Last Admin: 06/01/24 08:21 Dose: 1 tab Nicotine (Nicotine 21 Mg Patch.Td24) 21 mg TRANSDERMA DAILY PRN PRN Reason: nicotine cravings Nicotine Polacrilex (Nicotine Polacrilex 2 Mg Gum) 4 mg BUCCAL Q2H PRN PRN Reason: Nicotine Cravings Pantoprazole Sodium (Pantoprazole Sodium 20 Mg Tablet.Dr) 40 mg PO DAILY@0630 [facility] Last Admin: 06/01/24 08:20 Dose: 40 mg Quetiapine Fumarate (Quetiapine Fumarate 100 Mg Tablet) 500 mg PO BEDTIME [facility] Last Admin: 05/31/24 21:43 Dose: 500 mg Rivaroxaban (Rivaroxaban 20 Mg Tablet) 20 mg PO DAILY@1700 [facility] Last Admin: 05/31/24 17:24 Dose: 20 mg Sertraline HCl (Sertraline Hcl 100 Mg Tablet) 100 mg PO DAILY [facility] Last Admin: 06/01/24 08:21 Dose: 100 mg Thiamine HCl (Thiamine Hcl 100 Mg Tablet) 100 mg PO DAILY [facility] Last Admin: 06/01/24 08:21 Dose: 100 mg Vitamin D (Cholecalciferol (Vitamin D3) 10 Mcg Tablet) 10 mcg PO DAILY [facility] Last Admin: 06/01/24 08:21 Dose: 10 mcg Allergies Allergies Allergy/AdvReac Type Severity Reaction Status Date / Time acetaminophen [From TYLENOL] Allergy Severe ANAPHYLAXIS Verified 12/10/20 20:07 aspirin [ASA] Allergy Severe ANAPHYLAXIS Verified 12/10/20 20:07 nitroglycerin [NITROGLYCERIN] Allergy Severe ANAPHYLAXIS Verified 12/10/20 20:07 amoxicillin [AMOXICILLIN] Allergy Mild RASH Verified 12/10/20 20:07 fish derived [fish] Allergy Anaphylaxis Verified 04/22/24 11:04 ibuprofen Allergy Anaphylaxis Verified 04/21/24 16:34 Poultry Allergy Anaphylaxis Verified 04/22/24 11:04 Assessment & Plan Assessment & Plan (1) PTSD (post-traumatic stress disorder): Status: Acute Code(s): F43.10 - Post-traumatic stress disorder, unspecified (2) Atypical chest pain: Status: Chronic Code(s): R07.89 - Other chest pain (3) Obesity: Status: Acute Code(s): E66.9 - Obesity, unspecified (4) Autism: Status: Acute Code(s): F84.0 - Autistic disorder (5) Bipolar disorder: Status: Acute Code(s): F31.9 - Bipolar disorder, unspecified Plan Patient is a 48-year-old male with a past medical history significant for mood disorder, PTSD, depression, autism(?), obesity, hypothyroid, HLD, history PE diabetes, BPH, CAD ?hx multiple MIs (per pt last in 2008 [facility]), consulted multiple times for chest pain. dmit, CV, 15 minute checks Diaganostics as needed Encourage milieu Collateral Contact Re-start regime Increase Abilify to 10 mg daily Increase Seroquel to 500 mg HS (hx of 600 mg last admit) Lamictal 25 mg daily (hx pancreatitis x 3 with Depakote, intolerant to [place]) Discharge planning 05/30: Continue tx Tolerating Lamictal 05/31 Patient reports that he is doing good and of note is with bright affect. Patient walking the halls, casually talking and socializing with peers. He denies any psychiatric symptoms including SI, AVH. 06/01 Patient reports that his mood good and he denies any psychiatric complaints,; no SI. Patient asked for Lasix and Flomax to be restarted to which freelance writer agreed Yesterday patient complained of chest pain which he said was worsening though, patient witnessed by freelance writer and multiple staff to be sitting comfortably, playing cards, joking with peers and in no obvious distress; vitals remained WNL; EKG unremarkable, tropes x2 unremarkable; freelance writer discussed case with hospitalist and placed a consult came in met with patient and agreed not cardiac related -last night patient came out a room until nurse that he had a seizure; not witnessed, nursing felt like patient had no symptoms of being postictal; on-call provider notified ?Hospitalist consult: Atypical chest pain - pt reporting 9.5/10 chest pain, however appears comfortable unless approached - trop <2.7 x2 today, 4.5 and 2.7 on repeat yesterday - EKG without ST elevations yesterday. NSR. - previous cardiology consult suggested non-cardiac chest pain - echo 04/25/2024 normal - re-consult Cardiology - continue PPI incase of GERD Patient educated on: diagnosis and medication risk/benefits Informed Consent: understands Reason for continued inpatient stay Substantial Risk for: stable for discharge Time Spent With Patient Time: Total time managing care of this patient today ____ minutes.
[2024-06-01 10:04] VITALS: BP 126/68
[2024-06-01] MEDS: Furosemide 20 MG TABLET PO (10:04)
[2024-06-01] MEDS: Rivaroxaban 20 MG TABLET PO (16:57)
[2024-06-01 19:40] VITALS: BP 130/66; PULSE 85; RESP 16; TEMP 36.3; O2SAT 96
[2024-06-01 20:54] LABS: Glucose, Whole Blood 107 mg/dL (60-115)
[2024-06-01] MEDS: Tamsulosin HCL 0.4 MG CAPSULE PO (21:02)
[2024-06-01] MEDS: Melatonin 3 MG TABLET PO (21:02)
[2024-06-01] MEDS: QUEtiapine Fumarate 100 MG TABLET 500 MG PO (21:02)
[2024-06-01] MEDS: hydrOXYzine HCL 25 MG TABLET PO (21:02)
[2024-06-01] MEDS: lamoTRIgine 25 MG TABLET PO (21:02)
[2024-06-01] MEDS: Atorvastatin Calcium 80 MG TABLET PO (21:02)
[2024-06-02] MEDS: Levothyroxine Sodium 25 MCG TABLET PO (07:08)
[2024-06-02 07:44] LABS: Glucose, Whole Blood 156 mg/dL (60-115)
[2024-06-02 07:56] VITALS: BP 130/75; PULSE 78; RESP 16; TEMP 36.5; O2SAT 98
[2024-06-02] MEDS: ARIPiprazole 10 MG TABLET PO (08:19)
[2024-06-02] MEDS: Sertraline HCL 100 MG TABLET PO (08:19)
[2024-06-02] MEDS: Gabapentin 300 MG CAPSULE PO (08:19)
[2024-06-02] MEDS: Furosemide 20 MG TABLET PO (08:19)
[2024-06-02] MEDS: Clopidogrel Bisulfate 75 MG TABLET PO (08:19)
[2024-06-02] MEDS: Multivitamin TABLET 1 TAB PO (08:20)
[2024-06-02] MEDS: Cholecalciferol (Vitamin D3) 10 MCG TABLET PO (08:20)
[2024-06-02] MEDS: Thiamine HCL 100 MG TABLET PO (08:20)
[2024-06-02] MEDS: Metoprolol Tartrate 12.5 MG HALFTAB PO (08:20)
[2024-06-02] MEDS: Ferrous Sulfate 324 MG TABLET.DR PO (08:20)
[2024-06-02] MEDS: Pantoprazole Sodium 20 MG TABLET.DR 40 MG PO (08:20)
[2024-06-02] MEDS: metFORMIN HCl 500 MG TABLET PO (08:20)
[2024-06-02] MEDS: lisinopriL 5 MG TABLET PO (08:20)
[2024-06-02] MEDS: buPROPion HCl XL 300 MG TAB.ER.24H PO (08:20)
--- NOTE | 2024-06-02 10:36 | P.DS_ITS ---
DS: Providers Provider Date of Service: 06/02/24 Date of admission: 05/28/24 13:26 Date of discharge: 06/02/24 Primary care physician: Unknown Physician Admitting clinician: Coretta Moreira Attending physician on admission: Jay Belle Consults: 05/28/24 15:41 Consult to Hospitalist Routine Comment: Consulting Provider: [facility] Reason For Exam: Transfer pt 05/31/24 16:37 Consult to Hospitalist Routine Comment: Consulting Provider: [facility] Reason For Exam: worse CP, despite presentation/vitals/ekg; hx CAD Attending physician on discharge: Jay Belle Discharging clinician: Coretta Moreira DS: Diagnosis Discharge Diagnosis (1) PTSD (post-traumatic stress disorder): Status: Acute (2) Atypical chest pain: Status: Chronic (3) Obesity: Status: Acute (4) Autism: Status: Acute (5) Bipolar disorder: Status: Acute DS: Medications Discharge Medications Home Medications: Previous Rx's ?Medication ?Instructions ?Recorded aripiprazole 10 mg tablet 10 mg PO DAILY #30 tabs 06/02/24 atorvastatin 40 mg tablet 80 mg (2 x 40 mg) PO BEDTIME #60 06/02/24 tabs bupropion HCl 300 mg 24 hr tablet, 300 mg PO DAILY #30 tabs 06/02/24 extended release cholecalciferol (vitamin D3) 10 10 mcg PO DAILY #30 tabs 06/02/24 mcg (400 unit) tablet (Vitamin D3) clopidogrel 75 mg tablet 75 mg PO DAILY #14 tabs 06/02/24 ferrous sulfate 324 mg (65 mg 324 mg PO DAILY #30 tabs 06/02/24 iron) tablet,delayed release furosemide 20 mg tablet 20 mg PO DAILY #14 tabs 06/02/24 gabapentin 300 mg capsule 300 mg PO BID #60 caps 06/02/24 lamotrigine 25 mg tablet 25 mg PO BEDTIME #30 tabs 06/02/24 levothyroxine 25 mcg tablet 25 mcg PO DAILY@0600 #14 tabs 06/02/24 lidocaine 4 % topical patch 1 patch transdermal DAILY #30 ea 06/02/24 (Lidocaine Pain Relief) lisinopril 5 mg tablet 5 mg PO DAILY #15 tabs 06/02/24 melatonin 3 mg tablet 3 mg PO BEDTIME #30 tabs 06/02/24 metformin 500 mg tablet 500 mg PO BID@0800,1700 #28 tabs 06/02/24 metoprolol tartrate 25 mg tablet 12.5 mg PO DAILY #7 tabs 06/02/24 multivitamin (Daily-Marck tablet) 1 tab PO DAILY #30 tabs 06/02/24 pantoprazole 40 mg tablet,delayed 40 mg PO DAILY #14 tabs 06/02/24 release quetiapine 200 mg tablet (Seroquel) 200 mg PO BEDTIME #30 tabs 06/02/24 quetiapine 300 mg tablet (Seroquel) 300 mg PO BEDTIME #30 tabs 06/02/24 rivaroxaban 20 mg tablet (Xarelto) 20 mg PO DAILY@1700 #14 tabs 06/02/24 sertraline 100 mg tablet 100 mg PO DAILY #30 tabs 06/02/24 tamsulosin 0.4 mg capsule 0.4 mg PO BEDTIME #30 caps 06/02/24 thiamine mononitrate (vit B1) 100 100 mg PO DAILY #30 tabs 06/02/24 mg tablet Mental Status Exam Mental Status Exam Patient Appearance: Appropriate Patient Orientation: Person, Place, Time and Situation Level of Consciousness: Alert Patient Behavior: Talkative and Good Eye Contact Mood Description: Appropriate Affect Description: Appropriate Patient Cognition Impaired: No Ability to Follow Directions: Good Speech Pattern: Spontaneous Speech Memory Description: Episodic Impaired Hallucinations: None Delusions: Not Present Thought Process: Intact and Distracted Thought Content: positive for Intact Depressive Symptoms: Increased Irritability Judgement: Good Data Data Completed and Pending Completed studies during hospitalization [Text1]: 05/28/24 05/29/24 05/29/24 21:45 08:01 10:37 Creatinine 0.67 Estim Creat Clear Calc 177.2 Estimated GFR > 60 POC Glucose 172 H 116 H Estimat Average Glucose 140 Hemoglobin A1c % 6.5 H Magnesium 1.9 Troponin I High Sens Triglycerides 225 H Cholesterol 114 LDL Cholesterol, Calc 38 HDL Cholesterol 31 L Vitamin B12 738 Folate 11.8 TSH 0.99 Free T4 0.87 05/29/24 05/29/24 05/30/24 12:16 21:20 08:13 Creatinine Estim Creat Clear Calc Estimated GFR POC Glucose 88 74 113 Estimat Average Glucose Hemoglobin A1c % Magnesium Troponin I High Sens Triglycerides Cholesterol LDL Cholesterol, Calc HDL Cholesterol Vitamin B12 Folate TSH Free T4 05/30/24 05/30/24 05/30/24 12:02 16:00 17:17 Creatinine Estim Creat Clear Calc Estimated GFR POC Glucose 87 98 Estimat Average Glucose Hemoglobin A1c % Magnesium Troponin I High Sens 4.5 D Triglycerides Cholesterol LDL Cholesterol, Calc HDL Cholesterol Vitamin B12 Folate TSH Free T4 05/30/24 05/30/24 05/31/24 19:40 20:47 08:41 Creatinine Estim Creat Clear Calc Estimated GFR POC Glucose 163 H 123 H Estimat Average Glucose Hemoglobin A1c % Magnesium Troponin I High Sens < 2.7 Triglycerides Cholesterol LDL Cholesterol, Calc HDL Cholesterol Vitamin B12 Folate TSH Free T4 05/31/24 05/31/24 05/31/24 12:03 14:45 18:32 Creatinine Estim Creat Clear Calc Estimated GFR POC Glucose 103 Estimat Average Glucose Hemoglobin A1c % Magnesium Troponin I High Sens < 2.7 < 2.7 Triglycerides Cholesterol LDL Cholesterol, Calc HDL Cholesterol Vitamin B12 Folate TSH Free T4 06/01/24 06/01/24 06/02/24 07:41 20:51 07:39 Creatinine Estim Creat Clear Calc Estimated GFR POC Glucose 106 107 156 H Estimat Average Glucose Hemoglobin A1c % Magnesium Troponin I High Sens Triglycerides Cholesterol LDL Cholesterol, Calc HDL Cholesterol Vitamin B12 Folate TSH Free T4 DS: Summary Hospital Course Hospital Course: Admission to adult psychiatry for exacerbation of PTSD, Bipolar Disorder, Autism. History of atypical chest pain as well. Pt, who is known to this service, travels the country and admits himself medically and psychiatrically. This, per his team, has been a senior care plan he has used to access care. Medications were evaluated and titrated. Pt was offered full milieu therapy during admission. Pt will discharge to a senior care. He reports he plans to live locally as he has secured housing for next month. Status at Discharge Functional status at discharge: independent ambulation Overall status at discharge: patient is back to baseline Time Spent with Patient Time attestation: Total time managing care of this patient today ____ minutes. Time spent: Less than 30 minutes Discharge Plan Discharge Anticipated Discharge Date/Time: 06/02/24 11:30 Patient Disposition: Xfer Other Discharge Diagnosis: PTSD Bipolar Disorder Autism DM History of Atypical Chest Pain Referrals: [facility] [Other] - 06/04/24 12:00 pm (Please arrive 15 minutes prior to your scheduled appointment time to complete intake paperwork Appointment is with Indiana Barnhart ) [facility]- Psychiatric Evaluation [Other] - 07/01/24 2:50 pm (Appointment is via telehealth with Nelly Velazquez ) [facility]- Medication Management [Other] - 07/31/24 12:00 pm (Appointment is via telehealth with Nelly Velazquez ) Physician,Unknown J [Primary Care Provider] - (If you would like your records forwarded to a primary care provider in future, please call the hospital and ask for the medical records department.) Discharge Medications: New tamsulosin 0.4 mg Capsule 0.4 mg PO BEDTIME Qty: 30 0RF ferrous sulfate 324 mg (65 mg iron) Tablet,Delayed Release (Dr/Ec) 324 mg PO DAILY Qty: 30 0RF sertraline 100 mg Tablet 100 mg PO DAILY Qty: 30 0RF melatonin 3 mg Tablet 3 mg PO BEDTIME Qty: 30 0RF lamotrigine 25 mg Tablet 25 mg PO BEDTIME Qty: 30 0RF furosemide 20 mg Tablet 20 mg PO DAILY Qty: 14 0RF Protocol: Hold for SBP< HOLD for SBP < : 90 aripiprazole 10 mg Tablet 10 mg PO DAILY Qty: 30 0RF multivitamin [Daily-Marck] Tablet 1 tab PO DAILY Qty: 30 0RF lidocaine [Lidocaine Pain Relief] 4 % Adhesive Patch,Medicated 1 patch transdermal DAILY Qty: 30 0RF Protocol: Apply to: Apply to: affected area cholecalciferol (vitamin D3) [Vitamin D3] 10 mcg (400 unit) Tablet 10 mcg PO DAILY Qty: 30 0RF thiamine mononitrate (vit B1) 100 mg Tablet 100 mg PO DAILY Qty: 30 0RF quetiapine [Seroquel] 200 mg tablet 200 mg PO BEDTIME Qty: 30 0RF Rx Instructions: 500 mg HS quetiapine [Seroquel] 300 mg tablet 300 mg PO BEDTIME Qty: 30 0RF Rx Instructions: 500 mg HS Continued metformin 500 mg Tablet 500 mg PO BID@0800,1700 Qty: 28 0RF clopidogrel 75 mg Tablet 75 mg PO DAILY Qty: 14 0RF levothyroxine 25 mcg Tablet 25 mcg PO DAILY@0600 Qty: 14 0RF pantoprazole 40 mg tablet,delayed release (DR/EC) 40 mg PO DAILY Qty: 14 0RF gabapentin 300 mg capsule 300 mg PO BID Qty: 60 0RF lisinopril 5 mg tablet 5 mg PO DAILY Qty: 15 0RF bupropion HCl 300 mg Tablet Extended Release 24 Hr 300 mg PO DAILY Qty: 30 0RF Xarelto 20 mg Tablet 20 mg PO DAILY@1700 Qty: 14 0RF Changed atorvastatin 40 mg tablet 80 mg PO BEDTIME Qty: 60 0RF metoprolol tartrate 25 mg tablet 12.5 mg PO DAILY Qty: 7 0RF Protocol: Hold for SBP/HR < HOLD for SBP < : 90 HOLD for HR < : 60 Discontinued trazodone 100 mg tablet 200 mg BEDTIME Discharge Orders: Discharge Order (Routine); Ordered 06/02/24 Ordered By: Coretta Moreira Diet: Advance to usual diet Activity on Discharge: As tolerated Stand Alone Forms: Patient Portal Discharge page, Community Support Print Language: Kyrgyz Care Plan Goals: Mood and Behavioral Stabilization Health Concerns: Mood and Behavioral Stabilization Plan of Treatment: Attend scheduled appointments Take medications as directed Assessment: Scheduled discharge. Discharge Date/Time: 06/02/24 10:59
== END 2024-06-02 10:59 | disposition other institution (70) | DRG 885 ==
PROVIDERS: Student in an Organized Health Care Education/Training Program; Admitting Provider Psychiatry & Neurology Psychiatry; Visit Provider Clinical Nurse Specialist Psychiatric/Mental Health, Adult
DX: F31.9 Bipolar disorder, unspecified (principal); I25.10 Atherosclerotic heart disease of native coronary artery without angina pectoris; F84.0 Autistic disorder; N40.0 Benign prostatic hyperplasia without lower urinary tract symptoms; E11.9 Type 2 diabetes mellitus without complications; F43.10 Post-traumatic stress disorder, unspecified; R07.89 Other chest pain; E03.9 Hypothyroidism, unspecified; Z86.711 Personal history of pulmonary embolism; Z79.01 Long term (current) use of anticoagulants; Z79.02 Long term (current) use of antithrombotics/antiplatelets; Z79.84 Long term (current) use of oral hypoglycemic drugs; Z79.890 Hormone replacement therapy; Z79.899 Other long term (current) drug therapy
CPT/HCPCS: 36415; 80061; 82565; 82607; 82746; 82947; 83036; 83735; 84439; 84443; 84484; 93005; 94660

== ENCOUNTER 2024-05-28 13:26 | Outpatient (BNV) | payer OTHER, SELFPAY | END 2024-05-31 14:34 | PROVIDERS: Admitting Provider Psychiatry & Neurology Psychiatry; Visit Provider Internal Medicine | DX: R07.9 Chest pain, unspecified (principal) | CPT/HCPCS: 93010 ==

== ENCOUNTER 2024-05-28 13:26 | Outpatient (BNV) | payer OTHER, SELFPAY | END 2024-05-30 14:33 | PROVIDERS: Admitting Provider Psychiatry & Neurology Psychiatry; Visit Provider Internal Medicine | DX: R07.9 Chest pain, unspecified (principal) | CPT/HCPCS: 93010 ==

== ENCOUNTER → 2024-05-28 13:26 | Outpatient (BNV) | payer OTHER, SELFPAY | PROVIDERS: Admitting Provider Psychiatry & Neurology Psychiatry; Visit Provider Student in an Organized Health Care Education/Training Program | DX: Z86.711 Personal history of pulmonary embolism (principal); E11.9 Type 2 diabetes mellitus without complications | CPT/HCPCS: 99221; 99429; 99499 ==

== ENCOUNTER → 2024-05-28 13:26 | Outpatient (BNV) | payer OTHER, SELFPAY | PROVIDERS: Admitting Provider Psychiatry & Neurology Psychiatry; Visit Provider Clinical Nurse Specialist Psychiatric/Mental Health, Adult | DX: F43.10 Post-traumatic stress disorder, unspecified (principal); F84.0 Autistic disorder; F31.9 Bipolar disorder, unspecified | CPT/HCPCS: 90792; 99232 ==

== ENCOUNTER 2024-06-02 21:34 | Emergency (ER) | payer OTHER, SELFPAY ==
--- NOTE | ~2024-06-02 | XR_ITS ---
CLINICAL HISTORY: pain 1 view chest x-ray Comparison: Chest x-ray from 04/21/2024 Findings: Low lung volumes with mild bibasilar atelectasis/pneumonitis. No pneumothorax or pleural effusion. Imaged mediastinum is unchanged. Degenerative changes include imaged right AC joint. IMPRESSION: Mild bibasilar atelectasis and/or pneumonitis. This document has been electronically signed by: Pedro Wray MD on 06/02/2024 23:44:32
--- NOTE | 2024-06-02 21:43 | ECG_ITS ---
Test Reason : CHEST PAIN Blood Pressure : */* mmHG Vent. Rate : 102 BPM Atrial Rate : 102 BPM P-R Int : 198 ms QRS Dur : 102 ms QT Int : 342 ms P-R-T Axes : 37 25 40 degrees QTcB Int : 445 ms Sinus tachycardia Otherwise normal ECG When compared with ECG of 31-May-2024 14:34, No significant change was found Referred By: Generic ED Physician Electronically Signed By: NORM BOWERS
[2024-06-02 21:46] VITALS: BP 135/77; BP 152/75; PULSE 102; PULSE 103; RESP 20; TEMP 36.9; O2SAT 94; O2SAT 95; BMI 43.0
--- NOTE | 2024-06-02 22:18 | PC.NURSE ---
This RN attempted to obtain IV access twice, but was unsuccessful. Yarley Altamirano RN at bedside attempting to obtain labs & IV access at this time.
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
[2024-06-02 22:25] LABS: MANUAL DIFF FLAG NO
[2024-06-02 22:26] LABS: Basophils Percent Auto 0.4 % (0-2); Eosinophils Absolute Auto 0.1 X10*3/uL (0.0-0.4); Hemoglobin 10.2 g/dl (14.0-18.0); Imm Gran Abs Auto 0.02 X10*3/uL (0.00-0.03); Imm Gran Pct Auto 0.3 % (0.0-0.4); Mean Corpuscular HGB Conc 31.9 g/dl (31.0-36.0); Mean Corpuscular Hemoglobin 23.8 pg (27.0-33.0); Mean Corpuscular Volume 74.6 fL (80.0-98.0); Monocytes Absolute Auto 0.8 X10*3/uL (0.1-1.2); Monocytes Percent Auto 11.8 % (2-11); Neutrophils Absolute Auto 3.9 x10*3/uL (2.0-8.3); Neutrophils Percent Auto 56.5 % (45-73); Platelet Count 360 X10*3/uL (160-400); Red Blood Count 4.29 X10*6/uL (4.60-5.80); Red Cell Distribution Width 16.3 % (11.0-16.0); White Blood Count 6.9 X10*3/uL (4.8-10.8)
[2024-06-02 22:32] LABS: INTERNATIONAL NORM RATIO 1.1 (0.9-1.1); Prothrombin Time 12.9 SEC (10.9-12.4)
[2024-06-02 22:40] LABS: Anion Gap 15 (12-20); Blood Urea Nitrogen 14 mg/dL (9-16); Calcium 8.7 mg/dL (8.4-10.2); Carbon Dioxide 19 mmol/L (22-29); Chloride 110 mmol/L (96-108); Creatinine Clr Calc Pharmacy 154.7; Estimated Glomerular Filt Rate > 60; Glucose Random 90 mg/dL (60-115); Potassium 3.9 mmol/L (3.3-5.1); Sodium 140 mmol/L (135-145)
[2024-06-02 22:42] LABS: Appearance Urine Clear; Color Urine Yellow; Glucose Urine UA Negative (Negative); Leukocyte Esterase Urine Negative (Negative); Nitrite Urine Negative (Negative); PH 5.5 (5.0-9.0); Urine Blood Negative (Negative); Urine Ketones Negative (Negative); Urine Protein Negative (Neg-Trace)
[2024-06-02 22:47] LABS: Troponin-I High Sensitivity < 2.7 ng/L (<3.5-35.0)
[2024-06-02 22:57] LABS: Amphetamine Screen Urine Not Detected (Not Detect); Barbiturates, Urine Not Detected (Not Detect); Benzodiazepines Screen Urine Not Detected (Not Detect); Buprenorphine Scr Not Detected (Not Detect); Cannabinoid Screen Urine Not Detected (Not Detect); Cocaine Screen Urine Not Detected (Not Detect); Fentanyl, urine POSITIVE (Not Detect); Methadone Screen, Urine Not Detected (Not Detect); Opiate Screen Urine POSITIVE (Not Detect); Oxycodone Screen Urine Not Detected (Not Detect); Phencyclidine Screen Urine Not Detected (Not Detect)
[2024-06-02 23:27] VITALS: BP 120/76; PULSE 94; RESP 20; TEMP 36.7; O2SAT 95
[2024-06-02] MEDS: methocarbamoL 750 MG TABLET PO (23:30)
--- NOTE | 2024-06-02 23:35 | PC.NURSE ---
pt is alert and oriented, skin pwd, respirations even and unlabored. pt reports left sided chest pain that radiates to his left arm, pain feels like pressure and is intermittent, ns on the monitor pt is reporting that he feels very depressed and suicidal, nikolai olvera and charge nurse is aware of these new statments plan to get the patient changed over and moved to the pod.
--- NOTE | 2024-06-02 23:41 | PC.NURSE ---
report given to jeffry mensah
[2024-06-02 23:56] LABS: Troponin-I High Sensitivity < 2.7 ng/L (<3.5-35.0)
--- NOTE | 2024-06-03 00:21 | PC.NURSE ---
Addendum entered by Andreea Altamirano 06/03/24 00:22: at bedside Original Note: care team
[2024-06-03] MEDS: Melatonin 3 MG TABLET PO ×2 (02:58→20:26)
[2024-06-03] MEDS: lamoTRIgine 25 MG TABLET PO ×2 (02:58→20:26)
[2024-06-03] MEDS: QUEtiapine Fumarate 200 MG TABLET PO ×2 (02:58→20:26)
[2024-06-03] MEDS: QUEtiapine Fumarate 300 MG TABLET PO ×2 (02:58→20:26)
[2024-06-03] MEDS: Tamsulosin HCL 0.4 MG CAPSULE PO ×2 (02:59→20:26)
[2024-06-03] MEDS: Atorvastatin Calcium 80 MG TABLET PO ×2 (02:59→20:26)
--- NOTE | 2024-06-03 03:03 | ED.CHESTPAIN ---
HPI - Chest Pain General Chief Complaint: Chest Pain Stated Complaint: CHEST PAIN Time Seen by Provider: 06/02/24 21:50 Source: patient Limitations: no limitations History of Present Illness ED Provider: Ria Ma PA-C HPI narrative: 48-year-old male with a history of autism, obesity, hypothyroidism, hyperlipidemia, HTN, diabetes, ?6 heart attacks per patient with a 1 cardiac stent ?,prior PE on Xarelto, BPH presents with chest pain since this evening. Pain over left anterior chest which radiates to his left upper extremity. Denies recent cough or cold symptoms, no fever. Denies abdominal pain nausea or vomiting. Denies diaphoresis or shortness of breath. Patient was just discharged from inpatient psychiatric admission today. He states that he ?went to [place] to see his histopathology technician who gave him morphine for pain?. When I asked why he was in [place], the patient states ?I am here visiting my girlfriend?; the patient has a suitcase and numerous bags with the his belongings. When asked why the patient has all of his belongings, he states ?I was supposed to go to [place] for a job?. Related Data Previous Rx's ?Medication ?Instructions ?Recorded aripiprazole 10 mg tablet 10 mg PO DAILY #30 tabs 06/02/24 atorvastatin 40 mg tablet 80 mg (2 x 40 mg) PO BEDTIME #60 06/02/24 tabs bupropion HCl 300 mg 24 hr tablet, 300 mg PO DAILY #30 tabs 06/02/24 extended release cholecalciferol (vitamin D3) 10 10 mcg PO DAILY #30 tabs 06/02/24 mcg (400 unit) tablet (Vitamin D3) clopidogrel 75 mg tablet 75 mg PO DAILY #14 tabs 06/02/24 ferrous sulfate 324 mg (65 mg 324 mg PO DAILY #30 tabs 06/02/24 iron) tablet,delayed release furosemide 20 mg tablet 20 mg PO DAILY #14 tabs 06/02/24 gabapentin 300 mg capsule 300 mg PO BID #60 caps 06/02/24 lamotrigine 25 mg tablet 25 mg PO BEDTIME #30 tabs 06/02/24 levothyroxine 25 mcg tablet 25 mcg PO DAILY@0600 #14 tabs 06/02/24 lidocaine 4 % topical patch 1 patch transdermal DAILY #30 ea 06/02/24 (Lidocaine Pain Relief) lisinopril 5 mg tablet 5 mg PO DAILY #15 tabs 06/02/24 melatonin 3 mg tablet 3 mg PO BEDTIME #30 tabs 06/02/24 metformin 500 mg tablet 500 mg PO BID@0800,1700 #28 tabs 06/02/24 metoprolol tartrate 25 mg tablet 12.5 mg PO DAILY #7 tabs 06/02/24 multivitamin (Daily-Marck tablet) 1 tab PO DAILY #30 tabs 06/02/24 pantoprazole 40 mg tablet,delayed 40 mg PO DAILY #14 tabs 06/02/24 release quetiapine 200 mg tablet (Seroquel) 200 mg PO BEDTIME #30 tabs 06/02/24 quetiapine 300 mg tablet (Seroquel) 300 mg PO BEDTIME #30 tabs 06/02/24 rivaroxaban 20 mg tablet (Xarelto) 20 mg PO DAILY@1700 #14 tabs 06/02/24 sertraline 100 mg tablet 100 mg PO DAILY #30 tabs 06/02/24 tamsulosin 0.4 mg capsule 0.4 mg PO BEDTIME #30 caps 06/02/24 thiamine mononitrate (vit B1) 100 100 mg PO DAILY #30 tabs 06/02/24 mg tablet Allergies Allergy/AdvReac Type Severity Reaction Status Date / Time acetaminophen [From TYLENOL] Allergy Severe ANAPHYLAXIS Verified 06/02/24 21:52 aspirin [ASA] Allergy Severe ANAPHYLAXIS Verified 06/02/24 21:52 nitroglycerin [NITROGLYCERIN] Allergy Severe ANAPHYLAXIS Verified 06/02/24 21:52 amoxicillin [AMOXICILLIN] Allergy Mild RASH Verified 06/02/24 21:52 fish derived [fish] Allergy Anaphylaxis Verified 06/02/24 21:52 ibuprofen Allergy Anaphylaxis Verified 06/02/24 21:52 Poultry Allergy Anaphylaxis Verified 06/02/24 21:52 Review of Systems Review of Systems: Yes all other systems are reviewed and are negative Constitutional: Constitutional: Denies fatigue and Denies fever(s) Cardiovascular: Cardiovascular: Reports chest pain and Denies dyspnea Respiratory: Respiratory: Denies cough and Denies dyspnea Gastrointestinal: Gastrointestinal: Denies abdominal pain, Denies diarrhea, Denies nausea and Denies vomiting Endocrine: Endocrine: Denies fatigue PMFSH Past Medical History Attestation statement: The following information was validated with the patient. Medical History Bipolar disorder Mood disorder PTSD (post-traumatic stress disorder) Depression History of pulmonary embolism BPH (benign prostatic hyperplasia) Diabetes Obesity Hypothyroid HLD (hyperlipidemia) CAD (coronary artery disease) Surgical History History of coronary artery stent placement Social History Social History Household Members: None Housing: Homeless Do you presently have visiting nurse or other home services: No Patient Tobacco Use Status: Never used Tobacco Smoked in Last 30 Days: No e-Cigarette/Vaping Use: Never Used Second Hand Smoke Exposure: No Use of substances other than those prescribed or required for medical reasons: No Advance Directives: No Advance Directives Information Provided: No service: No Current occupational status: unemployed Sexual orientation: Straight/Heterosexual Physical Exam Vital Signs: Vital Signs: Last Vital Signs Temp 98.6 F 06/04/24 07:57 Pulse 98 06/04/24 07:57 Resp 18 06/04/24 07:57 BP 138/92 H 06/04/24 08:04 Pulse Ox 97 06/04/24 07:57 O2 Del Method Room Air 06/04/24 07:57 BMI result Body Mass Index 43.0 Const: Other: Alert Orientation/consciousness: patient oriented x3 Resp: Effort & Inspection: normal respiratory effort Cardio: Other: Normal peripheral perfusion Skin: Other: Warm dry no rash Neuro: General: patient oriented x3, gait normal, no focal motor deficits and CN's II-XI intact bilaterally Psych: Other: Cooperative until he was about to be discharged Course Reevaluation(s) Reevaluation #1: I spoke with the care team, they called the patient out on the fact that he was just discharged from , and that he keeps changing his story based upon who he is speaking with. The patient admits he has no where to go, he is agreeing to go to respite, he will go to respite in the morning. Reevaluation #2: STABLE CLINICALLY PLAN WAS TO DISCHARGE TO RESPITE THIS A.M. Time: 08:07 Reevaluation #3: no new complain vital signs stable as 08:00 o'clock in the morning patient is waiting for respite Additional Reevaluation(s): 3:20 PM d/c to respite Medications Administered Generic Name Dose Route Start Last Admin Trade Name Jovan PRAmy Reason Stop Dose Admin Aripiprazole 10 mg 06/03/24 09:00 06/04/24 08:04 Aripiprazole 10 Mg Tablet PO 10 mg DAILY ALYCIA Administration Atorvastatin Calcium 80 mg 06/03/24 02:15 06/03/24 20:26 Atorvastatin Calcium 80 Mg Tablet PO 80 mg BEDTIME ALYCIA Administration Bupropion HCl 300 mg 06/03/24 09:00 06/04/24 08:04 Bupropion Hcl Xl 300 Mg Tab.Er.24h PO 300 mg DAILY ALYCIA Administration Clopidogrel Bisulfate 75 mg 06/03/24 09:00 06/04/24 08:04 Clopidogrel Bisulfate 75 Mg Tablet PO 75 mg DAILY ALYCIA Administration Ferrous Sulfate 324 mg 06/03/24 09:00 06/04/24 08:04 Ferrous Sulfate 324 Mg Tablet.Dr PO 324 mg DAILY ALYCIA Administration Furosemide 20 mg 06/03/24 09:00 06/04/24 08:04 Furosemide 20 Mg Tablet PO 20 mg DAILY ALYCIA Administration Protocol Gabapentin 300 mg 06/03/24 09:00 06/04/24 08:04 Gabapentin 300 Mg Capsule PO 300 mg BID ALYCIA Administration Lamotrigine 25 mg 06/03/24 02:15 06/03/24 20:26 Lamotrigine 25 Mg Tablet PO 25 mg BEDTIME ALYCIA Administration Levothyroxine Sodium 25 mcg 06/03/24 06:00 06/04/24 05:30 Levothyroxine Sodium 25 Mcg Tablet PO 25 mcg DAILY@0600 ALYCIA Administration Lidocaine 1 patch 06/03/24 09:00 06/04/24 08:05 Lidocaine 4 % Patch Adh..Patch TRANSDERMA Not Given DAILY ALYCIA Protocol Lisinopril 5 mg 06/03/24 09:00 06/04/24 08:04 Lisinopril 5 Mg Tablet PO 5 mg DAILY ALYCIA Administration Protocol Melatonin 3 mg 06/03/24 02:15 06/03/24 20:26 Melatonin 3 Mg Tablet PO 3 mg BEDTIME ALYCIA Administration Metformin HCl 500 mg 06/03/24 08:00 06/04/24 08:04 Metformin Hcl 500 Mg Tablet PO 500 mg BID@0800,1700 ALYCIA Administration Metoprolol Tartrate 12.5 mg 06/03/24 09:00 06/04/24 08:04 Metoprolol Tartrate 12.5 Mg Halftab PO 12.5 mg DAILY ALYCIA Administration Protocol Multivitamins/Vitamin C 1 tab 06/03/24 09:00 06/04/24 08:04 Multivitamin Tablet PO 1 tab DAILY ALYCIA Administration Pantoprazole Sodium 40 mg 06/03/24 07:30 06/04/24 05:34 Pantoprazole Sodium 20 Mg Tablet.Dr PO 40 mg DAILY@0630 ALYCIA Administration Quetiapine Fumarate 200 mg 06/03/24 02:15 06/03/24 20:26 Quetiapine Fumarate 200 Mg Tablet PO 200 mg BEDTIME ALYCIA Administration Quetiapine Fumarate 300 mg 06/03/24 02:15 06/03/24 20:26 Quetiapine Fumarate 300 Mg Tablet PO 300 mg BEDTIME ALYCIA Administration Rivaroxaban 20 mg 06/03/24 17:00 06/03/24 17:27 Rivaroxaban 20 Mg Tablet PO 20 mg DAILY@1700 ALYCIA Administration Sertraline HCl 100 mg 06/03/24 09:00 06/04/24 08:04 Sertraline Hcl 100 Mg Tablet PO 100 mg DAILY ALYCIA Administration Tamsulosin HCl 0.4 mg 06/03/24 02:15 06/03/24 20:26 Tamsulosin Hcl 0.4 Mg Capsule PO 0.4 mg BEDTIME ALYCIA Administration Thiamine HCl 100 mg 06/03/24 09:00 06/04/24 08:05 Thiamine Hcl 100 Mg Tablet PO 100 mg DAILY ALYCIA Administration Vitamin D 10 mcg 06/03/24 09:00 06/04/24 08:05 Cholecalciferol (Vitamin D3) 10 Mcg Tablet PO Not Given DAILY ALYCIA Discontinued Medications Generic Name Dose Route Start Last Admin Trade Name Freq PRN Reason Stop Dose Admin Methocarbamol 750 mg 06/02/24 23:19 06/02/24 23:30 Methocarbamol 750 Mg Tablet PO 06/02/24 23:20 750 mg ONCE ONE Administration Medical Decision Making Medical Decision Making MDM Narrative: 48-year-old male with a history of autism, obesity, hypothyroidism, hyperlipidemia, HTN, diabetes, ?6 heart attacks per patient with a 1 cardiac stent ?,prior PE on Xarelto, BPH presents with chest pain since this evening. Pain over left anterior chest which radiates to his left upper extremity. Denies recent cough or cold symptoms, no fever. Denies abdominal pain nausea or vomiting. Denies diaphoresis or shortness of breath. Patient was just discharged from inpatient psychiatric admission today. He states that he ?went to [place] to see his histopathology technician who gave him morphine for pain?. When I asked why he was in [place], the patient states ?I am here visiting my girlfriend?; the patient has a suitcase and numerous bags with the his belongings. When asked why the patient has all of his belongings, he states ?I was supposed to go to [place] for a job?. Problem: Known coronary artery disease , autism History: Per patient I have considered the following differential diagnoses: Malingering, secondary gain, ACS, atypical chest pain, costochondritis, chest wall strain Plan: ACS was considered, the patient does have known coronary artery disease, screening labs including cardiac enzymes chest x-ray and EKG were obtained. The patient has been actively asking for pain medication, he has anaphylactic allergies to every cardiac related medication that we would typically give per ACS protocol. I ordered a dose of a muscle relaxant. Thought about costochondritis, however the patient has not had preceding viral syndrome. Thought about chest wall strain, however the patient has no mechanism of injury. When I discussed results with the patient, indicating that his cardiac workup was negative, he begins to discuss how depressed he was. He is now verbalizing thoughts of self-harm, without a plan. We will have to refer him to the care team. I have independently reviewed the following tests: Labs: No leukocytosis, not anemic, no electrolyte abnormality, troponin negative x2 EKG: Sinus tachycardia rate of 102, no ischemic changes no ectopy, QTC 445 Chest x-ray:MPRESSION: Mild bibasilar atelectasis and/or pneumonitis. This document has been electronically signed by: Pedro Wray MD on 06/02/2024 23:44:32 Lab Data 06/02/24 22:20 06/02/24 22:21 Labs: Lab Results 06/02/24 06/02/24 06/02/24 Range/Units 22:20 22:21 22:32 WBC 6.9 (4.8-10.8) X10*3/uL RBC 4.29 L (4.60-5.80) X10*6/uL Hgb 10.2 L (14.0-18.0) g/dl Hct 32.0 L (42.0-52.0) % MCV 74.6 L (80.0-98.0) fL MCH 23.8 L (27.0-33.0) pg MCHC 31.9 (31.0-36.0) g/dl RDW 16.3 H (11.0-16.0) % Plt Count 360 (160-400) X10*3/uL MPV 9.0 L (9.4-12.4) fL Immature Gran % (Auto) 0.3 (0.0-0.4) % Neut % (Auto) 56.5 (45-73) % Lymph % (Auto) 29.0 (20-40) % [place] % (Auto) 11.8 H (2-11) % Eos % (Auto) 2.0 (0-4) % Baso % (Auto) 0.4 (0-2) % Lymph # (Auto) 2.0 (1.2-4.9) X10*3/uL [place] # (Auto) 0.8 (0.1-1.2) X10*3/uL Eos # (Auto) 0.1 (0.0-0.4) X10*3/uL Baso # (Auto) 0.0 (0.0-0.2) X10*3/uL Abs Immat Gran (auto) 0.02 (0.00-0.03) X10*3/uL Absolute Neuts (auto) 3.9 (2.0-8.3) x10*3/uL Absolute Nucleated RBC 0.000 (0.0-0.012) X10*3/uL Nucleated RBC % (auto) 0.0 (0.0-0.2) /100WBC PT 12.9 H (10.9-12.4) SEC INR 1.1 (0.9-1.1) Sodium 140 (135-145) mmol/L Potassium 3.9 (3.3-5.1) mmol/L Chloride 110 H (96-108) mmol/L Carbon Dioxide 19 L (22-29) mmol/L Anion Gap 15 (12-20) BUN 14 (9-16) mg/dL Creatinine 0.82 (0.5-1.4) mg/dL Estim Creat Clear Calc 154.7 Estimated GFR > 60 POC Glucose (60-115) mg/dL Random Glucose 90 (60-115) mg/dL Calcium 8.7 D (8.4-10.2) mg/dL Troponin I High Sens < 2.7 (<3.5-35.0) ng/L Urine Color Yellow Urine Appearance Clear Urine pH 5.5 (5.0-9.0) Ur Specific [place] 1.020 (1.005-1.025) Urine Protein Negative (Neg-Trace) mg/dL Urine Glucose (UA) Negative (Negative) mg/dL Urine Ketones Negative (Negative) mg/dL Urine Blood Negative (Negative) Urine Nitrite Negative (Negative) Ur Leukocyte Esterase Negative (Negative) Urine Opiates Screen POSITIVE H (Not Detect) Ur Buprenorphine Scrn Not Detected (Not Detect) ng/mL Ur Oxycodone Screen Not Detected (Not Detect) ng/mL Urine Methadone Screen Not Detected (Not Detect) ng/mL Urine Fentanyl Screen POSITIVE H (Not Detect) Ur Barbiturates Screen Not Detected (Not Detect) Ur Phencyclidine Scrn Not Detected (Not Detect) Ur Amphetamines Screen Not Detected (Not Detect) U Benzodiazepines Scrn Not Detected (Not Detect) Urine Cocaine Screen Not Detected (Not Detect) U Marijuana (THC) Screen Not Detected (Not Detect) COVID-19 (CICI) (Negative) COVID-19 Clin Com 06/02/24 06/03/24 06/03/24 Range/Units 23:31 10:07 17:21 WBC (4.8-10.8) X10*3/uL RBC (4.60-5.80) X10*6/uL Hgb (14.0-18.0) g/dl Hct (42.0-52.0) % MCV (80.0-98.0) fL MCH (27.0-33.0) pg MCHC (31.0-36.0) g/dl RDW (11.0-16.0) % Plt Count (160-400) X10*3/uL MPV (9.4-12.4) fL Immature Gran % (Auto) (0.0-0.4) % Neut % (Auto) (45-73) % Lymph % (Auto) (20-40) % [place] % (Auto) (2-11) % Eos % (Auto) (0-4) % Baso % (Auto) (0-2) % Lymph # (Auto) (1.2-4.9) X10*3/uL [place] # (Auto) (0.1-1.2) X10*3/uL Eos # (Auto) (0.0-0.4) X10*3/uL Baso # (Auto) (0.0-0.2) X10*3/uL Abs Immat Gran (auto) (0.00-0.03) X10*3/uL Absolute Neuts (auto) (2.0-8.3) x10*3/uL Absolute Nucleated RBC (0.0-0.012) X10*3/uL Nucleated RBC % (auto) (0.0-0.2) /100WBC PT (10.9-12.4) SEC INR (0.9-1.1) Sodium (135-145) mmol/L Potassium (3.3-5.1) mmol/L Chloride (96-108) mmol/L Carbon Dioxide (22-29) mmol/L Anion Gap (12-20) BUN (9-16) mg/dL Creatinine (0.5-1.4) mg/dL Estim Creat Clear Calc Estimated GFR POC Glucose 157 H (60-115) mg/dL Random Glucose (60-115) mg/dL Calcium (8.4-10.2) mg/dL Troponin I High Sens < 2.7 (<3.5-35.0) ng/L Urine Color Urine Appearance Urine pH (5.0-9.0) Ur Specific [place] (1.005-1.025) Urine Protein (Neg-Trace) mg/dL Urine Glucose (UA) (Negative) mg/dL Urine Ketones (Negative) mg/dL Urine Blood (Negative) Urine Nitrite (Negative) Ur Leukocyte Esterase (Negative) Urine Opiates Screen (Not Detect) Ur Buprenorphine Scrn (Not Detect) ng/mL Ur Oxycodone Screen (Not Detect) ng/mL Urine Methadone Screen (Not Detect) ng/mL Urine Fentanyl Screen (Not Detect) Ur Barbiturates Screen (Not Detect) Ur Phencyclidine Scrn (Not Detect) Ur Amphetamines Screen (Not Detect) U Benzodiazepines Scrn (Not Detect) Urine Cocaine Screen (Not Detect) U Marijuana (THC) Screen (Not Detect) COVID-19 (CICI) Negative (Negative) COVID-19 Clin Com See Note Discharge Plan Discharge Clinical Impression: Malingering, Atypical chest pain, Suicidal ideation Patient Disposition: Home, Self-Care Instructions: Anxiety (ED) Prescriptions: No Action tamsulosin 0.4 mg Capsule 0.4 mg PO BEDTIME Qty: 30 0RF ferrous sulfate 324 mg (65 mg iron) Tablet,Delayed Release (Dr/Ec) 324 mg PO DAILY Qty: 30 0RF sertraline 100 mg Tablet 100 mg PO DAILY Qty: 30 0RF melatonin 3 mg Tablet 3 mg PO BEDTIME Qty: 30 0RF lamotrigine 25 mg Tablet 25 mg PO BEDTIME Qty: 30 0RF furosemide 20 mg Tablet 20 mg PO DAILY Qty: 14 0RF Protocol: Hold for SBP< HOLD for SBP < : 90 aripiprazole 10 mg Tablet 10 mg PO DAILY Qty: 30 0RF multivitamin [Daily-Marck] Tablet 1 tab PO DAILY Qty: 30 0RF lidocaine [Lidocaine Pain Relief] 4 % Adhesive Patch,Medicated 1 patch transdermal DAILY Qty: 30 0RF Protocol: Apply to: Apply to: affected area cholecalciferol (vitamin D3) [Vitamin D3] 10 mcg (400 unit) Tablet 10 mcg PO DAILY Qty: 30 0RF thiamine mononitrate (vit B1) 100 mg Tablet 100 mg PO DAILY Qty: 30 0RF quetiapine [Seroquel] 200 mg tablet 200 mg PO BEDTIME Qty: 30 0RF Rx Instructions: 500 mg HS quetiapine [Seroquel] 300 mg tablet 300 mg PO BEDTIME Qty: 30 0RF Rx Instructions: 500 mg HS atorvastatin 40 mg tablet 80 mg PO BEDTIME Qty: 60 0RF metformin 500 mg Tablet 500 mg PO BID@0800,1700 Qty: 28 0RF clopidogrel 75 mg Tablet 75 mg PO DAILY Qty: 14 0RF levothyroxine 25 mcg Tablet 25 mcg PO DAILY@0600 Qty: 14 0RF pantoprazole 40 mg tablet,delayed release (DR/EC) 40 mg PO DAILY Qty: 14 0RF gabapentin 300 mg capsule 300 mg PO BID Qty: 60 0RF lisinopril 5 mg tablet 5 mg PO DAILY Qty: 15 0RF bupropion HCl 300 mg Tablet Extended Release 24 Hr 300 mg PO DAILY Qty: 30 0RF metoprolol tartrate 25 mg tablet 12.5 mg PO DAILY Qty: 7 0RF Protocol: Hold for SBP/HR < HOLD for SBP < : 90 HOLD for HR < : 60 Xarelto 20 mg Tablet 20 mg PO DAILY@1700 Qty: 14 0RF Print Language: Bruneian
[2024-06-03] MEDS: Metoprolol Tartrate 12.5 MG HALFTAB PO (09:13)
[2024-06-03] MEDS: buPROPion HCl XL 300 MG TAB.ER.24H PO (09:13)
[2024-06-03] MEDS: ARIPiprazole 10 MG TABLET PO (09:13)
[2024-06-03] MEDS: Lidocaine 4 % Patch ADH..PATCH 1 PATCH TRANSDERMA (09:13)
[2024-06-03] MEDS: Sertraline HCL 100 MG TABLET PO (09:13)
[2024-06-03] MEDS: Pantoprazole Sodium 20 MG TABLET.DR 40 MG PO (09:14)
[2024-06-03] MEDS: Gabapentin 300 MG CAPSULE PO ×2 (09:14→20:26)
[2024-06-03] MEDS: Ferrous Sulfate 324 MG TABLET.DR PO (09:14)
[2024-06-03] MEDS: Levothyroxine Sodium 25 MCG TABLET PO (09:14)
[2024-06-03] MEDS: Furosemide 20 MG TABLET PO (09:14)
[2024-06-03] MEDS: Clopidogrel Bisulfate 75 MG TABLET PO (09:14)
[2024-06-03] MEDS: lisinopriL 5 MG TABLET PO (09:15)
[2024-06-03] MEDS: metFORMIN HCl 500 MG TABLET PO ×2 (09:15→17:24)
[2024-06-03] MEDS: Multivitamin TABLET 1 TAB PO (09:15)
[2024-06-03] MEDS: Thiamine HCL 100 MG TABLET PO (09:15)
[2024-06-03 10:32] LABS: COVID-19 Test Negative (Negative); IDNOW Serial# 08D9AD1C
--- NOTE | 2024-06-03 11:24 | MHC.CARE ---
Addendum entered by Akiko Redman LCSW 06/03/24 16:19: Pt also referred to [facility], [facility] and [facility] during first shift. No bed availability today. [facility] does anticipate bed availability on 06/04 and CARE team will f/u on this. [facility], [facility], [facility] recommenced that CARE team f/u on 06/04 regarding bed availability. Original Note: Pt has been referred to [facility]
[2024-06-03 14:57] VITALS: BP 132/74; PULSE 69; RESP 18; TEMP 37.2; O2SAT 96
[2024-06-03 17:24] LABS: Glucose, Whole Blood 157 mg/dL (60-115)
[2024-06-03] MEDS: Rivaroxaban 20 MG TABLET PO (17:27)
--- NOTE | 2024-06-04 04:41 | PC.NURSE ---
Patient presents from room to nurses station complaining of chest pain. Will notify MD and obtain vital signs. Patient describes the pain as two elephants sitting on his chest with pain that radiates down the left arm and into the jaw.
[2024-06-04 04:43] VITALS: BP 141/72; PULSE 84; RESP 16; TEMP 36.6; O2SAT 96
--- NOTE | 2024-06-04 04:46 | ECG_ITS ---
Test Reason : cp Blood Pressure : */* mmHG Vent. Rate : 86 BPM Atrial Rate : 86 BPM P-R Int : 178 ms QRS Dur : 96 ms QT Int : 366 ms P-R-T Axes : 41 38 46 degrees QTcB Int : 437 ms Normal sinus rhythm Normal ECG When compared with ECG of 02-Jun-2024 21:47, No significant change was found Referred By: Sarabjit Pearl Electronically Signed By: Xander Pavon
--- NOTE | 2024-06-04 04:46 | PC.NURSE ---
EKG ordered in relation to previous note of patient complaints of chest pain
[2024-06-04] MEDS: Levothyroxine Sodium 25 MCG TABLET PO (05:30)
[2024-06-04] MEDS: Pantoprazole Sodium 20 MG TABLET.DR 40 MG PO (05:34)
--- NOTE | 2024-06-04 07:20 | PC.NURSE ---
Assumed care of patient at 0645, patient appears to be in no apparent distress, calm and cooperative, offering no complaints to this RN. Continue plan of care for respite bedsearch
[2024-06-04 07:57] VITALS: BP 138/82; PULSE 98; RESP 18; TEMP 37; O2SAT 97
[2024-06-04 08:04] VITALS: BP 138/92
[2024-06-04] MEDS: Metoprolol Tartrate 12.5 MG HALFTAB PO (08:04)
[2024-06-04] MEDS: Furosemide 20 MG TABLET PO (08:04)
[2024-06-04] MEDS: Gabapentin 300 MG CAPSULE PO (08:04)
[2024-06-04] MEDS: Ferrous Sulfate 324 MG TABLET.DR PO (08:04)
[2024-06-04] MEDS: metFORMIN HCl 500 MG TABLET PO (08:04)
[2024-06-04] MEDS: Clopidogrel Bisulfate 75 MG TABLET PO (08:04)
[2024-06-04] MEDS: Sertraline HCL 100 MG TABLET PO (08:04)
[2024-06-04] MEDS: ARIPiprazole 10 MG TABLET PO (08:04)
[2024-06-04] MEDS: lisinopriL 5 MG TABLET PO (08:04)
[2024-06-04] MEDS: Multivitamin TABLET 1 TAB PO (08:04)
[2024-06-04] MEDS: buPROPion HCl XL 300 MG TAB.ER.24H PO (08:04)
[2024-06-04] MEDS: Thiamine HCL 100 MG TABLET PO (08:05)
--- NOTE | 2024-06-04 15:15 | PC.NURSE ---
Assumed care of this patient at 1500, patient watching tv/ walking around unit, no signs of distress at this time, plan for lyft to Respite care at 1600. Provider Dr. Espinoza aware, no discharge in yet.
[2024-06-04 15:34] VITALS: BP 124/78; PULSE 85; RESP 16; TEMP 36.6; O2SAT 97
[2024-06-04 16:16] VITALS: BP 124/78; PULSE 85; RESP 16; TEMP 36.6; O2SAT 97
== END 2024-06-04 16:17 | disposition home or self-care (01) ==
PROVIDERS: Physician Assistant Medical; Emergency Provider Internal Medicine
DX: R45.851 Suicidal ideations (principal); R07.89 Other chest pain; Z76.5 Malingerer [conscious simulation]; F19.10 Other psychoactive substance abuse, uncomplicated; R00.0 Tachycardia, unspecified; F31.9 Bipolar disorder, unspecified; F84.0 Autistic disorder; F43.10 Post-traumatic stress disorder, unspecified; F39 Unspecified mood [affective] disorder; Z11.52 Encounter for screening for COVID-19; E11.9 Type 2 diabetes mellitus without complications; I10 Essential (primary) hypertension; E78.5 Hyperlipidemia, unspecified; E03.9 Hypothyroidism, unspecified; Z86.711 Personal history of pulmonary embolism; Z79.01 Long term (current) use of anticoagulants; Z79.84 Long term (current) use of oral hypoglycemic drugs; Z79.899 Other long term (current) drug therapy
CPT/HCPCS: 36415; 71045; 80048; 80307; 81003; 82947; 84484; 85025; 85610; 87635; 93005; 99285; S9485

== ENCOUNTER → 2024-06-02 21:43 | Outpatient (BNV) | payer OTHER, SELFPAY | PROVIDERS: Emergency Provider Internal Medicine; Visit Provider Internal Medicine | DX: R07.9 Chest pain, unspecified (principal); R00.0 Tachycardia, unspecified | CPT/HCPCS: 93010 ==

== ENCOUNTER → 2024-06-02 23:19 | Outpatient (BNV) | payer MEDICARE, MEDICAID, SELFPAY | PROVIDERS: Emergency Provider Internal Medicine; Visit Provider Radiology Neuroradiology | DX: R07.9 Chest pain, unspecified (principal) | CPT/HCPCS: 71045 ==

== ENCOUNTER → 2024-06-04 04:46 | Outpatient (BNV) | payer OTHER, SELFPAY | PROVIDERS: Emergency Provider Internal Medicine; Visit Provider Internal Medicine Cardiovascular Disease | DX: R07.9 Chest pain, unspecified (principal) | CPT/HCPCS: 93010 ==

== ENCOUNTER 2024-07-12 22:01 | Emergency (ER) | payer OTHER, SELFPAY ==
--- NOTE | 2024-07-12 | ECG_ITS ---
Test Reason : CP Blood Pressure : */* mmHG Vent. Rate : 82 BPM Atrial Rate : 82 BPM P-R Int : 194 ms QRS Dur : 94 ms QT Int : 372 ms P-R-T Axes : 34 18 42 degrees QTcB Int : 434 ms Normal sinus rhythm Normal ECG When compared with ECG of 04-Jun-2024 04:51, No significant change was found Referred By: Generic ED Physician Electronically Signed By: NORM BOWERS
[2024-07-12 22:13] VITALS: BP 116/75; PULSE 64; O2SAT 97
[2024-07-12 22:14] VITALS: BP 136/79; PULSE 78; RESP 18; TEMP 36.7; O2SAT 97; BMI 37.3
--- NOTE | 2024-07-12 22:21 | ED_ITS ---
HPI - Chest Pain General Chief Complaint: Chest Pain Stated Complaint: cp x4 12 leads non diagnostic Time Seen by Provider: 07/12/24 22:13 Source: patient Mode of arrival: EMS Limitations: no limitations History of Present Illness ED Provider: HPI narrative: Patient is 48 years old with past medical history of mood disorder PTSD depression autism hypothyroidism PE on Xarelto coronary artery disease [place] in 2008 been to hospital multiple times for chest pain which is going on for a while according to patient's chest pain is happening every day patient was admitted here on 05/31/2024 for the similar complaints comes here as been having chest pain for last few days almost daily and today also pain started at 17:00 patient's looks relax not in any distress no shortness a breath no diaphoresis no radiation of the pain Related Data Previous Rx's ?Medication ?Instructions ?Recorded aripiprazole 10 mg tablet 10 mg PO DAILY #30 tabs 06/02/24 atorvastatin 40 mg tablet 80 mg (2 x 40 mg) PO BEDTIME #60 06/02/24 tabs bupropion HCl 300 mg 24 hr tablet, 300 mg PO DAILY #30 tabs 06/02/24 extended release cholecalciferol (vitamin D3) 10 10 mcg PO DAILY #30 tabs 06/02/24 mcg (400 unit) tablet (Vitamin D3) clopidogrel 75 mg tablet 75 mg PO DAILY #14 tabs 06/02/24 ferrous sulfate 324 mg (65 mg 324 mg PO DAILY #30 tabs 06/02/24 iron) tablet,delayed release furosemide 20 mg tablet 20 mg PO DAILY #14 tabs 06/02/24 gabapentin 300 mg capsule 300 mg PO BID #60 caps 06/02/24 lamotrigine 25 mg tablet 25 mg PO BEDTIME #30 tabs 06/02/24 levothyroxine 25 mcg tablet 25 mcg PO DAILY@0600 #14 tabs 06/02/24 lidocaine 4 % topical patch 1 patch transdermal DAILY #30 ea 06/02/24 (Lidocaine Pain Relief) lisinopril 5 mg tablet 5 mg PO DAILY #15 tabs 06/02/24 melatonin 3 mg tablet 3 mg PO BEDTIME #30 tabs 06/02/24 metformin 500 mg tablet 500 mg PO BID@0800,1700 #28 tabs 06/02/24 metoprolol tartrate 25 mg tablet 12.5 mg PO DAILY #7 tabs 06/02/24 multivitamin (Daily-Marck tablet) 1 tab PO DAILY #30 tabs 06/02/24 pantoprazole 40 mg tablet,delayed 40 mg PO DAILY #14 tabs 06/02/24 release quetiapine 200 mg tablet (Seroquel) 200 mg PO BEDTIME #30 tabs 06/02/24 quetiapine 300 mg tablet (Seroquel) 300 mg PO BEDTIME #30 tabs 06/02/24 rivaroxaban 20 mg tablet (Xarelto) 20 mg PO DAILY@1700 #14 tabs 06/02/24 sertraline 100 mg tablet 100 mg PO DAILY #30 tabs 06/02/24 tamsulosin 0.4 mg capsule 0.4 mg PO BEDTIME #30 caps 06/02/24 thiamine mononitrate (vit B1) 100 100 mg PO DAILY #30 tabs 06/02/24 mg tablet Allergies Allergy/AdvReac Type Severity Reaction Status Date / Time acetaminophen [From TYLENOL] Allergy Severe ANAPHYLAXIS Verified 07/12/24 22:17 aspirin [ASA] Allergy Severe ANAPHYLAXIS Verified 07/12/24 22:17 nitroglycerin [NITROGLYCERIN] Allergy Severe ANAPHYLAXIS Verified 07/12/24 22:17 amoxicillin [AMOXICILLIN] Allergy Mild RASH Verified 07/12/24 22:17 fish derived [fish] Allergy Anaphylaxis Verified 07/12/24 22:17 ibuprofen Allergy Anaphylaxis Verified 07/12/24 22:17 Poultry Allergy Anaphylaxis Verified 07/12/24 22:17 Review of Systems 2 Review of Systems: Yes all other systems are reviewed and are negative PMF Past Medical History Medical History Bipolar disorder Mood disorder PTSD (post-traumatic stress disorder) Depression History of pulmonary embolism BPH (benign prostatic hyperplasia) Diabetes Obesity Hypothyroid HLD (hyperlipidemia) CAD (coronary artery disease) Surgical History History of coronary artery stent placement Social History Social History Household Members: None Housing: Homeless Do you presently have visiting nurse or other home services: No Alcohol intake: never Patient Tobacco Use Status: Never used Tobacco Smoked in Last 30 Days: No e-Cigarette/Vaping Use: Never Used Second Hand Smoke Exposure: No Use of substances other than those prescribed or required for medical reasons: No Advance Directives: No Advance Directives Information Provided: No Do you have a plan to hurt others: No Plan service: No Current occupational status: unemployed Sexual orientation: Straight/Heterosexual Physical Exam 2 Vital Signs: Vital Signs: Last Vital Signs Temp 98.0 F 07/12/24 22:14 Pulse 78 07/12/24 22:14 Resp 18 07/12/24 22:14 BP 136/79 07/12/24 22:14 Pulse Ox 97 07/12/24 22:14 O2 Del Method Room Air 07/12/24 22:14 BMI result Body Mass Index 37.3 Appearance: Alert. Oriented X3. No acute distress. Anxious Eyes: No pallor or icterus ENT: Pharynx normal. Oral Mucosa moist Neck: Normal inspection. Neck supple. CVS: Normal heart rate and rhythm. Pulses normal. Respiratory: No respiratory distress. Equal air entry bilateral, no wheezing/rales/rhonchi Abdomen: Soft and nontender. Bowel sounds are present, no mass palpable, no CVA tenderness Skin: Skin warm and dry. Normal skin color. Normal skin turgor. Extremities: No lower extremity edema. No calf tenderness Neuro: Oriented X 3. No motor deficit. No sensory deficit.No cerebellar signs , cranial nerves II-XII intact Medications Administered Discontinued Medications Generic Name Dose Route Start Last Admin Trade Name Freq PRN Reason Stop Dose Admin Lorazepam 2 mg 07/12/24 22:26 07/12/24 22:35 Lorazepam 1 Mg Tablet PO 07/12/24 22:27 2 mg ONCE ONE Administration Medical Decision Making Medical Decision Making [facility] Narrative: Patient has atypical chest pain almost every day with in anxiety and mood disorder comes here with similar pain EKG without any ischemic changes will check for the cardiac enzymes Patient without any ischemic changes cardiac enzymes negative for pain which is happening every day with similar presentation in the ER in the past Differential Diagnosis Differential Diagnoses: The differential diagnosis associated with the presentation includes ACS/musculoskeletal/anxiety Lab Data [facility] Lab Attestation statement: I reviewed the patient's lab results. 07/12/24 22:29 07/12/24 22:29 Labs: Lab Results 07/12/24 Range/Units 22:29 WBC 4.9 (4.8-10.8) X10*3/uL RBC 4.17 L (4.60-5.80) X10*6/uL Hgb 10.0 L (14.0-18.0) g/dl Hct 30.8 L (42.0-52.0) % MCV 73.9 L (80.0-98.0) fL MCH 24.0 L (27.0-33.0) pg MCHC 32.5 (31.0-36.0) g/dl RDW 19.4 H (11.0-16.0) % Plt Count 302 (160-400) X10*3/uL MPV 9.6 (9.4-12.4) fL Immature Gran % (Auto) 0.4 (0.0-0.4) % Neut % (Auto) 51.6 (45-73) % Lymph % (Auto) 31.7 (20-40) % [place] % (Auto) 12.8 H (2-11) % Eos % (Auto) 3.1 (0-4) % Baso % (Auto) 0.4 (0-2) % Lymph # (Auto) 1.5 (1.2-4.9) X10*3/uL [place] # (Auto) 0.6 (0.1-1.2) X10*3/uL Eos # (Auto) 0.2 (0.0-0.4) X10*3/uL Baso # (Auto) 0.0 (0.0-0.2) X10*3/uL Abs Immat Gran (auto) 0.02 (0.00-0.03) X10*3/uL Absolute Neuts (auto) 2.5 (2.0-8.3) x10*3/uL Absolute Nucleated RBC 0.000 (0.0-0.012) X10*3/uL Nucleated RBC % (auto) 0.0 (0.0-0.2) /100WBC Sodium 139 (135-145) mmol/L Potassium 4.2 (3.3-5.1) mmol/L Chloride 112 H (96-108) mmol/L Carbon Dioxide 21 L (22-29) mmol/L Anion Gap 10 L (12-20) BUN 13 (9-16) mg/dL Creatinine 0.64 (0.5-1.4) mg/dL Estim Creat Clear Calc 183.6 Estimated GFR > 60 Random Glucose 110 (60-115) mg/dL Calcium 8.6 (8.4-10.2) mg/dL Total Bilirubin 0.2 (0.0-1.0) mg/dL AST 19 (5-37) U/L ALT 16 (0-40) U/L Alkaline Phosphatase 81 (39-117) U/L Troponin I High Sens < 2.7 (<3.5-35.0) ng/L Total Protein 6.3 L (6.5-8.0) g/dL Albumin 3.7 (3.5-5.0) g/dL Independent Interpretation I performed an independent interpretation of an: EKG Interpretation: Normal sinus rhythm heart rate 82 beats per minute normal intervals normal axis no acute STT wave changes no acute ischemia Discharge Plan Discharge Clinical Impression: Atypical chest pain, Anxiety Patient Disposition: Home, Self-Care Instructions: Chest Pain (ED), Anxiety (ED) Additional Instructions: Your chest pain is unlikely from the heart Likely musculoskeletal/anxiety Take medication as prescribed by your physician Prescriptions: No Action tamsulosin 0.4 mg Capsule 0.4 mg PO BEDTIME Qty: 30 0RF ferrous sulfate 324 mg (65 mg iron) Tablet,Delayed Release (Dr/Ec) 324 mg PO DAILY Qty: 30 0RF sertraline 100 mg Tablet 100 mg PO DAILY Qty: 30 0RF melatonin 3 mg Tablet 3 mg PO BEDTIME Qty: 30 0RF lamotrigine 25 mg Tablet 25 mg PO BEDTIME Qty: 30 0RF furosemide 20 mg Tablet 20 mg PO DAILY Qty: 14 0RF Protocol: Hold for SBP< HOLD for SBP < : 90 aripiprazole 10 mg Tablet 10 mg PO DAILY Qty: 30 0RF multivitamin [Daily-Marck] Tablet 1 tab PO DAILY Qty: 30 0RF lidocaine [Lidocaine Pain Relief] 4 % Adhesive Patch,Medicated 1 patch transdermal DAILY Qty: 30 0RF Protocol: Apply to: Apply to: affected area cholecalciferol (vitamin D3) [Vitamin D3] 10 mcg (400 unit) Tablet 10 mcg PO DAILY Qty: 30 0RF thiamine mononitrate (vit B1) 100 mg Tablet 100 mg PO DAILY Qty: 30 0RF quetiapine [Seroquel] 200 mg tablet 200 mg PO BEDTIME Qty: 30 0RF Rx Instructions: 500 mg HS quetiapine [Seroquel] 300 mg tablet 300 mg PO BEDTIME Qty: 30 0RF Rx Instructions: 500 mg HS atorvastatin 40 mg tablet 80 mg PO BEDTIME Qty: 60 0RF metformin 500 mg Tablet 500 mg PO BID@0800,1700 Qty: 28 0RF clopidogrel 75 mg Tablet 75 mg PO DAILY Qty: 14 0RF levothyroxine 25 mcg Tablet 25 mcg PO DAILY@0600 Qty: 14 0RF pantoprazole 40 mg tablet,delayed release (DR/EC) 40 mg PO DAILY Qty: 14 0RF gabapentin 300 mg capsule 300 mg PO BID Qty: 60 0RF lisinopril 5 mg tablet 5 mg PO DAILY Qty: 15 0RF bupropion HCl 300 mg Tablet Extended Release 24 Hr 300 mg PO DAILY Qty: 30 0RF metoprolol tartrate 25 mg tablet 12.5 mg PO DAILY Qty: 7 0RF Protocol: Hold for SBP/HR < HOLD for SBP < : 90 HOLD for HR < : 60 Xarelto 20 mg Tablet 20 mg PO DAILY@1700 Qty: 14 0RF Print Language: Dutch
[2024-07-12 22:35] LABS: MANUAL DIFF FLAG NO
[2024-07-12] MEDS: LORazepam 1 MG TABLET 2 MG PO (22:35)
[2024-07-12 22:36] LABS: Basophils Percent Auto 0.4 % (0-2); Eosinophils Absolute Auto 0.2 X10*3/uL (0.0-0.4); Eosinophils Percent Auto 3.1 % (0-4); Hematocrit 30.8 % (42.0-52.0); Imm Gran Abs Auto 0.02 X10*3/uL (0.00-0.03); Imm Gran Pct Auto 0.4 % (0.0-0.4); Lymphocytes Absolute Auto 1.5 X10*3/uL (1.2-4.9); Lymphocytes Percent Auto 31.7 % (20-40); Mean Corpuscular HGB Conc 32.5 g/dl (31.0-36.0); Mean Corpuscular Volume 73.9 fL (80.0-98.0); Mean Platelet Volume 9.6 fL (9.4-12.4); Monocytes Absolute Auto 0.6 X10*3/uL (0.1-1.2); Monocytes Percent Auto 12.8 % (2-11); Neutrophils Absolute Auto 2.5 x10*3/uL (2.0-8.3); Neutrophils Percent Auto 51.6 % (45-73); Platelet Count 302 X10*3/uL (160-400); Red Blood Count 4.17 X10*6/uL (4.60-5.80); Red Cell Distribution Width 19.4 % (11.0-16.0); White Blood Count 4.9 X10*3/uL (4.8-10.8)
[2024-07-12 22:50] LABS: Alanine Aminotransferase 16 U/L (0-40); Albumin Level 3.7 g/dL (3.5-5.0); Alkaline Phosphatase 81 U/L (39-117); Anion Gap 10 (12-20); Aspartate Amino Transferase 19 U/L (5-37); Bilirubin Total 0.2 mg/dL (0.0-1.0); Blood Urea Nitrogen 13 mg/dL (9-16); Calcium 8.6 mg/dL (8.4-10.2); Carbon Dioxide 21 mmol/L (22-29); Chloride 112 mmol/L (96-108); Creatinine Clr Calc Pharmacy 183.6; Estimated Glomerular Filt Rate > 60; Glucose Random 110 mg/dL (60-115); Potassium 4.2 mmol/L (3.3-5.1); Sodium 139 mmol/L (135-145); Total Protein 6.3 g/dL (6.5-8.0)
--- OUTSIDE RECORDS SUMMARY | 2024-07-12 22:52 | XMS_ITS | Patient Health Record ---
Author Organization [facility] Address [address] [place] [address] Care Team Providers Care Special Population Paraprofessional Name Role Phone Jus Avery Unavailable [phone] Reason For Referral No Information Encounters Encounter Location Date Provider Diagnosis [facility] [id number] [place] [id number] 07/18/2023 Jus Avery [facility] [address] [place] [address] 10/04/2023 Jus Avery Plan Of Treatment No Information Insurance Providers Payer Name Payer Address Payer Phone Subscriber Number Group Number Insured Name Patient Relationship to Insured Coverage Start Date Coverage End Date [facility] [address] [place] [address] [id number] Charlie Rios Self - patient is the insured
--- OUTSIDE RECORDS SUMMARY | 2024-07-12 22:52 | XMS_ITS | Encounter Summary ---
Author Organization [facility] Address [address] [place] [address] Care Team Providers Care Supervisor Contingents Name Role Phone South Khanna MD Primary Care Provider [phone] Reason for Visit * Reason Comments Hospital F/U Encounter Details Date Type Department Care Team ([facility] st Contact Info) Description 01/31/2019 Telephone [facility] Primary Care Internal Medicine [address] [place] [address] [address] [place] [address] South Khanna MD [facility] [address] [place] [id number] Hospital F/U Social History Tobacco Use Types [...] AM EDT Please get ER Notes from [facility] for PCP to advise on hospital [...] at . Any insurance accepted. Quit smoking resources-http://[email or web address] Power.org HEMOGLOBIN A1C % < 7 Result Component [...] documented as of this encounter Care Teams Supervisor Contingents Relationship Specialty Start Date End Date South Khanna MD PCP - General Internal Medicine 12/18/18 10/02/19 documented as of this encounter
--- OUTSIDE RECORDS SUMMARY | 2024-07-12 22:52 | XMS_ITS | Referral Summary ---
Author Organization [facility] Address [address] [place] [address] Care Team Providers Care Hims Coder Name Role Phone Provider, Generic External Data [...] Plan of Treatment Not on file Insurance [facility] STAND[facility] Care Teams Hims Coder Relationship Specialty Start Date End Date Provider, Generic External Data 0 PCP - General 03/22/20
--- OUTSIDE RECORDS SUMMARY | 2024-07-12 22:52 | XMS_ITS | Encounter Summary ---
Author Organization [facility] Address [address] [place] [address] Care Team Providers Care Safemaker Name Role Phone None, Pcp Primary Care Provider Unavailabl e None, Pcp Unavailable Unavailable South Khanna MD Primary Care Provider Encounter Details Date Type Department Care Team (Late st Contact Info) Description 08/05/2014 Clinical Conversion Encounter GENERAL CONVERSION Roc Mcintosh MD [address] [place] [address] Social History Tobacco Use Types Packs/Day Years Used Date Smoking Tobacco: Never Assessed Sex and Gender Information Value Date Recorded Sex Assigned at Male 01/14/2019 2:03 PM EDT Legal Sex Male 3:08 PM EDT Gender Identity Male 01/14/2019 2:03 PM EDT Sexual Orientation Not on file documented as of this encounter Consult Notes * Roc Mcintosh MD - 10/26/2014 6:33 AM EDT [facility] Name: [facility] M R # [id number] [facility] : [birth year] Age: 38 Sex: M DIS Shahla CONSULTATION REPORT Location: [facility] Room: [facility] Admit Date: 07/26/14 - 07/29/14 cc: Skye [...] most of the major hospitals in the [place] area reporting variously chest pain, falls, bleeding, and a number of other elements in an attempt to cope and be taking care of. At times, he has outright acknowledged that this is what he does, other times he ____. PAST PSYCHIATRIC HISTORY: The patient has a [facility] returned case inspector, named Toney Astudillo, who we have spoken to in the past, cell phone number ____. He also has a brother named Ronaldo, , who gave me permission to speak with Ronaldo, but not with Toney. His last psychiatric hospitalization was in 2010, at [facility]. At that time, he was diagnosed with [...] according to his brother, he presented to [facility] the day prior to his presentation [...] stance with regard to his reports of [facility] Name: [facility] MR # [id number] CONSULTATION continued Admit Date: 07/26/14 symptoms. At the present time, there is certainly no need for one-to-one observation, there is no need for any change in psychiatric care, and there are no psychiatric contraindications to discharge. Dictated by: Roc Mcintosh M.D. ELECTRONICALLY SIGNED 09/05/14 1152 T: SVETLANA [id number] //ivnm// //add1// //add3// //add2// [id number] documented in this encounter Plan of Treatment Not on file documented as of this encounter Visit Diagnoses Not on filedocumented in this encounter Care Teams Safemaker Relationship Specialty Start Date End Date None, PcpMD PCP - General 07/28/14 01/13/19 South Khanna MD [address] [place] [id number] PCP - General 01/14/19 None, Pcp, 07/28/14 documented as of this encounter
--- OUTSIDE RECORDS SUMMARY | 2024-07-12 22:52 | XMS_ITS | Encounter Summary ---
Author Organization Lizzeth Maier [facility] Address [address] [place] [address] Care Team Providers Care Industrial Gas Servicer Name Role Phone None, Pcp Primary Care Provider Unavailabl e None, Pcp Unavailable Unavailable South Khanna MD Primary Care Provider [phone] Encounter Details Date Type Department Care Team (Late st Contact Info) Description 07/25/2014 Clinical Conversion Encounter GENERAL CONVERSION Mahendra Sánchez MD [address] [place] [id number] Social History Tobacco Use Types Packs/Day Years Used Date Smoking Tobacco: Never Assessed Sex and Gender Information Value Date Recorded Sex Assigned at Male 01/14/2019 2:03 PM EDT Legal Sex Male 3:08 PM EDT Gender Identity Male 01/14/2019 2:03 PM EDT Sexual Orientation Not on file documented as of this encounter H&P Notes * Mahendra Sánchez MD - 10/26/2014 6:33 AM EDT [facility] Name: CHARLIE HAYWOOD [facility] MR # [id number] [facility] : [birth year] Age: 38 Sex: M ADM Shahla HISTORY & PHYSICAL EXAM Location: Room: [facility] Admit Date: 07/25/14 - cc: Skye Marte MD _ DATE OF ADMISSION: 07/25/2014 PRIMARY CARE PHYSICIAN: Michelle Cheung CHIEF COMPLAINT: Chest pain. HISTORY OF PRESENT ILLNESS: The patient is a 38-year-old male. He claims that he has a past medical history of coronary artery disease. He apparently had an IL back in 2008, for which he had 1 stent. He also has had a history of diabetes mellitus, history of borderline personality disorder, depression, and anxiety. He was on his way to his friend here in [place], he was in a train when he started to have chest pain. He got off [place] [id number] as the chest pain got worse. He [...] evaluation. The patient was recently admitted at [facility] in [place] for a similar pain. At that time, they only did an echocardiogram, which was essentially unremarkable, and he was sent home. He told me that apparently he stayed 10 days there. Last February, the patient was also admitted here at [facility], also similar story, he was in the train and developed chest pain. At that time, he was just evaluated with enzymes. 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 The last one reported in December was done at [facility], and it showed apparently nonobstructive coronary artery [...] NITROGLYCERIN; however, from his discharge notes from [facility], they actually put him on aspirin as [...] history of coronary artery disease and had IL back in 2008, for which he had 1 stent. 2. Depression. 3. Borderline personality disorder. 4. Diabetes type 2, on insulin. 5. History of obstructive sleep apnea. PAST SURGICAL HISTORY: He had gastric bypass surgery and he had 1 cardiac [facility] Name: CHARLIE HAYWOOD [facility] MR # [id number] HISTORY & PHYSICAL continued Admit Date: 07/25/14 [...] but from the medication reconciliation sheet from [facility], he was prescribed with aspirin 81 mg [...] oriented x3, in no acute distress. HEENT: Mershon palpebral conjunctivae, anicteric sclerae, moist buccal mucosa. [...] of 67 beats per minute, normal axis. FL, QRS, and QTC are all normal. No [...] observation. The patient already was admitted from [facility] with similar symptoms about 2 weeks ago [...] we need to do any further workup. [facility] Name: CHARLIE HAYWOOD [facility] MR # [id number] HISTORY & PHYSICAL continued Admit Date: 07/25/14 [...] SVETLANA 0125 3 //ivnm// //add1// //add3// //add2// [id number] documented in this encounter Plan of Treatment [...] * POCT Glucose (07/25/2014 10:28 PM EDT) [facility] Glucose, POC 77 74 - 118 CONVERS ION FROM [employer] Comment:Resulted using [employer] POC Software 07/25/2014 10:2 8 PM EDT 07/25/2014 10:37 PM EDT us Dylan Coe MD POCT ORDERABLES - DEVICE Final Result CONVERSION FROM [employer] * ECG 12 lead (07/25/2014 8:39 PM EDT) 07/25/2014 8:39 PM EDT Narrative CONVERSION FROM [employer] - 07/26/2014 10:30 AM EDT [employer]. ?Name: ??CHARLIE HAYWOOD ?MR # ?? [id number] EKG REPORT ? PCP: ??NO MD ?Ord [...] Procedure Note Serafin Alvarez MD - 11/08/2014 [employer] [facility]. Name: CHARLIE HAYWOOD MR # [id number] EKG REPORT PCP: NO MD Baldwin MD: [...] MD ECG ORDERABLES Final Result CONVERSION FROM [employer] * CT Head WO Contrast (07/25/2014 7:47 [...] mild generalized tissue loss. Dylan Coe MD [facility] ORDERABLES Final Result * (ABNORMAL) Hemoglobin and Hematocrit, Blood (07/25/2014 6:50 PM EDT) Hemoglobin 10.8(L) 12.7 - 16.7 g/dl CONVERSION FROM [employer] Hematocrit 34.0(L) 38.1 - 50.1 % CONVERSION FROM [employer] Blood specimen (specimen) 07/25/2014 6:50 PM EDT 07/25/2014 6:53 PM EDT us Dylan Coe MD LAB BLOOD ORDERABLES Final Resu lt Performing Organization Address [facility] de Phone Number CONVERSION FROM [employer] * Troponin T (07/25/2014 6:50 PM EDT) Troponin T < 0.01 <0.03 ng/ml CONVERSION FROM [employer] Comment: Troponin-T: <0.03 ng/ml - Negative 0.03 to 0.09 ng/ml - Indeterminate >0.09 ng/ml - Positive for acute myocardial damage Blood specimen (specimen) 07/25/2014 6:50 PM EDT 07/25/2014 6:53 PM EDT us Dylan Coe MD LAB BLOOD ORDERABLES Final Resu lt Performing Organization Address [facility] de Phone Number CONVERSION FROM [employer] * POCT Glucose (07/25/2014 4:08 PM EDT) Glucose, POC 84 74 - 118 CONVERS ION FROM [employer] Comment:Resulted using [employer] POC Software 07/25/2014 4:08 PM EDT 07/25/2014 4:26 PM EDT us Dylan Coe MD POCT ORDERABLES - DEVICE Final Result Performing Organization Address [facility] de Phone Number CONVERSION FROM [employer] * (ABNORMAL) Hemoglobin and Hematocrit, Blood (07/25/2014 1:12 PM EDT) Hemoglobin 10.7(L) 12.7 - 16.7 g/dl CONVERSION FROM [employer] Hematocrit 34.4(L) 38.1 - 50.1 % CONVERSION FROM [employer] Blood specimen (specimen) 07/25/2014 1:12 PM EDT 07/25/2014 1:59 PM EDT us Dylan Coe MD LAB BLOOD ORDERABLES Final Resu lt Performing Organization Address [facility] Co de Phone Number CONVERSION FROM [employer] * (ABNORMAL) POCT Glucose (07/25/2014 10:48 AM EDT) Glucose, POC 139(H) 74 - 118 CONVERS ION FROM [employer] Comment:Resulted using [employer] POC Software 07/25/2014 10:4 8 AM EDT 07/25/2014 10:57 AM EDT us Dylan Coe MD POCT ORDERABLES - DEVICE Final Result Performing Organization Address [facility] de Phone Number CONVERSION FROM [employer] * Troponin T (07/25/2014 10:00 AM EDT) Troponin T < 0.01 <0.03 ng/ml CONVERSION FROM [employer] Comment: Troponin-T: <0.03 ng/ml - Negative 0.03 to 0.09 ng/ml - Indeterminate >0.09 ng/ml - Positive for acute myocardial damage Blood specimen (specimen) 07/25/2014 10:00 AM EDT 07/25/2014 10:53 AM EDT us Dylan Coe MD LAB BLOOD ORDERABLES Final Resu lt Performing Organization Address [facility] de Phone Number CONVERSION FROM [employer] * POCT Glucose (07/25/2014 7:08 AM EDT) Glucose, POC 83 74 - 118 CONVERS ION FROM [employer] Comment:Resulted using [employer] POC Software 07/25/2014 7:08 AM EDT 07/25/2014 7:15 AM EDT us Dylan Coe MD POCT ORDERABLES - DEVICE Final Result Performing Organization Address City/[facility] de Phone Number CONVERSION FROM [employer] * Troponin T (07/25/2014 2:37 AM EDT) Troponin T < 0.01 <0.03 ng/ml CONVERSION FROM [employer] Comment: Troponin-T: <0.03 ng/ml - Negative 0.03 to 0.09 ng/ml - Indeterminate >0.09 ng/ml - Positive for acute myocardial damage Blood specimen (specimen) 07/25/2014 2:37 AM EDT 07/25/2014 2:37 AM EDT us Dylan Coe MD LAB BLOOD ORDERABLES Final Resu lt CONVERSION FROM [employer] * ECG 12 lead (07/25/2014 2:25 AM EDT) 07/25/2014 2:25 AM EDT Narrative CONVERSION FROM [employer] - 07/25/2014 1:15 PM EDT [employer]. ?Name: ??CHARLIE HAYWOOD ?MR # ?? [id number] EKG REPORT ? PCP: ??NO MD ?Ord [...] Procedure Note Serafin Alvarez MD - 11/08/2014 [facility]. Name: CHARLIE HAYWOOD MR # [id number] EKG REPORT PCP: NO Ord MD:Mahendra Sánchez [...] ECG ORDERABLES Final Resul t CONVERSION FROM [employer] documented in this encounter Visit Diagnoses Not on filedocumented in this encounter Care Teams Industrial Gas Servicer Relationship Specialty Start Date End Date None, PcpMD PCP - General 07/28/14 01/13/19 South Khanna MD [address] [place] [address] PCP - General 01/14/19 None, MD Baldemar 07/28/14 documented as of this encounter
--- OUTSIDE RECORDS SUMMARY | 2024-07-12 22:52 | XMS_ITS ---
Author Name CRISP Organization Unknown Encounters Encounter Type Encounter Reason Primary Diagnosis Location Date Emergency CHEST PAIN Chest pain, unspecified [facility] 01/25/2024 Emergency CP FOR 2 HRS. RADIATES TO RUE. PREVIOUS AK / STENTS. ALLERGIC TO ASA AND NTG Other chest pain [facility] 01/24/2024 Inpatient CHEST PAINS [facility] 10/08/2021 Emergency medical services Palpitations Angina or Ischemic chest pain [facility] 10/07/2021 Emergency Surgical or othe r procedure not carried out because of patient's decision 09/15/2021 Care Team Organization Name Specialty Phone Email Start Date End Da [facility] Primary Care 01/25/2024 02/26/2024 [facility] Department Primary Care [facility] 01/24/2024 [facility] Primary Care 08/09/2022 [facility] 04/09/2022 11/26/2023 [facility] 10/08/2021 10/08/2021 09/15/2021 09/15/2021 [facility] 06/24/2019 06/24/2019 [facility] Provider Non [facility] Primary Care 06/24/20192019 [facility] (No Auditable Contacts or Assets) 06/24/201906/24 [facility] ([facility]) [facility] Primary Care 06/23/2019 0 [facility] ([facility]) NINE [id number] Primary Care 06/23/201906/07 [facility] 06/19/2019 020
--- OUTSIDE RECORDS SUMMARY | 2024-07-12 22:52 | XMS_ITS | Clinical Summary ---
Author Organization Lizzeth Maier [facility] Address [address] [place] [address] Care Team Providers Care Fringing Machine Operator Name Role Phone None, Pcp South Hudson MD Primary Care Provider [phone] Allergies Active Allergy Reactions Criticality Noted Date [...] - 200 mg/dL 10/15/2020 8:10 AM EDT [facility] Triglycerides 170(H) 55 - 150 mg/dL 10/15/2020 8:10 AM EDT [facility] Comment:Use non-HDL choleste rol or Apolipoprotein B to monitor cardiovascular risk and cholesterol-lowering therapy. HDL Cholesterol 29(L) 40 - 65 mg/dL 10/15/2020 8:10 AM EDT [facility] LDL Cholesterol 57 <130 mg/dL 10/15/2020 8:10 AM EDT [facility] Non-HDL Cholesterol 91 <190 mg/dL 10/15/2020 8:10 AM EDT [facility] Comment: Normal primary prevention ?<190 mg/dL High risk primary prevention ?? <160 mg/dL Secondary prevention ? <130 mg/dL High risk secondary prevention <100 mg/dL VLDL Cholesterol 34 8 - 71 mg/dL 10/15/2020 8:10 AM EDT [facility] Ratio Chol/HDL 4.1 2.0 - 5.0 10/15/2020 8:10 AM EDT [facility] [employer] [facility] Patient Fasting 8:10 AM EDT [facility] Blood Venipuncture / Unknown 10/15/2020 6:17 AM EDT 10/15/2020 7:04 AM EDT us Khurram Nunez MD LAB BLOOD ORDERABLES Final Res ult Performing Organization Address City/[facility]/ZIP Co de Phone Number [facility] [address] [place] [address] * Hemoglobin A1C (02/20/2020 6:30 AM EST) Hemoglobin A1C 5.8 4.0 - 6.0 % CONVERSION FROM [employer] Estimated Average Glucose 120 mg/dL CONVERSION F [facility] 02/20/2020 6:30 AM EST 02/20/2020 7:06 AM EST us Larry Houston MD LAB BLOOD ORDERABLES Erica l Result CONVERSION FROM [employer] from Last 3 Months or Most Recently Relevant to Health Maintenance Insurance [facility] [address] [place] [address] SENIOR Advance Directives * Full Code (Latest [...] 11:41 PM 03/16/2016 6:25 PM Care Teams Fringing Machine Operator Relationship Specialty Start Date End Date South Khanna MD [address] [place] [address] PCP - General 01/14/19 None, PcpMD 07/28/14
--- OUTSIDE RECORDS SUMMARY | 2024-07-12 22:52 | XMS_ITS | Encounter Summary ---
Author Organization Lizzeth Esdras Quarleshey [facility] Address [address] [place] [address] Care Team Providers Care Store Sales Consultant Name Role Phone None, Pcp Primary Care Provider Unavailabl e None, Pcp Unavailable Unavailable South Khanna MD Primary Care Provider [phone] Encounter Details Date Type Department Care Team (Late st Contact Info) Description 02/27/2014 Clinical Conversion Encounter GENERAL CONVERSION Jai Tejeda MD [address] [place] [address] Social History Tobacco Use Types Packs/Day Years Used Date Smoking Tobacco: Never Assessed Sex and Gender Information Value Date Recorded Sex Assigned at Male 01/14/2019 2:03 PM EDT Legal Sex Male 3:08 PM EDT Gender Identity Male 01/14/2019 2:03 PM EDT Sexual Orientation Not on file documented as of this encounter Discharge Summaries * Jai Tejeda MD - 10/10/2014 3:59 PM EDT [facility] Name: CHARLIE HAYWOOD [facility] R # [id number] [facility] : [birth year] Age: 38 Sex: M DIS Shahla DISCHARGE SUMMARY Location: Room: [facility] Admit Date: 02/26/14 Disch Date: 02/27/14 cc: [...] of last known catheterization as per patient's comb setter, Dr. Reilly at phone number [phone]. Nonobstructive coronary artery disease as per [facility]; last catheterization this year: 6. History of a total of 9 lifetime cardiac catheterization reported as per the comb setter so far. 7. History of type 2 diabetes on oral medications only. No insulin as per the PCP reports. Contrary to what the patient says, he takes insulin. SECONDARY DIAGNOSES: Hypertension; asthma; depression; anxiety; obstructive sleep apnea, on CPAP with a pressure of 12 mmHg. History of bypass surgery. Reported history of suicidal attempts, treated at [facility] in 2010. DISCHARGE MEDICATIONS: Same as prior [...] Jaja De La Rosa, at phone number [phone], and also spoke with the patient's comb setter, Dr. Reilly from [facility] Front Office Manager at office number [phone] and cell phone number [phone]. The patient was seen by the staff, complaining of chest pain, but he was completely at ease. He was reporting 10/10 pain contrary to his behavior. The patient when seen by me was chest pain-free. [facility] Name: CHARLIE HAYWOOD [facility] MR # [id number] [facility] D/C Date: 02/27/14 DISCHARGE SUMMARY continued Reportedly, this patient has had 3 catheterization in the last 2 months, the last one being at [facility] in December, reportedly as per the comb setter's information. It showed nonobstructive coronary artery disease. The patient was recently seen by Dr. Reilly just 2 days ago at his office. There was no new procedural intervention recommended. He has been on maximal medical therapy as per the comb setter. Unfortunately, the patient has had a history [...] ESCRIPT 1317 1407 //ivnm// //add1// //add3// //add2// [id number] documented in this encounter Plan of Treatment [...] 128(H) 74 - 118 CONVERS ION FROM [employer] Comment:Resulted using [employer] POC Software 02/27/2014 10:5 8 AM EST 02/27/2014 11:08 AM EST us Jai Tejeda MD POCT ORDERABLES - DEVICE Erica l Result CONVERSION FROM [employer] * POCT Glucose (02/27/2014 7:57 AM EST) Glucose, POC 110 74 - 118 CONVERS ION FROM [employer] Comment:Resulted using [employer] POC Software 02/27/2014 7:57 AM EST 02/27/2014 8:05 AM EST us Jai Tejeda MD POCT ORDERABLES - DEVICE Erica l Result Performing Organization Address [facility] Co de Phone Number CONVERSION FROM [employer] * (ABNORMAL) Hemoglobin A1C (02/27/2014 6:00 AM EST) Hemoglobin A1C 6.4(H) 4.4 - 6.3 % CONVERSION FROM [employer] Estimated Average Glucose 137 mg/dl CONVERSION FROM [employer] Comment: The estimated average Glucose (eAG) is calculated as follows based on the recommendations of the Citizen Of [place] Diabetes Association: eAG = (A1C x 28.7) - 46.7 Blood specimen (specimen) 02/27/2014 6:00 AM EST 02/27/2014 6:45 AM EST us Jai Tejeda MD LAB BLOOD ORDERABLES Final Re sult Performing Organization Address [facility] de Phone Number CONVERSION FROM [employer] * Troponin T (02/27/2014 1:04 AM EST) Troponin T < 0.01 <0.03 ng/ml CONVERSION FROM [employer] Comment: Troponin-T: <0.03 ng/ml - Negative 0.03 to 0.09 ng/ml - Indeterminate >0.09 ng/ml - Positive for acute myocardial damage Blood specimen (specimen) 02/27/2014 1:04 AM EST 02/27/2014 1:04 AM EST us Jai Tejeda MD LAB BLOOD ORDERABLES Final Re sult Performing Organization Address [facility] Co de Phone Number CONVERSION FROM [employer] documented in this encounter Visit Diagnoses Not on filedocumented in this encounter Care Teams Store Sales Consultant Relationship Specialty Start Date End Date None, MD Baldemar PCP - General 07/28/14 01/13/19 South Khanna MD [address] [place] [id number] PCP - General 01/14/19 None, MD Baldemar 07/28/14 documented as of this encounter
--- OUTSIDE RECORDS SUMMARY | 2024-07-12 22:52 | XMS_ITS | Clinical Summary ---
Author Organization [facility] Address [address] [place] [address] Care Team Providers Care Nursing Home Social Worker Name Role Phone Unavailable Primary Care Provider [...] 1 (one) time each day Active Tiotropium [place] Monohydrate (SPIRIVA HANDIHALER) 18 MCG per inhalation [...] Diagnosed Date Coronary artery disease invo lving kenaitze coronary artery of kenaitze heart with angina pectoris 05/15/2019 Overview (05/15/2019): Coronary artery disease with prior PR, PCI/stenting of RCA in 2008, in-stent restenosis and PCI/stenting in 2017. Heart cath at [facility] 11/30/2018: LM: No stenosis LAD: Large vessel [...] 1 disorder 01/21/2019 Hyperlipidemia 01/21/2019 History of PR (myocardial infarction) 01/21/2019 Overview (02/14/2019): Prior stents [...] 36.6 ??C (97.8 ??F) 03/03/2019 2:[address] Respiratory Rate - - Oxygen Saturation 95% [...] Additional history exists Bariatric Labs (gastric bypass) 07/10/2023 COVID-19 Vaccine ( season) 2023 08/11/2020, 06/07/2020 [...] at . Any insurance accepted. Quit smoking resources-http://Libersy.org HEMOGLOBIN A1C % < 7 Result Component [...] 120 is ideal. Procedures * Due to [place] [employer] law, this organization might not be sharing [...] to Health Maintenance Results * Due to [employer] law, this organization might not be sharing negative HIV tests. * ELECTROCARDIOGRAM, TRACING (02/16/2024 8:18 PM EST) I-40 HORIZONTAL AXIS [address] [facility] QT INTERVAL [address] [facility] RAD P DURATION [address] [facility] T [facility] RAD T WAVE AXIS [address] [facility] RAD QRS AXIS -41 degree [facility] QRSD INTERVAL 115 msec [facility] RAD MS INTERVAL 176 msec [facility] RAD T HORIZONTAL AXIS 57 degree [facility] QRS HORIZONTAL AXIS 19 degree [facility] Q ONSET 499 msec [facility] ATRIAL RATE 74 msec [facility] RAD T-40 FRONT AXIS 202 degree [facility] ELECTROCARDIOGRAM 12 LEAD - ABNORMAL ECG - Sinus rhythm Nonspecific IVCD with LAD Abnormal R-wave progression, early transition [facility] Comment:Missing Attachment B 64ENCODE Can be viewed in source system P FRONT AXIS 31 degree [facility] RAD RR INTERVAL 811 msec [facility] RAD QTCF 420 msec [facility] T-40 HORIZONTAL AXIS -89 degree [facility] S-T FRONT AXIS 241 degree [facility] RAD P HORIZONTAL AXIS 31 degree [facility] HEART RATE 74 bpm [facility] RAD I-40 FRONT AXIS -44 degree [facility] QTCB 435 msec [facility] S-T HORIZONTAL AXIS 72 degree [facility] 02/16/2024 8:18 PM EST us Amy Abreu NP CARDIOVASCULAR-NO INERVIN Villanueva TG Final Result [facility] [address] [place] [address] * (ABNORMAL) BASIC METABOLIC PANEL (05/25/2021 4:37 PM EST) Glucose 187(H) 65 - 99 mg/dL [facility] BUN 12 5 - 26 mg/dL [facility] CREATININE 0.66 0.5 - 1.5 mg/dL [facility] BUN/Creatinine Ratio 18 8 - 27 [facility] GLOM FILT RATE, EST 117.6 >59 mL/min [facility] IF -RADHA N 136.3 >59 mL/min [facility] SODIUM 139 134 - 144 mEq/L [facility] POTASSIUM 4.2 3.6 - 5.6 mEq/L [facility] CHLORIDE 105 96 - 109 mEq/L [facility] CARBON DIOXIDE 21 20 - 32 mEq/L [facility] ANION GAP 13.0 8 - 15 [facility] CALCIUM 8.9 8.3 - 10.0 mg/dL [facility] COMMENT [facility] Comment: Specimen is slightly hemolyzed. The following tests may be affected: K+, AST, LDH, DBili, and UIBC. 05/25/2021 4:37 PM EST 05/25/2021 4:37 PM EST us Emergency Rm Provider [facility] LABORATORY Final Result [facility] [address] [place] [address] * CXR 2 VIEW AP/PA AND LAT (05/10/2021 5:54 AM EST) RADIOLOGY REPORT [facility] Department of Radiology [address] [place] [address], [address] Name: CHARLIE HAYWOOD : 77 Date of Service: 05/10/21627 Acct Number: [id number] Order Number: ??[id number] ?Location: [facility] Report Number: [id number] ?Service: DEP ER/ Requesting Physician: Emergency,Room MD Category: RADIOLOGY ??[facility] Exam: CHEST 2 VIEWS (DEPARTMENT) ?? Signs/Symptoms: [...] findings. #R1# Date/Time of Dictation: 05/10/21 0656 Instant Potato Processor (if applicable): Lokesh Frausto MD Approved By Attending Radiologist: Trish Velasquez MD 05/10/21 0859 [facility] Department of Radiology [address] [place] [address], [address] ? [phone] ? [facility] Anatomical Region Laterality Modality Other 05/10/2021 5:54 AM EST Narrative 05/10/2021 8:59 AM EST Reason for Study/History: Department of Radiology TEST(S) PROCESSED BY [facility] XRAY us Unknown Provider [facility] IMAGING-[facility] Final Resul t * HEMOGLOBIN A1C (02/05/2020 9:30 AM EDT) Hemoglobin A1C 5.8 % [facility] Comment: Diabetic Adult: ?? <7.0% Healthy ??Adult: ??4.8-5.9% GLUCOSE MEAN VALUE 120 mg/dL [facility] 02/05/2020 9:30 AM EDT 02/05/2020 9:30 AM EDT us Sushil Mcdaniel LABORATORY Final Result [facility] [address] [place] [address] * (ABNORMAL) CARDIAC RISK/LIPID PROFILE I (02/05/2020 9:30 AM EDT) CHOLESTEROL, TOTAL 112 100 - 199 mg/dL [facility] TRIGLYCERIDES 167(H) 0 - 149 mg/dL [facility] HDL-CHOLESTEROL 34(L) 40 - 59 mg/dL [facility] LDL-CHOLESTEROL 45 0 - 99 mg/dL [facility] CHOL/HDL RATIO 3.29 0.0 - 5.0 [facility] CHD RELATIVE RISK RATIO 0.5 Avg Risk = 1.0 x Avg [facility] LDL/HDL RATIO 1.3 0.0 - 3.6 [facility] Comment: RISK ?MEN RATIO ??WOMEN RATIO ==== ?==== ? ==== 1/2 AVERAGE ??1.00 ?1.50 ?AVERAGE ??3.60 ?3.20 2X ??AVERAGE ??6.30 ?5.00 3X ??AVERAGE ??8.00 ?6.10 CHD RELATIVE RISK RATIO 0.6 Avg Risk = 1.0 x Avg [facility] 02/05/2020 9:30 AM EDT 02/05/2020 9:30 AM EDT Sushil Mcdaniel LABORATORY Final Result Performing Organization Address City/State/[facility] Co de Phone Number [facility] [address] [place] [address] from Last 3 Months or Most Recently Relevant to Health Maintenance Insurance [facility] [employer]
--- OUTSIDE RECORDS SUMMARY | 2024-07-12 22:52 | XMS_ITS | Encounter Summary ---
Author Organization [facility] Address [address] [place] [address] Care Team Providers Care Layaway Clerk Name Role Phone None, Pcp Primary Care Provider Unavailabl e None, Pcp Unavailable Unavailable South Khanna MD Primary Care Provider Encounter Details Date Type Department Care Team (Late st Contact Info) Description 02/27/2014 Clinical Conversion Encounter GENERAL CONVERSION Eugenio Durán MD [address] [place] [address] Social History Tobacco Use Types Packs/Day Years Used Date Smoking Tobacco: Never Assessed Sex and Gender Information Value Date Recorded Sex Assigned at Male 01/14/2019 2:03 PM EDT Legal Sex Male 3:08 PM EDT Gender Identity Male 01/14/2019 2:03 PM EDT Sexual Orientation Not on file documented as of this encounter Consult Notes * Eugenio Durán MD - 10/10/2014 3:59 PM EDT [facility] Name: CHARLIE HAYWOOD [facility] R # [id number] [facility] : [birth year] Age: 38 Sex: M DIS Shahla CONSULTATION REPORT Location: Room: [facility] named [facility] Admit Date: 02/26/14 - 02/27/14 cc: [...] treaters, specifically has Department of Mental Health family independence case manager and outpatient therapist and prescriber. I reviewed [...] speak with his Department of Mental Health family independence case manager, Toney, I believe it is Sher, at phone number [phone]. However, neither his therapist nor his prescriber were available today. The following history is based then upon the information from his family independence case manager as well as review of the record and the interview: The patient has a long history of malingering and this was his diagnosis after a 2010 hospitalization at [facility]. According to his family independence case manager, the patient has been going from hospital to hospital claiming chest pain and subsequently suicidal thinking when he is faced with hospital discharge. This week, he had an outpatient consultation with a realty specialist at [facility]. According to the [facility] family independence case manager the realty specialist felt he was stable. On Sunday of this week, however, which will be 2 days ago or possibly the day before that which would be 3 days ago, he complained of chest pain, was brought by ambulance to [facility] [place] [facility], was worked up there for chest pain which was negative (the [facility] family independence case manager also tells me that the patient has had at least 2 negative cardiac catheterizations in the past 2 months). At any rate, the patient was transferred to [facility] per protocol at [facility], which is where a stent was placed in 1 coronary artery. In the past, he was again assessed to be stable from a cardiac point of view. He then talked about suicidal thoughts, but was discharged. It appears that fairly immediately after his discharge from [facility] he again complained of chest pain while on a train, was taken to this hospital and his workup here so far has been negative and again talked about suicidal thoughts. PAST PSYCHIATRIC HISTORY: Notable in that when he was assessed on admission at [facility] in October of 2010, he talked about having had depression for 5 years and several suicide attempts by cutting, although there were no scars or other evidence of his having cut in the past. He also talked about auditory and visual hallucinations at that time. He stayed at [facility] for 6 days. He reported command auditory hallucinations to kill himself and visual hallucinations of shadowy figures but he had an incongruently bright affect. His [facility] family independence case manager at that time, who I believe was a different family independence case manager than his current one, reported that the patient had a history of malingering. [facility] Name: CHARLIE HAYWOOD [facility] MR # [id number] CONSULTATION continued Admit Date: 02/26/14 He also [...] he was homeless. According to his current [facility] family independence case manager, he had been homeless until about 2 months ago when he was placed in an apartment in the [place], [place] where he had formerly lived. The [...] denied by the patient; however, they his [facility] family independence case manager tells me that the patient has been [...] full. When we talked about the recent [employer] game, he did so with some shahla. [...] diagnosed during a 6 day admission to [facility] in 2010, that diagnosis was confirmed by his current family independence case manager. He has also been engaging in behavior and reported symptoms virtually identical to the current symptoms of complaints of chest pain and suicidal thoughts, during recent weeks has had repeatedly negative workups for chest pain and he does not show symptoms of major depression or true suicidal intent. My impression therefore is that diagnosis is malingering and his [facility] family independence case manager has been coordinating his care. I do not think that there is any gain [facility] Name: CHARLIE HAYWOOD [facility] MR # [id number] CONSULTATION continued Admit Date: 02/26/14 to be achieved by psychiatric hospitalization. He should be discharged when he is medically stable. Dictated by: Eugenio Durán M.D. ELECTRONICALLY SIGNED 03/13/14 1447 T: SVETLANA 1228 [id number] //ivnm// //add1// //add3// //add2// [id number] documented in this encounter Plan of Treatment Not on file documented as of this encounter Visit Diagnoses Not on filedocumented in this encounter Care Teams Layaway Clerk Relationship Specialty Start Date End Date None, MD Baldemar PCP - General 07/28/14 01/13/19 South Khanna MD [address] [place] [address] PCP - General 01/14/19 None, MD Baldemar 07/28/14 documented as of this encounter
--- OUTSIDE RECORDS SUMMARY | 2024-07-12 22:52 | XMS_ITS | Encounter Summary ---
Author Organization [facility] Address [address] [place] [address] Care Team Providers Care Latex Dipper Name Role Phone South Khanna MD Primary Care Provider [phone] Encounter Details Date Type Department Care Team (Late st Contact Info) Description 04/21/2019 Abstract [facility] [place] [address] South Khanna MD [facility] [address] [place] [address] Social History Tobacco Use Types Packs/Day Years [...] at . Any insurance accepted. Quit smoking resources-[email or web address] - formerly [email or web address] HEMOGLOBIN A1C % < 7 Result Component [...] of this encounter Procedures * Due to [place] state law, this organization might not be sharing negative HIV tests. Procedure Name Priority Date/Time Associated Diagnosis Comments HEMOGLOBIN A1C Routine 03/26/2019 LIPID PANEL WITH REFLEX TO DIRECT LDL Routine 03/26/2019 documented in this encounter Results * Due to [place] state law, this organization might not be [...] documented as of this encounter Care Teams Latex Dipper Relationship Specialty Start Date End Date South Khanna MD PCP - General Internal Medicine 12/18/18 10/02/19 documented as of this encounter
--- OUTSIDE RECORDS SUMMARY | 2024-07-12 22:52 | XMS_ITS | Clinical Summary ---
Author Organization [facility] Address [address] [place] [address] [address] Care Team Providers Care Wood And Wood Products Factory Worker Name Role Phone Poc, Non Atrius Pcp [...] age to complete this topic RSV Vaccine Infant//toddler Aged Out No longer eligible based on patient's age to complete this topic Insurance [employer] Care Teams [employer] Factory Worker Relationship Specialty Start Date End Date Poc, Non Atrius Pcp Or PCP - General 09/03/14
--- OUTSIDE RECORDS SUMMARY | 2024-07-12 22:52 | XMS_ITS | Encounter Summary ---
Author Organization [facility] Address [address] [place] [address] Care Team Providers Care Cloth Printing Inspector Name Role Phone None, Pcp Primary Care Provider Unavailabl e None, Pcp Unavailable Unavailable South Khanna MD Primary Care Provider [phone] Encounter Details Date Type Department Care Team (Late st Contact Info) Description 02/26/2014 Clinical Conversion Encounter GENERAL CONVERSION George Pritchett MD [address] [place] [address] Social History Tobacco Use Types Packs/Day Years Used Date Smoking Tobacco: Never Assessed Sex and Gender Information Value Date Recorded Sex Assigned at Male 01/14/2019 2:03 PM EDT Legal Sex Male 3:08 PM EDT Gender Identity Male 01/14/2019 2:03 PM EDT Sexual Orientation Not on file documented as of this encounter H&P Notes * George Pritchett MD - 10/10/2014 3:59 PM EDT [facility] Name: CHARLIE HAYWOOD [facility] MR # [id number] [facility] : [birth year] Age: 38 Sex: M ADM Shahla HISTORY & PHYSICAL EXAM Location: Room: [facility] Admit Date: 02/26/14 - cc: MD SWAPNA [...] does not even show evidence of old OK. Blood work is essentially unremarkable except for microcytic anemia, but cardiac enzymes negative. The patient being admitted for chest pain rule out an acute coronary syndrome. PAST MEDICAL HISTORY: As reported by the patient coronary artery disease, status post OK x4 and stent to the RCA in 2008 done at [facility], history of type 2 diabetes on insulin, [...] the patient was admitted in 2010 to [facility], had extensive workup with stress test [...] had with him. I also asked about [facility] Name: CHARLIE HAYWOOD [facility] MR # [id number] HISTORY & PHYSICAL continued Admit Date: 02/26/14 [...] SVETLANA 57 42 //ivnm// //add1// //add3// //add2// [id number] documented in this encounter Plan of Treatment [...] (ABNORMAL) POCT Glucose (02/26/2014 10:01 PM EST) [facility] Glucose, POC 175(H) 74 - 118 CONVERS ION FROM [facility] Comment:Resulted using [employer] POC Software 02/26/2014 10:0 1 PM EST 02/26/2014 10:15 PM EST us Jai Tejeda MD POCT ORDERABLES - DEVICE Erica arroyo Result CONVERSION FROM [facility] * ECG 12 lead (02/26/2014 8:21 PM EST) 02/26/2014 8:21 PM EST Narrative CONVERSION FROM [facility] - 02/27/2014 12:51 PM EST [facility] [employer] ?Name: ??CHARLIE HAYWOOD ?MR # ?? [id number] EKG REPORT ? PCP: ??NO MD ?Ord [...] Procedure Note Daljit Guerra J - 11/16/2014 [facility]. Name: CHARLIE HAYWOOD MR # [id number] EKG REPORT PCP: NO MD Baldwin MD: George Pritchett MD : [birth year] Age: 38 Sex:M ADMINo Location: [facility] Exam Date: 02/26/14 cc: Skye Friend Rafael, [...] ECG ORDERABLES Final Result Performing Organization Address City/State/[facility] Co de Phone Number CONVERSION FROM [facility] * XR Portable Chest 1 Vw (02/26/2014 [...] 02/26/2014 5:48 PM EST Narrative CONVERSION FROM [facility] - 02/27/2014 12:52 PM EST [facility]. ?Name: ??CHARLIE HAYWOOD ?MR # ?? [id number] EKG REPORT ? PCP: ??NO MD ?Ord [...] Procedure Note Daljit Guerra J - 11/16/2014 [facility]. Name: CHARLIE HAYWOOD MR # [id number] EKG REPORT PCP: NO MD Ord MD: [...] Info ECG ORDERABLES Final Result CONVERSION FROM [facility] * (ABNORMAL) CBC and Differential (02/26/2014 5:14 PM EST) WBC 6.4 3.8 - 10.5 K/ul CONVERSION FROM [facility] RBC 4.21 4.1 - 5.6 M/ul CONVERSION FROM [facility] Hemoglobin 9.8(L) 12.7 - 16.7 g/dl CONVERSION FROM [facility] Hematocrit 32.3(L) 38.1 - 50.1 % CONVERSION FROM [facility] MCV 76.7(L) 82 - 98 fl CONVERSIO N FROM [facility] MCH 23.3(L) 25 - 35 pg CONVERSIO N FROM [facility] MCHC 30.3(L) 33 - 36 g/dl CONVERSION FROM [facility] RDW 17.1(H) 11.5 - 14.5 % CONVERSION FROM [facility] Platelet Count 416 150 - 450 K/ul CONVERSION FROM [facility] MPV 9.4 6 - 14 fl CONVERSION FROM [facility] Neutrophil 49(L) 50 - 70 % CONVERSIO N FROM [facility] Absolute Gran Ct 3.1 2.2 - 8.6 K/ul CONVERSION FROM [facility] Lymphocyte 37 25 - 40 % CONVERSIO N FROM [facility] Absolute Lymph Ct 2.4 1.5 - 4.0 K/ul CONVERSION FROM [facility] Monocyte 12 4 - 12 % CONVERSION FROM [facility] Absolute Cobb Ct 0.8 0.16 - 1.26 K/ul CONVERSION FROM [facility] Eosinophil 2 0 - 3 % CONVERSIO N FROM [facility] Absolute Eos Ct (Conversion) 0.1(L) 0.15 - 0.30 K/ul CONVERSION FROM [facility] Basophil 0 0 - 2 % CONVERSION FROM [facility] Absolute Baso Ct (Conversion) 0.0 0.0 - 0.21 K/ul CONVERSION FROM [facility] RELATIVE GRANULOYTES (CONVERSION) 0 % CONVERSION FROM [facility] Granulocytes(Aph eresis) 0 K/ul CONVERSION FROM [facility] Blood specimen (specimen) 02/26/2014 5:14 PM EST 02/26/2014 5:22 PM EST Jai Tejeda MD LAB BLOOD ORDERABLES Final Re sult CONVERSION FROM [facility] * APTT (02/26/2014 5:14 PM EST) PTT 29.5 22.5 - 35.5 SECONDS CONVERSION FROM [facility] Blood specimen (specimen) 02/26/2014 5:14 PM EST 02/26/2014 5:22 PM EST Jai Tejeda MD LAB BLOOD ORDERABLES Final Re sult CONVERSION FROM [facility] * ProTime-INR (02/26/2014 5:14 PM EST) Prothrombin Time 13.4 12.2 - 14.2 SECONDS CONVERSION FROM [facility] INR 1.04 0.90 - 1.10 CONVERSI ON FROM [facility] Blood specimen (specimen) 02/26/2014 5:14 PM EST 02/26/2014 5:22 PM EST Jai Tejeda MD LAB BLOOD ORDERABLES Final Re sult Performing Organization Address [facility] Co de Phone Number CONVERSION FROM [facility] * Troponin T (02/26/2014 5:14 PM EST) Troponin T < 0.01 <0.03 ng/ml CONVERSION FROM [facility] Comment: Troponin-T: <0.03 ng/ml - Negative 0.03 to 0.09 ng/ml - Indeterminate >0.09 ng/ml - Positive for acute myocardial damage Blood specimen (specimen) 02/26/2014 5:14 PM EST 02/26/2014 5:22 PM EST Jai Tejeda MD LAB BLOOD ORDERABLES Final Re sult CONVERSION FROM [facility] * Basic Metabolic Panel (02/26/2014 5:14 PM EST) Sodium 134 134 - 145 mmol/L CONVERSION FROM [facility] Potassium, Plasma 4.3 3.5 - 5.1 mmol/L CONVERSION FROM [facility] Chloride 100 96 - 108 mmol/L CONVERSION FROM [facility] Total CO2 24 22 - 32 mmol/L CONVERSION FROM [facility] Anion Gap 10 6 - 16 CONVERSION FROM [facility] Calcium 9.1 8.5 - 10.5 mg/dL CONVERSION FROM [facility] Glucose, Blood RANDOM CONVE RSION FROM [facility] Glucose, Blood 107 74 - 118 mg/dL CONVERSION FROM [facility] BUN 14 6 - 23 mg/dL CONVERSION FROM [facility] Creatinine 0.7 0.5 - 1.2 mg/dL CONVERSION FROM [facility] Glomerular Filtration Rate > 60 >60 ml/min CONVERSION FROM [facility] Result 20 6 - 25 RATIO CONVERSION FROM [facility] Hemolysis Normal CONVERSION FROM [facility] Blood specimen (specimen) 02/26/2014 5:14 PM EST 02/26/2014 5:22 PM EST us Jai Tejeda MD LAB BLOOD ORDERABLES Final Re sult CONVERSION FROM [facility] * ECG 12 lead (02/26/2014 4:50 PM EST) 02/26/2014 4:50 PM EST Narrative CONVERSION FROM [facility] - 02/27/2014 12:51 PM EST [facility]. ?Name: ??CHARLIE HAYWOOD ?MR # ?? [id number] EKG REPORT ? PCP: ??NO MD ?Ord [...] Procedure Note Daljit Guerra J - 11/16/2014 [facility]. Name: CHARLIE HAYWOOD MR # [id number] EKG REPORT PCP: NO MD Ord MD: Lio Cueto M.D. : [birth year] Age: 38 Sex:M ADMINo Location: [place] [address] Exam Date: 02/26/14 cc: Skye Friend Joshua, [...] Info ECG ORDERABLES Final Result CONVERSION FROM [facility] documented in this encounter Visit Diagnoses Not on filedocumented in this encounter Care Teams Cloth Printing Inspector Relationship Specialty Start Date End Date None, MD Baldemar PCP - General 07/28/14 01/13/19 South Khanna MD [address] [place] [address] PCP - General 01/14/19 None, MD aBldemar 07/28/14 documented as of this encounter
--- OUTSIDE RECORDS SUMMARY | 2024-07-12 22:53 | XMS_ITS | Clinical Summary ---
Author Organization [facility] Address [address] [place] [address] Care Team Providers Care Private Tutor Name Role Phone Provider, Generic External Data [...] Plan of Treatment Not on file Insurance [facility] Care Teams Private Tutor Relationship Specialty Start Date End Date Provider, Generic External Data 0 PCP - General 03/22/20
--- OUTSIDE RECORDS SUMMARY | 2024-07-12 22:53 | XMS_ITS ---
Author Organization [facility] Address [address] [place] [address] Care Team Providers Care Teacher Specialist Name Role Phone Jus Avery Unavailable [phone] REASON FOR VISIT NEED UPDATED ADDRESS Encounters Encounter Location Date Provider Diagnosis [facility] [address] [place] [address] 07/18/2023 Jus Avery Plan Of Treatment No Information Progress Notes * Charlie HAYWOODDOB: [birth year] (47 yo M)Acc No.[id number]:07/18/2023 Patient:?HAYWOODCharlie BAKER :1975???Age:47 Y???Sex:Male Address:[address] [place] [address] * true * Date:? Generated for Lopez mixon/Shaun/eTransmitting on:?07/12/2024 08:52 PM MDT
--- OUTSIDE RECORDS SUMMARY | 2024-07-12 22:53 | XMS_ITS | Clinical Summary ---
Author Organization [facility] Address [address] [place] [address] Care Team Providers Care It Systems Analyst Consultant Name Role Phone Beckett Trish Primary Care Provider [phone] Allergies Active Allergy Reactions Criticality Noted Date [...] 100 mg tablet 200 mg. Active ascorbate Qu-mutwhtvc-fmr (VITAMIN C) 1,000 mg powder effervescent in packet 500 mg. Active Ca b no.5-D4-[id number]-6-FA-B1 2-aloe (VITAMIN D-3 WITH ALOE) 120-1,000-10 mg-unit-mg [...] of cp and had SI w/ plan. [facility] was consulted at that point and was [...] the past 2-3 months and was at [facility] from where he was transferred to [facility]. He signed out AMA this morning to [...] (03/06/2020): Pt with clean cardiac cath at [facility] on 06/26/2014 He reports 4 past MIs, reports RCA stent, however no EKG features suggestive of past IN Last Assessment & Plan: Pt with hx of IN s/p stent in RCA, p/w left sided [...] stent, HLD, HTN. Additionally, his MIBI from [place] several weeks ago showed areas of ischemia [...] exercise, diet - connect patient with outpatient flight manager and PCP ? Pt with clean cardiac cath at [facility] on 06/26/2014 He reports 4 past MIs, reports RCA stent, however no EKG features suggestive of past IN Type 2 diabetes mellitus 11/17/2011 Overview (03/06/2020): [...] monitor BP Last Assessment & Plan: Per [facility] in [place], pt taking Lisinopril 20mg daily, Metoprolol 75mg [...] - 5.7 % 03/08/2020 5:30 PM EST [facility] Comment: Hemoglobin variant present. Recommend hemoglobin electrophoresis. Prediabetic range: 5.7 - 6.4% Diabetic range: > or = 6.5% Blood Venous blood / Unknown Venipuncture / Unknown 03/06/2020 8:35 PM EST 03/06/2020 8:51 PM EST Roc Edwards MD LAB BLOOD ORDERABLES Final Result [facility] [address] [place] [address], [place] [phone] from Last 3 Months or Most Recently Relevant to Health Maintenance Insurance [facility] [place] [address] STANDARD Advance Directives * Full Code (Latest Code Status on File) Date Activated Date Inactivated Comments 03/07/2020 12:03 AM 03/10/2020 6:49 PM Care Teams It Systems Analyst Consultant Relationship Specialty Start Date End Date Trish Beckett [id number],[place] [address] PCP - General 03/06/20
--- OUTSIDE RECORDS SUMMARY | 2024-07-12 22:53 | XMS_ITS | Encounter Summary ---
Author Organization Lizzeth Maier [facility] Address [address] [place] [address] Care Team Providers Care Flame Cutter Name Role Phone None, Pcp Primary Care [...] Torres MD - 10/26/2014 6:33 AM EDT [facility] Name: CHARLIE HAYWOOD [facility] MR # [id number] [facility] : [birth year] Age: 38 Sex: M ADM Shahla TRANSFER SUMMARY Location: *[facility] Room: [facility] Admit Date: 07/26/14 Disch Date: cc: Skye Medina MD DATE OF TRANSFER: 07/29/2014 To be transferred to [facility] for cardiac catheterization on 07/29/14. PRIMARY CARE PHYSICIAN: Unknown. CONSULTS: Dr. Charlie Reynolds, cardiology and Dr. Jem Ramirez, psychiatry. The patient's own finding fastener is a Dr. Reilly at phone number [phone]. FINAL DISCHARGE DIAGNOSES: Chest pain of unclear [...] 1-2 weeks. He is being transferred to [place] for cardiac catheterization arranged by Dr. Reynolds. [...] 33.1, WBC count 5900, platelet count 307,000. [facility] Name: CHARLIE HAYWOOD [facility] MR # [id number] [facility] Admit Date: 07/26/14 TRANSFER SUMMARY continued Sodium 141, potassium 4.6, chloride 106, CO2 24, glucose 75, BUN 15, creatinine 0.7. HISTORY OF PRESENT ILLNESS: The patient is a 38-year-old male who had been admitted to [facility] on the with chest pain and then subsequently discharged. [place] had gone [place] the train station to go home, but redeveloped chest discomfort and shortness of breath and was brought to the [facility] Emergency Room. The patient has had multiple hospitalizations for chest pain and gives a history of previous MIs and previous cardiac catheterizations. He apparently had been admitted to the hospital back in February and at that time, the hospitalist checked with his primary finding fastener and the patient apparently has had a [...] occasions and has been evaluated twice at [facility] and once at [place] by psychiatry and has been cleared for home discharge with follow up with his usual mental health services back in his home area. Because of his ongoing chest pain, it was felt that he should have cardiac catheterization and Dr. Reynolds arranged this to be performed at [facility]. Dictated by: Ayaan Torres M.D. ELECTRONICALLY SIGNED 07/29/14914 T: SVETLANA 4 7 //ivnm// //add1// //add3// //add2// [id number] documented in this encounter Progress Notes * Ayaan Torres MD - 11/16/2014 9:49 AM EDT [facility] Name: CHARLIE HAYWOOD [facility] MR # [id number] [facility] : [birth year] Age: 38 Sex: M ADM Shahla PATIENT CARE REFERRAL PAGE 1 Location: [facility] Room: [facility] Admit Date: 07/26/14 - cc: Ayaan [...] 139(H) 74 - 118 CONVERS ION FROM [employer] Comment:Resulted using [employer] POC Software 07/29/2014 11:0 0 AM EDT 07/29/2014 11:31 AM EDT us Toney Cat MD POCT ORDERABLES - DEVICE Final Result Performing Organization Address [facility] de Phone Number CONVERSION FROM [employer] * POCT Glucose (07/29/2014 7:17 AM EDT) Glucose, POC 97 74 - 118 CONVERS ION FROM [employer] Comment:Resulted using [employer] POC Software 07/29/2014 7:17 AM EDT 07/29/2014 7:26 AM EDT us Ayaan Torres MD POCT ORDERABLES - DEVICE Final Result Performing Organization Address [facility] Co de Phone Number CONVERSION FROM [employer] * ECG 12 lead (07/29/2014 6:24 AM EDT) 07/29/2014 6:24 AM EDT Narrative CONVERSION FROM [facility] - 07/29/2014 6:59 PM EDT [facility] ?Name: ??CHARLIE HAYWOOD ?MR # ?? [id number] EKG REPORT ? PCP: ??NO MD ?Ord [...] Procedure Note Charlie Reynolds MD - 11/08/2014 [employer] Name: CHARLIE HAYWOOD MR # [id number] EKG REPORT PCP: SWAPNA CHATMAN Ord MD: Jc Inman M.D. : [birth year] Age: 38 Sex:M DISINo Location: *[address] Exam Date: 07/29/14 cc: Skye Daley [...] MD ECG ORDERABLES Final Result CONVERSION FROM [employer] documented in this encounter Visit Diagnoses Not on filedocumented in this encounter Care Teams Flame Cutter Relationship Specialty Start Date End Date None, Pcp, PCP - General 07/28/14 01/13/19 South Khanna MD [address] [place] [address] PCP - General 01/14/19 None, PcpMD 07/28/14 documented as of this encounter
--- OUTSIDE RECORDS SUMMARY | 2024-07-12 22:53 | XMS_ITS | Encounter Summary ---
Author Organization Lizzeth Maier [facility] Address [address] [place] [address] Care Team Providers Care Senior Net Engineer Name Role Phone None, Pcp Primary Care Provider Unavailabl e None, Pcp Unavailable Unavailable South Khanna MD Primary Care Provider [phone] Encounter Details Date Type Department Care Team [...] Torres MD - 11/24/2014 7:51 AM EDT [facility] Name: CHARLIE HAYWOOD [facility] MR # [id number] : [birth year] Age: 38 Sex: M PROGRESS NOTE ADM IN Location: *[facility] Room: [facility] cc: Ayaan Torres M.D. -- Subjective Date/Time [...] Rel Value (25 - 40 %) 45 Wilkin Rel Value (4 - 12 %) 11 [...] on filedocumented in this encounter Care Teams Senior Net Engineer Relationship Specialty Start Date End Date None, MD Baldemar PCP - General 07/28/14 01/13/19 South Khanna MD [address] [place] [address] PCP - General 01/14/19 NoneBaldemar MD 07/28/14 documented as of this encounter
--- OUTSIDE RECORDS SUMMARY | 2024-07-12 22:53 | XMS_ITS | Clinical Summary ---
Author Organization [email or web address] Address [address] [place] [address] Care Team Providers Care Generator Operator Name Role Phone Pcp, No Primary [...] Td Vaccines Adult 08/01/1995 COVID-19 Vaccine (2 2023-2 5 season) 2023 08/11/2020 Influenza Vaccine (Season Ended) 2024 HIB Vaccines Aged Out No longer eligi [...] topic Insurance MANAGED MEDICARE GENERIC Care Teams Generator Operator Relationship Specialty Start Date End Date Pcp, [place] [address] PCP - General 08/12/20
--- OUTSIDE RECORDS SUMMARY | 2024-07-12 22:53 | XMS_ITS | Patient Health Record ---
Author Organization [facility] Address [address] [facility] [place] [id number] Care Team Providers Care Security Professionals Name Role Phone ARNOLD KUMAR Primary Care [...] 1 tablet Orally Twice a day Active [place] Carbonate 600 MG 1 capsule Orall y [...] Status W/U Status Risk Notes Problem Hypothyroidism (83067100) Hypothyroidism, unspecified (E03.9) Active confirmed Problem Hyperlipidemia (58603549) Hyperlipidemia, unspecified (E78.5) Active confirmed Problem Hypothyroidism (76325959) Hypothyroidism (acquired) (E03.9) Active confirmed Problem Atherosclerotic heart disease of [place] coronary artery without angina pectoris (659889352027203) CVD (cardiovascular disease) (I25.10) Active confirmed Problem Solitary nodule of lung (700911100) Lung nodule (R91.1) Active confirmed Problem Type II diabetes mellitus without complication (357367028) Controlled type 2 diabetes mellitus without complication, unspecified whether oil heaterman insulin use (E11.9) Active confirmed Vital Signs Heart Rate 80 /min 11/08/2023 Respiratory Rate 18 /min 11/08/2023 Blood pressure diastolic 70 mm Hg 11/08/2023 Blood pressure systolic 120 mm Hg 11/08/2023 Encounters Encounter Location Date Provider Diagnosis [address] [address] 08/29/2023 ARNOLD KUMAR Controlled type 2 diabetes mellitus without complication, unspecified whether custodial insulin use E11.9 ; Hypothyroidism (acquired) E03.9 and Hyperlipidemia, unspecified E78.[address] [place] [address] 10/03/2023 ARNOLD KUMAR Controlled type 2 diabetes mellitus without complication, unspecified whether oil heaterman insulin use E11.9 ; Hypothyroidism (acquired) E03.9 ; Hyperlipidemia, unspecified E78.5 and Lung nodule R91.1 [facility] [id number] [place] [id number] 11/08/2023 ARNOLD KUMAR Controlled type 2 diabetes mellitus without complication, unspecified whether custodial insulin use E11.9 ; Hypothyroidism (acquired) E03.9 ; Hyperlipidemia, unspecified E78.5 and Lung nodule R91.1 Assessments Encounter Date Diagnosis (ICD Code) Assessment Notes Treatment Notes Treatment Clinical Notes Section Notes 08/29/2023 Hypothyroidism (acquired) (ICD-10 - E03.9) Continue on Levothyroxine, monitor TSH. 08/29/2023 Controlled type 2 diabetes mellitus without complication, unspecified whether oil heaterman insulin use (ICD-10 - E11.9) Continue on Metformin, diabetic diet. 10/03/2023 Hypothyroidism (acquired) (ICD-10 - E03.9) Continue on Levothyroxine, monitor TSH. 10/03/2023 Controlled type 2 diabetes mellitus without complication, unspecified whether custodial insulin use (ICD-10 - E11.9) Continue on current medications. 11/08/2023 Controlled type 2 diabetes mellitus without complication, unspecified whether oil heaterman insulin use (ICD-10 - E11.9) Continue on Metformin, diabetic diet. 11/08/2023 Hypothyroidism (acquired) (ICD-10 - E03.9) Continue on Levothyroxine, monitor TSH. 10/03/2023 Hyperlipidemia, unspecified (ICD-10 - E78.5) Continue on statin. 08/29/2023 Hyperlipidemia, unspecified (ICD-10 - E78.5) Continue on statin, low cholesterol diet, monitor lipids. 10/03/2023 Lung nodule (ICD-10 - R91.1) Pulmonary consult. 11/08/2023 Hyperlipidemia, unspecified (ICD-10 - E78.5) Continue on Atorvastatin, low cholesterol diet. 11/08/2023 Lung nodule (ICD-10 - R91.1) Pulmonary consult. 11/08/2023 Other Ordered labs, cardiology consult. Plan Of Treatment No Information Insurance Providers Payer Name Payer Address Payer Phone Subscriber Number Group Number Insured Name Patient Relationship to Insured Coverage Start Date Coverage End Date [facility] [address] [place] [phone] [id number] Charlie Rios Self - patient is the insured [facility] [address] [place] [address] [id number] Charlie Rios Self - patient is the [...] gastric bypass 06/15/20082008 Hospitalization History Reason Date(Month/Year) [facility] for chest pain, CAD, the patient undergone cardiac catheterization. 06/17/23
--- OUTSIDE RECORDS SUMMARY | 2024-07-12 22:53 | XMS_ITS | Encounter Summary ---
Author Organization [facility] Address [address] [place] [id number] Care Team Providers Care Lock Fitter Name Role Phone None, Pcp Primary Care Provider Unavailabl e None, Pcp Unavailable Unavailable South Khanna MD Primary Care Provider [phone] Encounter Details Date Type Department Care Team (Late st Contact Info) Description 07/26/2014 Clinical Conversion Encounter [facility], [address] [address] Lilia Reynolds MD [address] [place] [address] Social History Tobacco Use Types Packs/Day Years Used Date Smoking Tobacco: Never Assessed Sex and Gender Information Value Date Recorded Sex Assigned at Male 01/14/2019 2:03 PM EDT Legal Sex Male 3:08 PM EDT Gender Identity Male 01/14/2019 2:03 PM EDT Sexual Orientation Not on file documented as of this encounter Consult Notes * Lilia Reynolds MD - 10/26/2014 6:33 AM EDT [facility] Name: HAYWOOD,LILIA [facility] R # [id number] [facility] : [birth year] Age: 38 Sex: M DIS Shahla CONSULTATION REPORT Location: [facility] Room: [facility] Admit Date: 07/26/14 - 07/29/14 cc: Skye Daley MD _ DATE OF CONSULTATION: 07/26/2014 CARDIOLOGY CONSULTATION HISTORY OF PRESENT ILLNESS: A 38-year-old man admitted on 07/26/2014. He is admitted because of chest pain. He was discharged from [facility] earlier on July 26. He had been [...] fact that both the parents had ischemic [facility] Name: LILIA HAYWOOD [facility] MR # [id number] CONSULTATION continued Admit Date: 07/26/14 heart disease [...] tests are negative as they were at [facility]. Given the fact that he is immediately back in the hospital, we can do a stress test. If his troponin rises, would recommend he go for a cardiac catheterization. He is on reasonable medication. He has anemia which is not enough to give him the [facility] Name: LILIA HAYWOOD [facility] MR # [id number] CONSULTATION continued Admit Date: 07/26/14 symptoms, but might warrant looking into. I would not change his prehospital medications at this time. I will follow. Dictated by: Lilia Reynolds M.D. ELECTRONICALLY SIGNED 08/20/14 1447 T: [id number] //ivnm// //add1// //add3// //add2// [id number] documented in this encounter Plan of Treatment [...] 145(H) 74 - 118 CONVERS ION FROM [facility] Comment:Resulted using [employer] POC Software 07/26/2014 8:47 PM EDT 07/26/2014 8:56 PM EDT Ayaan Torres MD POCT ORDERABLES - DEVICE Final Result Performing Organization Address [facility] de Phone Number CONVERSION FROM [facility] * Troponin T (07/26/2014 7:46 PM EDT) Troponin T < 0.01 <0.03 ng/ml CONVERSION FROM [facility] Comment: Troponin-T: <0.03 ng/ml - Negative 0.03 to 0.09 ng/ml - Indeterminate >0.09 ng/ml - Positive for acute myocardial damage Blood specimen (specimen) 07/26/2014 7:46 PM EDT 07/26/2014 7:46 PM EDT Ayaan Torres MD LAB BLOOD ORDERABLES Fin al Result CONVERSION FROM [facility] * (ABNORMAL) POCT Glucose (07/26/2014 4:35 PM EDT) Glucose, POC 175(H) 74 - 118 CONVERS ION FROM [facility] Comment:Resulted using [employer] POC Software 07/26/2014 4:35 PM EDT 07/26/2014 4:43 PM EDT Ayaan Torres MD POCT ORDERABLES - DEVICE Final Result Performing Organization Address [facility]/State/ZIP Co de Phone Number CONVERSION FROM [facility] * (ABNORMAL) Drug Screen/Comprehensive, Urine (07/26/2014 4:30 PM EDT) Pathologist [facility] Ethanol, Urine NEGATIVE NEGATIVE CONVE RSION FROM [facility] Amphetamines, Urine NEGATIVE NEGATIVE CONVERSION FROM [facility] Barbiturates Screen, Urine POSITIVE(H) NEGATIVE CONVERSION FROM [facility] Benzodiazepine Screen, Urine NEGATIVE NEGATIVE CONVERSION FROM [facility] Cocaine Metabolism, Urine NEGATIVE NEGATIVE CONVERSION FROM [facility] Methadone Qual, Urine NEGATIVE NEGATIVE CONVERSION FROM [facility] Opiates Screen,Urine Random POSITIVE(H) NEGATIVE CONVERSION FROM [facility] Oxycontin Screen, Urine NEGATIVE NEGATIVE CONVERSION FROM [facility] PROPOXYPHENE-UR (Conversion) NEGATIVE NEGATIVE CONVERSION FROM [facility] Cannabinoids Screen, Urine NEGATIVE NEGATIVE CONVERSION FROM [facility] Buprenorphine,Uri ne NEGATIVE NEGATIVE CONVERSION FROM [facility] Creatinine, Random Urine 197.2 mg/dL CONVERSION FROM [facility] Urine specimen (specimen) 07/26/2014 4:30 PM EDT 07/26/2014 4:30 PM EDT Ayaan Torres MD URINE ORDERABLES Final R esult Performing Organization Address [facility] Co de Phone Number CONVERSION FROM [facility] * ECG 12 lead (07/26/2014 4:21 PM EDT) 07/26/2014 4:21 PM EDT Narrative CONVERSION FROM [facility] - 07/28/2014 9:[address] [facility] ?Name: ??LILIA HAYWOOD ?MR # ?? [id number] EKG REPORT ? PCP: ??NO MD ?Ord [...] Procedure Note Lilia Reynolds MD - 11/08/[address] [facility] Name: LILIA HAYWOOD MR # [id number] EKG REPORT PCP: SWAPNA Baldwin MD: Jc Inman M.D. : [birth year] Age: 38 Sex:M ADMINo Location: [address] Exam Date: 07/26/14 cc: Skye Daley [...] MD ECG ORDERABLES Final Result CONVERSION FROM [facility] * ECG 12 lead (07/26/2014 1:00 PM EDT) 07/26/2014 1:00 PM EDT Narrative CONVERSION FROM [facility] - 07/28/2014 9:42 AM EDT [facility] ?Name: ??LILIA HAYWOOD ?MR # ?? [id number] EKG REPORT ? PCP: ??NO MD ?Ord [...] Procedure Note Lilia Reynolds MD - 11/08/2014 [facility]. Name: LILIA HAYWOOD MR # [id number] EKG REPORT PCP: NO MD Baldwin MD: Rian Sinclair M.D. : [birth year] Age: 38 Sex:M ADMINo Location: [place] [address]-[id number] Exam Date: 07/26/14 cc: Skye Daley Jeffrey, [...] ECG ORDERABLES Final Resu lt CONVERSION FROM [facility] * XR Portable Chest 1 Vw (07/26/2014 [...] segment of left upper lobe. Procedure Note Aung Merida MD - 11/17/2014 EXAM DESCRIPTION: CHEST [...] 12:0 2 PM EDT Narrative CONVERSION FROM [facility] - 07/28/2014 9:42 AM EDT [facility]. ?Name: ??LILIA HAYWOOD ?MR # ?? [id number] EKG REPORT ? PCP: ??NO MD ?Ord [...] Procedure Note Lilia Reynolds MD - 11/08/[address] [facility] Name: LILIA HAYWOOD MR # [id number] EKG REPORT PCP: NO MD Ord MD: Rian Sinclair M.D. : [birth year] Age: 38 Sex:M ADMINo Location: *[place] [address]A Exam Date: 07/26/14 cc: Skye Daley Jeffrey, [...] ECG ORDERABLES Final Resu lt CONVERSION FROM [facility] * (ABNORMAL) CBC and Differential (07/26/2014 11:55 AM EDT) WBC 6.8 3.8 - 10.5 K/ul CONVERSION FROM [facility] RBC 4.25 4.1 - 5.6 M/ul CONVERSION FROM [facility] Hemoglobin 10.7(L) 12.7 - 16.7 g/dl CONVERSION FROM [facility] Hematocrit 33.7(L) 38.1 - 50.1 % CONVERSION FROM [facility] MCV 79.3(L) 82 - 98 fl CONVERSIO N FROM [facility] MCH 25.2 25 - 35 pg CONVERSIO N FROM [facility] MCHC 31.8(L) 33 - 36 g/dl CONVERSION FROM [facility] RDW 18.7(H) 11.5 - 14.5 % CONVERSION FROM [facility] Platelet Count 306 150 - 450 K/ul CONVERSION FROM [facility] MPV 10.5 6 - 14 fl CONVERSION FROM [facility] Neutrophil 45(L) 50 - 70 % CONVERSIO N FROM [facility] Absolute Gran Ct 3.0 2.2 - 8.6 K/ul CONVERSION FROM [facility] Lymphocyte 38 25 - 40 % CONVERSIO N FROM [facility] Absolute Lymph Ct 2.6 1.5 - 4.0 K/ul CONVERSION FROM [facility] Monocyte 15(H) 4 - 12 % CONVERSION FROM [facility] Absolute [address] 1.0 0.16 - 1.26 K/ul CONVERSION FROM [facility] Eosinophil 2 0 - 3 % CONVERSIO N FROM [facility] Absolute Eos Ct (Conversion) 0.1(L) 0.15 - 0.30 K/ul CONVERSION FROM [facility] Basophil 0 0 - 2 % CONVERSION FROM [facility] Absolute Baso Ct (Conversion) 0.0 0.0 - 0.21 K/ul CONVERSION FROM [facility] Blood specimen (specimen) 07/26/2014 11:55 AM EDT 07/26/2014 12:09 PM EDT Ayaan Torres MD LAB BLOOD ORDERABLES Fin al Result Performing Organization Address [facility] Co de Phone Number CONVERSION FROM [facility] * APTT (07/26/2014 11:55 AM EDT) PTT 26.2 22.5 - 35.5 SECONDS CONVERSION FROM [facility] Blood specimen (specimen) 07/26/2014 11:55 AM EDT 07/26/2014 12:09 PM EDT Ayaan Torres MD LAB BLOOD ORDERABLES Fin al Result Performing Organization Address [facility] de Phone Number CONVERSION FROM [facility] * ProTime-INR (07/26/2014 11:55 AM EDT) Prothrombin Time 13.0 12.2 - 14.2 SECONDS CONVERSION FROM [facility] INR 1.00 0.90 - 1.10 CONVERSI ON FROM [facility] Blood specimen (specimen) 07/26/2014 11:55 AM EDT 07/26/2014 12:09 PM EDT Ayaan Torres MD LAB BLOOD ORDERABLES Fin al Result CONVERSION FROM [facility] * LDL Cholesterol, Direct (07/26/2014 11:55 AM EDT) Direct LDL Cholesterol 85 <130 mg/dL CONVERSION FROM [facility] Blood specimen (specimen) 07/26/2014 11:55 AM EDT 07/26/2014 12:09 PM EDT Ayaan Torres MD LAB BLOOD ORDERABLES Fin al Result CONVERSION FROM [facility] * (ABNORMAL) Lipid Panel (07/26/2014 11:55 AM EDT) Cholesterol 150 130 - 200 mg/dL CONVERSION FROM [facility] Triglycerides 351(H) <200 mg/dL CONVERSION FROM [facility] Comment: Use non-HDL cholesterol or Apolipoprotein B to monitor cardiovascular risk and cholesterol lowering therapy. HDL Cholesterol 29(L) 40 - 65 mg/dL CONVERSION FROM [facility] LDL Cholesterol TNP <130 mg/dl CONVERSION FROM [facility] Comment: NO CALCULATED LDL CAN BE PERFORMED WHEN TRIG >250. A DIRECT LDL HAS BEEN ORDERED. Non-HDL Cholesterol 121 <190 mg/dL CONVERSION FROM [facility] Comment: Normal primary Prevention ?<190 mg/dl High risk primary prevention ? <160 mg/dl Secondary prevention ? <130 mg/dl High risk secondary prevention ?? <100 mg/dl VLDL Cholesterol TNP mg/dl CON VERSION FROM [facility] Comment:NO CALCULATED VLDL C AN BE PERFORMED WHEN TRIG >250. Coronary Risk Interpretation 5.2(H) 2.0 - 5.0 CONVERSION FROM [facility] Blood specimen (specimen) 07/26/2014 11:55 AM EDT 07/26/2014 12:09 PM EDT Ayaan Torres MD LAB BLOOD ORDERABLES Fin al Result CONVERSION FROM [facility] * Troponin T (07/26/2014 11:55 AM EDT) Troponin T < 0.01 <0.03 ng/ml CONVERSION FROM [facility] Comment: Troponin-T: <0.03 ng/ml - Negative 0.03 to 0.09 ng/ml - Indeterminate >0.09 ng/ml - Positive for acute myocardial damage Blood specimen (specimen) 07/26/2014 11:55 AM EDT 07/26/2014 12:09 PM EDT Ayaan Torres MD LAB BLOOD ORDERABLES Fin al Result Performing Organization Address [facility] de Phone Number CONVERSION FROM [facility] * Basic Metabolic Panel (07/26/2014 11:55 AM EDT) Sodium 138 134 - 145 mmol/L CONVERSION FROM [facility] Potassium, Plasma 4.5 3.5 - 5.1 mmol/L CONVERSION FROM [facility] Chloride 103 96 - 108 mmol/L CONVERSION FROM [facility] Total CO2 22 22 - 32 mmol/L CONVERSION FROM [facility] Anion Gap 13 6 - 16 CONVERSION FROM [facility] Calcium 8.6 8.5 - 10.5 mg/dL CONVERSION FROM [facility] Glucose, Blood RANDOM CONVE RSION FROM [facility] Glucose, Blood 81 74 - 118 mg/dL CONVERSION FROM [facility] BUN 15 6 - 23 mg/dL CONVERSION FROM [facility] Creatinine 0.6 0.5 - 1.2 mg/dL CONVERSION FROM [facility] Glomerular Filtration Rate > 60 >60 ml/min CONVERSION FROM [facility] Result 25 6 - 25 RATIO CONVERSION FROM [facility] Hemolysis Normal CONVERSION FROM [facility] Blood specimen (specimen) 07/26/2014 11:55 AM EDT 07/26/2014 12:09 PM EDT Ayaan Torres MD LAB BLOOD ORDERABLES Fin al Result Performing Organization Address [facility] de Phone Number CONVERSION FROM [facility] * Hemoglobin A1C (07/26/2014 11:00 AM EDT) Hemoglobin A1C 6.2 4.4 - 6.3 % CONVERSION FROM [facility] Estimated Average Glucose 131 mg/dl CONVERSION FROM [facility] Comment: The estimated average Glucose (eAG) is calculated as follows based on the recommendations of the [place] [employer]: eAG = (A1C x 28.7) - 46.7 Blood specimen (specimen) 07/26/2014 11:00 AM EDT 07/26/2014 2:57 PM EDT us Ayaan Torres MD LAB BLOOD ORDERABLES Fin al Result CONVERSION FROM [facility] * POCT Glucose (07/26/2014 7:49 AM EDT) Pathologist [facility] Glucose, POC 81 74 - 118 CONVERS ION FROM [facility] Comment:Resulted using [employer] POC Software 07/26/2014 7:49 AM EDT 07/26/2014 8:01 AM EDT Dylan Coe MD POCT ORDERABLES - DEVICE Final Result CONVERSION FROM [facility] * (ABNORMAL) CBC and Differential (07/26/2014 6:00 AM EDT) [facility] WBC 5.5 3.8 - 10.5 K/ul CONVERSION FROM [facility] RBC 4.09(L) 4.1 - 5.6 M/ul CONVERSION FROM [facility] Hemoglobin 10.1(L) 12.7 - 16.7 g/dl CONVERSION FROM [facility] Hematocrit 31.9(L) 38.1 - 50.1 % CONVERSION FROM [facility] MCV 78.0(L) 82 - 98 fl CONVERSIO N FROM [facility] MCH 24.7(L) 25 - 35 pg CONVERSIO N FROM [facility] MCHC 31.7(L) 33 - 36 g/dl CONVERSION FROM [facility] RDW 18.0(H) 11.5 - 14.5 % CONVERSION FROM [facility] Platelet Count 293 150 - 450 K/ul CONVERSION FROM [facility] MPV 10.5 6 - 14 fl CONVERSION FROM [facility] Neutrophil 42(L) 50 - 70 % CONVERSIO N FROM [facility] Absolute Gran Ct 2.3 2.2 - 8.6 K/ul CONVERSION FROM [facility] Lymphocyte 42(H) 25 - 40 % CONVERSIO N FROM [facility] Absolute Lymph Ct 2.3 1.5 - 4.0 K/ul CONVERSION FROM [facility] Monocyte 12 4 - 12 % CONVERSION FROM [facility] Absolute [address] 0.7 0.16 - 1.26 K/ul CONVERSION FROM [facility] Eosinophil 3 0 - 3 % CONVERSIO N FROM [facility] Absolute Eos Ct (Conversion) 0.2 0.15 - 0.30 K/ul CONVERSION FROM [facility] Basophil 0 0 - 2 % CONVERSION FROM [facility] Absolute Baso Ct (Conversion) 0.0 0.0 - 0.21 K/ul CONVERSION FROM [facility] RELATIVE GRANULOYTES (CONVERSION) 0 % CONVERSION FROM [facility] Granulocytes(Aph eresis) 0 K/ul CONVERSION FROM [facility] Blood specimen (specimen) 07/26/2014 6:00 AM EDT 07/26/2014 7:15 AM EDT Dylan Coe MD LAB BLOOD ORDERABLES Final Resu lt CONVERSION FROM [facility] * Basic Metabolic Panel (07/26/2014 6:00 AM EDT) Pathologist [facility] Sodium 139 134 - 145 mmol/L CONVERSION FROM [facility] Potassium, Plasma 4.3 3.5 - 5.1 mmol/L CONVERSION FROM [facility] Chloride 104 96 - 108 mmol/L CONVERSION FROM [facility] Total CO2 24 22 - 32 mmol/L CONVERSION FROM [facility] Anion Gap 11 6 - 16 CONVERSION FROM [facility] Calcium 8.7 8.5 - 10.5 mg/dL CONVERSION FROM [facility] Glucose, Blood 86 74 - 118 mg/dL CONVERSION FROM [facility] BUN 14 6 - 23 mg/dL CONVERSION FROM [facility] Creatinine 0.7 0.5 - 1.2 mg/dL CONVERSION FROM [facility] Glomerular Filtration Rate > 60 >60 ml/min CONVERSION FROM [facility] Result 20 6 - 25 RATIO CONVERSION FROM [facility] Hemolysis Normal CONVERSION FROM [facility] Blood specimen (specimen) 07/26/2014 6:00 AM EDT 07/26/2014 7:15 AM EDT Dylan Coe MD LAB BLOOD ORDERABLES Final Resu lt CONVERSION FROM [facility] documented in this encounter Visit Diagnoses Not on filedocumented in this encounter Care Teams Lock Fitter Relationship Specialty Start Date End Date None, PcpMD PCP - General 07/28/14 01/13/19 South Khanna MD [address] [place] [id number] PCP - General 01/14/19 None, Pcp, 07/28/14 documented as of this encounter
--- OUTSIDE RECORDS SUMMARY | 2024-07-12 22:53 | XMS_ITS | Clinical Summary ---
Author Organization [facility] Address [address] [place] [address] Phone Care Team Providers Care Global Recruiter Name Role Phone Physician, No Pcp Primary [...] by mouth at bedtime. Last filled per [facility] 09/29 Active buPROPion XL (WELLBUTRIN XL) 300 mg 24 hr tablet Take 300 mg by mouth 1 (one) time each day. Do not crush, chew, or split. Active levothyroxine sodium (TIROSINT) 25 mcg capsule [...] hours as needed for shortness of breath. 5 Active amLODIPine (NORVASC) 5 mg tablet Take 1 tablet (5 mg total) by mouth 1 (one) time each day. 1 025 Active ARIPiprazole (ABILIFY) 5 mg tablet Take 1 tablet (5 mg total) by mouth 1 (one) time each day. 8 Active benztropine (COGENTIN) 1 mg tablet Take 1 tablet (1 mg total) by mouth 1 (one) time each day. Active carbidopa-levodopa (SINEMET) 25-250 mg per tablet Take 1 tablet by mouth 3 times daily. 5 Active divalproex (DEPAKOTE ER) 500 mg 24 hr tablet Take 1 tablet (500 mg total) by mouth 1 (one) time each day. Active ferrous gluconate (FERGON) 324 mg (37.5 mg iron) tablet Take 1 tablet (324 mg total) by mouth 1 (one) time each day. 4 Active furosemide (LASIX) 40 mg tablet Take 0.5 tablets (20 mg total) by mouth daily. 4 Active metoprolol tartrate (LOPRESSOR) 25 mg tablet Take 1 tablet (25 mg total) by mouth 2 times daily. 8 Active potassium chloride (KLOR-CON M20) 20 mEq CR tablet Take 1 tablet (20 mEq total) by mouth 1 (one) time each day. 4 Active primidone (MYSOLINE) 50 mg tablet Take 1 tablet (50 mg total) by mouth daily. 3 Active sertraline (ZOLOFT) 100 mg tablet Take 1 tablet (100 mg total) by mouth daily. 3 Active tiotropium (Spiriva Respimat) 1.25 mcg/actuation inhalation spray Inhale 2 puffs by mouth daily. 4 Active buPROPion (WELLBUTRIN) 75 mg tablet Take 4 tablets (300 mg total) by mouth 2 times daily. Active levothyroxine (SYNTHROID, LEVOTHROID) 25 mcg tablet Take 1 tablet (25 mcg total) by mouth daily. 3 Active lisinopriL (PRINIVIL,ZESTRIL) 5 mg tablet Take 1 tablet (5 mg total) by mouth daily. 4 Active metFORMIN XR (GLUCOPHAGE-XR) 500 mg 24 hr tablet Take 1 tablet (500 mg total) by mouth daily. 4 Active metoprolol succinate (TOPROL-XL) 25 mg 24 hr tablet Take 1 tablet (25 mg total) by mouth 2 times daily. 5 Active rivaroxaban (Xarelto) 20 mg tablet Take 1 tablet (20 mg total) by mouth 1 (one) time each day with dinner. 3 Active melatonin 3 mg disintegrating tablet Take 1 tablet (3 mg total) by mouth at bedtime. Active LORazepam (ATIVAN) 1 mg tablet Take 1 tablet (1 mg total) by mouth 1 (one) time each day if needed for anxiety. 5 Active lidocaine 4 % patch Apply 1 patch topically daily. 4 Active lacosamide (VIMPAT) 100 mg tablet Take 1 tablet (100 mg total) by mouth 2 times daily. Max Daily Amount: 200 mg 5 Active insulin detemir (LEVEMIR) 100 unit/mL injection 5 Units at bedtime. Active gabapentin (NEURONTIN) 100 mg capsule Take 1 capsule (100 mg total) by mouth 3 times daily. Active haloperidoL (HALDOL) 0.5 mg tablet Take 2 tablets (1 mg total) by mouth 2 (two) times a day. 5 Active ferrous sulfate 325 mg (65 mg elemental iron) tablet Take 1 tablet (325 mg total) by mouth 1 (one) time each day. Active Breo Ellipta 100-25 mcg/dose inhaler Inhale 1 puff by mouth 1 (one) time each day. 4 Active cyclobenzaprine (FLEXERIL) 10 mg tablet Take 1 tablet (10 mg total) by mouth 3 times daily as needed. 4 Active ranolazine (RANEXA) 500 mg 12 hr tablet Take 1 tablet (500 mg total) by mouth 2 (two) times a day. Active cyanocobalamin (VITAMIN B-12) 1,000 mcg tablet Take 1 tablet (1,000 mcg total) by mouth daily. 2 025 famotidine (PEPCID) 20 mg tablet Take 1 tablet (20 mg total) by mouth 1 (one) time each day. 4 025 QUEtiapine (SEROquel) 300 mg tablet Take 1 tablet (300 mg total) by mouth at bedtime. 5 025 QUEtiapine (SEROquel) 25 mg tablet Take 1 tablet (25 mg total) by mouth 2 times daily. 1 025 tamsulosin (FLOMAX) 0.4 mg 24 hr capsule Take 1 capsule (0.4 mg total) by mouth daily. 1 025 atorvastatin (LIPITOR) 40 mg tablet Take 1 tablet (40 mg total) by mouth daily. 3 025 clopidogreL (PLAVIX) 75 mg tablet Take 1 tablet (75 mg total) by mouth daily. 5 025 QUEtiapine (SEROquel) 400 mg tablet Take 1 tablet (400 mg total) by mouth at bedtime. 3 025 QUEtiapine (SEROquel) 100 mg tablet Take 1 tablet (100 mg total) by mouth 2 times daily. 3 025 Active Problems Problem Noted Date Diagnosed Date Chest pain, unspecified type 01/02/2022 Chest pain 01/01/2022 Schizophrenia 01/01/2022 Bipolar 1 disorder 01/01/2022 CAD (coronary artery disease) 01/01/2022 Encounters Date Type Department Care Team Description 05/26/2024 6:06 PM EST - 05/28/2024 1:13 PM [facility] [address] [place] [phone] Jus Klein, Jus Newby MD Durkin, Louis J, MD Cheng, Ting Ho Danny, DO Millay, Scot A, MD Severe recurrent major depression with psychotic features (CMS/HCC) (Primary Dx); Precordial pain; Depression with suicidal ideation Discharge Disposition: [facility] 05/09/2024 7:29 PM EST - 05/09/2024 9:24 PM [facility] [address] [place] [phone] Ray Hernandez DO Other chest pain (Primary Dx) Discharge Disposition: Home or Self Care 04/30/2024 8:18 PM EST - 05/01/2024 3:15 AM EST Emergency [facility] [address] [place] [phone] Chest pain, unspecified type (Primary Dx) Discharge Disposition: Home or Self Care from Last 3 Months Surgical History Surgery Date Site/Laterality Comments CORONARY ANGIOPLASTY WITH ST ENT PLACEMENT 04/09/1999 - 04/08/2000 GASTRIC BYPASS Medical History Medical History Date Comments Hypertension Diabetes mellitus (CMS/HCC) HLD (hyperlipidemia) DIMITRIS (obstructive sleep apnea) Myocardial infarction (CMS/HCC) x4 Bipolar disorder Schizophrenia PTSD (post-traumatic stress disorder) Morbid obesity (CMS/HCC) A-fib (CMS/HCC) Pulmonary embolism 2020 Family History Medical History Relation Name [...] Td Vaccines (1 - Tdap) 08/01/1995 Hepatitis B Vaccines (1 of 3 [...] Vaccine ( season) 2023 03/30/2021, 08/20/2020, 06/07/2020 Diabetes: Blood Sugar Control Test (HGBA1C) 10/02/2024 04/03/2024, 03/23/2024, 03/23/2024, Additional history exists Influenza Vaccine (Season Ended) 2024 03/05/2021, 01/02/2020, 12/12/2018, Additional history exists Diabetes: Annual GFR (Glomerular [...] Procedure Name Priority Date/Time Associated Diagnosis Comments ECG ANNOTATED 05/30/2024 ECG ANNOTATED 05/30/2024 CT ANGIO CHEST WO AND/OR W CONTRAST [...] PM EST METHADONE SCREEN, URINE STAT 05/26/19 6:23 PM EST PHENCYCLIDINE, URINE STAT 05/26/2024 [...] 04/30/2024 from Last 3 Months Results * ECG-Annotated (05/30/2024) Only the most recent of3 resultswithin the time period is included. us Provider Onbase MD ECG ORDERABLES Final Result * CT Angio Chest wo and/or w [...] unchanged. The lungs are otherwise clear. Code 95980 -------- FINAL REPORT -------- Dictated By: Toney Leger Dictated Date: 05/27/2024 08:42 ET Assigned Physician: Toney Leger Reviewed and Electronically Signed By: Toney Leger Signed Date: 05/27/2024 08:44 ET Workstation ID: [id number] Transcribed By: Self Edit Transcribed Date: 05/27/2024 [...] is unchanged. The lungs are otherwiseclear. Code 43729 -------- FINAL REPORT -------- Dictated By: Toney Leger Dictated Date: 05/27/2024 08:42 ET Assigned Physician: Toney Leger Reviewed and Electronically Signed By: Toney Leger Signed Date: 05/27/2024 08:44 ET Workstation ID: [id number] Transcribed By: Self Edit Transcribed Date: 05/27/2024 08:42 ET us Jus Klein DO IMG XR PROCEDURES Final Result * (ABNORMAL) CBC auto differential (05/26/2024 8:51 PM EST) Only the most recent of3 resultswithin the time period is included. WBC 5.2 4.8 - 10.8 /[facility] LAB HEMETOLOGY METHOD 05/26/2024 9:08 PM EST [facility] RBC 4.60 4.50 - 5.50 M/mcL LAB HEMETOLOGY METHOD 05/26/2024 9:08 PM [facility] Hemoglobin 10.9(L) 13.5 - 17.5 g/dL LAB HEMETOLOGY METHOD 05/26/2024 9:08 PM [facility] Hematocrit 35.5(L) 42.0 - 54.0 % LAB HEMETOLOGY METHOD 05/26/2024 9:08 PM [facility] MCV 77.3(L) 79.0 - 98.0 FL LAB HEMETOLOGY METHOD 05/26/2024 9:08 PM [facility] MCH 23.7(L) 27.0 - 32.0 pcg LAB HEMETOLOGY METHOD 05/26/2024 9:08 PM [facility] MCHC 30.7(L) 32.0 - 37.0 g/dL LAB HEMETOLOGY METHOD 05/26/2024 9:08 PM [facility] RDW 15.9(H) 11.0 - 15.0 % LAB HEMETOLOGY METHOD 05/26/2024 9:08 PM [facility] Platelets 377 130 - 400 K/mcL LAB HEMETOLOGY METHOD 05/26/2024 9:08 PM [facility] MPV 10.1 7.0 - 11.0 FL LAB HEMETOLOGY METHOD 05/26/2024 9:08 PM [facility] NRBC 0.0 <1.0 % LAB HEMETOLOGY METHOD 05/26/2024 9:08 PM [facility] NRBC Absolute 0.00 <0.10 K/mcL LAB HEMETOLOGY METHOD 05/26/2024 9:08 PM [facility] Neutrophils Relative 59.1 % LAB HEMETOLOGY METHOD 05/26/2024 9:08 PM [facility] Lymphocytes Relative 26.5 % LAB HEMETOLOGY METHOD 05/26/2024 9:08 PM [facility] Monocytes Relative 11.3 % LAB HEMETOLOGY METHOD 05/26/2024 9:08 PM [facility] Eosinophils Relative 1.9 % LAB HEMETOLOGY METHOD 05/26/2024 9:08 PM [facility] Basophils Relative 0.4 % LAB HEMETOLOGY METHOD 05/26/2024 9:08 PM [facility] Immature Granulocytes Relative 0.8 % LAB HEMETOLOGY METHOD 05/26/2024 9:08 PM [facility] Neutrophils Absolute 3.07 1.50 - 7.00 K/mcL LAB HEMETOLOGY METHOD 05/26/2024 9:08 PM [facility] Lymphocytes Absolute 1.38 1.00 - 5.00 K/mcL LAB HEMETOLOGY METHOD 05/26/2024 9:08 PM [facility] Monocytes Absolute 0.59 0.20 - 1.00 K/mcL LAB HEMETOLOGY METHOD 05/26/2024 9:08 PM [facility] Eosinophils Absolute 0.10 0.00 - 0.50 K/mcL LAB HEMETOLOGY METHOD 05/26/2024 9:08 PM [facility] Basophils Absolute 0.02 0.00 - 0.20 K/mcL LAB HEMETOLOGY METHOD 05/26/2024 9:08 PM [facility] Immature Granulocytes Absolute 0.04(H) 0.00 - 0.03 K/mcL LAB HEMETOLOGY METHOD 05/26/2024 9:08 PM [facility] Blood Venous blood specimen / Unknown Venipuncture / Unknown 05/26/2024 8:51 PM EST 05/26/2024 8:58 PM EST us Jus Klein DO LAB BLOOD ORDERABLES Final Res ult Performing Organization Address City/[facility]/ZIP Co de Phone Number [facility] [address] [place] [address], [place] [phone] * Activated partial thromboplastin time (05/26/2024 8:51 PM EST) aPTT 35.5 24.1 - 39.3 sec LAB COAGULATION METHOD 05/26/2024 9:16 PM EST [facility] Blood Venous blood specimen / Unknown Venipuncture / Unknown 05/26/2024 8:51 PM EST 05/26/2024 8:58 PM EST us Jus Klein DO LAB BLOOD ORDERABLES Final Res ult Performing Organization Address [facility] Co de Phone Number [facility] [address] [place] [address], [place] [phone] * Prothrombin time with INR (05/26/2024 8:51 PM EST) Only the most recent of2 resultswithin the time period is included. Protime 13.7 10.6 - 13.9 sec LAB COAGULATION METHOD 05/26/2024 9:16 PM EST [facility] INR 1.1 LAB COAGULATION METHOD 05/26/2024 9:16 PM EST [facility] Blood Venous blood specimen / Unknown Venipuncture / Unknown 05/26/2024 8:51 PM EST 05/26/2024 8:58 PM EST us Jus Klein DO LAB BLOOD ORDERABLES Final Res ult Performing Organization Address [facility]/ZIP Co de Phone Number [facility] [address] [place] [address], [place] [phone] * Comprehensive metabolic panel (05/26/2024 8:51 PM EST) Only the most recent of3 resultswithin the time period is included. Sodium 136 133 - 145 mmol/L LAB CHEMISTRY METHOD 05/26/2024 9:35 PM [facility] Potassium 4.0 3.5 - 5.5 mmol/L LAB CHEMISTRY METHOD 05/26/2024 9:35 PM [facility] Chloride 105 96 - 110 mmol/L LAB CHEMISTRY METHOD 05/26/2024 9:35 PM [facility] CO2 23 21 - 32 mmol/L LAB CHEMISTRY METHOD 05/26/2024 9:35 PM [facility] Anion Gap 8 3 - 11 LAB CHEMISTRY METHOD 05/26/2024 9:35 PM [facility] Glucose 86 70 - 100 mg/dL LAB CHEMISTRY METHOD 05/26/2024 9:35 PM [facility] BUN 14 5 - 25 mg/dL LAB CHEMISTRY METHOD 05/26/2024 9:35 PM [facility] Creatinine 0.73 0.70 - 1.30 mg/dL LAB CHEMISTRY METHOD 05/26/2024 9:35 PM [facility] eGFR 113 >=60 mL/min/1. 73m2 LAB CHEMISTRY METHOD 05/26/2024 9:35 PM [facility] Comment:Calculation based on the??Chronic Kidney Disease Epidemiology Collaboration (CKD-EPI) equation refit??without adjustment for race. BUN/Creatinine Ratio 19.2 LAB CHEMISTRY METHOD 05/26/2024 9:35 PM [facility] Calcium 8.9 8.5 - 10.5 mg/dL LAB CHEMISTRY METHOD 05/26/2024 9:35 PM [facility] AST (SGOT) 17 10 - 42 unit/L LAB CHEMISTRY METHOD 05/26/2024 9:35 PM [facility] ALT (SGPT) 21 10 - 60 unit/L LAB CHEMISTRY METHOD 05/26/2024 9:35 PM [facility] Alkaline Phosphatase 106 42 - 121 unit/L LAB CHEMISTRY METHOD 05/26/2024 9:35 PM EST [facility] Total Protein 6.7 6.0 - 8.0 g/dL LAB CHEMISTRY METHOD 05/26/2024 9:35 PM EST [facility] Albumin 3.5 3.2 - 5.0 g/dL LAB CHEMISTRY METHOD 05/26/2024 9:35 PM EST [facility] Total Bilirubin 0.2 0.0 - 1.4 mg/dL LAB CHEMISTRY METHOD 05/26/2024 9:35 PM EST [facility] Blood Venous blood specimen / Unknown Venipuncture / Unknown 05/26/2024 8:51 PM EST 05/26/2024 8:58 PM EST us Jus Klein DO LAB BLOOD ORDERABLES Final Res ult Performing Organization Address [facility] Co de Phone Number [facility]) [facility] [address] [place] [address], [place] [phone] * ECG 12 lead (05/26/2024 7:48 PM EST) Only the most recent of4 resultswithin the time period is included. Ventricular Rate ECG 70 BPM GEMUSE Atrial Rate 70 BPM GEMUSE P-R Interval 192 ms GEMUSE QRS Duration 100 ms GEMUSE Q-T Interval 390 ms GEMUSE QTc 421 ms GEMUSE P Wave Sparkman 12 degrees GEMUSE R Sparkman 29 degrees GEMUSE T Sparkman 53 degrees GEMUSE ECG Interpretation Sinus rhythm with occasional Premature ventricular complexes Otherwise normal ECG When compared with ECG of 26-MAY-2024 17:52, (unconfirmed) No significant change was found Confirmed by Skye LALA JOHN ([id number]) on 05/27/2024 7:49:26 AM GEMUSE 05/26/2024 7:48 PM EST 05/27/2024 7:49 AM EST us Jus P Neenan DO ECG ORDERABLES Final Result Performing Organization Address City/[facility]/ZIP Co de Phone Number GEMUSE * Troponin I high sensitivity (05/26/2024 7:34 PM EST) Only the most recent of6 resultswithin the time period is included. [facility] High Sensitivity Troponin I <3 <=79 ng/L LAB CHEMISTRY METHOD 05/26/2024 8:15 PM EST [facility] Blood Venous blood specimen / Unknown Venipuncture / Unknown 05/26/2024 7:34 PM EST 05/26/2024 7:41 PM EST Narrative [facility] - 05/26/2024 8:15 PM EST High levels of biotin in samples may falsely decrease hsTroponin values. ??Use caution when interpreting hsTroponin results in patients taking biotin who exhibit renal impairment (eGFR <60) or in patients taking more than 20 mg/day of biotin. us Jus Klein DO LAB BLOOD ORDERABLES Final Res ult Performing Organization Address [facility] Co de Phone Number [facility] [address] [place] [address], [place] [phone] * B-type natriuretic peptide (05/26/2024 6:24 PM EST) Only the most recent of3 resultswithin the time period is included. [facility] BNP 18 <=100 pcg/mL LAB CHEMISTRY METHOD 05/26/2024 7:47 PM EST [facility] Blood Venous blood specimen / Unknown Venipuncture / Unknown 05/26/2024 6:24 PM EST 05/26/2024 7:06 PM EST us Jus Klein DO LAB BLOOD ORDERABLES Final Res ult Performing Organization Address City/[facility]/ZIP Co de Phone Number [facility] [address] [place] [address], [place] [phone] * Magnesium (05/26/2024 6:24 PM EST) Only the most recent of3 resultswithin the time period is included. Magnesium 2.0 1.9 - 2.6 mg/dL LAB CHEMISTRY METHOD 05/26/2024 7:53 PM EST [facility] Blood Venous blood specimen / Unknown Venipuncture / Unknown 05/26/2024 6:24 PM EST 05/26/2024 7:06 PM EST us Jus Klein DO LAB BLOOD ORDERABLES Final Res ult Performing Organization Address [facility] Co de Phone Number [facility] [address] [place] [address], [place] [phone] * Lipase (05/26/2024 6:24 PM EST) Only the most recent of3 resultswithin the time period is included. Lipase 26 13 - 75 unit/L LAB CHEMISTRY METHOD 05/26/2024 7:53 PM EST [facility] Blood Venous blood specimen / Unknown Venipuncture / Unknown 05/26/2024 6:24 PM EST 05/26/2024 7:06 PM EST us Jus Klein DO LAB BLOOD ORDERABLES Final Res ult Performing Organization Address [facility]/ZIP Co de Phone Number [facility] [address] [place] [address], [place] [phone] * Ethanol (05/26/2024 6:24 PM EST) Ethanol Level <3 0 - 10 mg/dL LAB CHEMISTRY METHOD 05/26/2024 7:53 PM EST [facility] Blood Venous blood specimen / Unknown Venipuncture / Unknown 05/26/2024 6:24 PM EST 05/26/2024 7:06 PM EST us Jus Klein DO LAB BLOOD ORDERABLES Final Res ult Performing Organization Address [facility]/ZIP Co de Phone Number [facility] [address] [place] [address], [place] [phone] * (ABNORMAL) Acetaminophen level (05/26/2024 6:24 PM EST) Acetaminophen Level <2.0(L) 10.0 - 30.0 mcg/mL LAB CHEMISTRY METHOD 05/26/2024 7:53 PM EST [facility] Blood Venous blood specimen / Unknown Venipuncture / Unknown 05/26/2024 6:24 PM EST 05/26/2024 7:06 PM EST Jus Klein LAB BLOOD ORDERABLES Final Res ult Performing Organization Address [facility] Co de Phone Number [facility] [address] [place] [address], [place] [phone] * (ABNORMAL) Salicylate level (05/26/2024 6:24 PM EST) Salicylate Level <1.7(L) 2.0 - 29.0 mg/dL LAB CHEMISTRY METHOD 05/26/2024 7:53 PM EST [facility] Blood Venous blood specimen / Unknown Venipuncture / Unknown 05/26/2024 6:24 PM EST 05/26/2024 7:06 PM EST Jus Klein DO LAB BLOOD ORDERABLES Final Res ult Performing Organization Address [facility] Co de Phone Number [facility] [address] [place] [address], [place] [phone] * (ABNORMAL) Drug abuse screen 8a panel, urine (05/26/2024 6:23 PM EST) Amphetamine Screen, Ur Negative Negative LAB CHEMISTRY METHOD 7:52 PM EST [facility] Comment:Certain OTC medicati ons containing ephedrine, phenylephrine, pseudoephedrine and phenylpropanolamine can cause false positive results. Barbiturate Screen, Ur Negative Negative LAB CHEMISTRY METHOD 5 7:52 PM [facility] Benzodiazepine Screen, Ur Negative Negative LAB CHEMISTRY METHOD 5 7:52 PM [facility] Cocaine Screen, Ur Negative Negative LAB CHEMISTRY METHOD 5 7:52 PM [facility] Opiate Screen, Ur Positive(A ) Negative LAB CHEMISTRY METHOD 5 7:52 PM [facility] Cannabinoid (THC) Screen, Ur Negative Negative LAB CHEMISTRY METHOD 5 7:52 PM [facility] Comment:Specimens from patie nts taking pantoprazole sodium (Protonix) have been shown to produce false positive results. Oxycodone Screen, Ur Positive(A ) Negative LAB CHEMISTRY METHOD 5 7:52 PM [facility] Fentanyl, Ur Negative Negative LAB CHEMISTRY METHOD 5 7:52 PM [facility] Urine Urine specimen obtained by clean catch procedure / Unknown Non-blood Collection / Unknown 05/26/2024 6:23 PM EST 05/26/2024 7:09 PM EST [facility] - 05/26/2024 7:52 PM EST Assay [...] ORDERABLES Final Res ult Performing Organization Address [facility] Co de Phone Number [facility] [address] [place] [address], [place] [phone] * Buprenorphine screen, urine (05/26/2024 6:23 PM EST) Buprenorphine Screen Urine Negative Negative LAB CHEMISTRY METHOD 05/26/2024 7:48 PM EST [facility] Urine Urine specimen obtained by clean catch procedure / Unknown Non-blood Collection / Unknown 05/26/2024 6:23 PM EST 05/26/2024 7:09 PM EST Narrative [facility] - 05/26/2024 7:48 PM EST Assay cutoff 5 ng/mL Semi-quantitative assay for screening purposes only. Unconfirmed screening result should not be used for non-medical purposes. *ALTERNATE METHOD CONFIRMATION DONE UPON REQUEST ONLY* Jus Klein DO LAB URINE ORDERABLES Final Res ult Performing Organization Address [facility] de Phone Number [facility] [address] [place] [address], [place] [phone] * Methadone, urine (05/26/2024 6:23 PM EST) Pathologist [facility] Methadone Screen, Urine Negative Negative LAB CHEMISTRY METHOD 05/26/2024 7:51 PM EST [facility] Comment: Assay cutoff 300 ng/mL Semi-quantitative assay for screening purposes only. Unconfirmed screening result should not be used for non-medical purposes. *ALTERNATE METHOD CONFIRMATION DONE UPON REQUEST ONLY* Urine Urine specimen obtained by clean catch procedure / Unknown Non-blood Collection / Unknown 05/26/2024 6:23 PM EST 05/26/2024 7:09 PM EST Jus Klein DO LAB URINE ORDERABLES Final Res ult Performing Organization Address City/[facility]/ZIP Co de Phone Number [facility] [address] [place] [address], [place] [phone] * Phencyclidine, urine (05/26/2024 6:23 PM EST) PCP Scrn, Ur Negative Negative LAB CHEMISTRY METHOD 05/26/2024 7:51 PM EST [facility] Comment: Assay cutoff 25 ng/mL Semi-quantitative assay for screening purposes only. Unconfirmed screening result should not be used for non-medical purposes. *ALTERNATE METHOD CONFIRMATION DONE UPON REQUEST ONLY* Urine Urine specimen obtained by clean catch procedure / Unknown Non-blood Collection / Unknown 05/26/2024 6:23 PM EST 05/26/2024 7:09 PM EST Jus Klein DO LAB URINE ORDERABLES Final Res ult Performing Organization Address [facility] Co de Phone Number [facility] [address] [place] [address], [place] [phone] * ECG-Outside (05/09/2024) Only the most recent of2 resultswithin the time period is included. Provider Onbase ECG ORDERABLES Final Result from Last 3 Months Insurance [facility] Member Subscriber Plan / Payer (Ef fective 2014-Present) Name:Charlie Rios Relation to Subscriber:Self Name:Charlie Rios Payer ID:[id number] Group ID:[id number] Type:Not on file Address: [place] [address] [id number] Advance Directives * Full Code - Default [...] currently active code status orders. Care Teams Global Recruiter Relationship Specialty Start Date End Date Physician, No Pcp PCP - General 01/25/24
--- OUTSIDE RECORDS SUMMARY | 2024-07-12 22:53 | XMS_ITS | Encounter Summary ---
Author Organization [facility] Address [address] [place] [address] Care Team Providers Care Sap Basis Administrator Name Role Phone South Khanna MD Primary Care Provider [phone] Reason for Visit * Reason Comments Hospital F/U Encounter Details Date Type Department Care Team ([facility] st Contact Info) Description 12/26/2018 Telephone [facility] Primary Care Internal Medicine [address] [place] [phone] South Khanna MD [facility] Care [address] [place] [address] Hospital F/U Social History Tobacco Use Types [...] he has been told to go to [facility]. It is the patient that does not follow instructions and chooses to go to [facility]. Future Appointments Date Time Provider Department Phone 01/03/19 11:00 AM JUNIOR Germain [facility] Primary Care Internal Medicine [address] 06/26/19 1:00 PM South Khanna MD [facility] Primary Care Internal Medicine [address] * Telephone Encounter - Kailey Alonso - 12/26/2018 10:53 AM EDT Left Voicemail He may see Mirtha next week. Please advise them that in the future the patient should be referred to the emergency room at [facility] as this is the hospital that [...] for this. Please call the nurse at [facility]. He may see Mirtha next week. Please advise them that in the future the patient should be referred to the emergency room at [facility] as this is the hospital that I utilize and he is on [facility] one care which mandates that they use this facility. This has been an ongoing problem with their referral pattern. * Telephone Encounter - Kailey Alonso - 12/26/2018 9:52 AM EDT Marva Toscano [facility] home looking for a hospital f/u. Patient [...] documented as of this encounter Care Teams Sap Basis Administrator Relationship Specialty Start Date End Date South Khanna MD PCP - General Internal Medicine 12/18/18 10/02/19 documented as of this encounter
--- OUTSIDE RECORDS SUMMARY | 2024-07-12 22:53 | XMS_ITS | Encounter Summary ---
Author Organization [facility]ier [facility] Address [address] [place] [address] Care Team Providers Care Ice Crusher Name Role Phone None, Pcp Primary Care Provider Unavailabl e None, Pcp Unavailable Unavailable South Khanna MD Primary Care Provider [phone] Encounter Details Date Type Department Care Team [...] Torres MD - 11/24/2014 7:51 AM EDT [facility] [employer] Name: CHARLIE HAYWOOD MR # [id number] : [birth year] Age: 38 Sex: M PROGRESS NOTE ADM IN Location: *[facility] Room: [facility] cc: Ayaan Torres M.D. Subjective Date/Time [...] on filedocumented in this encounter Care Teams Ice Crusher Relationship Specialty Start Date End Date None, MD Baldemar PCP - General 07/28/14 01/13/19 South Khanna MD [address] [place] [address] PCP - General 01/14/19 None, Pcp, MD 07/28/14 documented as of this encounter
--- OUTSIDE RECORDS SUMMARY | 2024-07-12 22:53 | XMS_ITS | Clinical Summary ---
Author Organization [facility] Address [address] [place] [address] Care Team Providers Care Sales Support Manager Name Role Phone Unknown, Pcp MD Primary [...] 2021 FIT/iFOBT (CRC) 2021 SIGMOIDOSCOPY (CRC) 2021 COVID-19 IMMUNIZATION ( - season) 2023 03/30/2021, 08/20/2020, 06/07/2020 INFLUENZA VACCINE (Season Ended) 2024 03/05/2021, 01/02/2020, 12/12/2018, Additional history exists ZOSTER VACCINE (1 of 2) 2026 RSV IMMUNIZATION (1 - 1-dose 75+ series) 08/01/2051 IPV VACCINES Aged Out No longer eligi ble based on patient's age to complete this topic MENINGOCOCCAL B VACCINE Aged Out No l onger eligible based on patient's age to complete this topic Insurance [employer] [facility] DUAL (HMO DSNP) [employer] DUAL (HMO DSNP) [place] [id number] Advance Directives For more information, please contact: [phone] * Full Code (Latest Code Status on [...] 2:30 AM 03/28/2017 9:10 AM Care Teams Sales Support Manager Relationship Specialty Start Date End Date Unknown, MD Baldemar Unknown Address Unknown City, PCP - General Internal Medicine 02/08/24 Unknown, PcpMD Unknown Address Unknown City, 02/08/24 Unknown, PcpMD Unknown Address Unknown City, 10/17/23
--- OUTSIDE RECORDS SUMMARY | 2024-07-12 22:53 | XMS_ITS ---
Author Organization [facility] Address [address] [place] [address] Care Team Providers Care Ruffling Hemmer Automatic Name Role Phone Jus Avery Unavailable [phone] REASON FOR VISIT bad address on file Encounters Encounter Location Date Provider Diagnosis [facility] [address] [place] [address] 10/04/2023 Jus Avery Plan Of Treatment No Information Progress Notes * Charlie HAYWOODDOB: [birth year] (48 yo M)Acc No.[id number]:10/04/2023 Patient:?Charlie HAYWOOD :1975???Age:48 Y???Sex:Male Address:[address] [place] [phone] * true * Date:? Generated for Lopez mixon/Shaun/eTransmitting on:?07/12/2024 12:06 AM ROSIBEL
--- OUTSIDE RECORDS SUMMARY | 2024-07-12 22:53 | XMS_ITS | Encounter Summary ---
Author Organization [facility] Maier [facility] Address [address] [place] [address] Care Team Providers Care Cobbler Apprentice Name Role Phone None, Pcp Primary Care Provider Unavailabl e None, Pcp Unavailable Unavailable South Khanna MD Primary Care Provider Encounter Details Date Type Department Care Team (Late st Contact Info) Description 07/26/2014 Clinical Conversion Encounter Department of Cardiology [address] [place] [address] Dylan Coe MD [address] [place] [address] Social History Tobacco Use Types Packs/Day Years Used Date Smoking Tobacco: Never Assessed Sex and Gender Information Value Date Recorded Sex Assigned at Male 01/14/2019 2:03 PM EDT Legal Sex Male 3:08 PM EDT Gender Identity Male 01/14/2019 2:03 PM EDT Sexual Orientation Not on file documented as of this encounter Discharge Summaries * Dylan Coe MD - 10/26/2014 6:33 AM EDT [facility] Name: CHARLIE HAYWOOD [facility] R # [id number] [facility] : [birth year] Age: 38 Sex: M DIS Shahla DISCHARGE SUMMARY Location: Room: [facility] Admit Date: 07/25/14 Disch Date: 07/26/14 cc: [...] The patient says that 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 [...] Tejeda had got in touch with his income tax advisor and apparently he has had cardiac catheterization on 9 occasions, last one being as late as November of last year and at that time, it was nonobstructive coronary artery disease. Dictated by: Dylan Coe MD ELECTRONICALLY SIGNED 07/30/14 1507 T: SVETLANA 1011 1350 //ivnm// //add1// //add3// //add2// [id number] documented in this encounter Progress Notes * Dylan Coe MD - 11/24/2014 7:51 AM EDT [facility] Name: CHARLIE HAYWOOD [facility] MR # [id number] : [birth year] Age: 38 Sex: M PROGRESS NOTE ADM IN Location: Room: [facility] cc: Dylan Coe MD -- Subjective Date/Time [...] Rel Value (25 - 40 %) 38 Beckham Rel Value (4 - 12 %) 10 [...] Coe MD - 11/16/2014 9:49 AM EDT [facility] Name: CHARLIE HAYWOOD [facility] MR # [id number] [facility] : [birth year] Age: 38 Sex: M ADM Shahla PATIENT CARE REFERRAL PAGE 1 Location: Room: [facility] Admit Date: 07/25/14 - cc: Dylan Coe [...] on filedocumented in this encounter Care Teams Cobbler Apprentice Relationship Specialty Start Date End Date None, MD Baldemar PCP - General 07/28/14 01/13/19 South Khanna MD [address] [place] [address] PCP - General 01/14/19 Baldemar [place] MD 07/28/14 documented as of this encounter
--- OUTSIDE RECORDS SUMMARY | 2024-07-12 22:53 | XMS_ITS ---
Author Organization [facility] Address [address] [place], [place] [address] Care Team Providers Care Systems Support Specialist Name Role Phone ARNOLD KUMAR Primary Care [...] 1 tablet Orally Twice a day Active Kenmar Carbonate 600 MG 1 capsule Orall y [...] Provider Diagnosis [facility] [phone] [facility] [phone] 11/08/2023 ARNOLD KUMAR Controlled type 2 diabetes mellitus without complication, unspecified whether adjunct faculty for medical terminology insulin use E11.9 ; Hypothyroidism (acquired) E03.9 ; Hyperlipidemia, unspecified E78.5 and Lung nodule R91.1 Assessments Encounter Date Diagnosis (ICD Code) Assessment Notes Treatment Notes Treatment Clinical Notes Section Notes 11/08/2023 Controlled type 2 diabetes mellitus without complication, unspecified whether retirement insulin use (ICD-10 - E11.9) Continue on [...] diabetes m ellitus without complication, unspecified whether retirement insulin use Continue on Metformin, diabetic diet. Hypothyroidism (acquired) Continue on Le vothyroxine, monitor TSH. Hyperlipidemia, unspecified Continue on Atorvastatin, low cholesterol diet. Lung nodule Pulmonary consult. Other Ordered labs, cardio logy consult. Next Appt Details Follow Up: 3 Months, Reason: Progress Notes * Charlie HAYWOODDOB: [birth year] (48 yo M)Acc No.[id number]:11/08/2023 Progress Notes Patient:?Charlie HAYWOOD Provider:?ARNOLD KUMAR MD :1975???Age:48 Y???Sex:Male David e:11/08/2023 Address:[address] [place], [place] [phone] Pcp:JOSÉ SILVA Subjective: * Chief Complaints: * ???Chronic medical condition s. * HPI: ???Constitutional:?The patient 48-year-old male was seen for chronic medical conditions. The patient resides independently. The patient was discharged from [facility] on 11/01/23 for chest pain, he was at the community program after hospitalization and will be discharged home this week. The patient is being followed by psychiatrist, porcelain enameler, neurologist. * ROS:?General/Constitutional:?Change in appetite?denies.?Chills?denies.?Fever?denies.?Admits?Headache.?ENT:?Decreased hearing?denies.?Sore throat?denies.?Swollen glands?denies.?Ophthalmologic:?Blurred vision?denies.?Discharge?denies.?Eye Pain?denies.?Cardiovascular:?Chest pain at rest?denies.?Chest pain with exertion?denies.?Irregular heartbeat?denies.?Shortness of breath?denies.?Respiratory:?Cough?denies.?Admits?Shortness of breath.?Admits?Shortness of breath with exertion.?Wheezing?denies.?Gastrointestinal:?Abdominal pain?denies.?Diarrhea?denies.?Nausea?denies.?Vomiting?denies.?Skin:?Denies?Itching.?Denies?Rash.?Genitourinary:?Denies?Abdominal pain/swelling.?Denies?Blood in urine.?Denies?Difficulty urinating.?Denies?Frequent urination.?Denies?Painful urination.?Neurologic:?Dizziness?denies.?Fainting?denies.?Admits?Headache.?Endocrine:?Cold intolerance?denies.?Excessive thirst?denies.?Heat intolerance?denies.?Weight loss?denies.? * Medical History:? * Surgical History:?cardiac ca theterization 06/19/23Cholecystectomy in 2008, blood pressure has been gastric bypass 06/15/20082008 * Hospitalization/Major Diagno stic Procedure:?[facility] for chest pain, CAD, the patient undergone [...] Tablet 1 tablet Orally Once a day Kenmar Carbonate 600 MG Capsule 1 capsule Orally [...] 1 tablet Orally Once a day Taking Kenmar Carbonate 600 MG Capsule 1 capsule Orally [...] diabete s mellitus without complication, unspecified whether retirement insulin use - E11.9 (Primary)???2.?Hypothyroidism (acquired) - [...] MD Date: ?11/08/2023 Generated for Lopez mixon/Shaun/eTransmitting on:?07/12/2024 02:06 AM EDT History and Physical Notes * HPI (History of Present Illness) Category Sub-Category Detail Notes Category Not es Constitutional The patient [age]-year-old male was seen for chronic medical conditions. The patient resides independently. The patient was discharged from [facility] on 11/01/23 for chest pain, he was at the community program after hospitalization and will be discharged home this week. The patient is being followed by psychiatrist, porcelain enameler, neurologist. Examination Category Sub-Category Detail Notes Category Not es General Examination GENERAL APPEARANCE: in no ac luis manuel distress, alert and awake HEAD: normocephalic, atrau [...] lower extremity trace edema PSYCH: alert, oriented, kettle coordinator perative with exam, good eye contact, speech clear ORAL CAVITY: mucosa moist
--- OUTSIDE RECORDS SUMMARY | 2024-07-12 22:53 | XMS_ITS | Encounter Summary ---
Author Organization [facility]izzeth Maier [facility] Address [address] [place] [address] Care Team Providers Care Stone Paver Name Role Phone None, Pcp Primary Care Provider Unavailabl e None, Pcp Unavailable Unavailable South Khanna MD Primary Care Provider Encounter Details Date Type Department Care Team (Late st Contact Info) Description 07/26/2014 Clinical Conversion Encounter GENERAL CONVERSION Jc Inman MD [address] [place], [place] [address] [address] Social History Tobacco Use Types Packs/Day Years Used Date Smoking Tobacco: Never Assessed Sex and Gender Information Value Date Recorded Sex Assigned at Male 01/14/2019 2:03 PM EDT Legal Sex Male 3:08 PM EDT Gender Identity Male 01/14/2019 2:03 PM EDT Sexual Orientation Not on file documented as of this encounter H&P Notes * Jc Inman MD - 10/26/2014 6:33 AM EDT [facility] Name: CHARLIE HAYWOOD [facility] MR # [id number] [facility] : [birth year] Age: 38 Sex: M DIS Shahla HISTORY & PHYSICAL EXAM Location: [facility] Room: [facility] Admit Date: 07/26/14 - 07/29/14 cc: Skye Guillen MD _ DATE OF ADMISSION: 07/26/2014 PRIMARY CARE PHYSICIAN: [place] locally. CHIEF COMPLAINT: Chest pain. HISTORY OF PRESENT ILLNESS: This 38-year-old male with somewhat murky cardiac history was just discharged from [facility] early this morning after being worked up for chest pain. He ruled out for an acute coronary syndrome and was discharged to home. His workup consisted of cycle cardiac markers and EKGs. He did not have a stress test and did not see replenishment associate. He has had multiple workups in the [...] 2000 mg bid, Plavix 75 mg daily, [facility] Name: CHARLIE HAYWOOD [facility] MR # [id number] HISTORY & PHYSICAL continued Admit Date: 07/26/14 [...] continue with Flomax. 5. Borderline personality disorder. [facility] Name: CHARLIE HAYWOOD [facility] MR # [id number] HISTORY & PHYSICAL continued Admit Date: 07/26/14 6. Depression. He will continue his usual psychotropic medications. 7. Morbid obesity. Weight loss will be encouraged. Dictated by: Jc Inman M.D. ELECTRONICALLY SIGNED 08/21/14 1511 T: SVETLANA 1454 1532 //ivnm// //add1// //add3// //add2// [id number] documented in this encounter Plan of Treatment Not on file documented as of this encounter Visit Diagnoses Not on filedocumented in this encounter Care Teams Stone Paver Relationship Specialty Start Date End Date None, PcpMD PCP - General 07/28/14 01/13/19 South Khanna MD [address] [place] [address] PCP - General 01/14/19 None, MD Baldemar 07/28/14 documented as of this encounter
--- OUTSIDE RECORDS SUMMARY | 2024-07-12 22:53 | XMS_ITS | Encounter Summary ---
Author Organization [facility]izzeth Maier [facility] Address [address] [place] [address] Care Team Providers Care Word Processing Machine Operator Name Role Phone None, Pcp [...] Torres MD - 11/24/2014 7:51 AM EDT [facility] Name: CHARLIE HAYWOOD MR # [id number] : [birth year] Age: 38 Sex: M PROGRESS NOTE ADM IN Location: *[facility] Room: [facility] cc: Ayaan Torres M.D. Subjective Date/Time Note [...] on filedocumented in this encounter Care Teams Word Processing Machine Operator Relationship Specialty Start Date End Date None, PcpMD PCP - General 07/28/14 01/13/19 South Khanna MD [address] [place] [address] PCP - General 01/14/19 None, MD Baldemar 07/28/14 documented as of this encounter
--- OUTSIDE RECORDS SUMMARY | 2024-07-12 22:53 | XMS_ITS | Encounter Summary ---
Author Organization [facility] Address [address] [facility] [place] [address] Care Team Providers Care Shoe Packer Name Role Phone Trish Beckett Primary Care Provider Encounter Details Date Type Department Care Team (Late st Contact Info) Description 03/07/2020 Procedure [facility] [address] [place] [phone] Social History Tobacco Use Types Packs/Day [...] on filedocumented in this encounter Care Teams Shoe Packer Relationship Specialty Start Date End Date Trish Beckett [address],[place] [address] PCP - General 03/06/20 documented as of this encounter
--- OUTSIDE RECORDS SUMMARY | 2024-07-12 22:53 | XMS_ITS ---
Author Organization [facility] Address [address] [place], [place] [phone] Care Team Providers Care Childhood Teacher Name Role Phone ARNOLD KUMAR Primary Care Provider [phone] Encounters Encounter Location Date Provider Diagnosis [facility] [address] [place] [employer] [phone] 09/20/2023 ARNOLD KUMAR Plan Of Treatment No Information Progress Notes * Charlie HAYWOODDOB: [birth year] (48 yo M)Acc No.[id number]:09/20/2023 Progress Notes Patient:?Charlie HAYWOOD Provider:?ARNOLD KUMAR MD :1975???Age:48 Y???Sex:Male David e:09/20/2023 Address:[address] [place], [place] [phone] Subjective: * Chief Complaints: * ??? * Medical History:? Objective: * Vitals:? Assessment: Plan: * Treatment: * Images: * Electronic signature of DANNY KUMAR M.D. on 07/12/2024 at 10:52 PM EDT Sign off status: Pending * Provider:?ARNOLD KUMAR MD Date: ?09/20/2023 Generated for Lopez mixon/Shaun/eTransmitting on:?07/12/2024 10:52 PM EDT
--- OUTSIDE RECORDS SUMMARY | 2024-07-12 22:54 | XMS_ITS ---
Author Organization [facility] Address [address] [place], [place] [phone] Care Team Providers Care General Warehouse Worker Name Role Phone ARNOLD KUMAR Primary [...] Once a day for 30 days Active [place] Carbonate 600 MG 1 capsule Orall y [...] Risk Notes Problem Solitary nodule of lung ([id number]) Lung nodule (R91.1) Active confirmed Vital Signs Blood pressure systolic 124 mm Hg 10/03/19 24 Blood pressure diastolic 80 mm Hg 024 Heart Rate 72 /min 10/03/2023 Respiratory Rate 18 /min 10/03/2023 Encounters Encounter Location Date Provider Diagnosis [facility] [address] [place] [address] 10/03/2023 ARNOLD KUMAR Controlled type 2 diabetes mellitus without complication, unspecified whether laborer marine terminal insulin use E11.9 ; Hypothyroidism (acquired) E03.9 ; Hyperlipidemia, unspecified E78.5 and Lung nodule R91.1 Assessments Encounter Date Diagnosis (ICD Code) Assessment Notes Treatment Notes Treatment Clinical Notes Section Notes 10/03/2023 Controlled type 2 diabetes mellitus without complication, unspecified whether laborer marine terminal insulin use (ICD-10 - E11.9) Continue on [...] * Charlie HAYWOODDOB: [birth year] (48 yo M)Acc No.[id number]:10/03/2023 Progress Notes Patient:?Charlie HAYWOOD Provider:?ARNOLD KUMAR MD :1975???Age:48 Y???Sex:Male David e:10/03/2023 Address:[address] [place], [place] [phone] Pcp:JOSÉ SILVA Subjective: * Chief Complaints: * [...] ca theterization 06/19/23 * Hospitalization/Major Diagno stic Procedure:?[facility] for chest pain, CAD, the patient undergone [...] Tablet 1 tablet Orally Once a day [place] Carbonate 600 MG Capsule 1 capsule Orally [...] 1 tablet Orally Once a day Taking [place] Carbonate 600 MG Capsule 1 capsule Orally [...] diabete s mellitus without complication, unspecified whether laborer marine terminal insulin use - E11.9 (Primary)???2.?Hypothyroidism (acquired) - [...] MD Date: ?10/03/2023 Generated for Lopez mixon/Shaun/Soniaitting on:?07/12/2024 10:53 PM EDT History and Physical Notes * HPI [...]
[2024-07-12 22:58] LABS: Troponin-I High Sensitivity < 2.7 ng/L (<3.5-35.0)
[2024-07-13 00:33] VITALS: BP 134/86; PULSE 84; RESP 18; O2SAT 95
--- NOTE | 2024-07-13 00:49 | PC.NURSE ---
report given to makenna cash at [facility]
[2024-07-13 02:33] VITALS: BP 136/84; PULSE 75; RESP 16; O2SAT 95
[2024-07-13 03:19] VITALS: BP 136/84; PULSE 75; RESP 16; TEMP 36.7; O2SAT 95
== END 2024-07-13 03:20 | disposition home or self-care (01) ==
PROVIDERS: Emergency Provider Internal Medicine
DX: R07.89 Other chest pain (principal); F41.9 Anxiety disorder, unspecified; E11.9 Type 2 diabetes mellitus without complications; E78.5 Hyperlipidemia, unspecified; Z79.02 Long term (current) use of antithrombotics/antiplatelets; Z79.84 Long term (current) use of oral hypoglycemic drugs; Z79.899 Other long term (current) drug therapy
CPT/HCPCS: 36415; 80053; 84484; 85025; 93005; 99283; 99284

== ENCOUNTER → 2024-07-12 22:14 | Outpatient (BNV) | payer OTHER, SELFPAY | PROVIDERS: Emergency Provider Internal Medicine; Visit Provider Internal Medicine | DX: R07.9 Chest pain, unspecified (principal) | CPT/HCPCS: 93010 ==

== ENCOUNTER 2024-09-02 13:51 | Inpatient (IN) | payer OTHER, SELFPAY ==
[2024-09-02] VITALS (8 sets, daily range): BP systolic 118–141; BP diastolic 63–110; PULSE 65–89; RESP 12–23; TEMP 36.3–36.8; O2SAT 96–98; BMI 37.6
--- NOTE | ~2024-09-02 | XR_ITS ---
EXAMINATION: XR CHEST CLINICAL INFORMATION: cp COMPARISON: 06/02/2024. 04/21/2024. TECHNIQUE: 2 views of the chest were obtained. FINDINGS: The cardiac, hilar, and mediastinal contours are normal. There are low lung volumes. Lungs clear bilaterally. There is no pneumothorax or pleural effusion. There is no focal osseous or soft tissue abnormality. XR/XR chest 2V IMPRESSION: No active pulmonary disease. No change from 04/21/2024. Electronically signed by: Billy Bañuelos MD 09/02/2024 02:25 PM EDT
--- NOTE | 2024-09-02 13:54 | ECG_ITS ---
Test Reason : chest pain Blood Pressure : */* mmHG Vent. Rate : 67 BPM Atrial Rate : 67 BPM P-R Int : 150 ms QRS Dur : 96 ms QT Int : 398 ms P-R-T Axes : 7 18 52 degrees QTcB Int : 420 ms Normal sinus rhythm Normal ECG When compared with ECG of 12-Jul-2024 22:14, No significant change was found Referred By: Generic ED Physician Electronically Signed By: NAMAN CASTELLANOS MD
--- NOTE | 2024-09-02 14:03 | ED_ITS ---
HPI - Chest Pain General Chief Complaint: Chest Pain Stated Complaint: CP Time Seen by Provider: 09/02/24 14:23 Source: patient Mode of arrival: ambulatory Limitations: no limitations History of Present Illness ED Provider: Sushil Odonnell HPI narrative: 49 yold male with pmh of [place] six times with stents presents to the ED left sided chest pain that bgan around 11am radiating down left arm. patient also states vomitting and nausea. Patient denies any leg swelling, calf pain, pleurisy, recent long travel or recent surgery. patient states he tool his plavix. patient denies any pmh of drug use. Related Data Home Medications ?Medication ?Instructions ?Recorded ?Confirmed atorvastatin 40 mg tablet 40 mg PO BEDTIME 09/02/24 09/02/24 escitalopram oxalate 10 mg tablet 10 mg PO DAILY 09/02/24 09/02/24 fluticasone propionate 50 1 spray intranasal DAILY 09/02/24 09/02/24 mcg/actuation nasal spray,suspension hydroxyzine HCl 25 mg tablet 25 mg PO TID PRN anxiety 09/02/24 09/02/24 lisinopril 10 mg tablet 10 mg PO DAILY 09/02/24 09/02/24 metoprolol tartrate 50 mg tablet 50 mg PO BID 09/02/24 09/02/24 perphenazine 8 mg tablet 8 mg PO BID 09/02/24 09/02/24 primidone 50 mg tablet 50 mg PO DAILY 09/02/24 09/02/24 quetiapine 400 mg tablet 400 mg PO BEDTIME 09/02/24 09/02/24 Previous Rx's ?Medication ?Instructions ?Recorded cholecalciferol (vitamin D3) 10 10 mcg PO DAILY #30 tabs 06/02/24 mcg (400 unit) tablet (Vitamin D3) clopidogrel 75 mg tablet 75 mg PO DAILY #14 tabs 06/02/24 furosemide 20 mg tablet 20 mg PO DAILY #14 tabs 06/02/24 levothyroxine 25 mcg tablet 25 mcg PO DAILY@0600 #14 tabs 06/02/24 melatonin 3 mg tablet 3 mg PO BEDTIME #30 tabs 06/02/24 multivitamin (Daily-Marck tablet) 1 tab PO DAILY #30 tabs 06/02/24 pantoprazole 40 mg tablet,delayed 40 mg PO DAILY #14 tabs 06/02/24 release rivaroxaban 20 mg tablet (Xarelto) 20 mg PO DAILY@1700 #14 tabs 06/02/24 Allergies Allergy/AdvReac Type Severity Reaction Status Date / Time acetaminophen [From TYLENOL] Allergy Severe ANAPHYLAXIS Verified 09/02/24 14:03 aspirin [ASA] Allergy Severe ANAPHYLAXIS Verified 09/02/24 14:03 nitroglycerin [NITROGLYCERIN] Allergy Severe ANAPHYLAXIS Verified 09/02/24 14:03 amoxicillin [AMOXICILLIN] Allergy Mild RASH Verified 09/02/24 14:03 fish derived [fish] Allergy Anaphylaxis Verified 09/02/24 14:03 ibuprofen Allergy Anaphylaxis Verified 09/02/24 14:03 Poultry Allergy Anaphylaxis Verified 09/02/24 14:03 Review of Systems 2 Review of Systems: chest pain Yes all other systems are reviewed and are negative [facility] Past Medical History Medical History (Updated 09/04/24 @ 16:49 by Doris Giron DNP) Atypical chest pain Bipolar disorder Mood disorder PTSD (post-traumatic stress disorder) Depression History of pulmonary embolism BPH (benign prostatic hyperplasia) Diabetes Obesity Hypothyroid HLD (hyperlipidemia) CAD (coronary artery disease) Surgical History History of coronary artery stent placement Social History Social History Household Members: None Housing: Apartment Do you presently have visiting nurse or other home services: No Alcohol intake: never Patient Tobacco Use Status: Never used Tobacco e-Cigarette/Vaping Use: Never Used Second Hand Smoke Exposure: No service: No Current occupational status: unemployed Sexual orientation: Straight/Heterosexual Physical Exam 2 Vital Signs: Vital Signs: Last Vital Signs Temp 97.8 F 09/04/24 07:43 Pulse 66 09/04/24 07:43 Resp 14 09/04/24 07:43 BP 130/66 09/04/24 07:43 Pulse Ox 95 09/04/24 07:43 O2 Del Method Room Air 09/04/24 07:43 BMI result Body Mass Index 37.6 Const: General: cooperative, healthy appearing, comfortable, no acute distress, well developed, alert and awake Orientation/consciousness: patient oriented x3 HEENT: Head: Yes normal to inspection, Yes No palpable skull fracture present, Yes normocephalic and Yes atraumatic Eyes: General: appearance normal, both eyes and all related structures Neck: Neck: Yes normal visual inspection, Yes full ROM, Yes no lymphadenopathy, Yes no meningeal signs, Yes trachea midline, Yes supple, No anterior neck swelling and No tender Chest: Chest palpation & inspection: normal inspection of the chest and normal palpation of entire chest wall Resp: Effort & Inspection: normal respiratory effort and able to speak in complete sentences Auscultation: clear to auscultation bilaterally Cardio: Jugular venous distension: no JVD Heart sounds: S1 normal heart sound present and S2 normal heart sound present GI: Inspection: Yes normal to inspection Palpation (GI): Soft to palpation, not firm, nontender, no guarding and not rigid : General: Yes no CVA tenderness Back/Spine/Pelvis: Back: no CVA tenderness and No back tenderness Skin: General skin exam: no rashes or lesions noted, elasticity normal and turgor normal Neuro: General: patient oriented x3, gait normal, tone normal, moves all extremities, Normal light touch and pain sensation, no meningeal signs, no focal motor deficits, CN's II-XI intact bilaterally and normal sensation to monofilament Extrem: Other: Bilateral lower extremity negative for swelling, pitting edema, calf tenderness General: Yes normal to inspection, Yes full ROM and Yes capillary refill normal Psych: Appearance: grossly normal, well kempt and not disheveled Course Course Course Narrative: This is a Rapid Medical Exam performed in triage by Jocelyn White PA-C. Full HPI, ROS and PE to be performed by primary ED provider. 49 yo M w/pmhx PTSD, HLD, DM, Mood, CAD s/p stenting d/o presenting to the ED via EMS c/o CP radiaitng down LUE x 3hrs while watching TV. Admits CP is constant w/assoc SOB & dizziness, nausea and emesis x2. PE: uncomfortable, talking in complete sentences Plan: EKG, labs, CXR Medications Administered Discontinued Medications Generic Name Dose Route Start Last Admin Trade Name Freq PRN Reason Stop Dose Admin Aripiprazole 10 mg 09/02/24 20:45 09/02/24 20:42 Aripiprazole 10 Mg Tablet PO Not Given DAILY ALYCIA Atorvastatin Calcium 40 mg 09/02/24 22:15 09/03/24 20:27 Atorvastatin Calcium 40 Mg Tablet PO 40 mg BEDTIME ALYCIA Administration Bupropion HCl 300 mg 05/27/25 20:45 09/02/24 20:42 Bupropion Hcl Xl 300 Mg Tab.Er.24h PO Not Given DAILY ALYCIA Clopidogrel Bisulfate 75 mg 09/02/24 20:45 09/04/24 08:11 Clopidogrel Bisulfate 75 Mg Tablet PO 75 mg DAILY ALYCIA Administration Escitalopram Oxalate 10 mg 09/03/24 09:00 09/04/24 08:12 Escitalopram Oxalate 10 Mg Tablet PO 10 mg DAILY ALYCIA Administration Ferrous Sulfate 324 mg 09/02/24 20:45 09/02/24 20:43 Ferrous Sulfate 324 Mg Tablet.Dr PO Not Given DAILY ALYCIA Fluticasone Propionate 1 spray 09/03/24 09:00 09/04/24 08:29 Fluticasone Propionate Nasal 16 Gm [place] NOSTRIL-B 1 spray DAILY ALYCIA Administration Furosemide 20 mg 09/02/24 20:45 09/04/24 08:11 Furosemide 20 Mg Tablet PO 20 mg DAILY ALYCIA Administration Protocol Gabapentin 300 mg 09/02/24 21:00 09/02/24 22:47 Gabapentin 300 Mg Capsule PO Not Given BID ALYCIA Hydroxyzine HCl 25 mg 09/02/24 21:43 09/04/24 09:14 Hydroxyzine Hcl 25 Mg Tablet PO 25 mg TID PRN Administration anxiety Lamotrigine 25 mg 09/02/24 21:00 09/02/24 22:48 Lamotrigine 25 Mg Tablet PO Not Given BEDTIME ALYCIA Levothyroxine Sodium 25 mcg 09/03/24 06:00 09/04/24 06:06 Levothyroxine Sodium 25 Mcg Tablet PO 25 mcg DAILY@0600 ALYCIA Administration Lidocaine 1 patch 09/02/24 20:45 09/02/24 20:44 Lidocaine 4 % Patch Adh..Patch TRANSDERMA Not Given DAILY ALYCIA Protocol Lisinopril 5 mg 09/02/24 20:45 09/02/24 20:44 Lisinopril 5 Mg Tablet PO Not Given DAILY ALYCIA Protocol Lisinopril 10 mg 09/03/24 09:00 09/04/24 08:11 Lisinopril 10 Mg Tablet PO 10 mg DAILY ALYCIA Administration Protocol Melatonin 3 mg 09/02/24 21:00 09/03/24 20:27 Melatonin 3 Mg Tablet PO 3 mg BEDTIME ALYCIA Administration Metformin HCl 500 mg 09/02/24 20:45 09/02/24 20:44 Metformin Hcl 500 Mg Tablet PO Not Given BID@0800,1700 ALYCIA Metoprolol Tartrate 12.5 mg 09/02/24 20:45 09/02/24 20:44 Metoprolol Tartrate 12.5 Mg Halftab PO Not Given DAILY ALYCIA Protocol Metoprolol Tartrate 50 mg 09/02/24 22:15 09/04/24 08:12 Metoprolol Tartrate 50 Mg Tablet PO 50 mg BID ALYCIA Administration Protocol Morphine Sulfate 4 mg 09/02/24 14:41 09/02/24 14:48 Morphine Sulfate 4 Mg/Ml Cartridge IVPUSH 09/02/24 14:42 4 mg ONCE ONE Administration Protocol Morphine Sulfate 4 mg 09/02/24 15:42 09/02/24 15:56 Morphine Sulfate 4 Mg/Ml Cartridge IVPUSH 09/02/24 15:43 4 mg ONCE ONE Administration Protocol Multivitamins/Vitamin C 1 tab 09/02/24 20:45 09/04/24 08:11 Multivitamin Tablet PO 1 tab DAILY ALYCIA Administration Non-Formulary Medication 40 mg 09/02/24 20:45 09/02/24 20:45 Pantoprazole PO Not Given DAILY ALYCIA Pantoprazole Sodium 40 mg 09/03/24 06:30 09/04/24 07:05 Pantoprazole Sodium 20 Mg Tablet.Dr PO 40 mg DAILY@0630 ALYCIA Administration Perphenazine 8 mg 09/02/24 22:30 09/04/24 08:12 Perphenazine 8 Mg Tablet PO 8 mg BID ALYCIA Administration Primidone 50 mg 09/03/24 09:00 09/04/24 08:11 Primidone 50 Mg Tablet PO 50 mg DAILY ALYCIA Administration Quetiapine Fumarate 400 mg 09/02/24 22:15 09/03/24 20:27 Quetiapine Fumarate 400 Mg Tablet PO 400 mg BEDTIME ALYCIA Administration Quetiapine Fumarate 100 mg 09/03/24 21:00 09/03/24 21:17 Quetiapine Fumarate 100 Mg Tablet PO 100 mg TID PRN Administration Anxiety Rivaroxaban 20 mg 09/02/24 20:45 09/03/24 17:38 Rivaroxaban 20 Mg Tablet PO 20 mg DAILY@1700 ALYCIA Administration Sertraline HCl 100 mg 09/02/24 20:45 09/02/24 20:45 Sertraline Hcl 100 Mg Tablet PO Not Given DAILY ALYCIA Thiamine HCl 100 mg 09/02/24 20:45 09/02/24 20:45 Thiamine Hcl 100 Mg Tablet PO Not Given DAILY [facility] Vitamin D 10 mcg 09/02/24 20:45 09/04/24 08:12 Cholecalciferol (Vitamin D3) 10 Mcg Tablet PO 10 mcg DAILY ALYCIA Administration Medical Decision Making Medical Decision Making MDM Narrative: 49-year-old male history of stroke heart attack with stents placed at [facility] and early 2 thousands presents to the ED for chest pain that began around 11:30 while watching TV. Patient denies any URI symptoms recent long travel recent surgery or calf pain. EKG labs ordered. Patient already to Plavix at home. Patient given morphine. Patient did not take nitroglycerin or aspirin due to due to anaphylactic shock. 7;32pm: Patient well-appearing throughout ED visit. 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 Patient is watching television and laughing. Upon further review of patient's charts seen positive patient was seen by Psychiatry multiple times who states patient has a informed them he travels around the country to be admitted medically psychiatry over 150 times over the past couple of years while having delusion. Patient was recently seen by cardiology in April who states patient is not having any cardiac chest pain and does not need any further intervention. Patient also had echo in April face shows ejection fraction of 65 and no injury to the heart. Patient has a history of frequently visiting different hospitals requesting pain medications and for psych admission. Patient is not suicidal or homicidal. Not suspecting PE or CHF. Patient is on xerolto. EKG negative STEMI. Patient presently has no pain. Case was discussed with Dr. Le any also reviewed patient and charge to the agree with plans for patient to be discharged. Patient has no plan. 7:55pm: Upon discharge patient informed nurse earlier that he is suicidal. Patient will now be placed in pod for care team evaluation. Time: 21:53 Date: 09/02/24 Provider: Sarabjit Pearl MD Patient in physician observation for psychiatric evaluation. The patient was evaluated by the care team and I obtained the following information from the care team clinician. Patient was seen earlier in the emergency department for chest pain and upon discharged complained of suicidal ideation. The patient has a plan to jump off a bridge. The patient stated that he does not feel safe going home or going to a respite. The patient is not able to contract for safety therefore he was placed on a Section 12 and will be an in-patient bed search. Patient will remain in the emergency department [facility] until disposition can be determined or until patient's symptoms improve over time. Will continue to monitor. Time: 15:29 Date: 09/03/24 Provider: Lio Guillermo MD Physician observation ended at 1436. Patient to be admitted as inpatient to psychiatry. Differential Diagnosis Differential Diagnoses: The differential diagnosis associated with the presentation includes ([place], pneumonia) Lab Data [facility] Lab Attestation statement: I reviewed the patient's lab results. 09/02/24 14:51 09/04/24 08:17 Labs: Lab Results 09/02/24 09/02/24 09/02/24 Range/Units 14:51 18:31 21:36 WBC 5.8 (4.8-10.8) X10*3/uL RBC 4.85 (4.60-5.80) X10*6/uL Hgb 13.0 L D (14.0-18.0) g/dl Hct 39.2 L D (42.0-52.0) % MCV 80.8 (80.0-98.0) fL MCH 26.8 L (27.0-33.0) pg MCHC 33.2 (31.0-36.0) g/dl RDW 22.6 H (11.0-16.0) % Plt Count 259 (160-400) X10*3/uL MPV 9.9 (9.4-12.4) fL Immature Gran % (Auto) 0.7 H (0.0-0.4) % Neut % (Auto) 59.4 (45-73) % Lymph % (Auto) 29.0 (20-40) % [place] % (Auto) 8.9 (2-11) % Eos % (Auto) 1.7 (0-4) % Baso % (Auto) 0.3 (0-2) % Lymph # (Auto) 1.7 (1.2-4.9) X10*3/uL [place] # (Auto) 0.5 (0.1-1.2) X10*3/uL Eos # (Auto) 0.1 (0.0-0.4) X10*3/uL Baso # (Auto) 0.0 (0.0-0.2) X10*3/uL Abs Immat Gran (auto) 0.04 H (0.00-0.03) X10*3/uL Absolute Neuts (auto) 3.5 (2.0-8.3) x10*3/uL Absolute Nucleated RBC 0.000 (0.0-0.012) X10*3/uL Nucleated RBC % (auto) 0.0 (0.0-0.2) /100WBC PT 13.0 H (10.9-12.4) SEC INR 1.1 (0.9-1.1) APTT 33.7 (26.0-36.8) SEC Sodium 138 (135-145) mmol/L Potassium 3.7 (3.3-5.1) mmol/L Chloride 108 (96-108) mmol/L Carbon Dioxide 20 L (22-29) mmol/L Anion Gap 14 (12-20) BUN 16 (9-16) mg/dL Creatinine 0.65 (0.5-1.4) mg/dL Estim Creat Clear Calc 179.5 Estimated GFR > 60 POC Glucose (60-115) mg/dL Random Glucose 214 H (60-115) mg/dL Calcium 9.0 (8.4-10.2) mg/dL Magnesium 1.7 (1.6-2.6) mg/dL Total Bilirubin 0.2 (0.0-1.0) mg/dL Direct Bilirubin < 0.2 (0.0-0.5) mg/dL AST 21 (5-37) U/L ALT 14 (0-40) U/L Alkaline Phosphatase 73 (39-117) U/L Troponin I High Sens < 2.7 < 2.7 (<3.5-35.0) ng/L B-Natriuretic Peptide 14 (<100) pg/mL Total Protein 6.7 (6.5-8.0) g/dL Albumin 3.9 (3.5-5.0) g/dL Urine Color Yellow Urine Appearance Clear Urine pH 5.5 (5.0-9.0) Ur Specific [place] 1.025 (1.005-1.025) Urine Protein Negative (Neg-Trace) mg/dL Urine Glucose (UA) Negative (Negative) mg/dL Urine Ketones Trace (Negative) mg/dL Urine Blood Negative (Negative) Urine Nitrite Negative (Negative) Ur Leukocyte Esterase Negative (Negative) Urine Opiates Screen POSITIVE H (Not Detect) Ur Buprenorphine Scrn Not Detected (Not Detect) ng/mL Ur Oxycodone Screen Not Detected (Not Detect) ng/mL Urine Methadone Screen Not Detected (Not Detect) ng/mL Urine Fentanyl Screen Not Detected (Not Detect) Ur Barbiturates Screen Not Detected (Not Detect) Ur Phencyclidine Scrn Not Detected (Not Detect) Ur Amphetamines Screen Not Detected (Not Detect) U Benzodiazepines Scrn Not Detected (Not Detect) Urine Cocaine Screen Not Detected (Not Detect) U Marijuana (THC) Screen Not Detected (Not Detect) Ethyl Alcohol < 10 mg/dL 09/02/24 Range/Units 21:57 WBC (4.8-10.8) X10*3/uL RBC (4.60-5.80) X10*6/uL Hgb (14.0-18.0) g/dl Hct (42.0-52.0) % MCV (80.0-98.0) fL MCH (27.0-33.0) pg MCHC (31.0-36.0) g/dl RDW (11.0-16.0) % Plt Count (160-400) X10*3/uL MPV (9.4-12.4) fL Immature Gran % (Auto) (0.0-0.4) % Neut % (Auto) (45-73) % Lymph % (Auto) (20-40) % [place] % (Auto) (2-11) % Eos % (Auto) (0-4) % Baso % (Auto) (0-2) % Lymph # (Auto) (1.2-4.9) X10*3/uL [place] # (Auto) (0.1-1.2) X10*3/uL Eos # (Auto) (0.0-0.4) X10*3/uL Baso # (Auto) (0.0-0.2) X10*3/uL Abs Immat Gran (auto) (0.00-0.03) X10*3/uL Absolute Neuts (auto) (2.0-8.3) x10*3/uL Absolute Nucleated RBC (0.0-0.012) X10*3/uL Nucleated RBC % (auto) (0.0-0.2) /100WBC PT (10.9-12.4) SEC INR (0.9-1.1) APTT (26.0-36.8) SEC Sodium (135-145) mmol/L Potassium (3.3-5.1) mmol/L Chloride (96-108) mmol/L Carbon Dioxide (22-29) mmol/L Anion Gap (12-20) BUN (9-16) mg/dL Creatinine (0.5-1.4) mg/dL Estim Creat Clear Calc Estimated GFR POC Glucose 197 H (60-115) mg/dL Random Glucose (60-115) mg/dL Calcium (8.4-10.2) mg/dL Magnesium (1.6-2.6) mg/dL Total Bilirubin (0.0-1.0) mg/dL Direct Bilirubin (0.0-0.5) mg/dL AST (5-37) U/L ALT (0-40) U/L Alkaline Phosphatase (39-117) U/L Troponin I High Sens (<3.5-35.0) ng/L B-Natriuretic Peptide (<100) pg/mL Total Protein (6.5-8.0) g/dL Albumin (3.5-5.0) g/dL Urine Color Urine Appearance Urine pH (5.0-9.0) Ur Specific [place] (1.005-1.025) Urine Protein (Neg-Trace) mg/dL Urine Glucose (UA) (Negative) mg/dL Urine Ketones (Negative) mg/dL Urine Blood (Negative) Urine Nitrite (Negative) Ur Leukocyte Esterase (Negative) Urine Opiates Screen (Not Detect) Ur Buprenorphine Scrn (Not Detect) ng/mL Ur Oxycodone Screen (Not Detect) ng/mL Urine Methadone Screen (Not Detect) ng/mL Urine Fentanyl Screen (Not Detect) Ur Barbiturates Screen (Not Detect) Ur Phencyclidine Scrn (Not Detect) Ur Amphetamines Screen (Not Detect) U Benzodiazepines Scrn (Not Detect) Urine Cocaine Screen (Not Detect) U Marijuana (THC) Screen (Not Detect) Ethyl Alcohol mg/dL Independent Interpretation I performed an independent interpretation of an: EKG (Negative strep) and Plain X-Ray Discharge Plan Discharge Clinical Impression: Chest pain, Suicidal ideation Patient Disposition: Admitted As Inpatient Interventions: Admission Worksheet (ED) Last Done: 09/03/24 16:14 Discharge Date/Time: 09/03/24 16:15
--- NOTE | 2024-09-02 14:33 | PC.NURSE ---
Pt ambulates from triage- without difficulty. States CP and I have had six heart attacks Pt verbalizes constant CP with N/V. Placed on full monitor NSR on monitor with no ectopy. VSS. Pt states CP is bilateral. Has not taken anything and nothing relieves.
[2024-09-02] MEDS: Morphine Sulfate 4 MG/ML CARTRIDGE IVPUSH ×2 (14:48→15:56)
[2024-09-02 14:56] LABS: MANUAL DIFF FLAG NO
[2024-09-02 15:01] LABS: Basophils Percent Auto 0.3 % (0-2); Eosinophils Absolute Auto 0.1 X10*3/uL (0.0-0.4); Eosinophils Percent Auto 1.7 % (0-4); Hematocrit 39.2 % (42.0-52.0); Imm Gran Abs Auto 0.04 X10*3/uL (0.00-0.03); Imm Gran Pct Auto 0.7 % (0.0-0.4); Lymphocytes Absolute Auto 1.7 X10*3/uL (1.2-4.9); Mean Corpuscular HGB Conc 33.2 g/dl (31.0-36.0); Mean Corpuscular Hemoglobin 26.8 pg (27.0-33.0); Mean Corpuscular Volume 80.8 fL (80.0-98.0); Mean Platelet Volume 9.9 fL (9.4-12.4); Monocytes Absolute Auto 0.5 X10*3/uL (0.1-1.2); Monocytes Percent Auto 8.9 % (2-11); Neutrophils Absolute Auto 3.5 x10*3/uL (2.0-8.3); Neutrophils Percent Auto 59.4 % (45-73); Platelet Count 259 X10*3/uL (160-400); Red Blood Count 4.85 X10*6/uL (4.60-5.80); Red Cell Distribution Width 22.6 % (11.0-16.0); White Blood Count 5.8 X10*3/uL (4.8-10.8)
[2024-09-02 15:08] LABS: INTERNATIONAL NORM RATIO 1.1 (0.9-1.1)
[2024-09-02 15:10] LABS: Partial Thromboplastin Time 33.7 SEC (26.0-36.8)
[2024-09-02 15:21] LABS: B Type Natriuretic Peptide 14 pg/mL (<100)
[2024-09-02 15:23] LABS: Alanine Aminotransferase 14 U/L (0-40); Albumin Level 3.9 g/dL (3.5-5.0); Anion Gap 14 (12-20); Aspartate Amino Transferase 21 U/L (5-37); Bilirubin Direct < 0.2 mg/dL (0.0-0.5); Bilirubin Total 0.2 mg/dL (0.0-1.0); Blood Urea Nitrogen 16 mg/dL (9-16); Carbon Dioxide 20 mmol/L (22-29); Chloride 108 mmol/L (96-108); Creatinine Clr Calc Pharmacy 179.5; Estimated Glomerular Filt Rate > 60; Glucose Random 214 mg/dL (60-115); Magnesium 1.7 mg/dL (1.6-2.6); Potassium 3.7 mmol/L (3.3-5.1); Sodium 138 mmol/L (135-145); Total Protein 6.7 g/dL (6.5-8.0)
[2024-09-02 15:24] LABS: Troponin-I High Sensitivity < 2.7 ng/L (<3.5-35.0)
--- OUTSIDE RECORDS SUMMARY | 2024-09-02 15:26 | XMS_ITS | Clinical Summary ---
Author Organization [facility] Address [address] [place] [address] Care Team Providers Care Carton Stamper Name Role Phone None, Pcp [place] MD Primary Care Provider Allergies Active Allergy Reactions Criticality Noted Date [...] 01/09/2015 Chest pain of uncertain etiology 01/09/2015 Encounters Date Type Department Care Team Description 08/13/2024 6:02 PM EDT - 08/14/2024 12:22 PM EDT Emergency [facility] [address] [id number] Charlie Matias MD Mamdouhi, Kevan, MD Wang, Erik E, MD Chest pain, unspecified type (Primary Dx); Suicidal ideation; Unspecified bipolar and related disorder (HCC) [facility]charge [facility]position[facility] Last 3 Months Family History Medical History Relation Comments Coronary [...] drink = 0.6 oz pur e alcohol) AUDIT C Answer Date Recorded How often have you had a dri nk containing alcohol, in the past year? 0 08/13/2024 How many standard drinks con taining alcohol have you had on a typical day when you are drinking, in the past year? 0 0 08/13/2024 How often have you had six o r more drinks on one occasion, in the past year? 0 08/13/2024 Sex and Gender Information Value Date Recorded [...] Sign Reading Time Taken Comments Blood Pressure 118/75 08/14/2024 9:46 AM EDT Pulse 70 08/14/2024 9:46 AM EDT Temperature 37.2 ??C (98.9 ??F) 08/13/2024 8:10 PM ED T Respiratory Rate 16 08/14/2024 9:46 AM EDT Oxygen Saturation 97% 08/14/2024 9:46 AM EDT Inhaled Oxygen Concentration - - Weight 120 kg (265 lb) 08/13/2024 8:10 PM EDT Height 175.3 cm (5' 9 ) 08/13/2024 8:10 PM EDT Body Mass Index 39.13 08/13/2024 8:10 PM EDT Plan of Treatment Health Maintenance Due Date Last Done Comments Urine Microalbumin 1976 Depression Screening 1980 Diabetic Eye Exam 1994 DTaP,Tdap,and Td Vaccines (1 - Tdap) 08/01/1995 Pneumococcal Vaccine: Pediatrics (0 to 5 Years) and At-Risk Patients (6 to 64 Years) (2 of 2 - PCV) 02/18/2017 02/19/2016, 09/01/2013, 02/15/2011 CT Colonography 2021 Colonoscopy 2021 Colorectal Cancer Screening 2021 FIT 2021 FOBT 2021 Multitarget Stool DNA (Cologuard) 2021 Sigmoidoscopy 2021 COVID-19 Vaccine ( season) 2023 Hemoglobin A1c 10/02/2024 04/03/2024, 03/09, 03/09/2024, Additional history exists Influenza Vaccine (Season Ended) 2024 03/05/2021, 01/02/2020, 12/12/2018, Additional history exists Lipid Panel 03/09/2025 03/09/2024, 01/08, 09/13/2021, Additional history exists Blood Pressure 08/14/2025 08/14/2024 Hepatitis C Screening Completed 01/17/2017 PSA Discontinued 06/27/2017 Prostate Cancer Screening Discontinued Meningococcal B Vaccines Aged Out No longer eligible based on patient's age to complete this topic Meningococcal Vaccines Aged Out No lo nger eligible based on patient's age to complete this topic SDM Discontinued Procedures Procedure Name Priority Date/Time Associated Diagnosis Comments BNP (B-TYPE NATRIURETIC PEPTIDE) STAT 08/13/2024 8:28 PM EDT TROPONIN STAT 08/13/2024 8:28 PM EDT XR CHEST 2 VW STAT 08/13/2024 7:29 PM EDT ECG 12-LEAD STAT 08/13/2024 6:32 PM EDT RBC WBC PLT MORPHOLGY Routine 08/13/2024 6:29 PM EDT MANUAL DIFFERENTIAL Routine 08/13/2024 6 :29 PM EDT RAINBOW DRAW STAT 08/13/2024 6:29 PM EDT CBC AND DIFFERENTIAL STAT 08/13/2024 6:29 PM EDT LAVENDER TOP STAT 08/13/2024 6:29 PM EDT MINT GREEN TOP STAT 08/13/2024 6:29 PM EDT LIGHT BLUE TOP STAT 08/13/2024 6:29 PM EDT CBC AND DIFFERENTIAL STAT 08/13/2024 6:29 PM EDT TROPONIN (ALL) STAT 08/13/2024 6:29 PM EDT MAGNESIUM STAT 08/13/2024 6:29 PM EDT COMPREHENSIVE METABOLIC PANEL STAT 08/13/2024 6:29 PM EDT LIPID PANEL Routine 10/15/2020 6:17 AM EDT HEMOGLOBIN A1C Routine 02/20/2020 6:30 AM EST from Last 3 Months or Most Recently Relevant to Health Maintenance Results * BNP (B-Type Natriuretic Peptide) (08/13/2024 8:28 PM EDT) [facility] Beta-Natriuret ic Peptide (BNP) 13 0 - 50 pg/mL [place] [id number] 08/13/2024 8:57 PM EDT [facility] Blood PERIPHERAL BLOOD SPECIMEN / Unknown Venipuncture / Unknown 08/13/2024 8:28 PM EDT 08/13/2024 8:33 PM EDT Charlie Matias MD LAB BLOOD ORDERABLES Final R esult [address] [address] * Troponin I (08/13/2024 8:28 PM EDT) [facility] Troponin I <0.01 <=0.08 ng/mL [place] [id number] 08/13/2024 8:56 PM EDT [facility] Blood PERIPHERAL BLOOD SPECIMEN / Unknown Venipuncture / Unknown 08/13/2024 8:28 PM EDT 08/13/2024 8:33 PM EDT Charlie Matias MD LAB BLOOD ORDERABLES Final R esult [address] [address] * XR Chest 2 Vw (if able to travel) (08/13/2024 7:29 PM EDT) Anatomical Region Laterality Modality Chest Digital Radiogra phy 08/13/2024 7:55 PM EDT Impressions 08/13/2024 7:51 PM EDT No acute cardiopulmonary abnormality. Narrative 08/13/2024 7:51 PM EDT EXAM DESCRIPTION: XR CHEST 2 VW TECHNIQUE: XR CHEST 2 VW COMPARISON: XR CHEST 2 VW, ACC: [id number], dated 2019-01-14 15:57:16 INDICATION: chest pain FINDINGS: LINES/TUBES/DEVICES: None. LUNGS/PLEURA: No focal consolidation. No pleural effusion. No pneumothorax. HEART AND MEDIASTINUM: Normal cardiomediastinal silhouette. OSSEOUS/OTHER: No acute osseous abnormality. Procedure Note Germán Espinoza DO - 08/13/2024 EXAM DESCRIPTION: XR CHEST 2 VW TECHNIQUE: XR CHEST 2 VW COMPARISON: XR CHEST 2 VW, ACC: [id number], dated 2019-01-14 15:57:16 INDICATION: chest pain FINDINGS: LINES/TUBES/DEVICES: None. LUNGS/PLEURA: No focal consolidation. No pleural effusion. Nopneumothorax. HEART AND MEDIASTINUM: Normal cardiomediastinal silhouette. OSSEOUS/OTHER: No acute osseous abnormality. IMPRESSION: No acute cardiopulmonary abnormality. Charlie Matias MD IMG DIAGNOSTIC IMAGING ORDER GIOVANI Final Result * ECG 12 lead, STAT, show (08/13/2024 6:32 PM EDT) Ventricular Heart Rate 62 BPM EKG [facility] M[facility] Atrial Heart Rate 62 BPM EKG [facility] AR Interval 168 ms EKG [facility] QRSD Interval 104 ms EKG [facility] QT Interval 394 ms EKG [facility] QTC Interval 399 ms EKG [facility] P [place] 14 degrees EKG [facility] MUSE R [place] 25 degrees EKG [facility] T Wave [place] 24 degrees EKG [facility] 08/13/2024 6:22 PM EDT 08/15/2024 10:07 AM EDT Narrative EKG B[facility] MUSE - 08/15/2024 10:07 AM EDT Normal sinus rhythm Normal ECG When compared with ECG of 24-Feb-2024 09:43, (Unconfirmed) No significant change was found Confirmed by Lucero Camarillo ([id number]) on 08/15/2024 10:07:22 AM Procedure Note Lucero Delgado MD - 08/15/2024 Normal sinus rhythm Normal ECG When compared with ECG of 24-Feb-2024 09:43, (Unconfirmed) No significant change was found Confirmed by Lucero Camarillo ([id number]) on 08/15/2024 10:07:22 AM Charlie Matias MD ECG ORDERABLES Final Result Performing Organization Address City/[facility] Co de Phone Number EKG BUR MUSE [address] [place] [phone] * Troponin (08/13/2024 6:29 PM EDT) Pathologist [facility] Troponin I <0.01 <=0.08 ng/mL [place] [id number] 08/13/2024 6:54 PM EDT [facility] Blood PERIPHERAL BLOOD SPECIMEN / Unknown Venipuncture / Unknown 08/13/2024 6:29 PM EDT 08/13/2024 6:30 PM EDT Charlie Matias MD LAB BLOOD ORDERABLES Final R esult Performing Organization Address [facility] de Phone Number [address] [address] * (ABNORMAL) RBC WBC PLT Morphology (08/13/2024 6:29 PM EDT) Pathologist [facility] RBC Abnormalities Polychrom nani(A) (none) 08/13/2024 8:57 PM EDT [facility] Blood PERIPHERAL BLOOD SPECIMEN / Unknown Venipuncture / Unknown 08/13/2024 6:29 PM EDT 08/13/2024 6:40 PM EDT Charlie Matias MD LAB BLOOD ORDERABLES Final R esult Performing Organization Address City/[facility] Co de Phone Number [address] [phone] * (ABNORMAL) CBC and Differential (08/13/2024 6:29 PM EDT) Pathologist [facility] WBC 5.75 4.00 - 11.00 K/uL 08/13/2024 8:57 PM EDT [facility] RBC 5.03 4.50 - 5.90 M/uL 08/13/2024 8:57 PM EDT [facility] Hemoglobin 12.7(L) 13.8 - 17.4 g/dL 08/13/2024 8:57 PM EDT [facility] Hematocrit 39.7(L) 41.0 - 51.0 % 08/13/2024 8:57 PM EDT [facility] MCV 79(L) 80 - 96 fL 08/13/2024 8:57 PM EDT [facility] RDW 23.4(H) 11.6 - 14.6 % 08/13/2024 8:57 PM EDT [facility] Platelet Count 293 150 - 450 K/uL 08/13/2024 8:57 PM EDT [facility] Differential Performed Slide Reviewed, auto reported 08/13/2024 8:57 PM EDT [facility] Blood PERIPHERAL BLOOD SPECIMEN / Unknown Venipuncture / Unknown 08/13/2024 6:29 PM EDT 08/13/2024 6:40 PM EDT Charlie Matias MD LAB BLOOD [place]AB[place] [address] * Lavender Top (08/13/2024 6:29 PM EDT) Lav Top Tube Received 08/13/2024 8:02 PM EDT [facility] Blood PERIPHERAL BLOOD SPECIMEN / Unknown Venipuncture / Unknown 08/13/2024 6:29 PM EDT 08/13/2024 6:40 PM EDT Charlie Matias MD LAB BLOOD ORDERABLES Final R esult [address] [address], * Mint Green Top (08/13/2024 6:29 PM EDT) PST Tube Received 08/13/2024 8:02 PM EDT [facility] Blood PERIPHERAL BLOOD SPECIMEN / Unknown Venipuncture / Unknown 08/13/2024 6:29 PM EDT 08/13/2024 6:30 PM EDT Charlie Matias MD LAB BLOOD ORDERABLES Final R esult Performing Organization Address City/[facility]/ZIP Co de Phone Number [address] [address], [place] * Blue Top (08/13/2024 6:29 PM EDT) [facility] Blue Top Tube Received 08/13/2024 6:42 PM EDT [facility] Blood PERIPHERAL BLOOD SPECIMEN / Unknown Venipuncture / Unknown 08/13/2024 6:29 PM EDT 08/13/2024 6:30 PM EDT Charlie Matias MD LAB BLOOD ORDERABLES Final R esult Performing Organization Address City/[facility] Co de Phone Number [address] [address] * Differential (08/13/2024 6:29 PM EDT) [facility] WBC 5.75 K/uL 08/13/2024 8:57 PM EDT [facility] Neutrophil 48 % 08/13/2024 8:57 PM EDT [facility] Lymphocyte 41 % 08/13/2024 8:57 PM EDT [facility] Monocyte 9 % 08/13/2024 8:57 PM EDT [facility] Eosinophil 1 % 08/13/2024 8:57 PM EDT [facility] Basophil 1 % 08/13/2024 8:57 PM EDT [facility] Absolute Neutrophil Count 2.76 1.50 - 7.70 K/uL 08/13/2024 8:57 PM EDT [facility] Absolute Lymphocyte Count 2.36 1.20 - 3.50 K/uL 08/13/2024 8:57 PM EDT [facility] Absolute Monocyte Count 0.52 0.00 - 1.00 K/uL 08/13/2024 8:57 PM EDT [facility] Absolute Eosinophil Count 0.06 0.00 - 0.40 K/uL 08/13/2024 8:57 PM EDT [facility] Absolute Basophil Count 0.06 0.00 - 0.20 K/uL 08/13/2024 8:57 PM EDT [facility] Blood PERIPHERAL BLOOD SPECIMEN / Unknown Venipuncture / Unknown 08/13/2024 6:29 PM EDT 08/13/2024 6:40 PM EDT Charlie Matias MD LAB BLOOD ORDERABLES Final R esult Performing Organization Address City/[facility]/ZIP Co de Phone Number [address] [address] * Magnesium (08/13/2024 6:29 PM EDT) Pathologist [facility] Magnesium, Blood 2.0 1.6 - 2.6 mg/dL [address] 08/13/2024 6:58 PM EDT [facility] Blood PERIPHERAL BLOOD SPECIMEN / Unknown Venipuncture / Unknown 08/13/2024 6:29 PM EDT 08/13/2024 6:30 PM EDT Charlie Matias MD LAB BLOOD ORDERABLES Final R esult [address] [address] * (ABNORMAL) Comprehensive Metabolic Panel (08/13/2024 6:29 PM EDT) Sodium 137 135 - 146 mmol/L [address] 08/13/2024 6:48 PM EDT [facility] Potassium 4.2 3.4 - 5.2 mmol/L [address] 08/13/2024 6:48 PM EDT [facility] Comment:Plasma sample Chloride 108 98 - 110 mmol/L [address] 08/13/2024 6:48 PM EDT [facility] Total CO2/Bicarbonate 22(L) 24 - 32 mmol/L [address] 08/13/2024 6:48 PM EDT [facility] Anion Gap 7 2 - 15 mmol/L [address] 08/13/2024 6:48 PM [facility] BUN 17 7 - 24 mg/dL [address] 08/13/2024 6:48 PM [facility] Creatinine, Blood 0.75 0.50 - 1.30 mg/dL [address] 08/13/2024 6:48 PM [facility] Glucose, Blood 97 70 - 118 mg/dL [address] 08/13/2024 6:48 PM [facility] Calcium 9.2 8.5 - 10.5 mg/dL [address] 08/13/2024 6:48 PM [facility] Total Protein 7.1 6.2 - 8.2 g/dL [address] 08/13/2024 6:48 PM [facility] Albumin, Blood 3.7 3.4 - 5.2 g/dL [address] 08/13/2024 6:48 PM [facility] Globulin Result 3.4 2.0 - 4.0 g/dL [address] 08/13/2024 6:48 PM [facility] AST (SGOT) 13 11 - 40 U/L [address] 08/13/2024 6:48 PM [facility] ALT (SGPT) 6(L) 7 - 40 U/L [address] 08/13/2024 6:48 PM [facility] Alkaline Phosphatase 82 30 - 115 U/L [address] 08/13/2024 6:48 PM [facility] Total Bilirubin <0.3 0.0 - 1.2 mg/dL [address] 08/13/2024 6:48 PM [facility] Estimated GFR(CKD-EPI) 108 >=60 mL/min/BS A [address] 08/13/2024 6:48 PM [facility] Comment:This Cr-based equati on underestimates GFR in patients with increased muscle mass. Order CYSTATIN C WITH GFR ESTIMATE, [id number], if additional evaluation of renal function is needed. Blood PERIPHERAL BLOOD SPECIMEN / Unknown Venipuncture / Unknown 08/13/2024 6:29 PM EDT 08/13/2024 6:30 PM EDT us Charlie Matias MD LAB BLOOD ORDERABLES Final R esult [address] [address] * (ABNORMAL) Lipid Panel (10/15/2020 6:17 AM EDT) Cholesterol 120(L) 125 - 200 mg/dL 10/15/2020 8:10 AM EDT [facility] Triglycerides 170(H) 55 - 150 mg/dL 10/15/2020 8:10 AM EDT [facility] Comment:Use non-HDL choleste rol or Apolipoprotein B to monitor cardiovascular risk and cholesterol-lowering therapy. HDL Cholesterol 29(L) 40 - 65 mg/dL 10/15/2020 8:10 AM EDT [facility] LDL Cholesterol 57 <130 mg/dL 10/15/2020 8:10 AM EDT [facility] Non-HDL Cholesterol 91 <190 mg/dL 10/15/2020 8:10 AM EDT [facility] Comment: Normal primary prevention ?<190 mg/dL High risk primary prevention ?? <160 mg/dL Secondary prevention ? <130 mg/dL High risk secondary prevention <100 mg/dL VLDL Cholesterol 34 8 - 71 mg/dL 10/15/2020 8:10 AM EDT [facility] Ratio Chol/HDL 4.1 2.0 - 5.0 10/15/2020 8:10 AM EDT [facility] Patient Fasting 8:10 AM EDT [facility] Blood Venipuncture / Unknown 10/15/2020 6:17 AM EDT 10/15/2020 7:04 AM EDT us Khurram Nunez MD LAB BLOOD ORDERABLES Final Res ult [email or web address] [address] [place] [address] * Hemoglobin A1C (02/20/2020 6:30 AM EST) Hemoglobin A1C 5.8 4.0 - 6.0 % CONVERSION FROM [employer] Estimated Average Glucose 120 mg/dL CONVERSION F [facility] 02/20/2020 6:30 AM EST 02/20/2020 7:06 AM EST Larry [place] MD LAB BLOOD ORDERABLES Erica arroyo Result CONVERSION FROM [employer] from Last 3 Months or Most Recently Relevant to Health Maintenance [place] [address] [address] [place] [address] SENIOR Advance Directives * Full Code (Latest [...] 11:41 PM 03/16/2016 6:25 PM Care Teams Carton Stamper Relationship Specialty Start Date End Date South Kh[place] MD [address] [place] [id number] PCP - General 01/14/19 None, PcpMD 07/28/14
[2024-09-02 15:54] LABS: Alkaline Phosphatase 73 U/L (39-117)
[2024-09-02 19:03] LABS: Troponin-I High Sensitivity < 2.7 ng/L (<3.5-35.0)
--- NOTE | 2024-09-02 19:59 | PC.NURSE ---
pt reported thoughts of SI upon d/c, states he was not on arrival and became suicidal while here. 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 report given to Carol MARTINO in POD. iv removed.
--- NOTE | 2024-09-02 20:05 | PC.NURSE ---
assumed care for pt at approximately 1950. pt received a sandwich and diet gingerale. no apparent distress.
[2024-09-02 20:48] LABS: Ethanol < 10 mg/dL
[2024-09-02 21:55] LABS: Appearance Urine Clear; Color Urine Yellow; Glucose Urine UA Negative (Negative); Leukocyte Esterase Urine Negative (Negative); Nitrite Urine Negative (Negative); PH 5.5 (5.0-9.0); Specific Gravity - Urine 1.025 (1.005-1.025); Urine Blood Negative (Negative); Urine Ketones Trace mg/dL (Negative); Urine Protein Negative (Neg-Trace)
[2024-09-02 22:01] LABS: Amphetamine Screen Urine Not Detected (Not Detect); Barbiturates, Urine Not Detected (Not Detect); Benzodiazepines Screen Urine Not Detected (Not Detect); Buprenorphine Scr Not Detected (Not Detect); Cannabinoid Screen Urine Not Detected (Not Detect); Cocaine Screen Urine Not Detected (Not Detect); Fentanyl, urine Not Detected (Not Detect); Methadone Screen, Urine Not Detected (Not Detect); Opiate Screen Urine POSITIVE (Not Detect); Oxycodone Screen Urine Not Detected (Not Detect); Phencyclidine Screen Urine Not Detected (Not Detect)
[2024-09-02 22:01] LABS: Glucose, Whole Blood 197 mg/dL (60-115)
[2024-09-02] MEDS: QUEtiapine Fumarate 400 MG TABLET PO (22:45)
[2024-09-02] MEDS: Metoprolol Tartrate 50 MG TABLET PO (22:45)
[2024-09-02] MEDS: Atorvastatin Calcium 40 MG TABLET PO (22:45)
[2024-09-02] MEDS: Melatonin 3 MG TABLET PO (22:45)
[2024-09-02] MEDS: Rivaroxaban 20 MG TABLET PO (22:45)
--- NOTE | 2024-09-02 22:53 | MHC.CARE ---
Initial CCA form completed and successfully faxed.
[2024-09-02] MEDS: Perphenazine 8 MG TABLET PO (23:03)
[2024-09-03] MEDS: Cholecalciferol (Vitamin D3) 10 MCG TABLET PO (08:44)
[2024-09-03] MEDS: Primidone 50 MG TABLET PO (08:44)
[2024-09-03] MEDS: Levothyroxine Sodium 25 MCG TABLET PO (08:45)
[2024-09-03] MEDS: Clopidogrel Bisulfate 75 MG TABLET PO (08:45)
[2024-09-03] MEDS: lisinopriL 10 MG TABLET PO (08:45)
[2024-09-03] MEDS: Perphenazine 8 MG TABLET PO ×2 (08:45→20:27)
[2024-09-03] MEDS: Metoprolol Tartrate 50 MG TABLET PO ×2 (08:45→20:28)
[2024-09-03] MEDS: Pantoprazole Sodium 20 MG TABLET.DR 40 MG PO (08:45)
[2024-09-03] MEDS: Furosemide 20 MG TABLET PO (08:45)
[2024-09-03] MEDS: Multivitamin TABLET 1 TAB PO (08:45)
[2024-09-03] MEDS: Escitalopram Oxalate 10 MG TABLET PO (08:45)
[2024-09-03] MEDS: Fluticasone Propionate Nasal 16 GM SPRAY 1 SPRAY NOSTRIL-B (08:49)
--- NOTE | 2024-09-03 14:58 | ECG_ITS ---
Test Reason : CHECT PAIIN Blood Pressure : */* mmHG Vent. Rate : 85 BPM Atrial Rate : 85 BPM P-R Int : 184 ms QRS Dur : 104 ms QT Int : 368 ms P-R-T Axes : 45 27 48 degrees QTcB Int : 437 ms Normal sinus rhythm Normal ECG When compared with ECG of 02-Sep-2024 13:55, No significant change was found Referred By: Lio Guillermo Electronically Signed By: NAMAN CASTELLANOS MD
--- NOTE | 2024-09-03 15:39 | PC.NURSE ---
pt states that his PCP DC'ed his metformin, but he thinks he should be taking it
[2024-09-03 15:44] VITALS: BP 141/71; PULSE 79; RESP 18; TEMP 36.6; O2SAT 96
[2024-09-03 15:44] LABS: Glucose, Whole Blood 199 mg/dL (60-115)
[2024-09-03 16:15] VITALS: BP 123/70; PULSE 103; RESP 18; TEMP 36.8; O2SAT 94
[2024-09-03 16:43] VITALS: BMI 37.3
[2024-09-03] MEDS: Rivaroxaban 20 MG TABLET PO (17:38)
--- NOTE | 2024-09-03 18:17 | PC.ADMIT ---
Nursing admission note: 49 year old male DX: Depression unspecified, Autistic disorder. Referred for treatment by CARE team. Presented to [facility] [place] [place] ED via EMS due to concern of chest pain. Medical treatment provided, Charlie was cleared for discharge, however patient reported SI upon discharge, was transported from main ED to POD for crisis assessment. Patient engaged easily. A+O x4. Calm and cooperative during assessment process. Presents with good eye contact, dressed in hospital attire. Reports depressed mood, endorses anxiety. Reports suidical thoughts . Reports feeling safe in current environment, agrees to seek staff support if feeling he will act on thoughts. Denies HI. Blunted affect however brightens on approach. Thoughts clear and organized. Reports +CAH to kill myself, say I'm worthless . Denies VH at this time. Reports his daughter motivates him to stay alive. Reports difficulty falling and maintaining sleep without medications. Denies appetite disturbance. Denies drug or alcohol use. TOX + opiate although per POD RN patient received Morphine in ED. Medical history includes HX of NE (x6 most recent 2023). CAD, History of PE 07/2019. History of sleep apnea, does not use CPAP. Reports DX of COPD, states he utilizes O2 continuous at 2L. Dr. Belle notified, ordered medical consult for evaluation, Ramesh Giron notified of consult. No reported or observed difficulty breathing currently, saturation 94%. Patient oriented to unit, placed on unit safety checks. See nursing assessment, crisis evaluation for further details.
[2024-09-03 19:31] VITALS: BP 137/72; PULSE 73; RESP 16; TEMP 36.9; O2SAT 96
[2024-09-03] MEDS: QUEtiapine Fumarate 400 MG TABLET PO (20:27)
[2024-09-03] MEDS: Atorvastatin Calcium 40 MG TABLET PO (20:27)
[2024-09-03] MEDS: Melatonin 3 MG TABLET PO (20:27)
[2024-09-03] MEDS: QUEtiapine Fumarate 100 MG TABLET PO (21:17)
--- NOTE | 2024-09-04 | ECG_ITS ---
Test Reason : CP Blood Pressure : */* mmHG Vent. Rate : 70 BPM Atrial Rate : 70 BPM P-R Int : 170 ms QRS Dur : 104 ms QT Int : 380 ms P-R-T Axes : 8 42 57 degrees QTcB Int : 410 ms Normal sinus rhythm Normal ECG When compared to the previous EKG of No significant changes seen Referred By: Doris Giron Electronically Signed By: NAMAN CASTELLANOS MD
[2024-09-04] MEDS: Levothyroxine Sodium 25 MCG TABLET PO (06:06)
[2024-09-04 07:00] VITALS: BMI 37.5
[2024-09-04] MEDS: Pantoprazole Sodium 20 MG TABLET.DR 40 MG PO (07:05)
[2024-09-04 07:43] VITALS: BP 130/66; PULSE 66; RESP 14; TEMP 36.6; O2SAT 95
[2024-09-04] MEDS: Multivitamin TABLET 1 TAB PO (08:11)
[2024-09-04] MEDS: Furosemide 20 MG TABLET PO (08:11)
[2024-09-04] MEDS: Clopidogrel Bisulfate 75 MG TABLET PO (08:11)
[2024-09-04] MEDS: Primidone 50 MG TABLET PO (08:11)
[2024-09-04] MEDS: lisinopriL 10 MG TABLET PO (08:11)
[2024-09-04] MEDS: Perphenazine 8 MG TABLET PO (08:12)
[2024-09-04] MEDS: Metoprolol Tartrate 50 MG TABLET PO (08:12)
[2024-09-04] MEDS: Cholecalciferol (Vitamin D3) 10 MCG TABLET PO (08:12)
[2024-09-04] MEDS: Escitalopram Oxalate 10 MG TABLET PO (08:12)
[2024-09-04] MEDS: Fluticasone Propionate Nasal 16 GM SPRAY 1 SPRAY NOSTRIL-B (08:29)
[2024-09-04] MEDS: hydrOXYzine HCL 25 MG TABLET PO (09:14)
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
[2024-09-04 09:21] LABS: Alanine Aminotransferase 96 U/L (0-40); Albumin Level 4.3 g/dL (3.5-5.0); Alkaline Phosphatase 124 U/L (39-117); Anion Gap 13 (12-20); Aspartate Amino Transferase 34 U/L (5-37); Bilirubin Total 0.3 mg/dL (0.0-1.0); Blood Urea Nitrogen 12 mg/dL (9-16); Calcium 9.4 mg/dL (8.4-10.2); Carbon Dioxide 23 mmol/L (22-29); Chloride 106 mmol/L (96-108); Cholesterol 111 mg/dL (<200); Estimated Average Glucose 126 mg/dL; Estimated Glomerular Filt Rate > 60; Glucose Random 131 mg/dL (60-115); HDL Cholesterol 32 mg/dL (>40); Hemoglobin A1C 152.2486 umol/L; LDL Cholesterol Calculated 54 mg/dL (<100); Magnesium 1.9 mg/dL (1.6-2.6); Potassium 4.1 mmol/L (3.3-5.1); Sodium 138 mmol/L (135-145); Total Hemoglobin (HGBA1C) 3623.0787 umol/L; Total Protein 7.3 g/dL (6.5-8.0); Triglycerides 126 mg/dL (<150)
[2024-09-04 11:19] LABS: Troponin-I High Sensitivity < 2.7 ng/L (<3.5-35.0)
--- NOTE | 2024-09-04 11:25 | P.CONHOSP_ITS ---
History of Present Illness Data of Consult Service Date: 09/04/24 <Doris Giron DNP - Last Filed: 09/11/24 15:24> Primary Care Provider: None Physician <Doris Giron DNP - Last Filed: 09/11/24 15:24> HPI Reason for consult: Atypical CP <Doris Giron DNP - Last Filed: 09/11/24 15:24> Patient is a 49-year-old male with history of bipolar disorder, malingering, PTSD and autism spectrum disorder who presented to ER via EMS due to concerns of chest pain; when he was medically cleared patient reported suicidal ideation and was admitted to psychiatric care for treatment of suicidal ideation. Patient has well documented history of multiple ED visits for chest pain, as well as over 150 psychiatric admission since 2009, as well as numerous visits to ED for Chest pain. Patient reports that he has had 6 heart attacks in the past which are self-reported and unable to be verified. Reports that they happened in his 20s. Most recently he was admitted at [facility] from May 22 to for chest pain with a negative workup, he had a negative nuclear stress test in May as well as a negative echo in April. He was admitted to [facility] from 05/27- 05/29 again for chest pain and subsequently transferred here for psychiatric care after he expressed suicidal ideation. He was discharged here on June 02 in less than 2 hours later he presented to [facility] with chest pain. On 06/02 he presented to [facility] again with chest pain. He was discharged from [facility] then presented shortly after to [facility] ED for chest pain again. He was cleared for ACS, and presented again to [facility] on 06/04 again for chest pain, again cleared. He has had several documented EKGs that did not show evidence of any abnormalities. Patient reports reports that His prior MIs did not present with elevated troponins or EKG changes, and if it was not for a Doctor Finally listening to him it would have never been diagnosed. Nursing reported chest pain today. Upon my arrival patient was observed ambulating and eating his breakfast, taking food off of the tray and conversation with staff and other patients. He did not appear to be in any distress. An EKG was ordered which demonstrated normal sinus rhythm which is unchanged from priors. Patient had a normal EKG on 09/02 and 09/03. A troponin level was drawn which was negative. Patient reports that he has chest pain which radiates down his left arm and into his left jaw which is consistent with prior presentations. Reports that his pain is greater than a 10. He is not diaphoretic, his BP and Pulse are WNL. He reports that he has anaphylactic reactions to ibuprofen, nitroglycerin, aspirin and Tylenol. He reports the only thing that helps his chest pain is morphine. He was offered a dose of Toradol, he does not want to have a shot so he declined this. Patient will need to follow up with cardiology as an outpatinet. No further work up indicated based on history. <Doris Giron, DNP - Last Filed: 09/11/24 15:24> Patient is a 49-year-old male with a PMH significant for chronic chest pain, hx of self-reported 6 prior MIs s/p stenting in 1999 not verified by medical records, hypothyroidism, HLD, HTN, self-reported prior PE on Xarelto, malingering, PTSD, autism spectrum disorder, and bipolar disorder who presented to ER via EMS due to concerns of chest pain; when he was medically cleared patient reported suicidal ideation and was admitted to psychiatric care. Hospitalist consult for chest pain. Pt self reports that he has had at least 6 prior heart attacks including 2 cardiac caths, 1 with stenting and the other without, sometime around 1999 at [facility]. Have not been able to verify this through medical record requests. Pt has a long history of presenting to EDs complaining of chest pain and often receiving multiple doses of morphine due to self-reported allergies to typical ACS medications, then endorsing SI and being admitted for inpatient psychiatric stabilization after negative workup. Pt has long been homeless and apparently travels around the country from hospital to hospital using this strategy of endorsing chest pain and then SI to receive either hospital or inpatient psych admission; pt has an estimated 150 inpatient psychiatric hospitalizations during the past few years. For example, in May was admitted at [facility] from 05/22- for chest pain with a negative workup. The next day was then admitted to [facility] for chest pain and subsequently medically cleared to be transferred to [facility] for psychiatric care after he expressed SI. Was discharged from [facility] on 06/02 and less than 2 hours later presented to [facility] again complaining of chest pain. Discharged the next day from [facility] ED on 06/03 and then re-presented to [facility] ED that same day complaining of chest pain again. Had another negative ACS workup and was discharged from the ED when he then re-presented to [facility] ED a few hours later again for evaluation of chest pain. Was discharged on 06/05. All cardiac workup in this short 2-week time period was negative, including nuclear stress test, echocardiogram, a dozen+ negative troponins and non-ischemic EKGS, and multiple cardiology consultations. Patient reports that his prior MIs did not present with either elevated troponins or EKG changes, and the timing would place his heart attacks around 24 years of age, all of which is highly unlikely. For current consult, nursing report has been experiencing chest pain today. Upon my arrival patient was observed ambulating and eating his breakfast, taking food off of the tray and conversing with staff and other patients. He did not appear to be in any distress. An EKG was ordered which demonstrated normal sinus rhythm which is unchanged from priors. Patient has had multiple normal EKGs while on the unit, including on 09/02 and 09/03. A troponin level was drawn which was negative. Patient reports that he has chest pain which radiates down his left arm and into his left jaw which is consistent with prior presentations. Reports that his pain is greater than a 10. He is not diaphoretic, his BP and pulse are WNL. He reports that he has anaphylactic reactions to ibuprofen, nitroglycerin, aspirin and Tylenol. He reports the only thing that helps his chest pain is morphine. He was offered a dose of Toradol which he decline since he does not want to have a shot. Given negative workup in hx, no indication for additional treatment or workup at this time. Patient will need to follow up with cardiology as an outpatinet. <JUNIOR Villa - Last Filed: 09/11/24 15:19> Review of Systems 2 Review of Systems: Denies any shortness of breath, dizziness, lightheadedness, abdominal pain or discomfort, nausea vomiting or diarrhea. Reports chest pain. <Doris Giron DNP - Last Filed: 09/11/24 15:24> [facility] Medical History: Medical History (Updated 09/04/24 @ 16:49 by Doris Giron DNP) Atypical chest pain Bipolar disorder Mood disorder PTSD (post-traumatic stress disorder) Depression History of pulmonary embolism BPH (benign prostatic hyperplasia) Diabetes Obesity Hypothyroid HLD (hyperlipidemia) CAD (coronary artery disease) <Doris Giron DNP - Last Filed: 09/11/24 15:24> Surgical History: Surgical History History of coronary artery stent placement <Doris Giron DNP - Last Filed: 09/11/24 15:24> Social History: Social History Household Members: None Housing: Apartment Do you presently have visiting nurse or other home services: No Alcohol intake: never Patient Tobacco Use Status: Never used Tobacco e-Cigarette/Vaping Use: Never Used Second Hand Smoke Exposure: No service: No Current occupational status: unemployed Sexual orientation: Straight/Heterosexual <Doris Giron DNP - Last Filed: 09/11/24 15:24> Meds Allergies/Adverse reactions: Allergies Allergy/AdvReac Type Severity Reaction Status Date / Time acetaminophen [From TYLENOL] Allergy Severe ANAPHYLAXIS Verified 09/02/24 14:03 aspirin [ASA] Allergy Severe ANAPHYLAXIS Verified 09/02/24 14:03 nitroglycerin [NITROGLYCERIN] Allergy Severe ANAPHYLAXIS Verified 09/02/24 14:03 amoxicillin [AMOXICILLIN] Allergy Mild RASH Verified 09/02/24 14:03 fish derived [fish] Allergy Anaphylaxis Verified 09/02/24 14:03 ibuprofen Allergy Anaphylaxis Verified 09/02/24 14:03 Poultry Allergy Anaphylaxis Verified 09/02/24 14:03 <Doris Giron DNP - Last Filed: 09/11/24 15:24> Active Medications: Current Medications Al Hydroxide/Mg Hydroxide (Magnesium Hydrox/Alum Hydrox 30 Ml Oral.Susp) 30 ml PO Q6H PRN PRN Reason: Heartburn/Nausea Atorvastatin Calcium (Atorvastatin Calcium 40 Mg Tablet) 40 mg PO BEDTIME [facility] Last Admin: 09/03/24 20:27 Dose: 40 mg Clopidogrel Bisulfate (Clopidogrel Bisulfate 75 Mg Tablet) 75 mg PO DAILY [facility] Last Admin: 09/04/24 08:11 Dose: 75 mg Escitalopram Oxalate (Escitalopram Oxalate 10 Mg Tablet) 10 mg PO DAILY [facility] Last Admin: 09/04/24 08:12 Dose: 10 mg Fluticasone Propionate (Fluticasone Propionate Nasal 16 Gm [place]) 1 spray NOSTRIL-B DAILY [facility] Last Admin: 09/04/24 08:29 Dose: 1 spray Furosemide (Furosemide 20 Mg Tablet) 20 mg PO DAILY [facility]; Protocol Last Admin: 09/04/24 08:11 Dose: 20 mg Hydroxyzine HCl (Hydroxyzine Hcl 25 Mg Tablet) 25 mg PO TID PRN PRN Reason: anxiety Last Admin: 09/04/24 09:14 Dose: 25 mg Levothyroxine Sodium (Levothyroxine Sodium 25 Mcg Tablet) 25 mcg PO DAILY@0600 [facility] Last Admin: 09/04/24 06:06 Dose: 25 mcg Lisinopril (Lisinopril 10 Mg Tablet) 10 mg PO DAILY [facility]; Protocol Last Admin: 09/04/24 08:11 Dose: 10 mg Magnesium Hydroxide (Milk Of Magnesia 30 Ml Oral.Susp) 30 ml PO DAILY PRN PRN Reason: Constipation Melatonin (Melatonin 3 Mg Tablet) 3 mg PO BEDTIME [facility] Last Admin: 09/03/24 20:27 Dose: 3 mg Metoprolol Tartrate (Metoprolol Tartrate 50 Mg Tablet) 50 mg PO BID [facility]; Protocol Last Admin: 09/04/24 08:12 Dose: 50 mg Multivitamins/Vitamin C (Multivitamin Tablet) 1 tab PO DAILY [facility] Last Admin: 09/04/24 08:11 Dose: 1 tab Pantoprazole Sodium (Pantoprazole Sodium 20 Mg Tablet.Dr) 40 mg PO DAILY@0630 [facility] Last Admin: 09/04/24 07:05 Dose: 40 mg Perphenazine (Perphenazine 8 Mg Tablet) 8 mg PO BID [facility] Last Admin: 09/04/24 08:12 Dose: 8 mg Primidone (Primidone 50 Mg Tablet) 50 mg PO DAILY [facility] Last Admin: 09/04/24 08:11 Dose: 50 mg Quetiapine Fumarate (Quetiapine Fumarate 400 Mg Tablet) 400 mg PO BEDTIME [facility] Last Admin: 09/03/24 20:27 Dose: 400 mg Quetiapine Fumarate (Quetiapine Fumarate 100 Mg Tablet) 100 mg PO TID PRN PRN Reason: Anxiety Last Admin: 09/03/24 21:17 Dose: 100 mg Rivaroxaban (Rivaroxaban 20 Mg Tablet) 20 mg PO DAILY@1700 [facility] Last Admin: 09/03/24 17:38 Dose: 20 mg Trazodone HCl (Trazodone Hcl 50 Mg Tablet) 50 mg PO BEDTIME MRX1 PRN PRN Reason: Insomnia Vitamin D (Cholecalciferol (Vitamin D3) 10 Mcg Tablet) 10 mcg PO DAILY [facility] Last Admin: 09/04/24 08:12 Dose: 10 mcg <Doris Giron DNP - Last Filed: 09/11/24 15:24> Home medications: Home Medications ?Medication ?Instructions ?Recorded ?Confirmed ?Last Taken ?Type atorvastatin 40 mg tablet 40 mg PO BEDTIME 09/02/24 09/02/24 Unknown History escitalopram oxalate 10 mg tablet 10 mg PO DAILY 09/02/24 09/02/24 Unknown History fluticasone propionate 50 1 spray intranasal DAILY 09/02/24 09/02/24 Unknown History mcg/actuation nasal spray,suspension hydroxyzine HCl 25 mg tablet 25 mg PO TID PRN anxiety 09/02/24 09/02/24 Unknown History lisinopril 10 mg tablet 10 mg PO DAILY 09/02/24 09/02/24 Unknown History metoprolol tartrate 50 mg tablet 50 mg PO BID 09/02/24 09/02/24 Unknown History perphenazine 8 mg tablet 8 mg PO BID 09/02/24 09/02/24 Unknown History primidone 50 mg tablet 50 mg PO DAILY 09/02/24 09/02/24 Unknown History quetiapine 400 mg tablet 400 mg PO BEDTIME 09/02/24 09/02/24 Unknown History <Doris Giron DNP - Last Filed: 09/11/24 15:24> Physical Exam 2 Vital Signs and Narrative: Vital Signs: Last Vital Signs Temp 97.8 F 09/04/24 07:43 Pulse 66 09/04/24 07:43 Resp 14 09/04/24 07:43 BP 130/66 09/04/24 07:43 Pulse Ox 95 09/04/24 07:43 O2 Del Method Room Air 09/04/24 07:43 BMI result Body Mass Index 37.3 <Doris Giron DNP - Last Filed: 09/11/24 15:24> CONST: Alert and oriented, in NAD. Well nourished HEENT: Normocephalic, atraumatic, MMM, Eyes clear, Neck supple RESP: Lungs clear, RRR even and regular HEART:,RRR, S1, S2. No murmur, no edema GI:Abdomen Soft NT, ND. + BS times four :Deferred SKIN: Warm dry and intact, no visible lesions or rashes. No diaphoresis. NEURO:CN II-XII Intact bilaterally, Sensation intact. Speech clear PSYCH: Normal affect <Doris Giron DNP - Last Filed: 09/11/24 15:24> Results Labs CBC and Chem 7: 09/02/24 14:51 09/04/24 08:17 <Dorsi Giron DNP - Last Filed: 09/11/24 15:24> Labs: Laboratory Results - last 24 hr 09/03/24 09/04/24 09/04/24 15:41 08:17 10:46 Anion Gap 13 Estim Creat Clear Calc 166.0 Estimated GFR > 60 POC Glucose 199 H Random Glucose 131 H Estimat Average Glucose 126 Hemoglobin A1c % 6.0 Calcium 9.4 Magnesium 1.9 Total Bilirubin 0.3 AST 34 ALT 96 H Alkaline Phosphatase 124 H Troponin I High Sens < 2.7 Total Protein 7.3 Albumin 4.3 Triglycerides 126 Cholesterol 111 LDL Cholesterol, Calc 54 HDL Cholesterol 32 L <Doris Giron DNP - Last Filed: 09/11/24 15:24> Assessment and Plan (1) Atypical chest pain: Status: Inactive <Doris Giron DNP - Last Filed: 09/11/24 15:24> Atypical chest pain Patient has had several workups at [facility] including [facility] and [facility] Has had negative workups to date Self reports history of MIs in his 20s. Unverifiable His EKG and troponins done today are normal No further cardiac workup recommended Itis recommended that patient follow up with an outpatient harp maker <Doris Giron DNP - Last Filed: 09/11/24 15:24>
--- NOTE | 2024-09-04 14:18 | P.DS_ITS ---
DS: Providers Provider Date of Service: 09/04/24 Date of admission: 09/03/24 14:36 Date of discharge: 09/04/24 Primary care physician: Tyler Physician Admitting clinician: Itzel Montiel Attending physician on admission: Jay Belle Consults: 09/03/24 17:20 Consult to Hospitalist Routine Comment: Consulting Provider: Doris Giron Reason For Exam: ? need for o2 at hs hx copd Attending physician on discharge: Jay Belle Discharging clinician: Itzel Montiel DS: Diagnosis Discharge Diagnosis (1) Bipolar disorder: Status: Acute (2) PTSD (post-traumatic stress disorder): Status: Acute (3) Autism: Status: Acute DS: Medications Discharge Medications Home Medications: Home Medications ?Medication ?Instructions ?Recorded ?Confirmed atorvastatin 40 mg tablet 40 mg PO BEDTIME 09/02/24 09/02/24 escitalopram oxalate 10 mg tablet 10 mg PO DAILY 09/02/24 09/02/24 fluticasone propionate 50 1 spray intranasal DAILY 09/02/24 09/02/24 mcg/actuation nasal spray,suspension hydroxyzine HCl 25 mg tablet 25 mg PO TID PRN anxiety 09/02/24 09/02/24 lisinopril 10 mg tablet 10 mg PO DAILY 09/02/24 09/02/24 metoprolol tartrate 50 mg tablet 50 mg PO BID 09/02/24 09/02/24 perphenazine 8 mg tablet 8 mg PO BID 09/02/24 09/02/24 primidone 50 mg tablet 50 mg PO DAILY 09/02/24 09/02/24 quetiapine 400 mg tablet 400 mg PO BEDTIME 09/02/24 09/02/24 Previous Rx's ?Medication ?Instructions ?Recorded cholecalciferol (vitamin D3) 10 10 mcg PO DAILY #30 tabs 06/02/24 mcg (400 unit) tablet (Vitamin D3) clopidogrel 75 mg tablet 75 mg PO DAILY #14 tabs 06/02/24 furosemide 20 mg tablet 20 mg PO DAILY #14 tabs 06/02/24 levothyroxine 25 mcg tablet 25 mcg PO DAILY@0600 #14 tabs 06/02/24 melatonin 3 mg tablet 3 mg PO BEDTIME #30 tabs 06/02/24 multivitamin (Daily-Marck tablet) 1 tab PO DAILY #30 tabs 06/02/24 pantoprazole 40 mg tablet,delayed 40 mg PO DAILY #14 tabs 06/02/24 release rivaroxaban 20 mg tablet (Xarelto) 20 mg PO DAILY@1700 #14 tabs 06/02/24 Mental Status Exam Mental Status Exam Narrative: Pt is alert and oriented; behavior is cooperative, friendly and calm; dressed in casual attire; mood is described as good eye contact appropriate; Speech is normal rate, volume and not pressured; thought process is organized; Thought content is on discharge; denies SI/HI/VH/AH. Data Data Completed and Pending Completed studies during hospitalization [Text1]: 09/02/24 09/02/24 09/02/24 14:51 18:31 21:36 WBC 5.8 RBC 4.85 Hgb 13.0 L D Hct 39.2 L D MCV 80.8 MCH 26.8 L MCHC 33.2 RDW 22.6 H Plt Count 259 MPV 9.9 Immature Gran % (Auto) 0.7 H Neut % (Auto) 59.4 Lymph % (Auto) 29.0 Foster % (Auto) 8.9 Eos % (Auto) 1.7 Baso % (Auto) 0.3 Lymph # (Auto) 1.7 Foster # (Auto) 0.5 Eos # (Auto) 0.1 Baso # (Auto) 0.0 Abs Immat Gran (auto) 0.04 H Absolute Neuts (auto) 3.5 Absolute Nucleated RBC 0.000 Nucleated RBC % (auto) 0.0 PT 13.0 H INR 1.1 APTT 33.7 Sodium 138 Potassium 3.7 Chloride 108 Carbon Dioxide 20 L Anion Gap 14 BUN 16 Creatinine 0.65 Estim Creat Clear Calc 179.5 Estimated GFR > 60 POC Glucose Random Glucose 214 H Estimat Average Glucose Hemoglobin A1c % Calcium 9.0 Magnesium 1.7 Total Bilirubin 0.2 Direct Bilirubin < 0.2 AST 21 ALT 14 Alkaline Phosphatase 73 Troponin I High Sens < 2.7 < 2.7 B-Natriuretic Peptide 14 Total Protein 6.7 Albumin 3.9 Triglycerides Cholesterol LDL Cholesterol, Calc HDL Cholesterol Urine Color Yellow Urine Appearance Clear Urine pH 5.5 Ur Specific [place] 1.025 Urine Protein Negative Urine Glucose (UA) Negative Urine Ketones Trace Urine Blood Negative Urine Nitrite Negative Ur Leukocyte Esterase Negative Urine Opiates Screen POSITIVE H Ur Buprenorphine Scrn Not Detected Ur Oxycodone Screen Not Detected Urine Methadone Screen Not Detected Urine Fentanyl Screen Not Detected Ur Barbiturates Screen Not Detected Ur Phencyclidine Scrn Not Detected Ur Amphetamines Screen Not Detected U Benzodiazepines Scrn Not Detected Urine Cocaine Screen Not Detected U Marijuana (THC) Screen Not Detected Ethyl Alcohol < 10 09/02/24 09/03/24 09/04/24 21:57 15:41 08:17 WBC RBC Hgb Hct MCV MCH MCHC RDW Plt Count MPV Immature Gran % (Auto) Neut % (Auto) Lymph % (Auto) Foster % (Auto) Eos % (Auto) Baso % (Auto) Lymph # (Auto) Foster # (Auto) Eos # (Auto) Baso # (Auto) Abs Immat Gran (auto) Absolute Neuts (auto) Absolute Nucleated RBC Nucleated RBC % (auto) PT INR APTT Sodium 138 Potassium 4.1 Chloride 106 Carbon Dioxide 23 Anion Gap 13 BUN 12 Creatinine 0.70 Estim Creat Clear Calc 166.0 Estimated GFR > 60 POC Glucose 197 H 199 H Random Glucose 131 H Estimat Average Glucose 126 Hemoglobin A1c % 6.0 Calcium 9.4 Magnesium 1.9 Total Bilirubin 0.3 Direct Bilirubin AST 34 ALT 96 H Alkaline Phosphatase 124 H Troponin I High Sens B-Natriuretic Peptide Total Protein 7.3 Albumin 4.3 Triglycerides 126 Cholesterol 111 LDL Cholesterol, Calc 54 HDL Cholesterol 32 L Urine Color Urine Appearance Urine pH Ur Specific [place] Urine Protein Urine Glucose (UA) Urine Ketones Urine Blood Urine Nitrite Ur Leukocyte Esterase Urine Opiates Screen Ur Buprenorphine Scrn Ur Oxycodone Screen Urine Methadone Screen Urine Fentanyl Screen Ur Barbiturates Screen Ur Phencyclidine Scrn Ur Amphetamines Screen U Benzodiazepines Scrn Urine Cocaine Screen U Marijuana (THC) Screen Ethyl Alcohol 09/04/24 10:46 WBC RBC Hgb Hct MCV MCH MCHC RDW Plt Count MPV Immature Gran % (Auto) Neut % (Auto) Lymph % (Auto) Foster % (Auto) Eos % (Auto) Baso % (Auto) Lymph # (Auto) Foster # (Auto) Eos # (Auto) Baso # (Auto) Abs Immat Gran (auto) Absolute Neuts (auto) Absolute Nucleated RBC Nucleated RBC % (auto) PT INR APTT Sodium Potassium Chloride Carbon Dioxide Anion Gap BUN Creatinine Estim Creat Clear Calc Estimated GFR POC Glucose Random Glucose Estimat Average Glucose Hemoglobin A1c % Calcium Magnesium Total Bilirubin Direct Bilirubin AST ALT Alkaline Phosphatase Troponin I High Sens < 2.7 B-Natriuretic Peptide Total Protein Albumin Triglycerides Cholesterol LDL Cholesterol, Calc HDL Cholesterol Urine Color Urine Appearance Urine pH Ur Specific [place] Urine Protein Urine Glucose (UA) Urine Ketones Urine Blood Urine Nitrite Ur Leukocyte Esterase Urine Opiates Screen Ur Buprenorphine Scrn Ur Oxycodone Screen Urine Methadone Screen Urine Fentanyl Screen Ur Barbiturates Screen Ur Phencyclidine Scrn Ur Amphetamines Screen U Benzodiazepines Scrn Urine Cocaine Screen U Marijuana (THC) Screen Ethyl Alcohol Imaging Diagnostic Imaging Impressions Chest X-Ray 09/02/24 14:16 IMPRESSION: No active pulmonary disease. No change from 04/21/2024. Electronically signed by: Billy Bañuelos MD 09/02/2024 02:25 PM EDT RP DS: Summary Hospital Course Hospital Course: Patient is a 49-year-old male with history of bipolar disorder, PTSD and autism spectrum disorder who presented to ER via EMS due to concerns of chest pain; when he was medically cleared patient reported suicidal ideation. Per crisis report, patient indicates that it is the anniversary of his mother. He presented alert and oriented x4. Pleasant. He reports calling EMS due to chest pain and suicidal ideation however only the medical aspect of his concerns were addressed before staff attempted to discharge him. Patient reported suicidal ideation with a plan to jump off a building and expresses intent if he were to discharge without mental health treatment or at a lower level of care. Patient denied HI/VH/AH. History of multiple inpatient psychiatric hospitalizations. He goes to a walk-in clinic in [place] where he sees a psychiatrist and therapist. During admission assessment, patient presents alert and oriented x3. Calm and cooperative. Patient reports feeling okay ; patient stated, I got discharged yesterday from an inpatient unit. I came to the ED because I'm homeless and I had chest pain. I lied and told them I was suicidal. I'm at my baseline and there is nothing for you guys to do. I need a respite bed not inpatient . When asked why he did not tell the crisis team this; patient stated, I don't know why I didn't tell them. But I get paid tomorrow and I can get myself a motel if needed . Patient denies SI/HI. Patient reports auditory and visual hallucinations at baseline which he reports he tries to ignore. Patient reports that he just wanted to be honest with us and would like to be discharged tomorrow morning. Patient requested to speak with T/W later in afternoon requesting to be discharged today, rather than in the morning. Pt stated, my daughter is in the hospital and I have to go be with her. My ex is not going so I have to go . Pt reports he plans on going to [place] to see his daughter and will follow up with his outpatient providers. Pt denies SI/HI/VH/AH. Status at Discharge Cognitive/behavioral status at discharge: Patient has insight and demonstrates good judgment in terms of wanting to pursue treatment. Patient has a safety plan that includes presenting to the closest ER or calling 911 if feeling unsafe. Functional status at discharge: independent ambulation Overall status at discharge: patient is back to baseline Time Spent with Patient Time attestation: Total time managing care of this patient today _20___ minutes. Time spent: Less than 30 minutes Discharge Plan Discharge Anticipated Discharge Date/Time: 09/04/24 15:00 Patient Disposition: Home, Self-Care Discharge Diagnosis: Bipolar d/o, PTSD, Autism spectrum d/o Referrals: [facility] [place] [facility] [Provider Group] (CH[facility] pain) Physician,None [Primary Care Provider] - 1 Week Discharge Medications: Continued melatonin 3 mg Tablet 3 mg PO BEDTIME Qty: 30 0RF furosemide 20 mg Tablet 20 mg PO DAILY Qty: 14 0RF Protocol: Hold for SBP< HOLD for SBP < : 90 multivitamin [Daily-Marck] Tablet 1 tab PO DAILY Qty: 30 0RF cholecalciferol (vitamin D3) [Vitamin D3] 10 mcg (400 unit) Tablet 10 mcg PO DAILY Qty: 30 0RF clopidogrel 75 mg Tablet 75 mg PO DAILY Qty: 14 0RF levothyroxine 25 mcg Tablet 25 mcg PO DAILY@0600 Qty: 14 0RF pantoprazole 40 mg tablet,delayed release (DR/EC) 40 mg PO DAILY Qty: 14 0RF Xarelto 20 mg Tablet 20 mg PO DAILY@1700 Qty: 14 0RF atorvastatin 40 mg tablet 40 mg PO BEDTIME primidone 50 mg tablet 50 mg PO DAILY lisinopril 10 mg tablet 10 mg PO DAILY metoprolol tartrate 50 mg tablet 50 mg PO BID hydroxyzine HCl 25 mg tablet 25 mg PO TID PRN (Reason: anxiety) perphenazine 8 mg tablet 8 mg PO BID fluticasone propionate 50 mcg/actuation spray,suspension 1 spray intranasal DAILY escitalopram oxalate 10 mg tablet 10 mg PO DAILY quetiapine 400 mg tablet 400 mg PO BEDTIME Discharge Orders: Discharge Order (Routine); Ordered 09/04/24 Ordered By: Itzel Montiel Diet: Regular diet Activity on Discharge: As tolerated Stand Alone Forms: Patient Portal Discharge page, Community Support Print Language: American Activity Restrictions/Additional Instructions: Recommend follow up with [facility] and PCP. Return to the ED immediately for any chest pain, shortness of breath, abdominal pain, pleurisy, leg swelling, calf pain, chest pain on inspration, fever, chills, coughing up blood, or any other concerning symptoms. Care Plan Goals: Maintain mood and safe behaviors Take medications as prescribed Practice coping skills Continue with outpatient providers and reach out to them as needed Health Concerns: Mood stability and behaviors Plan of Treatment: Follow up with your PCP, psychiatric provider and other outpatient providers regarding above concerns Take medications as prescribed Assessment: Patient has insight and demonstrates good judgment in terms of wanting to pursue treatment. Patient has a safety plan that includes presenting to the closest ER or calling 911 if feeling unsafe. Patient Instructions: Chest Pain (ED)
== END 2024-09-04 15:13 | disposition home or self-care (01) | DRG 885 ==
LOC: HO.ED 20:00 → HO.PADLT16 09-03 15:11
PROVIDERS: Physician Assistant; Student in an Organized Health Care Education/Training Program; Admitting Provider Psychiatry & Neurology Psychiatry; Emergency Provider Emergency Medicine; Responsible Provider Registered Nurse; Visit Provider Psychiatry & Neurology Psychiatry
DX: F31.9 Bipolar disorder, unspecified (principal); R45.851 Suicidal ideations; I25.2 Old myocardial infarction; E03.9 Hypothyroidism, unspecified; F84.0 Autistic disorder; R07.89 Other chest pain; F43.10 Post-traumatic stress disorder, unspecified; I25.10 Atherosclerotic heart disease of native coronary artery without angina pectoris; Z63.4 Disappearance and death of family member; Z86.711 Personal history of pulmonary embolism; Z79.01 Long term (current) use of anticoagulants; Z79.02 Long term (current) use of antithrombotics/antiplatelets; Z79.890 Hormone replacement therapy; Z79.899 Other long term (current) drug therapy
CPT/HCPCS: 36415; 71046; 80048; 80053; 80061; 80076; 80307; 81003; 82947; 83036; 83735; 83880; 84484; 85025; 85610; 85730; 93005; 99285; J2270; S9485

== ENCOUNTER → 2024-09-02 13:54 | Outpatient (BNV) | payer OTHER, SELFPAY | PROVIDERS: Emergency Provider Emergency Medicine; Visit Provider Internal Medicine Cardiovascular Disease | DX: R07.9 Chest pain, unspecified (principal) | CPT/HCPCS: 93010 ==

== ENCOUNTER → 2024-09-02 14:05 | Outpatient (BNV) | payer OTHER, SELFPAY | PROVIDERS: Emergency Provider Emergency Medicine; Visit Provider Radiology Diagnostic Radiology | DX: R07.9 Chest pain, unspecified (principal) | CPT/HCPCS: 71046 ==

== ENCOUNTER 2024-09-03 14:36 | Outpatient (BNV) | payer OTHER, SELFPAY | END 2024-09-03 14:58 | PROVIDERS: Admitting Provider Psychiatry & Neurology Psychiatry; Emergency Provider Emergency Medicine; Visit Provider Internal Medicine Cardiovascular Disease | DX: R07.9 Chest pain, unspecified (principal) | CPT/HCPCS: 93010 ==

== ENCOUNTER 2024-09-03 14:36 | Outpatient (BNV) | payer OTHER, SELFPAY | END 2024-09-04 08:47 | PROVIDERS: Admitting Provider Psychiatry & Neurology Psychiatry; Emergency Provider Emergency Medicine; Responsible Provider Registered Nurse; Visit Provider Internal Medicine Cardiovascular Disease | DX: R07.9 Chest pain, unspecified (principal) | CPT/HCPCS: 93010 ==

== ENCOUNTER → 2024-09-03 14:36 | Outpatient (BNV) | payer OTHER, SELFPAY | PROVIDERS: Admitting Provider Psychiatry & Neurology Psychiatry; Emergency Provider Emergency Medicine; Responsible Provider Registered Nurse; Visit Provider Nurse Practitioner Family | DX: R07.89 Other chest pain (principal) | CPT/HCPCS: 99222 ==

== ENCOUNTER → 2024-09-03 14:36 | Outpatient (BNV) | payer OTHER, SELFPAY | PROVIDERS: Admitting Provider Psychiatry & Neurology Psychiatry; Emergency Provider Emergency Medicine; Responsible Provider Registered Nurse; Visit Provider Registered Nurse | DX: F31.2 Bipolar disorder, current episode manic severe with psychotic features (principal); F43.11 Post-traumatic stress disorder, acute; F84.0 Autistic disorder | CPT/HCPCS: 90792; 99499 ==

== ENCOUNTER 2024-09-16 11:17 | Emergency (ER) | payer OTHER, SELFPAY ==
--- NOTE | ~2024-09-16 | XR_ITS ---
EXAMINATION: XR CHEST CLINICAL INFORMATION: chest pain COMPARISON: July 03, 2024 and April 21, 2024 TECHNIQUE: 2 views of the chest were obtained. FINDINGS: No significant abnormality is noted involving the heart, lungs, mediastinum, bony thorax or soft tissues. No interval change XR/XR chest 2V IMPRESSION: No acute disease. Electronically signed by: Alonzo Delgado MD 09/16/2024 12:49 PM EDT
--- NOTE | 2024-09-16 11:19 | ECG_ITS ---
Test Reason : CP Blood Pressure : */* mmHG Vent. Rate : 73 BPM Atrial Rate : 73 BPM P-R Int : 202 ms QRS Dur : 94 ms QT Int : 380 ms P-R-T Axes : 18 16 46 degrees QTcB Int : 418 ms Normal sinus rhythm Normal ECG When compared with ECG of 04-Sep-2024 08:47, No significant change was found Referred By: Generic ED Physician Electronically Signed By: NAMAN CASTELLANOS MD
[2024-09-16 11:59] VITALS: BP 130/67; PULSE 95; RESP 18; TEMP 36.6; O2SAT 96; BMI 39.0
--- NOTE | 2024-09-16 12:03 | ED.GENADULT ---
HPI - General Adult General Chief complaint: Chest Pain Stated complaint: Chest pain Time Seen by Provider: 09/16/24 18:55 Source: patient Limitations: other (Autism spectrum) History of Present Illness ED Provider: Ria Ma PA-C HPI narrative: 49-year-old male with a history of autism, obesity, hypothyroidism, hyperlipidemia, HTN, diabetes, ?6 heart attacks per patient with a 1 cardiac stent ?,prior PE on Xarelto, BPH presents with chest pain. Patient states he developed severe chest discomfort this morning. Discomfort is constant radiates to left arm jaw and upper back. Associated shortness of breath and nausea. Denies recent cough or cold symptoms. Denies mechanism of injury that could have cause chest wall strain. Related Data Home Medications ?Medication ?Instructions ?Recorded ?Confirmed atorvastatin 40 mg tablet 40 mg PO BEDTIME 09/02/24 09/16/24 escitalopram oxalate 10 mg tablet 10 mg PO DAILY 09/02/24 09/16/24 fluticasone propionate 50 1 spray intranasal DAILY 09/02/24 09/16/24 mcg/actuation nasal spray,suspension lisinopril 10 mg tablet 10 mg PO DAILY 09/02/24 09/16/24 metoprolol tartrate 50 mg tablet 50 mg PO BID 09/02/24 09/16/24 perphenazine 8 mg tablet 8 mg PO BID 09/02/24 09/16/24 primidone 50 mg tablet 50 mg PO BEDTIME 09/02/24 09/16/24 quetiapine 400 mg tablet 400 mg PO BEDTIME 09/02/24 09/16/24 carbidopa 25 mg-levodopa 250 mg 1 tab PO TID 09/16/24 09/16/24 tablet rivaroxaban 20 mg tablet (Xarelto) 20 mg PO BEDTIME 09/16/24 09/16/24 Previous Rx's ?Medication ?Instructions ?Recorded cholecalciferol (vitamin D3) 10 10 mcg PO DAILY #30 tabs 06/02/24 mcg (400 unit) tablet (Vitamin D3) clopidogrel 75 mg tablet 75 mg PO DAILY #14 tabs 06/02/24 furosemide 20 mg tablet 20 mg PO DAILY #14 tabs 06/02/24 levothyroxine 25 mcg tablet 25 mcg PO DAILY@0600 #14 tabs 06/02/24 melatonin 3 mg tablet 3 mg PO BEDTIME #30 tabs 06/02/24 multivitamin (Daily-Marck tablet) 1 tab PO DAILY #30 tabs 06/02/24 pantoprazole 40 mg tablet,delayed 40 mg PO DAILY #14 tabs 06/02/24 release Allergies Allergy/AdvReac Type Severity Reaction Status Date / Time acetaminophen [From TYLENOL] Allergy Severe ANAPHYLAXIS Verified 09/16/24 12:02 aspirin [ASA] Allergy Severe ANAPHYLAXIS Verified 09/16/24 12:02 nitroglycerin [NITROGLYCERIN] Allergy Severe ANAPHYLAXIS Verified 09/16/24 12:02 amoxicillin [AMOXICILLIN] Allergy Mild RASH Verified 09/16/24 12:02 fish derived [fish] Allergy Anaphylaxis Verified 09/16/24 12:02 ibuprofen Allergy Anaphylaxis Verified 09/16/24 12:02 Poultry Allergy Anaphylaxis Verified 09/16/24 12:02 Review of Systems Review of Systems: Yes all other systems are reviewed and are negative Constitutional: Constitutional: Denies fatigue and Denies fever(s) Cardiovascular: Cardiovascular: Reports chest pain and Reports dyspnea Respiratory: Respiratory: Denies cough and Reports dyspnea Gastrointestinal: Gastrointestinal: Denies abdominal pain, Reports nausea and Denies vomiting Psychiatric: Psychiatric: Reports suicidal ideation Endocrine: Endocrine: Denies fatigue [facility] Past Medical History Attestation statement: The following information was validated with the patient. Medical History (Updated 09/18/24 @ 00:00 by Clarissa Nazario) Suicidal ideation Chest pain Atypical chest pain Bipolar disorder Mood disorder PTSD (post-traumatic stress disorder) Depression History of pulmonary embolism BPH (benign prostatic hyperplasia) Diabetes Obesity Hypothyroid HLD (hyperlipidemia) CAD (coronary artery disease) Surgical History History of coronary artery stent placement Social History Social History Household Members: None Housing: Apartment Do you presently have visiting nurse or other home services: No Alcohol intake: never Patient Tobacco Use Status: Never used Tobacco e-Cigarette/Vaping Use: Never Used Second Hand Smoke Exposure: No Advance Directives: No Advance Directives Information Provided: No service: No Current occupational status: unemployed Sexual orientation: Straight/Heterosexual Physical Exam ED Vital Signs: Vital Signs - 24 hr 09/16/24 11:59 09/16/24 20:53 09/16/24 22:40 Temperature 97.8 F 97.5 F Pulse Rate 95 83 71 Respiratory Rate 18 20 16 Blood Pressure 130/67 135/77 120/47 L Pulse Oximetry 96 97 Oxygen Delivery Method Room Air Room Air 09/16/24 22:45 Temperature Pulse Rate 71 Respiratory Rate Blood Pressure 120/47 L Pulse Oximetry Oxygen Delivery Method BMI result Body Mass Index 39.0 Const Other: Alert well-appearing Orientation/consciousness: patient oriented x3 Resp Effort & Inspection: normal respiratory effort Cardio Other: Normal peripheral perfusion Skin Other: Warm dry no rash Neuro General: patient oriented x3, gait normal, no focal motor deficits and CN's II-XI intact bilaterally Psych Other: Cooperative at times Course Course Course Narrative: RME: 49-year-old male with history of stents HI presents to ED for left-sided chest pain going down left arm occurred 2 hours ago. Labs EKG chest x-ray ordered. Reevaluation(s) Reevaluation #1: Spoke with the Rina from the care team, he will be held overnight, discharged tomorrow after collateral information can be obtained from [facility]. He states he was just released from [facility], and that he does not have any of his medications. She relays that the patient has numerous resources, that could help him with Psychiatry, counseling, therapy and housing. He does not utilize them. Reevaluation #2: Time: 06:43 Date: 09/17/24 Provider: Sarabjit Pearl MD Patient in physician observation for psychiatric evaluation.? Patient has been in the emergency department for 19 hours. No acute events reported overnight. No current complaints. VS stable.? Patient was evaluated by the CARE team who felt that the patient does not meet IPLOC or Section 12 criteria but would benefit for ACCS admission. Patient will be re-evaluated in the morning by care team. We will continue to monitor. Reevaluation #3: Time: 07:55 Date: 09/17/24 Provider: Sarabjit Pearl MD Physician observation ended at 07:55 hours. P re-evaluated by the CARE team. Obtained the following information from the care team counselor. During the patient's last 4 visits to the emergency department, he complaining of chest pain and then after he was medically cleared stated that he was suicidal. At this time, it was felt that the patient is not actively suicidal and could be discharged to home with outpatient services. Patient will be referred to [facility]. The care team counselor will arrange a Lyft for the patient. Medications Administered Discontinued Medications Generic Name Dose Route Start Last Admin Trade Name Jovan PRN Reason Stop Dose Admin Atorvastatin Calcium 40 mg 09/16/24 22:15 09/16/24 22:45 Atorvastatin Calcium 40 Mg Tablet PO 40 mg BEDTIME ALYCIA Administration Carbidopa/Levodopa 1 tab 09/16/24 22:15 09/16/24 22:45 Carbidopa/Levodopa 25/250 Tablet PO 1 tab TID ALYCIA Administration Levothyroxine Sodium 25 mcg 09/17/24 06:00 09/17/24 06:53 Levothyroxine Sodium 25 Mcg Tablet PO Not Given DAILY@0600 ALYCIA Metoprolol Tartrate 50 mg 09/16/24 22:15 09/16/24 22:45 Metoprolol Tartrate 50 Mg Tablet PO 50 mg BID ALYCIA Administration Protocol Perphenazine 8 mg 09/16/24 22:15 09/16/24 22:45 Perphenazine 8 Mg Tablet PO 8 mg BID ALYCIA Administration Primidone 50 mg 09/16/24 22:15 09/16/24 22:45 Primidone 50 Mg Tablet PO 50 mg BEDTIME ALYCIA Administration Quetiapine Fumarate 400 mg 09/16/24 22:15 09/16/24 22:45 Quetiapine Fumarate 400 Mg Tablet PO 400 mg BEDTIME ALYCIA Administration Rivaroxaban 20 mg 09/16/24 22:15 09/16/24 22:45 Rivaroxaban 20 Mg Tablet PO 20 mg BEDTIME ALYCIA Administration Medical Decision Making Medical Decision Making [facility] Narrative: 49-year-old male with a history of autism, obesity, hypothyroidism, hyperlipidemia, HTN, diabetes, ?6 heart attacks per patient with a 1 cardiac stent ?,prior PE on Xarelto, BPH presents with chest pain. Patient states he developed severe chest discomfort this morning. Discomfort is constant radiates to left arm jaw and upper back. Associated shortness of breath and nausea. Denies recent cough or cold symptoms. Denies mechanism of injury that could have cause chest wall strain. Problem: Known coronary artery disease, autism spectrum History: Per patient I have considered the following differential diagnoses: ACS, chest wall strain, costochondritis, viral syndrome/pneumonia, malingering, SI, HI, decompensated psychiatric illness, drug/alcohol intoxication Plan: After I assessed the patient he verbalize that he is suicidal to nursing staff. This behaviors repetitive, the patient presents to the emergency room with chest pain, then toward the end of his assessment he states he is suicidal. He has been seen numerous times in the emergency room this year. We will be adding on aspirin and Tylenol levels, drug screen with a ethanol. We will place a care team consult. In regard to his complain of chest pain, thus far has a assessment is negative, delta troponin is in process. He has no cough cold symptoms to account for his discomfort, no mechanism of injury to support chest wall strain. I have independently reviewed the following tests: Labs: No leukocytosis, not anemic, no electrolyte abnormality, troponin < 2.7, delta troponin EKG: Normal sinus rhythm, rate of 73, no ischemic changes no ectopy Chest x-ray: XR/XR chest 2V IMPRESSION: No acute disease. Lab Data 09/16/24 12:39 09/16/24 12:39 Labs: Lab Results 09/16/24 09/16/24 09/16/24 Range/Units 12:39 19:32 20:43 WBC 5.6 (4.8-10.8) X10*3/uL RBC 5.01 (4.60-5.80) X10*6/uL Hgb 13.9 L (14.0-18.0) g/dl Hct 41.4 L (42.0-52.0) % MCV 82.6 (80.0-98.0) fL MCH 27.7 (27.0-33.0) pg MCHC 33.6 (31.0-36.0) g/dl RDW 21.2 H (11.0-16.0) % Plt Count 283 (160-400) X10*3/uL MPV 9.3 L (9.4-12.4) fL Immature Gran % (Auto) 0.7 H (0.0-0.4) % Neut % (Auto) 59.9 (45-73) % Lymph % (Auto) 27.7 (20-40) % [place] % (Auto) 9.0 (2-11) % Eos % (Auto) 2.2 (0-4) % Baso % (Auto) 0.5 (0-2) % Lymph # (Auto) 1.5 (1.2-4.9) X10*3/uL [place] # (Auto) 0.5 (0.1-1.2) X10*3/uL Eos # (Auto) 0.1 (0.0-0.4) X10*3/uL Baso # (Auto) 0.0 (0.0-0.2) X10*3/uL Abs Immat Gran (auto) 0.04 H (0.00-0.03) X10*3/uL Absolute Neuts (auto) 3.3 (2.0-8.3) x10*3/uL Absolute Nucleated RBC 0.000 (0.0-0.012) X10*3/uL Nucleated RBC % (auto) 0.0 (0.0-0.2) /100WBC PT 13.3 H (10.9-12.4) SEC INR 1.2 H (0.9-1.1) APTT 34.8 (26.0-36.8) SEC Sodium 139 (135-145) mmol/L Potassium 3.8 (3.3-5.1) mmol/L Chloride 110 H (96-108) mmol/L Carbon Dioxide 22 (22-29) mmol/L Anion Gap 11 L (12-20) BUN 12 (9-16) mg/dL Creatinine 0.74 (0.5-1.4) mg/dL Estim Creat Clear Calc 160.7 Estimated GFR > 60 Random Glucose 139 H (60-115) mg/dL Calcium 8.8 D (8.4-10.2) mg/dL Total Bilirubin 0.2 (0.0-1.0) mg/dL AST 28 (5-37) U/L ALT 19 (0-40) U/L Alkaline Phosphatase 61 (39-117) U/L Troponin I High Sens < 2.7 < 2.7 (<3.5-35.0) ng/L B-Natriuretic Peptide 47 (<100) pg/mL Total Protein 6.9 (6.5-8.0) g/dL Albumin 4.0 (3.5-5.0) g/dL Salicylates < 5.0 L (15-30) mg/dL Urine Opiates Screen Not Detected (Not Detect) Ur Buprenorphine Scrn Not Detected (Not Detect) ng/mL Ur Oxycodone Screen Not Detected (Not Detect) ng/mL Urine Methadone Screen Not Detected (Not Detect) ng/mL Urine Fentanyl Screen Not Detected (Not Detect) Acetaminophen < 3 (<30) mcg/mL Ur Barbiturates Screen Not Detected (Not Detect) Ur Phencyclidine Scrn Not Detected (Not Detect) Ur Amphetamines Screen Not Detected (Not Detect) U Benzodiazepines Scrn Not Detected (Not Detect) Urine Cocaine Screen Not Detected (Not Detect) U Marijuana (THC) Screen Not Detected (Not Detect) Ethyl Alcohol 11 mg/dL Discharge Plan Discharge Clinical Impression: Chest pain, Depression, Suicidal ideation Patient Disposition: Home, Self-Care Additional Instructions: Please follow the care team instructions You were seen in our Emergency Department today for treatment of a behavioral health issue. It is important after your visit that you follow up with either your behavioral health provider or a primary care doctor within 7 days.? If you have trouble finding a therapist you can reach out to [address] [phone] [facility] [place] [facility] can be reached 7 days a week 24 hours a day.? Call [phone] to speak with someone.? Return for any worsening symptoms or concerns such as thoughts of self harm or harm to others. Please call 911 if you feel your mental health is worsening.? Prescriptions: No Action carbidopa-levodopa 25-250 mg tablet 1 tab PO TID Xarelto 20 mg tablet 20 mg PO BEDTIME melatonin 3 mg Tablet 3 mg PO BEDTIME Qty: 30 0RF furosemide 20 mg Tablet 20 mg PO DAILY Qty: 14 0RF Protocol: Hold for SBP< HOLD for SBP < : 90 multivitamin [Daily-Marck] Tablet 1 tab PO DAILY Qty: 30 0RF cholecalciferol (vitamin D3) [Vitamin D3] 10 mcg (400 unit) Tablet 10 mcg PO DAILY Qty: 30 0RF clopidogrel 75 mg Tablet 75 mg PO DAILY Qty: 14 0RF levothyroxine 25 mcg Tablet 25 mcg PO DAILY@0600 Qty: 14 0RF pantoprazole 40 mg tablet,delayed release (DR/EC) 40 mg PO DAILY Qty: 14 0RF atorvastatin 40 mg tablet 40 mg PO BEDTIME primidone 50 mg tablet 50 mg PO BEDTIME lisinopril 10 mg tablet 10 mg PO DAILY metoprolol tartrate 50 mg tablet 50 mg PO BID perphenazine 8 mg tablet 8 mg PO BID fluticasone propionate 50 mcg/actuation spray,suspension 1 spray intranasal DAILY escitalopram oxalate 10 mg tablet 10 mg PO DAILY quetiapine 400 mg tablet 400 mg PO BEDTIME Interventions: ED Discharge Assessment Last Done: 09/17/24 09:17 Discharge Date/Time: 09/17/24 09:17 Print Language: Croatian
[2024-09-16 12:49] LABS: MANUAL DIFF FLAG NO
[2024-09-16 12:50] LABS: Basophils Percent Auto 0.5 % (0-2); Eosinophils Absolute Auto 0.1 X10*3/uL (0.0-0.4); Eosinophils Percent Auto 2.2 % (0-4); Hematocrit 41.4 % (42.0-52.0); Hemoglobin 13.9 g/dl (14.0-18.0); Imm Gran Abs Auto 0.04 X10*3/uL (0.00-0.03); Imm Gran Pct Auto 0.7 % (0.0-0.4); Lymphocytes Absolute Auto 1.5 X10*3/uL (1.2-4.9); Lymphocytes Percent Auto 27.7 % (20-40); Mean Corpuscular HGB Conc 33.6 g/dl (31.0-36.0); Mean Corpuscular Hemoglobin 27.7 pg (27.0-33.0); Mean Corpuscular Volume 82.6 fL (80.0-98.0); Mean Platelet Volume 9.3 fL (9.4-12.4); Monocytes Absolute Auto 0.5 X10*3/uL (0.1-1.2); Neutrophils Absolute Auto 3.3 x10*3/uL (2.0-8.3); Neutrophils Percent Auto 59.9 % (45-73); Platelet Count 283 X10*3/uL (160-400); Red Blood Count 5.01 X10*6/uL (4.60-5.80); Red Cell Distribution Width 21.2 % (11.0-16.0); White Blood Count 5.6 X10*3/uL (4.8-10.8)
[2024-09-16 12:56] LABS: INTERNATIONAL NORM RATIO 1.2 (0.9-1.1); Prothrombin Time 13.3 SEC (10.9-12.4)
[2024-09-16 12:58] LABS: Partial Thromboplastin Time 34.8 SEC (26.0-36.8)
[2024-09-16 13:06] LABS: Alanine Aminotransferase 19 U/L (0-40); Alkaline Phosphatase 61 U/L (39-117); Anion Gap 11 (12-20); Aspartate Amino Transferase 28 U/L (5-37); Bilirubin Total 0.2 mg/dL (0.0-1.0); Blood Urea Nitrogen 12 mg/dL (9-16); Calcium 8.8 mg/dL (8.4-10.2); Carbon Dioxide 22 mmol/L (22-29); Chloride 110 mmol/L (96-108); Creatinine Clr Calc Pharmacy 160.7; Estimated Glomerular Filt Rate > 60; Glucose Random 139 mg/dL (60-115); Potassium 3.8 mmol/L (3.3-5.1); Sodium 139 mmol/L (135-145); Total Protein 6.9 g/dL (6.5-8.0)
[2024-09-16 13:12] LABS: B Type Natriuretic Peptide 47 pg/mL (<100)
[2024-09-16 13:14] LABS: Troponin-I High Sensitivity < 2.7 ng/L (<3.5-35.0)
[2024-09-16 19:57] LABS: Ethanol 11 mg/dL
[2024-09-16 19:59] LABS: Troponin-I High Sensitivity < 2.7 ng/L (<3.5-35.0)
[2024-09-16 20:53] VITALS: BP 135/77; PULSE 83; RESP 20; TEMP 36.4; O2SAT 97
[2024-09-16 21:02] LABS: Amphetamine Screen Urine Not Detected (Not Detect); Barbiturates, Urine Not Detected (Not Detect); Benzodiazepines Screen Urine Not Detected (Not Detect); Buprenorphine Scr Not Detected (Not Detect); Cannabinoid Screen Urine Not Detected (Not Detect); Cocaine Screen Urine Not Detected (Not Detect); Fentanyl, urine Not Detected (Not Detect); Methadone Screen, Urine Not Detected (Not Detect); Opiate Screen Urine Not Detected (Not Detect); Oxycodone Screen Urine Not Detected (Not Detect); Phencyclidine Screen Urine Not Detected (Not Detect)
[2024-09-16 21:05] LABS: Acetaminophen LAB < 3 mcg/mL (<30); Salicylate < 5.0 mg/dL (15-30)
[2024-09-16 22:40] VITALS: BP 120/47; PULSE 71; RESP 16
[2024-09-16 22:45] VITALS: BP 120/47; PULSE 71
[2024-09-16] MEDS: Primidone 50 MG TABLET PO (22:45)
[2024-09-16] MEDS: Atorvastatin Calcium 40 MG TABLET PO (22:45)
[2024-09-16] MEDS: Metoprolol Tartrate 50 MG TABLET PO (22:45)
[2024-09-16] MEDS: Carbidopa/Levodopa 25/250 TABLET 1 TAB PO (22:45)
[2024-09-16] MEDS: Perphenazine 8 MG TABLET PO (22:45)
[2024-09-16] MEDS: QUEtiapine Fumarate 400 MG TABLET PO (22:45)
[2024-09-16] MEDS: Rivaroxaban 20 MG TABLET PO (22:45)
[2024-09-17 09:17] VITALS: BP 120/47; PULSE 71; RESP 18; TEMP -17.7; TEMP 0
--- NOTE | 2024-09-17 09:19 | MHC.CARE ---
Pt has been referred to [facility] [place] for a 7 day alert and 3 day follow up as well as other resources that may be available to him
--- NOTE | 2024-09-18 13:11 | MHC.CARE ---
Patient was seen by the CARE Team and referred to [facility]. Referral were generated and emailed.
== END 2024-09-17 09:17 | disposition home or self-care (01) ==
PROVIDERS: Physician Assistant; Physician Assistant Medical; Emergency Provider Emergency Medicine Emergency Medical Services
DX: F32.A Depression, unspecified (principal); R45.851 Suicidal ideations; R07.9 Chest pain, unspecified; R06.02 Shortness of breath; F31.9 Bipolar disorder, unspecified; F43.10 Post-traumatic stress disorder, unspecified; F84.0 Autistic disorder; E11.9 Type 2 diabetes mellitus without complications; E78.5 Hyperlipidemia, unspecified; E03.9 Hypothyroidism, unspecified; I25.2 Old myocardial infarction; E66.9 Obesity, unspecified; Z68.39 Body mass index [BMI] 39.0-39.9, adult; Z86.711 Personal history of pulmonary embolism; Z79.02 Long term (current) use of antithrombotics/antiplatelets; Z79.899 Other long term (current) drug therapy; Z79.01 Long term (current) use of anticoagulants
CPT/HCPCS: 36415; 71046; 80053; 80143; 80179; 80307; 83880; 84484; 85025; 85610; 85730; 93005; 99284; 99285; S9485

== ENCOUNTER → 2024-09-16 11:19 | Outpatient (BNV) | payer OTHER, SELFPAY | PROVIDERS: Emergency Provider Emergency Medicine Emergency Medical Services; Visit Provider Internal Medicine Cardiovascular Disease | DX: R07.9 Chest pain, unspecified (principal) | CPT/HCPCS: 93010 ==

== ENCOUNTER → 2024-09-16 12:03 | Outpatient (BNV) | payer OTHER, SELFPAY | PROVIDERS: Visit Provider Radiology Diagnostic Radiology | DX: R07.9 Chest pain, unspecified (principal) | CPT/HCPCS: 71046 ==

== ENCOUNTER 2024-09-30 16:24 | Emergency (ER) | payer OTHER, SELFPAY ==
--- NOTE | ~2024-09-30 | CT_ITS ---
CLINICAL HISTORY: upper abdominal pain CT abdomen and pelvis with contrast Comparison: CT - CT ABDOMEN PELVIS W IV CON - 09/30/24 19:33 EDT Findings: No consolidation or effusion. Gallbladder is surgically absent. Solid organs are within normal limits. No bowel obstruction, pneumoperitoneum, or pneumatosis. Gastric cong are present. There are multiple mildly prominent subcentimeter mesenteric lymph nodes with surrounding ground-glass density. Multiple mildly distended fluid-filled small bowel loops are present. Pelvic contents unremarkable. Normal appendix. The bones are intact. IMPRESSION: 1. Findings suggestive of gastroenteritis. This document has been electronically signed by: Titi Kimball MD on 09/30/2024 20:14:45
[2024-09-30 16:41] VITALS: BP 135/72; BP 145/90; PULSE 80; PULSE 92; RESP 16; TEMP 36.6; O2SAT 96; O2SAT 99; BMI 37.9
[2024-09-30 17:10] LABS: MANUAL DIFF FLAG NO
[2024-09-30 17:11] LABS: Basophils Percent Auto 0.3 % (0-2); Eosinophils Absolute Auto 0.1 X10*3/uL (0.0-0.4); Eosinophils Percent Auto 2.1 % (0-4); Hemoglobin 14.7 g/dl (14.0-18.0); Imm Gran Abs Auto 0.02 X10*3/uL (0.00-0.03); Imm Gran Pct Auto 0.3 % (0.0-0.4); Lymphocytes Absolute Auto 1.7 X10*3/uL (1.2-4.9); Lymphocytes Percent Auto 25.1 % (20-40); Mean Corpuscular HGB Conc 33.4 g/dl (31.0-36.0); Mean Corpuscular Hemoglobin 27.9 pg (27.0-33.0); Mean Corpuscular Volume 83.7 fL (80.0-98.0); Mean Platelet Volume 9.7 fL (9.4-12.4); Monocytes Absolute Auto 0.7 X10*3/uL (0.1-1.2); Monocytes Percent Auto 10.8 % (2-11); Neutrophils Absolute Auto 4.1 x10*3/uL (2.0-8.3); Neutrophils Percent Auto 61.4 % (45-73); Platelet Count 278 X10*3/uL (160-400); Red Blood Count 5.26 X10*6/uL (4.60-5.80); Red Cell Distribution Width 20.3 % (11.0-16.0); White Blood Count 6.7 X10*3/uL (4.8-10.8)
--- NOTE | 2024-09-30 17:16 | PC.NURSE ---
iv inserted, labs drawn, pt awaiting to see provider
[2024-09-30 18:24] LABS: Alanine Aminotransferase < 6 U/L (0-40); Albumin Level 3.8 g/dL (3.5-5.0); Alkaline Phosphatase 55 U/L (39-117); Anion Gap 15 (12-20); Aspartate Amino Transferase 21 U/L (5-37); Bilirubin Total 0.2 mg/dL (0.0-1.0); Blood Urea Nitrogen 16 mg/dL (9-16); Calcium 8.7 mg/dL (8.4-10.2); Carbon Dioxide 21 mmol/L (22-29); Chloride 107 mmol/L (96-108); Creatinine Clr Calc Pharmacy 186.1; Estimated Glomerular Filt Rate > 60; Glucose Random 90 mg/dL (60-115); Potassium 3.9 mmol/L (3.3-5.1); Sodium 139 mmol/L (135-145); Total Protein 6.6 g/dL (6.5-8.0)
--- NOTE | 2024-09-30 18:43 | ECG_ITS ---
Test Reason : PAIN Blood Pressure : */* mmHG Vent. Rate : 79 BPM Atrial Rate : 79 BPM P-R Int : 174 ms QRS Dur : 96 ms QT Int : 390 ms P-R-T Axes : 50 29 68 degrees QTcB Int : 447 ms Normal sinus rhythm Normal ECG When compared with ECG of 16-Sep-2024 11:27, No significant change was found Referred By: Roc Varela Electronically Signed By: NORM BOWERS
[2024-09-30] MEDS: Morphine Sulfate 4 MG/ML CARTRIDGE IVPUSH ×2 (19:04→23:00)
[2024-09-30] MEDS: ondansetron HCL 4 MG/2 ML VIAL IVPUSH (19:04)
--- NOTE | 2024-09-30 19:05 | ED.GENADULT ---
HPI - General Adult General Chief complaint: Abdominal Pain Stated complaint: black tarry stool, vomiting, from [place] Time Seen by Provider: 09/30/24 18:28 Source: patient, RN notes reviewed and old records reviewed Mode of arrival: EMS Limitations: no limitations History of Present Illness ED Provider: Nichole HPI narrative: 49-year-old male past medical history significant for bipolar disorder, PTSD, history of PE maintained on Xarelto, autism spectrum disorder, hypothyroidism, hyperlipidemia, diabetes presents for evaluation of multiple complaints. He complains of primarily upper abdominal pain and, he complains of vomiting black and bloody vomitus over last 3 days. He denies any history of similar. Does report a history of pancreatitis in his status post cholecystectomy. He reports that he has had a gastric bypass. He states that he has never been a drinker of alcohol He denies any black stool despite the triage note reporting black stool. He complains of 10/10 chest pain that radiates to his arm and back. He states that he has had 1 previous stent 25 years ago Denies any leg swelling, shortness of breath Related Data Home Medications ?Medication ?Instructions ?Recorded ?Confirmed atorvastatin 40 mg tablet 40 mg PO BEDTIME 09/02/24 09/16/24 escitalopram oxalate 10 mg tablet 10 mg PO DAILY 09/02/24 09/16/24 fluticasone propionate 50 1 spray intranasal DAILY 09/02/24 09/16/24 mcg/actuation nasal spray,suspension lisinopril 10 mg tablet 10 mg PO DAILY 09/02/24 09/16/24 metoprolol tartrate 50 mg tablet 50 mg PO BID 09/02/24 09/16/24 perphenazine 8 mg tablet 8 mg PO BID 09/02/24 09/16/24 primidone 50 mg tablet 50 mg PO BEDTIME 09/02/24 09/16/24 quetiapine 400 mg tablet 400 mg PO BEDTIME 09/02/24 09/16/24 carbidopa 25 mg-levodopa 250 mg 1 tab PO TID 09/16/24 09/16/24 tablet rivaroxaban 20 mg tablet (Xarelto) 20 mg PO BEDTIME 09/16/24 09/16/24 Previous Rx's ?Medication ?Instructions ?Recorded cholecalciferol (vitamin D3) 10 10 mcg PO DAILY #30 tabs 02/24/25 mcg (400 unit) tablet (Vitamin D3) clopidogrel 75 mg tablet 75 mg PO DAILY #14 tabs 06/02/24 furosemide 20 mg tablet 20 mg PO DAILY #14 tabs 06/02/24 levothyroxine 25 mcg tablet 25 mcg PO DAILY@0600 #14 tabs 06/02/24 melatonin 3 mg tablet 3 mg PO BEDTIME #30 tabs 06/02/24 multivitamin (Daily-Marck tablet) 1 tab PO DAILY #30 tabs 06/02/24 pantoprazole 40 mg tablet,delayed 40 mg PO DAILY #14 tabs 06/02/24 release omeprazole 40 mg capsule,delayed 40 mg PO BID #28 caps 09/30/24 release Allergies Allergy/AdvReac Type Severity Reaction Status Date / Time acetaminophen (From TYLENOL) Allergy Severe ANAPHYLAXIS Verified 09/30/24 16:42 aspirin (ASA) Allergy Severe ANAPHYLAXIS Verified 09/30/24 16:42 nitroglycerin (NITROGLYCERIN) Allergy Severe ANAPHYLAXIS Verified 09/30/24 16:42 amoxicillin (AMOXICILLIN) Allergy Mild RASH Verified 09/30/24 16:42 fish derived (fish) Allergy Anaphylaxis Verified 09/30/24 16:42 ibuprofen Allergy Anaphylaxis Verified 09/30/24 16:42 Poultry Allergy Anaphylaxis Verified 09/30/24 16:42 Review of Systems Constitutional: Constitutional: Denies body ache(s), Denies chills, Denies fever(s) and Denies frequent falls Eyes: Eyes: Denies blurry vision ENT: Denies dizziness and Denies mouth pain Cardiovascular: Cardiovascular: Reports chest pain, Reports chest pain at rest, Reports chest pain with activity and Denies dyspnea on exertion Respiratory: Respiratory: Denies cough and Denies dyspnea on exertion Gastrointestinal: Gastrointestinal: Reports abdominal pain, Denies melena, Denies hematochezia, Reports nausea, Reports vomiting and Reports hematemesis Musculoskeletal: Musculoskeletal: Reports back pain Integumentary/Breasts: Skin/Breast: Denies rash Neurologic: Denies dizziness and Denies frequent falls Psychiatric: Psychiatric: Denies anxiety PMFSH Past Medical History Medical History (Updated 09/30/24 @ 23:21 by Roc Varela) Suicidal ideation Chest pain Atypical chest pain Bipolar disorder Mood disorder PTSD (post-traumatic stress disorder) Depression History of pulmonary embolism BPH (benign prostatic hyperplasia) Diabetes Obesity Hypothyroid HLD (hyperlipidemia) CAD (coronary artery disease) Surgical History History of coronary artery stent placement Social History Social History Household Members: None Housing: Apartment Do you presently have visiting nurse or other home services: No Alcohol intake: never Patient Tobacco Use Status: Never used Tobacco Smoked in Last 30 Days: No e-Cigarette/Vaping Use: Never Used Second Hand Smoke Exposure: No Use of substances other than those prescribed or required for medical reasons: No Advance Directives: No Advance Directives Information Provided: No Do you have a plan to hurt others: No Plan service: No Current occupational status: unemployed Sexual orientation: Straight/Heterosexual Physical Exam ED Vital Signs: Vital Signs - 24 hr 09/30/24 16:41 09/30/24 19:51 09/30/24 21:15 Temperature 97.9 F 98.3 F Pulse Rate 92 77 88 Respiratory Rate 16 15 18 Blood Pressure 135/72 111/61 135/79 Pulse Oximetry 96 95 Oxygen Delivery Method Room Air Room Air 09/30/24 22:49 Temperature 97.7 F Pulse Rate 84 Respiratory Rate 17 Blood Pressure 112/59 L Pulse Oximetry 95 Oxygen Delivery Method Room Air BMI result Body Mass Index 37.9 Const General: healthy appearing, comfortable, no acute distress, alert and awake Nutritional Appearance: well nourished Orientation/consciousness: patient oriented x3 HENMT Head: Yes normocephalic and Yes atraumatic Eyes Eyelids: Yes eyelids normal Conjunctivae: conjunctivae normal Sclerae: sclerae normal Corneas: corneas normal Pupils: Equal, round and reactive pupils present EOM: EOMs intact bilaterally Neck Neck: Yes full ROM Resp Effort & Inspection: normal respiratory effort, able to speak in complete sentences, no audible wheezes and not labored Auscultation: clear to auscultation bilaterally GI Inspection: No distended Palpation (GI): Soft to palpation, not firm, Tenderness to palpation present (GI) (diffuse), Guarding due to palpation present (GI) and not rigid Skin General skin exam: elasticity normal Neuro General: patient oriented x3 Cranial nerves: Yes Equal, round and reactive pupils present and Yes Bilaterally intact EOM present Cognition (Neuro): normal cognition Extrem Other: Moving all extremities well without any obvious deformities Course Reevaluation(s) Reevaluation #1: Patient's CT scan shows gastroenteritis given the guaiac-positive test in the patient being on Xarelto I did discuss with GI, Dr. Knowles. The patient appears quite well in his hemodynamically stable with a hemoglobin of 14.7, recommends discharge back to the patient's facility, with high-dose PPI and repeat H&H and 48 hours. I discussed this with the patient and he is agreeable to the plan. Time: 23:19 Medications Administered Discontinued Medications Generic Name Dose Route Start Last Admin Trade Name Freq PRN Reason Stop Dose Admin Sodium Chloride 1,000 mls @ 999 mls/hr 09/30/24 21:00 09/30/24 22:49 Ns IV 09/30/24 22:00 Infused .Q1H1M ALYCIA Infusion Iohexol 100 ml 09/30/24 19:40 09/30/24 19:41 Iohexol 350 Mg/Ml 100 Ml Infus..Btl IV 09/30/24 19:41 85 ml ONCE ONE Administration Morphine Sulfate 4 mg 09/30/24 18:57 09/30/24 19:04 Morphine Sulfate 4 Mg/Ml Cartridge IVPUSH 09/30/24 18:58 4 mg ONCE ONE Administration Protocol Morphine Sulfate 4 mg 09/30/24 22:55 09/30/24 23:00 Morphine Sulfate 4 Mg/Ml Cartridge IVPUSH 09/30/24 22:56 4 mg ONCE ONE Administration Protocol Ondansetron HCl 4 mg 09/30/24 18:57 09/30/24 19:04 Ondansetron Hcl 4 Mg/2 Ml Vial IVPUSH 09/30/24 18:58 4 mg ONCE ONE Administration Pantoprazole Sodium 40 mg 09/30/24 19:41 09/30/24 19:51 Pantoprazole Sodium 40 Mg/10 Ml Vial IVPUSH 09/30/24 19:42 40 mg ONCE ONE Administration Medical Decision Making Medical Decision Making MDM Narrative: 49-year-old male past medical history as above presents for evaluation of multiple complaints including abdominal pain, chest pain. He complains of vomiting black and bloody vomitus. The patient is quite well appearing, EKG is nonischemic, his labs are reassuring, notably his hemoglobin is 14.7 which is actually above his baseline. He denies any history of alcohol abuse or liver cirrhosis, so less likely esophageal varices. He has also not actively vomiting. A rectal exam was performed this showed brown stool. He does have diffuse abdominal tenderness. I suspect his pain may be related to heartburn/gastritis. Given his previous coronary artery disease with stenting I ordered a troponin despite the reassuring EKG. A lipase was also ordered given his upper abdominal pain. Differential Diagnosis Differential Diagnoses: The differential diagnosis associated with the presentation includes GERD Gastritis Upper abdominal pain Constipation Pancreatitis GI bleed Gastric ulcer ACS less likely Lab Data MDM Lab Attestation statement: I reviewed the patient's lab results. The patient's lipase was elevated to 149. Stool was guaiac positive 09/30/24 17:06 09/30/24 18:04 Labs: Lab Results 09/30/24 09/30/24 09/30/24 Range/Units 17:06 18:04 19:03 WBC 6.7 (4.8-10.8) X10*3/uL RBC 5.26 (4.60-5.80) X10*6/uL Hgb 14.7 (14.0-18.0) g/dl Hct 44.0 (42.0-52.0) % MCV 83.7 (80.0-98.0) fL MCH 27.9 (27.0-33.0) pg MCHC 33.4 (31.0-36.0) g/dl RDW 20.3 H (11.0-16.0) % Plt Count 278 (160-400) X10*3/uL MPV 9.7 (9.4-12.4) fL Immature Gran % (Auto) 0.3 (0.0-0.4) % Neut % (Auto) 61.4 (45-73) % Lymph % (Auto) 25.1 (20-40) % [place] % (Auto) 10.8 (2-11) % Eos % (Auto) 2.1 (0-4) % Baso % (Auto) 0.3 (0-2) % Lymph # (Auto) 1.7 (1.2-4.9) X10*3/uL [place] # (Auto) 0.7 (0.1-1.2) X10*3/uL Eos # (Auto) 0.1 (0.0-0.4) X10*3/uL Baso # (Auto) 0.0 (0.0-0.2) X10*3/uL Abs Immat Gran (auto) 0.02 (0.00-0.03) X10*3/uL Absolute Neuts (auto) 4.1 (2.0-8.3) x10*3/uL Absolute Nucleated RBC 0.000 (0.0-0.012) X10*3/uL Nucleated RBC % (auto) 0.0 (0.0-0.2) /100WBC Sodium 139 (135-145) mmol/L Potassium 3.9 (3.3-5.1) mmol/L Chloride 107 (96-108) mmol/L Carbon Dioxide 21 L (22-29) mmol/L Anion Gap 15 (12-20) BUN 16 (9-16) mg/dL Creatinine 0.63 (0.5-1.4) mg/dL Estim Creat Clear Calc 186.1 Estimated GFR > 60 Random Glucose 90 (60-115) mg/dL Calcium 8.7 (8.4-10.2) mg/dL Total Bilirubin 0.2 (0.0-1.0) mg/dL AST 21 (5-37) U/L ALT < 6 (0-40) U/L Alkaline Phosphatase 55 (39-117) U/L Troponin I High Sens < 2.7 (<3.5-35.0) ng/L Total Protein 6.6 (6.5-8.0) g/dL Albumin 3.8 (3.5-5.0) g/dL Lipase 149 H (8-78) U/L Urine Color Urine Appearance Urine pH (5.0-9.0) Ur Specific [place] (1.005-1.025) Urine Protein (Neg-Trace) mg/dL Urine Glucose (UA) (Negative) mg/dL Urine Ketones (Negative) mg/dL Urine Blood (Negative) Urine Nitrite (Negative) Ur Leukocyte Esterase (Negative) Stool Occult Blood POSITIVE (NEGATIVE) 09/30/24 Range/Units 22:14 WBC (4.8-10.8) X10*3/uL RBC (4.60-5.80) X10*6/uL Hgb (14.0-18.0) g/dl Hct (42.0-52.0) % MCV (80.0-98.0) fL MCH (27.0-33.0) pg MCHC (31.0-36.0) g/dl RDW (11.0-16.0) % Plt Count (160-400) X10*3/uL MPV (9.4-12.4) fL Immature Gran % (Auto) (0.0-0.4) % Neut % (Auto) (45-73) % Lymph % (Auto) (20-40) % [place] % (Auto) (2-11) % Eos % (Auto) (0-4) % Baso % (Auto) (0-2) % Lymph # (Auto) (1.2-4.9) X10*3/uL [place] # (Auto) (0.1-1.2) X10*3/uL Eos # (Auto) (0.0-0.4) X10*3/uL Baso # (Auto) (0.0-0.2) X10*3/uL Abs Immat Gran (auto) (0.00-0.03) X10*3/uL Absolute Neuts (auto) (2.0-8.3) x10*3/uL Absolute Nucleated RBC (0.0-0.012) X10*3/uL Nucleated RBC % (auto) (0.0-0.2) /100WBC Sodium (135-145) mmol/L Potassium (3.3-5.1) mmol/L Chloride (96-108) mmol/L Carbon Dioxide (22-29) mmol/L Anion Gap (12-20) BUN (9-16) mg/dL Creatinine (0.5-1.4) mg/dL Estim Creat Clear Calc Estimated GFR Random Glucose (60-115) mg/dL Calcium (8.4-10.2) mg/dL Total Bilirubin (0.0-1.0) mg/dL AST (5-37) U/L ALT (0-40) U/L Alkaline Phosphatase (39-117) U/L Troponin I High Sens (<3.5-35.0) ng/L Total Protein (6.5-8.0) g/dL Albumin (3.5-5.0) g/dL Lipase (8-78) U/L Urine Color Yellow Urine Appearance Clear Urine pH 6.0 (5.0-9.0) Ur Specific [place] >= 1.030 H (1.005-1.025) Urine Protein Negative (Neg-Trace) mg/dL Urine Glucose (UA) 100 H (Negative) mg/dL Urine Ketones 15 (Negative) mg/dL Urine Blood Negative (Negative) Urine Nitrite Negative (Negative) Ur Leukocyte Esterase Negative (Negative) Stool Occult Blood (NEGATIVE) Independent Interpretation I performed an independent interpretation of an: EKG (Normal sinus rhythm with a rate of 79 beats minute. Nondiagnostic EKG) Discharge Plan Discharge Clinical Impression: Gastroenteritis, Guaiac positive stools Patient Disposition: er [facility] Transfer Details: [facility] Instructions: Gastroenteritis (ED) Additional Instructions: I recommend taking omeprazole 40 mg daily twice daily for the next 2 weeks and then decreasing back down to 20 mg daily. It is important that you follow up with GI. Call tomorrow to schedule an appointment In his recommended that you get repeat hemoglobin hematocrit blood draw in 48 hours Return to the ER for new or worsening symptoms, especially you are unable to tolerate any food due to intractable nausea and vomiting, develop fevers or lightheadedness, dizziness Prescriptions: New omeprazole 40 mg capsule,delayed release(DR/EC) 40 mg PO BID Qty: 28 0RF No Action carbidopa-levodopa 25-250 mg tablet 1 tab PO TID Xarelto 20 mg tablet 20 mg PO BEDTIME melatonin 3 mg Tablet 3 mg PO BEDTIME Qty: 30 0RF furosemide 20 mg Tablet 20 mg PO DAILY Qty: 14 0RF Protocol: Hold for SBP< HOLD for SBP < : 90 multivitamin [Daily-Marck] Tablet 1 tab PO DAILY Qty: 30 0RF cholecalciferol (vitamin D3) [Vitamin D3] 10 mcg (400 unit) Tablet 10 mcg PO DAILY Qty: 30 0RF clopidogrel 75 mg Tablet 75 mg PO DAILY Qty: 14 0RF levothyroxine 25 mcg Tablet 25 mcg PO DAILY@0600 Qty: 14 0RF pantoprazole 40 mg tablet,delayed release (DR/EC) 40 mg PO DAILY Qty: 14 0RF atorvastatin 40 mg tablet 40 mg PO BEDTIME primidone 50 mg tablet 50 mg PO BEDTIME lisinopril 10 mg tablet 10 mg PO DAILY metoprolol tartrate 50 mg tablet 50 mg PO BID perphenazine 8 mg tablet 8 mg PO BID fluticasone propionate 50 mcg/actuation spray,suspension 1 spray intranasal DAILY escitalopram oxalate 10 mg tablet 10 mg PO DAILY quetiapine 400 mg tablet 400 mg PO BEDTIME Print Language: Latvian
[2024-09-30 19:06] LABS: Lipase 149 U/L (8-78)
--- OUTSIDE RECORDS SUMMARY | 2024-09-30 19:11 | XMS_ITS | Clinical Summary ---
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 Furnace Mechanic Name Role Phone None, Pcp [place] MD Primary Care Provider [phone] Allergies Active Allergy Reactions Criticality Noted Date [...] EDT - 08/14/2024 12:22 PM EDT Emergency [facility] [address] [address] Charlie Matias MD Mamdouhi, Kevan, MD Wang, [...] 70 08/14/2024 9:46 AM EDT Temperature 37.2 C (98.9 F) 08/13/2024 8:10 PM EDT Respiratory Rate 16 08/14/2024 9:46 AM EDT Oxygen Saturation 97% 08/14/2024 9:46 AM EDT Inhaled Oxygen Concentration - - Weight 120 kg (265 lb) 08/13/2024 8:10 PM EDT Height 175.3 cm (5' 9 ) 08/13/2024 8:10 PM EDT Body Mass Index 39.13 08/13/2024 8:10 PM EDT Plan of Treatment Health Maintenance Due Date Last Done Comments SDM 1976 Urine Microalbumin 1976 Depression Screening 1980 Diabetic Eye Exam 1994 DTaP,Tdap,and Td Vaccines (1 - Tdap) 08/01/1995 Medicare Initial AWV G0438 11/07/2000 Pneumococcal Vaccine: Pediatrics (0 to 5 Years) and At-Risk Patients (6 to 64 Years) (2 of 2 - PCV) 02/18/2017 02/19/2016, 09/01/2013, 02/15/2011 PSA 06/28/2019 06/27/2017 Prostate Cancer Screening 06/28/2019 CT Colonography 2021 Colonoscopy 2021 Colorectal Cancer Screening 2021 FIT 2021 FOBT 2021 Multitarget Stool DNA (Cologuard) 2021 Sigmoidoscopy 2021 COVID-19 Vaccine ( - season) 2023 Hemoglobin A1c 10/02/2024 04/03/2024, 03/09, 03/09/2024, Additional history exists Influenza Vaccine (Season Ended) 2024 03/05/2021, 01/02/2020, 12/12/2018, Additional history exists Lipid Panel 03/09/2025 03/09/2024, 01/08, 09/13/2021, Additional history exists Blood Pressure 08/14/2025 08/14/2024 Hepatitis C Screening Completed 01/17/2017 Meningococcal B Vaccines Aged Out No longer [...] (B-Type Natriuretic Peptide) (08/13/2024 8:28 PM EDT) Pathologist [facility] Beta-Natriuret ic Peptide (BNP) 13 0 - 50 pg/mL [place] [id number] 08/13/2024 8:57 PM EDT [facility] Blood PERIPHERAL BLOOD SPECIMEN / Unknown Venipuncture / Unknown 08/13/2024 8:28 PM EDT 08/13/2024 8:33 PM EDT Charlie Matias MD LAB BLOOD ORDERABLES Final R esult [address] [address] * Troponin I (08/13/2024 8:28 PM EDT) [facility] Troponin I <0.01 <=0.08 ng/mL COLFAX [id number] 08/13/2024 8:56 PM EDT [facility] Blood PERIPHERAL BLOOD SPECIMEN / Unknown Venipuncture / Unknown 08/13/2024 8:28 PM EDT 08/13/2024 8:33 PM EDT Charlie Matias MD LAB BLOOD ORDERABLES Final R esult [address] [id number] * XR Chest 2 Vw (if able to travel) (08/13/2024 7:29 PM EDT) Anatomical Region Laterality Modality Chest Digital Radiogra phy 08/13/2024 7:55 PM EDT Impressions 08/13/2024 7:51 PM EDT No acute cardiopulmonary abnormality. Narrative 08/13/2024 7:51 PM EDT EXAM DESCRIPTION: XR CHEST 2 VW TECHNIQUE: XR CHEST 2 VW COMPARISON: XR CHEST 2 VW, ACC: [id number], dated 2019-01-14 15:57:16 INDICATION: chest pain FINDINGS: LINES/TUBES/DEVICES: None. LUNGS/PLEURA: No focal consolidation. No pleural effusion. No pneumothorax. HEART AND MEDIASTINUM: Normal cardiomediastinal silhouette. OSSEOUS/OTHER: No acute osseous abnormality. Procedure Note Germán Espinoza DO - 08/13/2024 EXAM DESCRIPTION: XR CHEST 2 VW TECHNIQUE: XR CHEST 2 VW COMPARISON: XR CHEST 2 VW, ACC: [id number], dated 2019-01-14 15:57:16 INDICATION: chest pain FINDINGS: LINES/TUBES/DEVICES: None. LUNGS/PLEURA: No focal consolidation. No pleural effusion. Nopneumothorax. HEART AND MEDIASTINUM: Normal cardiomediastinal silhouette. OSSEOUS/OTHER: No acute osseous abnormality. IMPRESSION: No acute cardiopulmonary abnormality. Charlie Matias MD IM DIAGNOSTIC IMAGING ORDER GIOVANI Final Result * ECG 12 lead, STAT, show (08/13/2024 6:32 PM EDT) Ventricular Heart Rate 62 BPM EKG BUR MUSE Atrial Heart Rate 62 BPM EKG [facility] DE Interval 168 ms EKG [facility] QRSD Interval 104 ms EKG [facility] MUSE QT Interval 394 ms EKG [facility] QTC Interval 399 ms EKG BUR MUSE P Ghent 14 degrees EKG BUR MUSE R G[place]t 25 degrees EKG BUR MUSE T Wave G[place]t 24 degrees EKG BUR MUSE 08/13/2024 6:22 PM EDT 08/15/2024 10:07 AM EDT Narrative EKG BUR MUSE - 08/15/2024 10:07 AM EDT Normal sinus rhythm Normal ECG When compared with ECG of 24-Feb-2024 09:43, (Unconfirmed) No significant change was found Confirmed by Lucero Camarillo ([id number]) on 08/15/2024 10:07:22 AM Procedure Note uLcero Delgado MD - 08/15/2024 Normal sinus rhythm Normal ECG When compared with ECG of 24-Feb-2024 09:43, (Unconfirmed) No significant change was found Confirmed by Lucero Camarillo ([id number]) on 08/15/2024 10:07:22 AM Charlie Matias MD ECG ORDERABLES Final Result Performing Organization Address City/[facility]/ZIP Co de Phone Number EKG BUR MUSE [address] [place] [phone] * Troponin (08/13/2024 6:29 PM EDT) [facility] Troponin I <0.01 <=0.08 ng/mL [facility] [id number] 08/13/2024 6:54 PM EDT [facility] Blood PERIPHERAL BLOOD SPECIMEN / Unknown Venipuncture / Unknown 08/13/2024 6:29 PM EDT 08/13/2024 6:30 PM EDT Charlie Matias MD LAB BLOOD ORDERABLES Final R esult Performing Organization Address [facility] Co de Phone Number [address] [address] * (ABNORMAL) RBC WBC PLT Morphology (08/13/2024 6:29 PM EDT) [facility] RBC Abnormalities Polychrom nani(A) (none) 08/13/2024 8:57 PM EDT [facility] Blood PERIPHERAL BLOOD SPECIMEN / Unknown Venipuncture / Unknown 08/13/2024 6:29 PM EDT 08/13/2024 6:40 PM EDT Charlie Matias MD LAB BLOOD ORDERABLES Final R esult Performing Organization Address City/[facility]/ZIP Co de Phone Number [address] [address] * (ABNORMAL) CBC and Differential (08/13/2024 6:29 PM EDT) WBC 5.75 4.00 - 11.00 K/uL 08/13/2024 8:57 PM EDT [facility] RBC 5.03 4.50 - 5.90 M/uL 08/13/2024 8:57 PM EDT [facility] Hemoglobin 12.7(L) 13.8 - 17.4 g/dL 08/13/2024 8:57 PM EDT [facility] Hematocrit 39.7(L) 41.0 - 51.0 % 08/13/2024 8:57 PM EDT [facility] MCV 79(L) 80 - 96 fL 08/13/2024 8:57 PM EDT [facility] RDW 23.4(H) 11.6 - 14.6 % 08/13/2024 8:57 PM EDT [facility] Platelet Count 293 150 - 450 K/uL 08/13/2024 8:57 PM EDT [facility] Differential Performed Slide Reviewed, auto reported 08/13/2024 8:57 PM EDT [facility] Blood PERIPHERAL BLOOD SPECIMEN / Unknown Venipuncture / Unknown 08/13/2024 6:29 PM EDT 08/13/2024 6:40 PM EDT Charlie Matias MD LAB BLOOD ORDERABLES Final R esult [address] [address] * Lavender Top (08/13/2024 6:29 PM EDT) Lav Top Tube Received 08/13/2024 8:02 PM EDT [facility] Blood PERIPHERAL BLOOD SPECIMEN / Unknown Venipuncture / Unknown 08/13/2024 6:29 PM EDT 08/13/2024 6:40 PM EDT Charlie Matias MD LAB BLOOD ORDERABLES Final R esult [address] [address], [place] * Mint Green Top (08/13/2024 6:29 PM EDT) [facility] PST Tube Received 08/13/2024 8:02 PM EDT [facility] Blood PERIPHERAL BLOOD SPECIMEN / Unknown Venipuncture / Unknown 08/13/2024 6:29 PM EDT 08/13/2024 6:30 PM EDT Charlie Matias MD LAB BLOOD ORDERABLES Final R esult Performing Organization Address City/[facility]/ZIP Co de Phone Number [address] [address], [place] * Blue Top (08/13/2024 6:29 PM EDT) [facility] Blue Top Tube Received 08/13/2024 6:42 PM EDT [facility] Blood PERIPHERAL BLOOD SPECIMEN / Unknown Venipuncture / Unknown 08/13/2024 6:29 PM EDT 08/13/2024 6:30 PM EDT Charlie Matias MD LAB BLOOD ORDERABLES Final R esult Performing Organization Address City/[facility] [place] [place] [address] * Differential (08/13/2024 6:29 PM EDT) [facility] WBC 5.75 K/uL 08/13/2024 8:57 PM EDT [facility] Neutrophil 48 % 08/13/2024 8:57 PM EDT [facility] Lymphocyte 41 % 08/13/2024 8:57 PM EDT [facility] Monocyte 9 % 08/13/2024 8:57 PM EDT [facility] Eosinophil 1 % 08/13/2024 8:57 PM EDT [facility] Basophil 1 % 08/13/2024 8:57 PM EDT [facility] Absolute Neutrophil Count 2.76 1.50 - 7.70 K/uL 08/13/2024 8:57 PM EDT [facility] Absolute Lymphocyte Count 2.36 1.20 - 3.50 K/uL 08/13/2024 8:57 PM EDT [facility] Absolute Monocyte Count 0.52 0.00 - 1.00 K/uL 08/13/2024 8:57 PM EDT [facility] Absolute Eosinophil Count 0.06 0.00 - 0.40 K/uL 08/13/2024 8:57 PM EDT [facility] Absolute Basophil Count 0.06 0.00 - 0.20 K/uL 08/13/2024 8:57 PM EDT [facility] Blood PERIPHERAL BLOOD SPECIMEN / Unknown Venipuncture / Unknown 08/13/2024 6:29 PM EDT 08/13/2024 6:40 PM EDT Charlie Matias MD LAB BLOOD ORDERABLES Final R esult Performing Organization Address City/[facility]/ZIP Co de Phone Number [address] [address] * Magnesium (08/13/2024 6:29 PM EDT) Magnesium, Blood 2.0 1.6 - 2.6 mg/dL [address] 08/13/2024 6:58 PM EDT [facility] Blood PERIPHERAL BLOOD SPECIMEN / Unknown Venipuncture / Unknown 08/13/2024 6:29 PM EDT 08/13/2024 6:30 PM EDT Charlie Matias MD LAB BLOOD ORDERABLES Final R esult [address] [address] * (ABNORMAL) Comprehensive Metabolic Panel (08/13/2024 6:29 PM EDT) Sodium 137 135 - 146 mmol/L [address] 08/13/2024 6:48 PM EDT [facility] Potassium 4.2 3.4 - 5.2 mmol/L [address] 08/13/2024 6:48 PM EDT [facility] Comment:Plasma sample Chloride 108 98 - 110 mmol/L [address] 08/13/2024 6:48 PM EDT [facility] Total CO2/Bicarbonate 22(L) 24 - 32 mmol/L [address] 08/13/2024 6:48 PM [facility] Anion Gap 7 2 - 15 mmol/L [address] 08/13/2024 6:48 PM [facility] BUN 17 7 - 24 mg/dL [address] 08/13/2024 6:48 PM [facility] Creatinine, Blood 0.75 0.50 - 1.30 mg/dL [address] 08/13/2024 6:48 PM [facility] Glucose, Blood 97 70 - 118 mg/dL [address] 08/13/2024 6:48 PM [facility] Calcium 9.2 8.5 - 10.5 mg/dL [address] 08/13/2024 6:48 PM [facility] Total Protein 7.1 6.2 - 8.2 g/dL [address] 08/13/2024 6:48 PM [facility] Albumin, Blood 3.7 3.4 - 5.2 g/dL [address] 08/13/2024 6:48 PM [facility] Globulin Result 3.4 2.0 - 4.0 g/dL [address] 08/13/2024 6:48 PM [facility] AST (SGOT) 13 11 - 40 U/L [address] 08/13/2024 6:48 PM [facility] ALT (SGPT) 6(L) 7 - 40 U/L [address] 08/13/2024 6:48 PM [facility] Alkaline Phosphatase 82 30 - 115 U/L [address] 08/13/2024 6:48 PM [facility] Total Bilirubin <0.3 0.0 - 1.2 mg/dL [address] 08/13/2024 6:48 PM [facility] Estimated GFR(CKD-EPI) 108 >=60 mL/min/BS A [address] 08/13/2024 6:48 PM [facility] Comment:This Cr-based equati on underestimates GFR in patients with increased muscle mass. Order CYSTATIN C WITH GFR ESTIMATE, [id number], if additional evaluation of renal function is needed. Blood PERIPHERAL BLOOD SPECIMEN / Unknown Venipuncture / Unknown 08/13/2024 6:29 PM EDT 08/13/2024 6:30 PM EDT us Charlie Matias MD LAB BLOOD ORDERABLES Final R esult [facility] [address] [place] [id number] * (ABNORMAL) Lipid Panel (10/15/2020 6:17 AM EDT) [facility] Cholesterol 120(L) 125 - 200 mg/dL 10/15/2020 8:10 AM EDT [facility] Triglycerides 170(H) 55 - 150 mg/dL 10/15/2020 8:10 AM EDT [facility] Comment:Use non-HDL choleste rol or Apolipoprotein B to monitor cardiovascular risk and cholesterol-lowering therapy. HDL Cholesterol 29(L) 40 - 65 mg/dL 10/15/2020 8:10 AM EDT [facility] LDL Cholesterol 57 <130 mg/dL 10/15/2020 8:10 AM EDT [facility] Non-HDL Cholesterol 91 <190 mg/dL 10/15/2020 8:10 AM EDT [facility] Comment: Normal primary prevention <190 mg/dL High risk primary prevention <160 mg/dL Secondary prevention <130 mg/dL High risk secondary prevention <100 mg/dL VLDL Cholesterol 34 8 - 71 mg/dL 10/15/2020 8:10 AM EDT [facility] Ratio Chol/HDL 4.1 2.0 - 5.0 10/15/2020 8:10 AM EDT [facility] Patient Fasting 8:10 AM EDT [facility] Blood Venipuncture / Unknown 10/15/2020 6:17 AM EDT 10/15/2020 7:04 AM EDT us Khurram Nunez MD LAB BLOOD ORDERABLES Final Res ult [facility] [address] [place] [address] * Hemoglobin A1C (02/20/2020 6:30 AM EST) Hemoglobin A1C 5.8 4.0 - 6.0 % CONVERSION FROM MEDIContinuity Control Estimated Average Glucose 120 mg/dL CONVERSION F ROM MEDITECH 02/20/2020 6:30 AM EST 02/20/2020 7:06 AM EST Larry Houston MD LAB BLOOD ORDERABLES Erica arroyo Result CONVERSION FROM [place] from Last 3 Months or Most Recently Relevant to Health Maintenance Insurance [address] [address] [address] SENIOR Member Subscriber Plan / Payer (Ef fective 2018-Present) Name:Charlie iRos Relation to Subscriber:Self Name:Charlie Rios Payer ID:[id number] (NAIC) Group ID:[id number] Type:Medicare / [employer] Care Address: CLAIMS [address] [facility] [place] [address] [place] [address] SENIOR Advance Directives * Full Code (Latest [...] 11:41 PM 03/16/2016 6:25 PM Care Teams Furnace Mechanic Relationship Specialty Start Date End Date [place] MD [address] [place] [id number] PCP - General 01/14/19 None, PcpMD 07/28/14
[2024-09-30 19:12] LABS: OBS Int Ctl Valid YES; OBS1 POSITIVE (NEGATIVE)
[2024-09-30 19:30] LABS: Troponin-I High Sensitivity < 2.7 ng/L (<3.5-35.0)
[2024-09-30] MEDS: iohexoL 350 MG/ML 100 ML INFUS..BTL IV (19:41)
[2024-09-30 19:51] VITALS: BP 111/61; PULSE 77; RESP 15
[2024-09-30] MEDS: Pantoprazole Sodium 40 MG/10 ML VIAL IVPUSH (19:51)
[2024-09-30] MEDS: 0.9 % Sodium Chloride 1,000 ML 999 ML IV (21:06)
[2024-09-30 21:15] VITALS: BP 135/79; PULSE 88; RESP 18; TEMP 36.8; O2SAT 95
[2024-09-30 22:19] LABS: Appearance Urine Clear; Color Urine Yellow; Glucose Urine UA 100 mg/dL (Negative); Leukocyte Esterase Urine Negative (Negative); Nitrite Urine Negative (Negative); Specific Gravity - Urine >= 1.030 (1.005-1.025); Urine Blood Negative (Negative); Urine Ketones 15 mg/dL (Negative); Urine Protein Negative (Neg-Trace)
[2024-09-30 22:49] VITALS: BP 112/59; PULSE 84; RESP 17; TEMP 36.5; O2SAT 95
--- NOTE | 2024-10-01 00:19 | PC.NURSE ---
nurse to nurse report called over to [place] where pt resides, spoke with Adelaine RN.
[2024-10-01 01:51] VITALS: BP 132/76; PULSE 78; RESP 16; TEMP 36.7; O2SAT 95
[2024-10-01 01:54] VITALS: BP 132/76; PULSE 78; RESP 16; TEMP 36.7; O2SAT 95
== END 2024-10-01 01:56 ==
PROVIDERS: Physician Assistant; Emergency Provider Emergency Medicine
DX: R19.5 Other fecal abnormalities (principal); K52.9 Noninfective gastroenteritis and colitis, unspecified; E11.9 Type 2 diabetes mellitus without complications; E78.5 Hyperlipidemia, unspecified; E03.9 Hypothyroidism, unspecified; Z86.711 Personal history of pulmonary embolism; Z79.01 Long term (current) use of anticoagulants; Z79.02 Long term (current) use of antithrombotics/antiplatelets; Z79.899 Other long term (current) drug therapy
CPT/HCPCS: 36415; 74177; 80053; 81003; 82272; 83690; 84484; 85025; 93005; 96361; 96374; 96375; 96376; 99285; J2270; J2405; J2470; Q9967

== ENCOUNTER → 2024-09-30 18:43 | Outpatient (BNV) | payer OTHER, SELFPAY | PROVIDERS: Emergency Provider Emergency Medicine; Visit Provider Internal Medicine | DX: R10.10 Upper abdominal pain, unspecified (principal) | CPT/HCPCS: 93010 ==

== ENCOUNTER → 2024-09-30 19:14 | Outpatient (BNV) | payer OTHER, SELFPAY | PROVIDERS: Emergency Provider Emergency Medicine; Visit Provider Radiology Diagnostic Radiology | DX: R10.10 Upper abdominal pain, unspecified (principal) | CPT/HCPCS: 74177 ==

== ENCOUNTER 2024-10-03 17:23 | Emergency (ER) | payer OTHER, SELFPAY ==
--- NOTE | ~2024-10-03 | XR_ITS ---
CLINICAL HISTORY: L sided chest pain, sob Chest Radiographs, 2 views Comparison: None available Findings: No cardiomegaly. Normal mediastinal contours. No pneumothorax. No opacity. No pleural effusion. Normal upper abdomen. No acute fracture. Impression: No acute findings. This document has been electronically signed by: Susana Braun MD on 10/03/2024 18:00:46
--- NOTE | 2024-10-03 17:27 | ECG_ITS ---
Test Reason : CP Blood Pressure : */* mmHG Vent. Rate : 77 BPM Atrial Rate : 77 BPM P-R Int : 180 ms QRS Dur : 96 ms QT Int : 380 ms P-R-T Axes : 38 10 48 degrees QTcB Int : 430 ms Normal sinus rhythm with sinus arrhythmia Normal ECG When compared with ECG of 30-Sep-2024 18:54, No significant change was found Referred By: Generic ED Physician Electronically Signed By: NORM BOWERS
[2024-10-03 17:32] VITALS: BP 139/76; PULSE 80; RESP 18; TEMP 36.9; O2SAT 97; BMI 38.0
--- NOTE | 2024-10-03 17:32 | ED.CHESTPAIN ---
HPI - Chest Pain General Chief Complaint: Chest Pain Stated Complaint: cp vomiting nausea Time Seen by Provider: 10/03/24 18:11 Source: patient Limitations: no limitations History of Present Illness ED Provider: Ria Ma PA-C HPI narrative: 49 y/o M with hx of bipolar disorder, PTSD, history of PE maintained on Xarelto, autism spectrum disorder, hypothyroidism, hyperlipidemia, diabetes presents with CP ANIMATOR. Pain over left chest with radiation down left upper extremity and into the jaw. Denies new activity or heavy lifting that could have precipitated chest wall strain. He has no cough or cold symptoms or fever. Patient states he followed up with his supervisor of instruction following his emergency room visit on September 30. He reports there were no further recommendations at that time. Related Data Home Medications ?Medication ?Instructions ?Recorded ?Confirmed atorvastatin 40 mg tablet 40 mg PO BEDTIME 09/02/24 09/16/24 escitalopram oxalate 10 mg tablet 10 mg PO DAILY 09/02/24 09/16/24 fluticasone propionate 50 1 spray intranasal DAILY 09/02/24 09/16/24 mcg/actuation nasal spray,suspension lisinopril 10 mg tablet 10 mg PO DAILY 09/02/24 09/16/24 metoprolol tartrate 50 mg tablet 50 mg PO BID 09/02/24 09/16/24 perphenazine 8 mg tablet 8 mg PO BID 09/02/24 09/16/24 primidone 50 mg tablet 50 mg PO BEDTIME 09/02/24 09/16/24 quetiapine 400 mg tablet 400 mg PO BEDTIME 09/02/24 09/16/24 carbidopa 25 mg-levodopa 250 mg 1 tab PO TID 09/16/24 09/16/24 tablet rivaroxaban 20 mg tablet (Xarelto) 20 mg PO BEDTIME 09/16/24 09/16/24 Previous Rx's ?Medication ?Instructions ?Recorded cholecalciferol (vitamin D3) 10 10 mcg PO DAILY #30 tabs 06/02/24 mcg (400 unit) tablet (Vitamin D3) clopidogrel 75 mg tablet 75 mg PO DAILY #14 tabs 06/02/24 furosemide 20 mg tablet 20 mg PO DAILY #14 tabs 06/02/24 levothyroxine 25 mcg tablet 25 mcg PO DAILY@0600 #14 tabs 06/02/24 melatonin 3 mg tablet 3 mg PO BEDTIME #30 tabs 06/02/24 multivitamin (Daily-Marck tablet) 1 tab PO DAILY #30 tabs 06/02/24 pantoprazole 40 mg tablet,delayed 40 mg PO DAILY #14 tabs 06/02/24 release omeprazole 40 mg capsule,delayed 40 mg PO BID #28 caps 09/30/24 release Allergies Allergy/AdvReac Type Severity Reaction Status Date / Time acetaminophen (From TYLENOL) Allergy Severe ANAPHYLAXIS Verified 10/03/24 17:33 aspirin (ASA) Allergy Severe ANAPHYLAXIS Verified 10/03/24 17:33 nitroglycerin (NITROGLYCERIN) Allergy Severe ANAPHYLAXIS Verified 10/03/24 17:33 amoxicillin (AMOXICILLIN) Allergy Mild RASH Verified 10/03/24 17:33 fish derived (fish) Allergy Anaphylaxis Verified 10/03/24 17:33 ibuprofen Allergy Anaphylaxis Verified 10/03/24 17:33 Poultry Allergy Anaphylaxis Verified 10/03/24 17:33 [facility] Past Medical History Medical History (Updated 10/03/24 @ 18:44 by JUNIOR Hernandez) Suicidal ideation Chest pain Atypical chest pain Bipolar disorder Mood disorder PTSD (post-traumatic stress disorder) Depression History of pulmonary embolism BPH (benign prostatic hyperplasia) Diabetes Obesity Hypothyroid HLD (hyperlipidemia) CAD (coronary artery disease) Surgical History History of coronary artery stent placement Social History Social History Household Members: None Housing: Apartment Do you presently have visiting nurse or other home services: No Alcohol intake: never Patient Tobacco Use Status: Never used Tobacco Smoked in Last 30 Days: No e-Cigarette/Vaping Use: Never Used Second Hand Smoke Exposure: No Use of substances other than those prescribed or required for medical reasons: No Advance Directives: No Advance Directives Information Provided: Yes Do you have a plan to hurt others: No Plan service: No Current occupational status: unemployed Sexual orientation: Straight/Heterosexual Physical Exam Vital Signs: Vital Signs: Last Vital Signs Temp 98.3 F 10/03/24 18:14 Pulse 78 10/03/24 18:14 Resp 16 10/03/24 18:14 BP 137/79 10/03/24 18:14 Pulse Ox 97 10/03/24 18:14 O2 Del Method Room Air 10/03/24 18:14 BMI result Body Mass Index 38.0 Course Course Course Narrative: 10/03/24 1732 JUNIOR Ball This is a Rapid Medical Examination (RME) performed by Hdoan Jose PA-C in triage. Full HPI, ROS, assessment and treatment plan per primary provider in the Main ED. Hx: 49 yo M hx of bipolar disorder, PTSD, history of PE maintained on Xarelto, autism spectrum disorder, hypothyroidism, hyperlipidemia, diabetes here w/ L sided chest pain, constant x1.5 hours. pain radiates to L arm, L jaw and to back. assoc SOB. PE/vitals: well appearing. Plan: labs, cxr, ekg Medical Decision Making Medical Decision Making [facility] Narrative: 49 y/o M with hx of bipolar disorder, PTSD, history of PE maintained on Xarelto, autism spectrum disorder, hypothyroidism, hyperlipidemia, diabetes presents with CP ANIMATOR. Pain over left chest with radiation down left upper extremity and into the jaw. Denies new activity or heavy lifting that could have precipitated chest wall strain. He has no cough or cold symptoms or fever. Patient states he followed up with his supervisor of instruction following his emergency room visit on September 30. He reports there were no further recommendations at that time. Problem: Known coronary artery disease, autism spectrum History: Per patient I have considered the following differential diagnoses: ACS, chest wall strain, costochondritis, viral syndrome/pneumonia, malingering, SI, HI, decompensated psychiatric illness, drug/alcohol intoxication Plan: Patient is well known to the emergency department, he typically presents with chest pain, has a negative assessment, then states he is suicidal. He is also well known to the care team, and has numerous resources within the community that he does not utilize. He has been seen numerous times in the emergency room this year. In regard to his complain of chest pain, thus far has a assessment is negative. He has no cough cold symptoms to account for his discomfort, no mechanism of injury to support chest wall strain. I have independently reviewed the following tests: Labs: no electrolyte abnormality, troponin less than 2.7, EKG: Normal sinus rhythm rate of 77, no ischemic changes no ectopy QTC 430 Chest x-ray:indings: No cardiomegaly. Normal mediastinal contours. No pneumothorax. No opacity. No pleural effusion. Normal upper abdomen. No acute fracture. Impression: No acute findings. Lab Data 10/03/24 17:59 10/03/24 17:59 Labs: Lab Results 10/03/24 Range/Units 17:59 WBC 6.4 (4.8-10.8) X10*3/uL RBC 5.01 (4.60-5.80) X10*6/uL Hgb 14.4 (14.0-18.0) g/dl Hct 41.4 L (42.0-52.0) % MCV 82.6 (80.0-98.0) fL MCH 28.7 (27.0-33.0) pg MCHC 34.8 (31.0-36.0) g/dl RDW 19.7 H (11.0-16.0) % Plt Count 284 (160-400) X10*3/uL MPV 10.2 (9.4-12.4) fL Immature Gran % (Auto) 0.3 (0.0-0.4) % Neut % (Auto) 63.4 (45-73) % Lymph % (Auto) 24.3 (20-40) % Blanco % (Auto) 9.9 (2-11) % Eos % (Auto) 1.6 (0-4) % Baso % (Auto) 0.5 (0-2) % Lymph # (Auto) 1.6 (1.2-4.9) X10*3/uL Blanco # (Auto) 0.6 (0.1-1.2) X10*3/uL Eos # (Auto) 0.1 (0.0-0.4) X10*3/uL Baso # (Auto) 0.0 (0.0-0.2) X10*3/uL Abs Immat Gran (auto) 0.02 (0.00-0.03) X10*3/uL Absolute Neuts (auto) 4.0 (2.0-8.3) x10*3/uL Absolute Nucleated RBC 0.000 (0.0-0.012) X10*3/uL Nucleated RBC % (auto) 0.0 (0.0-0.2) /100WBC Sodium 137 (135-145) mmol/L Potassium 4.0 (3.3-5.1) mmol/L Chloride 109 H (96-108) mmol/L Carbon Dioxide 20 L (22-29) mmol/L Anion Gap 12 (12-20) BUN 15 (9-16) mg/dL Creatinine 0.73 (0.5-1.4) mg/dL Estim Creat Clear Calc 160.6 Estimated GFR > 60 Random Glucose 115 (60-115) mg/dL Calcium 8.7 (8.4-10.2) mg/dL Magnesium 2.0 (1.6-2.6) mg/dL Total Bilirubin 0.2 (0.0-1.0) mg/dL AST 21 (5-37) U/L ALT < 6 (0-40) U/L Alkaline Phosphatase 63 (39-117) U/L Troponin I High Sens < 2.7 (<3.5-35.0) ng/L Total Protein 7.3 (6.5-8.0) g/dL Albumin 4.3 (3.5-5.0) g/dL Lipase 74 (8-78) U/L Discharge Plan Discharge Clinical Impression: Atypical chest pain Patient Disposition: Home, Self-Care Instructions: Noncardiac Chest Pain (ED) Additional Instructions: All of your screening labs including a cardiac enzyme were normal. There were no concerning changes on the EKG and the chest x-ray is clear. You need to follow up with your supervisor of instruction, you have had multiple visits to the emergency department for chest pain with negative assessments, perhaps it is time for an outpatient stress test. Prescriptions: No Action carbidopa-levodopa 25-250 mg tablet 1 tab PO TID Xarelto 20 mg tablet 20 mg PO BEDTIME omeprazole 40 mg capsule,delayed release(DR/EC) 40 mg PO BID Qty: 28 0RF melatonin 3 mg Tablet 3 mg PO BEDTIME Qty: 30 0RF furosemide 20 mg Tablet 20 mg PO DAILY Qty: 14 0RF Protocol: Hold for SBP< HOLD for SBP < : 90 multivitamin [Daily-Marck] Tablet 1 tab PO DAILY Qty: 30 0RF cholecalciferol (vitamin D3) [Vitamin D3] 10 mcg (400 unit) Tablet 10 mcg PO DAILY Qty: 30 0RF clopidogrel 75 mg Tablet 75 mg PO DAILY Qty: 14 0RF levothyroxine 25 mcg Tablet 25 mcg PO DAILY@0600 Qty: 14 0RF pantoprazole 40 mg tablet,delayed release (DR/EC) 40 mg PO DAILY Qty: 14 0RF atorvastatin 40 mg tablet 40 mg PO BEDTIME primidone 50 mg tablet 50 mg PO BEDTIME lisinopril 10 mg tablet 10 mg PO DAILY metoprolol tartrate 50 mg tablet 50 mg PO BID perphenazine 8 mg tablet 8 mg PO BID fluticasone propionate 50 mcg/actuation spray,suspension 1 spray intranasal DAILY escitalopram oxalate 10 mg tablet 10 mg PO DAILY quetiapine 400 mg tablet 400 mg PO BEDTIME Print Language: Swedish
[2024-10-03 18:05] LABS: MANUAL DIFF FLAG NO
[2024-10-03 18:14] VITALS: BP 137/79; PULSE 78; RESP 16; TEMP 36.8; O2SAT 97
[2024-10-03 18:23] LABS: Alanine Aminotransferase < 6 U/L (0-40); Albumin Level 4.3 g/dL (3.5-5.0); Alkaline Phosphatase 63 U/L (39-117); Anion Gap 12 (12-20); Aspartate Amino Transferase 21 U/L (5-37); Bilirubin Total 0.2 mg/dL (0.0-1.0); Blood Urea Nitrogen 15 mg/dL (9-16); Calcium 8.7 mg/dL (8.4-10.2); Carbon Dioxide 20 mmol/L (22-29); Chloride 109 mmol/L (96-108); Creatinine Clr Calc Pharmacy 160.6; Estimated Glomerular Filt Rate > 60; Glucose Random 115 mg/dL (60-115); Lipase 74 U/L (8-78); Sodium 137 mmol/L (135-145); Total Protein 7.3 g/dL (6.5-8.0)
[2024-10-03 18:29] LABS: Troponin-I High Sensitivity < 2.7 ng/L (<3.5-35.0)
[2024-10-03 18:32] LABS: Basophils Percent Auto 0.5 % (0-2); Eosinophils Absolute Auto 0.1 X10*3/uL (0.0-0.4); Eosinophils Percent Auto 1.6 % (0-4); Hematocrit 41.4 % (42.0-52.0); Hemoglobin 14.4 g/dl (14.0-18.0); Imm Gran Abs Auto 0.02 X10*3/uL (0.00-0.03); Imm Gran Pct Auto 0.3 % (0.0-0.4); Lymphocytes Absolute Auto 1.6 X10*3/uL (1.2-4.9); Lymphocytes Percent Auto 24.3 % (20-40); Mean Corpuscular HGB Conc 34.8 g/dl (31.0-36.0); Mean Corpuscular Hemoglobin 28.7 pg (27.0-33.0); Mean Corpuscular Volume 82.6 fL (80.0-98.0); Mean Platelet Volume 10.2 fL (9.4-12.4); Monocytes Absolute Auto 0.6 X10*3/uL (0.1-1.2); Monocytes Percent Auto 9.9 % (2-11); Neutrophils Percent Auto 63.4 % (45-73); Platelet Count 284 X10*3/uL (160-400); Red Blood Count 5.01 X10*6/uL (4.60-5.80); Red Cell Distribution Width 19.7 % (11.0-16.0); White Blood Count 6.4 X10*3/uL (4.8-10.8)
--- NOTE | 2024-10-03 18:44 | PC.NURSE ---
Pt refused d/c paperwork and left before d/c paperwork was presented. IV removed and pt ambulated out of ER with steady gait.
[2024-10-03 18:46] VITALS: BP 137/79; PULSE 78; RESP 16; TEMP 36.8; O2SAT 97
== END 2024-10-03 18:48 | disposition home or self-care (01) ==
PROVIDERS: Physician Assistant Medical; Emergency Provider Emergency Medicine
DX: R07.89 Other chest pain (principal); E11.9 Type 2 diabetes mellitus without complications; E78.5 Hyperlipidemia, unspecified; E03.9 Hypothyroidism, unspecified; Z86.711 Personal history of pulmonary embolism; Z79.01 Long term (current) use of anticoagulants; Z79.02 Long term (current) use of antithrombotics/antiplatelets; Z79.899 Other long term (current) drug therapy
CPT/HCPCS: 36415; 71046; 80053; 83690; 83735; 84484; 85025; 93005; 99283; 99284

== ENCOUNTER → 2024-10-03 17:27 | Outpatient (BNV) | payer OTHER, SELFPAY | PROVIDERS: Emergency Provider Emergency Medicine; Visit Provider Internal Medicine | DX: R07.9 Chest pain, unspecified (principal) | CPT/HCPCS: 93010 ==

== ENCOUNTER → 2024-10-03 17:34 | Outpatient (BNV) | payer OTHER, SELFPAY | PROVIDERS: Emergency Provider Emergency Medicine; Visit Provider Radiology Diagnostic Radiology | DX: R07.89 Other chest pain (principal) | CPT/HCPCS: 71046 ==

== ENCOUNTER 2025-02-09 15:39 | Outpatient (BNV) | payer OTHER, SELFPAY | END 2025-02-11 18:44 | PROVIDERS: Admitting Provider Psychiatry & Neurology Psychiatry; Responsible Provider Registered Nurse; Visit Provider Internal Medicine Cardiovascular Disease | DX: R94.31 Abnormal electrocardiogram [ECG] [EKG] (principal); R07.9 Chest pain, unspecified | CPT/HCPCS: 93010 ==

== ENCOUNTER 2025-02-09 15:39 | Inpatient (IN) | payer OTHER, SELFPAY ==
--- OUTSIDE RECORDS SUMMARY | 2010-09-16 13:00 | XMS_ITS | Continuity of Care Document ---
Author Organization [facility] Address [address] [place] [address] [address] [place] [address] Phone Care Team Providers Care Pen And Pencil Repairer Name Role Phone No Information Unavailable Unavailable Advance Directives Directive Yes / No Effective Date File Name No Information Encounters Encounter Description Practice Location Reason(s) For Visit Diagnoses Date Provider [facility], [address] [place], [place] [id number], [place], [place], [id number], [place] tel:[phone] [facility] No Information 2010 No Information Family History Family Member Type Diagnosis Age At Onset No Information Payers Payer name Insurance type Covered constitution party ID Authoriza tion(s) No Information Social History Type Description Quantity Date Captured Comments Sex Male Smoking Status No Information Chief Complaint And Reason For Visit No Information History Of Present Illness Encounter Date Complaint History Of Prese nt Illness No Information Instructions Date Instruction Additional Infor mation No Information Assessments Type Assessment Date No Information
--- OUTSIDE RECORDS SUMMARY | 2022-07-11 19:00 | XMS_ITS | Continuity of Care Document ---
Author Organization [facility] Address [address] [place] [address] Phone Care Team Providers Care Biological Photographer Name Role Phone Tommie Thakkar MD Unavailable Unavailable Procedures Procedure Date INITIAL HOSPITAL CARE L HRT ARTERY/VENTRICLE ANGIO SUBSEQUENT HOSPITAL CARE TTE W/DOPPLER COMPLETE SUBSEQUENT HOSPITAL CARE SUBSEQUENT HOSPITAL CARE SUBSEQUENT HOSPITAL CARE SUBSEQUENT HOSPITAL CARE SUBSEQUENT HOSPITAL CARE SUBSEQUENT HOSPITAL CARE SUBSEQUENT HOSPITAL CARE SUBSEQUENT HOSPITAL CARE Jul- SUBSEQUENT HOSPITAL CARE SUBSEQUENT HOSPITAL CARE HOSPITAL DISCHARGE DAY SUBSEQUENT HOSPITAL CARE INITIAL HOSPITAL CARE Jul- SUBSEQUENT HOSPITAL CARE Jul- SUBSEQUENT HOSPITAL CARE SUBSEQUENT HOSPITAL CARE SUBSEQUENT HOSPITAL CARE Advance Directives Directive Yes / No Effective Date File Name No Information Encounters Encounter Description Practice Location Reason(s) For Visit Diagnoses Date Provider Providers Copied on Encounter INITIAL HOSPITAL CARE [facility], [address], [place], [id number] , [place] tel:[phone] [facility] In Patient No Information Bijan Reilly. [address], [address], [place], [address], [place]. tel:[phone] Referring Provider: Sohail Bustillo, [address], [place], [address] . tel:[phone] SUBSEQUENT [facility], [address], [place], [place], [id number] , [place] tel: [phone] [facility] In Patient Unstable anginaOld myocardial infarctionChronic obstructive pulmonary disease, unspecifiedAcute on chronic systolic (congestive) heart failurePersonal history of other mental and behavioral disordersSuicidal ideationsCOVID-19 [address]. [address], [place], [place], [id number] , [place]. tel: SUBSEQUENT HOSPITAL [facility], [address], [place], [place], [id number] , [place] tel: [phone] [facility] In Patient Unstable anginaOld myocardial infarctionChronic obstructive pulmonary disease, unspecifiedAcute on chronic systolic (congestive) heart failurePersonal history of other mental and behavioral disordersSuicidal ideationsCOVID- 3 Bust[address]. [address], [place], [place], [id number] , [place]. tel:[phone] INITIAL HOSPITAL CARE [facility], [address], [place], [place], [id number] , [place] tel: [phone] [facility] In Patient Unstable anginaOld myocardial infarctionChronic obstructive pulmonary disease, unspecifiedPresence of cardiac and vascular implant and graft, unspecified [address]. [address], [place], [place], [id number] , [place]. tel:[phone] SUBSEQUENT [facility], [address], [place], [place], [id number] , [place] tel: [phone] [facility] In Patient Unstable anginaOld myocardial infarctionChronic obstructive pulmonary disease, unspecifiedAcute on chronic systolic (congestive) heart failurePersonal history of other mental and behavioral disordersSuicidal ideationsCOVID-19 [address], [place], [place], [id number] , [place]. tel:[phone] HOSPITAL DISCHARGE DAY [facility], [address], [place], [place], [id number] , [place] tel: [phone] [facility] In Patient Chronic obstructive pulmonary disease with (acute) exacerbationAcute on chronic combined systolic (congestive) and diastolic (congestive) heart failurePersonal history of other mental and behavioral disordersSuicidal ideations 3 Bustillo Sohail. [address] [place], [id number] , [place]. tel: [phone] SUBSEQUENT [facility], [address] [place], [id number] , [place] tel: [phone] [facility] In Patient Unstable anginaOld myocardial infarctionChronic obstructive pulmonary disease, unspecifiedCoronary angioplasty statusAcute on chronic combined systolic (congestive) and diastolic (congestive) heart failurePersonal history of other mental and behavioral disordersCOVID-19Suic idal ideations 3 Bustillo Sohail. [address] [place], [id number] , [place]. tel: SUBSEQUENT [facility], [address], [place], [place], [id number] , [place] tel: [phone] [facility] In Patient Unstable anginaOld myocardial infarctionChronic obstructive pulmonary disease, unspecifiedAcute on chronic systolic (congestive) heart failurePersonal history of other mental and behavioral disordersSuicidal ideationsCOVID-19 3 Bustillo Sohail. [address] [place], [id number] , [place]. tel: SUBSEQUENT [facility], [address], [place], [place], [id number] , [place] tel: [phone] [facility] In Patient Unstable anginaOld myocardial infarctionChronic obstructive pulmonary disease with (acute) exacerbationPersonal history of other mental and behavioral disordersAcute on chronic combined systolic (congestive) and diastolic (congestive) heart failureSuicidal ideations [address], [place], [place], [id number] , [place]. tel: [phone] SUBSEQUENT [facility], [address], [id number] , [place] tel: [phone] [facility] In Patient Unstable anginaOld myocardial infarctionChronic obstructive pulmonary disease, unspecifiedCoronary angioplasty statusAcute on chronic combined systolic (congestive) and diastolic (congestive) heart failure 3 Bustillo Sohail. [address] [place], [id number] , [place]. tel: SUBSEQUENT HOSPITAL [facility], [address] [place], [id number] , [place] tel: [phone] [facility] In Patient Unstable anginaOld myocardial infarctionChronic obstructive pulmonary disease with (acute) exacerbationPersonal history of other mental and behavioral disordersAcute on chronic combined systolic (congestive) and diastolic (congestive) heart failureSuicidal ideations 3 Bustillo Sohail. [address] [place], [id number] , [place]. tel: SUBSEQUENT [facility], [address] [place], [id number] , [place] tel: [phone] [facility] In Patient Unstable anginaOld myocardial infarctionChronic obstructive pulmonary disease, unspecifiedAcute on chronic systolic (congestive) heart failurePersonal history of other mental and behavioral disordersSuicidal ideationsCOVID-19 3 Bustillo Sohail. [address] [place], [id number] , [place]. tel: SUBSEQUENT [facility], [address] [place], [id number] , [place] tel: [phone] [facility] In Patient Unstable anginaOld myocardial infarctionChronic obstructive pulmonary disease, unspecifiedAcute on chronic systolic (congestive) heart failurePersonal history of other mental and behavioral disordersSuicidal ideationsCOVID- 3 Bustillo Sohail. [address] [place], [id number] , [place]. tel: SUBSEQUENT [facility], [address] [place], [id number] , [place] tel: [phone] [facility] In Patient Unstable anginaOld myocardial infarctionChronic obstructive pulmonary disease, unspecifiedCoronary angioplasty statusAcute on chronic combined systolic (congestive) and diastolic (congestive) heart failurePersonal history of other mental and behavioral disordersCOVID-19 3 Bustillo Sohail. [address] [place], [place], [id number] , [place]. tel: [phone] SUBSEQUENT HOSPITAL CARE [facility], [address] [place], [id number] , [place] tel: [phone] [facility] In Patient Chronic obstructive pulmonary disease with (acute) exacerbationAcute on chronic combined systolic (congestive) and diastolic (congestive) heart failurePersonal history of other mental and behavioral disordersSuicidal ideations 3 Bustillo Sohail. [address] [place], [id number] , [place]. tel: [phone] SUBSEQUENT HOSPITAL CARE [facility], [address] [place], [place], [id number] , [place] tel: [phone] [facility] In Patient Unstable anginaOld myocardial infarctionChronic obstructive pulmonary disease, unspecifiedAcute on chronic systolic (congestive) heart failurePersonal history of other mental and behavioral disordersSuicidal ideationsCOVID- 3 Bustillo Sohail. [address] [place], [place], [id number] , [place]. tel: [phone] SUBSEQUENT HOSPITAL CARE [facility], [address] [place], [id number] , [place] tel: [phone] [facility] In Patient Unstable anginaOld myocardial infarctionChronic obstructive pulmonary disease, unspecifiedAcute on chronic systolic (congestive) heart failurePersonal history of other mental and behavioral disordersSuicidal ideationsCOVID- 3 Bustillo Sohail. [address], [place], [id number] , [place]. tel: [phone] Family History Family Member Type Diagnosis Age At Onset No Information Payers Payer name Insurance type Covered republican ID Gayathri pruitt(s) [facility] [id number] [facility] [employer] IPA [id number] Social History Type Description Quantity Date Captured Comments Sex Male Smoking Status No Information Chief Complaint And Reason For Visit No Information Reason For Referral Reason For Referral No Information History Of Present Illness Encounter Date Complaint History Of Prese nt Illness No Information Functional Status Date Functional Assessmen t No Information Instructions Date Instruction Additional Infor mation No Information Assessments Type Assessment Date No Information Patient Care Teams Name Effective Dates (start - stop) Status Members No Information
--- NOTE | 2025-02-09 | ECG_ITS ---
Test Reason : L side chest pain 01/16. Hx of Cardiac disease Blood Pressure : */* mmHG Vent. Rate : 94 BPM Atrial Rate : 94 BPM P-R Int : 178 ms QRS Dur : 96 ms QT Int : 350 ms P-R-T Axes : 49 45 59 degrees QTcB Int : 437 ms Poor data quality, interpretation may be adversely affected Normal sinus rhythm Normal ECG No previous ECGs available Referred By: Carlee Paul Electronically Signed By: Xander Pavon
[2025-02-09 15:50] VITALS: BP 128/64; PULSE 94; RESP 18; TEMP 36.6; O2SAT 94
--- OUTSIDE RECORDS SUMMARY | 2025-02-09 16:50 | XMS_ITS | Clinical Summary ---
Author Organization [facility] Address [address] [place] [address] Care Team Providers Care Physical Therapy Coordinator Name Role Phone Unavailable Primary Care Provider [...] 1 (one) time each day Active Tiotropium Theresa Monohydrate (SPIRIVA HANDIHALER) 18 MCG per inhalation [...] Diagnosed Date Coronary artery disease invo lving viejas coronary artery of viejas heart with angina pectoris 05/15/2019 Overview (05/15/2019): Coronary artery disease with prior [place], PCI/stenting of RCA in 2008, in-stent restenosis and PCI/stenting in 2017. Heart [facility] 11/30/2018: LM: No stenosis LAD: Large vessel with diminuitive diagonal. Ramus intermedius: Bifurcating vessel. LCX: Moderate OM2 with moderate lPLB RCA: Dominant vessel . Eccentric 40% stenosis at the distal edge of prior RCA stents in the mid vessel. No thrombus. VAISHNAVI 3 flow. Moderate PDA. LVEDP: 19mmHG without AV gradient Impression: No flow limiting CAD with patent [...] 1 disorder 01/21/2019 Hyperlipidemia 01/21/2019 History of [place] (myocardial infarction) 01/21/2019 Overview (02/14/2019): Prior stents x2 in the RCA, one bare-metal, 1 SAMANTA; denies nasal congestion or sore throat heart catheterization June 2018 Schizoaffective disorder, bipolar type 9 Tobacco dependence 01/21/2019 Resolved Problems Problem Noted Date Diagnosed Date Resolved Date Hypertension 01/21/2019 05/15/2019 Encounters Date Type Department Care Team Description 01/10/2025 Consult (Initial) NON [facility] [address] [place] [address] Valentino Darling MD from Last 3 Months Immunizations Immunization Administration Dates Next Due COVID-19, mRNA (Moderna [...] 04/14/2019 8:50 AM EST right Temperature 36.6 C (97.8 F) 03/03/2019 2:34 PM EST Respiratory Rate - - Oxygen Saturation 95% [...] of 3 - 19+ 3-dose series) 08/01/1995 LDL Cholesterol 08/12/2021 08/12/2020, 05/0 09/2020, 02/05/2020, Additional history exists GFR 05/29/2022 05/29/2021, 05/10, 05/25/2021, Additional history exists COVID-19 Vaccine (2024- season) 2024 08/11/2020, 06/07/2020 Influenza (#1) 2024 03/05/2021, 12/09, 12/12/2018, Additional history exists Zoster (Shingrix) (1 of 2) 2026 Pneumococcal Aged Out 09/01/2013 No longer eligi ble based on patient's age to complete this topic Hepatitis C Screening Completed 01/20/2021, 03/18/2 020 HPV Vaccine (No Doses Required) Completed Hep A Aged Out No longer eligi [...] often more reliable than measurements at the doctor s office. You can also improve your [...] at . Any insurance accepted. Quit smoking resources-http://makesmoHardscore Games.org HEMOGLOBIN A1C % < 7 Result Component [...] 120 is ideal. Procedures * Due to [place] law, this organization might not be sharing negative HIV tests. Procedure Name Priority Date/Time Associated Diagnosis Comments BASIC METABOLIC PANEL Routine 05/25/2021 4:37 PM EST CARDIAC RISK/LIPID PROFILE I Routine 02/05/2020 9:30 AM EDT from Last 3 Months or Most Recently Relevant to Health Maintenance Results * Due to [place] law, this organization might not be sharing negative HIV tests. * (ABNORMAL) BASIC METABOLIC PANEL (05/25/2021 4:37 PM EST) Glucose 187(H) 65 - 99 mg/dL [facility] BUN 12 5 - 26 mg/dL [facility] CREATININE 0.66 0.5 - 1.5 mg/dL [facility] BUN/Creatinine Ratio 18 8 - 27 [facility] GLOM FILT RATE, EST 117.6 >59 mL/min [facility] IF -RADHA N 136.3 >59 mL/min [facility] SODIUM 139 134 - 144 mEq/L [facility] POTASSIUM 4.2 3.6 - 5.6 mEq/L [facility] CHLORIDE 105 96 - 109 mEq/L [facility] CARBON DIOXIDE 21 20 - 32 mEq/L [facility] ANION GAP 13.0 8 - 15 [facility] CALCIUM 8.9 8.3 - 10.0 mg/dL [facility] COMMENT [facility] Comment: Specimen is slightly hemolyzed. The following tests may be affected: K+, AST, LDH, DBili, and UIBC. 05/25/2021 4:37 PM EST 05/25/2021 4:37 PM EST Emergency Rm Provider [facility] Final Result [facility] [address] [place] [address] * (ABNORMAL) CARDIAC RISK/LIPID PROFILE I (02/05/2020 9:30 AM EDT) CHOLESTEROL, TOTAL 112 100 - 199 mg/dL [facility] TRIGLYCERIDES 167(H) 0 - 149 mg/dL [facility] HDL-CHOLESTEROL 34(L) 40 - 59 mg/dL [facility] LDL-CHOLESTEROL 45 0 - 99 mg/dL [facility] CHOL/HDL RATIO 3.29 0.0 - 5.0 [facility] CHD RELATIVE RISK RATIO 0.5 Avg Risk = 1.0 x Avg [facility] LDL/HDL RATIO 1.3 0.0 - 3.6 [facility] Comment: RISK MEN RATIO WOMEN RATIO ==== ==== ==== 1/2 AVERAGE 1.00 1.50 AVERAGE 3.60 3.20 2X AVERAGE 6.30 5.00 3X AVERAGE 8.00 6.10 CHD RELATIVE RISK RATIO 0.6 Avg Risk = 1.0 x Avg [facility] 02/05/2020 9:30 AM EDT 02/05/2020 9:30 AM EDT [facility] Final Result [facility] [address] [place] [address] from Last 3 Months or Most Recently Relevant to Health Maintenance Insurance [facility] FFS ONE CARE Member Subscriber Plan / Payer (Ef fective 2022-Present) Name:Charlie Rios Relation to Subscriber:Self Name:Charlie Rios Payer ID:[id number] ([facility]) Group ID:Not on file Type:HMO Address: [facility] [address] [facility]
--- OUTSIDE RECORDS SUMMARY | 2025-02-09 16:50 | XMS_ITS | Encounter Summary ---
Author Organization [facility] Address [address] [place] [address] Care Team Providers Care Anvilsmith Name Role Phone South Khanna MD Primary Care Provider [phone] Reason for Visit * Reason Comments Hospital F/U Encounter Details Date Type Department Care Team ([facility] st Contact Info) Description 01/31/2019 Telephone [facility] Primary Care Internal Medicine [address] [place] [address] [address] [place] [address] South Khanna MD [facility] [address] [place] [id number] Hospital F/U Social History Tobacco Use Types [...] AM EDT Please get ER Notes from [facility] for PCP to advise on hospital f/u [...] at . Any insurance accepted. Quit smoking resources-http://makesmoOUTSIDE THE [employer]OX MARK[employer].org HEMOGLOBIN A1C % < 7 Result Component 5.8(02/05/20 9:30 AM EDT) Rossi Barrera Note: Above is your goal for sugar [...] documented as of this encounter Care Teams Anvilsmith Relationship Specialty Start Date End Date South Khanna MD PCP - General Internal Medicine 12/18/18 10/02/19 documented as of this encounter
--- OUTSIDE RECORDS SUMMARY | 2025-02-09 16:50 | XMS_ITS | Clinical Summary ---
Author Organization [facility] Address [address] [place] [address] [address] Care Team Providers Care Search Specialist Name Role Phone Poc, Non Atrius Pcp [...] UPDATE W EDIT MODIFIERS 2021 COVID-19 Vaccine ( - season) 2024 08/11/2020 FLU SEASONAL (#1) 12/08/2024 01/11/2018, 12/08/2016, 02/19/2016, Additional history exists * A1C TEST - Q1Y PREDIABETES 08/01/2025 08/01/2024, 06/17/2023, 06/10/2023, Additional history exists HAEMOPHILUS INFLUENZA VACCINE Aged [...] patient's age to complete this topic Insurance [facility] [employer] Care Teams Search Specialist Relationship Specialty Start Date End Date Poc, Non Atrius Pcp Or PCP - General 09/03/14
--- OUTSIDE RECORDS SUMMARY | 2025-02-09 16:50 | XMS_ITS | Clinical Summary ---
Author Organization [facility] Address [address] [place] [address] Care Team Providers Care Electromechanical Assembly Technician Name Role Phone None, Pcp Unavailable Unavailable Trish Beckett MD Primary Care Provider Allergies Active Allergy [...] 08/01/1995 Medicare Initial AWV [id number] 11/07/2000 Pneumococcal Vaccine (2 of 2 - PCV) 02/18/2017 02/19/2016, 09/01/2013, 02/15/2011 PSA 06/28/2019 06/27/2017 Prostate Cancer Screening 06/28/2019 CT Colonography 2021 Colonoscopy 2021 Colorectal Cancer Screening 2021 FIT 2021 FOBT 2021 Multitarget Stool DNA (Cologuard) 2021 Sigmoidoscopy 2021 Hemoglobin A1c 10/02/2024 04/03/2024, 03/09, 03/09/2024, Additional history exists COVID-19 Vaccine ( season) 2024 Influenza Vaccine (#1) 2024 , 01/02/2020, 12/12/2018, Additional history exists Lipid [...] Routine 10/15/2020 6:17 AM EDT HEMOGLOBIN A1C Add-On 03/06/2020 8:35 PM EST Chest pain, unspecified from Last 3 Months or Most Recently Relevant to Health Maintenance Results * (ABNORMAL) Lipid Panel (10/15/2020 6:17 AM EDT) Cholesterol 120(L) 125 - 200 mg/dL 10/15/2020 8:10 AM EDT [facility] Triglycerides 170(H) 55 - 150 mg/dL 10/15/2020 8:10 AM EDT [facility] Comment:Use non-HDL choleste rol or Apolipoprotein B to monitor cardiovascular risk and cholesterol-lowering therapy. HDL Cholesterol 29(L) 40 - 65 mg/dL 10/15/2020 8:10 AM EDT [facility] LDL Cholesterol 57 <130 mg/dL 10/15/2020 8:10 AM EDT [facility] Non-HDL Cholesterol 91 <190 mg/dL 10/15/2020 8:10 AM EDT [facility] Comment: Normal primary prevention <190 mg/dL High risk primary prevention <160 mg/dL Secondary prevention <130 mg/dL High risk secondary prevention <100 mg/dL VLDL Cholesterol 34 8 - 71 mg/dL 10/15/2020 8:10 AM EDT [facility] Ratio Chol/HDL 4.1 2.0 - 5.0 10/15/2020 8:10 AM EDT [facility] Patient Fasting 8:10 AM EDT [facility] Blood Venipuncture / Unknown 10/15/2020 6:17 AM EDT 10/15/2020 7:04 AM EDT us Khurram Nunez MD LAB BLOOD ORDERABLES Final Res ult [facility] [address] [place] [address] * (ABNORMAL) Hemoglobin A1C (03/06/2020 8:35 PM EST) Hemoglobin A1C 6.6(H) 4.1 - 5.7 % 03/08/2020 5:30 PM EST [facility] Comment: Hemoglobin variant present. Recommend hemoglobin electrophoresis. Prediabetic range: 5.7 - 6.4% Diabetic range: > or = 6.5% Blood BLOOD / Unknown 03/06/2020 8 :35 PM EST 03/06/2020 8:51 PM EST us Roc Edwards MD LAB BLOOD ORDERABLES Final R esult CONVERSION FROM [facility] [address] [place] [address] from Last 3 Months or Most Recently Relevant to Health Maintenance Insurance [facility] SENIOR JUNIOR [id number] [facility] SENIOR [facility] SENIOR SENIOR Advance Directives * Full Code (Latest [...] 11:41 PM 03/16/2016 6:25 PM Care Teams Electromechanical Assembly Technician Relationship Specialty Start Date End Date Trish Beckett MD PCP - General 03/06/20 None, PcpMD 07/28/14
--- OUTSIDE RECORDS SUMMARY | 2025-02-09 16:50 | XMS_ITS | Encounter Summary ---
Author Organization [facility] Address [address] [place] [address] Care Team Providers Care Door Operator Name Role Phone South Khanna MD Primary Care Provider [phone] Encounter Details Date Type Department Care Team (Late st Contact Info) Description 04/21/2019 Abstract [facility] [place] [address] South Khanna MD [facility] [address] [place] [id number] Social History Tobacco Use Types Packs/Day Years [...] at . Any insurance accepted. Quit smoking resources-http://[employer].org HEMOGLOBIN A1C % < 7 Result Component [...] of this encounter Procedures * Due to [place] state law, this organization might not be sharing negative HIV tests. Procedure Name Priority Date/Time Associated Diagnosis Comments HEMOGLOBIN A1C Routine 03/26/2019 LIPID PANEL WITH REFLEX TO DIRECT LDL Routine 03/26/2019 documented in this encounter Results * Due to [place] state law, this organization might not be [...] documented as of this encounter Care Teams Door Operator Relationship Specialty Start Date End Date South Khanna MD PCP - General Internal Medicine 12/18/18 10/02/19 documented as of this encounter
--- OUTSIDE RECORDS SUMMARY | 2025-02-09 16:50 | XMS_ITS | Encounter Summary ---
Author Organization Lizzeth Esdras Livier [facility] Address [address] [place] [address] Care Team Providers Care Record Librarian Name Role Phone None, Pcp Primary Care Provider Unavailabl e None, Pcp Unavailable Unavailable South Khanna MD Primary Care Provider [phone] Trish Beckett MD Primary Care Provider [phone] Encounter Details Date Type Department Care Team (Late st Contact Info) Description 02/27/2014 Clinical Conversion Encounter GENERAL CONVERSION Eugenio Durán MD [address] [place] [address] Social History Tobacco Use Types Packs/Day Years Used Date Smoking Tobacco: Never Assessed Sex and Gender Information Value Date Recorded Sex Assigned at Male 01/14/2019 2:03 PM EDT Legal Sex Male 3:08 PM EDT Gender Identity Male 01/14/2019 2:03 PM EDT Sexual Orientation Not on file documented as of this encounter Consult Notes * Eugenio Durán MD - 10/10/2014 3:59 PM EDT [facility] Name: CHARLIE HAYWOOD [facility] R # [id number] [facility] : [birth year] Age: 38 Sex: M DIS Shahla CONSULTATION REPORT Location: Room: [facility] Admit Date: 02/26/14 - 02/27/14 cc: Skye [...] contact his outside treaters, specifically has Department Mental Health residential case manager and outpatient therapist and prescriber. [...] speak with his Department of Mental Health residential case manager, Toney, I believe it is Sher, at phone number [phone]. However, neither his therapist nor his prescriber were available today. The following history is based then upon the information from his residential case manager as well as review of the record and the interview: The patient has a long history of malingering and this was his diagnosis after a 2010 hospitalization at [facility]. According to his residential case manager, the patient has been going from hospital to hospital claiming chest pain and subsequently suicidal thinking when he is faced with hospital discharge. This week, he had an outpatient consultation with a color specialist at [facility]. According to the [facility] residential case manager the color specialist felt he was stable. On Sunday of this week, however, which will be 2 days ago or possibly the day before that which would be 3 days ago, he complained of chest pain, was brought by ambulance to [facility], was worked up there for chest pain which was negative (the [facility] residential case manager also tells me that the patient has had at least 2 negative cardiac catheterizations in the past 2 months). At any rate, the patient was transferred to [facility] per protocol at [facility], which is where a stent was placed in 1 coronary artery. In the past, he was again assessed to be stable from a cardiac point of view. He then talked about suicidal thoughts, but was discharged. It appears that fairly immediately after his discharge from [facility] he again complained of chest pain while on a train, was taken to this hospital and his workup here so far has been negative and again talked about suicidal thoughts. PAST PSYCHIATRIC HISTORY: Notable in that when he was assessed on admission at [facility] in October of 2010, he talked about having had depression for 5 years and several suicide attempts by cutting, although there were no scars or other evidence of his having cut in the past. He also talked about auditory and visual hallucinations at that time. He stayed at [facility] for 6 days. He reported command auditory hallucinations to kill himself and visual hallucinations of shadowy figures but he had an incongruently bright affect. His [facility] residential case manager at that time, who I believe was a different residential case manager than his current one, reported that the patient had a history of malingering. [facility] Name: CHARLIE HAYWOOD [facility] MR # [id number] CONSULTATION continued Admit Date: 02/26/14 He also [...] he was homeless. According to his current [facility] residential case manager, he had been homeless until about 2 months ago when he was placed in an apartment in the [place], [place] where he had formerly lived. The [...] denied by the patient; however, they his [facility] residential case manager tells me that the patient [...] full. When we talked about the recent [employer] game, he did so with some shahla. [...] diagnosed during a 6 day admission to [facility] in 2010, that diagnosis was confirmed by his current residential case manager. He has also been engaging in behavior and reported symptoms virtually identical to the current symptoms of complaints of chest pain and suicidal thoughts, during recent weeks has had repeatedly negative workups for chest pain and he does not show symptoms of major depression or true suicidal intent. My impression therefore is that diagnosis is malingering and his [facility] residential case manager has been coordinating his care. I do not think that there is any gain [facility] Name: CHARLIE HAYWOOD [facility] MR # [id number] CONSULTATION continued Admit Date: 02/26/14 to be achieved by psychiatric hospitalization. He should be discharged when he is medically stable. Dictated by: Eugenio Durán M.D. ELECTRONICALLY SIGNED 03/13/14 1447 T: [id number] //ivnm// //add1// //add3// //add2// [id number] documented in this encounter Plan of Treatment Not on file documented as of this encounter Visit Diagnoses Not on filedocumented in this encounter Care Teams Record Librarian Relationship Specialty Start Date End Date None, MD Baldemar PCP - General 07/28/14 01/13/19 South Khanna MD [address] [place] [id number] PCP - General 01/14/19 03/05/20 Trish Beckett MD [address] [place] [id number] PCP - General 03/06/20 None, MD Baldemar 07/28/14 documented as of this encounter
--- OUTSIDE RECORDS SUMMARY | 2025-02-09 16:50 | XMS_ITS | Encounter Summary ---
Author Organization Lizzeth Esdras [facility] Address [address] [place] [address] Care Team Providers Care Desk Operator Name Role Phone None, Pcp Primary Care Provider Unavailabl e None, Pcp Unavailable Unavailable South Khanna MD Primary Care Provider [phone] Trish Beckett MD Primary Care Provider [phone] Encounter Details Date Type Department Care Team (Late st Contact Info) Description 02/27/2014 Clinical Conversion Encounter GENERAL CONVERSION Jai Tejeda MD [address] [place] [id number] Social History Tobacco Use Types Packs/Day Years Used Date Smoking Tobacco: Never Assessed Sex and Gender Information Value Date Recorded Sex Assigned at Male 01/14/2019 2:03 PM EDT Legal Sex Male 3:08 PM EDT Gender Identity Male 01/14/2019 2:03 PM EDT Sexual Orientation Not on file documented as of this encounter Discharge Summaries * Jai Tejeda MD - 10/10/2014 3:59 PM EDT [facility] Name: CHARLIE HAYWOOD [facility] R # [id number] [facility] : [birth year] Age: 38 Sex: M DIS Shahla DISCHARGE SUMMARY Location: Room: [facility] Admit Date: 02/26/14 Disch Date: 02/27/14 cc: [...] of last known catheterization as per patient's roving hand, Dr. Reilly at phone number [phone]. Nonobstructive coronary artery disease as per [facility]; last catheterization this year: 6. History of a total of 9 lifetime cardiac catheterization reported as per the roving hand so far. 7. History of type 2 diabetes on oral medications only. No insulin as per the PCP reports. Contrary to what the patient says, he takes insulin. SECONDARY DIAGNOSES: Hypertension; asthma; depression; anxiety; obstructive sleep apnea, on CPAP with a pressure of 12 mmHg. History of bypass surgery. Reported history of suicidal attempts, treated at [facility] in 2010. DISCHARGE MEDICATIONS: Same as prior [...] Jaja De La Rosa, at phone number [phone], and also spoke with the patient's roving hand, Dr. Reilly from [facility] [employer] at office number [phone] and cell phone number [phone]. The patient was seen by the staff, complaining of chest pain, but he was completely at ease. He was reporting 10/10 pain contrary to his behavior. The patient when seen by me was chest pain-free. [facility] Name: CHARLIE HAYWOOD [facility] MR # [id number] [facility] D/C Date: 02/27/14 DISCHARGE SUMMARY continued Reportedly, this patient has had 3 catheterization in the last 2 months, the last one being at [facility] in December, reportedly as per the roving hand's information. It showed nonobstructive coronary artery disease. The patient was recently seen by Dr. Reilly just 2 days ago at his office. There was no new procedural intervention recommended. He has been on maximal medical therapy as per the roving hand. Unfortunately, the patient has had a history [...] Tejeda M.D. ELECTRONICALLY SIGNED 03/01/14 1728 T: [id number] //ivnm// //add1// //add3// //add2// [id number] documented in this encounter Plan of Treatment [...] 128(H) 74 - 118 CONVERS ION FROM [employer] Comment:Resulted using [employer] POC Software 02/27/2014 10:5 8 AM EST 02/27/2014 11:08 AM EST us Jai Tejeda MD POCT ORDERABLES - DEVICE Erica l Result CONVERSION FROM [employer] * POCT Glucose (02/27/2014 7:57 AM EST) Glucose, POC 110 74 - 118 CONVERS ION FROM [employer] Comment:Resulted using [employer] POC Software 02/27/2014 7:57 AM EST 02/27/2014 8:05 AM EST Jai Tejeda MD POCT ORDERABLES - DEVICE Erica l Result Performing Organization Address [facility] de Phone Number CONVERSION FROM [employer] * (ABNORMAL) Hemoglobin A1C (02/27/2014 6:00 AM EST) Hemoglobin A1C 6.4(H) 4.4 - 6.3 % CONVERSION FROM [employer] Estimated Average Glucose 137 mg/dl CONVERSION FROM [employer] Comment: The estimated average Glucose (eAG) is calculated as follows based on the recommendations of the [place] [employer]: eAG = (A1C x 28.7) - 46.7 Blood specimen (specimen) 02/27/2014 6:00 AM EST 02/27/2014 6:45 AM EST us Jai Tejeda MD LAB BLOOD ORDERABLES Final Re sult Performing Organization Address [facility] de Phone Number CONVERSION FROM [employer] * Troponin T (02/27/2014 1:04 AM EST) Troponin T < 0.01 <0.03 ng/ml CONVERSION FROM [employer] Comment: Troponin-T: <0.03 ng/ml - Negative 0.03 to 0.09 ng/ml - Indeterminate >0.09 ng/ml - Positive for acute myocardial damage Blood specimen (specimen) 02/27/2014 1:04 AM EST 02/27/2014 1:04 AM EST Jai Tejeda MD LAB BLOOD ORDERABLES Final Re sult Performing Organization Address [facility] Co de Phone Number CONVERSION FROM [employer] documented in this encounter Visit Diagnoses Not on filedocumented in this encounter Care Teams Desk Operator Relationship Specialty Start Date End Date None, Pcp, PCP - General 07/28/14 01/13/19 South Khanna MD [address] [place] [id number] PCP - General 01/14/19 03/05/20 Trish Beckett MD [address] [place] [id number] PCP - General 03/06/20 None, MD Baldemar 07/28/14 documented as of this encounter
--- OUTSIDE RECORDS SUMMARY | 2025-02-09 16:50 | XMS_ITS | Data Portability ---
Author Organization [facility] [place] [facility], [facility] Address [address] [place] [phone] Care Team Providers Care Dockmaster Name Role Phone HIM CCA OTHER Assessment Encounter Date Assessment Date Assessment LastModified by Organization Details LastModified Time 08/14/2023 08/14/2023 I have reviewed and agree with the Assessment and Plan as documented by the Television Program Director. I provided real-time medical direction via phone for this encounter, and was available for additional phone based assistance as needed. pt seen for CP radiating down left arm. w/ prior hx of CAD. ECG w/o STEMI. given hx and pmhx recommended transport to ED via 911 which was arranged. pallfather Not available 09/07/2023 10:35:32 09/21/2023 09/21/2023 service called for chest pain found 48 yom with hx RI, CAD s/p stents c/o today acute onset chest pain, diaphoresis c/w prior RI reports all: ASA, nitroglycerin VS af HR80s BP 160s/90s EKG: #Chest pain very concerning for acute RI refer ED vkudesia Not available 09/21/2023 20:15:35 Plan of Treatment Reminders Order Date Submit Date Provider Last Modified By Organization Details Last Modified Time Details Appointments None record ed. Lab None record ed. Referral None record ed. Procedures None record ed. Surgeries None record ed. Imaging None record ed. Medication Orders None record ed. Patient TargetsNo targets recorded. Patient InstructionsNo instructions recorded. Reason for Referral None Reported. Medical Equipment None Reported. Allergies Allergen ID Allergen Name Allergen Category Reaction Reaction Severity Criticality Documentation Date Start Date Code Code System Note Provider Name and Address Organization Details Recorded Time 7180 ibuprofen medicatio n Not available Not available Not available 02/05/2024 5640 RxNorm Not Available [facility] - production 10/29/202 4 03:35:38 7181 acetamino phen medicatio n Not available Not available Not available 02/05/2024 161 RxNorm Not Available [facility] 4 03:35:38 7182 aspirin medicatio n Not available Not available Not available 02/05/2024 1191 RxNorm Not Available [facility] 4 03:35:38 7183 nitroglyc saniya medicatio n Not available Not available Not available 02/05/2024 4917 RxNorm Not Available [facility] 4 03:35:38 Medications Name Sig Start Date Stop Date Status Note LastModified by Organization Details LastModified Time quetiapine 25 mg tablet TAKE TWO TABLETS BY MOUTH TWICE A DAY active Not Available Not Available No t Available atorvastatin 40 mg tablet TAKE ONE TABLET BY MOUTH ONE TIME DAILY active Not Available Not Available N ot Available metformin 500 mg tablet active Not Available Not Available No t Available primidone 50 mg tablet active Not Available Not Available No t Available atorvastatin 80 mg tablet active Not Available Not Available Not Available quetiapine 300 mg tablet active Not Available Not Availabl e Not Available metoprolol succinate ER 50 mg tablet,extend ed release 24 hr active Not Available Not Available Not Available sucralfate 1 gram tablet active Not Available Not Available Not Available propranolol ER 60 mg capsule,24 hr,extended release active Not Available Not Available Not Available sertraline 100 mg tablet TAKE ONE TABLET BY MOUTH ONE TIME DAILY active Not Available Not Available N ot Available quetiapine 200 mg tablet TAKE TWO TABLETS BY MOUTH ONE TIME DAILY AT BEDTIME active Not Available Not Available N ot Available cyanocobalami n (vit B-12) 1,000 mcg tablet active Not Available Not Available Not Available olanzapine 10 mg tablet active Not Available Not Available No t Available clopidogrel 75 mg tablet TAKE ONE TABLET BY MOUTH ONE TIME DAILY active Not Available Not Available N ot Available amlodipine 5 mg tablet active Not Available Not Available No t Available divalproex 500 mg tablet,delaye d release TAKE TWO TABLETS BY MOUTH ONE TIME DAILY active Not Available Not Available N ot Available tramadol 50 mg tablet active Not Available Not Available No t Available lithium carbonate ER 450 mg tablet,extend ed release active Not Available Not Available N ot Available simvastatin 40 mg tablet active Not Available Not Available Not Available levothyroxine 25 mcg tablet TAKE ONE TABLET BY MOUTH ONE TIME DAILY active Not Available Not Available N ot Available levothyroxine 75 mcg tablet active Not Available Not Availabl e Not Available famotidine 20 mg tablet active Not Available Not Available No t Available cyanocobalami n (vit B-12) 500 mcg tablet TAKE ONE TABLET BY MOUTH ONE TIME DAILY active Not Available Not Available N ot Available tamsulosin 0.4 mg capsule active Not Available Not Available Not Available trazodone 100 mg tablet TAKE 2 TABLETS (200 MG TOTAL) BY MOUTH NIGHTLY NEEDED FOR UP TO 30 DAYS active Not Available Not Available No t Available lithium carbonate 600 mg capsule active Not Available Not Available N ot Available lithium carbonate 300 mg capsule TAKE 2 (600MG) CAPSULES IN THE MORNING AND 2 CAPSULES (600MG) IN THE EVENING WITH MEALS active Not Available Not Available N ot Available levothyroxine 50 mcg tablet active Not Available Not Availabl e Not Available pantoprazole 40 mg tablet,delaye d release active Not Available Not Available No t Available lisinopril 10 mg tablet TAKE ONE TABLET BY MOUTH ONE TIME DAILY active Not Available Not Available N ot Available divalproex ER 500 mg tablet,extend ed release 24 hr active Not Available Not Available Not Available lidocaine 5 % topical patch APPLY ONE PATCH TOPICALLY ONE TIME DAILY active Not Available Not Available No t Available benztropine 1 mg tablet active Not Available Not Available No t Available docusate sodium 100 mg capsule active Not Available Not Available Not Available lisinopril 5 mg tablet active Not Available Not Available No t Available metoprolol succinate ER 25 mg tablet,extend ed release 24 hr active Not Available Not Available Not Available albuterol sulfate HFA 90 mcg/actuation aerosol inhaler active Not Available Not Available Not Available ferrous sulfate 325 mg (65 mg iron) tablet,delaye d release active Not Available Not Available No t Available carbidopa 25 mg-levodopa 100 mg tablet TAKE ONE TABLET BY MOUTH THREE TIMES A DAY active Not Available Not Available No t Available lisinopril 40 mg tablet active Not Available Not Available No t Available lithium carbonate 300 mg tablet TAKE TWO TABLETS BY MOUTH ONE TIME DAILY active Not Available Not Available N ot Available metformin ER 500 mg tablet,extend ed release 24 hr active Not Available Not Available Not Available divalproex ER 250 mg tablet,extend ed release 24 hr active Not Available Not Available Not Available metoprolol tartrate 25 mg tablet TAKE ONE-HALF TABLET BY MOUTH TWICE A DAY active Not Available Not Available No t Available mirtazapine 7.5 mg tablet active Not Available Not Availabl e Not Available All Day Relief 220 mg tablet active Not Available Not Available Not Available quetiapine 50 mg tablet TAKE 1 TABLET (50 MG TOTAL) BY MOUTH IN THE MORNING AND 1 TABLET (50 MG TOTAL) BEFORE BEDTIME active Not Available Not Available No t Available quetiapine 400 mg tablet TAKE 1 TABLET (400 MG TOTAL) BY MOUTH BEDTIME active Not Available Not Available No t Available FeroSul 325 mg (65 mg iron) tablet active Not Available Not Available Not Available melatonin 5 mg tablet active Not Available Not Available No t Available Xarelto 20 mg tablet TAKE ONE TABLET BY MOUTH ONE TIME DAILY WITH DINNER active Not Available Not Available No t Available Vitals Date Recorded Body weight Heart rate Body height Oxygen saturation Oxygen saturation in Arterial blood by Pulse oximetry Respiratory rate Body temperature Systolic And Diastolic Provider Name and Address Organization Details Last Updated DateTime 4 320089. 84 g 70 /min 177.8 cm 96 % 96 % 18 /min 97.5 [degF] 139/76 mm[Hg] Not Available [facility] 4 10:11:56 Date Recorded Body temperature Body weight Respiratory rate Heart rate Body height Oxygen saturation Oxygen saturation in Arterial blood by Pulse oximetry Systolic And Diastolic Provider Name and Address Organization Details Last Updated DateTime 4 98 [degF] 759188. 72 g 16 /min 68 /min 177.8 cm 96 % 96 % 158/110 mm[Hg] Not Available [facility] 4 21:48:03 Social History None recorded. Functional Status None recorded. Mental Status None recorded. Family History Nothing Reported. Medical History No medical history recorded. Past Encounters Encounter ID Performer Location Encounter Start Date Encounter Closed Date Diagnosis/Indication Diagnosis SNOMED-CT Code Diagnosis ICD10 Code Diagnosis IMO Codes Diagnosis Note [id number] Александр Nguyen MD [facility] [address] [place] [phone] 08/15/2023 10:11:44 09/07/2023 10:47:25 Chest pain 69264811 R07.9 [id number] Derrek Avitia MD [facility] [address] [place] [phone] 09/21/2023 19:51:16 09/23/2023 00:43:40 Chest pain 74047876 R07.9 Health Concerns Section Related Observation LastModified by Organization Detai ls LastModified Time None Recorded Concern Status LastModified by Organization Details LastModified Time None Recorded Advance Directives Directive None Recorded Payers Insurance Date Sequence Insurance Name Policy Number Policy Centeno Covered Member ID Centeno Member ID Guarantor Name 01/02/2024 1 [facility] - DOS ON OR AFTER 2022 - DUAL ELIGIBLE - HALFWAY OPTIONS AND ONE CARE (MEDICARE REPLACEMENT/ADV ANTAGE - HMO) Charlie Rios [id number] Charlie Bowden Blanca Notes Date Note Type Note Provider Name and Address Organization Details Recorded Time 08/14/2023 text/html [facility] Nurse Triage Notes (Crystal Rodríguez): Chief Complaints: Cardiac Concern (other), Chest Pain PMH: Heart Disease, Diabetes, Other Allergies: Ibuprofen Comments: Member requesting visit for evaluation of chest pain. Reports left sided chest pain that started 2 hours ago. Pain is constant and reports left arm pain. Cardiac history of RI. Member denies shortness of breath. Recommended 911 for transport to ED. Patient refused ED after education. Television Program Director POC Test Results from [facility] E[facility] (1) [18:14] EKG test performed. Attachments uploaded as part of this test result can be found under Documents section. ................... ................... ................... ................... ................... ................... ................... ........ Television Program Director Note From Lynn Arias: 48 y/o male with heart disease and history of heart attacks, complaining of 10/10 left side chest pain radiating down his left arm. Chest pain started at rest two hours ago, nothing makes it better or worse, pain is not reproducible. Patient complains of SOB on exertion, and worsening chest pain. Patient reports allergies to aspirin and NTG, states that both cause hives and respiratory distress.Patient found sitting in chair, awake and alert. Patient exhibits ROSE that resolves at rest. Skin pink, warm, dry, radial pulse palpable. Sinus rhythm on 12 lead EKG. Lungs clear. Given patient s symptoms and history, it is not safe to leave him at home. 911 activated, and 20g IV access established in left wrist. IV flushes, does not draw back. Patient transported to [facility] by [facility]. Television Program Director Allergies: Acetaminophen, Aspirin, Nitroglycerin, Ibuprofen ................... ................... ................... ................... ................... ................... ................... ........ Disposition: Fulfilled Александр Nguyen MD [address] [place] [address],[address], [place], [phone], [facility] 09/07/2023 10:35:47 09/21/2023 text/html [facility] Nurse Triage Notes (Kiko Jaramillo): Reason For Request: Pt reporting chest pain Chief Complaints: Chest Pain PMH: Heart Disease, Diabetes Allergies: Ibuprofen, Acetaminophen, Aspirin, Nitroglycerin Comments: Steam Pipe Fitter verified the member's name//address and phone number. Mbr calling c/o L sided chest pain starting approx 4 hours ago. Mbr stating pain radiates down L arm, to jaw and neck. Advised mbr to call 911 or go to the nearest emergency room d/t reported symptoms. Mbr adamantly declines at this time and verbalizes understanding of risks of not seeking care immediately for chest pain, mbr continues to insist on [facility] home visit. Education provided on the response time and the member was advised to monitor reported s/s and seek emergency treatment if needed -Renee Jaramillo RN ................... ................... ................... ................... ................... ................... ................... ........ Television Program Director Note From Germán Vincent: 48 yo male co pain in left chest, jaw and arm that feels just like his last 5 NSTEMI with multiple cardiac caths and two stents in place with significant other blockage. Pt in mild distress on front porch of prison[facility]iary house. Pt extremely diaaphoretic. Pt states he never shows a sTEMI but has a Sinus rhythm. 12 lead showed Sinus Rhythm at rate of 68 with no ectopy. Pt agreed to immediate transport. Contacted Dr. Lundberg after 911 call to [place] via [facility]. [place] [id number] arrived and was familiar with patient. Pt allergic to asa, nitro , NSAIDS and Tylenol which make him itch and stop breathing. Possible behavior health issues but no staff were around. Pt is own proxy. Report to [place] [id number] medic. Pt stepped onto stretcher and stated he [facility] to [facility]. 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 Dr. Lundberg advised pt should go directly to clinical laboratory manager from ER which I advised medic but multiple past transports may not indicate. Pt thanked me for helping him and contacting the DrJanet ] Television Program Director Allergies: Ibuprofen, Acetaminophen, Aspirin, Nitroglycerin ................... ................... ................... ................... ................... ................... ................... ........ Disposition: Fulfilled Derrek Avitia MD [address] [place] [address],[address], [place], [phone], OSVALDO DAVIES 09/21/2023 22:45:32
--- OUTSIDE RECORDS SUMMARY | 2025-02-09 16:51 | XMS_ITS | Clinical Summary ---
Author Organization [facility] Address [address] [place] [address] Care Team Providers Care Vice President Diversity Name Role Phone Unknown, Pcp MD Primary [...] Sign Reading Time Taken Comments Blood Pressure 135/79 03/07/2024 8:34 AM EST Pulse 94 03/07/2024 8:34 AM EST Temperature 36.8 C (98.2 F) 03/07/2024 8:34 AM EST Respiratory Rate 18 03/07/2024 8:34 AM EST Oxygen Saturation 96% 10/31/2023 6:02 AM EDT Inhaled Oxygen Concentration - - Weight 115.7 kg (255 lb) 10/11/2023 8:58 PM EDT Height 177.8 cm (5' 10 ) 10/11/2023 8:58 PM EDT Body Mass Index 36.59 10/11/2023 8:58 PM EDT Plan of Treatment Health Maintenance Due Date Last Done Comments HEPATITIS C SCREENING 1993 DTAP/TDAP/TD VACCINES (1 - Tdap) 2005 PNEUMOCOCCAL VACCINE (2 of 2 - PCV) 02/18/2017 02/19/2016, 09/01/2013, 02/15/2011 COLONOSCOPY (CRC) 2021 COLORECTAL CANCER SCREENING (CRC) 2021 CT COLONOGRAPHY (CRC) 2021 FIT-DNA (CRC) 2021 FIT/iFOBT (CRC) 2021 SIGMOIDOSCOPY (CRC) 2021 INFLUENZA VACCINE (#1) 2024 , 01/02/2020, 12/12/2018, Additional history exists COVID-19 IMMUNIZATION ( - 2025-26 season) 2024 03/30/2021, 08/20/2020, 06/07/2020 ZOSTER VACCINE (1 of 2) 2026 RSV IMMUNIZATION (1 - 1-dose 75+ series) 08/01/2051 IPV VACCINES Aged Out No longer eligi ble based on patient's age to complete this topic MENINGOCOCCAL B VACCINE Aged Out No l onger eligible based on patient's age to complete this topic Insurance CCA DUAL (HMO DSNP) [facility] CCA DUAL (HMO DSNP) [facility] Advance Directives For more information, please contact: [phone] * Full Code (Latest Code Status on [...] 2:30 AM 03/28/2017 9:10 AM Care Teams Vice President Diversity Relationship Specialty Start Date End Date Unknown, MD Baldemar Unknown Address Unknown [facility], PCP - General Internal Medicine 02/08/24 Unknown, MD Baldemar Unknown Address Unknown City, 02/08/24 Unknown, MD Baldemar Unknown Address Unknown City, 10/17/23
--- OUTSIDE RECORDS SUMMARY | 2025-02-09 16:51 | XMS_ITS | Encounter Summary ---
Author Organization [facility] Address [address] [place] [address] Care Team Providers Care Flexboard Operator Name Role Phone Pcp, No Unavailable Unavailable Guru Sánchez MD Primary Care Provider [phone] Encounter Details Date Type Department Care Team (Latest Contact Info) Description 01/30/2025 Lab Requisition [facility] [address] [place] [phone] Kojo Escobedo, ALEC [address] [place] [phone] Schizoaffective disorder, bipolar type (HCC) Social History Tobacco Use Types Packs/Day Years Used Date Smoking Tobacco: Former Cigarettes 2 3 Smokeless Tobacco: Never Alcohol Use Standard Drinks/Week Comments No 0 (1 standard drink = 0.6 oz pur e alcohol) Housing Stability - SDOH Screener Answer Date Recorded What is your living situation today? Steady hous ing 08/01/2024 Do you need help with Housing/Usp resources? Not on file 08/01/2024 Patient indicated no issues from the most recent SDOH questionnaire Not on file 08/01/2024 Homeless diagnosis active in problem list or in an encounter in the past year? Not on file 08/01/2024 Transportation - SDOH Screener Answer D ate Recorded Do you have trouble getting transportation to medical appointments? No 08/01/2024 Do you need help with Transp ortation to medical appointments? Not on file 08/01/2024 Patient indicated no issues from the most recent SDOH questionnaire Not on file 08/01/2024 Food Insecurity - SDOH Screener Answer Date Recorded Within the past 12 months, t he food you bought just didn't last and you didn't have money to get more? Never true 08/01/2024 Within the past 12 months, y ou worried whether your food would run out before you got money to buy more? Never true 2024 Do you need help with Food resources? Not on elda e 08/01/2024 Patient indicated no issues from the most recent SDOH questionnaire Not on file 08/01/2024 Utilities - SDOH Screener Answer Date R ecorded Do you have trouble paying y our heating and/or electricity bill? No 08/01/2024 Do you need help with Utilities? Not on file 08/01/2024 Patient indicated no issues from the most recent SDOH questionnaire Not on file 08/01/2024 Sex and Gender Information Value Date Recorded Sex Assigned at Male 01/30/2025 8:43 AM EDT Legal Sex Male 8:29 AM EDT Gender Identity Male 01/30/2025 8:43 AM EDT Sexual Orientation Straight 01/30/2025 8 :43 AM EDT documented as of this encounter Plan of Treatment Not on file documented as of this encounter Procedures Procedure Name Priority Date/Time Associated Diagnosis Comments LIPID PROFILE, REFLEX DIRECT LDL Routine 01/30/2025 7:45 AM EDT Schizoaffective disorder, bipolar type (HCC) TSH WITH REFLEX TO FREE T4 Routine 01/30/2025 7:45 AM EDT HEMOGLOBIN A1C Routine 01/30/2025 7:45 AM EDT LITHIUM LEVEL Routine 01/30/2025 7:45 AM EDT VALPROIC ACID LEVEL Routine 01/30/2025 7 :45 AM EDT documented in this encounter Results * (ABNORMAL) Valproic Acid Level (01/30/2025 7:45 AM EDT) Valproic Acid 37.9(L) 50.0 - 100.0 ug/mL 01/30/2025 12:55 PM EDT [facility] Blood Venipuncture / Unknown 01/30/2025 7:45 AM EDT 01/30/2025 9:20 AM EDT [facility]PLI[facility] LAB BLOOD ORDERABLES Final R esult Performing Organization Address [facility] Co de Phone Number [facility] [address] [place] [address] * (ABNORMAL) [place] level (01/30/2025 7:45 AM EDT) [place] <0.10(L) 0.50 - 1.30 mmol/L 01/30/2025 10:02 AM EDT [facility] Blood Venipuncture / Unknown 01/30/2025 7:45 AM EDT 01/30/2025 9:20 AM EDT [facility] LAB BLOOD ORDERABLES Final R esult Performing Organization Address [facility] de Phone Number [facility] [address] [place] [phone] * TSH with reflex to Free T4 (01/30/2025 7:45 AM EDT) TSH 1.256 0.550 - 4.780 uIU/mL 01/30/2025 12:54 PM EDT [facility] Blood Venipuncture / Unknown 01/30/2025 7:45 AM EDT 01/30/2025 9:20 AM EDT [facility] LAB BLOOD ORDERABLES Final R esult Performing Organization Address City/[facility] Co de Phone Number [facility] [address] [place] [phone] * (ABNORMAL) Hemoglobin A1c (01/30/2025 7:45 AM EDT) Hemoglobin A1C 6.4(H) 4.0 - 6.0 % 01/30/2025 10:29 AM EDT [facility] Estimated Average Glucose eAG 137.0(H) 85.0 - 126.0 mg/dL 01/30/2025 10:29 AM EDT [facility] Blood Venipuncture / Unknown 01/30/2025 7:45 AM EDT 01/30/2025 9:20 AM EDT [facility] LAB BLOOD ORDERABLES Final R esult Performing Organization Address [facility] Co de Phone Number [facility] [address] [place] [address] * (ABNORMAL) Lipid profile, reflex direct LDL (01/30/2025 7:45 AM EDT) Cholesterol 85 <200 mg/dL 01/30/2025 12:54 PM EDT [facility] Triglycerides 135 <150 mg/dL 01/30/2025 12:54 PM EDT [facility] HDL 24.4(L) >=60.0 mg/dL 01/30/2025 12:54 PM EDT [facility] LDL Calculated 34 0 - 100 mg/dL 01/30/2025 12:54 PM EDT [facility] Comment:LDL calculated using Friedwald equation Blood Venipuncture / Unknown 01/30/2025 7:45 AM EDT 01/30/2025 9:20 AM EDT [facility] LAB BLOOD ORDERABLES Final R esult Performing Organization Address City/[facility] Co de Phone Number [facility] [address] [place] [phone] documented in this encounter Visit Diagnoses Diagnosis Schizoaffective disorder, bipolar type (HCC) Schizoaffective disorder, unspecified condition documented in this encounter Care Teams Flexboard Operator Relationship Specialty Start Date End Date Guru Sánchez MD [address] [place] [id number] PCP - General Behavioral Health 01/08/17 [place] [id number] 11/25/16 documented as of this encounter
--- OUTSIDE RECORDS SUMMARY | 2025-02-09 16:51 | XMS_ITS | Encounter Summary ---
Author Organization [facility] Address [address] [place] [address] Care Team Providers Care Director Of Securities And Real Estate Name Role Phone Pcp, No Unavailable Unavailable Guru Sánchez MD Primary Care Provider [phone] Encounter Details Date Type Department Care Team (Late st Contact Info) Description 02/05/2025 Lab Requisition [address] [phone] Bertha Worthington, [employer]ICAL [employer] [facility] [place] [address] Schizoaffective disorder, bipolar type (HCC) Social History Tobacco Use Types Packs/Day Years Used Date Smoking Tobacco: Former Cigarettes 2 3 Smokeless Tobacco: Never Alcohol Use Standard Drinks/Week Comments No 0 (1 standard drink = 0.6 oz pur e alcohol) Housing Stability - SDOH Screener Answer Date Recorded What is your living situation today? Steady hous ing 08/01/2024 Do you need help with Housing/Group Home resources? Not on file 08/01/2024 Patient indicated [...] 8:43 AM EDT Sexual Orientation Straight 01/30/2025 8: 43 AM EDT documented as of this encounter Plan of Treatment Not on file documented as of this encounter Procedures Procedure Name Priority Date/Time Associated Diagnosis Comments LITHIUM LEVEL Routine 02/05/2025 6:00 AM EDT VALPROIC ACID LEVEL Routine 02/05/2025 6 :00 AM EDT Schizoaffective disorder, bipolar type (HCC) documented in this encounter Results * (ABNORMAL) [place] level (02/05/2025 6:00 AM EDT) [place] 0.39(L) 0.50 - 1.30 mmol/L 02/05/2025 9:54 AM EDT [facility] Blood Venipuncture / Unknown 02/05/2025 6:00 AM EDT 02/05/2025 9:25 AM EDT us Bertha Worthington NP LAB BLOOD ORDERABLES Final Re sult [facility] [address] [place] [address] * Valproic Acid Level (02/05/2025 6:00 AM EDT) Valproic Acid 50.5 50.0 - 100.0 ug/mL 02/05/2025 9:53 AM EDT [facility] Blood Venipuncture / Unknown 02/05/2025 6:00 AM EDT 02/05/2025 9:25 AM EDT us Bertha Worthington [employer] LAB BLOOD ORDERABLES Final Re sult [facility] [address] [place] [address] documented in this encounter Visit Diagnoses Diagnosis Schizoaffective disorder, bipolar type (HCC) Schizoaffective disorder, unspecified condition documented in this encounter Care Teams Director Of Securities And Real Estate Relationship Specialty Start Date End Date Guru Sánchez MD [address] [place] [address] PCP - General Behavioral Health 01/08/17 [place] [id number] 11/25/16 documented as of this encounter
--- OUTSIDE RECORDS SUMMARY | 2025-02-09 16:51 | XMS_ITS | Encounter Summary ---
Author Organization Lizzeth Maier [facility] Address [address] [place] [address] Care Team Providers Care Ash Collector Name Role Phone None, Pcp Primary Care Provider Unavailabl e None, Pcp Unavailable Unavailable South Khanna MD Primary Care Provider [phone] Trish Beckett MD Primary Care Provider Encounter Details Date [...] Torres MD - 11/24/2014 7:51 AM EDT [facility] Name: CHARLIE HAYWOOD [facility] MR # [id number] : [birth year] Age: 38 Sex: M PROGRESS NOTE ADM IN Location: *[facility] Room: [facility] cc: Ayaan Torres [...] Results LAB/[facility] Laboratory Tests 07/27 07 Hematology WBC (3.8 - 10.5 K/ul) 5.9 [...] Rel Value (25 - 40 %) 45 [place] Rel Value (4 - 12 %) 11 [...] on filedocumented in this encounter Care Teams Ash Collector Relationship Specialty Start Date End Date Baldemar Scott MD PCP - General 07/28/14 01/13/19 South Khanna MD [address] [place] [address] PCP - General 01/14/19 03/05/20 Trish Beckett MD [address] [place] [address] PCP - General 03/06/20 Baldemar Scott MD 07/28/14 documented as of this encounter
--- OUTSIDE RECORDS SUMMARY | 2025-02-09 16:51 | XMS_ITS | Encounter Summary ---
Author Organization Lizzeth Maier [facility] Address [address] [place] [address] Care Team Providers Care Waiter/Waitress Bar Name Role Phone None, Pcp Primary Care Provider Unavailabl e None, Pcp Unavailable Unavailable South Khanna MD Primary Care Provider Trish Beckett MD Primary Care Provider [phone] Encounter Details Date Type Department Care Team (Late st Contact Info) Description 02/26/2014 Clinical Conversion Encounter GENERAL CONVERSION George Pritchett MD [address] [place] [address] Social History Tobacco Use Types Packs/Day Years Used Date Smoking Tobacco: Never Assessed Sex and Gender Information Value Date Recorded Sex Assigned at Male 01/14/2019 2:03 PM EDT Legal Sex Male 3:08 PM EDT Gender Identity Male 01/14/2019 2:03 PM EDT Sexual Orientation Not on file documented as of this encounter H&P Notes * George Pritchett MD - 10/10/2014 3:59 PM EDT [facility] Name: LILIA HAYWOOD [facility] MR # [id number] [facility] : [birth year] Age: 38 Sex: M ADM Shahla HISTORY & PHYSICAL EXAM Location: Room: [facility] Admit Date: 02/26/14 - cc: MD SWAPNA [...] does not even show evidence of old [place]. Blood work is essentially unremarkable except for microcytic anemia, but cardiac enzymes negative. The patient being admitted for chest pain rule out an acute coronary syndrome. PAST MEDICAL HISTORY: As reported by the patient coronary artery disease, status post [place] x4 and stent to the RCA in 2008 done at [facility], history of type 2 diabetes [...] the patient was admitted in 2010 to [facility], had extensive workup with stress test Myoview, [...] had with him. I also asked about [facility] Name: LILIA HAYWOOD [facility] MR # [id number] HISTORY & PHYSICAL continued Admit Date: 02/26/14 [...] ELECTRONICALLY SIGNED 02/27/14 0014 T: SVETLANA 57 //ivnm// //add1// //add3// //add2// [id number] documented in this encounter Plan of Treatment [...] (ABNORMAL) POCT Glucose (02/26/2014 10:01 PM EST) [facility] Glucose, POC 175(H) 74 - 118 CONVERS ION FROM [employer] Comment:Resulted using [employer] POC Software 02/26/2014 10:0 1 PM EST 02/26/2014 10:15 PM EST us Jai Tejeda MD POCT ORDERABLES - DEVICE Erica l Result CONVERSION FROM [employer] * ECG 12 lead (02/26/2014 8:21 PM EST) 02/26/2014 8:21 PM EST Narrative CONVERSION FROM [employer] - 02/27/2014 12:51 PM EST [employer]. Name: LILIA HAYWOOD MR # [id number] EKG REPORT PCP: NO Ord MD: George Pritchett MD : [birth year] Age: 38 Sex: M ADM Shahla Location: 425-1 Exam Date: 02/26/14 cc: Skye [...] PM Referred By: Confirmed By:Daljit Guerra M.D Procedure Note Daljit Guerra J - 11/16/2014 [employer]. Name: LILIA HAYWOOD MR # [id number] EKG REPORT PCP: NO MD Ord MD: George Pritchett MD : [birth year] Age: 38 Sex:M ADMINo Location: [place] [address] Exam Date: 02/26/14 cc: Skye Friend Rafael, [...] Info ECG ORDERABLES Final Result CONVERSION FROM [employer] * XR Portable Chest 1 Vw (02/26/2014 6:23 PM EST) Anatomical Region Laterality Modality Chest Radiographic Janna ging 02/26/2014 6:23 PM EST Narrative 02/26/2014 6:23 PM EST EXAM DESCRIPTION: CHEST PORTABLE FRONTAL VIEW 02/26/2014 [...] IMPRESSION: Normal single view of the chest. Procedure Note [...] of the chest. us Lio Cueto MD IMG DIAGNOSTIC IMAGING ORDERA BLES Final Result * ECG 12 lead (02/26/2014 5:48 PM EST) 02/26/2014 5:48 PM EST Narrative CONVERSION FROM [employer] - 02/27/2014 12:52 PM EST [facility] Name: LILIA HAYWOOD MR # [id number] EKG REPORT PCP: NO MD Ord MD: George Pritchett MD : [birth year] Age: 38 Sex: M ADM [facility] Location: [address] Exam Date: 02/26/14 cc: Skye Friend Rafael, [...] PM Referred By: Confirmed By:Daljit Guerra M.D Procedure Note Daljit Guerra - 11/16/2014 [facility] Name: LILIA HAYWOOD MR # [id number] EKG REPORT PCP: NO Ord MD: George Pritchett MD : [birth year] Age: 38 Sex:M ADMINo Location: [place] [address] Exam Date: 02/26/14 cc: Skye Friend Rafael, [...] Info ECG ORDERABLES Final Result CONVERSION FROM [employer] * (ABNORMAL) CBC and Differential (02/26/2014 5:14 PM EST) WBC 6.4 3.8 - 10.5 K/ul CONVERSION FROM [employer] RBC 4.21 4.1 - 5.6 M/ul CONVERSION FROM [employer] Hemoglobin 9.8(L) 12.7 - 16.7 g/dl CONVERSION FROM [employer] Hematocrit 32.3(L) 38.1 - 50.1 % CONVERSION FROM [employer] MCV 76.7(L) 82 - 98 fl CONVERSIO N FROM [employer] MCH 23.3(L) 25 - 35 pg CONVERSIO N FROM [employer] MCHC 30.3(L) 33 - 36 g/dl CONVERSION FROM [employer] RDW 17.1(H) 11.5 - 14.5 % CONVERSION FROM [employer] Platelet Count 416 150 - 450 K/ul CONVERSION FROM [employer] MPV 9.4 6 - 14 fl CONVERSION FROM [employer] Neutrophil 49(L) 50 - 70 % CONVERSIO N FROM [employer] Absolute Neutrophil Count 3.1 2.2 - 8.6 K/ul CONVERSION FROM [employer] Lymphocyte 37 25 - 40 % CONVERSIO N FROM [employer] Absolute Lymphocyte Count 2.4 1.5 - 4.0 K/ul CONVERSION FROM [employer] Monocyte 12 4 - 12 % CONVERSION FROM [employer] Absolute Monocyte Count 0.8 0.16 - 1.26 K/ul CONVERSION FROM [employer] Eosinophil 2 0 - 3 % CONVERSIO N FROM [employer] Absolute Eosinophil Count 0.1(L) 0.15 - 0.30 K/ul CONVERSION FROM [employer] Basophil 0 0 - 2 % CONVERSION FROM [employer] Absolute Basophil Count 0.0 0.0 - 0.21 K/ul CONVERSION FROM [employer] Neutrophil 0 % CONVERSIO N FROM [employer] Granulocytes(Ap heresis) 0 K/ul CONVERSION FROM [employer] Blood specimen (specimen) 02/26/2014 5:14 PM EST 02/26/2014 5:22 PM EST us Jai Tejeda MD LAB BLOOD ORDERABLES Final Re sult Performing Organization Address City/[facility] de Phone Number CONVERSION FROM [employer] * APTT (02/26/2014 5:14 PM EST) PTT 29.5 22.5 - 35.5 SECONDS CONVERSION FROM [employer] Blood specimen (specimen) 02/26/2014 5:14 PM EST 02/26/2014 5:22 PM EST Jai Tejeda MD LAB BLOOD ORDERABLES Final Re sult Performing Organization Address [facility] de Phone Number CONVERSION FROM [employer] * ProTime-INR (02/26/2014 5:14 PM EST) Prothrombin Time 13.4 12.2 - 14.2 SECONDS CONVERSION FROM [employer] INR 1.04 0.90 - 1.10 CONVERSI ON FROM [employer] Blood specimen (specimen) 02/26/2014 5:14 PM EST 02/26/2014 5:22 PM EST us Jai Tejeda MD LAB BLOOD ORDERABLES Final Re sult CONVERSION FROM [employer] * Troponin T (02/26/2014 5:14 PM EST) Pathologist [facility] Troponin T < 0.01 <0.03 ng/ml CONVERSION FROM [employer] Comment: Troponin-T: <0.03 ng/ml - Negative 0.03 to 0.09 ng/ml - Indeterminate >0.09 ng/ml - Positive for acute myocardial damage Blood specimen (specimen) 02/26/2014 5:14 PM EST 02/26/2014 5:22 PM EST Jai Tejeda MD LAB BLOOD ORDERABLES Final Re sult CONVERSION FROM [employer] * Basic Metabolic Panel (02/26/2014 5:14 PM EST) [facility] Sodium 134 134 - 145 mmol/L CONVERSION FROM [employer] Potassium, Plasma 4.3 3.5 - 5.1 mmol/L CONVERSION FROM [employer] Chloride 100 96 - 108 mmol/L CONVERSION FROM [employer] Total CO2 24 22 - 32 mmol/L CONVERSION FROM [employer] Anion Gap 10 6 - 16 CONVERSION FROM [employer] Calcium 9.1 8.5 - 10.5 mg/dL CONVERSION FROM [employer] Glucose, Blood RANDOM CONVE RSION FROM [employer] Glucose, Blood 107 74 - 118 mg/dL CONVERSION FROM [employer] BUN 14 6 - 23 mg/dL CONVERSION FROM [employer] Creatinine 0.7 0.5 - 1.2 mg/dL CONVERSION FROM [employer] Glomerular Filtration Rate > 60 >60 ml/min CONVERSION FROM [employer] Result 20 6 - 25 RATIO CONVERSION FROM [employer] Hemolysis Normal CONVERSION FROM [employer] Blood specimen (specimen) 02/26/2014 5:14 PM EST 02/26/2014 5:22 PM EST Jai Tejeda MD LAB BLOOD ORDERABLES Final Re sult CONVERSION FROM [employer] * ECG 12 lead (02/26/2014 4:50 PM EST) 02/26/2014 4:50 PM EST Narrative CONVERSION FROM [employer] - 02/27/2014 12:51 PM EST [employer]. Name: LILIA HAYWOOD MR # [id number] EKG REPORT PCP: NO Ord MD: Lio Cueto M.D. : [birth year] Age: 38 Sex: M ADM Shahla Location: [place] [address] Exam Date: 02/26/14 cc: Skye Friend Joshua, [...] PM Referred By: Confirmed By:Daljit Guerra M.D Procedure Note Daljit Guerra - 11/16/2014 [facility] [employer]. Name: LILIA HAYWOOD MR # [id number] EKG REPORT PCP: NO Ord MD: Lio Cueto M.D. : [birth year] Age: 38 [id number] Location: [place] [address] Exam Date: 02/26/14 cc: Skye Friend Joshua, [...] Info ECG ORDERABLES Final Result CONVERSION FROM [employer] documented in this encounter Visit Diagnoses Not on filedocumented in this encounter Care Teams Waiter/Waitress Bar Relationship Specialty Start Date End Date None, PcpMD PCP - General 07/28/14 01/13/19 South Khanna MD [address] [place] [address] PCP - General 01/14/19 03/05/20 Trish Beckett MD [address] [place] [address] PCP - General 03/06/20 None, MD Baldemar 07/28/14 documented as of this encounter
--- OUTSIDE RECORDS SUMMARY | 2025-02-09 16:51 | XMS_ITS | Encounter Summary ---
Author Organization Lizzeth Sedras [facility] Address [address] [place] [address] Care Team Providers Care Family Program Specialist Name Role Phone None, Pcp Primary Care Provider Unavailabl e None, Pcp Unavailable Unavailable South Khanna MD Primary Care Provider [phone] Trish Beckett MD Primary Care Provider [phone] Encounter Details Date Type Department Care Team (Late st Contact Info) Description 08/05/2014 Clinical Conversion Encounter GENERAL CONVERSION Roc Mcintosh MD [address] [place] [address] Social History Tobacco Use Types Packs/Day Years Used Date Smoking Tobacco: Never Assessed Sex and Gender Information Value Date Recorded Sex Assigned at Male 01/14/2019 2:03 PM EDT Legal Sex Male 3:08 PM EDT Gender Identity Male 01/14/2019 2:03 PM EDT Sexual Orientation Not on file documented as of this encounter Consult Notes * Roc Mcintosh MD - 10/26/2014 6:[address] [facility] Name: CHARLIE HAYWOOD [facility] R # [id number] [facility] : [birth year] Age: 38 Sex: M DIS Shahla CONSULTATION REPORT Location: *[facility] Room: [facility] Admit Date: 07/26/14 - 07/29/14 cc: Roc Mcintosh M.D. NO _ DATE OF CONSULTATION: 07/26/2014 PSYCHIATRIC CONSULTATION PROBLEM FOR CONSULTATION: Suicidal ideation. HISTORY OF THE PROBLEM: The patient is an unfortunate 39-year-old gentleman with a reported history of mood disorder, but truly a history of repeated episodes of malingering, who for the last several years has presented to most of the major hospitals in the [facility] area reporting variously chest pain, falls, bleeding, and a number of other elements in an attempt to cope and be taking care of. At times, he has outright acknowledged that this is what he does, other times he ____. PAST PSYCHIATRIC HISTORY: The patient has a [facility] caser shoe parts, named Toney Astudillo, who we have spoken to in the past, cell phone number ____. He also has a brother named Ronaldo, , who gave me permission to speak with Ronaldo, but not with Toney. His last psychiatric hospitalization was in 2010, at [facility]. At that time, he was [...] according to his brother, he presented to [facility] the day prior to his presentation [...] stance with regard to his reports of [facility] Name: CHARLIE HAYWOOD [facility] MR # [id number] CONSULTATION continued Admit Date: 07/26/14 symptoms. At the present time, there is certainly no need for one-to-one observation, there is no need for any change in psychiatric care, and there are no psychiatric contraindications to discharge. Dictated by: Roc Mcintosh M.D. ELECTRONICALLY SIGNED 09/05/14 1152 T: SVETLANA [id number] //ivnm// //add1// //add3// //add2// [id number] documented in this encounter Plan of Treatment Not on file documented as of this encounter Visit Diagnoses Not on filedocumented in this encounter Care Teams Family Program Specialist Relationship Specialty Start Date End Date None, PcpMD PCP - General 07/28/14 01/13/19 South Khanna MD [address] [place] [address] PCP - General 01/14/19 03/05/20 Trish Beckett MD [address] [place] [address] PCP - General 03/06/20 None, PcpMD 07/28/14 documented as of this encounter
--- OUTSIDE RECORDS SUMMARY | 2025-02-09 16:51 | XMS_ITS | Encounter Summary ---
Author Organization [facility] [address] [place] [address] Care Team Providers Care Fire Prevention Inspector Name Role Phone Pcp, No Unavailable Unavailable Guru Sánchez MD Primary Care Provider [phone] Encounter Details Date Type Department Care Team (Late st Contact Info) Description 01/06/2020 Lab Requisition [address] [phone] Cris Arthur, DO [address] [place] [address] Illness, unspecified Social History Tobacco Use Types Packs/Day Years Used Date Smoking Tobacco: Every Day Cigarettes 2 3 Smokeless Tobacco: Never Alcohol [...] Procedure Name Priority Date/Time Associated Diagnosis Comments TSH WITHOUT REFLEX Routine 01/06/2020 7: 00 AM EDT Illness, unspecified VALPROIC ACID LEVEL Routine 01/06/2020 7 :00 AM EDT Illness, unspecified documented in this encounter Results * (ABNORMAL) Valproic Acid Level (01/06/2020 7:00 AM EDT) Valproic Acid 38.3(L) 50.0 - 125.0 ug/mL 01/06/2020 9:32 AM EDT [facility] Blood specimen (specimen) Venipuncture / Unknown 01/06/2020 7:00 AM EDT 01/06/2020 8:16 AM EDT Cris Arthur DO LAB BLOOD ORDERABLES Final Result Performing Organization Address [facility] Co de Phone Number [facility] [address] [place] [address] * TSH Without Reflex (01/06/2020 7:00 AM EDT) TSH 2.683 0.550 - 4.780 uIU/mL 01/07/2020 11:31 AM EDT [facility] Blood specimen (specimen) Venipuncture / Unknown 01/06/2020 7:00 AM EDT 01/06/2020 8:16 AM EDT Cris Arthur DO LAB BLOOD ORDERABLES Final Result Performing Organization Address City/[facility] Co de Phone Number [facility] [address] [place] [address] documented in this encounter Visit Diagnoses Diagnosis Illness, unspecified documented in this encounter Additional Health Concerns Infection Onset Date Last Indicated Resolved Time COVID-19 04/12/2021 04/12/2021 05/10/2021 11:4 6 PM EST documented as of this encounter Care Teams Fire Prevention Inspector Relationship Specialty Start Date End Date Guru Sánchez MD [address] [place] [address] PCP - General Behavioral Health 01/08/17 [place] [id number] 11/25/16 documented as of this encounter
--- OUTSIDE RECORDS SUMMARY | 2025-02-09 16:51 | XMS_ITS | Clinical Summary ---
Author Organization [facility] Address [address] [place] [address] Care Team Providers Care Lever Miller Name Role Phone Pcp, No Unavailable Unavailable Guru Sánchez MD Primary Care Provider [phone] Allergies Active Allergy Reactions Criticality Noted Date Comments Amoxicillin Hives,Shortness Of Breath High 7 Aspirin Hives,Shortness Of Breath High 11/25/2016 Chicken - Food Allergy Anaphylaxis High 08/04/2024 Fish Protein-Containing Drug Products Anaphylaxis High 08/04/2024 Ibuprofen Hives,Shortness Of Breath High 11/25/2016 Nitroglycerin Hives,Shortness Of Breath High 017 Acetaminophen Hives,Shortness Of Breath High 017 Medications pantoprazole (PROTONIX) 40 MG delayed release EC tablet Take 1 tablet (40 mg total) by mouth daily Active QUEtiapine (SEROquel) 300 MG tablet Take 1 tablet (300 mg total) by mouth at bedtime Active tamsulosin (FLOMAX) 0.4 MG capsule Take 1 capsule (0.4 mg total) by mouth daily Active atorvastatin 40 MG tablet Take 1 tablet (40 mg total) by mouth at bedtime Active clopidogrel (PLAVIX) 75 MG tablet Take 1 tablet (75 mg total) by mouth daily Active haloperidol (HALDOL) 2 MG tablet Take 1 tablet (2 mg total) by mouth at bedtime Active carbidopa-levod opa (SINEMET) 25-100 MG per tabletIndicatio ns:Parkinson's Disease Take 1 tablet by mouth 3 (three) times a day Indications: Parkinson's Disease Active lisinopril (PRINIVIL,ZESTR IL) 5 MG tablet Take 1 tablet (5 mg total) by mouth daily. 30 tablet 0 7 Active amLODIPine (NorVASC) 5 MG tablet Take 1 tablet (5 mg total) by mouth daily HOLD FOR BP LESS THAN OR EQUAL TO 90/60 OR P LESS THAN 60 Active buPROPion (WELLBUTRIN SR) 150 MG extended release 12 hr tablet (SR) Take 1 tablet (150 mg total) by mouth every morning Active famotidine 20 MG tablet Take 1 tablet (20 mg total) by mouth daily Active furosemide (LASIX) 20 MG tablet Take 1 tablet (20 mg total) by mouth daily Active lacosamide (VIMPAT) 50 MG tablet 2 tablets (100 mg total) 2 (two) times a day Active lamoTRIgine (LaMICtal) 25 MG tablet Take 2 tablets (50 mg total) by mouth daily Active levothyroxine (SYNTHROID) 25 MCG tablet Take 1 tablet (25 mcg total) by mouth every morning before breakfast Active melatonin 3 MG tablet Take 1 tablet (3 mg total) by mouth at bedtime Active metFORMIN 500 MG tablet Take 1 tablet (500 mg total) by mouth 2 (two) times a day Active metoprolol succinate (TOPROL XL) 50 MG extended release tablet Take 3 tablets (150 mg total) by mouth daily Active primidone 50 MG tablet Take 1 tablet (50 mg total) by mouth 2 (two) times a day Active QUEtiapine (SEROquel) 400 MG tablet Take 1 tablet (400 mg total) by mouth at bedtime TOTAL 700MG AT HS WITH 300MG DOSE Active sucralfate (CARAFATE) 1 g tablet Take 1 tablet (1 g total) by mouth 2 (two) times a day Active rivaroxaban (XARELTO) 20 MG tablet Take 1 tablet (20 mg total) by mouth at bedtime Active albuterol sulfate 108 (90 Base) MCG/ACT inhalation aerosol Inhale 2 puffs every 6 (six) hours as needed for wheezing or shortness of breath Active LORazepam (ATIVAN) 1 MG tablet Take 1 tablet (1 mg total) by mouth daily as needed for anxiety Active QUEtiapine (SEROquel) 50 MG tablet Take 1 tablet (50 mg total) by mouth every 6 (six) hours as needed (AGITATION/ANX IETY/INSOMNIA) Active Active Problems Problem Noted Date Diagnosed Date LIVAN (acute kidney injury) 08/01/2024 History of pulmonary embolism 08/01/2024 Assessment & Plan (08/04/2024 5:10 PM EDT): Continue Xarelto Assessment & Plan (08/03/2024 3:11 PM EDT): Continue Xarelto Assessment & Plan (08/02/2024 6:58 PM EDT): Continue Xarelto Assessment & Plan (08/01/2024 6:45 PM EDT): Continue Xarelto Microcytic anemia 08/01/2024 Assessment & Plan (08/04/2024 5:10 PM EDT): Appears chronic. H&H trending down but no sign of bleeding. Iron studies normal. Repeat H&H stable Assessment & Plan (08/03/2024 3:11 PM EDT): Appears chronic. H&H trending down but no sign of bleeding. Iron studies normal. Repeat H&H stable Assessment & Plan (08/02/2024 6:58 PM EDT): Appears chronic. H&H trending down but no sign of bleeding. Iron studies normal. Repeat H&H pending Assessment & Plan (08/01/2024 6:45 PM EDT): Appears chronic. H&H trending down but no sign of bleeding. Iron studies pending. Continue to monitor CAD (coronary artery disease) 2024 Assessment & Plan (08/04/2024 5:10 PM EDT): Continue Lipitor, Plavix and lopressor Assessment & Plan (08/03/2024 3:11 PM EDT): Continue Lipitor, Plavix and lopressor Assessment & Plan (08/02/2024 6:58 PM EDT): Continue Lipitor, Plavix and lopressor Assessment & Plan (08/01/2024 6:45 PM EDT): Continue Lipitor, Plavix and lopressor Assessment & Plan (2024 4:10 PM EDT): Continue Lipitor, Plavix and lopressor GERD (gastroesophageal reflux disease) Assessment & Plan (08/04/2024 5:10 PM EDT): Continue PPI Assessment & Plan (08/03/2024 3:11 PM EDT): Continue PPI Assessment & Plan (08/02/2024 6:58 PM EDT): Continue PPI Assessment & Plan (08/01/2024 6:45 PM EDT): Continue PPI Assessment & Plan (2024 4:10 PM EDT): Continue PPI Tobacco use disorder 2024 Assessment & Plan (08/04/2024 5:10 PM EDT): Continue nicotine patch Assessment & Plan (08/03/2024 3:11 PM EDT): Continue nicotine patch Assessment & Plan (08/02/2024 6:58 PM EDT): Continue nicotine patch Assessment & Plan (08/01/2024 6:45 PM EDT): Continue nicotine patch Assessment & Plan (2024 4:10 PM EDT): Continue nicotine patch Parkinson's disease 2024 Assessment & Plan (08/04/2024 5:10 PM EDT): Continue Sinemet Assessment & Plan (08/03/2024 3:11 PM EDT): Continue Sinemet Assessment & Plan (08/02/2024 6:58 PM EDT): Continue Sinemet Assessment & Plan (08/01/2024 6:45 PM EDT): Continue Sinemet Assessment & Plan (2024 4:10 PM EDT): Continue Sinemet Bipolar disorder 2024 Assessment & Plan (08/04/2024 5:10 PM EDT): Continue Depakote, Seroquel, Klonopin, Haldol, hydroxyzine, Neurontin, trazodone and lithium Assessment & Plan (08/03/2024 3:11 PM EDT): Continue Depakote, Seroquel, Klonopin, Haldol, hydroxyzine, Neurontin, trazodone and lithium Assessment & Plan (08/02/2024 6:58 PM EDT): Continue Depakote, Seroquel, Klonopin, Haldol, hydroxyzine, Neurontin, trazodone and lithium Assessment & Plan (08/01/2024 6:45 PM EDT): Continue Depakote, Seroquel, Klonopin, Haldol, hydroxyzine, Neurontin, trazodone and lithium Assessment & Plan (2024 4:10 PM EDT): Continue Depakote, Seroquel, Klonopin, Haldol, hydroxyzine, Neurontin, trazodone and lithium BPH (benign prostatic hyperplasia) 2024 Assessment & Plan (08/04/2024 5:10 PM EDT): Continue Flomax Assessment & Plan (08/03/2024 3:11 PM EDT): Continue Flomax Assessment & Plan (08/02/2024 6:58 PM EDT): Continue Flomax Assessment & Plan (08/01/2024 6:45 PM EDT): Continue Flomax Assessment & Plan (2024 4:10 PM EDT): Continue Flomax HTN (hypertension) 2024 Assessment & Plan (08/04/2024 5:10 PM EDT): Lisinopril and Lopressor Assessment & Plan (08/03/2024 3:11 PM EDT): Lisinopril and Lopressor Assessment & Plan (08/02/2024 6:58 PM EDT): Lisinopril and Lopressor Assessment & Plan (08/01/2024 6:45 PM EDT): Lisinopril and Lopressor Assessment & Plan (2024 4:10 PM EDT): Lisinopril and Lopressor Type 2 diabetes mellitus, wi th long-term current use of insulin 2024 Assessment & Plan (08/04/2024 5:10 PM EDT): Contiune on insulin sliding scale. Hemoglobin A1c 6.2 . No longer taking Levemir 10 units at bedtime. Hold metformin in case he needs contrast studies Assessment & Plan (08/03/2024 3:11 PM EDT): Contiune on insulin sliding scale. Hemoglobin A1c 6.2 . No longer taking Levemir 10 units at bedtime. Hold metformin in case he needs contrast studies Assessment & Plan (08/02/2024 6:58 PM EDT): Contiune on insulin sliding scale. Hemoglobin A1c 6.2 . No longer taking Levemir 10 units at bedtime. Hold metformin in case he needs contrast studies Assessment & Plan (08/01/2024 6:45 PM EDT): Contiune on insulin sliding scale. Hemoglobin A1c 6.2 . No longer taking Levemir 10 units at bedtime. Hold metformin in case he needs cardiac catheterization Assessment & Plan (2024 4:10 PM EDT): Started on insulin sliding scale. Continue Levemir 10 units at bedtime Unstable angina 11/28/2016 Chest pain 11/25/2016 Assessment & Plan (08/04/2024 5:10 PM EDT): Unclear. History of CAD status post RCA stent in the past. Chest x-ray with no acute findings. EKG and troponin are negative. ProBNP and D-dimer Normal. Underwent an echocardiogram which showed no wall motion abnormalities. Evaluated by Cardiology and underwent nuclear stress test which was negative for acute ischemia. I discussed the case with Cardiology and no plan at this time for cardiac catheterization. Assessment & Plan (08/03/2024 3:11 PM EDT): Unclear. History of CAD status post RCA stent in the past. Chest x-ray with no acute findings. EKG and troponin are negative. ProBNP and D-dimer Normal. Underwent an echocardiogram which showed no wall motion abnormalities. Evaluated by Cardiology and plan for nuclear stress test in a.m. Assessment & Plan (08/02/2024 6:58 PM EDT): Unclear. History of CAD status post RCA stent in the past. Chest x-ray with no acute findings. EKG and troponin are negative. ProBNP and D-dimer Normal. Underwent an echocardiogram which showed no wall motion abnormalities. Evaluated by Cardiology and no plan for further cardiac testing. Assessment & Plan (08/01/2024 6:45 PM EDT): Unclear. History of CAD status post RCA stent in the past. Chest x-ray with no acute findings. EKG and troponin are negative. Cardiology consult given history of CAD. ProBNP and D-dimer Normal Assessment & Plan (2024 4:10 PM EDT): Unclear. History of CAD status post RCA stent in the past. Chest x-ray with no acute findings. EKG and troponin are negative. Cardiology consult given history of CAD. ProBNP and D-dimer pending Encounters Date Type Department Care Team Description 02/05/2025 Lab Requisition [address] [phone] Bertha Worthington NP Schizoaffective disorder, bipolar type (HCC) 02/01/2025 7:20 PM EDT - 02/01/2025 10:59 PM EDT Emergency [address] [phone] Rowena Cunningham MD Chest pain (Primary Dx) Discharge Disposition: Home or Self Care 02/01/2025 Travel 01/30/2025 10:55 AM EDT - 01/30/2025 2:15 PM EDT Emergency [address] [phone] Devon Corbett MD Nonspecific chest pain (Primary Dx) Discharge Disposition: Home or Self Care 01/30/2025 Travel 01/30/2025 Lab Requisition [address] [phone] Kojo Escobedo NP Schizoaffective disorder, bipolar type (HCC) from Last 3 Months Social History Tobacco Use Types Packs/Day Years Used Date Smoking Tobacco: Former Cigarettes 2 3 Smokeless Tobacco: Never Tobacco Cessation:Counseling Given: Not Answered Alcohol Use Standard Drinks/Week Comments No 0 (1 standard drink = 0.6 oz pur e alcohol) Housing Stability - SDOH Screener Answer Date Recorded What is your living situation today? Steady hous ing 08/01/2024 Do you need help with Housing/Half-Way resources? Not on file 08/01/2024 Patient indicated [...] Orientation Straight 01/30/2025 8: 43 AM EDT Last Filed Vital Signs Vital Sign Reading Time Taken Comments Blood Pressure 147/76 02/01/2025 10:45 PM EDT Pulse 92 02/01/2025 10:45 PM EDT Temperature 36.8 C (98.3 F) 02/01/2025 7:52 PM EDT Respiratory Rate 17 02/01/2025 10:45 PM EDT Oxygen Saturation 99% 02/01/2025 10:45 PM EDT Inhaled Oxygen Concentration - - Weight 118 kg (260 lb) 02/01/2025 7:52 PM EDT Height 177.8 cm (5' 10 ) 02/01/2025 7:52 PM EDT Body Mass Index 37.31 02/01/2025 7:52 PM EDT Plan of Treatment Health Maintenance Due Date Last Done Comments Annual Physical 08/01/1979 Diabetes Foot Screening 1994 Diabetes Retinopathy Screening 1994 Hepatitis B Screening 1994 DTaP,Tdap,and Td Vaccines (1 - Tdap) 08/01/1995 Pneumococcal Vaccines 0-49 yrs (includes High Risk) (2 of 2 - PCV) 02/18/2017 02/19/2016, 09/01/2013, 02/15/2011 CT Colonography 2021 Colonoscopy 2021 Colorectal Cancer Screening 2021 FIT-DNA 2021 FOBT 2021 Sigmoidoscopy 2021 COVID-19 Vaccine (3 - season) 2024 08/11/2020, 06/07/2020 Influenza Vaccine (#1) 2024 , 01/02/2020, 12/12/2018, Additional history exists Diabetes A1c Monitoring 2025 01/31/20, 11/18/2024, 11/07/2024, Additional history exists Diabetes Nephropathy Screening 12/17/2025 12/17/2024, 01/16/2024, 10/21/2022, Additional history exists Diabetes LDL Screening 01/30/2026 , 11/18/2024, 08/01/2024, Additional history exists Diabetes eGFR Screening 02/01/2026 02/02/20, 01/30/2025, 08/03/2024, Additional history exists Cholesterol Screening 01/30/2030 01/30/2025 , 08/01/2024, 11/22/2013 HIB Vaccines Aged Out No longer eligi ble based on patient's age to complete this topic Hepatitis A Vaccine Aged Out No longe r eligible based on patient's age to complete this topic Procedures Procedure Name Priority Date/Time Associated Diagnosis Comments LITHIUM LEVEL Routine 02/05/2025 6:00 AM EDT VALPROIC ACID LEVEL Routine 02/05/2025 6 :00 AM EDT Schizoaffective disorder, bipolar type (HCC) XR CHEST 2 VW Urgent 02/01/2025 9:02 PM EDT NT-PROBNP STAT 02/01/2025 8:40 PM EDT PROTIME-INR STAT 02/01/2025 8:40 PM EDT TROPONIN I HIGH SENSITIVITY STAT 02/01/2025 8:40 PM EDT LIPASE STAT 02/01/2025 8:40 PM EDT COMPREHENSIVE METABOLIC PANEL STAT 02/01/2025 8:40 PM EDT CBC AND AUTO DIFFERENTIAL STAT 02/01/2025 8:40 PM EDT ECG 12-LEAD STAT 02/01/2025 7:52 PM EDT ECG 12-LEAD STAT 01/30/2025 11:48 AM EDT XR CHEST 2 VW Urgent 01/30/2025 11:35 AM EDT LIGHT BLUE TOP STAT 01/30/2025 11:20 AM EDT LAVENDER TOP STAT 01/30/2025 11:20 AM EDT RED TOP STAT 01/30/2025 11:20 AM EDT GREEN PST TOP STAT 01/30/2025 11:20 AM EDT EXTRA TUBES STAT 01/30/2025 11:20 AM EDT MAGNESIUM STAT 01/30/2025 11:20 AM EDT COMP METABOLIC PANEL W/ LIPASE STAT 01/30/2025 11:20 AM EDT TROPONIN I HIGH SENSITIVITY STAT 01/30/2025 11:20 AM EDT CBC AND AUTO DIFFERENTIAL STAT 01/30/2025 11:20 AM EDT VALPROIC ACID LEVEL Routine 01/30/2025 7 :45 AM EDT LITHIUM LEVEL Routine 01/30/2025 7:45 AM EDT TSH WITH REFLEX TO FREE T4 Routine 01/30/2025 7:45 AM EDT HEMOGLOBIN A1C Routine 01/30/2025 7:45 AM EDT LIPID PROFILE, REFLEX DIRECT LDL Routine 01/30/2025 7:45 AM EDT Schizoaffective disorder, bipolar type (HCC) from Last 3 Months Results * (ABNORMAL) Bromide level (02/05/2025 6:00 AM EDT) Only the most recent of2 resultswithin the time period is included. Bromide 0.39(L) 0.50 - 1.30 mmol/L 02/05/2025 9:54 AM EDT [facility] Blood Venipuncture / Unknown 02/05/2025 6:00 AM EDT 02/05/2025 9:25 AM EDT us Bertha Worthington NP LAB BLOOD ORDERABLES Final Re sult [facility] [address] [place] [id number] * Valproic Acid Level (02/05/2025 6:00 AM EDT) Only the most recent of2 resultswithin the time period is included. Valproic Acid 50.5 50.0 - 100.0 ug/mL 02/05/2025 9:53 AM EDT [facility] Blood Venipuncture / Unknown 02/05/2025 6:00 AM EDT 02/05/2025 9:25 AM EDT us Bertha Worthington [employer] LAB BLOOD ORDERABLES Final Re sult [facility] [address] [place] [address] * X-ray chest 2 views (02/01/2025 9:02 PM EDT) Only the most recent of2 resultswithin the time period is included. Anatomical Region Laterality Modality Chest, Ortho Chest Digital Radio graphy 02/02/2025 8:50 AM EDT Impressions 02/02/2025 8:51 AM EDT FINDINGS AND IMPRESSION: Frontal and lateral views of the chest show normally expanded and clear lungs. There is no effusion or pneumothorax. The cardiomediastinal silhouette is within normal limits. No acute skeletal abnormalities. RS: [id number] Narrative 02/02/2025 8:51 AM EDT HISTORY: Midsternal chest pain radiating to the jaw and to the left arm. Chest, 2 views Procedure Note Jailene Comer MD - 02/02/2025 HISTORY: Midsternal chest pain radiating to the jaw and to the left arm. Chest, 2 views FINDINGS AND IMPRESSION: Frontal and lateral views of the chest shownormally expanded and clear lungs. There is no effusion or pneumothorax.The cardiomediastinal silhouette is within normal limits. No acuteskeletal abnormalities. RS: [id number] Rowena Cunningham MD IMG DIAGNOSTIC IMAGING ORDERABL ES Final Result * (ABNORMAL) NT-PROBNP (02/01/2025 8:40 PM EDT) NT-proBNP 142(H) <125 pg/mL 02/01/2025 9:08 PM EDT [facility] Blood Structure of part of right upper limb / Unknown Venipuncture / Unknown 02/01/2025 8:40 PM EDT 02/01/2025 8:46 PM EDT Narrative [facility] - 02/01/2025 9:08 PM EDT PLEASE NOTE NEW DIAGNOSTIC VALUES INTERPRETIVE COMMENTS Age < 50 NT- ProBNP >450 pg/mL. CHF LIKELY Age 50-75 NT- ProBNP >900 pg/mL. CHF LIKELY Age > 75 NT- ProBNP >1800 pg/mL. CHF LIKELY Rule out decision limit for NT-proBNP for cardiogenic acute dyspnea in all ages in ED and inpatient cohorts is <300 pg/mL Rowena Cunningham MD LAB BLOOD ORDERABLES Final Resu lt Performing Organization Address [facility] Co de Phone Number [facility] [address] [place] [address] * Troponin I High Sensitivity (02/01/2025 8:40 PM EDT) Only the most recent of2 resultswithin the time period is included. Troponin I High Sensitivity <3 0 - 53 pg/mL 02/01/2025 9:05 PM EDT [facility] Blood Structure of part of right upper limb / Unknown Venipuncture / Unknown 02/01/2025 8:40 PM EDT 02/01/2025 8:46 PM EDT Narrative [facility] - 02/01/2025 9:05 PM EDT Definite Rule Out 0 Hour: <3 pg/mL Definite Rule In 0 Hour: >=120 pg/mL Low Risk: <10 pg/mL OR Change of <20 at 1 Hour for patients below the reference range Moderate Risk: Change of <15 at 1 Hour if 0 Hour Result was as below: Female 34-115 pg/mL Male 53-115 pg/mL High Risk: >115 OR Change of >=15 at 1 hour from 0 hour result. Correlate with ECG, HEART Score, and clinical findings. Rowena Cunningham MD LAB BLOOD ORDERABLES Final Resu lt Performing Organization Address [facility] Co de Phone Number [facility] [address] [place] [address] * (ABNORMAL) Protime-INR (02/01/2025 8:40 PM EDT) Protime 15.0(H) 9.4 - 12.5 seconds 02/01/2025 9:00 PM EDT [facility] INR 1.29(H) 0.79 - 1.06 02/01/2025 9:00 PM EDT [facility] Blood Structure of part of right upper limb / Unknown Venipuncture / Unknown 02/01/2025 8:40 PM EDT 02/01/2025 8:46 PM EDT Narrative [facility] - 02/01/2025 9:00 PM EDT New reference range reflects new method INR Recommendations for Oral Anticoagulant Therapy Populations INR Value Low Intensity OAC Therapy 1.5-2.0 Mod Intensity OAC Therapy 2.0-3.0 High Intensity OAC Therapy 2.5-4.0 us Rowena Cunningham MD LAB BLOOD ORDERABLES Final Resu lt [facility] [address] [place] [id number] * (ABNORMAL) CBC and Auto Differential (02/01/2025 8:40 PM EDT) Only the most recent of2 resultswithin the time period is included. WBC 5.1 4.8 - 11.2 10*3/ L 02/01/2025 8:50 PM EDT [facility] RBC 4.30 4.00 - 5.90 10*6/ L 02/01/2025 8:50 PM EDT [facility] HGB 12.8(L) 14.0 - 17.2 g/dL 02/01/2025 8:50 PM EDT [facility] HCT 38.4(L) 40.0 - 52.0 % 02/01/2025 8:50 PM EDT [facility] MCV 89.3 82.0 - 98.0 fL 02/01/2025 8:50 PM EDT [facility] MCH 29.8 27.0 - 35.0 pg 02/01/2025 8:50 PM EDT [facility] MCHC 33.3 32.0 - 37.0 g/dL 02/01/2025 8:50 PM EDT [facility] RDW 13.5 12.0 - 15.0 % 02/01/2025 8:50 PM EDT [facility] PLT 277 150 - 400 10*3/ L 02/01/2025 8:50 PM EDT [facility] MPV 10.4 7.0 - 14.0 fL 02/01/2025 8:50 PM EDT [facility] Neut % 51.2 45.0 - 85.0 % 02/01/2025 8:50 PM EDT [facility] Immature Granulocytes % 1.0 0 - 5.0 % 02/01/2025 8:50 PM EDT [facility] Lymph % 32.1 15.0 - 45.0 % 02/01/2025 8:50 PM EDT [facility] [place] % 13.4(H) 0.0 - 12.0 % 02/01/2025 8:50 PM EDT [facility] Eos % 1.9 0.0 - 7.0 % 02/01/2025 8:50 PM EDT [facility] Baso % 0.4 0.0 - 3.0 % 02/01/2025 8:50 PM EDT [facility] NRBC% 0 0 /100 WBC /100 WBC 02/01/2025 8:50 PM EDT [facility] Neut # 2.6 2.2 - 9.5 10*3/ L 02/01/2025 8:50 PM EDT [facility] Immature Granulocytes Absolute 0.05 0.00 - 0.56 10*3/ L 02/01/2025 8:50 PM EDT [facility] Lym # 1.7 0.7 - 5.0 10*3/ L 02/01/2025 8:50 PM EDT [facility] [place] # 0.7 0.0 - 1.3 10*3/ L 02/01/2025 8:50 PM EDT [facility] Eos # 0.1 0.0 - 0.4 10*3/ L 02/01/2025 8:50 PM EDT [facility] Baso # 0.0 0.0 - 0.3 10*3/ L 02/01/2025 8:50 PM EDT [facility] Blood Structure of part of right upper limb / Unknown Venipuncture / Unknown 02/01/2025 8:40 PM EDT 02/01/2025 8:46 PM EDT Rowena Cunningham MD LAB BLOOD ORDERABLES Final Resu lt Performing Organization Address City/[facility] Co de Phone Number [facility] [address] [place] [phone] * Lipase (02/01/2025 8:40 PM EDT) Lipase 24 12 - 53 U/L 02/01/2025 9:08 PM EDT [facility] Blood Structure of part of right upper limb / Unknown Venipuncture / Unknown 02/01/2025 8:40 PM EDT 02/01/2025 8:46 PM EDT Rowena Cunningham MD LAB BLOOD ORDERABLES Final Resu lt Performing Organization Address [facility] de Phone Number [facility] [address] [place] [phone] * (ABNORMAL) Comprehensive metabolic panel (02/01/2025 8:40 PM EDT) Sodium 140 136 - 145 mEq/L 02/01/2025 9:09 PM EDT [facility] Potassium 4.4 3.5 - 5.1 mEq/L 02/01/2025 9:09 PM EDT [facility] Chloride 108 98 - 109 mEq/L 02/01/2025 9:09 PM EDT [facility] CO2 24 20 - 31 mEq/L 02/01/2025 9:09 PM EDT [facility] Anion Gap 8 4 - 15 mEq/L 02/01/2025 9:09 PM EDT [facility] Glucose 85 70 - 100 mg/dL 02/01/2025 9:09 PM EDT [facility] Creatinine 0.65 0.60 - 1.10 mg/dL 02/01/2025 9:09 PM EDT [facility] eGFR (Male) >60 60 - 115 mL/min 02/01/2025 9:09 PM EDT [facility] BUN 11 9 - 23 mg/dL 02/01/2025 9:09 PM EDT [facility] Calcium 8.9 8.3 - 10.6 mg/dL 02/01/2025 9:09 PM EDT [facility] Total Protein 6.7 5.7 - 8.2 g/dL 02/01/2025 9:09 PM EDT [facility] Albumin 3.8 3.2 - 4.8 g/dL 02/01/2025 9:09 PM EDT [facility] A/G Ratio 1.3 1.0 - 2.3 02/01/2025 9:09 PM EDT [facility] Total Bilirubin 0.2 0.2 - 1.0 mg/dL 02/01/2025 9:09 PM EDT [facility] AST 12(L) 13 - 40 U/L 02/01/2025 9:09 PM EDT [facility] Alkaline Phosphatase 55 46 - 116 IU/L 02/01/2025 9:09 PM EDT [facility] ALT 13 7 - 40 U/L 02/01/2025 9:09 PM EDT [facility] Blood Structure of part of right upper limb / Unknown Venipuncture / Unknown 02/01/2025 8:40 PM EDT 02/01/2025 8:46 PM EDT [facility] - 02/01/2025 9:09 PM EDT Calculation based on the Chronic Kidney Disease Epidemiology Collaboration (CKD- EPI) equation refit without adjustment for race. us Rowena Cunningham MD LAB BLOOD ORDERABLES Final Resu lt [facility] [address] [place] [address] * (ABNORMAL) ECG 12-LEAD (02/01/2025 7:52 PM EDT) Only the most recent of2 resultswithin the time period is included. Narrative Rowena Cunningham MD - 02/01/2025 7:52 PM EDT Rowena Cunningham MD 02/01/2025 7:52 PM EKG electrocardiogram Date/Time: 02/01/2025 7:52 PM Performed by: Rowena Cunningham MD Authorized by: Rowena Cunningham MD Measurements: BPM: 76 Findings: Rate: normal Rhythm: Sinus rhythm Normal intervals noted Conduction: normal ST Segments: normal T Waves: non-specific changes Clinical impression:abnormal EKG Interpreted by ED physician Comparison to Previous ECG: Comparison similar to previous ECG, no STEMI us Rowena Cunningham MD ECG ORDERABLES Final Result * Green PST Top (01/30/2025 11:20 AM EDT) Pathologist [facility] Extra Tube Auto resulted. 01/30/2025 3:22 PM EDT [facility] Comment:Hold for add-ons. Blood Structure of right hand / Unknown Venipuncture / Unknown 01/30/2025 11:20 AM EDT 01/30/2025 11:28 AM EDT us Devon Corbett MD LAB BLOOD ORDERABLES Final Re sult [facility] [address] [place] [id number] * (ABNORMAL) Comp Metabolic Panel W/ Lipase (01/30/2025 11:20 AM EDT) Pathologist [facility] Sodium 138 136 - 145 mEq/L 01/30/2025 11:50 AM EDT [facility] Potassium 3.9 3.5 - 5.1 mEq/L 01/30/2025 11:50 AM EDT [facility] Chloride 107 98 - 109 mEq/L 01/30/2025 11:50 AM EDT [facility] CO2 23 20 - 31 mEq/L 01/30/2025 11:50 AM EDT [facility] Anion Gap 8 4 - 15 mEq/L 01/30/2025 11:50 AM EDT [facility] Glucose 114(H) 70 - 100 mg/dL 01/30/2025 11:50 AM EDT [facility] Creatinine 0.77 0.60 - 1.10 mg/dL 01/30/2025 11:50 AM EDT [facility] eGFR (Male) >60 60 - 115 mL/min 01/30/2025 11:50 AM EDT [facility] BUN 13 9 - 23 mg/dL 01/30/2025 11:50 AM EDT [facility] Calcium 8.8 8.3 - 10.6 mg/dL 01/30/2025 11:50 AM EDT [facility] Albumin 3.8 3.2 - 4.8 g/dL 01/30/2025 11:50 AM EDT [facility] A/G Ratio 1.4 1.0 - 2.3 01/30/2025 11:50 AM EDT [facility] Total Bilirubin 0.4 0.2 - 1.0 mg/dL 01/30/2025 11:50 AM EDT [facility] AST 9(L) 13 - 40 U/L 01/30/2025 11:50 AM EDT [facility] Alkaline Phosphatase 59 46 - 116 IU/L 01/30/2025 11:50 AM EDT [facility] ALT 12 7 - 40 U/L 01/30/2025 11:50 AM EDT [facility] Lipase 22 12 - 53 U/L 01/30/2025 11:50 AM EDT [facility] Total Protein 6.6 5.7 - 8.2 g/dL 01/30/2025 11:50 AM EDT [facility] Blood Structure of right hand / Unknown Venipuncture / Unknown 01/30/2025 11:20 AM EDT 01/30/2025 11:28 AM EDT [facility] - 01/30/2025 11:50 AM EDT Calculation based on the Chronic Kidney Disease Epidemiology Collaboration (CKD- EPI) equation refit without adjustment for race. Devon Corbett MD LAB BLOOD ORDERABLES Final Re sult [facility] [address] [place] [address] * Lavender Top (01/30/2025 11:20 AM EDT) Extra Tube Auto resulted. 01/30/2025 3:22 PM EDT [facility] Comment:Hold for add-ons. Blood Structure of right hand / Unknown Venipuncture / Unknown 01/30/2025 11:20 AM EDT 01/30/2025 11:28 AM EDT us Devon Corbett MD LAB BLOOD ORDERABLES Final Re sult Performing Organization Address [facility] de Phone Number [facility] [address] [place] [address] * Red Top (01/30/2025 11:20 AM EDT) Extra Tube Auto resulted. 01/30/2025 3:22 PM EDT [facility] Comment:Hold for add-ons. Blood Structure of right hand / Unknown Venipuncture / Unknown 01/30/2025 11:20 AM EDT 01/30/2025 11:28 AM EDT Result Jonas Corbett MD LAB BLOOD ORDERABLES Final Re sult Performing Organization Address [facility] de Phone Number [facility] [address] [place] [address] * Light Blue Top (01/30/2025 11:20 AM EDT) Extra Tube Auto resulted. 01/30/2025 3:22 PM EDT [facility] Comment:Hold for add-ons. Blood Structure of right hand / Unknown Venipuncture / Unknown 01/30/2025 11:20 AM EDT 01/30/2025 11:28 AM EDT Result Jonas Corbett MD LAB BLOOD ORDERABLES Final Re sult Performing Organization Address [facility] Co de Phone Number [facility] [address] [place] [address] * Magnesium (01/30/2025 11:20 AM EDT) Pathologist [facility] Magnesium 1.8 1.6 - 2.6 mg/dL 01/30/2025 11:50 AM EDT [facility] Blood Structure of right hand / Unknown Venipuncture / Unknown 01/30/2025 11:20 AM EDT 01/30/2025 11:28 AM EDT us Devon Corbett MD LAB BLOOD ORDERABLES Final Re sult [facility] [address] [place] [address] * (ABNORMAL) Lipid profile, reflex direct LDL (01/30/2025 7:45 AM EDT) Pathologist [facility] Cholesterol 85 <200 mg/dL 01/30/2025 12:54 PM EDT [facility] Triglycerides 135 <150 mg/dL 01/30/2025 12:54 PM EDT [facility] HDL 24.4(L) >=60.0 mg/dL 01/30/2025 12:54 PM EDT [facility] LDL Calculated 34 0 - 100 mg/dL 01/30/2025 12:54 PM EDT [facility] Comment:LDL calculated using Friedwald equation Blood Venipuncture / Unknown 01/30/2025 7:45 AM EDT 01/30/2025 9:20 AM EDT us Kojo Escobedo NP LAB BLOOD ORDERABLES Final R esult [facility] [address] [place] [address] * TSH with reflex to Free T4 (01/30/2025 7:45 AM EDT) Pathologist [facility] TSH 1.256 0.550 - 4.780 uIU/mL 01/30/2025 12:54 PM EDT [facility] Blood Venipuncture / Unknown 01/30/2025 7:45 AM EDT 01/30/2025 9:20 AM EDT [facility] LAB BLOOD ORDERABLES Final R esult Performing Organization Address City/[facility]/ZIP Co de Phone Number [facility] [address] [place] [address] * (ABNORMAL) Hemoglobin A1c (01/30/2025 7:45 AM EDT) Hemoglobin A1C 6.4(H) 4.0 - 6.0 % 01/30/2025 10:29 AM EDT [facility] Estimated Average Glucose eAG 137.0(H) 85.0 - 126.0 mg/dL 01/30/2025 10:29 AM EDT [facility] Blood Venipuncture / Unknown 01/30/2025 7:45 AM EDT 01/30/2025 9:20 AM EDT [facility] LAB BLOOD ORDERABLES Final R esult Performing Organization Address City/[facility] Co de Phone Number [facility] [address] [place] [address] from Last [address] [facility] on file Advance Directives For more information, please contact: [phone] * Full Code (Latest Code Status on File) Date Activated Date Inactivated Comments 2024 4:14 PM 08/05/2024 9:37 PM * Full Code Date Activated Date Inactivated Comments 11/25/2016 5:28 PM 11/30/2016 8:30 PM Care Teams Lever Miller Relationship Specialty Start Date End Date Guru Sánchez MD [address] [place] [phone] PCP - General Behavioral Health 01/08/17 [place] [phone] 11/25/16
--- OUTSIDE RECORDS SUMMARY | 2025-02-09 16:51 | XMS_ITS | Clinical Summary ---
Author Organization [employer] Address [address] [place] [address] Care Team Providers Care Gas Leak Tester Name Role Phone Pcp, No Primary Care [...] 78 08/12/2020 4:30 AM EDT Temperature 36.9 C (98.4 F) 08/12/2020 12:50 AM EDT Respiratory Rate 16 08/12/2020 4:30 AM EDT [...] Vaccines Adult 08/01/1995 COVID-19 Vaccine (2 - 2024-2 6 season) 2024 08/11/2020 Influenza Vaccine (#1) 2024 HIB Vaccines Aged Out No longer eligi ble based on patient's age to complete this topic HPV Vaccines (No Doses Required) Completed Hepatitis A Vaccines Aged Out No long [...] complete this topic Insurance MANAGED MEDICARE GENERIC Member Subscriber Plan / Payer (Ef fective 2020-Present) Name:Charlie Rios Relation to Subscriber:Self Name:Charlie Rios Payer ID:[id number] (NAIC) Group ID:Not on file Type:Not on file Address: [place] [id number] Care Teams Gas Leak Tester Relationship Specialty Start Date End Date Pcp, No No PCP On File TORRES Sharma [id number] PCP - General 08/12/20
--- OUTSIDE RECORDS SUMMARY | 2025-02-09 16:51 | XMS_ITS | Encounter Summary ---
Author Organization [facility] Address [address] [place] [id number] Care Team Providers Care Head Of Cytogenetics Name Role Phone None, Pcp Primary Care Provider Unavailabl e None, Pcp Unavailable Unavailable [place] Khanna MD Primary Care Provider [phone] Trish Beckett MD Primary Care Provider [phone] Encounter Details Date Type Department Care Team (Late st Contact Info) Description 07/26/2014 Clinical Conversion Encounter [facility] Cardiology [address] [place] [address] Lilia Reynolds MD [address] [place] [address] Social History Tobacco Use Types Packs/Day Years Used Date Smoking Tobacco: Never Assessed Sex and Gender Information Value Date Recorded Sex Assigned at Male 01/14/2019 2:03 PM EDT Legal Sex Male 3:08 PM EDT Gender Identity Male 01/14/2019 2:03 PM EDT Sexual Orientation Not on file documented as of this encounter Consult Notes * Lilia Reynolds MD - 10/26/2014 6:33 AM EDT [facility] Name: LILIA HAYWOOD [facility] R # [id number] [facility] : [birth year] Age: 38 Sex: M DIS Shahla CONSULTATION REPORT Location: [facility] Room: [facility] Admit Date: 07/26/14 - 07/29/14 cc: Skye Daley MD _ DATE OF CONSULTATION: 07/26/2014 CARDIOLOGY CONSULTATION HISTORY OF PRESENT ILLNESS: A 38-year-old man admitted on 07/26/2014. He is admitted because of chest pain. He was discharged from [facility] earlier on July 26. He had been [...] fact that both the parents had ischemic [facility] Name: LILIA HAYWOOD [facility] MR # [id number] CONSULTATION continued Admit Date: 07/26/14 heart disease [...] tests are negative as they were at [facility]. Given the fact that he is immediately back in the hospital, we can do a stress test. If his troponin rises, would recommend he go for a cardiac catheterization. He is on reasonable medication. He has anemia which is not enough to give him the [facility] Name: LILIA HAYWOOD [facility] MR # [id number] CONSULTATION continued Admit Date: 07/26/14 symptoms, but might warrant looking into. I would not change his prehospital medications at this time. I will follow. Dictated by: Lilia Reynolds M.D. ELECTRONICALLY SIGNED 08/20/14 5917 T: ESCRIPT [id number] //ivnm// //add1// //add3// //add2// [id number] documented in this encounter Plan of Treatment [...] 145(H) 74 - 118 CONVERS ION FROM [facility] Comment:Resulted using [employer] POC Software 07/26/2014 8:47 PM EDT 07/26/2014 8:56 PM EDT Ayaan Torres MD POCT ORDERABLES - DEVICE Final Result Performing Organization Address City[facility] de Phone Number CONVERSION FROM [facility] * Troponin T (07/26/2014 7:46 PM EDT) Troponin T < 0.01 <0.03 ng/ml CONVERSION FROM [facility] Comment: Troponin-T: <0.03 ng/ml - Negative 0.03 to 0.09 ng/ml - Indeterminate >0.09 ng/ml - Positive for acute myocardial damage Blood specimen (specimen) 07/26/2014 7:46 PM EDT 07/26/2014 7:46 PM EDT Ayaan Torres MD LAB BLOOD ORDERABLES Fin al Result [facility]VERSION FROM [facility] * (ABNORMAL) POCT Glucose (07/26/2014 4:35 PM EDT) Glucose, POC 175(H) 74 - 118 CONVERS ION FROM [facility] Comment:Resulted using [employer] POC Software 07/26/2014 4:35 PM EDT 07/26/2014 4:43 PM EDT Ayaan Torres MD POCT ORDERABLES - DEVICE Final Result CONVERSION FROM [facility] * (ABNORMAL) Drug Screen/Comprehensive, Urine (07/26/2014 4:30 PM EDT) Ethanol, Urine NEGATIVE NEGATIVE CONVE RSION FROM [facility] Amphetamines, Urine NEGATIVE NEGATIVE CONVERSION FROM [facility] Barbiturates Screen, Urine POSITIVE(H) NEGATIVE CONVERSION FROM [facility] Benzodiazepine Screen, Urine NEGATIVE NEGATIVE CONVERSION FROM [facility] Cocaine Metabolism, Urine NEGATIVE NEGATIVE CONVERSION FROM [facility] Methadone Qual, Urine NEGATIVE NEGATIVE CONVERSION FROM [facility] Opiates Screen,Urine Random POSITIVE(H) NEGATIVE CONVERSION FROM [facility] Oxycontin Screen, Urine NEGATIVE NEGATIVE CONVERSION FROM [facility] PROPOXYPHENE-UR (Conversion) NEGATIVE NEGATIVE CONVERSION FROM [facility] Cannabinoids Screen, Urine NEGATIVE NEGATIVE CONVERSION FROM [facility] Buprenorphine,Uri ne NEGATIVE NEGATIVE CONVERSION FROM [facility] Creatinine, Random Urine 197.2 mg/dL CONVERSION FROM [facility] Urine specimen (specimen) 07/26/2014 4:30 PM EDT 07/26/2014 4:30 PM EDT Ayaan Torres MD URINE ORDERABLES Final R esult Performing Organization Address City/[facility] Co de Phone Number CONVERSION FROM [facility] * ECG 12 lead (07/26/2014 4:21 PM EDT) 07/26/2014 4:21 PM EDT Narrative CONVERSION FROM [facility] - 07/28/2014 9:45 AM EDT [facility] [facility]. Name: LILIA HAYWOOD MR # [id number] EKG REPORT PCP: SWAPNA CHATMAN Ord MD: Jc Inman M.D. : [birth year] Age: 38 Sex: M ADM Shahla Location: [place] [id number] Exam Date: 07/26/14 cc: Skye Daley William, [...] AM Referred By: Confirmed By:Lilia Reynolds M.D. Procedure Note Lilia Reynolds MD - 11/08/2014 [facility]. Name: LILIA HAYWOOD MR # [id number] EKG REPORT PCP: NO Ord MD: Jc Inman M.D. : [birth year] Age: 38 Sex:M ADMINo Location: [address] Exam Date: 07/26/14 cc: Skye Daley [...] AM Referred By: Confirmed By:Lilia Reynolds M.D. Jc Inman MD ECG ORDERABLES Final Result CONVERSION FROM [facility] * ECG 12 lead (07/26/2014 1:00 PM EDT) 07/26/2014 1:00 PM EDT Narrative CONVERSION FROM [facility] - 07/28/2014 9:42 AM EDT [facility] [employer] [facility]. Name: LILIA HAYWOOD MR # [id number] EKG REPORT PCP: NO Ord MD: Rian Sinclair M.D. : [birth year] Age: 38 Sex: M ADM Shahla Location: *[address] Exam Date: 07/26/14 cc: Skye Daley Jeffrey, [...] AM Referred By: Confirmed By:Lilia Reynolds M.D. Procedure Note Lilia Reynolds MD - 11/08/2014 [facility] Is That Odd [facility]. Name: LILIA HAYWOOD MR # [id number] EKG REPORT PCP: SWAPNA Baldwin MD: Rian Sinclair M.D. : [birth year] Age: 38 Sex:M ADMINo Location: [address] Exam Date: 07/26/14 cc: Skye Daley Jeffrey, [...] 07/28/2014 9:42:46 AM Referred By: Confirmed By:Lilia Arsenian, M.D. Rian Sinclair MD ECG ORDERABLES Final Resu lt CONVERSION FROM [facility] * XR Portable Chest 1 Vw (07/26/2014 12:49 PM EDT) Anatomical Region Laterality Modality Chest Radiographic Janna ging 07/26/2014 12:4 9 PM EDT Narrative 07/26/2014 12:49 PM EDT EXAM DESCRIPTION: CHEST PORTABLE FRONTAL VIEW CLINICAL [...] within lingular segment of left upper lobe. Rian Sinclair MD IMG DIAGNOSTIC IMAGING ORD ERABLES Final Result * ECG 12 lead (07/26/2014 12:02 PM EDT) 07/26/2014 12:0 2 PM EDT Narrative CONVERSION FROM [facility] - 07/28/2014 9:42 AM EDT [facility] [facility]. Name: LILIA HAYWOOD MR # [id number] EKG REPORT PCP: SWAPNA Baldwin MD: Rian Sinclair M.D. : [birth year] Age: 38 Sex: M ADM Shahla Location: *[address] Exam Date: 07/26/14 cc: Skye Daley Jeffrey, [...] Referred By: RONNIE Confirmed By:Lilia Reynolds M.D. Procedure Note Lilia Reynolds MD - 11/08/2014 [facility]. Name: LILIA HAYWOOD MR # [id number] EKG REPORT PCP: SWAPNA Baldwin MD: Rian Sinclair M.D. : [birth year] Age: 38 Sex:M ADMINo Location: *[address] Exam Date: 07/26/14 cc: Skye Daley Jeffrey, [...] Referred By: RONNIE Confirmed By:Lilia Reynolds M.D. us Rian Sinclair MD ECG ORDERABLES Final Resu lt CONVERSION FROM [facility] * (ABNORMAL) CBC and Differential (07/26/2014 11:55 AM EDT) WBC 6.8 3.8 - 10.5 K/ul CONVERSION FROM [facility] RBC 4.25 4.1 - 5.6 M/ul CONVERSION FROM [facility] Hemoglobin 10.7(L) 12.7 - 16.7 g/dl CONVERSION FROM [facility] Hematocrit 33.7(L) 38.1 - 50.1 % CONVERSION FROM [facility] MCV 79.3(L) 82 - 98 fl CONVERSIO N FROM [facility] MCH 25.2 25 - 35 pg CONVERSIO N FROM [facility] MCHC 31.8(L) 33 - 36 g/dl CONVERSION FROM [facility] RDW 18.7(H) 11.5 - 14.5 % CONVERSION FROM [facility] Platelet Count 306 150 - 450 K/ul CONVERSION FROM [facility] MPV 10.5 6 - 14 fl CONVERSION FROM [facility] Neutrophil 45(L) 50 - 70 % CONVERSIO N FROM [facility] Absolute Neutrophil Count 3.0 2.2 - 8.6 K/ul CONVERSION FROM [facility] Lymphocyte 38 25 - 40 % CONVERSIO N FROM [employer] Absolute Lymphocyte Count 2.6 1.5 - 4.0 K/ul CONVERSION FROM [facility] Monocyte 15(H) 4 - 12 % CONVERSION FROM [facility] Absolute Monocyte Count 1.0 0.16 - 1.26 K/ul CONVERSION FROM [facility] Eosinophil 2 0 - 3 % CONVERSIO N FROM [employer] Absolute Eosinophil Count 0.1(L) 0.15 - 0.30 K/ul CONVERSION FROM [facility] Basophil 0 0 - 2 % CONVERSION FROM [facility] Absolute Basophil Count 0.0 0.0 - 0.21 K/ul CONVERSION FROM [facility] Blood specimen (specimen) 07/26/2014 11:55 AM EDT 07/26/2014 12:09 PM EDT us Ayaan Torres MD LAB BLOOD ORDERABLES Fin al Result CONVERSION FROM [facility] * APTT (07/26/2014 11:55 AM EDT) PTT 26.2 22.5 - 35.5 SECONDS CONVERSION FROM [facility] Blood specimen (specimen) 07/26/2014 11:55 AM EDT 07/26/2014 12:09 PM EDT Ayaan Torres MD LAB BLOOD ORDERABLES Fin al Result CONVERSION FROM [facility] * ProTime-INR (07/26/2014 11:55 AM EDT) Prothrombin Time 13.0 12.2 - 14.2 SECONDS CONVERSION FROM [facility] INR 1.00 0.90 - 1.10 CONVERSI ON FROM [facility] Blood specimen (specimen) 07/26/2014 11:55 AM EDT 07/26/2014 12:09 PM EDT Ayaan Torres MD LAB BLOOD ORDERABLES Fin al Result Performing Organization Address [facility] de Phone Number CONVERSION FROM [facility] * LDL Cholesterol, Direct (07/26/2014 11:55 AM EDT) Direct LDL Cholesterol 85 <130 mg/dL CONVERSION FROM [facility] Blood specimen (specimen) 07/26/2014 11:55 AM EDT 07/26/2014 12:09 PM EDT Ayaan Torres MD LAB BLOOD ORDERABLES Fin al Result Performing Organization Address City/[facility]/ZIP Co de Phone Number CONVERSION FROM [facility] * (ABNORMAL) Lipid Panel (07/26/2014 11:55 AM EDT) Cholesterol 150 130 - 200 mg/dL CONVERSION FROM [facility] Triglycerides 351(H) <200 mg/dL CONVERSION FROM [facility] Comment: Use non-HDL cholesterol or Apolipoprotein B to monitor cardiovascular risk and cholesterol lowering therapy. HDL Cholesterol 29(L) 40 - 65 mg/dL CONVERSION FROM [facility] LDL Cholesterol TNP <130 mg/dl CONVERSION FROM [facility] Comment: NO CALCULATED LDL CAN BE PERFORMED WHEN TRIG >250. A DIRECT LDL HAS BEEN ORDERED. Non-HDL Cholesterol 121 <190 mg/dL CONVERSION FROM [facility] Comment: Normal primary Prevention <190 mg/dl High risk primary prevention <160 mg/dl Secondary prevention <130 mg/dl High risk secondary prevention <100 mg/dl VLDL Cholesterol TNP mg/dl CON VERSION FROM [facility] Comment:NO CALCULATED VLDL C AN BE PERFORMED WHEN TRIG >250. Coronary Risk Interpretation 5.2(H) 2.0 - 5.0 CONVERSION FROM [facility] Blood specimen (specimen) 07/26/2014 11:55 AM EDT 07/26/2014 12:09 PM EDT Ayaan Torres MD LAB BLOOD ORDERABLES Fin al Result Performing Organization Address City/[facility]/ZIP Co de Phone Number CONVERSION FROM [facility] * Troponin T (07/26/2014 11:55 AM EDT) Troponin T < 0.01 <0.03 ng/ml CONVERSION FROM [facility] Comment: Troponin-T: <0.03 ng/ml - Negative 0.03 to 0.09 ng/ml - Indeterminate >0.09 ng/ml - Positive for acute myocardial damage Blood specimen (specimen) 07/26/2014 11:55 AM EDT 07/26/2014 12:09 PM EDT Ayaan Torres MD LAB BLOOD ORDERABLES Fin al Result CONVERSION FROM [facility] * Basic Metabolic Panel (07/26/2014 11:55 AM EDT) Sodium 138 134 - 145 mmol/L CONVERSION FROM [facility] Potassium, Plasma 4.5 3.5 - 5.1 mmol/L CONVERSION FROM [facility] Chloride 103 96 - 108 mmol/L CONVERSION FROM [facility] Total CO2 22 22 - 32 mmol/L CONVERSION FROM [facility] Anion Gap 13 6 - 16 CONVERSION FROM [facility] Calcium 8.6 8.5 - 10.5 mg/dL CONVERSION FROM [facility] Glucose, Blood RANDOM CONVE RSION FROM [facility] Glucose, Blood 81 74 - 118 mg/dL CONVERSION FROM [facility] BUN 15 6 - 23 mg/dL CONVERSION FROM [facility] Creatinine 0.6 0.5 - 1.2 mg/dL CONVERSION FROM [facility] Glomerular Filtration Rate > 60 >60 ml/min CONVERSION FROM [facility] Result 25 6 - 25 RATIO CONVERSION FROM [facility] Hemolysis Normal CONVERSION FROM [facility] Blood specimen (specimen) 07/26/2014 11:55 AM EDT 07/26/2014 12:09 PM EDT Ayaan Torrse MD LAB BLOOD ORDERABLES Fin al Result Performing Organization Address City/State/[facility] Co de Phone Number CONVERSION FROM [facility] * Hemoglobin A1C (07/26/2014 11:00 AM EDT) Hemoglobin A1C 6.2 4.4 - 6.3 % CONVERSION FROM [facility] Estimated Average Glucose 131 mg/dl CONVERSION FROM [facility] Comment: The estimated average Glucose (eAG) is calculated as follows based on the recommendations of the [place] [employer]: eAG = (A1C x 28.7) - 46.7 Blood specimen (specimen) 07/26/2014 11:00 AM EDT 07/26/2014 2:57 PM EDT Ayaan Torres MD LAB BLOOD ORDERABLES Fin al Result Performing Organization Address [facility] de Phone Number CONVERSION FROM [facility] * POCT Glucose (07/26/2014 7:49 AM EDT) Glucose, POC 81 74 - 118 CONVERS ION FROM [facility] Comment:Resulted using [employer] POC Software 07/26/2014 7:49 AM EDT 07/26/2014 8:01 AM EDT Dylan Coe MD POCT ORDERABLES - DEVICE Final Result Performing Organization Address City[facility] de Phone Number CONVERSION FROM [facility] * (ABNORMAL) CBC and Differential (07/26/2014 6:00 AM EDT) WBC 5.5 3.8 - 10.5 K/ul CONVERSION FROM [facility] RBC 4.09(L) 4.1 - 5.6 M/ul CONVERSION FROM [facility] Hemoglobin 10.1(L) 12.7 - 16.7 g/dl CONVERSION FROM [facility] Hematocrit 31.9(L) 38.1 - 50.1 % CONVERSION FROM [facility] MCV 78.0(L) 82 - 98 fl CONVERSIO N FROM [facility] MCH 24.7(L) 25 - 35 pg CONVERSIO N FROM [facility] MCHC 31.7(L) 33 - 36 g/dl CONVERSION FROM [facility] RDW 18.0(H) 11.5 - 14.5 % CONVERSION FROM [facility] Platelet Count 293 150 - 450 K/ul CONVERSION FROM [facility] MPV 10.5 6 - 14 fl CONVERSION FROM [facility] Neutrophil 42(L) 50 - 70 % CONVERSIO N FROM [employer] Absolute Neutrophil Count 2.3 2.2 - 8.6 K/ul CONVERSION FROM [facility] Lymphocyte 42(H) 25 - 40 % CONVERSIO N FROM [employer] Absolute Lymphocyte Count 2.3 1.5 - 4.0 K/ul CONVERSION FROM [facility] Monocyte 12 4 - 12 % CONVERSION FROM [facility] Absolute Monocyte Count 0.7 0.16 - 1.26 K/ul CONVERSION FROM [facility] Eosinophil 3 0 - 3 % CONVERSIO N FROM [facility] Absolute Eosinophil Count 0.2 0.15 - 0.30 K/ul CONVERSION FROM [facility] Basophil 0 0 - 2 % CONVERSION FROM [facility] Absolute Basophil Count 0.0 0.0 - 0.21 K/ul CONVERSION FROM [facility] Neutrophil 0 % CONVERSIO N FROM [facility] Granulocytes(Ap heresis) 0 K/ul CONVERSION FROM [facility] Blood specimen (specimen) 07/26/2014 6:00 AM EDT 07/26/2014 7:15 AM EDT us Dylan Coe MD LAB BLOOD ORDERABLES Final Resu lt CONVERSION FROM [facility] * Basic Metabolic Panel (07/26/2014 6:00 AM EDT) Pathologist [facility] Sodium 139 134 - 145 mmol/L CONVERSION FROM [facility] Potassium, Plasma 4.3 3.5 - 5.1 mmol/L CONVERSION FROM [facility] Chloride 104 96 - 108 mmol/L CONVERSION FROM [facility] Total CO2 24 22 - 32 mmol/L CONVERSION FROM [facility] Anion Gap 11 6 - 16 CONVERSION FROM [facility] Calcium 8.7 8.5 - 10.5 mg/dL CONVERSION FROM [facility] Glucose, Blood 86 74 - 118 mg/dL CONVERSION FROM [facility] BUN 14 6 - 23 mg/dL CONVERSION FROM [facility] Creatinine 0.7 0.5 - 1.2 mg/dL CONVERSION FROM [facility] Glomerular Filtration Rate > 60 >60 ml/min CONVERSION FROM [facility] Result 20 6 - 25 RATIO CONVERSION FROM [facility] Hemolysis Normal CONVERSION FROM [facility] Blood specimen (specimen) 07/26/2014 6:00 AM EDT 07/26/2014 7:15 AM EDT us Dylan Coe MD LAB BLOOD ORDERABLES Final Resu lt CONVERSION FROM [facility] documented in this encounter Visit Diagnoses Not on filedocumented in this encounter Care Teams Head Of Cytogenetics Relationship Specialty Start Date End Date None, MD Baldemar PCP - General 07/28/14 01/13/19 South Khanna MD [address] [place] [id number] PCP - General 01/14/19 03/05/20 Trish Beckett MD [address] [place] [address] PCP - General 03/06/20 None, MD [place]emar 07/28/14 documented as of this encounter
--- OUTSIDE RECORDS SUMMARY | 2025-02-09 16:51 | XMS_ITS | Clinical Summary ---
Author Organization [facility] Address [address] [place] [address] Phone Care Team Providers Care Steward/Stewardess Banquet Name Role Phone Pcp-Confirmed, No Primary Care Provider Unavaila ble Allergies Active Allergy Reactions Criticality Noted Date Comments Aspirin Unknown 11/16/2016 Ibuprofen Hives High 11/18/2013 Nitroglycerin Hives High 04/16/2014 Penicillins Hives High 11/18/2013 amoxacillin Acetaminophen Hives High 11/18/2013 Venom-Honey Bee Swelling Medium 04/24/2014 Medications aspirin 81 mg tablet Take 81 mg by mouth daily. Active tamsulosin (FLOMAX) 0.4 mg Cp24 Take 0.4 mg by mouth daily. Active traZODone (DESYREL) 300 MG tablet Take 150 mg by mouth nightly. Active metFORMIN (GLUMETZA) 500 MG (MOD) 24 hr tablet Take 1 tablet (500 mg total) by mouth 2 (two) times a day with meals. 28 tablet 0 04/25/2014 Active gabapentin (NEURONTIN) 300 MG capsule Take 3 capsules (900 mg total) by mouth 3 (three) times a day. 21 capsule 0 04/25/2014 Active doxazosin (CARDURA) 2 MG tablet Take 1 tablet (2 mg total) by mouth nightly. 14 tablet 0 04/25/2014 Active docusate (COLACE) 100 MG capsule Take 1 capsule (100 mg total) by mouth 2 (two) times a day as needed for constipation. 20 capsule 0 04/25/2014 Active meTOProlol tartrate (LOPRESSOR) 25 mg tablet Take 25 mg by mouth 2 (two) times a day. Reported med. Will see PCP this week Active lisinopril (PRINIVIL,ZESTR IL) 20 MG tablet Take 2.5 mg by mouth daily. Patient reports he is on this medication- re-entered for reported meds Active clopidogrel (PLAVIX) 300 mg Tab Take 75 mg by mouth daily. Active pantoprazole (PROTONIX) 40 MG tablet Take 40 mg by mouth daily. Active atorvastatin (LIPITOR) 40 mg tablet Take 40 mg by mouth daily. Active clonazePAM (KLONOPIN) 1 MG tablet Take 1 mg by mouth 3 (three) times a day as needed for anxiety. Active lithium 300 MG capsule Take 900 mg by mouth nightly. Active hydrOXYzine (ATARAX) 25 mg tablet Take 25 mg by mouth 3 (three) times a day. Active divalproex [address] tablet Take 2 tablets (1,000 mg total) by mouth 2 (two) times a day. 40 tablet 04/20/2016 Active QUEtiapine (SEROQUEL) 100 MG tablet Take 3 tablets (300 mg total) by mouth nightly. 14 tablet 04/20/2016 Active Active Problems Patient Care Coordination No te Formatting of this note migh t be different from the original. 38 year old male with pmh HTN, asthma, DIMITRIS on cpap, CAD s/p RI with stents to his RCA, HL, DM, GERD, bipolar d/o, schizophrenia, anxiety and PTSD presents to ED with sharp left sided chest pain radiating down left arm x1 hour. He also reported N/V. In the ED pt appears comfortable, but c/o active chest pain that is not reproducible. Vitals stable. Labs unremarkable, Trop Neg, no ischemic changes noted on ECG. CXR negative. Admitted for chest pain rule out. Problem Noted Date Diagnosed Date Chest pain 04/16/2014 Assessment & Plan (04/16/2014 1:18 PM EST): Pt with hx of RI s/p stent in RCA, p/w left sided [...] Trop at 4PM - monitor on tele Schizophrenia ([facility]) 04/16/2014 Assessment & Plan (04/16/2014 4:09 PM EST): - Pt with significant psych hx including schophrenia, Bipolar disorder, Anxiety, PTSD, and sucidal ideation w/ plan. - Pt w/ recent ED Obs course with similar presentation of cp and had SI w/ plan. [facility] was consulted at that point and was [...] the past 2-3 months and was at [facility] from where he was transferred to [facility]. He signed out AMA this morning to come to the ED for his chest pain. At this point, it seems unlikely pt will do harm to himself or others while in the hospital. - Will consult Psych for input Hypertension 04/16/2014 Assessment & Plan (04/16/2014 3:55 PM EST): Per [facility] in [place], pt taking Lisinopril 20mg daily, Metoprolol 75mg BID, Isosorbide Dinitrite 10mg TID, Amlodipine 5mg daily, and HCTZ 12.5mg daily. - Pt normotensive on the floor, and has not taken his morning meds - given stable bp, will hold all of his meds at this time, will start with BB or Acei if becomes hypertensive Immunizations Immunization Administration Dates Next Due Pneumococcal polysaccharide vaccine 23-valent => 3 yo SQ/IM 02/15/2011 Social History Tobacco Use Types Packs/Day Years Used Date Smoking Tobacco: Never Smokeless Tobacco: Never Comments:Smoking History:Nev er smoker Alcohol Use Standard Drinks/Week Comments No 0 (1 standard drink = 0.6 oz pur e alcohol) Housing Answer Date Recorded No 04/24/2019 Sex and Gender Information Value Date Recorded Sex Assigned at Male 07/25/2024 11:26 AM EDT Legal Sex Male 10:25 PM EDT Gender Identity Male 12/23/2024 12:42 AM EDT Sexual Orientation Straight 12/23/2024 12 :42 AM EDT Last Filed Vital Signs Vital Sign Reading Time Taken Comments Blood Pressure 105/68 07/25/2024 5:00 PM EDT Pulse 82 07/25/2024 5:00 PM EDT Temperature 36.1 C (97 F) 07/25/2024 5:00 PM EDT Respiratory Rate 18 07/25/2024 5:00 PM EDT Oxygen Saturation 97% 07/25/2024 5:00 PM EDT Inhaled Oxygen Concentration - - Weight 123.4 kg (272 lb) 07/25/2024 5:00 PM EDT Height 177.8 cm (5' 10 ) 06/22/2023 1:01 AM EDT Body Mass Index 39.03 06/22/2023 1:01 AM EDT Plan of Treatment Health Maintenance Due Date Last Done Comments HIV Lifetime Screening 1975 Hepatitis B Lifetime Screening 1975 Hepatitis C Antibody Lifetime Screening 1976 THRIVE SCREENING 1976 Oral Health Screen 1976 HEIP Disability Screen 1981 BEHAVIORAL HEALTH SCREEN 1988 Psych Substance Use Screen 1988 DTAP/TDAP VACCINE (1 - Tdap) 08/01/1995 Colonoscopy FOBT- Positive 2021 Colonoscopy 2021 Colorectal Cancer Screening 2021 FOBT 2021 Sigmoidoscopy 2021 Diabetes Screening 06/16/2024 06/17/2023, 0 06/10/2023, 04/17/2014, Additional history exists LIPID PANEL 07/12/2024 07/13/2023, 03/0 06/2023, 10/18/2011 COVID-19 Vaccine ( season) 2024 08/11/2020, 06/07/2020 INFLUENZA VACCINE (#1) 2024 1, 01/02/2020, 12/12/2018, Additional history exists Zoster Vaccine (1 of 2) 2026 Pneumonia Vaccine 0-49 Years Aged Out 02/15/2011 No longer eligible based on patient's age to complete this topic Pneumonia Vaccine 50+ Discontinued 02/15/2011 HPV VACCINES Aged Out No longer eligi ble based on patient's age to complete this topic IPV VACCINES Aged Out No longer eligi ble based on patient's age to complete this topic MENINGOCOCCAL B Aged Out No longer el igible based on patient's age to complete this topic ROTAVIRUS VACCINES Aged Out No longer eligible based on patient's age to complete this topic Procedures Procedure Name Priority Date/Time Associated Diagnosis Comments LIPID PANEL (HISTORICAL) Routine 07/13/2023 12:15 PM EDT HEMOGLOBIN A1C Routine 06/17/2023 11:50 AM EDT from Last 3 Months or Most Recently Relevant to Health Maintenance Results * (ABNORMAL) Lipid Panel (Historical) (07/13/2023 12:15 PM EDT) Cholesterol [Mass/volume] in Serum or Plasma 88 <200 mg/dL CONV - [facility] Cholesterol in HDL [Mass/volume] in Serum or Plasma 33(L) > or = 40 mg/dL [facility]V - [facility] Triglyceride [Mass/volume] in Serum or Plasma 274(H) <150 mg/dL CONV - [facility] Comment:If a non-fasting spe cimen was collected, consider repeat triglyceride testing on a fasting specimen if clinically indicated. Adriana et al. J. of Clin. Lipidol. 2015;9:129-169. Cholesterol in LDL [Mass/volume] in Serum or Plasma by calculation 23 mg/dL_(maggie c) CONV - [facility] Cholesterol.total /Cholesterol in HDL [Mass Ratio] in Serum or Plasma 2.7 <5.0 (calc) CONV - [facility] Cholesterol non HDL [Mass/volume] in Serum or Plasma 55 <130 mg/dL_(maggie c) CONV - [facility] Comment:For patients with di abetes plus 1 major ASCVD risk factor, treating to a non-HDL-C goal of <100 mg/dL (LDL-C of <70 mg/dL) is considered a therapeutic option. 07/13/2023 12:1 5 PM EDT 07/13/2023 12:15 PM EDT Narrative [facility] TRAN - 07/13/2023 12:15 PM EDT Reference range: <100 Desirable range <100 mg/dL for primary prevention; <70 mg/dL for patients with CHD or diabetic patients with > or = 2 CHD risk factors. LDL-C is now calculated using the Brenda calculation, which is a validated novel method providing better accuracy than the Friedewald equation in the estimation of LDL- C. Colton SS et al. NO. 2013;310(19): 6928-7863 (http://education.[employer]/faq/MAO990) Historical Project [facility] Provider LAB BLOOD ALISSA SAMS Edited Result - Final [facility] * (ABNORMAL) Hemoglobin a1c (06/17/2023 11:50 AM EDT) Hemoglobin A1C 6.7(H) 4.3 - 5.9 Specialized Tech Comment: The [place] [employer] recommends the following: Non-Diabetic <5.7% Prediabetes 5.7 6.4% Diabetes >/= 6.5% Estimated Average Glucose 146 mg/dl Specialized Tech 06/17/2023 11:5 0 AM EDT 06/17/2023 11:58 AM EDT Eunice Jett MD LAB BLOOD ORDERABLES Final Result [facility] from Last 3 Months or Most Recently Relevant to Health Maintenance Advance Directives For more information, please contact: [phone] (Available ) * Full Code (Latest Code Status on File) Date Activated Date Inactivated Comments 04/20/2016 9:03 AM 04/20/2016 12:49 PM Question Answer Comments Does patient have MOLST form? No Reviewed with patient? No * Full Code Date Activated Date Inactivated Comments 04/20/2016 6:56 AM 04/20/2016 9:03 AM Question Answer Comments Does patient have MOLST form? No Reviewed with patient? No * Full Code Date Activated Date Inactivated Comments 04/16/2014 3:48 PM 04/17/2014 3:49 PM Question Answer Comments Does patient have MOLST form? No Reviewed with patient? No Care Teams Steward/Stewardess Banquet Relationship Specialty Start Date End Date Pcp-Confirmed, No PCP - General 03/21/17
--- OUTSIDE RECORDS SUMMARY | 2025-02-09 16:51 | XMS_ITS | Encounter Summary ---
Author Organization [facility] Address [address] [place] [id number] Care Team Providers Care Barbering Instructor Name Role Phone None, Pcp Primary Care Provider Unavailabl e None, Pcp Unavailable Unavailable South Khanna MD Primary Care Provider [phone] Trish Beckett MD Primary Care Provider [phone] Encounter Details Date Type Department Care Team (Late st Contact Info) Description 07/26/2014 Clinical Conversion Encounter Department of Cardiology [facility] [address] [place] [id number] Dylan Coe MD [address] [place] [address] Social History Tobacco Use Types Packs/Day Years Used Date Smoking Tobacco: Never Assessed Sex and Gender Information Value Date Recorded Sex Assigned at Male 01/14/2019 2:03 PM EDT Legal Sex Male 3:08 PM EDT Gender Identity Male 01/14/2019 2:03 PM EDT Sexual Orientation Not on file documented as of this encounter Discharge Summaries * Dylan Coe MD - 10/26/2014 6:33 AM EDT [facility] Name: [facility] R # [id number] [facility] : [birth year] Age: 38 Sex: M DIS Shahal DISCHARGE SUMMARY Location: Room: [facility] Admit Date: 07/25/14 Disch Date: 07/26/14 cc: Dylan Coe MD NO MD _ DATE OF DISCHARGE: 07/26/2014 DISCHARGE DIAGNOSES: [...] The patient says that he had an VT in 2008 and had a stent placed [...] came out of the train going to [place] at a station and complained of severe [...] a colonoscopy 6 years ago which was [facility] Name: [facility] MR # [id number] [facility] D/C Date: 07/26/14 DISCHARGE SUMMARY continued clean. [...] past as well. The last time Dr. eTjeda had got in touch with his real estate consultant and apparently he has had cardiac catheterization on 9 occasions, last one being as late as February of last year and at that time, it was nonobstructive coronary artery disease. Dictated by: Dylan Coe MD ELECTRONICALLY SIGNED 07/30/14 1507 T: ESCRIPT 1011 [id number] //ivnm// //add1// //add3// //add2// [id number] documented in this encounter Progress Notes * Dylan Coe MD - 11/24/2014 7:51 AM EDT [facility] Name: [facility] MR # [id number] : [birth year] Age: 38 Sex: M PROGRESS NOTE ADM IN Location: Room: [facility] cc: Dylan Coe MD -- [...] Pulse Ox 98 07/25 0911 B/P 117/76 07/25 0911 O2 Flow Rate 2 07/25 0911 Pulse 77 07/25 09 Resp 18 07/25 0911 07/25 0700 Intake Total Output Total Balance General Appearance Alert, Oriented X3, Cooperative, No Acute Distress Lungs Clear to Auscultation Neck No JVD Cardiovascular Regular Rate, Normal S1, Normal S2 Abdomen Normal Bowel Sounds, Soft, No Tenderness, No Hepatospenomegaly, refused rectal exam Extremities No Edema Neurological Normal Speech Results LAB/KEVIN & RAD Laboratory Tests 07/24 07/25 1754 1312 Hematology WBC (3.8 - 10.5 K/ul) 6.1 Hgb (12.7 - 16.7 g/dl) 10.9 10.7 Hct (38.1 - 50.1 %) 33.8 34.4 Plt Count (150 - 450 K/ul) 297 Laboratory Tests 07/24 1754 Coagulation PT (12.2 - 14.2 SECONDS) 13.9 PTT (22.5 - 35.5 SECONDS) 27.6 Laboratory Tests 07/24 07/24 07/25 07/25 07/25 1754 1754 0237 0708 1000 Chemistry Sodium (134 [...] Rel Value (25 - 40 %) 38 Towns Rel Value (4 - 12 %) 10 [...] Coe MD - 11/16/2014 9:49 AM EDT [facility] Name: [facility] MR # [id number] [facility] : [birth year] Age: 38 Sex: M ADM Shahla PATIENT CARE REFERRAL PAGE 1 Location: Room: [facility] Admit Date: 07/25/14 - cc: [...] on filedocumented in this encounter Care Teams Barbering Instructor Relationship Specialty Start Date End Date None, MD Baldemar PCP - General 07/28/14 01/13/19 South Khanna MD [address] [place] [address] PCP - General 01/14/19 03/05/20 Trish Beckett MD [address] [place] [address] PCP - General 03/06/20 None, Pcp, MD 07/28/14 documented as of this encounter
--- OUTSIDE RECORDS SUMMARY | 2025-02-09 16:51 | XMS_ITS | Clinical Summary ---
Author Organization [facility] Address [address] [place] [address] Phone Care Team Providers Care Non Emergency Services Ambulance Driver Name Role Phone Physician, No Pcp Primary Care Provider Unavaila ble Allergies Active Allergy Reactions Criticality Noted Date Comments Amoxicillin High 01/01/2022 Aspirin Anaphylaxis High 12/31/2021 Ibuprofen High 01/01/2022 Nitroglycerin Anaphylaxis High 12/31/2021 Poultry Unknown 10/06/2024 Pt states can't eat chicken or turkey, can eat beef Acetaminophen Anaphylaxis,Hives High 01/01/2022 Medications lisinopriL (PRINIVIL,ZESTRIL) 5 mg tablet Take 2 tablets (10 mg total) by mouth 1 (one) time each day. Active pantoprazole (PROTONIX) 40 mg EC tablet Take 1 tablet (40 mg total) by mouth 1 (one) time each day before breakfast. Do not crush, chew, or split. Active traZODone (DESYREL) 100 mg tablet Take 200 mg by mouth at bedtime. Last filled per [facility] 09/29 Active buPROPion XL (WELLBUTRIN XL) 300 [...] Active atorvastatin (LIPITOR) 80 mg tablet Take 40 mg by mouth at bedtime. Active albuterol HFA (PROAIR HFA ; PROVENTIL HFA ; VENTOLIN HFA) 90 mcg/actuation inhaler Inhale 2 puffs by mouth Every 4 hours as needed for shortness of breath. 11/19/19 Active ARIPiprazole (ABILIFY) 5 mg tablet Take 1 tablet (5 mg total) by mouth 1 (one) time each day. 06/20/19 Active benztropine (COGENTIN) 1 mg tablet Take 1 tablet (1 mg total) by mouth 1 (one) time each day. Active carbidopa-levodopa (SINEMET) 25-250 mg per tablet Take 1 tablet by mouth 3 times daily. 05/20/19 Active divalproex (DEPAKOTE ER) 500 mg 24 hr tablet Take 2 tablets (1,000 mg total) by mouth 1 (one) time each day. Active ferrous gluconate (FERGON) 324 mg (37.5 mg iron) tablet Take 1 tablet (324 mg total) by mouth 1 (one) time each day. 03/11/20 Active furosemide (LASIX) 40 mg tablet Take 0.5 tablets (20 mg total) by mouth daily. 01/22/20 Active metoprolol tartrate (LOPRESSOR) 25 mg tablet Take 2 tablets (50 mg total) by mouth 2 times daily. 06/19/19 Active potassium chloride (KLOR-CON M20) 20 mEq CR tablet Take 1 tablet (20 mEq total) by mouth 1 (one) time each day. 01/22/20 Active primidone (MYSOLINE) 50 mg tablet Take 1 tablet (50 mg total) by mouth daily. 01/17/20 Active sertraline (ZOLOFT) 100 mg tablet Take 1 tablet (100 mg total) by mouth daily. 01/10/20 Active tiotropium (Spiriva Respimat) 1.25 mcg/actuation inhalation spray Inhale 2 puffs by mouth daily. 02/25/20 Active buPROPion (WELLBUTRIN) 75 mg tablet Take [...] by mouth 2 times daily. 05/20/19 Active insulin detemir (LEVEMIR) 100 unit/mL [...] mouth 2 (two) times a day. Active escitalopram (LEXAPRO) 10 mg tablet Take 1 tablet (10 mg total) by mouth 1 (one) time each day. Active fluticasone propionate (FLONASE) 50 mcg/actuation nasal spray Administer 1 spray into each nostril 1 (one) time each day. Shake gently. Before first use, prime pump. After use, clean tip and replace cap. Active clopidogreL (PLAVIX) 75 mg tablet Take 1 tablet (75 mg total) by mouth 1 (one) time each day. Active hydrOXYzine HCL (ATARAX) 25 mg tablet Take 1 tablet (25 mg total) by mouth 3 (three) times a day. Active lithium 600 mg capsule Take 1 capsule (600 mg total) by mouth 2 (two) times a day with meals. Active cyanocobalamin (VITAMIN B-12) 1,000 mcg tablet Take 1 tablet (1,000 mcg total) by mouth 1 (one) time each day. Active QUEtiapine (SEROquel) 400 mg tablet Take 1 tablet (400 mg total) by mouth at bedtime. Active amLODIPine (NORVASC) 5 mg tablet Take 1 tablet (5 mg total) by mouth 1 (one) time each day. 01/22/20 21 025 Active Problems Problem Noted Date Diagnosed Date Chest pain, unspecified type 01/02/2022 Chest pain 01/01/2022 Schizophrenia ([facility] V24, [facility] V28) 022 Bipolar 1 disorder ([facility] V24, [facility] V28) CAD (coronary artery disease) 01/01/2022 Surgical History Surgery Date Site/Laterality Comments CORONARY ANGIOPLASTY WITH ST ENT PLACEMENT 04/09/1999 - 04/08/2000 GASTRIC BYPASS Medical History Medical History Date Comments Hypertension Diabetes mellitus ([facility] V24, [facility] V28) HLD (hyperlipidemia) DIMITRIS (obstructive sleep apnea) Myocardial infarction ([facility] V24, [facility] V28) x4 Bipolar disorder ([facility] V24, [facility] V28) Schizophrenia ([facility] V24, [facility] V28) PTSD (post-traumatic stress disorder) Morbid obesity ([facility] V24, [facility] V28) A-fib ([facility] V24, [facility] V28) Pulmonary embolism ([facility] V24, [facility] V28) 20 20 Family History Medical History Relation Name Comments [...] Sign Reading Time Taken Comments Blood Pressure 128/68 10/06/2024 9:39 AM EDT Pulse 67 10/06/2024 9:39 AM EDT Temperature 36.7 C (98 F) 10/06/2024 9:39 AM EDT Respiratory Rate 18 10/06/2024 9:39 AM EDT Oxygen Saturation 96% 10/06/2024 9:39 AM EDT Inhaled Oxygen Concentration - - Weight 122 kg (270 lb) 10/03/2024 9:45 PM EDT Height 177.8 cm (5' 10 ) 10/03/2024 9:45 PM EDT Body Mass Index 38.74 10/03/2024 9:45 PM EDT Plan of Treatment Health Maintenance Due Date Last Done Comments Colorectal Cancer Screening: Colonoscopy 1976 Diabetes: Annual Foot Exam 1986 Diabetes: Annual Retina Eye Exam 1986 DTaP,Tdap,and Td Vaccines (1 - Tdap) 08/01/1995 Hepatitis B Vaccines (1 of 3 - 19+ 3-dose series) 08/01/1995 Pneumococcal Vaccine: Pediatrics (0 to 5 Years) and At-Risk Patients (6 to 49 Years) (2 of 2 - PCV) 01/12/2018 01/12/2017, 02/19/2016, 09/01/2013, Additional history exists Medicare Annual Wellness Visit 12/31/2021 Social Influencers of Health Screening 12/31/2021 Diabetes: Annual Urine Albumin-Creatinine Ratio (uACR) 03/29/2022 Depression Screening 04/09/2024 COVID-19 Vaccine ( season) 2024 03/30/2021, 08/20/2020, 06/07/2020 Influenza Vaccine (#1) 2024 , 01/02/2020, 12/12/2018, Additional history exists Diabetes: Blood Sugar Control Test (HGBA1C) 01/31/2025 08/01/2024, 04/03/2024, 03/23/2024, Additional history exists Diabetes: Annual GFR (Glomerular Filtration Rate) 10/03/2025 10/03/2024, 08/13/2024, 08/07/2024, Additional history exists Hypertension/CHF/CAD Annual BMP Blood Test 10/03/2025 10/03/2024, 08/13/2024, 08/07/2024, Additional history exists Cholesterol Screening (Lipid Panel) 08/01/2029 08/01/2024, 03/23/2024, 03/23/2024, Additional history exists RSV Immunization Adult Patients (1 - 1-dose 75+ series) 08/01/2051 HIV Screening Completed 03/16/2023 Hepatitis C Screening [...] age to complete this topic Meningococcal B Vaccine Aged Out No l onger eligible based on patient's age to complete this topic RSV Immunization Patients Under 20 months Aged Out No longer eligible based on patient's age to complete this topic Varicella Vaccines Aged Out No longer eligible based on patient's age to complete this topic Procedures Procedure Name Priority Date/Time Associated Diagnosis Comments COMPREHENSIVE METABOLIC PANEL STAT 10/03/2024 10:13 PM EDT from Last 3 Months or Most Recently Relevant to Health Maintenance Results * (ABNORMAL) Comprehensive metabolic panel (10/03/2024 10:13 PM EDT) Sodium 140 133 - 145 mmol/L LAB CHEMISTRY METHOD 10/03/2024 11:10 PM EDT [facility] Potassium 3.9 3.5 - 5.5 mmol/L LAB CHEMISTRY METHOD 10/03/2024 11:10 PM EDT [facility] Chloride 109 96 - 110 mmol/L LAB CHEMISTRY METHOD 10/03/2024 11:10 PM [facility] CO2 24 21 - 32 mmol/L LAB CHEMISTRY METHOD 10/03/2024 11:10 PM [facility] Anion Gap 7 3 - 11 LAB CHEMISTRY METHOD 10/03/2024 11:10 PM [facility] Glucose 114(H) 70 - 100 mg/dL LAB CHEMISTRY METHOD 10/03/2024 11:10 PM [facility] BUN 14 5 - 25 mg/dL LAB CHEMISTRY METHOD 10/03/2024 11:10 PM [facility] Creatinine 0.73 0.70 - 1.30 mg/dL LAB CHEMISTRY METHOD 10/03/2024 11:10 PM [facility] eGFR 112 >=60 mL/min/1. 73m2 LAB CHEMISTRY METHOD 10/03/2024 11:10 PM [facility] Comment:Calculation based on the Chronic Kidney Disease Epidemiology Collaboration (CKD-EPI) equation refit without adjustment for race. BUN/Creatinine Ratio 19.2 LAB CHEMISTRY METHOD 10/03/2024 11:10 PM [facility] Calcium 8.8 8.5 - 10.5 mg/dL LAB CHEMISTRY METHOD 10/03/2024 11:10 PM [facility] AST (SGOT) 14 10 - 42 unit/L LAB CHEMISTRY METHOD 10/03/2024 11:10 PM [facility] ALT (SGPT) 14 10 - 60 unit/L LAB CHEMISTRY METHOD 10/03/2024 11:10 PM [facility] Alkaline Phosphatase 71 42 - 121 unit/L LAB CHEMISTRY METHOD 10/03/2024 11:10 PM [facility] Total Protein 7.1 6.0 - 8.0 g/dL LAB CHEMISTRY METHOD 10/03/2024 11:10 PM [facility] Albumin 3.7 3.2 - 5.0 g/dL LAB CHEMISTRY METHOD 10/03/2024 11:10 PM EDT [facility] Total Bilirubin 0.4 0.0 - 1.4 mg/dL LAB CHEMISTRY METHOD 10/03/2024 11:10 PM EDT [facility] Blood Venous blood specimen / Unknown Venipuncture / Unknown 10/03/2024 10:13 PM EDT 10/03/2024 10:46 PM EDT us Lio Neal MD LAB BLOOD ORDERABLES Final Result [facility] ([facility]) [facility] [address] [place] [address], [place] [phone] from Last 3 Months or Most Recently Relevant to Health Maintenance Insurance [facility] MEDICARE Member Subscriber Plan / Payer (Ef fective 2014-Present) Name:CHARLIE RIOS Relation to Subscriber:Self Name:Charlie Rios Payer ID:[id number] Group ID:[id number] Type:Not on file Address: [place] [address] [place] [id number] Advance Directives * Full Code - Default [...] currently active code status orders. Care Teams Non Emergency Services Ambulance Driver Relationship Specialty Start Date End Date Physician, No Pcp PCP - General 01/25/24
--- OUTSIDE RECORDS SUMMARY | 2025-02-09 16:51 | XMS_ITS | Encounter Summary ---
Author Organization [facility] [address] [place] [address] Care Team Providers Care Lei Maker Name Role Phone Pcp, No Unavailable Unavailable Guru Sánchez MD Primary Care Provider [phone] Encounter Details Date Type Department Care Team (Late st Contact Info) Description 04/08/2021 Lab Requisition [address] [id number] Mariam Gallegos, ALEC [address] [place] [id number] Illness, unspecified Social History Tobacco Use Types [...] Procedure Name Priority Date/Time Associated Diagnosis Comments VITAMIN D 25 HYDROXY Routine 04/08/2021 6:54 AM EST Illness, unspecified TSH WITH REFLEX TO FREE T4 Routine 04/08/2021 6:54 AM EST Illness, unspecified HEMOGLOBIN A1C Routine 04/08/2021 6:54 AM EST Illness, unspecified VALPROIC ACID FREE LEVEL Routine 04/08/2021 6:54 AM EST Illness, unspecified COMPREHENSIVE METABOLIC PANEL Routine 04/08/2021 6:54 AM EST Illness, unspecified documented in this encounter Results * (ABNORMAL) Vitamin D 25 Hydroxy (04/08/2021 6:54 AM EST) Vit D, 25-Hydroxy 28.0(L) 30.0 - 100.0 ng/mL 04/08/2021 8:37 AM EST [facility] Blood specimen (specimen) Venipuncture / Unknown 04/08/2021 6:54 AM EST 04/08/2021 7:51 AM EST Narrative [facility] - 04/08/2021 8:37 AM EST Vitamin D Reference Ranges: Normal 30-100 ng/mL (Pediatric 20-100) Insufficient 20-30 ng/mL Deficient <20 ng/mL Potentially Toxic >150 ng/mL Reference range has been changed as of 01/06/2020. Mariam Gallegos COILED COIL INSPECTOR LAB BLOOD ORDERABLES Final Re sult Performing Organization Address City/[facility] Co de Phone Number [facility] [address] [place] [phone] * TSH with reflex to Free T4 (04/08/2021 6:54 AM EST) TSH 3.758 0.340 - 4.820 uIU/mL 04/08/2021 8:37 AM EST [facility] Blood specimen (specimen) Venipuncture / Unknown 04/08/2021 6:54 AM EST 04/08/2021 7:51 AM EST Narrative [facility] - 04/08/2021 8:37 AM EST Reference range has been changed as of 01/06/2020. Mariam Gallegos COILED COIL INSPECTOR LAB BLOOD ORDERABLES Final Re sult Performing Organization Address City/State/[facility] Co de Phone Number [facility] [address] [place] [address] * Hemoglobin A1c (04/08/2021 6:54 AM EST) Hemoglobin A1C 6.0 4.0 - 6.0 % 04/08/2021 9:18 AM EST [facility] Estimated Average Glucose eAG 125.5 85.0 - 126.0 mg/dL 04/08/2021 9:18 AM EST [facility] Blood specimen (specimen) 04/08/2021 6:54 AM EST 04/08/2021 7:51 AM EST Mariam Gallegos LAB BLOOD ORDERABLES Final Nila rodriguez Performing Organization Address [facility] Co de Phone Number [facility] [address] [place] [address] * (ABNORMAL) Comprehensive metabolic panel (04/08/2021 6:54 AM EST) [facility] Sodium 139 136 - 145 mEq/L 04/08/2021 8:41 AM EST [facility] Potassium 4.5 3.5 - 5.1 mEq/L 04/08/2021 8:41 AM EST [facility] Chloride 107 98 - 107 mEq/L 04/08/2021 8:41 AM EST [facility] CO2 28 20 - 31 mEq/L 04/08/2021 8:41 AM EST [facility] Anion Gap 4 4 - 15 mEq/L 04/08/2021 8:41 AM EST [facility] Glucose 81 70 - 100 mg/dL 04/08/2021 8:41 AM EST [facility] Creatinine 0.63 0.60 - 1.10 mg/dL 04/08/2021 8:41 AM EST [facility] eGFR >60 60 - 115 mL/min 04/08/2021 8:41 AM EST [facility] BUN 10 9 - 23 mg/dL 04/08/2021 8:41 AM EST [facility] Calcium 9.1 8.7 - 10.4 mg/dL 04/08/2021 8:41 AM EST [facility] Total Protein 6.0 5.7 - 8.2 g/dL 04/08/2021 8:41 AM EST [facility] Albumin 3.9 3.2 - 4.8 g/dL 04/08/2021 8:41 AM EST [facility] A/G Ratio 1.9 1.0 - 2.3 04/08/2021 8:41 AM EST [facility] Total Bilirubin 0.2 0.2 - 1.0 mg/dL 04/08/2021 8:41 AM EST [facility] AST <8(L) 13 - 40 U/L 04/08/2021 8:41 AM EST [facility] Alkaline Phosphatase 50 46 - 116 IU/L 04/08/2021 8:41 AM EST [facility] ALT 12 7 - 40 U/L 04/08/2021 8:41 AM EST [facility] Blood specimen (specimen) Venipuncture / Unknown 04/08/2021 6:54 AM EST 04/08/2021 7:51 AM EST [facility] - 04/08/2021 8:41 AM EST Reference range has been changed as of 01/06/2020. Mariam Gallegos LAB BLOOD ORDERABLES Final Re sult [facility] [address] [place] [address] * (ABNORMAL) Valproic acid level, free (04/08/2021 6:54 AM EST) [facility] Valproic Acid, Free 2.8(L) 4.8 - 17.3 mg/L 04/11/2021 4:57 PM EST [facility] Comment: Nonlinear drug binding properties result in the fraction of free valproic acid increasing as total drug increases. The free valproic acid fraction may range from 5% to 25% for the total drug range of 30-160 mg/L. Blood specimen (specimen) Venipuncture / Unknown 04/08/2021 6:54 AM EST 04/08/2021 7:51 AM EST Narrative [facility] - 04/11/2021 4:57 PM EST Performing Organization Information: Site ID: [id number] Name: [employer] Address: [address] [place] [address], [place] [address] Director: Raphael Mccoy M.D. us Mariam Gallegos COILED COIL INSPECTOR LAB BLOOD ORDERABLES Final Re sult [facility] [address] [place] [address] documented in this encounter Visit Diagnoses Diagnosis Illness, unspecified documented in this encounter Additional Health Concerns Infection Onset Date Last Indicated Resolved Time COVID-19 04/12/2021 04/12/2021 05/10/2021 11:4 6 PM EST documented as of this encounter Care Teams Lei Maker Relationship Specialty Start Date End Date Guru Sánchez MD [address] [place] [address] PCP - General Behavioral Health 01/08/17 [place] [phone] 11/25/16 documented as of this encounter
--- OUTSIDE RECORDS SUMMARY | 2025-02-09 16:51 | XMS_ITS | Encounter Summary ---
Author Organization [facility]ier [facility] Address [address] [place] [address] Care Team Providers Care Document Control Associate Name Role Phone None, Pcp Primary Care Provider Unavailabl e None, Pcp Unavailable Unavailable South Khanna MD Primary Care Provider [phone] Trish Beckett MD Primary Care Provider [phone] Encounter Details Date Type Department Care Team [...] Torres MD - 11/24/2014 7:51 AM EDT [facility] Manifest Name: CHARLIE HAYWOOD MR # [id number] : [id number] Age: 38 Sex: M PROGRESS NOTE ADM IN Location: *[facility] Room: [facility] cc: Ayaan Torres M.D. Subjective Date/Time [...] on filedocumented in this encounter Care Teams Document Control Associate Relationship Specialty Start Date End Date None, MD Baldemar PCP - General 07/28/14 01/13/19 South Khanna MD [address] [place] [address] PCP - General 01/14/19 03/05/20 Trish Beckett MD [address] [place] [id number] PCP - General 03/06/20 None, MD Baldemar 07/28/14 documented as of this encounter
--- OUTSIDE RECORDS SUMMARY | 2025-02-09 16:51 | XMS_ITS | Clinical Summary ---
Author Organization [facility] Address [address] [place] [address] Care Team Providers Care Dye Feeder Name Role Phone Pcp, No Primary Care Provider Unavailabl e Allergies Active Allergy Reactions Criticality Noted Date Comments Aspirin Hives Medium 10/23/2018 Aspirin Anaphylaxis High 10/27/2018 Latex Unknown/Patient and Family Unable to Define Medium 10/23/2018 Ibuprofen Unknown/Patient and Family Unable to Define Medium 10/23/2018 Nitroglycerin Hives Medium 10/23/2018 Nitroglycerin Anaphylaxis High 10/27/2018 Nsaids Anaphylaxis High 10/27/2018 Acetaminophen Hives Medium 10/23/2018 Reports stops breathing Medications No known medications Social History Tobacco Use Types Packs/Day Years Used Date Smoking Tobacco: Never Assessed Sex and Gender Information Value Date Recorded Sex Assigned at Male 08/07/2024 10:45 AM EDT Legal Sex Male 12:10 PM EDT Gender Identity Male 08/07/2024 10:45 AM EDT Sexual Orientation Choose not to disclose 2024 10:45 AM EDT Last Filed Vital Signs Vital Sign Reading Time Taken Comments Blood Pressure 130/78 08/07/2024 11:12 AM EDT Pulse 76 08/07/2024 11:12 AM EDT Temperature 36.8 C (98.2 F) 08/07/2024 7:51 AM EDT Respiratory Rate 18 08/07/2024 11:12 AM EDT Oxygen Saturation 96% 08/07/2024 11:12 AM EDT Inhaled Oxygen Concentration - - Weight - - Height - - Body Mass Index - - Plan of Treatment Health Maintenance Due Date Last Done Comments Hepatitis C Virus Screening 1976 DTaP/Tdap/Td Vaccines (1 - Tdap) 08/01/1995 Hepatitis B Vaccines (1 of 3 - 19+ 3-dose series) 08/01/1995 Pneumococcal Vaccine: Pediat amanda (0-5 Years) and At-Risk Patients (6 to 49 Years) (1 of 2 - PCV) 08/01/1995 Colonoscopy 2021 Influenza Vaccine 11/07/2024 03/05/2021, , 12/12/2018, Additional history exists COVID-19 Vaccine (3 - 2024-2 6 season) 2024 08/11/2020, 06/07/2020 HIV Screening Completed 06/27/2017 Hemoglobin A1C Discontinued 10/16/2021, 09/2020, 10/22/2018, Additional history exists Insurance [employer] MEDICARE OUT OF NETWORK [place] [id number] Care Teams Dye Feeder Relationship Specialty Start Date End Date Pcp, No PCP - General General Medicine 10/23/18
--- OUTSIDE RECORDS SUMMARY | 2025-02-09 16:51 | XMS_ITS | Encounter Summary ---
Author Organization [facility]izzeth Esdras [facility] Address [address] [place] [address] Care Team Providers Care Store Warehouse Associate Name Role Phone None, Pcp Primary Care Provider Unavailabl e None, Pcp Unavailable Unavailable South Khanna MD Primary Care Provider [phone] Trish Beckett MD Primary Care Provider [phone] Encounter Details Date Type Department Care Team (Late st Contact Info) Description 07/25/2014 Clinical Conversion Encounter GENERAL CONVERSION Mahendra Sánchez MD [address] [place] [id number] Social History Tobacco Use Types Packs/Day Years Used Date Smoking Tobacco: Never Assessed Sex and Gender Information Value Date Recorded Sex Assigned at Male 01/14/2019 2:03 PM EDT Legal Sex Male 3:08 PM EDT Gender Identity Male 01/14/2019 2:03 PM EDT Sexual Orientation Not on file documented as of this encounter H&P Notes * Mahendra Sánchez MD - 10/26/2014 6:33 AM EDT [facility] Name: LILIA HAYWOOD [facility] MR # [id number] [facility] : [birth year] Age: 38 Sex: M ADM Shahla HISTORY & PHYSICAL EXAM Location: Room: [facility] Admit Date: 07/25/14 - cc: Skye Marte MD _ DATE OF ADMISSION: 07/25/2014 PRIMARY CARE PHYSICIAN: Michelle Cheung CHIEF COMPLAINT: Chest pain. HISTORY OF PRESENT ILLNESS: The patient is a 38-year-old male. He claims that he has a past medical history of coronary artery disease. He apparently had an [place] back in 2008, for which he had 1 stent. He also has had a history of diabetes mellitus, history of borderline personality disorder, depression, and anxiety. He was on his way to his friend here in [place], he was in a train when he started to have chest pain. He got off [place] [facility] as the chest pain got worse. He [...] evaluation. The patient was recently admitted at [facility] in [place] for a similar pain. At that time, they only did an echocardiogram, which was essentially unremarkable, and he was sent home. He told me that apparently he stayed 10 days there. Last February, the patient was also admitted here at [facility], also similar story, he was in the train and developed chest pain. At that time, he was just evaluated with enzymes. 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 and according to documentation, the patient has had a cardiac catheterization multiple times last year. The last one reported in December was done at [facility], and it showed apparently nonobstructive [...] NITROGLYCERIN; however, from his discharge notes from [facility], they actually put him on aspirin as [...] history of coronary artery disease and had NY back in 2008, for which he had 1 stent. 2. Depression. 3. Borderline personality disorder. 4. Diabetes type 2, on insulin. 5. History of obstructive sleep apnea. PAST SURGICAL HISTORY: He had gastric bypass surgery and he had 1 cardiac [facility] Name: LILIA HAYWOOD [facility] MR # [id number] HISTORY & PHYSICAL continued Admit Date: 07/25/14 [...] but from the medication reconciliation sheet from [facility], he was prescribed with aspirin 81 mg [...] oriented x3, in no acute distress. HEENT: [place] palpebral conjunctivae, anicteric sclerae, moist buccal mucosa. [...] of 67 beats per minute, normal axis. OR, QRS, and QTC are all normal. No [...] observation. The patient already was admitted from [facility] with similar symptoms about 2 weeks ago [...] we need to do any further workup. [facility] Name: LILIA HAYWOOD [facility] MR # [id number] HISTORY & PHYSICAL continued Admit Date: 07/25/14 [...] M.D. ELECTRONICALLY SIGNED 07/25/14 1904 T: SVETLANA //ivnm// //add1// //add3// //add2// [id number] documented in this encounter Plan of Treatment [...] * POCT Glucose (07/25/2014 10:28 PM EDT) [facility] Glucose, POC 77 74 - 118 CONVERS ION FROM [employer] Comment:Resulted using [employer] POC Software 07/25/2014 10:2 8 PM EDT 07/25/2014 10:37 PM EDT us Dylan Coe MD POCT ORDERABLES - DEVICE Final Result CONVERSION FROM [employer] * ECG 12 lead (07/25/2014 8:39 PM EDT) 07/25/2014 8:39 PM EDT Narrative CONVERSION FROM [employer] - 07/26/2014 10:30 AM EDT [facility] [employer] [facility]. Name: LILIA HAYWOOD MR # [id number] EKG REPORT PCP: MICHELLE CHATMNA Ord MD: Dylan Coe MD : [birth year] Age: 38 Sex: M ADM [facility] Location: [place] [address] Exam Date: 07/25/14 cc: Skye Paul Ajay, [...] significant change was found Confirmed by Skye Alvarez, Serafin ([id number]) on 07/26/2014 10:29:57 AM Referred By: Confirmed By:Serafin Alvarez M.D. Procedure Note Serafin Alvarez MD - 11/08/2014 [employer] [facility]. Name: LILIA HAYWOOD MR # [id number] EKG REPORT PCP: MICHELLE CHATMAN Ord MD: Dylan Coe MD : [birth year] Age: 38 Sex:M ADMINo Location: [place] [address] Exam Date: 07/25/14 cc: Skye Paul Ajay, [...] significant change was found Confirmed by Skye Alvarez, Serafin ([id number]) on 07/26/2014 10:29:57 AM Referred By: Confirmed By:Serafin Alvarez M.D. Dylan Coe MD ECG ORDERABLES Final Result CONVERSION FROM [employer] * CT Head WO Contrast (07/25/2014 7:47 PM EDT) Anatomical Region Laterality Modality Head Computed Tomogra phy 07/25/2014 7:47 PM EDT Narrative 07/25/2014 7:47 PM EDT EXAM DESCRIPTION: CT HEAD W/C CLINICAL HISTORY: [...] No intracranial mass, hemorrhage or evidence of an acute territorial infarct. Prominent CSF space along the posterior cerebellum which could represent a elba cisterna magna variant or arachnoid cyst. Prominent ventricles, sulci and cisterns for the patient's age, suggesting mild generalized tissue loss. Procedure Note Corin [...] mild generalized tissue loss. Dylan Coe MD [facility] CT ORDERABLES Final Result * (ABNORMAL) Hemoglobin and Hematocrit, Blood (07/25/2014 6:50 PM EDT) Hemoglobin 10.8(L) 12.7 - 16.7 g/dl [facility]oc[facility] 34.0(L) 38.1 - 50.1 % CONVERSION FROM [employer] Blood specimen (specimen) 07/25/2014 6:50 PM EDT 07/25/2014 6:53 PM EDT us Dylan Coe MD LAB BLOOD ORDERABLES Final Resu lt Performing Organization Address City/[facility] [employer] Phone Number CONVERSION FROM [employer] * Troponin T (07/25/2014 6:50 PM EDT) Pathologist [facility] Troponin T < 0.01 <0.03 ng/ml CONVERSION FROM [employer] Comment: Troponin-T: <0.03 ng/ml - Negative 0.03 to 0.09 ng/ml - Indeterminate >0.09 ng/ml - Positive for acute myocardial damage Blood specimen (specimen) 07/25/2014 6:50 PM EDT 07/25/2014 6:53 PM EDT us Dylan Coe MD LAB BLOOD ORDERABLES Final Resu lt Performing Organization Address [facility] de Phone Number CONVERSION FROM [employer] * POCT Glucose (07/25/2014 4:08 PM EDT) Pathologist [facility] Glucose, POC 84 74 - 118 CONVERS ION FROM [employer] Comment:Resulted using [employer] POC Software 07/25/2014 4:08 PM EDT 07/25/2014 4:26 PM EDT us Dylan Coe MD POCT ORDERABLES - DEVICE Final Result Performing Organization Address City/[facility] de Phone Number CONVERSION FROM [employer] * (ABNORMAL) Hemoglobin and Hematocrit, Blood (07/25/2014 1:12 PM EDT) Hemoglobin 10.7(L) 12.7 - 16.7 g/dl CONVERSION FROM [employer] Hematocrit 34.4(L) 38.1 - 50.1 % CONVERSION FROM [employer] Blood specimen (specimen) 07/25/2014 1:12 PM EDT 07/25/2014 1:59 PM EDT us Dylan Coe MD LAB BLOOD ORDERABLES Final Resu lt CONVERSION FROM [employer] * (ABNORMAL) POCT Glucose (07/25/2014 10:48 AM EDT) Glucose, POC 139(H) 74 - 118 CONVERS ION FROM [employer] Comment:Resulted using [employer] POC Software 07/25/2014 10:4 8 AM EDT 07/25/2014 10:57 AM EDT us Dylan Coe MD POCT ORDERABLES - DEVICE Final Result Performing Organization Address City/[facility] Phone Number CONVERSION FROM [employer] * Troponin T (07/25/2014 10:00 AM EDT) Troponin T < 0.01 <0.03 ng/ml CONVERSION FROM [employer] Comment: Troponin-T: <0.03 ng/ml - Negative 0.03 to 0.09 ng/ml - Indeterminate >0.09 ng/ml - Positive for acute myocardial damage Blood specimen (specimen) 07/25/2014 10:00 AM EDT 07/25/2014 10:53 AM EDT us Dylan Coe MD LAB BLOOD ORDERABLES Final Resu lt Performing Organization Address [facility] de Phone Number CONVERSION FROM [employer] * POCT Glucose (07/25/2014 7:08 AM EDT) Glucose, POC 83 74 - 118 CONVERS ION FROM [employer] Comment:Resulted using [employer] POC Software 07/25/2014 7:08 AM EDT 07/25/2014 7:15 AM EDT us Dylan Coe MD POCT ORDERABLES - DEVICE Final Result CONVERSION FROM [employer] * Troponin T (07/25/2014 2:37 AM EDT) Troponin T < 0.01 <0.03 ng/ml CONVERSION FROM [employer] Comment: Troponin-T: <0.03 ng/ml - Negative 0.03 to 0.09 ng/ml - Indeterminate >0.09 ng/ml - Positive for acute myocardial damage Blood specimen (specimen) 07/25/2014 2:37 AM EDT 07/25/2014 2:37 AM EDT Dylan Coe MD LAB BLOOD ORDERABLES Final Resu lt CONVERSION FROM [employer] * ECG 12 lead (07/25/2014 2:25 AM EDT) 07/25/2014 2:25 AM EDT Narrative CONVERSION FROM [employer] - 07/25/2014 1:15 PM EDT [employer]. Name: LILIA HAYWOOD MR # [id number] EKG REPORT PCP: MICHELLE CHATMAN Ord MD: Mahendra Sánchez M.D. : [birth year] Age: 38 Sex: M ADM [facility] Location: [place] [address] Exam Date: 07/25/14 cc: Skye Paul Kristofferson, [...] PM Referred By: Confirmed By:Serafin Alvarez M.D. Procedure Note Serafin Alvarez MD - 11/08/2014 [employer]. Name: LILIA HAYWOOD MR # [id number] EKG REPORT PCP: MICHELLE Baldwin MD:Mahendra Sánchez M.D. : [birth year] Age: 38 Sex:M ADMINo Location: [place] [address] Exam Date: 07/25/14 cc: Skye Paul Kristofferson, [...] ECG ORDERABLES Final Resul t CONVERSION FROM [employer] documented in this encounter Visit Diagnoses Not on filedocumented in this encounter Care Teams Store Warehouse Associate Relationship Specialty Start Date End Date None, MD Baldemar PCP - General 07/28/14 01/13/19 South Khanna MD [address] [place] [address] PCP - General 01/14/19 03/05/20 Trish Beckett MD [address] [place] [address] PCP - General 03/06/20 None, MD Baldemar 07/28/14 documented as of this encounter
--- OUTSIDE RECORDS SUMMARY | 2025-02-09 16:51 | XMS_ITS | Encounter Summary ---
Author Organization [facility] (historical information prior to 01/10/2025 only) Address [address] [place] [address] Care Team Providers Care Concert Promoter Name Role Phone Trish Beckett Primary Care Provider [phone] Encounter Details Date Type Department Care Team (Late st Contact Info) Description 03/07/2020 Procedure [facility] [address] [place] [phone] Social History Tobacco Use Types Packs/Day [...] on filedocumented in this encounter Care Teams Concert Promoter Relationship Specialty Start Date End Date Trish Beckett [id number],[place] [address] PCP - General 03/06/20 documented as of this encounter
--- OUTSIDE RECORDS SUMMARY | 2025-02-09 16:51 | XMS_ITS | Encounter Summary ---
Author Organization [facility] Address [address] [place] [address] Phone Care Team Providers Care Chainstitch Tunnel Elastic Operator Name Role Phone Pcp-Confirmed, No Primary Care Provider Unavaila ble Encounter Details Date Type Department Care Team (Late st Contact Info) Description 06/25/2014 Documentation Neurosurgery [address] [place] [phone] Andrew Ramirez MD [address] [place] [address] Social History Tobacco Use Types Packs/Day Years Used Date Smoking Tobacco: Never Smokeless Tobacco: Never Comments:Smoking History:[facility] er smoker Alcohol Use Standard Drinks/Week Comments No 0 (1 standard drink = 0.6 oz pur e alcohol) Sex and Gender Information Value Date Recorded Sex Assigned at Male 07/25/2024 11:26 AM EDT Legal Sex Male 10:25 PM EDT Gender Identity Male 12/23/2024 12:42 AM EDT Sexual Orientation Straight 12/23/2024 12 :42 AM EDT documented as of this encounter Miscellaneous Notes * Business English Instructor - Andrew Ramirez MD - 06/25/2014 12:00 AM EDT OFFICE VISIT DATE OF SERVICE: 06/25/2014 Charlie Rios was seen today in neurosurgery clinic. Charlie is now 4 weeks status post C5, C6 discectomy/arthrodesis. The patient states the pain in the right upper extremity has completely resolved. He has no left-sided symptoms. He can walk without difficulty. He has no bowel or bladder symptoms. The patient does admit to intermittent numbness of the right upper extremity and hand. PHYSICAL EXAMINATION: Wound is well healed. The patient has full strength throughout both upper and lower extremities. Gait is normal. ASSESSMENT: Resolving radiculopathy status post C5-6 discectomy. PLAN: 1. X-ray of cervical spine in 2-4 weeks. 2. Follow up after above. Andrew Ramirez MD Package Liner, Department of Neurosurgery Parking Lot Attendant And Cashier of Neurosurgery and Pediatrics [facility] Job #: [id number] documented in this encounter Plan of Treatment Not on file documented as of this encounter Visit Diagnoses Not on filedocumented in this encounter Care Teams Chainstitch Tunnel Elastic Operator Relationship Specialty Start Date End Date Pcp-Confirmed, No PCP - General 03/21/17 documented as of this encounter
--- OUTSIDE RECORDS SUMMARY | 2025-02-09 16:51 | XMS_ITS | Encounter Summary ---
Author Organization [facility] [address] [place] [address] Care Team Providers Care Sweatband Drummer Name Role Phone Pcp, No Unavailable Unavailable Guru Sánchez MD Primary Care Provider [phone] Encounter Details Date Type Department Care Team (Late st Contact Info) Description 04/12/2021 Lab Requisition [address] [phone] Carolyn Perea MD [address] [place] [address] Illness, unspecified Social History Tobacco Use Types [...] Procedure Name Priority Date/Time Associated Diagnosis Comments SARS COV-2 Routine 04/12/2021 2:20 PM EST Illness, unspecified documented in this encounter Results * (ABNORMAL) SARS CoV-2 (04/12/2021 2:20 PM EST) SARS PCR - BROAD POSITIVE( A) Negative 04/14/2021 1:43 PM EST [facility] Comment: Positive for detection of 2019-novel Coronavirus (2019-nCoV) by qRT-PCR. Methods and Limitations: This Laboratory Developed Test is a high-throughput version of the CDC 2019-nCoV Realtime RT-PCR test and has been validated in accordance with the guidance issued by the [employer] [place] [employer] (Jun) and the FDA (Jun 07, 2019). This test has not been FDA cleared or approved but is being run under the FDAs Emergency Use Authorization (EUA) mechanism. This test was validated for dry nasal swabs. Method: RNA is isolated from respiratory specimens using [employer] Viral RNA Isolation Kits (Spectrum Bridge); RNA is reverse transcribed to cDNA, and subsequently amplified in a Real-Time PCR Instrument (Applied Nanoleaf ViiA7). This system provides qualitative detection of nucleic acid from SARS-CoV-2. For more detailed information on the test methods and limitations as well as for Fact Sheets for both Patients and Healthcare providers see https://broad.io/qjycj51pqyn-xrrqngerwn5. Positive results are indicative of active infection with SARS-CoV-2 but do not rule out bacterial infection or co-infection with other viruses. The agent detected may not be the definite cause of disease. Negative results do not preclude SARS-CoV-2 infection and should not be used as the sole basis for patient management decisions. False negative results may occur if amplification inhibitors are present in the specimen or if inadequate numbers of organisms are present in the specimen due to improper collection, transportation, or handling. If the virus mutates in the RT-PCR target region, SARS-CoV-2 may not be detected or may be detected less predictably. Inhibitors or other types of interference may produce a false negative result. Specimen from nasopharyngeal structure (specimen) Both anterior nares / Unknown Non-SHG Collection / Unknown 04/12/2021 2:20 PM EST 04/12/2021 8:21 PM EST us Carolyn Perea MD MICROBIOLOGY - GENERAL ORDERA BLES Final Result [facility] [address] [place] [address] documented in this encounter Visit Diagnoses Diagnosis Illness, unspecified documented in this encounter Additional Health Concerns Infection Onset Date Last Indicated Resolved Time COVID-19 04/12/2021 04/12/2021 05/10/2021 11:4 6 PM EST documented as of this encounter Care Teams Sweatband Drummer Relationship Specialty Start Date End Date Guru Sánchez MD [address] [place] [address] PCP - General Behavioral Health 01/08/17 [place] [id number] 11/25/16 documented as of this encounter
--- OUTSIDE RECORDS SUMMARY | 2025-02-09 16:51 | XMS_ITS | Encounter Summary ---
Author Organization [facility]as [facility] Address [address] [place] [phone] Care Team Providers Care Field Attendant Name Role Phone None, Pcp Primary Care Provider Unavailabl e None, Pcp Unavailable Unavailable South Khanna MD Primary Care Provider [phone] Trish Beckett MD Primary Care Provider [phone] Encounter Details Date Type Department Care Team (Late st Contact Info) Description 07/26/2014 Clinical Conversion Encounter GENERAL CONVERSION Jc Inman MD [address] [facility] [place] [address] Social History Tobacco Use Types Packs/Day Years Used Date Smoking Tobacco: Never Assessed Sex and Gender Information Value Date Recorded Sex Assigned at Male 01/14/2019 2:03 PM EDT Legal Sex Male 3:08 PM EDT Gender Identity Male 01/14/2019 2:03 PM EDT Sexual Orientation Not on file documented as of this encounter H&P Notes * Jc Inman MD - 10/26/2014 6:33 AM EDT [facility] Name: [facility]OD [facility] MR # [id number] [facility] : [birth year] Age: 38 Sex: M DIS Shahla HISTORY & PHYSICAL EXAM Location: [facility] Room: [facility] Admit Date: 07/26/14 - 07/29/14 cc: Jc Inman M.D. NO _ DATE OF ADMISSION: 07/26/2014 PRIMARY CARE PHYSICIAN: None locally. CHIEF COMPLAINT: Chest pain. HISTORY OF PRESENT ILLNESS: This 38-year-old male with somewhat murky cardiac history was just discharged from [facility] early this morning after being worked up for chest pain. He ruled out for an acute coronary syndrome and was discharged to home. His workup consisted of cycle cardiac markers and EKGs. He did not have a stress test and did not see nozzleman. He has had multiple workups in the [...] 2000 mg bid, Plavix 75 mg daily, [facility] Name: CHAR[facility]IE HAY[facility] MR # [id number] HISTORY & PHYSICAL continued Admit Date: 07/26/14 [...] continue with Flomax. 5. Borderline personality disorder. [facility] Name: CHARLIE HAYWO[facility] MR # [id number] HISTORY & PHYSICAL continued Admit Date: 07/26/14 6. Depression. He will continue his usual psychotropic medications. 7. Morbid obesity. Weight loss will be encouraged. Dictated by: Jc Inman M.D. ELECTRONICALLY SIGNED 08/21/14 1511 T: SVETLANA [id number] //ivnm// //add1// //add3// //add2// [id number] documented in this encounter Plan of Treatment Not on file documented as of this encounter Visit Diagnoses Not on filedocumented in this encounter Care Teams Field Attendant Relationship Specialty Start Date End Date None, PcpMD PCP - General 07/28/14 01/13/19 South Khanna MD [address] [place] [id number] PCP - General 01/14/19 03/05/20 Trish Beckett MD [address] [place] [address] PCP - General 03/06/20 None, MD Baldemar 07/28/14 documented as of this encounter
--- OUTSIDE RECORDS SUMMARY | 2025-02-09 16:51 | XMS_ITS | Encounter Summary ---
Author Organization [facility] Address [address] [place] [address] Care Team Providers Care Technical Developer Name Role Phone None, Pcp Primary Care Provider Unavailabl e None, Pcp Unavailable Unavailable South Khanna MD Primary Care Provider [phone] Trish Beckett MD Primary Care Provider [phone] Encounter Details Date Type Department Care Team [...] Torres MD - 10/26/2014 6:33 AM EDT [facility] Name: CHARLIE HAYWOOD [facility] MR # [id number] [facility] : [birth year] Age: 38 Sex: M ADM Shahla TRANSFER SUMMARY Location: [facility] Room: [facility] Admit Date: 07/26/14 Disch Date: cc: Skye Medina MD DATE OF TRANSFER: 07/29/2014 To be transferred to [facility] for cardiac catheterization on 07/29/14. PRIMARY CARE PHYSICIAN: Unknown. CONSULTS: Dr. Charlie Reynolds, cardiology and Dr. Jem Ramirez, psychiatry. The patient's own diesel maintenance technician is a Dr. Reilly at phone number [phone]. FINAL DISCHARGE DIAGNOSES: Chest pain of unclear [...] 1-2 weeks. He is being transferred to [place] for cardiac catheterization arranged by Dr. Reynolds. [...] 33.1, WBC count 5900, platelet count 307,000. [facility] Name: CHARLIE HAYWOOD [facility] MR # [id number] [facility] Admit Date: 07/26/14 TRANSFER SUMMARY continued Sodium 141, potassium 4.6, chloride 106, CO2 24, glucose 75, BUN 15, creatinine 0.7. HISTORY OF PRESENT ILLNESS: The patient is a 38-year-old male who had been admitted to [facility] on the with chest pain and then subsequently discharged. He had gone to the train station to go home, but redeveloped chest discomfort and shortness of breath and was brought to the [facility] Emergency Room. The patient has had multiple hospitalizations for chest pain and gives a history of previous MIs and previous cardiac catheterizations. He apparently had been admitted to the hospital back in February and at that time, the hospitalist checked with his primary diesel maintenance technician and the patient apparently has had a [...] occasions and has been evaluated twice at [facility] and once at [place] by psychiatry and has been cleared for home discharge with follow up with his usual mental health services back in his home area. Because of his ongoing chest pain, it was felt that he should have cardiac catheterization and Dr. Reynolds arranged this to be performed at [facility]. Dictated by: Ayaan Torres M.D. ELECTRONICALLY SIGNED 07/29/14914 T: SVETLANA 4 7 //joaquínnm// //add1// //add3// //add2// [id number] documented in this encounter Progress Notes * Ayaan Torres MD - 11/16/2014 9:49 AM EDT [facility] Name: CHARLIE HAYWOOD [facility] MR # [id number] [facility] : [birth year] Age: 38 Sex: M ADM Shahla PATIENT CARE REFERRAL PAGE 1 Location: [facility] Room: [facility] Admit Date: 07/26/14 - cc: Ayaan [...] 139(H) 74 - 118 CONVERS ION FROM [employer] Comment:Resulted using [employer] POC Software 07/29/2014 11:0 0 AM EDT 07/29/2014 11:31 AM EDT us Toney Cat MD POCT ORDERABLES - DEVICE Final Result Performing Organization Address [facility] de Phone Number CONVERSION FROM [employer] * POCT Glucose (07/29/2014 7:17 AM EDT) Glucose, POC 97 74 - 118 CONVERS ION FROM [employer] Comment:Resulted using [employer] POC Software 07/29/2014 7:17 AM EDT 07/29/2014 7:26 AM EDT us Ayaan Torres MD POCT ORDERABLES - DEVICE Final Result Performing Organization Address [facility] Co de Phone Number CONVERSION FROM [employer] * ECG 12 lead (07/29/2014 6:24 AM EDT) 07/29/2014 6:24 AM EDT Narrative CONVERSION FROM [facility] - 07/29/2014 6:59 PM EDT [facility] Name: CHARLIE HAYWOOD MR # [id number] EKG REPORT PCP: NO Ord MD: Jc Inman M.D. : [birth year] Age: 38 Sex: M DIS Shahla Location: *[address] Exam Date: 07/29/14 cc: Skye Daley [...] PM Referred By: Confirmed By:Charlie Reynolds M.D. Procedure Note Charlie Reynolds MD - [facility]08/2014 [facility] Name: CHARLIE HAYWOOD MR # [id number] EKG REPORT PCP: NO Ord MD: Jc Inman M.D. : [birth year] Age: 38 Sex:M DISINo Location: *[facility] Exam Date: 07/29/14 cc: Skye Daley William, [...] change was found Confirmed by Skye Reynolds, Charlie ([id number]) on 07/29/2014 6:59:30 PM Referred By: Confirmed By:Charlie Reynolds M.D. Jc Inman MD ECG ORDERABLES Final Result CONVERSION FROM [employer] documented in this encounter Visit Diagnoses Not on filedocumented in this encounter Care Teams Technical Developer Relationship Specialty Start Date End Date None, PcpMD PCP - General 07/28/14 01/13/19 South Khanna MD [address] [place] [address] PCP - General 01/14/19 03/05/20 Trish Beckett MD [address] [place] [address] PCP - General 03/06/20 None, MD Baldemar 07/28/14 documented as of this encounter
--- OUTSIDE RECORDS SUMMARY | 2025-02-09 16:51 | XMS_ITS | Clinical Summary ---
Author Organization [facility] (historical information prior to 01/10/2025 only) Address [address] [place] [address] Care Team Providers Care Stock Receiver Name Role Phone Trish Beckett Primary Care Provider [phone] Allergies Active Allergy Reactions Criticality Noted Date [...] 100 mg tablet 200 mg. Active ascorbate Rb-wdwtnept-wci (VITAMIN C) 1,000 mg powder effervescent in packet 500 mg. Active Ca b no.2-J4-F-6-FA-B1 2-aloe (VITAMIN D-3 WITH ALOE) 120-1,000-10 mg-unit-mg [...] of cp and had SI w/ plan. Pscy was consulted at that point and was [...] the past 2-3 months and [facility] [...] Morbid obesity with BMI of 40.0-44.9, adult 07/2 12/2013 Chest pain 02/22/2012 Overview (03/06/2020): Pt with clean cardiac cath at [facility] on 06/26/2014 He reports 4 past MIs, reports RCA stent, however no EKG features suggestive of past AR Last Assessment & Plan: Pt with hx of AR s/p stent in RCA, p/w left sided [...] stent, HLD, HTN. Additionally, his MIBI from [place] several weeks ago showed areas of ischemia [...] exercise, diet - connect patient with outpatient syrup mixer helper and PCP ? Pt with clean cardiac cath at [facility] on 06/26/2014 He reports 4 past MIs, reports RCA stent, however no EKG features suggestive of past AR Type 2 diabetes mellitus 11/17/2011 Overview (03/06/2020): [...] monitor BP Last Assessment & Plan: Per [facility] in [place], pt taking Lisinopril 20mg daily, Metoprolol 75mg [...] 93 09/16/2021 4:01 PM EDT Temperature 35.4 C (95.8 F) 09/16/2021 4:01 PM EDT Respiratory Rate 16 09/16/2021 4:01 PM EDT [...] - Tdap) 08/01/1995 Colon Cancer Screening 2021 Influenza (Seasonal) 11/07/2024 01/02/2020, 12/12/2018, 01/11/2018, Additional history exists CoVid-19 Vaccine ( season) 2024 08/11/2020, 06/07/2020 Hemoglobin A1C 01/31/2025 08/01/2024, 03/10, 03/23/2024, Additional history exists Hepatitis C Screening Completed 04/01/2024 , 03/17/2021, 01/20/2021 HIB Vaccines Aged Out No longer eligi [...] - 5.7 % 03/08/2020 5:30 PM EST [facility] Comment: Hemoglobin variant present. Recommend hemoglobin electrophoresis. Prediabetic range: 5.7 - 6.4% Diabetic range: > or = 6.5% Blood Venous blood / Unknown Venipuncture / Unknown 03/06/2020 8:35 PM EST 03/06/2020 8:51 PM EST us Roc Edwards MD LAB BLOOD ORDERABLES Final R esult [facility] [address] [place] [address], from Last 3 Months or Most Recently Relevant to Health Maintenance [facility] Advance Directives * Full Code (Latest Code Status on File) Date Activated Date Inactivated Comments 03/07/2020 12:03 AM 03/10/2020 6:49 PM Care Teams Stock Receiver Relationship Specialty Start Date End Date Sophy Trish [id number],[place] [address] PCP - General 03/06/20
--- OUTSIDE RECORDS SUMMARY | 2025-02-09 16:51 | XMS_ITS | Encounter Summary ---
Author Organization [facility]ier [facility] Address [address] [place] [address] Care Team Providers Care Ethanol Quality Leader Name Role Phone None, Pcp Primary Care Provider Unavailabl e None, Pcp Unavailable Unavailable South Khanna MD Primary Care Provider [phone] Trish Beckett MD Primary Care Provider [phone] Encounter Details Date Type Department Care Team [...] Torres MD - 11/24/2014 7:51 AM EDT [facility] Name: CHARLIE HAYWOOD MR # [id number] : [birth year] Age: 38 Sex: M PROGRESS NOTE ADM IN Location: *[facility] Room: [facility] cc: Ayaan Torres M.D. Subjective Date/Time Note [...] on filedocumented in this encounter Care Teams Ethanol Quality Leader Relationship Specialty Start Date End Date None, PcpMD PCP - General 07/28/14 01/13/19 South Khanna MD [address] [place] [address] PCP - General 01/14/19 03/05/20 Trish Beckett MD [address] [place] [address] PCP - General 03/06/20 None, MD Baldemar 07/28/14 documented as of this encounter
--- OUTSIDE RECORDS SUMMARY | 2025-02-09 16:51 | XMS_ITS | Encounter Summary ---
Author Organization [facility] Address [address] [place] [address] Care Team Providers Care Sql Server Architect Name Role Phone South Khanna MD Primary Care Provider [phone] Reason for Visit * Reason Comments Hospital F/U Encounter Details Date Type Department Care Team ([facility] st Contact Info) Description 12/26/2018 Telephone [facility] Primary Care Internal Medicine [address] [place] [phone] South Khanna MD [facility] Care [address] [place] [address] Hospital F/U Social History Tobacco Use Types [...] he has been told to go to [facility]. It is the patient that does not follow instructions and chooses to go to [facility]. Future Appointments Date Time Provider Department Phone 01/03/19 11:00 AM JUNIOR Germain [facility] Primary Care Internal Medicine [address] 06/26/19 1:00 PM South Khanna MD [facility] Primary Care Internal Medicine [address] * Telephone Encounter - Kailey Alonso - 12/26/2018 10:53 AM EDT Left Voicemail He may see Mirtha next week. Please advise them that in the future the patient should be referred to the emergency room at [facility] as this is the hospital that [...] for this. Please call the nurse at [facility]. He may see Mirtha next week. Please advise them that in the future the patient should be referred to the emergency room at [facility] as this is the hospital that I utilize and he is on [facility] one care which mandates that they use this facility. This has been an ongoing problem with their referral pattern. * Telephone Encounter - Kailey Alonso - 12/26/2018 9:52 AM EDT Marva Toscano [facility] home looking for a hospital f/u. [...] documented as of this encounter Care Teams Sql Server Architect Relationship Specialty Start Date End Date South Khanna MD PCP - General Internal Medicine 12/18/18 10/02/19 documented as of this encounter
--- OUTSIDE RECORDS SUMMARY | 2025-02-09 16:51 | XMS_ITS | Encounter Summary ---
Author Organization [facility] [address] [place] [address] Care Team Providers Care Sap Bi Developer Name Role Phone Pcp, No Unavailable Unavailable Guru Sánchez MD Primary Care Provider [phone] Encounter Details Date Type Department Care Team (Late st Contact Info) Description 01/10/2019 Lab Requisition [address] [phone] Carolyn Perea MD [address] [place] [address] Illness, unspecified Social History Tobacco Use Types [...] Procedure Name Priority Date/Time Associated Diagnosis Comments VALPROIC ACID LEVEL Routine 01/10/2019 7 :32 AM EDT Illness, unspecified documented in this encounter Results * (ABNORMAL) Valproic Acid Level (01/10/2019 7:32 AM EDT) Valproic Acid 22.8(L) 50.0 - 125.0 ug/mL 01/10/2019 9:36 AM EDT [facility] Blood specimen (specimen) Venipuncture / Unknown 01/10/2019 7:32 AM EDT 01/10/2019 8:39 AM EDT us Carolyn Perea MD LAB BLOOD ORDERABLES Final Re sult [facility] [address] [place], [place] documented in this encounter Visit Diagnoses Diagnosis Illness, unspecified documented in this encounter Additional Health Concerns Infection Onset Date Last Indicated Resolved Time COVID-19 04/12/2021 04/12/2021 05/10/2021 11:4 6 PM EST documented as of this encounter Care Teams Sap Bi Developer Relationship Specialty Start Date End Date Guru Sánchez MD [address] [place] [address] PCP - General Behavioral Health 01/08/17 [place] [id number] 11/25/16 documented as of this encounter
--- OUTSIDE RECORDS SUMMARY | 2025-02-09 16:52 | XMS_ITS | Clinical Summary ---
Author Organization [facility] Address [address] [place] [address] Care Team Providers Care Epic Beacon Analyst Name Role Phone Provider, Generic External Data [...] 83 03/23/2020 12:00 AM EST Temperature 36.5 C (97.7 F) 03/22/2020 9:24 PM EST Respiratory Rate 19 03/23/2020 12:00 AM EST Oxygen Saturation 95% 03/23/2020 12:00 AM EST Inhaled Oxygen Concentration - - Weight 137 kg (303 lb) 03/22/2020 9:24 PM EST Height 177.8 cm (5' 10 ) 03/22/2020 9:24 PM EST Body Mass Index 43.48 03/22/2020 9:24 PM EST Plan of Treatment Not on file Insurance [facility] Care Teams Epic Beacon Analyst Relationship Specialty Start Date End Date Provider, Generic External Data 0 PCP - General 03/22/20
--- OUTSIDE RECORDS SUMMARY | 2025-02-09 16:52 | XMS_ITS ---
[facility] Name [facility] Results Test Name/Text Value Interpretation Date Range Source Delta 1.0 Normal 08/07/2024 - 3 [facility] Troponin T SerPl-mCnc 7.0 ng/L Normal 08/07/2024 - 23 [facility] Lipase SerPl-cCnc 16.0 U/L Normal 08/07/2024 13 - 60 H HCCT Creat SerPl-mCnc 0.7 mg/dL Normal 08/07/2024 0.5 - 1.3 HH CCT CO2 SerPl-sCnc 20.0 mmol/L Below low normal 08/07/2024 22 - 33 HHCCT ALP SerPl-cCnc 80.0 U/L Normal 08/07/2024 45 - 128 HHCC T Globulin Ser Calc-mCnc 2.9 g/dL Normal 08/07/2024 1.5 - 3.9 HHCCT Sodium SerPl-sCnc 139.0 mmol/L Normal 08/07/2024 136 - 14 5 HHCCT Calcium SerPl-mCnc 9.0 mg/dL Normal 08/07/2024 8.7 - 10.5 HHCCT AST SerPl-cCnc 14.0 U/L Normal 08/07/2024 10 - 55 HHCC T Prot SerPl-mCnc 6.8 g/dL Normal 08/07/2024 6.3 - 8.[address] Bilirub SerPl-mCnc 0.4 mg/dL Normal 08/07/2024 0.2 - 1 H[facility]CT GFR/BSA.pred SerPlBld UZV-DEO-GgEBot >90.0 Normal 08/07/2024 59 - HHCCT Potassium SerPl-sCnc 4.1 mmol/L Normal 08/07/2024 3.4 - 5 .3 HHCCT ALT SerPl-cCnc 21.0 U/L Normal 08/07/2024 10 - 55 HHCC T Albumin SerPl-mCnc 3.9 g/dL Normal 08/07/2024 3.5 - 5 [facility] Anion Gap Bld-sCnc 11.0 Normal 08/07/2024 7 - 17 [facility]CT Chloride SerPl-sCnc 108.0 mmol/L Above high normal 98 - 107 [facility] BUN/Creat SerPl 16.0 Ratio Normal 08/07/2024 10 - 25 HH CCT Glucose SerPl-mCnc 131.0 mg/dL Above high normal 08/07/2024 65 - 99 [facility] Albumin/Glob SerPl 1.3 Ratio Normal 08/07/2024 1 - 3 [facility]CT BUN SerPl-mCnc 11.0 mg/dL Normal 08/07/2024 8 - [address] Troponin T SerPl-mCnc 8.0 ng/L Normal 08/07/2024 - 23 [facility] Delta NO PREVIOUS RESULT Normal 08/07/2024 - 3 [facility] Prothrombin time 13.0 seconds Normal 08/07/2024 10 - 13.5 [facility] INR PPP 1.1 Normal 08/07/2024 H[facility] Anticoagulant CLOPIDOGREL (PLAVIX) Normal 08/07/2024 [facility] Neutrophils num Bld Auto 4.73 Thou/uL Normal 08/07/2024 2 - 7.5 H[facility] RDW RBC Auto-Rto 23.2 % Above high normal 08/07/2024 11.5 - 14.5 H[facility] WBC num Bld Auto 6.6 Thou/uL Normal 08/07/2024 4 - 11 [facility] Basophils num Bld Auto 0.02 Thou/uL Normal 08/07/2024 0 - 0.2 H[facility]CT MCH RBC Qn Auto 24.4 pg Below low normal 08/07/2024 26 - 3 4 [facility] RBC num Bld Auto 5.05 Mil/uL Normal 08/07/2024 4.5 - 6.2 H[facility]CT MCHC RBC Auto-mCnc 30.6 g/dL Normal 08/07/2024 30 - 36 [facility] Neutrophils/leuk NFr Bld Auto 71.8 % Normal 08/07/2024 [facility] Monocytes/leuk NFr Bld Auto 9.4 % Normal 08/07/2024 H[facility]CT Lymphocytes num Bld Auto 1.03 Thou/uL Below low normal 08/07/2024 1.5 - 4.5 H[facility]CT Imm Granulocytes/leuk NFr Bld Auto 0.6 % Normal 08/07/2024 H[facility]CT Eosinophil num Bld Auto 0.15 Thou/uL Normal 08/07/2024 0 - 0.7 H[facility]CT PMV Bld Auto 10.3 fL Normal 08/07/2024 7.5 - 12.5 H[facility]CT MCV RBC Auto 80.0 fL Normal 08/07/2024 80 - 100 [facility] Platelet num Bld Auto 277.0 Thou/uL Normal 08/07/2024 150 - 450 [facility] Eosinophil/leuk NFr Bld Auto 2.3 % Normal 08/07/2024 [facility] Lymphocytes/leuk NFr Bld Auto 15.6 % Normal 08/07/2024 H[facility]CT Hct VFr Bld Auto 40.2 % Normal 08/07/2024 39 - 54 HH CCT Basophils/leuk NFr Bld Auto 0.3 % Normal 08/07/2024 [facility] Imm Granulocytes num Bld Auto 0.04 Thou/uL Normal 08/07/2024 0 - 0.1 H[facility]CT Monocytes num Bld Auto 0.62 Thou/uL Normal 08/07/2024 0.2 - 1.5 H[facility]CT Hgb Bld-mCnc 12.3 g/dL Below low normal 08/07/2024 13 - 17.7 [facility]CT Encounters Encounter Type Encounter Reason Primary Diagnosis Location Date Emergency Chest pain, unspecified Chest pain, unspecified [facility] 08/07/2024 Ambulatory [facility] 02/09/2024 Emergency CHEST PAIN Chest pain, unspecified [facility] 01/25/2024 Emergency CP FOR 2 HRS. RADIATES TO RUE. PREVIOUS NM / STENTS. ALLERGIC TO ASA AND NTG Other chest pain [facility] 01/24/2024 Inpatient CHEST PAINS [facility] 10/08/2021 Emergency medical services Palpitations Angina or Ischemic chest pain [facility] 10/07/2021 Emergency Surgical or othe r procedure not carried out because of patient's decision [facility] 09/15/2021 Care Team Organization Name Specialty Phone Email Start Date End Da te [facility] 02/04/2025 [facility] PCP Pipe Coverer 08/07/2024 09/05/2024 [facility] NO PCP Primary Care 08/07/2024 [facility] Primary Care 01/25/2024 02/26/2024 [facility] Emergency Department [place] Primary Care [facility] 01/24/2024 [facility] MCKINLEY SEVILLA Primary Care 08/09/2022 [facility] 04/09/2022 11/26/2023 [facility] 10/08/2021 10/08/2021 [facility] 09/15/2021 09/15/2021 [facility] (No Auditable Contacts or Assets) 06/24/201906/24 [facility] 06/24/2019 06/24/2019 [facility] Provider Non LB Primary Care 06/24/20192019 [facility] ([facility] NINE [phone] Primary Care 06/23/201906/07 [facility] ([facility]) MCKINLEY SEVILLA Primary Care 06/23/2019 0 [facility] 06/19/2019 020
[2025-02-09 17:17] VITALS: BMI 38.8
--- NOTE | 2025-02-09 19:13 | PC.NURSE ---
Pt arrived from [facility] via stretcher at 1550. Pts VSS, skin check completed, skin intact. Pt was admitted for depression with SI. Pt denies SI currently and has no plan or intent to harm himself. Pt was calm and cooperative. Pt ate 100% of meal. Pt denied any pain or discomfort. Pt relaxed watching TV with peers at this time. Belongings inventoried and medications sent to pharmacy.
[2025-02-09 20:00] VITALS: BP 123/62; PULSE 90; RESP 18; TEMP 37.3; O2SAT 95
[2025-02-09 21:50] VITALS: BP 128/64
[2025-02-09 21:56] LABS: Glucose, Whole Blood 190 mg/dL (60-115)
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
--- NOTE | 2025-02-09 23:23 | PC.NURSE ---
At 22:20 patient came to nurses window c/o L sided chest pain 10/10. Patient reports vomiting X2 with blood (unwitnessed), blurry vision, and H/A. Vital Signs: BP 153/76 HR 92 96% O2 RA No diaphoresis and patient displays the same appearance as during admission. Provider Vesna ANALYTICAL ENGINEER informed of event. Per provider patient had the same complaint in [facility] ED and all work up was negative. STAT EKG was ordered out of caution due to patients cardiac history. EKG read by provider showing NSR, normal EKG. Plan is to provide support and continue to monitor.
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
[2025-02-10 07:54] LABS: Lithium 0.31 mmol/L (0.60-1.20)
[2025-02-10 07:56] LABS: Glucose, Whole Blood 105 mg/dL (60-115)
[2025-02-10 08:13] LABS: Alanine Aminotransferase 15 U/L (0-40); Albumin Level 3.7 g/dL (3.5-5.0); Alkaline Phosphatase 50 U/L (39-117); Anion Gap 9 (12-20); Aspartate Amino Transferase 18 U/L (5-37); Blood Urea Nitrogen 15 mg/dL (9-16); Calcium 8.5 mg/dL (8.4-10.2); Carbon Dioxide 24 mmol/L (22-29); Chloride 110 mmol/L (96-108); Cholesterol 98 mg/dL (<200); Creatinine Clr Calc Pharmacy 177.0; Estimated Glomerular Filt Rate > 60; HDL Cholesterol 30 mg/dL (>40); Potassium 4.1 mmol/L (3.3-5.1); Sodium 139 mmol/L (135-145); Total Protein 6.2 g/dL (6.5-8.0); Triglycerides 95 mg/dL (<150)
[2025-02-10 08:28] LABS: Free T4 (Free Thyroxine) 0.88 ng/dL (0.71-1.85); Thyroid Stimulating Hormone 0.88 uIU/mL (0.32-4.0)
--- NOTE | 2025-02-10 08:32 | HO.PM.IMCN ---
History of Present Illness Data of Consult Service Date: 02/10/25 Primary Care Provider: Unknown Physician HPI Reason for consult: Medical consult 51-year-old male with a past medical history of bipolar disorder, malingering, PTSD and autism spectrum disorder, BPH, CAD with an [place] x6, status post stent x2, CHF, hypertension, hyperlipidemia, diabetes, AFib, COPD presented to [facility] ED with 10/10 chest pain. Per historical records patient reported he was treated for prior MIs in [place], on verifiable. He was placed on tele noted to be in normal sinus rhythm with no ischemic changes or arrhythmias. Negative for STEMI. His WBC was within normal limits, mild anemia. Cardiac workup was negative, he then expressed suicidal ideation and was subsequently eval by crisis. Troponins were negative at less than 3, no leukocytosis, mild anemia. BNP was 9. Electrolytes were within normal limits, no evidence of renal or liver impairment. Tox screen was positive for opiates which she received in the hospital otherwise negative. Chest x-ray was negative with no evidence of pneumonia or edema. Notably patient was worked up and [facility] on 02/08/2025 for similar complaint and had a negative cardiac workup. He also presented January 2025 to [facility] again with a negative cardiac workup. Patient reported 10/10 left-sided chest pain last evening after admission, EKG was normal at that time. Again reported chest pain this morning. It was recommended that he follow up outpatient for a scheduled cardiac catheterization to evaluate during last evaluation at [facility]. Have not been able to confirm any information patient has provided per previous medical record requests. Pt has a long history of presenting to various EDs complaining of chest pain and often receiving multiple doses of morphine due to self-reported allergies to typical ACS medications, then endorsing SI and being admitted for inpatient psychiatric stabilization after negative workup. This presentation is similar. Per patient interview. He had a stent placed in the RCA in 1999 at [facility] 2004 he underwent another catheterization that demonstrated an occluded stent in the RCA- the area was re-stented at [facility] 2008 he had a cardiac catheterization which demonstrated some occlusion in the LCA [facility]-No stent 2024 patient reports that a couple of months ago he was diagnosed with a PE while on vacation in [place]. Patient reports that he was never been seen in [place] or [place]. Patient reports he has no primary care, patient reports he has never been seen by a janitor head. Patient reports that 4 years ago he developed a anaphylactic reaction to aspirin and nitro. Patient reports took it safely in the past. Patient reports that his troponins or EKGs are always unchanged. He reports a history of 6 MIs however does not know dates or where he was treated for these or which State he was in. Since admission notified by nursing that patient reports chest pain. On exam he tells me that he has chest pain which radiates to his left arm, neck, jaw and upper back. Worse than a 10/10 pain. No diaphoresis patient appears calm in no apparent distress. He declines an EKG and troponin at this time. Reports that this never shows anything, that is ?not how his MIs are found?. Vitals are stable and upon lab review his labs were within normal limits. He otherwise reports that his asthma, diabetes, and hypothyroidism are well-controlled. Patient reports that he lives in [place] and would like to follow up with the primary care and janitor head in his area. Review of Systems Review of Systems: Denies any shortness of breath, reports chest pain as described in HPI. No headaches, dysuria, abdominal pain or discomfort, nausea, vomiting or diarrhea. Denies fever or chills. [facility] Medical History (Updated 02/10/25 @ 13:36 by Doris Giron DNP) Atypical chest pain Suicidal ideation Chest pain Bipolar disorder Mood disorder PTSD (post-traumatic stress disorder) Depression History of pulmonary embolism BPH (benign prostatic hyperplasia) Diabetes Obesity Hypothyroid HLD (hyperlipidemia) CAD (coronary artery disease) Surgical History (System 02/10/25 @ 07:50 by Mary Silver) History of coronary artery stent placement Social History (System 02/10/25 @ 07:50 by Mary Silver) Household Members: Friend(s) Housing: House Do you presently have visiting nurse or other home services: No Alcohol intake: never Patient Tobacco Use Status: Never used Tobacco e-Cigarette/Vaping Use: Never Used Second Hand Smoke Exposure: No service: No Current occupational status: unemployed Sexual orientation: Straight/Heterosexual Meds Allergies Allergy/AdvReac Type Severity Reaction Status Date / Time acetaminophen (From TYLENOL) Allergy Severe ANAPHYLAXIS Verified 02/10/25 07:50 aspirin (ASA) Allergy Severe ANAPHYLAXIS Verified 02/10/25 07:50 nitroglycerin (NITROGLYCERIN) Allergy Severe ANAPHYLAXIS Verified 02/10/25 07:50 amoxicillin (AMOXICILLIN) Allergy Mild RASH Verified 02/10/25 07:50 fish derived (fish) Allergy Anaphylaxis Verified 02/10/25 07:50 ibuprofen Allergy Anaphylaxis Verified 02/10/25 07:50 Poultry Allergy Anaphylaxis Verified 02/10/25 07:50 Active Medications: Current Medications Acetaminophen (Acetaminophen 325 Mg Tablet) 650 mg PO Q6H PRN PRN Reason: Headache/Pain, Scale 1-10 Al Hydroxide/Mg Hydroxide (Magnesium Hydrox/Alum Hydrox 30 Ml Oral.Susp) 30 ml PO Q6H PRN PRN Reason: Heartburn/Nausea Albuterol Sulfate (Albuterol Sulfate 90 Mcg 8 Gm Inhaler) 2 puff INHALE Q6H PRN PRN Reason: Shortness of Breath Atorvastatin Calcium (Atorvastatin Calcium 80 Mg Tablet) 80 mg PO BEDTIME [facility] Last Admin: 02/09/25 21:51 Dose: 80 mg Atorvastatin Calcium (Atorvastatin Calcium 40 Mg Tablet) 40 mg PO BEDTIME [facility] Last Admin: 02/09/25 21:51 Dose: 40 mg Clopidogrel Bisulfate (Clopidogrel Bisulfate 75 Mg Tablet) 75 mg PO DAILY [facility] Dextrose (Dextrose 50 % 25 Gm/50 Ml Syringe) 25 gm IVPUSH Q15M PRN; Protocol PRN Reason: per Hypoglycemia Standing Ord. Divalproex Sodium (Divalproex Sodium 250 Mg Tablet.) 250 mg PO BEDTIME [facility] Last Admin: 02/09/25 21:50 Dose: 250 mg Divalproex Sodium (Divalproex Sodium 500 Mg Tablet.) 1,000 mg PO DAILY [facility] Escitalopram Oxalate (Escitalopram Oxalate 10 Mg Tablet) 10 mg PO DAILY [facility] Ferrous Sulfate (Ferrous Sulfate 324 Mg Tablet.) 324 mg PO DAILY [facility] Glucose (Glucose Gel 15 Gm Gel..Gram.) 15 gm PO Q15M PRN; Protocol PRN Reason: per Hypoglycemia Standing Ord. Hydroxyzine HCl (Hydroxyzine Hcl 25 Mg Tablet) 25 mg PO Q6H PRN PRN Reason: mild anxiety Insulin Human Lispro (Insulin Lispro 100 Unit/Ml 3 Ml Vial) 0 unit SUBCUT QIDACHS [facility]; Protocol Last Admin: 02/09/25 21:51 Dose: Not Given Levothyroxine Sodium (Levothyroxine Sodium 25 Mcg Tablet) 25 mcg PO DAILY@0630 [facility] Last Admin: 02/10/25 06:23 Dose: 25 mcg Lisinopril (Lisinopril 20 Mg Tablet) 20 mg PO DAILY [facility]; Protocol [place] Carbonate ([place] Carbonate 300 Mg Capsule) 600 mg PO BID [facility] Last Admin: 02/09/25 21:49 Dose: 600 mg Magnesium Hydroxide (Milk Of Magnesia 30 Ml Oral.Susp) 30 ml PO DAILY PRN PRN Reason: Constipation Metformin HCl (Metformin Hcl 500 Mg Tablet) 500 mg PO DAILY [facility] Nicotine (Nicotine 21 Mg Patch.Td24) 21 mg TRANSDERMA DAILY PRN PRN Reason: nicotine craving Nicotine Polacrilex (Nicotine Polacrilex 2 Mg Gum) 2 mg BUCCAL Q2H PRN PRN Reason: Nicotine Cravings Omeprazole (Omeprazole 20 Mg Capsule.Dr) 20 mg PO DAILY@0630 [facility] Last Admin: 02/10/25 06:23 Dose: 20 mg Propranolol HCl (Propranolol Hcl 20 Mg Tablet) 20 mg PO BID [facility]; Protocol Last Admin: 02/09/25 21:50 Dose: 20 mg Quetiapine Fumarate (Quetiapine Fumarate 400 Mg Tablet) 400 mg PO BEDTIME [facility] Last Admin: 02/09/25 21:49 Dose: 400 mg Rivaroxaban (Rivaroxaban 20 Mg Tablet) 20 mg PO DAILY@1700 [facility] Trazodone HCl (Trazodone Hcl 50 Mg Tablet) 50 mg PO BEDTIME MRX1 PRN PRN Reason: Insomnia Vitamin D (Cholecalciferol (Vitamin D3) 25 Mcg Tablet) 25 mcg PO DAILY [facility] Home Medications ?Medication ?Instructions ?Recorded ?Confirmed ?Last Taken ?Type atorvastatin 40 mg tablet 40 mg PO BEDTIME 09/02/24 09/16/24 Unknown History escitalopram oxalate 10 mg tablet 10 mg PO DAILY 09/02/24 09/16/24 Unknown History fluticasone propionate 50 1 spray intranasal DAILY 09/02/24 09/16/24 Unknown History mcg/actuation nasal spray,suspension lisinopril 10 mg tablet 10 mg PO DAILY 09/02/24 09/16/24 Unknown History metoprolol tartrate 50 mg tablet 50 mg PO BID 09/02/24 09/16/24 Unknown History perphenazine 8 mg tablet 8 mg PO BID 09/02/24 09/16/24 Unknown History primidone 50 mg tablet 50 mg PO BEDTIME 09/02/24 09/16/24 Unknown History quetiapine 400 mg tablet 400 mg PO BEDTIME 09/02/24 09/16/24 Unknown History carbidopa 25 mg-levodopa 250 mg 1 tab PO TID 09/16/24 09/16/24 Unknown History tablet rivaroxaban 20 mg tablet (Xarelto) 20 mg PO BEDTIME 09/16/24 09/16/24 Unknown History albuterol sulfate 90 mcg/actuation 2 puff inhalation Q6H PRN 02/09/25 02/09/25 Unknown History aerosol inhaler Shortness Of Breath atorvastatin 40 mg tablet 40 mg DAILY 02/09/25 02/09/25 02/09/25 09:24 History atorvastatin 80 mg tablet 80 mg PO BEDTIME 02/09/25 02/09/25 Unknown History cholecalciferol (vitamin D3) 25 mcg DAILY 02/09/25 02/09/25 02/09/25 09:24 History clopidogrel 75 mg tablet 75 mg PO DAILY 02/09/25 02/09/25 Unknown History divalproex 500 mg tablet,delayed 500 mg PO BID 02/09/25 02/09/25 Unknown History release escitalopram oxalate 10 mg tablet 10 mg PO DAILY 02/09/25 02/09/25 Unknown History (Lexapro) ferrous sulfate 325 mg DAILY 02/09/25 02/09/25 Unknown History insulin lispro 100 unit/mL 12 unit TID 02/09/25 02/09/25 Unknown History subcutaneous solution levothyroxine 25 mcg tablet 25 mcg PO DAILY 02/09/25 02/09/25 Unknown History lisinopril 20 mg tablet 20 mg PO DAILY 02/09/25 02/09/25 Unknown History lithium carbonate 600 mg capsule 600 mg PO BID 02/09/25 02/09/25 Unknown History metformin 500 mg tablet 500 mg PO DAILY 02/09/25 02/09/25 Unknown History pantoprazole 40 mg tablet,delayed 40 mg PO DAILY 02/09/25 02/09/25 Unknown History release propranolol 20 mg tablet 20 mg PO BID 02/09/25 02/09/25 Unknown History quetiapine 400 mg tablet (Seroquel) 400 mg BEDTIME 02/09/25 02/09/25 Unknown History rivaroxaban 20 mg tablet (Xarelto) 20 mg PO DAILY 02/09/25 02/09/25 Unknown History Physical Exam Vital Signs and Narrative: Vital Signs: Last Vital Signs Temp 99.1 F 02/09/25 20:00 Pulse 90 02/09/25 20:00 Resp 18 02/09/25 20:00 BP 128/64 02/09/25 21:50 Pulse Ox 95 02/09/25 20:00 O2 Del Method Room Air 02/09/25 20:00 BMI result Body Mass Index 38.8 Alert and oriented X3, calm and cooperative. Answers questions. Neuro: CN II-X11 intact, no deficits, visual acuity intact EYES: PERRLA, EOM intact ENT: Hearing intact, MMM Cardiac: S1 S2 RRR, No ectopy Pulmonary: lungs clear to auscultation, No increased WOB. Abdominal: BS active in all 4 quadrants, no guarding or tenderness MSK: Strength 5/5 upper and lower extremities : Deferred Extremities: No edema in lower extremities Psych: Mood stable, Quiet and cooperative. Skin: Warm and dry, Intact Results Labs 02/10/25 07:41 Labs: Laboratory Results - last 24 hr 02/09/25 02/10/25 02/10/25 21:47 07:41 07:51 Anion Gap 9 L Estim Creat Clear Calc 177.0 Estimated GFR > 60 POC Glucose 190 H 105 Random Glucose 110 Estimat Average Glucose 137 Hemoglobin A1c % 6.4 H Calcium 8.5 Total Bilirubin 0.3 AST 18 ALT 15 Alkaline Phosphatase 50 Total Protein 6.2 L Albumin 3.7 Triglycerides 95 Cholesterol 98 LDL Cholesterol, Calc 49 HDL Cholesterol 30 L TSH 0.88 Free T4 0.88 Valproic Acid 23.5 L [place] 0.31 L Assessment and Plan (1) Atypical chest pain: Status: Acute Plan 49-year-old with past medical history listed below presented to inpatient psych after initially presenting to the ED at [facility] with chest pain, ACS was ruled out and he subsequently reported SI and was evaluated and deemed to be appropriate for inpatient psychiatric care. Bipolar disorder/mood disorder/PTSD/depression/autism Treatment per psychiatric team Hypothyroidism Continue current dose TSH and free T4 within normal limits Type 2 diabetes Recent A1c 6.4 Continue with metformin Atypical chest pain Patient has had several workups at [facility] including [facility] and [facility] Has had negative workups to date. EKG last evening within normal limits Self reports history of MIs in his 20s. Unverifiable after attempts to obtain outside records. Patient is unclear on several dates. Poor historian. No further cardiac workup recommended at this time. Patient is reporting chest pain this morning to nursing, he declined troponin or EKG today. It is recommended that patient follow up with an outpatient janitor head for further workup and testing. Hypertension/hyperlipidemia/history of PE-Self reported from in [place] in 2024. Continue with propranolol, lisinopril, Xarelto and atorvastatin
[2025-02-10 08:44] VITALS: BP 126/70; PULSE 76; RESP 16; TEMP 36.6; O2SAT 96
[2025-02-10] MEDS: Ferrous Sulfate 324 MG TABLET.DR PO (08:47)
--- NOTE | 2025-02-10 09:08 | P.PNPSI_ITS ---
Subjective Subjective Date of Service: 02/10/25 Reason For Visit: F43.10 PTSD F79 Intellecturl d/o Subjective Notes: Conditional Voluntary Interim History: Active on unit. Patient reports feeling depressed ; pt stated, this time of year makes me suicidal because my mom was a holiday person and shes not with us. I usually feel good after being inpatient . Patient reports he is also looking for housing; pt educated that the social workers do not help with housing. Patient denies SI/HI/VH. He reports auditory hallucinations telling him to harm himself; pt stated, I would never act on it because I think of my daughter . [place] level 0.31 and Valproic acid level 23.5 on 02/10/25. Continue tx plan. Medication Compliance: Yes Side effects from medications: No Attending Groups: Yes Mental Status Exam Mental Status Exam Narrative: Pt is alert and oriented; behavior is cooperative and calm; dressed in casual attire; mood is described as depressed ; eye contact appropriate; Speech is normal rate, volume and not pressured; thought process is organized; Thought content is on tx; denies SI/HI/VH. +AH telling him to harm himself. Diagnostics Vital Signs (24Hr): Vital Signs - 24 hr 02/09/25 15:50 02/09/25 20:00 02/09/25 21:50 Temperature 97.8 F 99.1 F Pulse Rate 94 90 Respiratory Rate 18 18 Blood Pressure 128/64 123/62 128/64 Pulse Oximetry 94 95 Oxygen Delivery Method Room Air Room Air 02/10/25 08:44 Temperature 97.8 F Pulse Rate 76 Respiratory Rate 16 Blood Pressure 126/70 Pulse Oximetry 96 Oxygen Delivery Method Room Air BMI result Body Mass Index 38.8 Labs 02/10/25 07:41 Labs: Laboratory Results - last 48 hr 02/09/25 02/10/25 02/10/25 21:47 07:41 07:51 Sodium 139 Potassium 4.1 Chloride 110 H Carbon Dioxide 24 Anion Gap 9 L BUN 15 Creatinine 0.67 Estim Creat Clear Calc 177.0 Estimated GFR > 60 POC Glucose 190 H 105 Random Glucose 110 Estimat Average Glucose 137 Hemoglobin A1c % 6.4 H Calcium 8.5 Total Bilirubin 0.3 AST 18 ALT 15 Alkaline Phosphatase 50 Total Protein 6.2 L Albumin 3.7 Triglycerides 95 Cholesterol 98 LDL Cholesterol, Calc 49 HDL Cholesterol 30 L TSH 0.88 Free T4 0.88 Valproic Acid 23.5 L [place] 0.31 L Medications Medications Current Medications Acetaminophen (Acetaminophen 325 Mg Tablet) 650 mg PO Q6H PRN PRN Reason: Headache/Pain, Scale 1-10 Al Hydroxide/Mg Hydroxide (Magnesium Hydrox/Alum Hydrox 30 Ml Oral.Susp) 30 ml PO Q6H PRN PRN Reason: Heartburn/Nausea Albuterol Sulfate (Albuterol Sulfate 90 Mcg 8 Gm Inhaler) 2 puff INHALE Q6H PRN PRN Reason: Shortness of Breath Atorvastatin Calcium (Atorvastatin Calcium 80 Mg Tablet) 80 mg PO BEDTIME [facility] Last Admin: 02/09/25 21:51 Dose: 80 mg Atorvastatin Calcium (Atorvastatin Calcium 40 Mg Tablet) 40 mg PO BEDTIME [facility] Last Admin: 02/09/25 21:51 Dose: 40 mg Clopidogrel Bisulfate (Clopidogrel Bisulfate 75 Mg Tablet) 75 mg PO DAILY [facility] Last Admin: 02/10/25 08:47 Dose: 75 mg Dextrose (Dextrose 50 % 25 Gm/50 Ml Syringe) 25 gm IVPUSH Q15M PRN; Protocol PRN Reason: per Hypoglycemia Standing Ord. Divalproex Sodium (Divalproex Sodium 250 Mg Tablet.) 250 mg PO BEDTIME [facility] Last Admin: 02/09/25 21:50 Dose: 250 mg Divalproex Sodium (Divalproex Sodium 500 Mg Tablet.) 1,000 mg PO DAILY [facility] Last Admin: 02/10/25 08:47 Dose: 1,000 mg Escitalopram Oxalate (Escitalopram Oxalate 10 Mg Tablet) 10 mg PO DAILY [facility] Last Admin: 02/10/25 08:46 Dose: 10 mg Ferrous Sulfate (Ferrous Sulfate 324 Mg Tablet.) 324 mg PO DAILY [facility] Last Admin: 02/10/25 08:47 Dose: 324 mg Glucose (Glucose Gel 15 Gm Gel..Gram.) 15 gm PO Q15M PRN; Protocol PRN Reason: per Hypoglycemia Standing Ord. Hydroxyzine HCl (Hydroxyzine Hcl 25 Mg Tablet) 25 mg PO Q6H PRN PRN Reason: mild anxiety Insulin Human Lispro (Insulin Lispro 100 Unit/Ml 3 Ml Vial) 0 unit SUBCUT QIDACHS [facility]; Protocol Last Admin: 02/10/25 08:45 Dose: Not Given Levothyroxine Sodium (Levothyroxine Sodium 25 Mcg Tablet) 25 mcg PO DAILY@0630 [facility] Last Admin: 02/10/25 06:23 Dose: 25 mcg Lisinopril (Lisinopril 20 Mg Tablet) 20 mg PO DAILY [facility]; Protocol Last Admin: 02/10/25 08:46 Dose: 20 mg [place] Carbonate ([place] Carbonate 300 Mg Capsule) 600 mg PO BID [facility] Last Admin: 02/10/25 08:49 Dose: 600 mg Magnesium Hydroxide (Milk Of Magnesia 30 Ml Oral.Susp) 30 ml PO DAILY PRN PRN Reason: Constipation Metformin HCl (Metformin Hcl 500 Mg Tablet) 500 mg PO DAILY [facility] Last Admin: 02/10/25 08:49 Dose: 500 mg Nicotine (Nicotine 21 Mg Patch.Td24) 21 mg TRANSDERMA DAILY PRN PRN Reason: nicotine craving Nicotine Polacrilex (Nicotine Polacrilex 2 Mg Gum) 2 mg BUCCAL Q2H PRN PRN Reason: Nicotine Cravings Omeprazole (Omeprazole 20 Mg Capsule.Dr) 20 mg PO DAILY@0630 [facility] Last Admin: 02/10/25 06:23 Dose: 20 mg Propranolol HCl (Propranolol Hcl 20 Mg Tablet) 20 mg PO BID [facility]; Protocol Last Admin: 02/10/25 08:48 Dose: 20 mg Quetiapine Fumarate (Quetiapine Fumarate 400 Mg Tablet) 400 mg PO BEDTIME [facility] Last Admin: 02/09/25 21:49 Dose: 400 mg Rivaroxaban (Rivaroxaban 20 Mg Tablet) 20 mg PO DAILY@1700 [facility] Trazodone HCl (Trazodone Hcl 50 Mg Tablet) 50 mg PO BEDTIME MRX1 PRN PRN Reason: Insomnia Vitamin D (Cholecalciferol (Vitamin D3) 25 Mcg Tablet) 25 mcg PO DAILY [facility] Last Admin: 02/10/25 08:48 Dose: 25 mcg Allergies Allergies Allergy/AdvReac Type Severity Reaction Status Date / Time acetaminophen (From TYLENOL) Allergy Severe ANAPHYLAXIS Verified 02/10/25 07:50 aspirin (ASA) Allergy Severe ANAPHYLAXIS Verified 02/10/25 07:50 nitroglycerin (NITROGLYCERIN) Allergy Severe ANAPHYLAXIS Verified 02/10/25 07:50 amoxicillin (AMOXICILLIN) Allergy Mild RASH Verified 02/10/25 07:50 fish derived (fish) Allergy Anaphylaxis Verified 02/10/25 07:50 ibuprofen Allergy Anaphylaxis Verified 02/10/25 07:50 Poultry Allergy Anaphylaxis Verified 02/10/25 07:50 Assessment & Plan Assessment & Plan (1) Bipolar II disorder: Status: Acute Code(s): F31.81 - Bipolar II disorder (2) PTSD (post-traumatic stress disorder): Status: Acute Code(s): F43.10 - Post-traumatic stress disorder, unspecified Plan HPI: Patient is a 51y.o male with hx of of CAD C/b [place] x6, stent x2, CHF, HTN, HLD, DM II, A Fib, COPD, Bipolar II, schizophrenic, PTSD who presenting to [facility] ED with chest pain. Symptoms started 3 days ago, were intermittent at first but has come constant. Upon finishing up with his support for chest pain, patient reports to the nurse that he is having SI with plan to jump off a bridge or building. Report that Feb/Mar is difficult for him as his mother has and the holidays are difficult d/t this. Report medications may not be working anymore. Also report that most suicide attempt was in September of this year by jumping in front of a truck. Report VH of his father coming after him with a gun. Formulation/clinical reasoning: Being homeless, Nov/Dec, holidays this time of the year is difficult as mom around this time. Increasing in depression and anxiety, Increasing in AVH. Given hx of PTSD, Bipolar II, SI with plan, patient would benefit in restrictive environment for own safety, medication adjustment and refer patient back to OP psychiatric services for aftercare plan. Hospital course: 02/09/25: Continue with home meds. patient has good knowledge and dosage of medications he supposes take daily. Agree with lab work for VPA and [place] level for 02/10/25. Nursing contacted during period of this note is written as patient reports Left side chest pain 10/10. Vs stable with slight elevated BP (153/76). Patient self reports vomited twice with blood -unwitnessed per nursing report. Will order Stat EKG. Order Stat EKG: NRS, Normal EKG for report severe left chest pain 10/10 which is similar to the pain he came in to ED for. Will continue to monitor and provide emotional support as needed. Plan Patient on 15 minute checks for safety. Admitted to M3. CV. Work with treatment team to do collateral. Contact the hospitalist regarding hospitalist consultation on admission: pending Physical Assessment H&P Per [facility] ED record: EKGs: a couple were done, Unremarkable. Request pain medication multiple times. Creatinine 0.60. Mag 1.7. BAL negative. +Opiate. Chest xray 2 view: unremarkable. 02/10: Active on unit. Patient reports feeling depressed ; pt stated, this time of year makes me suicidal because my mom was a holiday person and shes not with us. I usually feel good after being inpatient . Patient reports he is also looking for housing; pt educated that the social workers do not help with housing. Patient denies SI/HI/VH. He reports auditory hallucinations telling him to harm himself; pt stated, I would never act on it because I think of my daughter . [place] level 0.31 and Valproic acid level 23.5 on 02/10/25. Continue tx plan. Patient educated on: diagnosis and medication risk/benefits Reason for continued inpatient stay Substantial Risk for: med/psych decompensation Time Spent With Patient Time: Total time managing care of this patient today _20___ minutes.
[2025-02-10 12:00] LABS: Glucose, Whole Blood 110 mg/dL (60-115)
[2025-02-10 17:01] LABS: Glucose, Whole Blood 161 mg/dL (60-115)
[2025-02-10 20:00] VITALS: BP 139/71; PULSE 89; RESP 16; TEMP 37.1; O2SAT 96
[2025-02-10 21:00] LABS: Glucose, Whole Blood 197 mg/dL (60-115)
--- NOTE | 2025-02-11 | ECG_ITS ---
Test Reason : chest pain Blood Pressure : */* mmHG Vent. Rate : 92 BPM Atrial Rate : 92 BPM P-R Int : 178 ms QRS Dur : 94 ms QT Int : 354 ms P-R-T Axes : 51 33 54 degrees QTcB Int : 437 ms Normal sinus rhythm Possible Inferior infarct , age undetermined Possible Anterior infarct , age undetermined Abnormal ECG When compared with ECG of 03-Oct-2024 17:27, Borderline criteria for Anterior infarct are now Present Nonspecific T wave abnormality now evident in Anterior leads Referred By: Carlee Paul Electronically Signed By: Xander Pavon
[2025-02-11 07:48] LABS: Glucose, Whole Blood 121 mg/dL (60-115)
[2025-02-11 09:11] VITALS: BP 122/56; PULSE 78; RESP 20; TEMP 36.8; O2SAT 94
[2025-02-11 09:18] VITALS: BP 122/56; PULSE 94
[2025-02-11] MEDS: Ferrous Sulfate 324 MG TABLET.DR PO (09:18)
[2025-02-11 12:00] LABS: Glucose, Whole Blood 72 mg/dL (60-115)
--- NOTE | 2025-02-11 12:56 | HO.PSYCHPN ---
Subjective Subjective Date of Service: 02/11/25 Reason For Visit: F43.10 PTSD F79 Intellecturl d/o Subjective Notes: Conditional Voluntary Interim History: Active on unit. attending groups. Patient continues to report feeling depressed ; pt stated, I miss my mom and whole family . He reports suicidal ideation with plan to jump off a bridge ; +AH of feather voice telling me to harm myself . denies HI/VH. He reports hx of Seroquel PRN helping him in the past and requesting to be prescribed this. Added: Seroquel 25mg PO BID PRN. Will redraw Valproic acid level Sunday and Honalo level over the weekend. Medication Compliance: Yes Side effects from medications: No Attending Groups: Yes Mental Status Exam Mental Status Exam Narrative: Pt is alert and oriented; behavior is cooperative and calm; dressed in casual attire; mood is described as depressed ; eye contact appropriate; Speech is normal rate, volume and not pressured; thought process is organized; Thought content is on tx; denies HI/VH. +AH telling him to harm himself. +SI to jump off bridge . Diagnostics Vital Signs (24Hr): Vital Signs - 24 hr 02/10/25 20:00 02/11/25 09:11 02/11/25 09:18 Temperature 98.8 F 98.3 F Pulse Rate 89 78 Respiratory Rate 16 20 Blood Pressure 139/71 122/56 L 122/56 L Pulse Oximetry 96 94 Oxygen Delivery Method Room Air Room Air 02/11/25 09:18 Temperature Pulse Rate 94 Respiratory Rate Blood Pressure Pulse Oximetry Oxygen Delivery Method BMI result Body Mass Index 38.8 Labs 02/10/25 07:41 Labs: Laboratory Results - last 48 hr 02/09/25 02/10/25 02/10/25 21:47 07:41 07:51 Sodium 139 Potassium 4.1 Chloride 110 H Carbon Dioxide 24 Anion Gap 9 L BUN 15 Creatinine 0.67 Estim Creat Clear Calc 177.0 Estimated GFR > 60 POC Glucose 190 H 105 Random Glucose 110 Estimat Average Glucose 137 Hemoglobin A1c % 6.4 H Calcium 8.5 Total Bilirubin 0.3 AST 18 ALT 15 Alkaline Phosphatase 50 Total Protein 6.2 L Albumin 3.7 Triglycerides 95 Cholesterol 98 LDL Cholesterol, Calc 49 HDL Cholesterol 30 L TSH 0.88 Free T4 0.88 Valproic Acid 23.5 L Honalo 0.31 L 02/10/25 02/10/25 02/10/25 11:56 16:56 20:56 Sodium Potassium Chloride Carbon Dioxide Anion Gap BUN Creatinine Estim Creat Clear Calc Estimated GFR POC Glucose 110 161 H 197 H Random Glucose Estimat Average Glucose Hemoglobin A1c % Calcium Total Bilirubin AST ALT Alkaline Phosphatase Total Protein Albumin Triglycerides Cholesterol LDL Cholesterol, Calc HDL Cholesterol TSH Free T4 Valproic Acid Honalo 02/11/25 02/11/25 07:43 11:56 Sodium Potassium Chloride Carbon Dioxide Anion Gap BUN Creatinine Estim Creat Clear Calc Estimated GFR POC Glucose 121 H 72 Random Glucose Estimat Average Glucose Hemoglobin A1c % Calcium Total Bilirubin AST ALT Alkaline Phosphatase Total Protein Albumin Triglycerides Cholesterol LDL Cholesterol, Calc HDL Cholesterol TSH Free T4 Valproic Acid Honalo Medications Medications Current Medications Al Hydroxide/Mg Hydroxide (Magnesium Hydrox/Alum Hydrox 30 Ml Oral.Susp) 30 ml PO Q6H PRN PRN Reason: Heartburn/Nausea Albuterol Sulfate (Albuterol Sulfate 90 Mcg 8 Gm Inhaler) 2 puff INHALE Q6H PRN PRN Reason: Shortness of Breath Atorvastatin Calcium (Atorvastatin Calcium 40 Mg Tablet) 40 mg PO BEDTIME [facility] Last Admin: 02/10/25 20:45 Dose: 40 mg Clopidogrel Bisulfate (Clopidogrel Bisulfate 75 Mg Tablet) 75 mg PO DAILY [facility] Last Admin: 02/11/25 09:18 Dose: 75 mg Dextrose (Dextrose 50 % 25 Gm/50 Ml Syringe) 25 gm IVPUSH Q15M PRN; Protocol PRN Reason: per Hypoglycemia Standing Ord. Divalproex Sodium (Divalproex Sodium 250 Mg Tablet.) 250 mg PO BEDTIME [facility] Last Admin: 02/10/25 20:44 Dose: 250 mg Divalproex Sodium (Divalproex Sodium 500 Mg Tablet.) 1,000 mg PO DAILY [facility] Last Admin: 02/11/25 09:18 Dose: 1,000 mg Escitalopram Oxalate (Escitalopram Oxalate 10 Mg Tablet) 10 mg PO DAILY [facility] Last Admin: 02/11/25 09:18 Dose: 10 mg Ferrous Sulfate (Ferrous Sulfate 324 Mg Tablet.) 324 mg PO DAILY [facility] Last Admin: 02/11/25 09:18 Dose: 324 mg Glucose (Glucose Gel 15 Gm Gel..Gram.) 15 gm PO Q15M PRN; Protocol PRN Reason: per Hypoglycemia Standing Ord. Hydroxyzine HCl (Hydroxyzine Hcl 25 Mg Tablet) 25 mg PO Q6H PRN PRN Reason: mild anxiety Insulin Human Lispro (Insulin Lispro 100 Unit/Ml 3 Ml Vial) 0 unit SUBCUT QIDACHS [facility]; Protocol Last Admin: 02/11/25 12:00 Dose: Not Given Levothyroxine Sodium (Levothyroxine Sodium 25 Mcg Tablet) 25 mcg PO DAILY@0630 [facility] Last Admin: 02/11/25 06:13 Dose: 25 mcg Lisinopril (Lisinopril 20 Mg Tablet) 20 mg PO DAILY [facility]; Protocol Last Admin: 02/11/25 09:18 Dose: 20 mg Honalo Carbonate (Honalo Carbonate 300 Mg Capsule) 600 mg PO BID [facility] Last Admin: 02/11/25 09:18 Dose: 600 mg Magnesium Hydroxide (Milk Of Magnesia 30 Ml Oral.Susp) 30 ml PO DAILY PRN PRN Reason: Constipation Metformin HCl (Metformin Hcl 500 Mg Tablet) 500 mg PO DAILY [facility] Last Admin: 02/11/25 09:18 Dose: 500 mg Nicotine (Nicotine 21 Mg Patch.Td24) 21 mg TRANSDERMA DAILY PRN PRN Reason: nicotine craving Nicotine Polacrilex (Nicotine Polacrilex 2 Mg Gum) 2 mg BUCCAL Q2H PRN PRN Reason: Nicotine Cravings Omeprazole (Omeprazole 20 Mg Capsule.Dr) 20 mg PO DAILY@0630 [facility] Last Admin: 02/11/25 06:14 Dose: 20 mg Propranolol HCl (Propranolol Hcl 20 Mg Tablet) 20 mg PO BID [facility]; Protocol Last Admin: 02/11/25 09:18 Dose: 20 mg Quetiapine Fumarate (Quetiapine Fumarate 400 Mg Tablet) 400 mg PO BEDTIME [facility] Last Admin: 02/10/25 20:44 Dose: 400 mg Rivaroxaban (Rivaroxaban 20 Mg Tablet) 20 mg PO DAILY@1700 [facility] Last Admin: 02/10/25 17:14 Dose: 20 mg Trazodone HCl (Trazodone Hcl 50 Mg Tablet) 50 mg PO BEDTIME MRX1 PRN PRN Reason: Insomnia Vitamin D (Cholecalciferol (Vitamin D3) 25 Mcg Tablet) 25 mcg PO DAILY [facility] Last Admin: 02/11/25 09:18 Dose: 25 mcg Allergies Allergies Allergy/AdvReac Type Severity Reaction Status Date / Time acetaminophen (From TYLENOL) Allergy Severe ANAPHYLAXIS Verified 02/10/25 07:50 aspirin (ASA) Allergy Severe ANAPHYLAXIS Verified 02/10/25 07:50 nitroglycerin (NITROGLYCERIN) Allergy Severe ANAPHYLAXIS Verified 02/10/25 07:50 amoxicillin (AMOXICILLIN) Allergy Mild RASH Verified 02/10/25 07:50 fish derived (fish) Allergy Anaphylaxis Verified 02/10/25 07:50 ibuprofen Allergy Anaphylaxis Verified 02/10/25 07:50 Poultry Allergy Anaphylaxis Verified 02/10/25 07:50 Assessment & Plan Assessment & Plan (1) Bipolar II disorder: Status: Acute Code(s): F31.81 - Bipolar II disorder (2) PTSD (post-traumatic stress disorder): Status: Acute Code(s): F43.10 - Post-traumatic stress disorder, unspecified Plan HPI: Patient is a 51y.o male with hx of of CAD C/b CT x6, stent x2, CHF, HTN, HLD, DM II, A Fib, COPD, Bipolar II, schizophrenic, PTSD who presenting to [facility] ED with chest pain. Symptoms started 3 days ago, were intermittent at first but has come constant. Upon finishing up with his support for chest pain, patient reports to the nurse that he is having SI with plan to jump off a bridge or building. Report that Nov/Dec is difficult for him as his mother has and the holidays are difficult d/t this. Report medications may not be working anymore. Also report that most suicide attempt was in September of this year by jumping in front of a truck. Report VH of his father coming after him with a gun. Formulation/clinical reasoning: Being homeless, Nov/Dec, holidays this time of the year is difficult as mom around this time. Increasing in depression and anxiety, Increasing in AVH. Given hx of PTSD, Bipolar II, SI with plan, patient would benefit in restrictive environment for own safety, medication adjustment and refer patient back to OP psychiatric services for aftercare plan. Hospital course: 02/09/25: Continue with home meds. patient has good knowledge and dosage of medications he supposes take daily. Agree with lab work for VPA and Honalo level for 02/10/25. Nursing contacted during period of this note is written as patient reports Left side chest pain 01/16. Vs stable with slight elevated BP (153/76). Patient self reports vomited twice with blood -unwitnessed per nursing report. Will order Stat EKG. Order Stat EKG: NRS, Normal EKG for report severe left chest pain 10/10 which is similar to the pain he came in to ED for. Will continue to monitor and provide emotional support as needed. Plan Patient on 15 minute checks for safety. Admitted to M3. CV. Work with treatment team to do collateral. Contact the hospitalist regarding hospitalist consultation on admission: pending Physical Assessment H&P Per [facility] ED record: EKGs: a couple were done, Unremarkable. Request pain medication multiple times. Creatinine 0.60. Mag 1.7. BAL negative. +Opiate. Chest xray 2 view: unremarkable. 02/10: Active on unit. Patient reports feeling depressed ; pt stated, this time of year makes me suicidal because my mom was a holiday person and shes not with us. I usually feel good after being inpatient . Patient reports he is also looking for housing; pt educated that the social workers do not help with housing. Patient denies SI/HI/VH. He reports auditory hallucinations telling him to harm himself; pt stated, I would never act on it because I think of my daughter . Honalo level 0.31 and Valproic acid level 23.5 on 02/10/25. Continue tx plan. 02/11: Active on unit. attending groups. Patient continues to report feeling depressed ; pt stated, I miss my mom and whole family . He reports suicidal ideation with plan to jump off a bridge ; +AH of feather voice telling me to harm myself . denies HI/VH. He reports hx of Seroquel PRN helping him in the past and requesting to be prescribed this. Added: Seroquel 25mg PO BID PRN. Will redraw Valproic acid level Sunday and Honalo level over the weekend. Patient educated on: diagnosis, medication risk/benefits and therapeutic strategies Reason for continued inpatient stay Substantial Risk for: harm to self and med/psych decompensation Time Spent With Patient Time: Total time managing care of this patient today _20___ minutes.
[2025-02-11 16:15] LABS: Glucose, Whole Blood 84 mg/dL (60-115)
[2025-02-11] MEDS: Albuterol Sulfate 90 MCG 8 GM INHALER 2 PUFF INHALE (18:31)
--- NOTE | 2025-02-11 18:47 | PC.NURSE ---
Patient c/o chest pain #10, reporting it has been happening for 1.5 hours. Reports L arm radiation, pain into neck, jaw and my back . States I can't breathe . Denies indigestion, declines mylanta. Albuterol inhaler administered. BP 121/67, RR 20, HR 98, SPO2 95 RA. No diaphoresis. Sitting calmly in common areas. Prescriber Carlee Paul notified. Stat EKG ordered and obtained. Image sent to Carlee for review. No further interventions at this time.
[2025-02-11 20:00] VITALS: BP 133/70; PULSE 91; RESP 18; TEMP 36.9; O2SAT 94
[2025-02-11 20:21] LABS: Glucose, Whole Blood 108 mg/dL (60-115)
[2025-02-12 07:00] VITALS: BMI 38.8
[2025-02-12 07:28] LABS: Glucose, Whole Blood 114 mg/dL (60-115)
[2025-02-12 07:58] VITALS: BP 107/55; PULSE 74; RESP 16; TEMP 36.4; O2SAT 95
[2025-02-12] MEDS: Ferrous Sulfate 324 MG TABLET.DR PO (08:26)
--- NOTE | 2025-02-12 09:19 | P.PNPSI_ITS ---
Subjective Subjective Date of Service: 02/12/25 Reason For Visit: F43.10 PTSD F79 Intellecturl d/o Subjective Notes: Conditional Voluntary Interim History: Patient continues to report feeling depressed ; pt stated, I feel like my depression is getting worse. I can't explain it . He continues to reports suicidal ideation; +AH of father voice telling me to harm myself . denies HI/VH. Valproic acid level ordered; awaiting results. Patient worried about where I'm going to go after here . Continue tx plan. Medication Compliance: Yes Side effects from medications: No Attending Groups: Yes Mental Status Exam Mental Status Exam Narrative: Pt is alert and oriented; behavior is cooperative and calm; dressed in casual attire; mood is described as depressed ; eye contact appropriate; Speech is normal rate, volume and not pressured; thought process is organized; Thought content is on tx; denies HI/VH. +AH telling him to harm himself. +SI to jump off bridge . Diagnostics Vital Signs (24Hr): Vital Signs - 24 hr 02/11/25 20:00 02/12/25 07:58 Temperature 98.5 F 97.6 F Pulse Rate 91 74 Respiratory Rate 18 16 Blood Pressure 133/70 107/55 L Pulse Oximetry 94 95 Oxygen Delivery Method Room Air BMI result Body Mass Index 38.8 Labs 02/10/25 07:41 Labs: Laboratory Results - last 48 hr 02/10/25 02/10/25 02/10/25 11:56 16:56 20:56 POC Glucose 110 161 H 197 H 02/11/25 02/11/25 02/11/25 07:43 11:56 16:10 POC Glucose 121 H 72 84 02/11/25 02/12/25 20:15 07:25 POC Glucose 108 114 Medications Medications Current Medications Al Hydroxide/Mg Hydroxide (Magnesium Hydrox/Alum Hydrox 30 Ml Oral.Susp) 30 ml PO Q6H PRN PRN Reason: Heartburn/Nausea Albuterol Sulfate (Albuterol Sulfate 90 Mcg 8 Gm Inhaler) 2 puff INHALE Q6H PRN PRN Reason: Shortness of Breath Last Admin: 02/11/25 18:31 Dose: 2 puff Atorvastatin Calcium (Atorvastatin Calcium 40 Mg Tablet) 40 mg PO BEDTIME [facility] Last Admin: 02/11/25 20:59 Dose: 40 mg Clopidogrel Bisulfate (Clopidogrel Bisulfate 75 Mg Tablet) 75 mg PO DAILY [facility] Last Admin: 02/12/25 08:26 Dose: 75 mg Dextrose (Dextrose 50 % 25 Gm/50 Ml Syringe) 25 gm IVPUSH Q15M PRN; Protocol PRN Reason: per Hypoglycemia Standing Ord. Divalproex Sodium (Divalproex Sodium 250 Mg Tablet.) 250 mg PO BEDTIME [facility] Last Admin: 02/11/25 21:01 Dose: 250 mg Divalproex Sodium (Divalproex Sodium 500 Mg Tablet.) 1,000 mg PO DAILY [facility] Last Admin: 02/12/25 08:26 Dose: 1,000 mg Escitalopram Oxalate (Escitalopram Oxalate 10 Mg Tablet) 10 mg PO DAILY [facility] Last Admin: 02/12/25 08:25 Dose: 10 mg Ferrous Sulfate (Ferrous Sulfate 324 Mg Tablet.) 324 mg PO DAILY [facility] Last Admin: 02/12/25 08:26 Dose: 324 mg Glucose (Glucose Gel 15 Gm Gel..Gram.) 15 gm PO Q15M PRN; Protocol PRN Reason: per Hypoglycemia Standing Ord. Hydroxyzine HCl (Hydroxyzine Hcl 25 Mg Tablet) 25 mg PO Q6H PRN PRN Reason: mild anxiety Insulin Human Lispro (Insulin Lispro 100 Unit/Ml 3 Ml Vial) 0 unit SUBCUT QIDACHS [facility]; Protocol Last Admin: 02/12/25 08:26 Dose: Not Given Levothyroxine Sodium (Levothyroxine Sodium 25 Mcg Tablet) 25 mcg PO DAILY@0630 [facility] Last Admin: 02/12/25 06:31 Dose: 25 mcg Lisinopril (Lisinopril 20 Mg Tablet) 20 mg PO DAILY [facility]; Protocol Last Admin: 02/12/25 08:25 Dose: [address] Carbonate (Lane Carbonate 300 Mg Capsule) 600 mg PO BID [facility] Last Admin: 02/12/25 08:25 Dose: 600 mg Magnesium Hydroxide (Milk Of Magnesia 30 Ml Oral.Susp) 30 ml PO DAILY PRN PRN Reason: Constipation Metformin HCl (Metformin Hcl 500 Mg Tablet) 500 mg PO DAILY [facility] Last Admin: 02/12/25 08:26 Dose: 500 mg Omeprazole (Omeprazole 20 Mg Capsule.) 20 mg PO DAILY@0630 [facility] Last Admin: 02/12/25 06:31 Dose: 20 mg Propranolol HCl (Propranolol Hcl 20 Mg Tablet) 20 mg PO BID [facility]; Protocol Last Admin: 02/12/25 08:26 Dose: 20 mg Quetiapine Fumarate (Quetiapine Fumarate 400 Mg Tablet) 400 mg PO BEDTIME [facility] Last Admin: 02/11/25 20:59 Dose: 400 mg Quetiapine Fumarate (Quetiapine Fumarate 25 Mg Tablet) 25 mg PO BID PRN PRN Reason: Anxiety, mild Rivaroxaban (Rivaroxaban 20 Mg Tablet) 20 mg PO DAILY@1700 [facility] Last Admin: 02/11/25 17:17 Dose: 20 mg Trazodone HCl (Trazodone Hcl 50 Mg Tablet) 50 mg PO BEDTIME MRX1 PRN PRN Reason: Insomnia Vitamin D (Cholecalciferol (Vitamin D3) 25 Mcg Tablet) 25 mcg PO DAILY [facility] Last Admin: 02/12/25 08:25 Dose: 25 mcg Allergies Allergies Allergy/AdvReac Type Severity Reaction Status Date / Time acetaminophen (From TYLENOL) Allergy Severe ANAPHYLAXIS Verified 02/10/25 07:50 aspirin (ASA) Allergy Severe ANAPHYLAXIS Verified 02/10/25 07:50 nitroglycerin (NITROGLYCERIN) Allergy Severe ANAPHYLAXIS Verified 02/10/25 07:50 amoxicillin (AMOXICILLIN) Allergy Mild RASH Verified 02/10/25 07:50 fish derived (fish) Allergy Anaphylaxis Verified 02/10/25 07:50 ibuprofen Allergy Anaphylaxis Verified 02/10/25 07:50 Poultry Allergy Anaphylaxis Verified 02/10/25 07:50 Assessment & Plan Assessment & Plan (1) Bipolar II disorder: Status: Acute Code(s): F31.81 - Bipolar II disorder (2) PTSD (post-traumatic stress disorder): Status: Acute Code(s): F43.10 - Post-traumatic stress disorder, unspecified Plan HPI: Patient is a 51y.o male with hx of of CAD C/b OR x6, stent x2, CHF, HTN, HLD, DM II, A Fib, COPD, Bipolar II, schizophrenic, PTSD who presenting to [facility] ED with chest pain. Symptoms started 3 days ago, were intermittent at first but has come constant. Upon finishing up with his support for chest pain, patient reports to the nurse that he is having SI with plan to jump off a bridge or building. Report that Feb/Mar is difficult for him as his mother has and the holidays are difficult d/t this. Report medications may not be working anymore. Also report that most suicide attempt was in September of this year by jumping in front of a truck. Report VH of his father coming after him with a gun. Formulation/clinical reasoning: Being homeless, Feb/Mar, holidays this time of the year is difficult as mom around this time. Increasing in depression and anxiety, Increasing in AVH. Given hx of PTSD, Bipolar II, SI with plan, patient would benefit in restrictive environment for own safety, medication adjustment and refer patient back to OP psychiatric services for aftercare plan. Hospital course: 02/09/25: Continue with home meds. patient has good knowledge and dosage of medications he supposes take daily. Agree with lab work for VPA and Lane level for 02/10/25. Nursing contacted during period of this note is written as patient reports Left side chest pain 01/16. Vs stable with slight elevated BP (153/76). Patient self reports vomited twice with blood -unwitnessed per nursing report. Will order Stat EKG. Order Stat EKG: NRS, Normal EKG for report severe left chest pain 01/16 which is similar to the pain he came in to ED for. Will continue to monitor and provide emotional support as needed. Plan Patient on 15 minute checks for safety. Admitted to M3. CV. Work with treatment team to do collateral. Contact the hospitalist regarding hospitalist consultation on admission: pending Physical Assessment H&P Per [facility] ED record: EKGs: a couple were done, Unremarkable. Request pain medication multiple times. Creatinine 0.60. Mag 1.7. BAL negative. +Opiate. Chest xray 2 view: unremarkable. 02/10: Active on unit. Patient reports feeling depressed ; pt stated, this time of year makes me suicidal because my mom was a holiday person and shes not with us. I usually feel good after being inpatient . Patient reports he is also looking for housing; pt educated that the social workers do not help with housing. Patient denies SI/HI/VH. He reports auditory hallucinations telling him to harm himself; pt stated, I would never act on it because I think of my daughter . Lane level 0.31 and Valproic acid level 23.5 on 02/10/25. Continue tx plan. 02/11: Active on unit. attending groups. Patient continues to report feeling depressed ; pt stated, I miss my mom and whole family . He reports suicidal ideation with plan to jump off a bridge ; +AH of feather voice telling me to harm myself . denies HI/VH. He reports hx of Seroquel PRN helping him in the past and requesting to be prescribed this. Added: Seroquel 25mg PO BID PRN. Will redraw Valproic acid level Sunday and Lane level over the weekend. 02/12:Patient continues to report feeling depressed ; pt stated, I feel like my depression is getting worse. I can't explain it . He continues to reports suicidal ideation; +AH of father voice telling me to harm myself . denies HI/VH. Valproic acid level ordered; awaiting results. Patient worried about where I'm going to go after here . Continue tx plan. Patient educated on: diagnosis and medication risk/benefits Reason for continued inpatient stay Substantial Risk for: harm to self and med/psych decompensation Time Spent With Patient Time: Total time managing care of this patient today _20___ minutes.
[2025-02-12 12:01] LABS: Glucose, Whole Blood 78 mg/dL (60-115)
[2025-02-12 15:43] LABS: Ammonia 54 umol/L (13-55)
[2025-02-12 15:50] LABS: Alanine Aminotransferase 16 U/L (0-40); Albumin Level 4.1 g/dL (3.5-5.0); Alkaline Phosphatase 48 U/L (39-117); Aspartate Amino Transferase 20 U/L (5-37); Total Protein 7.1 g/dL (6.5-8.0)
[2025-02-12 16:49] LABS: Glucose, Whole Blood 119 mg/dL (60-115)
[2025-02-12 21:00] VITALS: BP 130/61; PULSE 93; RESP 18; TEMP 37; O2SAT 96
[2025-02-12 21:41] LABS: Glucose, Whole Blood 168 mg/dL (60-115)
[2025-02-13 07:56] LABS: Glucose, Whole Blood 113 mg/dL (60-115)
[2025-02-13 08:00] VITALS: BP 107/51; PULSE 74; RESP 20; TEMP 36.4; O2SAT 95
[2025-02-13] MEDS: Ferrous Sulfate 324 MG TABLET.DR PO (08:35)
--- NOTE | 2025-02-13 08:43 | HO.PSYCHPN ---
Subjective Subjective Date of Service: 02/13/25 Reason For Visit: F43.10 PTSD F79 Intellecturl d/o Subjective Notes: Conditional Voluntary Interim History: Patient continues to report feeling depressed ; pt reports chronic auditory hallucinations. He reports Seroquel PRN has been helpful in the past; encouraged to utilize his PRN Seroquel. He continues to reports suicidal ideation; no plan. denies HI/VH. Valproic acid level 31.4. [place] level ordered to be drawn on 02/15/25; pt aware. Medication Compliance: Yes Side effects from medications: No Attending Groups: Yes Mental Status Exam Mental Status Exam Narrative: Pt is alert and oriented; behavior is cooperative and calm; dressed in casual attire; mood is described as depressed ; eye contact appropriate; Speech is normal rate, volume and not pressured; thought process is organized; Thought content is on tx; denies HI/VH. +AH which he now reports is chronic. +SI with no plan. Diagnostics Vital Signs (24Hr): Vital Signs - 24 hr 02/12/25 21:00 02/13/25 08:00 Temperature 98.6 F 97.6 F Pulse Rate 93 74 Respiratory Rate 18 20 Blood Pressure 130/61 107/51 L Pulse Oximetry 96 95 Oxygen Delivery Method Room Air Room Air BMI result Body Mass Index 38.8 Labs 02/10/25 07:41 Labs: Laboratory Results - last 48 hr 02/11/25 02/11/25 02/11/25 11:56 16:10 20:15 POC Glucose 72 84 108 Total Bilirubin Direct Bilirubin AST ALT Alkaline Phosphatase Ammonia Total Protein Albumin Valproic Acid 02/12/25 02/12/25 02/12/25 07:25 11:57 15:27 POC Glucose 114 78 Total Bilirubin 0.2 Direct Bilirubin < 0.2 AST 20 ALT 16 Alkaline Phosphatase 48 Ammonia 54 Total Protein 7.1 Albumin 4.1 Valproic Acid 31.4 L 02/12/25 02/12/25 02/13/25 16:46 21:26 07:40 POC Glucose 119 H 168 H 113 Total Bilirubin Direct Bilirubin AST ALT Alkaline Phosphatase Ammonia Total Protein Albumin Valproic Acid Medications Medications Current Medications Al Hydroxide/Mg Hydroxide (Magnesium Hydrox/Alum Hydrox 30 Ml Oral.Susp) 30 ml PO Q6H PRN PRN Reason: Heartburn/Nausea Albuterol Sulfate (Albuterol Sulfate 90 Mcg 8 Gm Inhaler) 2 puff INHALE Q6H PRN PRN Reason: Shortness of Breath Last Admin: 02/11/25 18:31 Dose: 2 puff Atorvastatin Calcium (Atorvastatin Calcium 40 Mg Tablet) 40 mg PO BEDTIME [facility] Last Admin: 02/12/25 21:29 Dose: 40 mg Clopidogrel Bisulfate (Clopidogrel Bisulfate 75 Mg Tablet) 75 mg PO DAILY [facility] Last Admin: 02/13/25 08:35 Dose: 75 mg Dextrose (Dextrose 50 % 25 Gm/50 Ml Syringe) 25 gm IVPUSH Q15M PRN; Protocol PRN Reason: per Hypoglycemia Standing Ord. Divalproex Sodium (Divalproex Sodium 250 Mg Tablet.) 250 mg PO BEDTIME [facility] Last Admin: 02/12/25 21:29 Dose: 250 mg Divalproex Sodium (Divalproex Sodium 500 Mg Tablet.) 1,000 mg PO DAILY [facility] Last Admin: 02/13/25 08:35 Dose: 1,000 mg Escitalopram Oxalate (Escitalopram Oxalate 10 Mg Tablet) 10 mg PO DAILY [facility] Last Admin: 02/13/25 08:34 Dose: 10 mg Ferrous Sulfate (Ferrous Sulfate 324 Mg Tablet.) 324 mg PO DAILY [facility] Last Admin: 02/13/25 08:35 Dose: 324 mg Glucose (Glucose Gel 15 Gm Gel..Gram.) 15 gm PO Q15M PRN; Protocol PRN Reason: per Hypoglycemia Standing Ord. Hydroxyzine HCl (Hydroxyzine Hcl 25 Mg Tablet) 25 mg PO Q6H PRN PRN Reason: mild anxiety Insulin Human Lispro (Insulin Lispro 100 Unit/Ml 3 Ml Vial) 0 unit SUBCUT QIDACHS [facility]; Protocol Last Admin: 02/13/25 08:01 Dose: Not Given Levothyroxine Sodium (Levothyroxine Sodium 25 Mcg Tablet) 25 mcg PO DAILY@0630 [facility] Last Admin: 02/13/25 06:22 Dose: 25 mcg Lisinopril (Lisinopril 20 Mg Tablet) 20 mg PO DAILY [facility]; Protocol Last Admin: 02/13/25 08:34 Dose: 20 mg [place] Carbonate ([place] Carbonate 300 Mg Capsule) 600 mg PO BID [facility] Last Admin: 02/13/25 08:35 Dose: 600 mg Magnesium Hydroxide (Milk Of Magnesia 30 Ml Oral.Susp) 30 ml PO DAILY PRN PRN Reason: Constipation Metformin HCl (Metformin Hcl 500 Mg Tablet) 500 mg PO DAILY [facility] Last Admin: 02/13/25 08:35 Dose: 500 mg Omeprazole (Omeprazole 20 Mg Capsule.Dr) 20 mg PO DAILY@0630 [facility] Last Admin: 02/13/25 06:22 Dose: 20 mg Propranolol HCl (Propranolol Hcl 20 Mg Tablet) 20 mg PO BID [facility]; Protocol Last Admin: 02/13/25 08:35 Dose: 20 mg Quetiapine Fumarate (Quetiapine Fumarate 400 Mg Tablet) 400 mg PO BEDTIME [facility] Last Admin: 02/12/25 21:29 Dose: 400 mg Quetiapine Fumarate (Quetiapine Fumarate 25 Mg Tablet) 25 mg PO BID PRN PRN Reason: Anxiety, mild Rivaroxaban (Rivaroxaban 20 Mg Tablet) 20 mg PO DAILY@1700 [facility] Last Admin: 02/12/25 17:32 Dose: 20 mg Trazodone HCl (Trazodone Hcl 50 Mg Tablet) 50 mg PO BEDTIME MRX1 PRN PRN Reason: Insomnia Vitamin D (Cholecalciferol (Vitamin D3) 25 Mcg Tablet) 25 mcg PO DAILY [facility] Last Admin: 02/13/25 08:35 Dose: 25 mcg Allergies Allergies Allergy/AdvReac Type Severity Reaction Status Date / Time acetaminophen (From TYLENOL) Allergy Severe ANAPHYLAXIS Verified 02/10/25 07:50 aspirin (ASA) Allergy Severe ANAPHYLAXIS Verified 02/10/25 07:50 nitroglycerin (NITROGLYCERIN) Allergy Severe ANAPHYLAXIS Verified 02/10/25 07:50 amoxicillin (AMOXICILLIN) Allergy Mild RASH Verified 02/10/25 07:50 fish derived (fish) Allergy Anaphylaxis Verified 02/10/25 07:50 ibuprofen Allergy Anaphylaxis Verified 02/10/25 07:50 Poultry Allergy Anaphylaxis Verified 02/10/25 07:50 Assessment & Plan Assessment & Plan (1) Bipolar II disorder: Status: Acute Code(s): F31.81 - Bipolar II disorder (2) PTSD (post-traumatic stress disorder): Status: Acute Code(s): F43.10 - Post-traumatic stress disorder, unspecified Plan Patient is a 51y.o male with hx of of CAD C/b [place] x6, stent x2, CHF, HTN, HLD, DM II, A Fib, COPD, Bipolar II, schizophrenic, PTSD who presenting to [facility] ED with chest pain. Symptoms started 3 days ago, were intermittent at first but has come constant. Upon finishing up with his support for chest pain, patient reports to the nurse that he is having SI with plan to jump off a bridge or building. Report that Feb/Mar is difficult for him as his mother has and the holidays are difficult d/t this. Report medications may not be working anymore. Also report that most suicide attempt was in September of this year by jumping in front of a truck. Report VH of his father coming after him with a gun. Formulation/clinical reasoning: Being homeless, Nov/Mar, holidays this time of the year is difficult as mom around this time. Increasing in depression and anxiety, Increasing in AVH. Given hx of PTSD, Bipolar II, SI with plan, patient would benefit in restrictive environment for own safety, medication adjustment and refer patient back to OP psychiatric services for aftercare plan. 02/09:Continue with home meds. patient has good knowledge and dosage of medications he supposes take daily. Agree with lab work for VPA and [place] level for 02/10/25. Nursing contacted during period of this note is written as patient reports Left side chest pain 10/10. Vs stable with slight elevated BP (153/76). Patient self reports vomited twice with blood -unwitnessed per nursing report. Will order Stat EKG. Order Stat EKG: NRS, Normal EKG for report severe left chest pain 10/10 which is similar to the pain he came in to ED for. Will continue to monitor and provide emotional support as needed. Plan Patient on 15 minute checks for safety. Admitted to M3. CV. Work with treatment team to do collateral. Contact the hospitalist regarding hospitalist consultation on admission: pending Physical Assessment H&P Per [facility] ED record: EKGs: a couple were done, Unremarkable. Request pain medication multiple times. Creatinine 0.60. Mag 1.7. BAL negative. +Opiate. Chest xray 2 view: unremarkable. 02/10: Active on unit. Patient reports feeling depressed ; pt stated, this time of year makes me suicidal because my mom was a holiday person and shes not with us. I usually feel good after being inpatient . Patient reports he is also looking for housing; pt educated that the social workers do not help with housing. Patient denies SI/HI/VH. He reports auditory hallucinations telling him to harm himself; pt stated, I would never act on it because I think of my daughter . [place] level 0.31 and Valproic acid level 23.5 on 02/10/25. Continue tx plan. 02/11: Active on unit. attending groups. Patient continues to report feeling depressed ; pt stated, I miss my mom and whole family . He reports suicidal ideation with plan to jump off a bridge ; +AH of feather voice telling me to harm myself . denies HI/VH. He reports hx of Seroquel PRN helping him in the past and requesting to be prescribed this. Added: Seroquel 25mg PO BID PRN. Will redraw Valproic acid level Sunday and [place] level over the weekend. 02/12:Patient continues to report feeling depressed ; pt stated, I feel like my depression is getting worse. I can't explain it . He continues to reports suicidal ideation; +AH of father voice telling me to harm myself . denies HI/VH. Valproic acid level ordered; awaiting results. Patient worried about where I'm going to go after here . Continue tx plan. 02/13: Patient continues to report feeling depressed ; pt reports chronic auditory hallucinations. He reports Seroquel PRN has been helpful in the past; encouraged to utilize his PRN Seroquel. He continues to reports suicidal ideation; no plan. denies HI/VH. Valproic acid level 31.4. [place] level ordered to be drawn on 02/15/25; pt aware. Patient educated on: diagnosis and medication risk/benefits Reason for continued inpatient stay Substantial Risk for: harm to self and med/psych decompensation Time Spent With Patient Time: Total time managing care of this patient today _20___ minutes.
[2025-02-13 11:58] LABS: Glucose, Whole Blood 70 mg/dL (60-115)
[2025-02-13 16:27] LABS: Glucose, Whole Blood 130 mg/dL (60-115)
[2025-02-13 18:00] VITALS: BP 138/70; PULSE 96; RESP 17; O2SAT 96
--- NOTE | 2025-02-13 18:10 | PC.NURSE ---
Addendum entered by Sandra Lind RN 02/13/25 18:14: Will continue to monitor Original Note: Patient c/o chest pain radiating down his left arm this evening. Vitals were obtained and WNL (138/70, 96HR, 96%, R17). Pt does not appear to be in any distress and is currently watching tv in the side room. Given a cool wash cloth for his head, per pt request. Provider Carlee Paul notified via tiger text
[2025-02-13 20:00] VITALS: BP 131/64; PULSE 95; RESP 18; TEMP 37; O2SAT 96
[2025-02-13 21:28] VITALS: BP 131/64; PULSE 95
[2025-02-13 21:34] LABS: Glucose, Whole Blood 242 mg/dL (60-115)
[2025-02-14 08:00] VITALS: BP 108/53; PULSE 81; RESP 16; TEMP 36.9; O2SAT 96
[2025-02-14 08:12] LABS: Glucose, Whole Blood 114 mg/dL (60-115)
[2025-02-14] MEDS: Ferrous Sulfate 324 MG TABLET.DR PO (08:53)
[2025-02-14] MEDS: guaiFENesin LA 600 MG TAB.ER.12H PO (11:01)
[2025-02-14 11:50] LABS: Glucose, Whole Blood 93 mg/dL (60-115)
[2025-02-14 16:57] LABS: Glucose, Whole Blood 98 mg/dL (60-115)
[2025-02-14 20:00] VITALS: BP 144/68; PULSE 83; RESP 20; TEMP 36.3; O2SAT 97
[2025-02-14 20:25] LABS: Glucose, Whole Blood 143 mg/dL (60-115)
[2025-02-14 21:12] VITALS: BP 144/68
--- NOTE | 2025-02-14 23:21 | P.PNPSI_ITS ---
Subjective Subjective Date of Service: 02/14/25 Reason For Visit: F43.10 PTSD F80 Intellecturl d/o Subjective Notes: Conditional Voluntary Healthcare Proxy: No Guardianship: No Medical Problems Affecting Mental Status: No Interim History: Medical record and nursing notes reviewed; case discussed during rounds with team/nursing staff, and met with patient for supportive therapy/psychoeducation, as well as medication management. Patient slept for 8 hours, denies any issue with appetite. Denies pain or chest pain. Observed visible most of the day in common area, social, playing game with peers. Denies SI/SIB/HI/AVH. Compliant with medication, denies side effects. He is aware that he will have lithium level tomorrow morning. Medication Compliance: Yes Side effects from medications: No Attending Groups: Yes Review of Systems Acute medical concerns: No Medical Review of Systems: unchanged Review of Systems Review of Systems Constitutional: Denies fatigue and Denies fever(s) Cardiovascular: Denies chest pain and Denies dyspnea Respiratory: Denies dyspnea Gastrointestinal: Denies abdominal pain Psychiatric: denies suicidal ideation Endocrine: Denies fatigue Yes all other systems are reviewed and are negative Mental Status Exam Mental Status Exam Narrative: Pt is alert and oriented; behavior is cooperative and calm; dressed in casual attire; mood is described as good; eye contact appropriate; Speech is normal rate, volume and not pressured; thought process is organized; Thought content is on tx; denies SI/SIB/HI/AVH. Diagnostics Vital Signs (24Hr): Vital Signs - 24 hr 02/14/25 08:00 02/14/25 20:00 02/14/25 21:12 Temperature 98.4 F 97.3 F Pulse Rate 81 83 Respiratory Rate 16 20 Blood Pressure 108/53 L 144/68 H 144/68 H Pulse Oximetry 96 97 Oxygen Delivery Method Room Air Room Air BMI result Body Mass Index 38.8 Labs 02/10/25 07:41 Labs: Laboratory Results - last 48 hr 02/13/25 02/13/25 02/13/25 07:40 11:54 16:24 POC Glucose 113 70 130 H 02/13/25 02/14/25 02/14/25 21:25 07:57 11:46 POC Glucose 242 H 114 93 02/14/25 02/14/25 16:52 20:20 POC Glucose 98 143 H Medications Medications Current Medications Al Hydroxide/Mg Hydroxide (Magnesium Hydrox/Alum Hydrox 30 Ml Oral.Susp) 30 ml PO Q6H PRN PRN Reason: Heartburn/Nausea Albuterol Sulfate (Albuterol Sulfate 90 Mcg 8 Gm Inhaler) 2 puff INHALE Q6H PRN PRN Reason: Shortness of Breath Last Admin: 02/11/25 18:31 Dose: 2 puff Atorvastatin Calcium (Atorvastatin Calcium 40 Mg Tablet) 40 mg PO BEDTIME [facility] Last Admin: 02/14/25 21:13 Dose: 40 mg Clopidogrel Bisulfate (Clopidogrel Bisulfate 75 Mg Tablet) 75 mg PO DAILY [facility] Last Admin: 02/14/25 08:52 Dose: 75 mg Dextrose (Dextrose 50 % 25 Gm/50 Ml Syringe) 25 gm IVPUSH Q15M PRN; Protocol PRN Reason: per Hypoglycemia Standing Ord. Divalproex Sodium (Divalproex Sodium 250 Mg Tablet.) 250 mg PO BEDTIME [facility] Last Admin: 02/14/25 21:12 Dose: 250 mg Divalproex Sodium (Divalproex Sodium 500 Mg Tablet.) 1,000 mg PO DAILY [facility] Last Admin: 02/14/25 08:52 Dose: 1,000 mg Escitalopram Oxalate (Escitalopram Oxalate 10 Mg Tablet) 10 mg PO DAILY [facility] Last Admin: 02/14/25 08:54 Dose: 10 mg Ferrous Sulfate (Ferrous Sulfate 324 Mg Tablet.) 324 mg PO DAILY [facility] Last Admin: 02/14/25 08:53 Dose: 324 mg Fluticasone Propionate (Fluticasone Propionate Nasal 16 Gm [place]) 1 spray NOSTRIL-B BID [facility] Last Admin: 02/14/25 21:15 Dose: 1 spray Glucose (Glucose Gel 15 Gm Gel..Gram.) 15 gm PO Q15M PRN; Protocol PRN Reason: per Hypoglycemia Standing Ord. Guaifenesin (Guaifenesin [place] 600 Mg Tab.Er.12h) 600 mg PO BID PRN PRN Reason: congestion Last Admin: 02/14/25 11:01 Dose: 600 mg Hydroxyzine HCl (Hydroxyzine Hcl 25 Mg Tablet) 25 mg PO Q6H PRN PRN Reason: mild anxiety Insulin Human Lispro (Insulin Lispro 100 Unit/Ml 3 Ml Vial) 0 unit SUBCUT QIDACHS [facility]; Protocol Last Admin: 02/14/25 21:17 Dose: Not Given Levothyroxine Sodium (Levothyroxine Sodium 25 Mcg Tablet) 25 mcg PO DAILY@0630 [facility] Last Admin: 02/14/25 06:35 Dose: 25 mcg Lisinopril (Lisinopril 20 Mg Tablet) 20 mg PO DAILY [facility]; Protocol Last Admin: 02/14/25 08:52 Dose: 20 mg [place] Carbonate ([place] Carbonate 300 Mg Capsule) 600 mg PO BID [facility] Last Admin: 02/14/25 21:12 Dose: 600 mg Magnesium Hydroxide (Milk Of Magnesia 30 Ml Oral.Susp) 30 ml PO DAILY PRN PRN Reason: Constipation Metformin HCl (Metformin Hcl 500 Mg Tablet) 500 mg PO DAILY [facility] Last Admin: 02/14/25 08:52 Dose: 500 mg Omeprazole (Omeprazole 20 Mg Capsule.Dr) 20 mg PO DAILY@0630 [facility] Last Admin: 02/14/25 06:35 Dose: 20 mg Propranolol HCl (Propranolol Hcl 20 Mg Tablet) 20 mg PO BID [facility]; Protocol Last Admin: 02/14/25 21:12 Dose: 20 mg Quetiapine Fumarate (Quetiapine Fumarate 400 Mg Tablet) 400 mg PO BEDTIME [facility] Last Admin: 02/14/25 21:12 Dose: 400 mg Quetiapine Fumarate (Quetiapine Fumarate 25 Mg Tablet) 25 mg PO BID PRN PRN Reason: Anxiety, mild Last Admin: 02/13/25 10:12 Dose: 25 mg Rivaroxaban (Rivaroxaban 20 Mg Tablet) 20 mg PO DAILY@1700 [facility] Last Admin: 02/14/25 17:08 Dose: 20 mg Trazodone HCl (Trazodone Hcl 50 Mg Tablet) 50 mg PO BEDTIME MRX1 PRN PRN Reason: Insomnia Vitamin D (Cholecalciferol (Vitamin D3) 25 Mcg Tablet) 25 mcg PO DAILY [facility] Last Admin: 02/14/25 08:53 Dose: 25 mcg Allergies Allergies Allergy/AdvReac Type Severity Reaction Status Date / Time acetaminophen (From TYLENOL) Allergy Severe ANAPHYLAXIS Verified 02/10/25 07:50 aspirin (ASA) Allergy Severe ANAPHYLAXIS Verified 02/10/25 07:50 nitroglycerin (NITROGLYCERIN) Allergy Severe ANAPHYLAXIS Verified 02/10/25 07:50 amoxicillin (AMOXICILLIN) Allergy Mild RASH Verified 02/10/25 07:50 fish derived (fish) Allergy Anaphylaxis Verified 02/10/25 07:50 ibuprofen Allergy Anaphylaxis Verified 02/10/25 07:50 Poultry Allergy Anaphylaxis Verified 02/10/25 07:50 Assessment & Plan Assessment & Plan (1) Bipolar II disorder: Status: Acute Code(s): F31.81 - Bipolar II disorder (2) PTSD (post-traumatic stress disorder): Status: Acute Code(s): F43.10 - Post-traumatic stress disorder, unspecified Plan Patient is a 51y.o male with hx of of CAD C/b [place] x6, stent x2, CHF, HTN, HLD, DM II, A Fib, COPD, Bipolar II, schizophrenic, PTSD who presenting to [facility] ED with chest pain. Symptoms started 3 days ago, were intermittent at first but has come constant. Upon finishing up with his support for chest pain, patient reports to the nurse that he is having SI with plan to jump off a bridge or building. Report that Feb/Mar is difficult for him as his mother has and the holidays are difficult d/t this. Report medications may not be working anymore. Also report that most suicide attempt was in September of this year by jumping in front of a truck. Report VH of his father coming after him with a gun. Formulation/clinical reasoning: Being homeless, Nov/Dec, holidays this time of the year is difficult as mom around this time. Increasing in depression and anxiety, Increasing in AVH. Given hx of PTSD, Bipolar II, SI with plan, patient would benefit in restrictive environment for own safety, medication adjustment and refer patient back to OP psychiatric services for aftercare plan. 02/09:Continue with home meds. patient has good knowledge and dosage of medications he supposes take daily. Agree with lab work for VPA and [place] level for 02/10/25. Nursing contacted during period of this note is written as patient reports Left side chest pain 10/10. Vs stable with slight elevated BP (153/76). Patient self reports vomited twice with blood -unwitnessed per nursing report. Will order Stat EKG. Order Stat EKG: NRS, Normal EKG for report severe left chest pain 10/10 which is similar to the pain he came in to ED for. Will continue to monitor and provide emotional support as needed. Plan Patient on 15 minute checks for safety. Admitted to M3. CV. Work with treatment team to do collateral. Contact the hospitalist regarding hospitalist consultation on admission: pending Physical Assessment H&P Per [facility] ED record: EKGs: a couple were done, Unremarkable. Request pain medication multiple times. Creatinine 0.60. Mag 1.7. BAL negative. +Opiate. Chest xray 2 view: unremarkable. 02/10: Active on unit. Patient reports feeling depressed ; pt stated, this time of year makes me suicidal because my mom was a holiday person and shes not with us. I usually feel good after being inpatient . Patient reports he is also looking for housing; pt educated that the social workers do not help with housing. Patient denies SI/HI/VH. He reports auditory hallucinations telling him to harm himself; pt stated, I would never act on it because I think of my daughter . [place] level 0.31 and Valproic acid level 23.5 on 02/10/25. Continue tx plan. 02/11: Active on unit. attending groups. Patient continues to report feeling depressed ; pt stated, I miss my mom and whole family . He reports suicidal ideation with plan to jump off a bridge ; +AH of feather voice telling me to harm myself . denies HI/VH. He reports hx of Seroquel PRN helping him in the past and requesting to be prescribed this. Added: Seroquel 25mg PO BID PRN. Will redraw Valproic acid level Sunday and [place] level over the weekend. 02/12:Patient continues to report feeling depressed ; pt stated, I feel like my depression is getting worse. I can't explain it . He continues to reports suicidal ideation; +AH of father voice telling me to harm myself . denies HI/VH. Valproic acid level ordered; awaiting results. Patient worried about where I'm going to go after here . Continue tx plan. 02/13: Patient continues to report feeling depressed ; pt reports chronic auditory hallucinations. He reports Seroquel PRN has been helpful in the past; encouraged to utilize his PRN Seroquel. He continues to reports suicidal ideation; no plan. denies HI/VH. Valproic acid level 31.4. [place] level ordered to be drawn on 02/15/25; pt aware. 02/14/25: Patient slept for 8 hours, denies any issue with appetite. Denies pain or chest pain. Observed visible most of the day in common area, social, playing game with peers. Denies SI/SIB/HI/AVH. Compliant with medication, denies side effects. He is aware that he will have lithium level tomorrow morning. Patient educated on: diagnosis, medication risk/benefits and therapeutic strategies Informed Consent: understands Reason for continued inpatient stay Substantial Risk for: med/psych decompensation Time Spent With Patient Time: Total time managing care of this patient today ____ minutes.
[2025-02-15 08:00] VITALS: BP 120/65; PULSE 76; RESP 14; TEMP 36.4; O2SAT 96
[2025-02-15 08:02] LABS: Glucose, Whole Blood 155 mg/dL (60-115)
[2025-02-15 08:25] LABS: Lithium 0.43 mmol/L (0.60-1.20)
[2025-02-15 08:28] VITALS: BP 120/65; PULSE 78
[2025-02-15] MEDS: Ferrous Sulfate 324 MG TABLET.DR PO (08:28)
[2025-02-15 08:29] LABS: Anion Gap 13 (12-20); Blood Urea Nitrogen 17 mg/dL (9-16); Carbon Dioxide 20 mmol/L (22-29); Chloride 109 mmol/L (96-108); Creatinine Clr Calc Pharmacy 185.4; Estimated Glomerular Filt Rate > 60; Potassium 4.0 mmol/L (3.3-5.1); Sodium 138 mmol/L (135-145)
[2025-02-15] MEDS: guaiFENesin LA 600 MG TAB.ER.12H PO ×2 (08:33→20:00)
[2025-02-15 12:03] LABS: Glucose, Whole Blood 82 mg/dL (60-115)
[2025-02-15] MEDS: Throat Lozenge, Medicated LOZENGE 1 LOZENGE MUCOUS MEM ×2 (14:12→19:59)
--- NOTE | 2025-02-15 14:30 | PC.NURSE ---
Patient c/o chest pain this afternoon. Vitals stable (131/72, 95P, 97% 16R), denies any other complaints at this time. Pt does not appear to be in any distress (pt watching tv and socializing with peers). Provider Carlee Paul notified via tiger text, will continue to monitor.
[2025-02-15 16:33] LABS: Glucose, Whole Blood 151 mg/dL (60-115)
[2025-02-15 20:00] VITALS: BP 112/62; PULSE 75; RESP 16; TEMP 36.2; O2SAT 95
[2025-02-15 21:00] VITALS: BP 112/62; PULSE 75
--- NOTE | 2025-02-15 21:39 | HO.PSYCHPN ---
Subjective Subjective Date of Service: 02/15/25 Reason For Visit: F43.10 PTSD F79 Intellecturl d/o Subjective Notes: Conditional Voluntary Healthcare Proxy: No Guardianship: No Medical Problems Affecting Mental Status: No Interim History: Medical record and nursing notes reviewed; case discussed during rounds with team/nursing staff, and met with patient for supportive therapy/psychoeducation, as well as medication management. Patient continues to improve. Denies anxiety or depression. Denies safety concerns. Visible in common area. Reviewed [place] level with patient and medication changes. Also informed that POC will be down to BID instead of QID as his BS is mostly under control. Educate on health food and drink choices regarding diabetes. Patient also asks for Lozenge for sore throat. Occasionally he will reports severe chest pain which has no clinical indicated. He would hope being discharged in the future to a program and report that SW is working on it. Medication Compliance: Yes Side effects from medications: No Attending Groups: Intermittent Review of Systems Acute medical concerns: No Medical Review of Systems: unchanged Review of Systems Review of Systems Constitutional: Denies fatigue and Denies fever(s) Cardiovascular: Denies chest pain and Denies dyspnea Respiratory: Denies dyspnea Gastrointestinal: Denies abdominal pain Psychiatric: denies suicidal ideation Endocrine: Denies fatigue Yes all other systems are reviewed and are negative Mental Status Exam Mental Status Exam Narrative: Pt is alert and oriented; behavior is cooperative and calm; dressed in casual attire; mood is described as good; eye contact appropriate; Speech is normal rate, volume and not pressured; thought process is organized; Thought content is on tx; denies SI/SIB/HI/AVH. Diagnostics Vital Signs (24Hr): Vital Signs - 24 hr 02/15/25 08:00 02/15/25 08:28 02/15/25 08:28 Temperature 97.5 F Pulse Rate 76 78 Respiratory Rate 14 Blood Pressure 120/65 120/65 120/65 Pulse Oximetry 96 Oxygen Delivery Method Room Air 02/15/25 21:00 Temperature Pulse Rate 75 Respiratory Rate Blood Pressure 112/62 Pulse Oximetry Oxygen Delivery Method BMI result Body Mass Index 38.8 Labs 02/15/25 07:57 Labs: Laboratory Results - last 48 hr 02/14/25 02/14/25 02/14/25 07:57 11:46 16:52 Sodium Potassium Chloride Carbon Dioxide Anion Gap BUN Creatinine Estim Creat Clear Calc Estimated GFR POC Glucose 114 93 98 [place] 02/14/25 02/15/25 02/15/25 20:20 07:48 07:57 Sodium 138 Potassium 4.0 Chloride 109 H Carbon Dioxide 20 L Anion Gap 13 BUN 17 H Creatinine 0.64 Estim Creat Clear Calc 185.4 Estimated GFR > 60 POC Glucose 143 H 155 H [place] 0.43 L 02/15/25 02/15/25 11:55 16:29 Sodium Potassium Chloride Carbon Dioxide Anion Gap BUN Creatinine Estim Creat Clear Calc Estimated GFR POC Glucose 82 151 H [place] Medications Medications Current Medications Al Hydroxide/Mg Hydroxide (Magnesium Hydrox/Alum Hydrox 30 Ml Oral.Susp) 30 ml PO Q6H PRN PRN Reason: Heartburn/Nausea Albuterol Sulfate (Albuterol Sulfate 90 Mcg 8 Gm Inhaler) 2 puff INHALE Q6H PRN PRN Reason: Shortness of Breath Last Admin: 02/11/25 18:31 Dose: 2 puff Atorvastatin Calcium (Atorvastatin Calcium 40 Mg Tablet) 40 mg PO BEDTIME [facility] [place] Last Admin: 02/15/25 21:01 Dose: 40 mg Benzocaine (Throat Lozenge, Medicated Lozenge) 1 lozenge MUCOUS MEM Q2H PRN PRN Reason: Sore Throat Last Admin: 02/15/25 19:59 Dose: 1 lozenge Clopidogrel Bisulfate (Clopidogrel Bisulfate 75 Mg Tablet) 75 mg PO DAILY [facility] Last Admin: 02/15/25 08:33 Dose: 75 mg Dextrose (Dextrose 50 % 25 Gm/50 Ml Syringe) 25 gm IVPUSH Q15M PRN; Protocol PRN Reason: per Hypoglycemia Standing Ord. Divalproex Sodium (Divalproex Sodium 250 Mg Tablet.) 250 mg PO BEDTIME [facility] [place] Last Admin: 02/15/25 21:01 Dose: 250 mg Divalproex Sodium (Divalproex Sodium 500 Mg Tablet.) 1,000 mg PO DAILY [facility] [place] Last Admin: 02/15/25 08:28 Dose: 1,000 mg Escitalopram Oxalate (Escitalopram Oxalate 10 Mg Tablet) 10 mg PO DAILY [facility] [place] Last Admin: 02/15/25 08:28 Dose: 10 mg Ferrous Sulfate (Ferrous Sulfate 324 Mg Tablet.) 324 mg PO DAILY [facility] [place] Last Admin: 02/15/25 08:28 Dose: 324 mg Fluticasone Propionate (Fluticasone Propionate Nasal 16 Gm Terrell) 1 spray NOSTRIL-B BID [facility] [place] Last Admin: 02/15/25 20:59 Dose: 1 spray Glucose (Glucose Gel 15 Gm Gel..Gram.) 15 gm PO Q15M PRN; Protocol PRN Reason: per Hypoglycemia Standing Ord. Guaifenesin (Guaifenesin La 600 Mg Tab.Er.12h) 600 mg PO BID PRN PRN Reason: congestion Last Admin: 02/15/25 20:00 Dose: 600 mg Hydroxyzine HCl (Hydroxyzine Hcl 25 Mg Tablet) 25 mg PO Q6H PRN PRN Reason: mild anxiety Insulin Human Lispro (Insulin Lispro 100 Unit/Ml 3 Ml Vial) 0 unit SUBCUT BID@0800,1600 [facility] [place]; Protocol Last Admin: 02/15/25 16:51 Dose: 2 unit Levothyroxine Sodium (Levothyroxine Sodium 25 Mcg Tablet) 25 mcg PO DAILY@0630 [facility] [place] Last Admin: 02/15/25 06:25 Dose: 25 mcg Lisinopril (Lisinopril 20 Mg Tablet) 20 mg PO DAILY [facility] [place]; Protocol Last Admin: 02/15/25 08:28 Dose: 20 mg [place] Carbonate ([place] Carbonate 300 Mg Capsule) 600 mg PO BID [facility] [place] Last Admin: 02/15/25 21:01 Dose: 600 mg [place] Carbonate ([place] Carbonate 300 Mg Tablet) 300 mg PO BEDTIME [facility] [place] Last Admin: 02/15/25 21:01 Dose: 300 mg Magnesium Hydroxide (Milk Of Magnesia 30 Ml Oral.Susp) 30 ml PO DAILY PRN PRN Reason: Constipation Metformin HCl (Metformin Hcl 500 Mg Tablet) 500 mg PO DAILY [facility] [place] Last Admin: 02/15/25 08:28 Dose: 500 mg Omeprazole (Omeprazole 20 Mg Capsule.Dr) 20 mg PO DAILY@0630 [facility] [place] Last Admin: 02/15/25 06:25 Dose: 20 mg Propranolol HCl (Propranolol Hcl 20 Mg Tablet) 20 mg PO BID [facility] [place]; Protocol Last Admin: 02/15/25 21:00 Dose: 20 mg Quetiapine Fumarate (Quetiapine Fumarate 400 Mg Tablet) 400 mg PO BEDTIME [facility] [place] Last Admin: 02/15/25 21:00 Dose: 400 mg Quetiapine Fumarate (Quetiapine Fumarate 25 Mg Tablet) 25 mg PO BID PRN PRN Reason: Anxiety, mild Last Admin: 02/13/25 10:12 Dose: 25 mg Rivaroxaban (Rivaroxaban 20 Mg Tablet) 20 mg PO DAILY@1700 [facility] [place] Last Admin: 02/15/25 17:09 Dose: 20 mg Trazodone HCl (Trazodone Hcl 50 Mg Tablet) 50 mg PO BEDTIME [facility]X1 PRN PRN Reason: Insomnia Vitamin D (Cholecalciferol (Vitamin D3) 25 Mcg Tablet) 25 mcg PO DAILY [facility] [place] Last Admin: 02/15/25 08:28 Dose: 25 mcg Allergies Allergies Allergy/AdvReac Type Severity Reaction Status Date / Time acetaminophen (From TYLENOL) Allergy Severe ANAPHYLAXIS Verified 02/10/25 07:50 aspirin (ASA) Allergy Severe ANAPHYLAXIS Verified 02/10/25 07:50 nitroglycerin (NITROGLYCERIN) Allergy Severe ANAPHYLAXIS Verified 02/10/25 07:50 amoxicillin (AMOXICILLIN) Allergy Mild RASH Verified 02/10/25 07:50 fish derived (fish) Allergy Anaphylaxis Verified 02/10/25 07:50 ibuprofen Allergy Anaphylaxis Verified 02/10/25 07:50 Poultry Allergy Anaphylaxis Verified 02/10/25 07:50 Assessment & Plan Assessment & Plan (1) Bipolar II disorder: Status: Acute Code(s): F31.81 - Bipolar II disorder (2) PTSD (post-traumatic stress disorder): Status: Acute Code(s): F43.10 - Post-traumatic stress disorder, unspecified Plan Patient is a 51y.o male with hx of of CAD C/b IN x6, stent x2, CHF, HTN, HLD, DM II, A Fib, COPD, Bipolar II, schizophrenic, PTSD who presenting to [facility] ED with chest pain. Symptoms started 3 days ago, were intermittent at first but has come constant. Upon finishing up with his support for chest pain, patient reports to the nurse that he is having SI with plan to jump off a bridge or building. Report that Feb/Mar is difficult for him as his mother has and the holidays are difficult d/t this. Report medications may not be working anymore. Also report that most suicide attempt was in September of this year by jumping in front of a truck. Report VH of his father coming after him with a gun. Formulation/clinical reasoning: Being homeless, Nov/Dec, holidays this time of the year is difficult as mom around this time. Increasing in depression and anxiety, Increasing in AVH. Given hx of PTSD, Bipolar II, SI with plan, patient would benefit in restrictive environment for own safety, medication adjustment and refer patient back to OP psychiatric services for aftercare plan. 02/09:Continue with home meds. patient has good knowledge and dosage of medications he supposes take daily. Agree with lab work for VPA and [place] level for 02/10/25. Nursing contacted during period of this note is written as patient reports Left side chest pain 01/16. Vs stable with slight elevated BP (153/76). Patient self reports vomited twice with blood -unwitnessed per nursing report. Will order Stat EKG. Order Stat EKG: NRS, Normal EKG for report severe left chest pain 01/16 which is similar to the pain he came in to ED for. Will continue to monitor and provide emotional support as needed. Plan Patient on 15 minute checks for safety. Admitted to [facility]. CV. Work with treatment team to do collateral. Contact the hospitalist regarding hospitalist consultation on admission: pending Physical Assessment H&P Per [facility] ED record: EKGs: a couple were done, Unremarkable. Request pain medication multiple times. Creatinine 0.60. Mag 1.7. BAL negative. +Opiate. Chest xray 2 view: unremarkable. 02/10: Active on unit. Patient reports feeling depressed ; pt stated, this time of year makes me suicidal because my mom was a holiday person and shes not with us. I usually feel good after being inpatient . Patient reports he is also looking for housing; pt educated that the social workers do not help with housing. Patient denies SI/HI/VH. He reports auditory hallucinations telling him to harm himself; pt stated, I would never act on it because I think of my daughter . [place] level 0.31 and Valproic acid level 23.5 on 02/10/25. Continue tx plan. 02/11: Active on unit. attending groups. Patient continues to report feeling depressed ; pt stated, I miss my mom and whole family . He reports suicidal ideation with plan to jump off a bridge ; +AH of feather voice telling me to harm myself . denies HI/VH. He reports hx of Seroquel PRN helping him in the past and requesting to be prescribed this. Added: Seroquel 25mg PO BID PRN. Will redraw Valproic acid level Sunday and [place] level over the weekend. 02/12:Patient continues to report feeling depressed ; pt stated, I feel like my depression is getting worse. I can't explain it . He continues to reports suicidal ideation; +AH of father voice telling me to harm myself . denies HI/VH. Valproic acid level ordered; awaiting results. Patient worried about where I'm going to go after here . Continue tx plan. 02/13: Patient continues to report feeling depressed ; pt reports chronic auditory hallucinations. He reports Seroquel PRN has been helpful in the past; encouraged to utilize his PRN Seroquel. He continues to reports suicidal ideation; no plan. denies HI/VH. Valproic acid level 31.4. [place] level ordered to be drawn on 02/15/25; pt aware. 02/14/25: Patient slept for 8 hours, denies any issue with appetite. Denies pain or chest pain. Observed visible most of the day in common area, social, playing game with peers. Denies SI/SIB/HI/AVH. Compliant with medication, denies side effects. He is aware that he will have lithium level tomorrow morning. 02/15/25: Patient continues to improve. Denies anxiety or depression. Denies safety concerns. Visible in common area. Reviewed [place] level with patient and medication changes. Also informed that POC will be down to BID instead of QID as his BS is mostly under control. Educate on health food and drink choices regarding diabetes. Patient also asks for Lozenge for sore throat. Occasionally he will reports severe chest pain which has no clinical indicated. He would hope being discharged in the future to a program and report that [facility] is working on it. Increase [place] up to 900mg at HS and continue with 600mg daily. Recheck level in 5 days. [place] level 0.43 on 02/15/25. Patient educated on: diagnosis, medication risk/benefits and therapeutic strategies Informed Consent: understands and further education needed Reason for continued inpatient stay Substantial Risk for: med/psych decompensation Time Spent With Patient Time: Total time managing care of this patient today ____ minutes.
[2025-02-16 07:37] VITALS: BP 136/67; PULSE 81; RESP 20; TEMP 36.1; O2SAT 98
[2025-02-16 07:54] LABS: Glucose, Whole Blood 111 mg/dL (60-115)
[2025-02-16 08:44] VITALS: BP 123/55
[2025-02-16 08:45] VITALS: BP 123/55; PULSE 85
[2025-02-16] MEDS: Ferrous Sulfate 324 MG TABLET.DR PO (08:45)
[2025-02-16] MEDS: Albuterol Sulfate 90 MCG 8 GM INHALER 2 PUFF INHALE (08:53)
[2025-02-16] MEDS: Throat Lozenge, Medicated LOZENGE 1 LOZENGE MUCOUS MEM ×2 (08:55→20:12)
[2025-02-16] MEDS: guaiFENesin LA 600 MG TAB.ER.12H PO (08:55)
--- NOTE | 2025-02-16 12:48 | HO.PSYCHPN ---
Subjective Subjective Date of Service: 02/16/25 Reason For Visit: F43.10 PTSD F79 Intellecturl d/o Subjective Notes: Conditional Voluntary Interim History: Active on unit. social with peers. attending groups. Patient reports he still feels depressed but getting a little better . He denies SI/HI/VH. Patient reports auditory hallucinations but states they have become less. Per nursing, slept 8 hours. Plan for discharge this week if continues to improve; pt aware. Medication Compliance: Yes Side effects from medications: No Attending Groups: Yes Mental Status Exam Mental Status Exam Narrative: Pt is alert and oriented; behavior is cooperative and calm; dressed in casual attire; mood is described as getting better ; eye contact appropriate; Speech is normal rate, volume and not pressured; thought process is organized; Thought content is on tx; denies SI/HI/VH. +AH that are decreasing. Diagnostics Vital Signs (24Hr): Vital Signs - 24 hr 02/15/25 20:00 02/15/25 21:00 02/16/25 07:37 Temperature 97.2 F 97 F Pulse Rate 75 75 81 Respiratory Rate 16 20 Blood Pressure 112/62 112/62 136/67 Pulse Oximetry 95 98 Oxygen Delivery Method Room Air Room Air 02/16/25 08:44 02/16/25 08:45 Temperature Pulse Rate 85 Respiratory Rate Blood Pressure 123/55 L 123/55 L Pulse Oximetry Oxygen Delivery Method BMI result Body Mass Index 38.8 Labs 02/15/25 07:57 Labs: Laboratory Results - last 48 hr 02/14/25 02/14/25 02/15/25 16:52 20:20 07:48 Sodium Potassium Chloride Carbon Dioxide Anion Gap BUN Creatinine Estim Creat Clear Calc Estimated GFR POC Glucose 98 143 H 155 H Kennedy 02/15/25 02/15/25 02/15/25 07:57 11:55 16:29 Sodium 138 Potassium 4.0 Chloride 109 H Carbon Dioxide 20 L Anion Gap 13 BUN 17 H Creatinine 0.64 Estim Creat Clear Calc 185.4 Estimated GFR > 60 POC Glucose 82 151 H Kennedy 0.43 L 02/16/25 07:50 Sodium Potassium Chloride Carbon Dioxide Anion Gap BUN Creatinine Estim Creat Clear Calc Estimated GFR POC Glucose 111 Kennedy Medications Medications Current Medications Al Hydroxide/Mg Hydroxide (Magnesium Hydrox/Alum Hydrox 30 Ml Oral.Susp) 30 ml PO Q6H PRN PRN Reason: Heartburn/Nausea Albuterol Sulfate (Albuterol Sulfate 90 Mcg 8 Gm Inhaler) 2 puff INHALE Q6H PRN PRN Reason: Shortness of Breath Last Admin: 02/16/25 08:53 Dose: 2 puff Atorvastatin Calcium (Atorvastatin Calcium 40 Mg Tablet) 40 mg PO BEDTIME [facility] Last Admin: 02/15/25 21:01 Dose: 40 mg Benzocaine (Throat Lozenge, Medicated Lozenge) 1 lozenge MUCOUS MEM Q2H PRN PRN Reason: Sore Throat Last Admin: 02/16/25 08:55 Dose: 1 lozenge Clopidogrel Bisulfate (Clopidogrel Bisulfate 75 Mg Tablet) 75 mg PO DAILY [facility] Last Admin: 02/16/25 08:44 Dose: 75 mg Dextrose (Dextrose 50 % 25 Gm/50 Ml Syringe) 25 gm IVPUSH Q15M PRN; Protocol PRN Reason: per Hypoglycemia Standing Ord. Divalproex Sodium (Divalproex Sodium 250 Mg Tablet.) 250 mg PO BEDTIME [facility] Last Admin: 02/15/25 21:01 Dose: 250 mg Divalproex Sodium (Divalproex Sodium 500 Mg Tablet.) 1,000 mg PO DAILY [facility] Last Admin: 02/16/25 08:44 Dose: 1,000 mg Escitalopram Oxalate (Escitalopram Oxalate 10 Mg Tablet) 10 mg PO DAILY [facility] Last Admin: 02/16/25 08:46 Dose: 10 mg Ferrous Sulfate (Ferrous Sulfate 324 Mg Tablet.) 324 mg PO DAILY [facility] Last Admin: 02/16/25 08:45 Dose: 324 mg Fluticasone Propionate (Fluticasone Propionate Nasal 16 Gm [place]) 1 spray NOSTRIL-B BID [facility] Last Admin: 02/16/25 08:54 Dose: 1 spray Glucose (Glucose Gel 15 Gm Gel..Gram.) 15 gm PO Q15M PRN; Protocol PRN Reason: per Hypoglycemia Standing Ord. Guaifenesin (Guaifenesin [place] 600 Mg Tab.Er.12h) 600 mg PO BID PRN PRN Reason: congestion Last Admin: 02/16/25 08:55 Dose: 600 mg Hydroxyzine HCl (Hydroxyzine Hcl 25 Mg Tablet) 25 mg PO Q6H PRN PRN Reason: mild anxiety Insulin Human Lispro (Insulin Lispro 100 Unit/Ml 3 Ml Vial) 0 unit SUBCUT BID@0800,1600 [facility]; Protocol Last Admin: 02/16/25 08:49 Dose: Not Given Levothyroxine Sodium (Levothyroxine Sodium 25 Mcg Tablet) 25 mcg PO DAILY@0630 [facility] Last Admin: 02/16/25 06:28 Dose: 25 mcg Lisinopril (Lisinopril 20 Mg Tablet) 20 mg PO DAILY [facility]; Protocol Last Admin: 02/16/25 08:44 Dose: 20 mg Kennedy Carbonate (Kennedy Carbonate 300 Mg Capsule) 600 mg PO BID [facility] Last Admin: 02/16/25 08:44 Dose: 600 mg Kennedy Carbonate (Kennedy Carbonate 300 Mg Tablet) 300 mg PO BEDTIME [facility] Last Admin: 02/15/25 21:01 Dose: 300 mg Magnesium Hydroxide (Milk Of Magnesia 30 Ml Oral.Susp) 30 ml PO DAILY PRN PRN Reason: Constipation Metformin HCl (Metformin Hcl 500 Mg Tablet) 500 mg PO DAILY [facility] Last Admin: 02/16/25 08:44 Dose: 500 mg Omeprazole (Omeprazole 20 Mg Capsule.Dr) 20 mg PO DAILY@0630 [facility] Last Admin: 02/16/25 06:28 Dose: 20 mg Propranolol HCl (Propranolol Hcl 20 Mg Tablet) 20 mg PO BID [facility]; Protocol Last Admin: 02/16/25 08:45 Dose: 20 mg Quetiapine Fumarate (Quetiapine Fumarate 400 Mg Tablet) 400 mg PO BEDTIME [facility] Last Admin: 02/15/25 21:00 Dose: 400 mg Quetiapine Fumarate (Quetiapine Fumarate 25 Mg Tablet) 25 mg PO BID PRN PRN Reason: Anxiety, mild Last Admin: 02/13/25 10:12 Dose: 25 mg Rivaroxaban (Rivaroxaban 20 Mg Tablet) 20 mg PO DAILY@1700 [facility] Last Admin: 02/15/25 17:09 Dose: 20 mg Trazodone HCl (Trazodone Hcl 50 Mg Tablet) 50 mg PO BEDTIME [facility]X1 PRN PRN Reason: Insomnia Vitamin D (Cholecalciferol (Vitamin D3) 25 Mcg Tablet) 25 mcg PO DAILY [facility] Last Admin: 02/16/25 08:46 Dose: 25 mcg Allergies Allergies Allergy/AdvReac Type Severity Reaction Status Date / Time acetaminophen (From TYLENOL) Allergy Severe ANAPHYLAXIS Verified 02/10/25 07:50 aspirin (ASA) Allergy Severe ANAPHYLAXIS Verified 02/10/25 07:50 nitroglycerin (NITROGLYCERIN) Allergy Severe ANAPHYLAXIS Verified 02/10/25 07:50 amoxicillin (AMOXICILLIN) Allergy Mild RASH Verified 02/10/25 07:50 fish derived (fish) Allergy Anaphylaxis Verified 02/10/25 07:50 ibuprofen Allergy Anaphylaxis Verified 02/10/25 07:50 Poultry Allergy Anaphylaxis Verified 02/10/25 07:50 Assessment & Plan Assessment & Plan (1) Bipolar II disorder: Status: Acute Code(s): F31.81 - Bipolar II disorder (2) PTSD (post-traumatic stress disorder): Status: Acute Code(s): F43.10 - Post-traumatic stress disorder, unspecified Plan Patient is a 51y.o male with hx of of CAD C/b SC x6, stent x2, CHF, HTN, HLD, DM II, A Fib, COPD, Bipolar II, schizophrenic, PTSD who presenting to [facility] ED with chest pain. Symptoms started 3 days ago, were intermittent at first but has come constant. Upon finishing up with his support for chest pain, patient reports to the nurse that he is having SI with plan to jump off a bridge or building. Report that Feb/Mar is difficult for him as his mother has and the holidays are difficult d/t this. Report medications may not be working anymore. Also report that most suicide attempt was in September of this year by jumping in front of a truck. Report VH of his father coming after him with a gun. Formulation/clinical reasoning: Being homeless, Nov/Dec, holidays this time of the year is difficult as mom around this time. Increasing in depression and anxiety, Increasing in AVH. Given hx of PTSD, Bipolar II, SI with plan, patient would benefit in restrictive environment for own safety, medication adjustment and refer patient back to OP psychiatric services for aftercare plan. 02/09:Continue with home meds. patient has good knowledge and dosage of medications he supposes take daily. Agree with lab work for VPA and Kennedy level for 02/10/25. Nursing contacted during period of this note is written as patient reports Left side chest pain 01/16. Vs stable with slight elevated BP (153/76). Patient self reports vomited twice with blood -unwitnessed per nursing report. Will order Stat EKG. Order Stat EKG: NRS, Normal EKG for report severe left chest pain 01/16 which is similar to the pain he came in to ED for. Will continue to monitor and provide emotional support as needed. Plan Patient on 15 minute checks for safety. Admitted to [facility]. CV. Work with treatment team to do collateral. Contact the hospitalist regarding hospitalist consultation on admission: pending Physical Assessment H&P Per [facility] ED record: EKGs: a couple were done, Unremarkable. Request pain medication multiple times. Creatinine 0.60. Mag 1.7. BAL negative. +Opiate. Chest xray 2 view: unremarkable. 02/10: Active on unit. Patient reports feeling depressed ; pt stated, this time of year makes me suicidal because my mom was a holiday person and shes not with us. I usually feel good after being inpatient . Patient reports he is also looking for housing; pt educated that the social workers do not help with housing. Patient denies SI/HI/VH. He reports auditory hallucinations telling him to harm himself; pt stated, I would never act on it because I think of my daughter . Kennedy level 0.31 and Valproic acid level 23.5 on 02/10/25. Continue tx plan. 02/11: Active on unit. attending groups. Patient continues to report feeling depressed ; pt stated, I miss my mom and whole family . He reports suicidal ideation with plan to jump off a bridge ; +AH of feather voice telling me to harm myself . denies HI/VH. He reports hx of Seroquel PRN helping him in the past and requesting to be prescribed this. Added: Seroquel 25mg PO BID PRN. Will redraw Valproic acid level Sunday and Kennedy level over the weekend. 02/12:Patient continues to report feeling depressed ; pt stated, I feel like my depression is getting worse. I can't explain it . He continues to reports suicidal ideation; +AH of father voice telling me to harm myself . denies HI/VH. Valproic acid level ordered; awaiting results. Patient worried about where I'm going to go after here . Continue tx plan. 02/13: Patient continues to report feeling depressed ; pt reports chronic auditory hallucinations. He reports Seroquel PRN has been helpful in the past; encouraged to utilize his PRN Seroquel. He continues to reports suicidal ideation; no plan. denies HI/VH. Valproic acid level 31.4. Kennedy level ordered to be drawn on 02/15/25; pt aware. 02/14/25: Patient slept for 8 hours, denies any issue with appetite. Denies pain or chest pain. Observed visible most of the day in common area, social, playing game with peers. Denies SI/SIB/HI/AVH. Compliant with medication, denies side effects. He is aware that he will have lithium level tomorrow morning. 02/15/25: Patient continues to improve. Denies anxiety or depression. Denies safety concerns. Visible in common area. Reviewed Kennedy level with patient and medication changes. Also informed that POC will be down to BID instead of QID as his BS is mostly under control. Educate on health food and drink choices regarding diabetes. Patient also asks for Lozenge for sore throat. Occasionally he will reports severe chest pain which has no clinical indicated. He would hope being discharged in the future to a program and report that is working on it. Increase Kennedy up to 900mg at HS and continue with 600mg daily. Recheck level in 5 days. Kennedy level 0.43 on 02/15/25. 02/16: Active on unit. social with peers. attending groups. Patient reports he still feels depressed but getting a little better . He denies SI/HI/VH. Patient reports auditory hallucinations but states they have become less. Per nursing, slept 8 hours. Plan for discharge this week if continues to improve; pt aware. Patient educated on: diagnosis and medication risk/benefits Reason for continued inpatient stay Substantial Risk for: med/psych decompensation Time Spent With Patient Time: Total time managing care of this patient today _20___ minutes.
[2025-02-16 17:05] LABS: Glucose, Whole Blood 156 mg/dL (60-115)
[2025-02-16 20:50] VITALS: BP 131/67; PULSE 99; RESP 22; TEMP 36.1; O2SAT 95
[2025-02-17 07:48] VITALS: BP 135/77; PULSE 79; RESP 16; TEMP 36.2; O2SAT 96
[2025-02-17 07:53] LABS: Glucose, Whole Blood 132 mg/dL (60-115)
[2025-02-17 08:32] LABS: Creatinine Clr Calc Pharmacy 191.4; Estimated Glomerular Filt Rate > 60
[2025-02-17 08:57] VITALS: BP 135/77; PULSE 79
[2025-02-17] MEDS: Ferrous Sulfate 324 MG TABLET.DR PO (08:57)
[2025-02-17] MEDS: Throat Lozenge, Medicated LOZENGE 1 LOZENGE MUCOUS MEM ×4 (08:58→20:53)
[2025-02-17] MEDS: guaiFENesin LA 600 MG TAB.ER.12H PO ×2 (08:59→21:30)
--- NOTE | 2025-02-17 10:26 | P.PNPSI_ITS ---
Subjective Subjective Date of Service: 02/17/25 Reason For Visit: F43.10 PTSD F79 Intellecturl d/o Subjective Notes: Conditional Voluntary Interim History: Active on unit. social with peers. attending groups. Patient reports feeling better today; denies SI/HI/VH/AH. He reports sleeping well last night. He reports no longer having auditory hallucinations. Patient reports some anxiety regarding where he will go after discharge. Plan to discharge on ; pt aware. Continue tx plan. Medication Compliance: Yes Side effects from medications: No Attending Groups: Yes Mental Status Exam Mental Status Exam Narrative: Pt is alert and oriented; behavior is cooperative and calm; dressed in casual attire; mood is described as better ; eye contact appropriate; Speech is normal rate, volume and not pressured; thought process is organized; Thought content is on discharge; denies SI/HI/VH/AH. Diagnostics Vital Signs (24Hr): Vital Signs - 24 hr 02/16/25 20:50 02/17/25 07:48 02/17/25 08:57 Temperature 97 F 97.2 F Pulse Rate 99 79 79 Respiratory Rate 22 H 16 Blood Pressure 131/67 135/77 135/77 Pulse Oximetry 95 96 Oxygen Delivery Method Room Air Room Air 02/17/25 08:57 Temperature Pulse Rate Respiratory Rate Blood Pressure 135/77 Pulse Oximetry Oxygen Delivery Method BMI result Body Mass Index 38.8 Labs 02/17/25 07:58 Labs: Laboratory Results - last 48 hr 02/15/25 02/15/25 02/16/25 11:55 16:29 07:50 Creatinine Estim Creat Clear Calc Estimated GFR POC Glucose 82 151 H 111 02/16/25 02/17/25 02/17/25 16:51 07:37 07:58 Creatinine 0.62 Estim Creat Clear Calc 191.4 Estimated GFR > 60 POC Glucose 156 H 132 H Medications Medications Current Medications Al Hydroxide/Mg Hydroxide (Magnesium Hydrox/Alum Hydrox 30 Ml Oral.Susp) 30 ml PO Q6H PRN PRN Reason: Heartburn/Nausea Albuterol Sulfate (Albuterol Sulfate 90 Mcg 8 Gm Inhaler) 2 puff INHALE Q6H PRN PRN Reason: Shortness of Breath Last Admin: 02/16/25 08:53 Dose: 2 puff Atorvastatin Calcium (Atorvastatin Calcium 40 Mg Tablet) 40 mg PO BEDTIME ALYCIA Last Admin: 02/16/25 21:07 Dose: 40 mg Benzocaine (Throat Lozenge, Medicated Lozenge) 1 lozenge MUCOUS MEM Q2H PRN PRN Reason: Sore Throat Last Admin: 02/17/25 08:58 Dose: 1 lozenge Clopidogrel Bisulfate (Clopidogrel Bisulfate 75 Mg Tablet) 75 mg PO DAILY [facility] Last Admin: 02/17/25 08:56 Dose: 75 mg Dextrose (Dextrose 50 % 25 Gm/50 Ml Syringe) 25 gm IVPUSH Q15M PRN; Protocol PRN Reason: per Hypoglycemia Standing Ord. Divalproex Sodium (Divalproex Sodium 250 Mg Tablet.) 250 mg PO BEDTIME [facility] Last Admin: 02/16/25 21:07 Dose: 250 mg Divalproex Sodium (Divalproex Sodium 500 Mg Tablet.) 1,000 mg PO DAILY [facility] Last Admin: 02/17/25 08:56 Dose: 1,000 mg Escitalopram Oxalate (Escitalopram Oxalate 10 Mg Tablet) 10 mg PO DAILY [facility] Last Admin: 02/17/25 08:57 Dose: 10 mg Ferrous Sulfate (Ferrous Sulfate 324 Mg Tablet.) 324 mg PO DAILY [facility] Last Admin: 02/17/25 08:57 Dose: 324 mg Fluticasone Propionate (Fluticasone Propionate Nasal 16 Gm [place]) 1 spray NOSTRIL-B BID [facility] Last Admin: 02/17/25 08:58 Dose: 1 spray Glucose (Glucose Gel 15 Gm Gel..Gram.) 15 gm PO Q15M PRN; Protocol PRN Reason: per Hypoglycemia Standing Ord. Guaifenesin (Guaifenesin La 600 Mg Tab.Er.12h) 600 mg PO BID PRN PRN Reason: congestion Last Admin: 02/17/25 08:59 Dose: 600 mg Hydroxyzine HCl (Hydroxyzine Hcl 25 Mg Tablet) 25 mg PO Q6H PRN PRN Reason: mild anxiety Insulin Human Lispro (Insulin Lispro 100 Unit/Ml 3 Ml Vial) 0 unit SUBCUT BID@0800,1600 [facility]; Protocol Last Admin: 02/17/25 09:02 Dose: Not Given Levothyroxine Sodium (Levothyroxine Sodium 25 Mcg Tablet) 25 mcg PO DAILY@0630 [facility] Last Admin: 02/17/25 06:08 Dose: 25 mcg Lisinopril (Lisinopril 20 Mg Tablet) 20 mg PO DAILY [facility]; Protocol Last Admin: 02/17/25 08:57 Dose: 20 mg [place] Carbonate ([place] Carbonate 300 Mg Capsule) 600 mg PO BID [facility] Last Admin: 02/17/25 08:56 Dose: 600 mg [place] Carbonate ([place] Carbonate 300 Mg Tablet) 300 mg PO BEDTIME [facility] Last Admin: 02/16/25 21:06 Dose: 300 mg Magnesium Hydroxide (Milk Of Magnesia 30 Ml Oral.Susp) 30 ml PO DAILY PRN PRN Reason: Constipation Metformin HCl (Metformin Hcl 500 Mg Tablet) 500 mg PO DAILY [facility] Last Admin: 02/17/25 08:56 Dose: 500 mg Omeprazole (Omeprazole 20 Mg Capsule.Dr) 20 mg PO DAILY@0630 [facility] Last Admin: 02/17/25 06:08 Dose: 20 mg Propranolol HCl (Propranolol Hcl 20 Mg Tablet) 20 mg PO BID [facility]; Protocol Last Admin: 02/17/25 08:57 Dose: 20 mg Quetiapine Fumarate (Quetiapine Fumarate 400 Mg Tablet) 400 mg PO BEDTIME [facility] Last Admin: 02/16/25 21:06 Dose: 400 mg Quetiapine Fumarate (Quetiapine Fumarate 25 Mg Tablet) 25 mg PO BID PRN PRN Reason: Anxiety, mild Last Admin: 02/13/25 10:12 Dose: 25 mg Rivaroxaban (Rivaroxaban 20 Mg Tablet) 20 mg PO DAILY@1700 [facility] Last Admin: 02/16/25 17:08 Dose: 20 mg Trazodone HCl (Trazodone Hcl 50 Mg Tablet) 50 mg PO BEDTIME MRX1 PRN PRN Reason: Insomnia Vitamin D (Cholecalciferol (Vitamin D3) 25 Mcg Tablet) 25 mcg PO DAILY [facility] Last Admin: 02/17/25 08:56 Dose: 25 mcg Allergies Allergies Allergy/AdvReac Type Severity Reaction Status Date / Time acetaminophen (From TYLENOL) Allergy Severe ANAPHYLAXIS Verified 02/10/25 07:50 aspirin (ASA) Allergy Severe ANAPHYLAXIS Verified 02/10/25 07:50 nitroglycerin (NITROGLYCERIN) Allergy Severe ANAPHYLAXIS Verified 02/10/25 07:50 amoxicillin (AMOXICILLIN) Allergy Mild RASH Verified 02/10/25 07:50 fish derived (fish) Allergy Anaphylaxis Verified 02/10/25 07:50 ibuprofen Allergy Anaphylaxis Verified 02/10/25 07:50 Poultry Allergy Anaphylaxis Verified 02/10/25 07:50 Assessment & Plan Assessment & Plan (1) Bipolar II disorder: Status: Acute Code(s): F31.81 - Bipolar II disorder (2) PTSD (post-traumatic stress disorder): Status: Acute Code(s): F43.10 - Post-traumatic stress disorder, unspecified Plan Patient is a 51y.o male with hx of of CAD C/b NC x6, stent x2, CHF, HTN, HLD, DM II, A Fib, COPD, Bipolar II, schizophrenic, PTSD who presenting to [facility] ED with chest pain. Symptoms started 3 days ago, were intermittent at first but has come constant. Upon finishing up with his support for chest pain, patient reports to the nurse that he is having SI with plan to jump off a bridge or building. Report that Feb/Mar is difficult for him as his mother has and the holidays are difficult d/t this. Report medications may not be working anymore. Also report that most suicide attempt was in September of this year by jumping in front of a truck. Report VH of his father coming after him with a gun. Formulation/clinical reasoning: Being homeless, Nov/Dec, holidays this time of the year is difficult as mom around this time. Increasing in depression and anxiety, Increasing in AVH. Given hx of PTSD, Bipolar II, SI with plan, patient would benefit in restrictive environment for own safety, medication adjustment and refer patient back to OP psychiatric services for aftercare plan. 02/09:Continue with home meds. patient has good knowledge and dosage of medications he supposes take daily. Agree with lab work for VPA and [place] level for 02/10/25. Nursing contacted during period of this note is written as patient reports Left side chest pain 10/10. Vs stable with slight elevated BP (153/76). Patient self reports vomited twice with blood -unwitnessed per nursing report. Will order Stat EKG. Order Stat EKG: NRS, Normal EKG for report severe left chest pain 10/10 which is similar to the pain he came in to ED for. Will continue to monitor and provide emotional support as needed. Plan Patient on 15 minute checks for safety. Admitted to [facility]. CV. Work with treatment team to do collateral. Contact the hospitalist regarding hospitalist consultation on admission: pending Physical Assessment H&P Per [facility] ED record: EKGs: a couple were done, Unremarkable. Request pain medication multiple times. Creatinine 0.60. Mag 1.7. BAL negative. +Opiate. Chest xray 2 view: unremarkable. 02/10: Active on unit. Patient reports feeling depressed ; pt stated, this time of year makes me suicidal because my mom was a holiday person and shes not with us. I usually feel good after being inpatient . Patient reports he is also looking for housing; pt educated that the social workers do not help with housing. Patient denies SI/HI/VH. He reports auditory hallucinations telling him to harm himself; pt stated, I would never act on it because I think of my daughter . [place] level 0.31 and Valproic acid level 23.5 on 02/10/25. Continue tx plan. 02/11: Active on unit. attending groups. Patient continues to report feeling depressed ; pt stated, I miss my mom and whole family . He reports suicidal ideation with plan to jump off a bridge ; +AH of feather voice telling me to harm myself . denies HI/VH. He reports hx of Seroquel PRN helping him in the past and requesting to be prescribed this. Added: Seroquel 25mg PO BID PRN. Will redraw Valproic acid level Sunday and [place] level over the weekend. 02/12:Patient continues to report feeling depressed ; pt stated, I feel like my depression is getting worse. I can't explain it . He continues to reports suicidal ideation; +AH of father voice telling me to harm myself . denies HI/VH. Valproic acid level ordered; awaiting results. Patient worried about where I'm going to go after here . Continue tx plan. 02/13: Patient continues to report feeling depressed ; pt reports chronic auditory hallucinations. He reports Seroquel PRN has been helpful in the past; encouraged to utilize his PRN Seroquel. He continues to reports suicidal ideation; no plan. denies HI/VH. Valproic acid level 31.4. [place] level ordered to be drawn on 02/15/25; pt aware. 02/14/25: Patient slept for 8 hours, denies any issue with appetite. Denies pain or chest pain. Observed visible most of the day in common area, social, playing game with peers. Denies SI/SIB/HI/AVH. Compliant with medication, denies side effects. He is aware that he will have lithium level tomorrow morning. 02/15/25: Patient continues to improve. Denies anxiety or depression. Denies safety concerns. Visible in common area. Reviewed [place] level with patient and medication changes. Also informed that POC will be down to BID instead of QID as his BS is mostly under control. Educate on health food and drink choices regarding diabetes. Patient also asks for Lozenge for sore throat. Occasionally he will reports severe chest pain which has no clinical indicated. He would hope being discharged in the future to a program and report that SW is working on it. Increase [place] up to 900mg at HS and continue with 600mg daily. Recheck level in 5 days. [place] level 0.43 on 02/15/25. 02/16: Active on unit. social with peers. attending groups. Patient reports he still feels depressed but getting a little better . He denies SI/HI/VH. Patient reports auditory hallucinations but states they have become less. Per nursing, slept 8 hours. Plan for discharge this week if continues to improve; pt aware. 02/17: Active on unit. social with peers. attending groups. Patient reports feeling better today; denies SI/HI/VH/AH. He reports sleeping well last night. He reports no longer having auditory hallucinations. Patient reports some anxiety regarding where he will go after discharge. Plan to discharge on ; pt aware. Continue tx plan. Patient educated on: diagnosis and medication risk/benefits Reason for continued inpatient stay Substantial Risk for: med/psych decompensation Time Spent With Patient Time: Total time managing care of this patient today _20___ minutes.
[2025-02-17 17:00] LABS: Glucose, Whole Blood 103 mg/dL (60-115)
--- NOTE | 2025-02-17 18:47 | PC.NURSE ---
At 1840 pt approached nurse's station and asked to speak with his nurse because I'm having 10/10 chest pain. I'll be in the side room watching TV. RN approached pt in the TV room and assessed vitals, 97.4 137/70 93 96% RR 16. Pt reported it as an elephant sitting on my chest. Provider Carlee willis.
[2025-02-17 21:20] VITALS: BP 147/61; PULSE 85; RESP 20; TEMP 36.3; O2SAT 96
[2025-02-18 07:47] LABS: Glucose, Whole Blood 101 mg/dL (60-115)
[2025-02-18 08:00] VITALS: BP 118/58; PULSE 75; RESP 18; TEMP 36.2; O2SAT 92
[2025-02-18] MEDS: Ferrous Sulfate 324 MG TABLET.DR PO (08:26)
[2025-02-18] MEDS: Throat Lozenge, Medicated LOZENGE 1 LOZENGE MUCOUS MEM ×2 (08:34→20:17)
--- NOTE | 2025-02-18 13:35 | HO.PSYCHPN ---
Subjective Subjective Date of Service: 02/18/25 Reason For Visit: F43.10 PTSD F79 Intellecturl d/o Subjective Notes: Conditional Voluntary Interim History: Active on unit. social with peers. attending groups. observed laughing and joking with staff and peers. Patient reports feeling good but anxious about leaving ; He reports sleeping well. denies SI/HI/VH/AH. Per social sciences lecturer, pt was accepted to respite; pt aware. Patient reports he plans on following up with his outpatient providers. Medication Compliance: Yes Side effects from medications: No Attending Groups: Yes Mental Status Exam Mental Status Exam Narrative: Pt is alert and oriented; behavior is cooperative and calm; dressed in casual attire; mood is described as good ; eye contact appropriate; Speech is normal rate, volume and not pressured; thought process is organized; Thought content is on discharge; denies SI/HI/VH/AH. Diagnostics Vital Signs (24Hr): Vital Signs - 24 hr 02/17/25 21:20 02/18/25 08:00 Temperature 97.3 F 97.2 F Pulse Rate 85 75 Respiratory Rate 20 18 Blood Pressure 147/61 H 118/58 L Pulse Oximetry 96 92 Oxygen Delivery Method Room Air Room Air BMI result Body Mass Index 38.8 Labs 02/17/25 07:58 Labs: Laboratory Results - last 48 hr 02/16/25 02/17/25 02/17/25 16:51 07:37 07:58 Creatinine 0.62 Estim Creat Clear Calc 191.4 Estimated GFR > 60 POC Glucose 156 H 132 H 02/17/25 02/18/25 16:49 07:36 Creatinine Estim Creat Clear Calc Estimated GFR POC Glucose 103 101 Medications Medications Current Medications Al Hydroxide/Mg Hydroxide (Magnesium Hydrox/Alum Hydrox 30 Ml Oral.Susp) 30 ml PO Q6H PRN PRN Reason: Heartburn/Nausea Albuterol Sulfate (Albuterol Sulfate 90 Mcg 8 Gm Inhaler) 2 puff INHALE Q6H PRN PRN Reason: Shortness of Breath Last Admin: 02/16/25 08:53 Dose: 2 puff Atorvastatin Calcium (Atorvastatin Calcium 40 Mg Tablet) 40 mg PO BEDTIME ALYCIA Last Admin: 02/17/25 21:31 Dose: 40 mg Benzocaine (Throat Lozenge, Medicated Lozenge) 1 lozenge MUCOUS MEM Q2H PRN PRN Reason: Sore Throat Last Admin: 02/18/25 08:34 Dose: 1 lozenge Clopidogrel Bisulfate (Clopidogrel Bisulfate 75 Mg Tablet) 75 mg PO DAILY [facility] Last Admin: 02/18/25 08:26 Dose: 75 mg Dextrose (Dextrose 50 % 25 Gm/50 Ml Syringe) 25 gm IVPUSH Q15M PRN; Protocol PRN Reason: per Hypoglycemia Standing Ord. Divalproex Sodium (Divalproex Sodium 250 Mg Tablet.) 250 mg PO BEDTIME [facility] Last Admin: 02/17/25 21:31 Dose: 250 mg Divalproex Sodium (Divalproex Sodium 500 Mg Tablet.) 1,000 mg PO DAILY [facility] Last Admin: 02/18/25 08:25 Dose: 1,000 mg Escitalopram Oxalate (Escitalopram Oxalate 10 Mg Tablet) 10 mg PO DAILY [facility] Last Admin: 02/18/25 08:26 Dose: 10 mg Ferrous Sulfate (Ferrous Sulfate 324 Mg Tablet.) 324 mg PO DAILY [facility] Last Admin: 02/18/25 08:26 Dose: 324 mg Fluticasone Propionate (Fluticasone Propionate Nasal 16 Gm [place]) 1 spray NOSTRIL-B BID [facility] Last Admin: 02/18/25 09:56 Dose: Not Given Glucose (Glucose Gel 15 Gm Gel..Gram.) 15 gm PO Q15M PRN; Protocol PRN Reason: per Hypoglycemia Standing Ord. Guaifenesin (Guaifenesin La 600 Mg Tab.Er.12h) 600 mg PO BID PRN PRN Reason: congestion Last Admin: 02/17/25 21:30 Dose: 600 mg Hydroxyzine HCl (Hydroxyzine Hcl 25 Mg Tablet) 25 mg PO Q6H PRN PRN Reason: mild anxiety Insulin Human Lispro (Insulin Lispro 100 Unit/Ml 3 Ml Vial) 0 unit SUBCUT BID@0800,1600 [facility]; Protocol Last Admin: 02/18/25 08:26 Dose: Not Given Levothyroxine Sodium (Levothyroxine Sodium 25 Mcg Tablet) 25 mcg PO DAILY@0630 [facility] Last Admin: 02/18/25 06:34 Dose: 25 mcg Lisinopril (Lisinopril 20 Mg Tablet) 20 mg PO DAILY [facility]; Protocol Last Admin: 02/18/25 08:26 Dose: 20 mg [place] Carbonate ([place] Carbonate 300 Mg Capsule) 600 mg PO BID [facility] Last Admin: 02/18/25 08:26 Dose: 600 mg [place] Carbonate ([place] Carbonate 300 Mg Tablet) 300 mg PO BEDTIME [facility] Last Admin: 02/17/25 21:31 Dose: 300 mg Magnesium Hydroxide (Milk Of Magnesia 30 Ml Oral.Susp) 30 ml PO DAILY PRN PRN Reason: Constipation Metformin HCl (Metformin Hcl 500 Mg Tablet) 500 mg PO DAILY [facility] Last Admin: 02/18/25 08:26 Dose: 500 mg Omeprazole (Omeprazole 20 Mg Capsule.Dr) 20 mg PO DAILY@0630 [facility] Last Admin: 02/18/25 06:34 Dose: 20 mg Propranolol HCl (Propranolol Hcl 20 Mg Tablet) 20 mg PO BID [facility]; Protocol Last Admin: 02/18/25 08:26 Dose: 20 mg Quetiapine Fumarate (Quetiapine Fumarate 400 Mg Tablet) 400 mg PO BEDTIME [facility] Last Admin: 02/17/25 21:30 Dose: 400 mg Quetiapine Fumarate (Quetiapine Fumarate 25 Mg Tablet) 25 mg PO BID PRN PRN Reason: Anxiety, mild Last Admin: 02/13/25 10:12 Dose: 25 mg Rivaroxaban (Rivaroxaban 20 Mg Tablet) 20 mg PO DAILY@1700 [facility] Last Admin: 02/17/25 17:30 Dose: 20 mg Trazodone HCl (Trazodone Hcl 50 Mg Tablet) 50 mg PO BEDTIME MRX1 PRN PRN Reason: Insomnia Vitamin D (Cholecalciferol (Vitamin D3) 25 Mcg Tablet) 25 mcg PO DAILY [facility] Last Admin: 02/18/25 08:26 Dose: 25 mcg Allergies Allergies Allergy/AdvReac Type Severity Reaction Status Date / Time acetaminophen (From TYLENOL) Allergy Severe ANAPHYLAXIS Verified 02/10/25 07:50 aspirin (ASA) Allergy Severe ANAPHYLAXIS Verified 02/10/25 07:50 nitroglycerin (NITROGLYCERIN) Allergy Severe ANAPHYLAXIS Verified 02/10/25 07:50 amoxicillin (AMOXICILLIN) Allergy Mild RASH Verified 02/10/25 07:50 fish derived (fish) Allergy Anaphylaxis Verified 02/10/25 07:50 ibuprofen Allergy Anaphylaxis Verified 02/10/25 07:50 Poultry Allergy Anaphylaxis Verified 02/10/25 07:50 Assessment & Plan Assessment & Plan (1) Bipolar II disorder: Status: Acute Code(s): F31.81 - Bipolar II disorder (2) PTSD (post-traumatic stress disorder): Status: Acute Code(s): F43.10 - Post-traumatic stress disorder, unspecified Plan Patient is a 51y.o male with hx of of CAD C/b FL x6, stent x2, CHF, HTN, HLD, DM II, A Fib, COPD, Bipolar II, schizophrenic, PTSD who presenting to [facility] ED with chest pain. Symptoms started 3 days ago, were intermittent at first but has come constant. Upon finishing up with his support for chest pain, patient reports to the nurse that he is having SI with plan to jump off a bridge or building. Report that Feb/Mar is difficult for him as his mother has and the holidays are difficult d/t this. Report medications may not be working anymore. Also report that most suicide attempt was in September of this year by jumping in front of a truck. Report VH of his father coming after him with a gun. Formulation/clinical reasoning: Being homeless, Nov/Mar, holidays this time of the year is difficult as mom around this time. Increasing in depression and anxiety, Increasing in AVH. Given hx of PTSD, Bipolar II, SI with plan, patient would benefit in restrictive environment for own safety, medication adjustment and refer patient back to OP psychiatric services for aftercare plan. 02/09:Continue with home meds. patient has good knowledge and dosage of medications he supposes take daily. Agree with lab work for VPA and [place] level for 02/10/25. Nursing contacted during period of this note is written as patient reports Left side chest pain 10/10. Vs stable with slight elevated BP (153/76). Patient self reports vomited twice with blood -unwitnessed per nursing report. Will order Stat EKG. Order Stat EKG: NRS, Normal EKG for report severe left chest pain 10/10 which is similar to the pain he came in to ED for. Will continue to monitor and provide emotional support as needed. Plan Patient on 15 minute checks for safety. Admitted to [facility]. CV. Work with treatment team to do collateral. Contact the hospitalist regarding hospitalist consultation on admission: pending Physical Assessment H&P Per [facility] ED record: EKGs: a couple were done, Unremarkable. Request pain medication multiple times. Creatinine 0.60. Mag 1.7. BAL negative. +Opiate. Chest xray 2 view: unremarkable. 02/10: Active on unit. Patient reports feeling depressed ; pt stated, this time of year makes me suicidal because my mom was a holiday person and shes not with us. I usually feel good after being inpatient . Patient reports he is also looking for housing; pt educated that the social workers do not help with housing. Patient denies SI/HI/VH. He reports auditory hallucinations telling him to harm himself; pt stated, I would never act on it because I think of my daughter . [place] level 0.31 and Valproic acid level 23.5 on 02/10/25. Continue tx plan. 02/11: Active on unit. attending groups. Patient continues to report feeling depressed ; pt stated, I miss my mom and whole family . He reports suicidal ideation with plan to jump off a bridge ; +AH of feather voice telling me to harm myself . denies HI/VH. He reports hx of Seroquel PRN helping him in the past and requesting to be prescribed this. Added: Seroquel 25mg PO BID PRN. Will redraw Valproic acid level Sunday and [place] level over the weekend. 02/12:Patient continues to report feeling depressed ; pt stated, I feel like my depression is getting worse. I can't explain it . He continues to reports suicidal ideation; +AH of father voice telling me to harm myself . denies HI/VH. Valproic acid level ordered; awaiting results. Patient worried about where I'm going to go after here . Continue tx plan. 02/13: Patient continues to report feeling depressed ; pt reports chronic auditory hallucinations. He reports Seroquel PRN has been helpful in the past; encouraged to utilize his PRN Seroquel. He continues to reports suicidal ideation; no plan. denies HI/VH. Valproic acid level 31.4. [place] level ordered to be drawn on 02/15/25; pt aware. 02/14/25: Patient slept for 8 hours, denies any issue with appetite. Denies pain or chest pain. Observed visible most of the day in common area, social, playing game with peers. Denies SI/SIB/HI/AVH. Compliant with medication, denies side effects. He is aware that he will have lithium level tomorrow morning. 02/15/25: Patient continues to improve. Denies anxiety or depression. Denies safety concerns. Visible in common area. Reviewed [place] level with patient and medication changes. Also informed that POC will be down to BID instead of QID as his BS is mostly under control. Educate on health food and drink choices regarding diabetes. Patient also asks for Lozenge for sore throat. Occasionally he will reports severe chest pain which has no clinical indicated. He would hope being discharged in the future to a program and report that SW is working on it. Increase [place] up to 900mg at HS and continue with 600mg daily. Recheck level in 5 days. [place] level 0.43 on 02/15/25. 02/16: Active on unit. social with peers. attending groups. Patient reports he still feels depressed but getting a little better . He denies SI/HI/VH. Patient reports auditory hallucinations but states they have become less. Per nursing, slept 8 hours. Plan for discharge this week if continues to improve; pt aware. 02/17: Active on unit. social with peers. attending groups. Patient reports feeling better today; denies SI/HI/VH/AH. He reports sleeping well last night. He reports no longer having auditory hallucinations. Patient reports some anxiety regarding where he will go after discharge. Plan to discharge on ; pt aware. Continue tx plan. 02/18: Active on unit. social with peers. attending groups. observed laughing and joking with staff and peers. Patient reports feeling good but anxious about leaving ; He reports sleeping well. denies SI/HI/VH/AH. Per social sciences lecturer, pt was accepted to respite; pt aware. Patient reports he plans on following up with his outpatient providers. Patient educated on: diagnosis and medication risk/benefits Reason for continued inpatient stay Substantial Risk for: stable for discharge Time Spent With Patient Time: Total time managing care of this patient today _20___ minutes.
[2025-02-18 16:47] LABS: Glucose, Whole Blood 118 mg/dL (60-115)
[2025-02-18 20:00] VITALS: BP 122/66; PULSE 72; RESP 20; TEMP 36.3; O2SAT 99
[2025-02-18 21:19] VITALS: BP 122/66; PULSE 72
[2025-02-18] MEDS: guaiFENesin LA 600 MG TAB.ER.12H PO (21:23)
[2025-02-19 07:31] LABS: Glucose, Whole Blood 123 mg/dL (60-115)
[2025-02-19 08:00] VITALS: BP 126/69; PULSE 70; RESP 16; TEMP 36.5; O2SAT 95
[2025-02-19 08:31] VITALS: BP 126/69; PULSE 70
[2025-02-19] MEDS: Ferrous Sulfate 324 MG TABLET.DR PO (08:31)
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
== END 2025-02-19 10:39 | disposition home or self-care (01) | DRG 885 ==
PROVIDERS: Nurse Practitioner Psychiatric/Mental Health; Admitting Provider Psychiatry & Neurology Psychiatry; Responsible Provider Registered Nurse; Visit Provider Psychiatry & Neurology Psychiatry
DX: F31.81 Bipolar II disorder (principal); Z59.02 Unsheltered homelessness; F43.10 Post-traumatic stress disorder, unspecified; I25.10 Atherosclerotic heart disease of native coronary artery without angina pectoris; E03.9 Hypothyroidism, unspecified; F84.0 Autistic disorder; I10 Essential (primary) hypertension; E78.5 Hyperlipidemia, unspecified; E11.9 Type 2 diabetes mellitus without complications; Z95.5 Presence of coronary angioplasty implant and graft; Z86.711 Personal history of pulmonary embolism; Z79.02 Long term (current) use of antithrombotics/antiplatelets; Z79.01 Long term (current) use of anticoagulants; Z79.890 Hormone replacement therapy; Z79.899 Other long term (current) drug therapy
CPT/HCPCS: 36415; 80051; 80053; 80061; 80076; 80164; 80178; 82140; 82565; 82947; 83036; 84439; 84443; 84520; 93005

== ENCOUNTER 2025-02-09 15:39 | Outpatient (BNV) | payer OTHER, SELFPAY | END 2025-02-09 22:59 | PROVIDERS: Admitting Provider Psychiatry & Neurology Psychiatry; Responsible Provider Registered Nurse; Visit Provider Internal Medicine Cardiovascular Disease | DX: R07.89 Other chest pain (principal) | CPT/HCPCS: 93010 ==

== ENCOUNTER → 2025-02-09 15:39 | Outpatient (BNV) | payer OTHER, SELFPAY | PROVIDERS: Admitting Provider Psychiatry & Neurology Psychiatry; Visit Provider Nurse Practitioner Psychiatric/Mental Health | DX: F31.81 Bipolar II disorder (principal); F43.10 Post-traumatic stress disorder, unspecified | CPT/HCPCS: 90792; 99231; 99232 ==

== ENCOUNTER → 2025-02-09 15:39 | Outpatient (BNV) | payer SELFPAY | PROVIDERS: Admitting Provider Psychiatry & Neurology Psychiatry; Responsible Provider Registered Nurse; Visit Provider Nurse Practitioner Family | DX: R07.89 Other chest pain (principal) | CPT/HCPCS: 99221 ==